=== PATIENT | male | born 1940 | race Caucasian/White ===

== ENCOUNTER 2016-07-30 22:01 | Inpatient (IN) | payer MEDICAID, OTHER ==
[2016-07-30] MEDS ORDERED: Sodium Chloride 0.9% 1,000 ML IV ONE ×2 (22:27→23:50)
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
[2016-07-30] MEDS ORDERED: Sodium Chloride 0.9% 1,000 ML ONE (23:19)
[2016-07-30 23:22] LABS: BASO # 0.1 K/uL (0.0-0.2); BASO % 0.9 % (0.0-2.0); EOS # 0.5 K/uL (0.0-0.7); EOS % 6.2 % (0.0-4.0); HEMATOCRIT 37.9 % (35.0-51.0); LYMPH # 3.2 K/uL (1.0-4.3); LYMPH % 43.9 % (20.0-40.0); MEAN CORPUSCULAR HEMOGLOBIN 27.2 pg (27.0-31.0); MEAN CORPUSCULAR HGB CONC 33.6 g/dL (33.0-37.0); MEAN PLATELET VOLUME 8.9 fL (7.2-11.7); MONO # 0.4 K/uL (0.0-0.8); MONO % 5.4 % (0.0-10.0); NRBC % 0.1 % (0.0-2.0); WHITE BLOOD COUNT 7.3 K/uL (4.8-10.8)
[2016-07-30 23:32] LABS: CHLORIDE 98 mmol/L (98-107); SODIUM 135 mmol/L (132-148)
[2016-07-30 23:34] LABS: GFR AFRICAN-AMERICAN > 60
[2016-07-30 23:35] LABS: ALB/GLOB RATIO 1.5 (1.0-2.1); ALKALINE PHOSPHATASE 68 U/L (38-126); ALT/SGPT 27 U/L (21-72); AST/SGOT 21 U/L (17-59); BILIRUBIN,TOTAL 0.4 mg/dL (0.2-1.3); BLOOD UREA NITROGEN 14 mg/dL (9-20); CARBON DIOXIDE 24 mmol/L (22-30); GLUCOSE,RANDOM 107 mg/dL (75-110); TOTAL PROTEIN 7.1 g/dL (6.3-8.3)
[2016-07-31] MEDS: levETIRAcetam 500 MG in Sodium Chloride 0.9% 100 ML IVPB SCH ×2 (00:37→11:25)
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
[2016-07-31] MEDS: (Novolin R) Insulin Human Regular 100 units/ml vial SC SCH ×4 (04:58→18:06)
[2016-07-31] MEDS: Aritificial Tears (15ml) OD SCH ×5 (05:15→21:53)
--- NOTE | 2016-07-31 08:29 | RAD ---
HISTORY: r/o infiltrate bed 4 COMPARISON: No prior. FINDINGS: LUNGS: Mild venous congestion. Patchy increased markings within the right infrahilar region. Linear atelectasis at the left lung base with some blunting of the left costophrenic angle. Right hilar prominence. PLEURA: No significant pleural effusion identified, no pneumothorax apparent. CARDIOVASCULAR: Tortuous aorta. OSSEOUS STRUCTURES: No significant abnormalities. VISUALIZED UPPER ABDOMEN: Normal. OTHER FINDINGS: None. IMPRESSION: Mild venous congestion. Patchy increased markings within the right infrahilar region. Linear atelectasis at the left lung base with some blunting of the left costophrenic angle. Right hilar prominence.
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
[2016-07-31] MEDS ORDERED: POLYETHYLENE GLYCOL 3350 17 GM/Dose PACKET PO SCH (10:00)
--- NOTE | 2016-07-31 14:04 | CT ---
PROCEDURE: CT HEAD WITHOUT CONTRAST. HISTORY: Headache COMPARISON: None available. TECHNIQUE: Axial computed tomography images were obtained through the head/brain without intravenous contrast. Radiation dose: Total exam DLP = 948 mGy-cm. This CT exam was performed using one or more of the following dose reduction techniques: Automated exposure control, adjustment of the mA and/or kV according to patient size, and/or use of iterative reconstruction technique. FINDINGS: HEMORRHAGE: Large right extra-axial hemorrhage with severe mass effect, and midline shift. The hemorrhage measures up to 3 centimeters in maximal dimension. Associated asymmetric enlargement of the right temporal horn suggestive of early entrapment. BRAIN: No mass effect or edema. No atrophy or chronic microvascular ischemic changes. VENTRICLES: Unremarkable. No hydrocephalus. CALVARIUM: Unremarkable. PARANASAL SINUSES: Unremarkable as visualized. No significant inflammatory changes. MASTOID AIR CELLS: Unremarkable as visualized. No inflammatory changes. OTHER FINDINGS: None. IMPRESSION: Large right acute extra-axial hemorrhage with severe mass effect and midline shift. Findings correspond to virtual Radiology interpretation.
--- NOTE | 2016-07-31 16:05 | CP.PCM.PN ---
Subjective - Date & Time of Evaluation Date of Evaluation: 07/31/16 Time of Evaluation: 16:05 - Subjective Subjective: no cp, no sob, moving all ext no problems with vision Objective - Vital Signs/Intake and Output Vital Signs (last 24 hours): Temp Pulse Resp BP Pulse Ox 97.9 F 62 16 128/69 93 L 07/31/16 08:00 07/31/16 13:31 07/31/16 13:31 07/31/16 13:31 07/31/16 13:31 Intake and Output: 07/31/16 07/31/16 06:59 18:59 Intake Total 300 610 Output Total 420 350 Balance -120 260 - Medications Medications: Current Medications Artificial Tears (Artificial Tears) 1 ml OD Q4H [facility] Last Admin: 07/31/16 13:06 Dose: 1 drp Famotidine (Pepcid) 20 mg PO DAILY [facility] Last Admin: 07/31/16 09:51 Dose: 20 mg Levetiracetam 500 mg/ Sodium (Chloride) 105 mls @ 420 mls/hr IVPB Q12H [facility] Last Admin: 07/31/16 11:25 Dose: 420 mls/hr Insulin Human Regular (Novolin R) 0 unit SC Q6H [facility] PRN Reason: Protocol Last Admin: 07/31/16 11:58 Dose: Not Given Latanoprost (Xalatan Opht) 0 ml OD HS [facility] Lisinopril (Zestril) 5 mg PO DAILY [facility] Last Admin: 07/31/16 09:51 Dose: 5 mg Timolol Maleate (Timoptic 0.5% Ophth Soln) 0 drop OD DAILY [facility] Last Admin: 07/31/16 12:05 Dose: 1 drop - Labs Labs: PT 11.2 SECONDS (9.7-12.2) 07/30/16 23:18 INR 1.0 07/30/16 23:18 APTT 29 SECONDS (21-34) 07/30/16 23:18 - Constitutional Appears: Well, No Acute Distress - Head Exam Head Exam: ATRAUMATIC - Eye Exam Additional comments: left eye no vision due to old injury likely - ENT Exam ENT Exam: Mucous Membranes Moist - Respiratory Exam Respiratory Exam: Clear to Ausculation Bilateral, NORMAL BREATHING PATTERN. absent: Accessory Muscle Use, Rales, Rhonchi, Wheezes - Cardiovascular Exam Cardiovascular Exam: REGULAR RHYTHM, +S1, +S2 - GI/Abdominal Exam GI & Abdominal Exam: Soft, Normal Bowel Sounds. absent: Tenderness, Organomegaly - Neurological Exam Neurological Exam: Alert, Awake, Oriented x3 Neuro motor strength exam: Left Upper Extremity: 5, Right Upper Extremity: 5, Left Lower Extremity: 5, Right Lower Extremity: 5 - Psychiatric Exam Psychiatric exam: Normal Affect, Normal Mood - Skin Skin Exam: Normal Color Assessment and Plan - Assessment and Plan (Free Text) Assessment: 1. Right Intracranial Hemorrhage - Neurosurgery, Dr. Bolden, consulted. Plan for surgery tomorrow. - Levetiracetam 500 mg IVPB Q12H - Normal Saline IV @ 75 cc - Blood pressure controlled 146/88 - NPO Diet - Neuro checks q2h CT Head without contrast: 1. The left orbit appears to be rotated 90 degrees to the right while the right orbit appears to be oriented normally. 2. 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 This results in severe mass effect on the underlying brain, including 1.4 cm of leftward midline shift and compression of the right lateral ventricle. Asymmetric enlargement of the right temporal horn suggestive of early entrapment. 2. Hypertension - Hold home medication Lisinopril 5 mg po daily 3. DM -2 -holding metformin 4. Constipation - Consider continuing home medication Miralax Patient's risk factors are DM2, Age, Hypertension the Hypertension and DM are medically optimized for OR. Although it seems this is an emergent procedure and likely risk vs benefit should not be assessed in that situation in any case for emergent procedures. ECHO was ordered and cardiology consultation was placed as well. moderate patient risk for high risk procedure risk of dm, hypertension and age we will monitor post operatively
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
[2016-07-31] MEDS: Dextrose 5%/0.45% NS 1,000 ML IV SCH (20:40)
[2016-07-31] MEDS: Latanoprost 2.5 ml Opht Soln OD SCH (21:54)
[2016-08-01] MEDS: levETIRAcetam 500 MG in Sodium Chloride 0.9% 100 ML IVPB SCH ×3 (00:13→22:51)
[2016-08-01] MEDS: (Novolin R) Insulin Human Regular 100 units/ml vial SC SCH ×4 (01:29→18:08)
[2016-08-01] MEDS: Aritificial Tears (15ml) OD SCH ×6 (02:26→22:34)
[2016-08-01 06:22] LABS: BASO % 0.7 % (0.0-2.0); EOS # 0.3 K/uL (0.0-0.7); EOS % 5.8 % (0.0-4.0); HEMATOCRIT 33.1 % (35.0-51.0); LYMPH % 39.8 % (20.0-40.0); MEAN CORPUSCULAR HEMOGLOBIN 27.5 pg (27.0-31.0); MEAN CORPUSCULAR HGB CONC 31.2 g/dL (33.0-37.0); MEAN PLATELET VOLUME 8.8 fL (7.2-11.7); MONO # 0.3 K/uL (0.0-0.8); RED CELL DISTRIBUTION WIDTH 15.6 % (11.5-14.5); WHITE BLOOD COUNT 4.9 K/uL (4.8-10.8)
[2016-08-01 06:28] LABS: MEAN CELL VOLUME 88.2 fL (80.0-94.0)
[2016-08-01 06:44] LABS: CHLORIDE 97 mmol/L (98-107)
[2016-08-01 06:45] LABS: POTASSIUM 3.1 mmol/L (3.6-5.2); SODIUM 129 mmol/L (132-148)
[2016-08-01 06:47] LABS: BILIRUBIN,TOTAL 0.6 mg/dL (0.2-1.3); GFR AFRICAN-AMERICAN > 60
[2016-08-01 06:48] LABS: ALB/GLOB RATIO 1.3 (1.0-2.1); ALKALINE PHOSPHATASE 58 U/L (38-126); ALT/SGPT 26 U/L (21-72); AST/SGOT 19 U/L (17-59); BLOOD UREA NITROGEN 8 mg/dL (9-20); CALCIUM 7.3 mg/dl (8.6-10.4); CARBON DIOXIDE 23 mmol/L (22-30); PHOSPHOROUS 3.2 mg/dL (2.5-4.5)
[2016-08-01 06:49] LABS: MAGNESIUM 1.8 mg/dL (1.6-2.3)
[2016-08-01 07:11] LABS: GLUCOSE,RANDOM 655 mg/dL (75-110)
[2016-08-01] MEDS ORDERED: ceFAZolin IV 1 gm in Dextrose 0 GM/0 ML BAG IVPB ONE (07:31)
[2016-08-01] MEDS ORDERED: Absorbable Gelatin Sponge Size 100 ONE (07:31)
[2016-08-01] MEDS ORDERED: Bupivacaine HCl 0.5% PF (10 ml) Inj ONE (07:31)
[2016-08-01] MEDS ORDERED: Bacitracin Ointment 30 GM TUBE ONE (07:32)
[2016-08-01] MEDS ORDERED: Thrombin Topical 5,000 IU Spray Kit ONE (07:32)
[2016-08-01] MEDS ORDERED: Lidocaine 1% Inj (20ml) ONE (07:32)
[2016-08-01] MEDS ORDERED: Absorbable Gelatin Sponge Size 12-7 ONE (07:33)
[2016-08-01] MEDS ORDERED: Lidocaine 2% w Epi 1:100,000 Inj IJ ONE (07:36)
--- NOTE | 2016-08-01 07:41 | CARD ---
APPROVED REPORT EXAM: Two-dimensional and M-mode echocardiogram with Doppler and color Doppler. Other Information Quality : GoodRhythm : NSR INDICATION PRE-OP CARDIAC CLEARANCE RISK FACTORS Hypertension Diabetes M-Mode DIMENSIONS RVDd2.87 (2.1-3.2cm)Left Atrium (MM)3.69 (2.5-4.0cm) IVSd0.77 (0.7-1.1cm)Aortic Root3.47 (2.2-3.7cm) LVDd3.71 (4.0-5.6cm)Aortic Cusp Exc.2.10 (1.5-2.0cm) PWd0.80 (0.7-1.1cm)FS (%) 51 % LVDs1.81 (2.0-3.8cm)LVEF (%)83 (>50%) Mitral Valve MV E Bkdcnyyl95.6cm/sMV A Hexzsnpw91.0cm/sE/A ratio0.7 TDI E/Lateral E'0.0E/Medial E'0.0 Tricuspid Valve TR Peak [id number]/sTR Peak Gr.[id number] LEFT VENTRICLE The left ventricle is normal size. There is normal left ventricular wall thickness. The left ventricular function is normal. The left ventricular ejection fraction is within the normal range. The Ejection Fraction is >55%. No regional wall motion abnormalities noted. The left ventricular diastolic function is normal. No left ventricle thrombus noted on this study. There is no ventricular septal defect visualized. There is no left ventricular aneurysm. There is no mass noted in the left ventricle. RIGHT VENTRICLE The right ventricle is normal size. There is normal right ventricular wall thickness. The right ventricular systolic function is normal. ATRIA The left atrium size is normal. The right atrium size is normal. The interatrial septum is intact with no evidence for an atrial septal defect. AORTIC VALVE The aortic valve is normal in structure and function. No aortic regurgitation is present. There is no aortic valvular stenosis. There is no aortic valvular vegetation. MITRAL VALVE The mitral valve is normal in structure and function. There is no evidence of mitral valve prolapse. There is no mitral valve stenosis. There is no mitral valve regurgitation noted. TRICUSPID VALVE The tricuspid valve is normal in structure and function. There is trace tricuspid regurgitation. Right ventricular systolic pressure is estimated at 30-40 mmHg. There is mild pulmonary hypertension. There is no tricuspid valve prolapse or vegetation. There is no tricuspid valve stenosis. PULMONIC VALVE The pulmonary valve is normal in structure and function. There is no pulmonic valvular regurgitation. There is no pulmonic valvular stenosis. GREAT VESSELS The aortic root is normal in size. The ascending aorta is normal in size. The pulmonary artery is normal. The IVC is normal in size and collapses >50% with inspiration. PERICARDIAL EFFUSION The pericardium appears normal. There is no pleural effusion. <Conclusion> The left ventricle is normal size. The left ventricular ejection fraction is within the normal range. The Ejection Fraction is >55%.
[2016-08-01] MEDS ORDERED: Propofol 10 mg/ml Inj (20 ML) ONE ×2 (07:45→09:10)
[2016-08-01] MEDS ORDERED: Bacitracin 50,000 UNIT in Sodium Chloride 0.9% Irrig 1,000 ML IR SCH (08:00)
[2016-08-01] MEDS ORDERED: Lactated Ringer's 1,000 ML IV ONE (08:15)
[2016-08-01] MEDS ORDERED: Vancomycin 1 gm/D5W 200 ml 1 GM/200 ML BAG IVPB ONE (08:22)
[2016-08-01] MEDS ORDERED: Remifentanil 1 mg/3 ml Vial IV ONE (08:37)
--- NOTE | 2016-08-01 08:44 | CARD ---
APPROVED REPORT EKG Measurement Heart [id number] CO 180P50 [id number] <Conclusion> Normal sinus rhythm Normal ECG
[2016-08-01] MEDS ORDERED: Rocuronium 10 mg/ml (10 ml) ONE (09:06)
[2016-08-01] MEDS ORDERED: Neostigmine Methylsulfate 3mg/3ml Syringe IV ONE (09:06)
--- NOTE | 2016-08-01 09:27 | PCM.SURG1 ---
Surgeon's Initial Post Op Note - Surgeon's Notes Surgeon: bertha Eligibility Supervisor: none Type of Anesthesia: General Endo Pre-Operative Diagnosis: r csdh Operative Findings: csdh Post-Operative Diagnosis: same Operation Performed: naomy hole evac of sdh Specimen/Specimens Removed: sdh Estimated Blood Loss: EBL {In ML}: 150 Blood Products Given: N/A Drains Used: Manteno (10 fr rrc in sd space to sterile garzon bag), Sump Drain Post-Op Condition: Good Date of Surgery/Procedure: 08/01/16 Time of Surgery/Procedure: 09:26
--- NOTE | 2016-08-01 13:57 | CP.PCM.PN ---
Subjective - Date & Time of Evaluation Date of Evaluation: 08/01/16 Time of Evaluation: 13:40 - Subjective Subjective: Medical Attending Note Follow-up: Subdural Hemorrhage s/p [place] and evacuation POD 0, Hypertension, Diabetes type 2, Constipation Patient seen and examined at bedside. Patient's [place] language is Urdu. Assistance in translation provided by medical student, Garret, Urdu-speaking. At bedside, person who identifies himself as patient's family friend. Patient completed Kyler hole and evacuation of subdural hemorrhage this morning by neurosurgery. Patient denies headache, denies dizziness, denies chest pain, denies shortness of breathe, denies abdominal pain, denies nausea, denies vomitting, and reports he wants to get up and use the bathroom. Explained to the patient he should not be getting up or moving around in light of surgery he completed this morning, instructed patient that it is okay, the nursing will help to use the bathroom. Patient noted has left eye adduction, which reported by family friend has been present for quite some time and that he is here visiting. Objective - Vital Signs/Intake and Output Vital Signs (last 24 hours): Temp Pulse Resp BP Pulse Ox 98 F 74 21 156/85 H 99 08/01/16 12:00 08/01/16 13:15 08/01/16 13:15 08/01/16 13:15 08/01/16 13:15 Intake and Output: 08/01/16 08/01/16 06:59 18:59 Intake Total 750 625 Output Total 800 500 Balance -50 125 - Medications Medications: Current Medications Artificial Tears (Artificial Tears) 1 ml OD Q4H [facility] Last Admin: 08/01/16 13:23 Dose: 1 drp Famotidine (Pepcid) 20 mg PO DAILY [facility] Last Admin: 08/01/16 10:17 Dose: 20 mg Levetiracetam 500 mg/ Sodium (Chloride) 105 mls @ 420 mls/hr IVPB Q12H [facility] Last Admin: 08/01/16 11:39 Dose: 420 mls/hr Dextrose/Sodium Chloride (Dextrose 5%/0.45% Ns 1000 Ml) 1,000 mls @ 75 mls/hr IV .[id number] [facility] Last Admin: 07/31/16 20:40 Dose: 75 mls/hr Insulin Human Regular (Novolin R) 0 unit SC Q6H [facility] PRN Reason: Protocol Last Admin: 08/01/16 11:40 Dose: Not Given Latanoprost (Xalatan Opht) 0 ml OD HS [facility] Last Admin: 07/31/16 21:54 Dose: 2.5 ml Lisinopril (Zestril) 5 mg PO DAILY [facility] Last Admin: 08/01/16 10:20 Dose: Not Given Timolol Maleate (Timoptic 0.5% Ophth Soln) 0 drop OD DAILY [facility] Last Admin: 08/01/16 10:17 Dose: 1 drop - Labs Labs: 08/01/16 06:17 08/01/16 06:17 PT 11.2 SECONDS (9.7-12.2) 07/30/16 23:18 INR 1.0 07/30/16 23:18 APTT 29 SECONDS (21-34) 07/30/16 23:18 - Constitutional Appears: Non-toxic, No Acute Distress - Head Exam Additional comments: Dressing over right occipital; drain connected; bloody output Left eye prominently adducts Speaks clearly No noted facial droop - Eye Exam Eye Exam: absent: Conjunctival injection, Periorbital swelling, Scleral icterus Pupil Exam: NORMAL ACCOMODATION (right eye), PERRL ( ) - ENT Exam ENT Exam: Mucous Membranes Moist - Respiratory Exam Respiratory Exam: Clear to Ausculation Bilateral, NORMAL BREATHING PATTERN. absent: Rales, Rhonchi, Wheezes - Cardiovascular Exam Cardiovascular Exam: REGULAR RHYTHM, +S1, +S2 - GI/Abdominal Exam GI & Abdominal Exam: Soft, Normal Bowel Sounds. absent: Distended, Firm, Guarding, Rigid, Tenderness, Rebound - Extremities Exam Extremities Exam: absent: Pedal Edema, Tenderness - Back Exam Back Exam: absent: CVA tenderness (L), CVA tenderness (R) - Neurological Exam Neurological Exam: Alert, Awake, Oriented x3 Additional comments: Left eye prominent adduction No facial droop +gag reflex negative babinski's bilateral LLE strength 5/5 b/l LLE and ULE Patient's arms wrapped binders; able to wiggle fingers passive MAIKEL intact-->patient able to retract legs based on touch, pain, and voluntary - Psychiatric Exam Psychiatric exam: Normal Affect, Normal Mood - Skin Skin Exam: Dry, Normal Color, Warm Assessment and Plan (1) Cerebral hemorrhage Assessment & Plan: * Neurosurgery: Dr. Bolden on board-->help appreciated * Head CT (07/30/16): CT Head without contrast: 1. The left orbit appears to be rotated 90 degrees to the right while the right orbit appears to be oriented normally. 2. 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 This results in severe mass effect on the underlying brain, including 1.4 cm of leftward midline shift and compression of the right lateral ventricle. Asymmetric enlargement of the right temporal horn suggestive of early entrapment. * Keppra 500mg IVPB Q 12hours for seizure prophylaxis * POD 0: s/p Kyler hole and evacuation of subdural hemorrhage with Dang and David drain * Post-surgical management per neurosurgery Status: Acute (2) Hypertension Assessment & Plan: Lisinopril 5mg PO daily Status: Chronic (3) Diabetes Assessment & Plan: [id number] ordered Accuchecks Q6 hours Regular insulin sliding scale subq Q 6hours Status: Chronic (4) Constipation Status: Chronic (5) Prophylactic measure Assessment & Plan: Contraindication secondary to subdural hemorrhage Pepcid 20mg PO daily Status: Acute
[2016-08-01] MEDS: Dextrose 5%/0.45% NS 1,000 ML IV SCH ×2 (14:03→22:45)
--- NOTE | 2016-08-01 14:16 | CP.CCUPN ---
<Keegan Aponte - Last Filed: 08/01/16 14:05> CCU Subjective - Physician Review Subjective (Free Text): 08/01/16 14:05 PGY-1 ICU progress note Pt seen and examined at bedside. POD#0 naomy hole evacuation of subdural hematoma. Tolerated procedure well. Critical Care Time Spent (in minutes): 35 CCU Objective - Vital Signs / Intake & Output Vital Signs (Last 4 hours): Vital Signs Temp Pulse Resp BP Pulse Ox 08/01/16 13:15 74 21 156/85 H 99 08/01/16 12:02 73 24 146/88 99 08/01/16 12:00 98 F 08/01/16 11:20 72 19 146/82 98 08/01/16 11:05 71 29 H 137/82 100 08/01/16 10:50 71 28 H 129/71 99 08/01/16 10:35 71 26 H 124/80 97 08/01/16 10:20 75 25 H 126/68 99 Intake and Output (Last 8hrs): Intake & Output 07/31/16 08/01/16 08/01/16 22:59 06:59 14:59 Intake Total 75 675 625 Output Total 400 800 500 Balance -325 -125 125 Intake: Intake, IV Amount 75 675 575 Left Antecubital 75 675 575 Oral 0 50 Output: Urine 400 800 500 Urine, Voided 400 800 500 Other: # Voids Urine, Voided 1 1 - Physical Exam Head: Positive for: Other (bandages in place and C/D/I) Pupils: Positive for: PERRL Extroacular Muscles: Positive for: EOMI Respiratory/Chest: Positive for: Clear to Auscultation, Good Air Exchange Cardiovascular: Positive for: Regular Rate and Rhythm, Normal S1, S2 Abdomen: Positive for: Normal Bowel Sounds. Negative for: Tenderness, Distention Upper Extremity: Positive for: NORMAL PULSES, Neurovascularly Intact Lower Extremity: Positive for: NORMAL PULSES, Neurovascularly Intact Neurological: Positive for: Speech Normal, Motor Func Grossly Intact Skin: Positive for: Warm, Dry Psychiatric: Positive for: Alert, Oriented x 3 - Medications Active Medications: Active Medications Generic Name Dose Route Start Last Admin Trade Name Freq PRN Reason Stop Dose Admin Artificial Tears 1 ml 07/31/16 05:15 08/01/16 13:23 Artificial Tears OD 1 drp Q4H GORDO Administration Famotidine 20 mg 07/31/16 10:00 08/01/16 10:17 Pepcid PO 20 mg DAILY GORDO Administration Levetiracetam 500 mg/ Sodium 105 mls @ 420 mls/hr 07/30/16 23:45 08/01/16 11: 39 Chloride IVPB 420 mls/hr Q12H GORDO Administration Dextrose/Sodium Chloride 1,000 mls @ 75 mls/hr 07/31/16 20:30 08/01/16 14:03 Dextrose 5%/0.45% Ns 1000 Ml IV 75 mls/hr .[id number] GORDO Administration Insulin Human Regular 0 unit 07/31/16 12:00 08/01/16 11:40 Novolin R SC Not Given Q6H GORDO Protocol Latanoprost 0 ml 07/31/16 22:00 07/31/16 21:54 Xalatan Opht OD 2.5 ml HS GORDO Administration Lisinopril 5 mg 07/31/16 10:00 08/01/16 10:20 Zestril PO Not Given DAILY GORDO Timolol Maleate 0 drop 07/31/16 11:15 08/01/16 10:17 Timoptic 0.5% Ophth Soln OD 1 drop DAILY GORDO Administration - Patient Studies Lab Studies: Microbiology Studies 07/31/16 01:43 MRSA Culture (Admit) - Final Nose MRSA NOT DETECTED Lab Studies 08/01/16 08/01/16 08/01/16 Range/Units 11:27 07:57 06:39 WBC (4.8-10.8) K/uL RBC (4.40-5.90) Mil/uL Hgb (12.0-18.0) g/dL Hct (35.0-51.0) % MCV (80.0-94.0) fL MCH (27.0-31.0) pg MCHC (33.0-37.0) g/dL RDW (11.5-14.5) % Plt Count (130-400) K/uL MPV (7.2-11.7) fL Neut % (Auto) (50.0-75.0) % Lymph % (Auto) (20.0-40.0) % Shelby % (Auto) (0.0-10.0) % Eos % (Auto) (0.0-4.0) % Baso % (Auto) (0.0-2.0) % Neut # (1.8-7.0) K/uL Lymph # (1.0-4.3) K/uL Shelby # (0.0-0.8) K/uL Eos # (0.0-0.7) K/uL Baso # (0.0-0.2) K/uL Sodium (132-148) mmol/L Potassium (3.6-5.2) mmol/L Chloride (98-107) mmol/L Carbon Dioxide (22-30) mmol/L Anion Gap (10-20) BUN (9-20) mg/dL Creatinine (0.8-1.5) MG/DL Est GFR ( Amer) Est GFR (Non-Af Amer) POC Glucose (mg/dL) 149 H 127 H 110 (65-110) mg/dL Random Glucose (75-110) mg/dL Calcium (8.6-10.4) mg/dl Phosphorus (2.5-4.5) mg/dL Magnesium (1.6-2.3) mg/dL Total Bilirubin (0.2-1.3) mg/dL AST (17-59) U/L ALT (21-72) U/L Alkaline Phosphatase (38-126) U/L Total Protein (6.3-8.3) g/dL Albumin (3.5-5.0) g/dL Globulin (2.2-3.9) gm/dL Albumin/Globulin Ratio (1.0-2.1) 08/01/16 08/01/16 08/01/16 Range/Units 06:17 06:17 01:23 WBC 4.9 (4.8-10.8) K/uL RBC 3.75 L (4.40-5.90) Mil/uL Hgb 10.3 L D (12.0-18.0) g/dL Hct 33.1 L (35.0-51.0) % MCV 88.2 D (80.0-94.0) fL MCH 27.5 (27.0-31.0) pg MCHC 31.2 L (33.0-37.0) g/dL RDW 15.6 H (11.5-14.5) % Plt Count 140 (130-400) K/uL MPV 8.8 (7.2-11.7) fL Neut % (Auto) 46.7 L (50.0-75.0) % Lymph % (Auto) 39.8 (20.0-40.0) % Shelby % (Auto) 7.0 (0.0-10.0) % Eos % (Auto) 5.8 H (0.0-4.0) % Baso % (Auto) 0.7 (0.0-2.0) % Neut # 2.3 (1.8-7.0) K/uL Lymph # 2.0 (1.0-4.3) K/uL Shelby # 0.3 (0.0-0.8) K/uL Eos # 0.3 (0.0-0.7) K/uL Baso # 0.0 (0.0-0.2) K/uL Sodium 129 L (132-148) mmol/L Potassium 3.1 L (3.6-5.2) mmol/L Chloride 97 L (98-107) mmol/L Carbon Dioxide 23 (22-30) mmol/L Anion Gap 12 (10-20) BUN 8 L (9-20) mg/dL Creatinine 0.8 (0.8-1.5) MG/DL Est GFR ( Amer) > 60 Est GFR (Non-Af Amer) > 60 POC Glucose (mg/dL) 99 (65-110) mg/dL Random Glucose 655 H* D (75-110) mg/dL Calcium 7.3 L (8.6-10.4) mg/dl Phosphorus 3.2 (2.5-4.5) mg/dL Magnesium 1.8 (1.6-2.3) mg/dL Total Bilirubin 0.6 (0.2-1.3) mg/dL AST 19 (17-59) U/L ALT 26 (21-72) U/L Alkaline Phosphatase 58 (38-126) U/L Total Protein 6.0 L (6.3-8.3) g/dL Albumin 3.4 L (3.5-5.0) g/dL Globulin 2.6 (2.2-3.9) gm/dL Albumin/Globulin Ratio 1.3 (1.0-2.1) 07/31/16 Range/Units 17:52 WBC (4.8-10.8) K/uL RBC (4.40-5.90) Mil/uL Hgb (12.0-18.0) g/dL Hct (35.0-51.0) % MCV (80.0-94.0) fL MCH (27.0-31.0) pg MCHC (33.0-37.0) g/dL RDW (11.5-14.5) % Plt Count (130-400) K/uL MPV (7.2-11.7) fL Neut % (Auto) (50.0-75.0) % Lymph % (Auto) (20.0-40.0) % Shelby % (Auto) (0.0-10.0) % Eos % (Auto) (0.0-4.0) % Baso % (Auto) (0.0-2.0) % Neut # (1.8-7.0) K/uL Lymph # (1.0-4.3) K/uL Shelby # (0.0-0.8) K/uL Eos # (0.0-0.7) K/uL Baso # (0.0-0.2) K/uL Sodium (132-148) mmol/L Potassium (3.6-5.2) mmol/L Chloride (98-107) mmol/L Carbon Dioxide (22-30) mmol/L Anion Gap (10-20) BUN (9-20) mg/dL Creatinine (0.8-1.5) MG/DL Est GFR ( Amer) Est GFR (Non-Af Amer) POC Glucose (mg/dL) 90 (65-110) mg/dL Random Glucose (75-110) mg/dL Calcium (8.6-10.4) mg/dl Phosphorus (2.5-4.5) mg/dL Magnesium (1.6-2.3) mg/dL Total Bilirubin (0.2-1.3) mg/dL AST (17-59) U/L ALT (21-72) U/L Alkaline Phosphatase (38-126) U/L Total Protein (6.3-8.3) g/dL Albumin (3.5-5.0) g/dL Globulin (2.2-3.9) gm/dL Albumin/Globulin Ratio (1.0-2.1) Laboratory Results - last 24 hr 07/31/16 08/01/16 08/01/16 17:52 01:23 06:17 WBC 4.9 RBC 3.75 L Hgb 10.3 L D Hct 33.1 L MCV 88.2 D MCH 27.5 MCHC 31.2 L RDW 15.6 H Plt Count 140 MPV 8.8 Neut % (Auto) 46.7 L Lymph % (Auto) 39.8 Shelby % (Auto) 7.0 Eos % (Auto) 5.8 H Baso % (Auto) 0.7 Neut # 2.3 Lymph # 2.0 Shelby # 0.3 Eos # 0.3 Baso # 0.0 Sodium Potassium Chloride Carbon Dioxide Anion Gap BUN Creatinine Est GFR ( Amer) Est GFR (Non-Af Amer) POC Glucose (mg/dL) 90 99 Random Glucose Calcium Phosphorus Magnesium Total Bilirubin AST ALT Alkaline Phosphatase Total Protein Albumin Globulin Albumin/Globulin Ratio 08/01/16 08/01/16 08/01/16 06:17 06:39 07:57 WBC RBC Hgb Hct MCV MCH MCHC RDW Plt Count MPV Neut % (Auto) Lymph % (Auto) Shelby % (Auto) Eos % (Auto) Baso % (Auto) Neut # Lymph # Shelby # Eos # Baso # Sodium 129 L Potassium 3.1 L Chloride 97 L Carbon Dioxide 23 Anion Gap 12 BUN 8 L Creatinine 0.8 Est GFR ( Amer) > 60 Est GFR (Non-Af Amer) > 60 POC Glucose (mg/dL) 110 127 H Random Glucose 655 H* D Calcium 7.3 L Phosphorus 3.2 Magnesium 1.8 Total Bilirubin 0.6 AST 19 ALT 26 Alkaline Phosphatase 58 Total Protein 6.0 L Albumin 3.4 L Globulin 2.6 Albumin/Globulin Ratio 1.3 08/01/16 11:27 WBC RBC Hgb Hct MCV MCH MCHC RDW Plt Count MPV Neut % (Auto) Lymph % (Auto) Shelby % (Auto) Eos % (Auto) Baso % (Auto) Neut # Lymph # Shelby # Eos # Baso # Sodium Potassium Chloride Carbon Dioxide Anion Gap BUN Creatinine Est GFR ( Amer) Est GFR (Non-Af Amer) POC Glucose (mg/dL) 149 H Random Glucose Calcium Phosphorus Magnesium Total Bilirubin AST ALT Alkaline Phosphatase Total Protein Albumin Globulin Albumin/Globulin Ratio Fingerstick Blood Sugar Results: 149 Review of Systems - Review of Systems All systems: reviewed and no additional remarkable complaints except (where noted in HPI) Critical Care Progress Note - Nutrition Nutrition: Nutrition Category Date Time Status NPO Diet [DIET] Diets 07/30/16 Dinner Active Assessment/Plan - Assessment and Plan (Free Text) Assessment: This is a 75 yo M s/p right sided naomy hole evacuation of subdural hematoma, POD #0 Plan: Neuro: AAOx3 Keppra for seizure ppx Continue to monitor for any changes in mental status Cardiovascular: Hemodynamically stable Continue lisinopril Pulmonary: Saturating well in no respiratory distress Monitor O2 sats Gastrointestinal: NPO for now No acute issues Hematology: No issues, monitor H/H Endocrine: No acute issues Renal: Cont IVF Monitor electrolytes and replete as needed Strict I/O Infectious Disease: Afebrile, no leukocytosis GI Prophylaxis: Pepcid DVT Prophylaxis: Not indicated at this time <Justino Kumari S - Last Filed: 08/01/16 17:51> CCU Objective - Vital Signs / Intake & Output Vital Signs (Last 4 hours): Vital Signs Temp Pulse Resp BP Pulse Ox 08/01/16 16:00 98 F 08/01/16 15:15 78 23 144/79 99 08/01/16 14:13 82 26 H 147/85 98 Intake and Output (Last 8hrs): Intake & Output 08/01/16 08/01/16 08/01/16 06:59 14:59 22:59 Intake Total 675 700 150 Output Total 800 850 150 Balance -125 -150 0 Intake: Intake, IV Amount 675 650 150 Left Antecubital 675 650 150 Oral 50 Output: Urine 800 850 150 Urine, Voided 800 850 150 Other: # Voids Urine, Voided 1 - Medications Active Medications: Active Medications Generic Name Dose Route Start Last Admin Trade Name Freq PRN Reason Stop Dose Admin Artificial Tears 1 ml 07/31/16 05:15 08/01/16 16:35 Artificial Tears OD 1 drp Q4H GORDO Administration Famotidine 20 mg 07/31/16 10:00 08/01/16 10:17 Pepcid PO 20 mg DAILY GORDO Administration Levetiracetam 500 mg/ Sodium 105 mls @ 420 mls/hr 07/30/16 23:45 08/01/16 11: 39 Chloride IVPB 420 mls/hr Q12H GORDO Administration Dextrose/Sodium Chloride 1,000 mls @ 75 mls/hr 07/31/16 20:30 08/01/16 14:03 Dextrose 5%/0.45% Ns 1000 Ml IV 75 mls/hr .[id number] GORDO Administration Insulin Human Regular 0 unit 07/31/16 12:00 08/01/16 11:40 Novolin R SC Not Given Q6H GORDO Protocol Latanoprost 0 ml 07/31/16 22:00 07/31/16 21:54 Xalatan Opht OD 2.5 ml HS GORDO Administration Lisinopril 5 mg 07/31/16 10:00 08/01/16 10:20 Zestril PO Not Given DAILY GORDO Timolol Maleate 0 drop 07/31/16 11:15 08/01/16 10:17 Timoptic 0.5% Ophth Soln OD 1 drop DAILY GORDO Administration - Patient Studies Lab Studies: Microbiology Studies 07/31/16 01:43 MRSA Culture (Admit) - Final Nose MRSA NOT DETECTED Lab Studies 08/01/16 08/01/16 08/01/16 Range/Units 16:31 16:31 11:27 WBC (4.8-10.8) K/uL RBC (4.40-5.90) Mil/uL Hgb (12.0-18.0) g/dL Hct (35.0-51.0) % MCV (80.0-94.0) fL MCH (27.0-31.0) pg MCHC (33.0-37.0) g/dL RDW (11.5-14.5) % Plt Count (130-400) K/uL MPV (7.2-11.7) fL Neut % (Auto) (50.0-75.0) % Lymph % (Auto) (20.0-40.0) % Shelby % (Auto) (0.0-10.0) % Eos % (Auto) (0.0-4.0) % Baso % (Auto) (0.0-2.0) % Neut # (1.8-7.0) K/uL Lymph # (1.0-4.3) K/uL Shelby # (0.0-0.8) K/uL Eos # (0.0-0.7) K/uL Baso # (0.0-0.2) K/uL Sodium 134 (132-148) mmol/L Potassium 4.2 (3.6-5.2) mmol/L Chloride 103 (98-107) mmol/L Carbon Dioxide 18 L (22-30) mmol/L Anion Gap 17 (10-20) BUN 8 L (9-20) mg/dL Creatinine 0.8 (0.8-1.5) MG/DL Est GFR ( Amer) > 60 Est GFR (Non-Af Amer) > 60 POC Glucose (mg/dL) 149 H (65-110) mg/dL Random Glucose 126 H (75-110) mg/dL Hemoglobin A1c 5.9 (4.2-6.5) % Calcium 8.7 (8.6-10.4) mg/dl Phosphorus (2.5-4.5) mg/dL Magnesium 2.0 (1.6-2.3) mg/dL Total Bilirubin (0.2-1.3) mg/dL AST (17-59) U/L ALT (21-72) U/L Alkaline Phosphatase (38-126) U/L Total Protein (6.3-8.3) g/dL Albumin (3.5-5.0) g/dL Globulin (2.2-3.9) gm/dL Albumin/Globulin Ratio (1.0-2.1) 08/01/16 08/01/16 08/01/16 Range/Units 07:57 06:39 06:17 WBC (4.8-10.8) K/uL RBC (4.40-5.90) Mil/uL Hgb (12.0-18.0) g/dL Hct (35.0-51.0) % MCV (80.0-94.0) fL MCH (27.0-31.0) pg MCHC (33.0-37.0) g/dL RDW (11.5-14.5) % Plt Count (130-400) K/uL MPV (7.2-11.7) fL Neut % (Auto) (50.0-75.0) % Lymph % (Auto) (20.0-40.0) % Shelby % (Auto) (0.0-10.0) % Eos % (Auto) (0.0-4.0) % Baso % (Auto) (0.0-2.0) % Neut # (1.8-7.0) K/uL Lymph # (1.0-4.3) K/uL Shelby # (0.0-0.8) K/uL Eos # (0.0-0.7) K/uL Baso # (0.0-0.2) K/uL Sodium 129 L (132-148) mmol/L Potassium 3.1 L (3.6-5.2) mmol/L Chloride 97 L (98-107) mmol/L Carbon Dioxide 23 (22-30) mmol/L Anion Gap 12 (10-20) BUN 8 L (9-20) mg/dL Creatinine 0.8 (0.8-1.5) MG/DL Est GFR ( Amer) > 60 Est GFR (Non-Af Amer) > 60 POC Glucose (mg/dL) 127 H 110 (65-110) mg/dL Random Glucose 655 H* D (75-110) mg/dL Hemoglobin A1c (4.2-6.5) % Calcium 7.3 L (8.6-10.4) mg/dl Phosphorus 3.2 (2.5-4.5) mg/dL Magnesium 1.8 (1.6-2.3) mg/dL Total Bilirubin 0.6 (0.2-1.3) mg/dL AST 19 (17-59) U/L ALT 26 (21-72) U/L Alkaline Phosphatase 58 (38-126) U/L Total Protein 6.0 L (6.3-8.3) g/dL Albumin 3.4 L (3.5-5.0) g/dL Globulin 2.6 (2.2-3.9) gm/dL Albumin/Globulin Ratio 1.3 (1.0-2.1) 08/01/16 08/01/16 07/31/16 Range/Units 06:17 01:23 17:52 WBC 4.9 (4.8-10.8) K/uL RBC 3.75 L (4.40-5.90) Mil/uL Hgb 10.3 L D (12.0-18.0) g/dL Hct 33.1 L (35.0-51.0) % MCV 88.2 D (80.0-94.0) fL MCH 27.5 (27.0-31.0) pg MCHC 31.2 L (33.0-37.0) g/dL RDW 15.6 H (11.5-14.5) % Plt Count 140 (130-400) K/uL MPV 8.8 (7.2-11.7) fL Neut % (Auto) 46.7 L (50.0-75.0) % Lymph % (Auto) 39.8 (20.0-40.0) % Shelby % (Auto) 7.0 (0.0-10.0) % Eos % (Auto) 5.8 H (0.0-4.0) % Baso % (Auto) 0.7 (0.0-2.0) % Neut # 2.3 (1.8-7.0) K/uL Lymph # 2.0 (1.0-4.3) K/uL Shelby # 0.3 (0.0-0.8) K/uL Eos # 0.3 (0.0-0.7) K/uL Baso # 0.0 (0.0-0.2) K/uL Sodium (132-148) mmol/L Potassium (3.6-5.2) mmol/L Chloride (98-107) mmol/L Carbon Dioxide (22-30) mmol/L Anion Gap (10-20) BUN (9-20) mg/dL Creatinine (0.8-1.5) MG/DL Est GFR ( Amer) Est GFR (Non-Af Amer) POC Glucose (mg/dL) 99 90 (65-110) mg/dL Random Glucose (75-110) mg/dL Hemoglobin A1c (4.2-6.5) % Calcium (8.6-10.4) mg/dl Phosphorus (2.5-4.5) mg/dL Magnesium (1.6-2.3) mg/dL Total Bilirubin (0.2-1.3) mg/dL AST (17-59) U/L ALT (21-72) U/L Alkaline Phosphatase (38-126) U/L Total Protein (6.3-8.3) g/dL Albumin (3.5-5.0) g/dL Globulin (2.2-3.9) gm/dL Albumin/Globulin Ratio (1.0-2.1) Laboratory Results - last 24 hr 07/31/16 08/01/16 08/01/16 17:52 01:23 06:17 WBC 4.9 RBC 3.75 L Hgb 10.3 L D Hct 33.1 L MCV 88.2 D MCH 27.5 MCHC 31.2 L RDW 15.6 H Plt Count 140 MPV 8.8 Neut % (Auto) 46.7 L Lymph % (Auto) 39.8 Shelby % (Auto) 7.0 Eos % (Auto) 5.8 H Baso % (Auto) 0.7 Neut # 2.3 Lymph # 2.0 Shelby # 0.3 Eos # 0.3 Baso # 0.0 Sodium Potassium Chloride Carbon Dioxide Anion Gap BUN Creatinine Est GFR ( Amer) Est GFR (Non-Af Amer) POC Glucose (mg/dL) 90 99 Random Glucose Hemoglobin A1c Calcium Phosphorus Magnesium Total Bilirubin AST ALT Alkaline Phosphatase Total Protein Albumin Globulin Albumin/Globulin Ratio 08/01/16 08/01/16 08/01/16 06:17 06:39 07:57 WBC RBC Hgb Hct MCV MCH MCHC RDW Plt Count MPV Neut % (Auto) Lymph % (Auto) Shelby % (Auto) Eos % (Auto) Baso % (Auto) Neut # Lymph # Shelby # Eos # Baso # Sodium 129 L Potassium 3.1 L Chloride 97 L Carbon Dioxide 23 Anion Gap 12 BUN 8 L Creatinine 0.8 Est GFR ( Amer) > 60 Est GFR (Non-Af Amer) > 60 POC Glucose (mg/dL) 110 127 H Random Glucose 655 H* D Hemoglobin A1c Calcium 7.3 L Phosphorus 3.2 Magnesium 1.8 Total Bilirubin 0.6 AST 19 ALT 26 Alkaline Phosphatase 58 Total Protein 6.0 L Albumin 3.4 L Globulin 2.6 Albumin/Globulin Ratio 1.3 08/01/16 08/01/16 08/01/16 11:27 16:31 16:31 WBC RBC Hgb Hct MCV MCH MCHC RDW Plt Count MPV Neut % (Auto) Lymph % (Auto) Shelby % (Auto) Eos % (Auto) Baso % (Auto) Neut # Lymph # Shelby # Eos # Baso # Sodium 134 Potassium 4.2 Chloride 103 Carbon Dioxide 18 L Anion Gap 17 BUN 8 L Creatinine 0.8 Est GFR ( Amer) > 60 Est GFR (Non-Af Amer) > 60 POC Glucose (mg/dL) 149 H Random Glucose 126 H Hemoglobin A1c 5.9 Calcium 8.7 Phosphorus Magnesium 2.0 Total Bilirubin AST ALT Alkaline Phosphatase Total Protein Albumin Globulin Albumin/Globulin Ratio Critical Care Progress Note - Nutrition Nutrition: Nutrition Category Date Time Status NPO Diet [DIET] Diets 07/30/16 Dinner Active Attending/Attestation - Attestation I have personally seen and examined this patient.: Yes I have fully participated in the care of the patient.: Yes I have reviewed all pertinent clinical information: Yes Notes (Text): 08/01/16 17:51 Patient seen and examined in the intensive care unit. Case discussed with house staff in the morning rounds. Patient is status post naomy hole evacuation of subdural hematoma Continue to monitor in intensive care unit.
[2016-08-01 16:59] LABS: CHLORIDE 103 mmol/L (98-107); POTASSIUM 4.2 mmol/L (3.6-5.2); SODIUM 134 mmol/L (132-148)
[2016-08-01 17:02] LABS: BLOOD UREA NITROGEN 8 mg/dL (9-20); CARBON DIOXIDE 18 mmol/L (22-30); GFR AFRICAN-AMERICAN > 60
[2016-08-01 17:03] LABS: CALCIUM 8.7 mg/dl (8.6-10.4); GLUCOSE,RANDOM 126 mg/dL (75-110)
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
[2016-08-01] MEDS: Latanoprost 2.5 ml Opht Soln OD SCH (22:35)
[2016-08-02] MEDS: (Novolin R) Insulin Human Regular 100 units/ml vial SC SCH ×4 (01:06→19:02)
[2016-08-02] MEDS: Aritificial Tears (15ml) OD SCH ×6 (01:10→21:17)
[2016-08-02] MEDS: Dextrose 5%/0.45% NS 1,000 ML IV SCH ×3 (02:49→21:16)
[2016-08-02 06:14] LABS: BASO % 0.4 % (0.0-2.0); EOS # 0.1 K/uL (0.0-0.7); EOS % 1.4 % (0.0-4.0); HEMATOCRIT 35.8 % (35.0-51.0); LYMPH % 20.9 % (20.0-40.0); MEAN CELL VOLUME 80.9 fL (80.0-94.0); MEAN CORPUSCULAR HEMOGLOBIN 26.6 pg (27.0-31.0); MEAN CORPUSCULAR HGB CONC 32.9 g/dL (33.0-37.0); MEAN PLATELET VOLUME 8.8 fL (7.2-11.7); MONO # 0.8 K/uL (0.0-0.8); MONO % 8.2 % (0.0-10.0); RED CELL DISTRIBUTION WIDTH 14.4 % (11.5-14.5); WHITE BLOOD COUNT 9.6 K/uL (4.8-10.8)
[2016-08-02 06:33] LABS: CHLORIDE 101 mmol/L (98-107)
[2016-08-02 06:34] LABS: POTASSIUM 3.7 mmol/L (3.6-5.2); SODIUM 135 mmol/L (132-148)
[2016-08-02 06:36] LABS: BILIRUBIN,TOTAL 0.9 mg/dL (0.2-1.3); GFR AFRICAN-AMERICAN > 60
[2016-08-02 06:37] LABS: ALB/GLOB RATIO 1.4 (1.0-2.1); ALKALINE PHOSPHATASE 68 U/L (38-126); ALT/SGPT 23 U/L (21-72); AST/SGOT 21 U/L (17-59); BLOOD UREA NITROGEN 7 mg/dL (9-20); CALCIUM 8.6 mg/dl (8.6-10.4); CARBON DIOXIDE 22 mmol/L (22-30); GLUCOSE,RANDOM 141 mg/dL (75-110); PHOSPHOROUS 4.1 mg/dL (2.5-4.5); TOTAL PROTEIN 6.7 g/dL (6.3-8.3)
[2016-08-02 06:38] LABS: MAGNESIUM 1.8 mg/dL (1.6-2.3)
--- NOTE | 2016-08-02 09:41 | CP.PCM.PN ---
Subjective - Date & Time of Evaluation Date of Evaluation: 08/02/16 Time of Evaluation: 09:40 - Subjective Subjective: pod1 a/a/ox3 goood [address] no drift ct better drain still putting out bloody csf will keep drain till tomorrow Objective - Vital Signs/Intake and Output Vital Signs (last 24 hours): Temp Pulse Resp BP Pulse Ox 98.4 F 87 18 144/80 97 08/02/16 08:00 08/02/16 08:01 08/02/16 08:01 08/02/16 08:01 08/02/16 08:01 Intake and Output: 08/02/16 08/02/16 06:59 18:59 Intake Total 1025 150 Output Total 690 85 Balance 335 65 - Medications Medications: Current Medications Artificial Tears (Artificial Tears) 1 ml OD Q4H [facility] Last Admin: 08/02/16 06:10 Dose: 1 drp Famotidine (Pepcid) 20 mg PO DAILY [facility] Last Admin: 08/01/16 10:17 Dose: 20 mg Levetiracetam 500 mg/ Sodium (Chloride) 105 mls @ 420 mls/hr IVPB Q12H [facility] Last Admin: 08/01/16 22:51 Dose: 420 mls/hr Dextrose/Sodium Chloride (Dextrose 5%/0.45% Ns 1000 Ml) 1,000 mls @ 75 mls/hr IV .[id number] [facility] Last Admin: 08/02/16 02:49 Dose: 75 mls/hr Insulin Human Regular (Novolin R) 0 unit SC Q6H [facility] PRN Reason: Protocol Last Admin: 08/02/16 06:10 Dose: 2 unit Latanoprost (Xalatan Opht) 0 ml OD HS [facility] Last Admin: 08/01/16 22:35 Dose: 1 ml Lisinopril (Zestril) 5 mg PO DAILY [facility] Last Admin: 08/01/16 10:20 Dose: Not Given Timolol Maleate (Timoptic 0.5% Ophth Soln) 0 drop OD DAILY [facility] Last Admin: 08/01/16 10:17 Dose: 1 drop - Labs Labs: 08/02/16 06:09 08/02/16 06:09 PT 11.2 SECONDS (9.7-12.2) 07/30/16 23:18 INR 1.0 07/30/16 23:18 APTT 29 SECONDS (21-34) 07/30/16 23:18
--- NOTE | 2016-08-02 10:59 | CT ---
PROCEDURE: CT HEAD WITHOUT CONTRAST. HISTORY: subdural COMPARISON: 07/30/2016. TECHNIQUE: Axial computed tomography images were obtained through the head/brain without intravenous contrast. Radiation dose: Total exam DLP = 416.42. MGy-cm. This CT exam was performed using one or more of the following dose reduction techniques: Automated exposure control, adjustment of the mA and/or kV according to patient size, and/or use of iterative reconstruction technique. FINDINGS: HEMORRHAGE: POSTOPERATIVE CHANGES FOLLOWING EVACUATION OF LARGE RIGHT EXTRA-AXIAL FLUID COLLECTION. BRAIN: POSTOPERATIVE EDEMA AT, MASS EFFECT NOTED. INTERVAL IMPROVEMENT IN MIDLINE SHIFT AND EFFACEMENT OF THE IPSILATERAL LATERAL VENTRICLE. No atrophy or chronic microvascular ischemic changes. VENTRICLES: Interval improvement in midline shift and compression upon the right lateral ventricle. Decompression, extends to improvement with respect to the temporal horn of the right lateral ventricle. CALVARIUM: POSTOPERATIVE FINDINGS RELATED TO RECENT CRANIOTOMY. SURGICAL DRAIN IDENTIFIED IN THE EXTRA-AXIAL SPACE, SURGICAL SITE. FLUID, DEBRIS AND AIR IN THE EXTRA-AXIAL SPACE ON THE RIGHT. PARANASAL SINUSES: Unremarkable as visualized. No significant inflammatory changes. MASTOID AIR CELLS: Unremarkable as visualized. No inflammatory changes. OTHER FINDINGS: None. IMPRESSION: Satisfactory postoperative status following craniotomy, evacuation of large extra-axial fluid collection on the right. Greater details are provided above. No new intra-axial abnormalities. Improved edema, mass effect. No evidence of acute infarction.
--- NOTE | 2016-08-02 11:19 | OP ---
PROCEDURE DATE: 08/01/2016 SURGEON: Dr. Ap Bolden. PREOPERATIVE DIAGNOSIS: Right chronic subdural hematoma. POSTOPERATIVE DIAGNOSIS: Right chronic subdural hematoma. OPERATIVE PROCEDURE: Bur hole evacuation of right subdural hematoma. DESCRIPTION OF PROCEDURE: The patient was brought to the operating room, intubated appropriately, he ad turned to the left. His head was prepped in the usual manner. A lazy S incision was marked out o elizabeth the frontal region. This was after draping, instilled with lidocaine with epinephrine and incise d sharply. The flap was retracted back with Gelpi retractors. Three bur holes were then placed, 2 a nteriorly, 1 posteriorly and the dura was elevated using a Ceres elevator. An attempt was made to connect these bur holes with a craniotome; however, the craniotome failed. The backup craniotome fa iled and it was chosen then to proceed by doing a bur hole evacuation. The dura was coagulated and i ncised over each bur hole and motor oil CSF hematoma was evacuated and sent for specimen. Copious am ounts of antibiotic irrigation were irrigated through the bur holes alternating in each one until all returns were clear. Then, a 10-Swedish red rubber catheter with extra side holes was placed through the posterior bur hole and we again irrigated through the catheter until again all returns were clear . At this point, the wound was then reapproximated with 2-0 Vicryl subgaleal and skin uriel. The drain was tacked in the usual manner. Sterile dressing was applied and the patient was then awoken f rom anesthesia, found to be moving all extremities, in preop condition. Blood loss was approximately 150. The patient was taken in stable hemodynamic condition to the recovery room. Specimen was subd ural fluid. Ap Bolden MD cc: 130 TT: 08/02/2016 11:17:59 ga
[2016-08-02] MEDS: levETIRAcetam 500 MG in Sodium Chloride 0.9% 100 ML IVPB SCH ×2 (11:45→23:54)
--- NOTE | 2016-08-02 16:27 | CP.CCUPN ---
<Keegan Aponte - Last Filed: 08/02/16 16:25> CCU Subjective - Physician Review Subjective (Free Text): 08/02/16 16:25 PGY-1 ICU progress note Pt seen and examined at bedside. No overnight events. No change in mental status. Has no complaints. Denies headaches, dizziness, numbness or tingling. Critical Care Time Spent (in minutes): 35 CCU Objective - Vital Signs / Intake & Output Vital Signs (Last 4 hours): Vital Signs Pulse Resp BP Pulse Ox 08/02/16 15:01 88 18 147/84 97 08/02/16 15:00 86 13 98 08/02/16 14:01 87 17 148/76 98 08/02/16 14:00 85 13 97 08/02/16 13:01 87 13 129/70 96 08/02/16 13:00 87 16 96 Intake and Output (Last 8hrs): Intake & Output 08/02/16 08/02/16 08/02/16 06:59 14:59 22:59 Intake Total 675 600 75 Output Total 485 280 30 Balance 190 320 45 Intake: Intake, IV Amount 675 600 75 Left Antecubital 675 600 75 Output: Drainage 20 Right Parietal 20 Urine 485 260 30 Urethral (Devlin) 485 260 30 Other: # Bowel Movements 0 0 - Physical Exam Head: Positive for: Other (bandages and drain in place and C/D/I) Pupils: Positive for: PERRL Extroacular Muscles: Positive for: EOMI Respiratory/Chest: Positive for: Clear to Auscultation, Good Air Exchange Cardiovascular: Positive for: Regular Rate and Rhythm, Normal S1, S2 Abdomen: Positive for: Normal Bowel Sounds. Negative for: Tenderness, Distention Upper Extremity: Positive for: NORMAL PULSES, Neurovascularly Intact Lower Extremity: Positive for: NORMAL PULSES, Neurovascularly Intact Neurological: Positive for: Speech Normal, Motor Func Grossly Intact Skin: Positive for: Warm, Dry Psychiatric: Positive for: Alert, Oriented x 3 - Medications Active Medications: Active Medications Generic Name Dose Route Start Last Admin Trade Name Freq PRN Reason Stop Dose Admin Artificial Tears 1 ml 07/31/16 05:15 08/02/16 10:22 Artificial Tears OD 1 drp Q4H [facility] Administration Famotidine 20 mg 07/31/16 10:00 08/02/16 10:23 Pepcid PO 20 mg DAILY [facility] Administration Levetiracetam 500 mg/ Sodium 105 mls @ 420 mls/hr 07/30/16 23:45 08/01/16 22: 51 Chloride IVPB 420 mls/hr Q12H [facility] Administration Dextrose/Sodium Chloride 1,000 mls @ 75 mls/hr 07/31/16 20:30 08/02/16 02:49 Dextrose 5%/0.45% Ns 1000 Ml IV 75 mls/hr .[id number] [facility] Administration Insulin Human Regular 0 unit 07/31/16 12:00 08/02/16 06:10 Novolin R SC 2 unit Q6H [facility] Administration Protocol Latanoprost 0 ml 07/31/16 22:00 08/01/16 22:35 Xalatan Opht OD 1 ml HS [facility] Administration Lisinopril 5 mg 07/31/16 10:00 08/02/16 10:23 Zestril PO 5 mg DAILY [facility] Administration Timolol Maleate 0 drop 07/31/16 11:15 08/02/16 10:23 Timoptic 0.5% Ophth Soln OD 1 drop DAILY [facility] Administration - Patient Studies Lab Studies: Lab Studies 08/02/16 08/02/16 08/02/16 Range/Units 12:00 06:09 06:09 WBC 9.6 D (4.8-10.8) K/uL RBC 4.43 (4.40-5.90) Mil/uL Hgb 11.8 L (12.0-18.0) g/dL Hct 35.8 (35.0-51.0) % MCV 80.9 D (80.0-94.0) fL MCH 26.6 L (27.0-31.0) pg MCHC 32.9 L (33.0-37.0) g/dL RDW 14.4 (11.5-14.5) % Plt Count 181 (130-400) K/uL MPV 8.8 (7.2-11.7) fL Neut % (Auto) 69.1 (50.0-75.0) % Lymph % (Auto) 20.9 (20.0-40.0) % Murray % (Auto) 8.2 (0.0-10.0) % Eos % (Auto) 1.4 (0.0-4.0) % Baso % (Auto) 0.4 (0.0-2.0) % Neut # 6.6 (1.8-7.0) K/uL Lymph # 2.0 (1.0-4.3) K/uL Murray # 0.8 (0.0-0.8) K/uL Eos # 0.1 (0.0-0.7) K/uL Baso # 0.0 (0.0-0.2) K/uL Sodium 135 (132-148) mmol/L Potassium 3.7 (3.6-5.2) mmol/L Chloride 101 (98-107) mmol/L Carbon Dioxide 22 (22-30) mmol/L Anion Gap 16 (10-20) BUN 7 L (9-20) mg/dL Creatinine 0.8 (0.8-1.5) MG/DL Est GFR ( Amer) > 60 Est GFR (Non-Af Amer) > 60 POC Glucose (mg/dL) 171 H (65-110) mg/dL Random Glucose 141 H (75-110) mg/dL Hemoglobin A1c (4.2-6.5) % Calcium 8.6 (8.6-10.4) mg/dl Phosphorus 4.1 (2.5-4.5) mg/dL Magnesium 1.8 (1.6-2.3) mg/dL Total Bilirubin 0.9 (0.2-1.3) mg/dL AST 21 (17-59) U/L ALT 23 (21-72) U/L Alkaline Phosphatase 68 (38-126) U/L Total Protein 6.7 (6.3-8.3) g/dL Albumin 3.9 (3.5-5.0) g/dL Globulin 2.8 (2.2-3.9) gm/dL Albumin/Globulin Ratio 1.4 (1.0-2.1) 08/02/16 08/02/16 08/01/16 Range/Units 06:05 00:57 18:03 WBC (4.8-10.8) K/uL RBC (4.40-5.90) Mil/uL Hgb (12.0-18.0) g/dL Hct (35.0-51.0) % MCV (80.0-94.0) fL MCH (27.0-31.0) pg MCHC (33.0-37.0) g/dL RDW (11.5-14.5) % Plt Count (130-400) K/uL MPV (7.2-11.7) fL Neut % (Auto) (50.0-75.0) % Lymph % (Auto) (20.0-40.0) % Murray % (Auto) (0.0-10.0) % Eos % (Auto) (0.0-4.0) % Baso % (Auto) (0.0-2.0) % Neut # (1.8-7.0) K/uL Lymph # (1.0-4.3) K/uL Murray # (0.0-0.8) K/uL Eos # (0.0-0.7) K/uL Baso # (0.0-0.2) K/uL Sodium (132-148) mmol/L Potassium (3.6-5.2) mmol/L Chloride (98-107) mmol/L Carbon Dioxide (22-30) mmol/L Anion Gap (10-20) BUN (9-20) mg/dL Creatinine (0.8-1.5) MG/DL Est GFR ( Amer) Est GFR (Non-Af Amer) POC Glucose (mg/dL) 152 H 156 H 134 H (65-110) mg/dL Random Glucose (75-110) mg/dL Hemoglobin A1c (4.2-6.5) % Calcium (8.6-10.4) mg/dl Phosphorus (2.5-4.5) mg/dL Magnesium (1.6-2.3) mg/dL Total Bilirubin (0.2-1.3) mg/dL AST (17-59) U/L ALT (21-72) U/L Alkaline Phosphatase (38-126) U/L Total Protein (6.3-8.3) g/dL Albumin (3.5-5.0) g/dL Globulin (2.2-3.9) gm/dL Albumin/Globulin Ratio (1.0-2.1) 08/01/16 08/01/16 Range/Units 16:31 16:31 WBC (4.8-10.8) K/uL RBC (4.40-5.90) Mil/uL Hgb (12.0-18.0) g/dL Hct (35.0-51.0) % MCV (80.0-94.0) fL MCH (27.0-31.0) pg MCHC (33.0-37.0) g/dL RDW (11.5-14.5) % Plt Count (130-400) K/uL MPV (7.2-11.7) fL Neut % (Auto) (50.0-75.0) % Lymph % (Auto) (20.0-40.0) % Murray % (Auto) (0.0-10.0) % Eos % (Auto) (0.0-4.0) % Baso % (Auto) (0.0-2.0) % Neut # (1.8-7.0) K/uL Lymph # (1.0-4.3) K/uL Murray # (0.0-0.8) K/uL Eos # (0.0-0.7) K/uL Baso # (0.0-0.2) K/uL Sodium 134 (132-148) mmol/L Potassium 4.2 (3.6-5.2) mmol/L Chloride 103 (98-107) mmol/L Carbon Dioxide 18 L (22-30) mmol/L Anion Gap 17 (10-20) BUN 8 L (9-20) mg/dL Creatinine 0.8 (0.8-1.5) MG/DL Est GFR ( Amer) > 60 Est GFR (Non-Af Amer) > 60 POC Glucose (mg/dL) (65-110) mg/dL Random Glucose 126 H (75-110) mg/dL Hemoglobin A1c 5.9 (4.2-6.5) % Calcium 8.7 (8.6-10.4) mg/dl Phosphorus (2.5-4.5) mg/dL Magnesium 2.0 (1.6-2.3) mg/dL Total Bilirubin (0.2-1.3) mg/dL AST (17-59) U/L ALT (21-72) U/L Alkaline Phosphatase (38-126) U/L Total Protein (6.3-8.3) g/dL Albumin (3.5-5.0) g/dL Globulin (2.2-3.9) gm/dL Albumin/Globulin Ratio (1.0-2.1) Laboratory Results - last 24 hr 08/01/16 08/01/16 08/01/16 16:31 16:31 18:03 WBC RBC Hgb Hct MCV MCH MCHC RDW Plt Count MPV Neut % (Auto) Lymph % (Auto) Murray % (Auto) Eos % (Auto) Baso % (Auto) Neut # Lymph # Murray # Eos # Baso # Sodium 134 Potassium 4.2 Chloride 103 Carbon Dioxide 18 L Anion Gap 17 BUN 8 L Creatinine 0.8 Est GFR ( Amer) > 60 Est GFR (Non-Af Amer) > 60 POC Glucose (mg/dL) 134 H Random Glucose 126 H Hemoglobin A1c 5.9 Calcium 8.7 Phosphorus Magnesium 2.0 Total Bilirubin AST ALT Alkaline Phosphatase Total Protein Albumin Globulin Albumin/Globulin Ratio 08/02/16 08/02/16 08/02/16 00:57 06:05 06:09 WBC 9.6 D RBC 4.43 Hgb 11.8 L Hct 35.8 MCV 80.9 D MCH 26.6 L MCHC 32.9 L RDW 14.4 Plt Count 181 MPV 8.8 Neut % (Auto) 69.1 Lymph % (Auto) 20.9 Murray % (Auto) 8.2 Eos % (Auto) 1.4 Baso % (Auto) 0.4 Neut # 6.6 Lymph # 2.0 Murray # 0.8 Eos # 0.1 Baso # 0.0 Sodium Potassium Chloride Carbon Dioxide Anion Gap BUN Creatinine Est GFR ( Amer) Est GFR (Non-Af Amer) POC Glucose (mg/dL) 156 H 152 H Random Glucose Hemoglobin A1c Calcium Phosphorus Magnesium Total Bilirubin AST ALT Alkaline Phosphatase Total Protein Albumin Globulin Albumin/Globulin Ratio 08/02/16 08/02/16 06:09 12:00 WBC RBC Hgb Hct MCV MCH MCHC RDW Plt Count MPV Neut % (Auto) Lymph % (Auto) Murray % (Auto) Eos % (Auto) Baso % (Auto) Neut # Lymph # Murray # Eos # Baso # Sodium 135 Potassium 3.7 Chloride 101 Carbon Dioxide 22 Anion Gap 16 BUN 7 L Creatinine 0.8 Est GFR ( Amer) > 60 Est GFR (Non-Af Amer) > 60 POC Glucose (mg/dL) 171 H Random Glucose 141 H Hemoglobin A1c Calcium 8.6 Phosphorus 4.1 Magnesium 1.8 Total Bilirubin 0.9 AST 21 ALT 23 Alkaline Phosphatase 68 Total Protein 6.7 Albumin 3.9 Globulin 2.8 Albumin/Globulin Ratio 1.4 Fingerstick Blood Sugar Results: 171 Review of Systems - Review of Systems All systems: reviewed and no additional remarkable complaints except (where noted in HPI) Critical Care Progress Note - Nutrition Nutrition: Nutrition Category Date Time Status Heart Healthy Diet [DIET] Diets 08/02/16 Breakfast Active Assessment/Plan - Assessment and Plan (Free Text) Assessment: This is a 75 yo M s/p right sided naomy hole evacuation of subdural hematoma, POD #1 Plan: Neuro: AAOx3 Keppra for seizure ppx Repeat CT - Satisfactory postoperative status following craniotomy, evacuation of large extra-axial fluid collection on the right. Greater details are provided above. No new intra-axial abnormalities. Improved edema, mass effect. No evidence of acute infarction. Drain to stay in till tomorrow per neurosurg Continue to monitor for any changes in mental status Cardiovascular: Hemodynamically stable Continue lisinopril Pulmonary: Saturating well in no respiratory distress Monitor O2 sats Gastrointestinal: Heart healthy diet No acute issues Hematology: No issues, monitor H/H Endocrine: No acute issues Renal: Cont IVF Monitor electrolytes and replete as needed Strict I/O Infectious Disease: Afebrile, no leukocytosis GI Prophylaxis: Pepcid DVT Prophylaxis: Not indicated at this time due to brain bleed <Murphy Dimas - Last Filed: 08/02/16 17:56> CCU Objective - Vital Signs / Intake & Output Vital Signs (Last 4 hours): Vital Signs Pulse Resp BP Pulse Ox 08/02/16 15:01 88 18 147/84 97 08/02/16 15:00 86 13 98 08/02/16 14:01 87 17 148/76 98 08/02/16 14:00 85 13 97 Intake and Output (Last 8hrs): Intake & Output 08/02/16 08/02/16 08/02/16 06:59 14:59 22:59 Intake Total 675 600 75 Output Total 485 280 30 Balance 190 320 45 Intake: Intake, IV Amount 675 600 75 Left Antecubital 675 600 75 Output: Drainage 20 Right Parietal 20 Urine 485 260 30 Urethral (Devlin) 485 260 30 Other: # Bowel Movements 0 0 - Medications Active Medications: Active Medications Generic Name Dose Route Start Last Admin Trade Name Freq PRN Reason Stop Dose Admin Artificial Tears 1 ml 07/31/16 05:15 08/02/16 17:23 Artificial Tears OD 1 drp Q4H [facility] Administration Famotidine 20 mg 07/31/16 10:00 08/02/16 10:23 Pepcid PO 20 mg DAILY [facility] Administration Levetiracetam 500 mg/ Sodium 105 mls @ 420 mls/hr 07/30/16 23:45 08/02/16 11: 45 Chloride IVPB 420 mls/hr Q12H [facility] Administration Dextrose/Sodium Chloride 1,000 mls @ 75 mls/hr 07/31/16 20:30 08/02/16 12:00 Dextrose 5%/0.45% Ns 1000 Ml IV 75 mls/hr .[id number] [facility] Administration Insulin Human Regular 0 unit 07/31/16 12:00 08/02/16 12:00 Novolin R SC Not Given Q6H [facility] Protocol Latanoprost 0 ml 07/31/16 22:00 08/01/16 22:35 Xalatan Opht OD 1 ml HS [facility] Administration Lisinopril 5 mg 07/31/16 10:00 08/02/16 10:23 Zestril PO 5 mg DAILY [facility] Administration Timolol Maleate 0 drop 07/31/16 11:15 08/02/16 10:23 Timoptic 0.5% Ophth Soln OD 1 drop DAILY [facility] Administration - Patient Studies Lab Studies: Lab Studies 08/02/16 08/02/16 08/02/16 Range/Units 12:00 06:09 06:09 WBC 9.6 D (4.8-10.8) K/uL RBC 4.43 (4.40-5.90) Mil/uL Hgb 11.8 L (12.0-18.0) g/dL Hct 35.8 (35.0-51.0) % MCV 80.9 D (80.0-94.0) fL MCH 26.6 L (27.0-31.0) pg MCHC 32.9 L (33.0-37.0) g/dL RDW 14.4 (11.5-14.5) % Plt Count 181 (130-400) K/uL MPV 8.8 (7.2-11.7) fL Neut % (Auto) 69.1 (50.0-75.0) % Lymph % (Auto) 20.9 (20.0-40.0) % Murray % (Auto) 8.2 (0.0-10.0) % Eos % (Auto) 1.4 (0.0-4.0) % Baso % (Auto) 0.4 (0.0-2.0) % Neut # 6.6 (1.8-7.0) K/uL Lymph # 2.0 (1.0-4.3) K/uL Murray # 0.8 (0.0-0.8) K/uL Eos # 0.1 (0.0-0.7) K/uL Baso # 0.0 (0.0-0.2) K/uL Sodium 135 (132-148) mmol/L Potassium 3.7 (3.6-5.2) mmol/L Chloride 101 (98-107) mmol/L Carbon Dioxide 22 (22-30) mmol/L Anion Gap 16 (10-20) BUN 7 L (9-20) mg/dL Creatinine 0.8 (0.8-1.5) MG/DL Est GFR ( Amer) > 60 Est GFR (Non-Af Amer) > 60 POC Glucose (mg/dL) 171 H (65-110) mg/dL Random Glucose 141 H (75-110) mg/dL Calcium 8.6 (8.6-10.4) mg/dl Phosphorus 4.1 (2.5-4.5) mg/dL Magnesium 1.8 (1.6-2.3) mg/dL Total Bilirubin 0.9 (0.2-1.3) mg/dL AST 21 (17-59) U/L ALT 23 (21-72) U/L Alkaline Phosphatase 68 (38-126) U/L Total Protein 6.7 (6.3-8.3) g/dL Albumin 3.9 (3.5-5.0) g/dL Globulin 2.8 (2.2-3.9) gm/dL Albumin/Globulin Ratio 1.4 (1.0-2.1) 08/02/16 08/02/16 08/01/16 Range/Units 06:05 00:57 18:03 WBC (4.8-10.8) K/uL RBC (4.40-5.90) Mil/uL Hgb (12.0-18.0) g/dL Hct (35.0-51.0) % MCV (80.0-94.0) fL MCH (27.0-31.0) pg MCHC (33.0-37.0) g/dL RDW (11.5-14.5) % Plt Count (130-400) K/uL MPV (7.2-11.7) fL Neut % (Auto) (50.0-75.0) % Lymph % (Auto) (20.0-40.0) % Murray % (Auto) (0.0-10.0) % Eos % (Auto) (0.0-4.0) % Baso % (Auto) (0.0-2.0) % Neut # (1.8-7.0) K/uL Lymph # (1.0-4.3) K/uL Murray # (0.0-0.8) K/uL Eos # (0.0-0.7) K/uL Baso # (0.0-0.2) K/uL Sodium (132-148) mmol/L Potassium (3.6-5.2) mmol/L Chloride (98-107) mmol/L Carbon Dioxide (22-30) mmol/L Anion Gap (10-20) BUN (9-20) mg/dL Creatinine (0.8-1.5) MG/DL Est GFR ( Amer) Est GFR (Non-Af Amer) POC Glucose (mg/dL) 152 H 156 H 134 H (65-110) mg/dL Random Glucose (75-110) mg/dL Calcium (8.6-10.4) mg/dl Phosphorus (2.5-4.5) mg/dL Magnesium (1.6-2.3) mg/dL Total Bilirubin (0.2-1.3) mg/dL AST (17-59) U/L ALT (21-72) U/L Alkaline Phosphatase (38-126) U/L Total Protein (6.3-8.3) g/dL Albumin (3.5-5.0) g/dL Globulin (2.2-3.9) gm/dL Albumin/Globulin Ratio (1.0-2.1) Laboratory Results - last 24 hr 08/01/16 08/02/16 08/02/16 18:03 00:57 06:05 WBC RBC Hgb Hct MCV MCH MCHC RDW Plt Count MPV Neut % (Auto) Lymph % (Auto) Murray % (Auto) Eos % (Auto) Baso % (Auto) Neut # Lymph # Murray # Eos # Baso # Sodium Potassium Chloride Carbon Dioxide Anion Gap BUN Creatinine Est GFR ( Amer) Est GFR (Non-Af Amer) POC Glucose (mg/dL) 134 H 156 H 152 H Random Glucose Calcium Phosphorus Magnesium Total Bilirubin AST ALT Alkaline Phosphatase Total Protein Albumin Globulin Albumin/Globulin Ratio 08/02/16 08/02/16 08/02/16 06:09 06:09 12:00 WBC 9.6 D RBC 4.43 Hgb 11.8 L Hct 35.8 MCV 80.9 D MCH 26.6 L MCHC 32.9 L RDW 14.4 Plt Count 181 MPV 8.8 Neut % (Auto) 69.1 Lymph % (Auto) 20.9 Murray % (Auto) 8.2 Eos % (Auto) 1.4 Baso % (Auto) 0.4 Neut # 6.6 Lymph # 2.0 Murray # 0.8 Eos # 0.1 Baso # 0.0 Sodium 135 Potassium 3.7 Chloride 101 Carbon Dioxide 22 Anion Gap 16 BUN 7 L Creatinine 0.8 Est GFR ( Amer) > 60 Est GFR (Non-Af Amer) > 60 POC Glucose (mg/dL) 171 H Random Glucose 141 H Calcium 8.6 Phosphorus 4.1 Magnesium 1.8 Total Bilirubin 0.9 AST 21 ALT 23 Alkaline Phosphatase 68 Total Protein 6.7 Albumin 3.9 Globulin 2.8 Albumin/Globulin Ratio 1.4 Critical Care Progress Note - Nutrition Nutrition: Nutrition Category Date Time Status Heart Healthy Diet [DIET] Diets 08/02/16 Breakfast Active Attending/Attestation - Attestation I have personally seen and examined this patient.: Yes I have fully participated in the care of the patient.: Yes I have reviewed all pertinent clinical information: Yes Notes (Text): 08/02/16 17:56 Today: July The Patient was seen and examined at the bedside, Medical records reviewed, all clinical/lab/hemodynamic/radiographic data were reviewed and management issues were discussed and formulated, Events reviewed Pain issues, skin care, head of the bed elevation, glycemic control were addressed. Agree with above treatment plans as transcribed in Dr. Fadi hoffmann
--- NOTE | 2016-08-02 18:05 | CP.PCM.PN ---
Subjective - Date & Time of Evaluation Date of Evaluation: 08/02/16 Time of Evaluation: 18:00 - Subjective Subjective: Medical Attending Note Follow-up: Subdural Hemorrhage s/p [place] and evacuation POD 1, Hypertension, Diabetes type 2, Constipation Patient seen and examined at bedside. Patient's [place] language is Welsh. At bedside, two family members at bedside. Patient denies headache, denies dizziness, denies chest pain, denies shortness of breathe, denies abdominal pain, denies nausea, denies vomitting. Per discussion with nursing, patient seen by neurosurgery today, possible removal of drain tomorrow. Patient is alert, awake, oriented X3, no acute distress. Objective - Vital Signs/Intake and Output Vital Signs (last 24 hours): Temp Pulse Resp BP Pulse Ox 98.4 F 88 18 147/84 97 08/02/16 08:00 08/02/16 15:01 08/02/16 15:01 08/02/16 15:01 08/02/16 15:01 Intake and Output: 08/02/16 08/02/16 06:59 18:59 Intake Total 1025 675 Output Total 690 310 Balance 335 365 - Medications Medications: Current Medications Artificial Tears (Artificial Tears) 1 ml OD Q4H [facility] Last Admin: 08/02/16 17:23 Dose: 1 drp Famotidine (Pepcid) 20 mg PO DAILY [facility] Last Admin: 08/02/16 10:23 Dose: 20 mg Levetiracetam 500 mg/ Sodium (Chloride) 105 mls @ 420 mls/hr IVPB Q12H [facility] Last Admin: 08/02/16 11:45 Dose: 420 mls/hr Dextrose/Sodium Chloride (Dextrose 5%/0.45% Ns 1000 Ml) 1,000 mls @ 75 mls/hr IV .[id number] [facility] Last Admin: 08/02/16 12:00 Dose: 75 mls/hr Insulin Human Regular (Novolin R) 0 unit SC Q6H [facility] PRN Reason: Protocol Last Admin: 08/02/16 12:00 Dose: Not Given Latanoprost (Xalatan Opht) 0 ml OD HS [facility] Last Admin: 08/01/16 22:35 Dose: 1 ml Lisinopril (Zestril) 5 mg PO DAILY [facility] Last Admin: 08/02/16 10:23 Dose: 5 mg Timolol Maleate (Timoptic 0.5% Ophth Soln) 0 drop OD DAILY [facility] Last Admin: 08/02/16 10:23 Dose: 1 drop - Labs Labs: 08/02/16 06:09 08/02/16 06:09 PT 11.2 SECONDS (9.7-12.2) 07/30/16 23:18 INR 1.0 07/30/16 23:18 APTT 29 SECONDS (21-34) 07/30/16 23:18 - Constitutional Appears: Non-toxic, No Acute Distress - Head Exam Additional comments: Dressing over surgical site: clean/dry/intact, drain in place - ENT Exam ENT Exam: Mucous Membranes Moist - Respiratory Exam Respiratory Exam: Clear to Ausculation Bilateral, NORMAL BREATHING PATTERN. absent: Rales, Rhonchi, Wheezes - Cardiovascular Exam Cardiovascular Exam: RRR, +S1, +S2 - GI/Abdominal Exam GI & Abdominal Exam: Soft, Normal Bowel Sounds. absent: Distended, Firm, Guarding, Rigid, Tenderness, Rebound - Extremities Exam Extremities Exam: absent: Pedal Edema, Tenderness - Neurological Exam Neurological Exam: Alert, Awake, CN II-XII Intact, Oriented x3 Neuro motor strength exam: Left Upper Extremity: 5, Right Upper Extremity: 5, Left Lower Extremity: 5, Right Lower Extremity: 5 - Psychiatric Exam Psychiatric exam: Normal Affect, Normal Mood - Skin Skin Exam: Dry, Normal Color, Warm Assessment and Plan (1) Cerebral hemorrhage Status: Acute (2) Hypertension Status: Chronic (3) Diabetes Status: Chronic (4) Constipation Status: Chronic (5) Prophylactic measure Status: Acute - Assessment and Plan (Free Text) Assessment: (1) Cerebral hemorrhage Assessment & Plan: * Neurosurgery: Dr. Bolden on board-->help appreciated * Neurology: Dr Bonner on board-->help appreciated * Head CT (07/30/16): CT Head without contrast: 1. The left orbit appears to be rotated 90 degrees to the right while the right orbit appears to be oriented normally. 2. 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 This results in severe mass effect on the underlying brain, including 1.4 cm of leftward midline shift and compression of the right lateral ventricle. Asymmetric enlargement of the right temporal horn suggestive of early entrapment. * Head CT (08/02/16): satisfactory postoperative status following craniotomy, evacuation of large extra-axial fluid collection on the right. No new intra- axial abnormalities. Improved edema, mass effect. No evidence of acute infarction. * Keppra 500mg IVPB Q 12hours for seizure prophylaxis * POD 1: s/p [place] hole and evacuation of subdural hemorrhage with [place] and Advid drain * Post-surgical management per neurosurgery Status: Acute (2) Hypertension Assessment & Plan: Lisinopril 5mg PO daily Status: Chronic (3) Diabetes Assessment & Plan: [id number]: 5.9 Controlled Accuchecks Q6 hours Regular insulin sliding scale subq Q 6hours Status: Chronic (4) Constipation Status: Chronic (5) Prophylactic measure Assessment & Plan: Contraindication secondary to subdural hemorrhage Pepcid 20mg PO daily Status: Acute
--- NOTE | 2016-08-02 18:44 | CP.PCM.PN ---
Subjective - Date & Time of Evaluation Date of Evaluation: 08/02/16 Time of Evaluation: 14:00 - Subjective Subjective: Mr. Renee Lopez was seen and examined today at bedside in the ICU. He was pleasant and conversant and had no complaints. There were no acute events overnight. He underwent CT scan of the head this morning. I discussed the findings with him and his . Their questions were answered. Objective - Vital Signs/Intake and Output Vital Signs (last 24 hours): Temp Pulse Resp BP Pulse Ox 98.4 F 88 18 147/84 97 08/02/16 08:00 08/02/16 15:01 08/02/16 15:01 08/02/16 15:01 08/02/16 15:01 Intake and Output: 08/02/16 08/02/16 06:59 18:59 Intake Total 1025 675 Output Total 690 310 Balance 335 365 - Medications Medications: Current Medications Artificial Tears (Artificial Tears) 1 ml OD Q4H [facility] Last Admin: 08/02/16 17:23 Dose: 1 drp Famotidine (Pepcid) 20 mg PO DAILY [facility] Last Admin: 08/02/16 10:23 Dose: 20 mg Levetiracetam 500 mg/ Sodium (Chloride) 105 mls @ 420 mls/hr IVPB Q12H [facility] Last Admin: 08/02/16 11:45 Dose: 420 mls/hr Dextrose/Sodium Chloride (Dextrose 5%/0.45% Ns 1000 Ml) 1,000 mls @ 75 mls/hr IV .[id number] [facility] Last Admin: 08/02/16 12:00 Dose: 75 mls/hr Insulin Human Regular (Novolin R) 0 unit SC Q6H [facility] PRN Reason: Protocol Last Admin: 08/02/16 12:00 Dose: Not Given Latanoprost (Xalatan Opht) 0 ml OD HS [facility] Last Admin: 08/01/16 22:35 Dose: 1 ml Lisinopril (Zestril) 5 mg PO DAILY [facility] Last Admin: 08/02/16 10:23 Dose: 5 mg Timolol Maleate (Timoptic 0.5% Ophth Soln) 0 drop OD DAILY [facility] Last Admin: 08/02/16 10:23 Dose: 1 drop - Labs Labs: 08/02/16 06:09 08/02/16 06:09 PT 11.2 SECONDS (9.7-12.2) 07/30/16 23:18 INR 1.0 07/30/16 23:18 APTT 29 SECONDS (21-34) 07/30/16 23:18 - Neurological Exam Neurological Exam: Awake, CN II-XII Intact, Oriented x3, Reflexes Normal Neuro motor strength exam: Left Upper Extremity: 4, Right Upper Extremity: 5, Left Lower Extremity: 4, Right Lower Extremity: 5 Assessment and Plan (1) Subdural hemorrhage following injury Assessment & Plan: Continue Keppra at current dose. PT/OT. DVT Px. A repeat CT scan can be obtained per neurosurgery. Status: Acute
[2016-08-02] MEDS: Latanoprost 2.5 ml Opht Soln OD SCH (21:53)
[2016-08-03] MEDS: (Novolin R) Insulin Human Regular 100 units/ml vial SC SCH ×5 (00:07→23:49)
[2016-08-03] MEDS: Dextrose 5%/0.45% NS 1,000 ML IV SCH ×2 (01:17→10:35)
[2016-08-03] MEDS: Aritificial Tears (15ml) OD SCH ×6 (01:17→21:35)
[2016-08-03 06:30] LABS: BASO % 0.5 % (0.0-2.0); EOS # 0.2 K/uL (0.0-0.7); EOS % 1.8 % (0.0-4.0); HEMATOCRIT 34.4 % (35.0-51.0); LYMPH # 2.3 K/uL (1.0-4.3); MEAN CELL VOLUME 80.4 fL (80.0-94.0); MEAN CORPUSCULAR HEMOGLOBIN 27.2 pg (27.0-31.0); MEAN CORPUSCULAR HGB CONC 33.8 g/dL (33.0-37.0); MEAN PLATELET VOLUME 8.8 fL (7.2-11.7); MONO # 0.9 K/uL (0.0-0.8); MONO % 9.9 % (0.0-10.0); RED CELL DISTRIBUTION WIDTH 14.4 % (11.5-14.5); WHITE BLOOD COUNT 9.3 K/uL (4.8-10.8)
[2016-08-03 06:48] LABS: CHLORIDE 98 mmol/L (98-107); POTASSIUM 3.6 mmol/L (3.6-5.2); SODIUM 132 mmol/L (132-148)
[2016-08-03 06:50] LABS: ALB/GLOB RATIO 1.4 (1.0-2.1); AST/SGOT 21 U/L (17-59); BILIRUBIN,TOTAL 0.9 mg/dL (0.2-1.3); CARBON DIOXIDE 23 mmol/L (22-30); GFR AFRICAN-AMERICAN > 60; TOTAL PROTEIN 6.2 g/dL (6.3-8.3)
[2016-08-03 06:51] LABS: ALKALINE PHOSPHATASE 73 U/L (38-126); ALT/SGPT 31 U/L (21-72); BLOOD UREA NITROGEN 6 mg/dL (9-20); CALCIUM 8.1 mg/dl (8.6-10.4); GLUCOSE,RANDOM 128 mg/dL (75-110); MAGNESIUM 1.9 mg/dL (1.6-2.3); PHOSPHOROUS 3.3 mg/dL (2.5-4.5)
[2016-08-03] MEDS: levETIRAcetam 500 MG in Sodium Chloride 0.9% 100 ML IVPB SCH ×2 (11:45→23:32)
[2016-08-03] MEDS: Sodium Chloride 0.9% 1,000 ML IV SCH (11:45)
[2016-08-03] MEDS ORDERED: Bacitracin 500 Units/gm Oint Foilpak UD TOP ONE (12:30)
--- NOTE | 2016-08-03 12:45 | CP.PCM.PN ---
Subjective - Date & Time of Evaluation Date of Evaluation: 08/03/16 Time of Evaluation: 12:43 - Subjective Subjective: confused nonfocal CT SHOWED GOOD RESOLUTION sdh SD drain removed P trans to floor OOB PT/OT will follow intermittently Objective - Vital Signs/Intake and Output Vital Signs (last 24 hours): Temp Pulse Resp BP Pulse Ox 98.8 F 83 12 146/76 96 08/03/16 04:00 08/03/16 07:01 08/03/16 07:01 08/03/16 07:01 08/03/16 07:01 Intake and Output: 08/03/16 08/03/16 06:59 18:59 Intake Total 950 150 Output Total 735 200 Balance 215 -50 - Medications Medications: Current Medications Artificial Tears (Artificial Tears) 1 ml OD Q4H [facility] Last Admin: 08/03/16 10:33 Dose: 1 drp Famotidine (Pepcid) 20 mg PO DAILY [facility] Last Admin: 08/03/16 10:40 Dose: Not Given Heparin Sodium (Porcine) (Heparin) 5,000 units SC Q8 [facility] Levetiracetam 500 mg/ Sodium (Chloride) 105 mls @ 420 mls/hr IVPB Q12H [facility] Last Admin: 08/02/16 23:54 Dose: 420 mls/hr Sodium Chloride (Sodium Chloride 0.9%) 1,000 mls @ 75 mls/hr IV .[id number] [facility] Insulin Human Regular (Novolin R) 0 unit SC Q6H [facility] PRN Reason: Protocol Last Admin: 08/03/16 06:08 Dose: Not Given Latanoprost (Xalatan Opht) 0 ml OD HS [facility] Last Admin: 08/02/16 21:53 Dose: 1 ml Lisinopril (Zestril) 5 mg PO DAILY [facility] Last Admin: 08/03/16 10:42 Dose: Not Given Sodium Chloride (Sodium Chloride Tab) 2 gm PO Q8H [facility] Timolol Maleate (Timoptic 0.5% Ophth Soln) 0 drop OD DAILY [facility] Last Admin: 08/03/16 10:34 Dose: 1 drop - Labs Labs: 08/03/16 06:22 08/03/16 06:22 PT 11.2 SECONDS (9.7-12.2) 07/30/16 23:18 INR 1.0 07/30/16 23:18 APTT 29 SECONDS (21-34) 07/30/16 23:18
--- NOTE | 2016-08-03 13:00 | CP.PCM.PN ---
Subjective - Date & Time of Evaluation Date of Evaluation: 08/03/16 Time of Evaluation: 12:55 - Subjective Subjective: Mr. Renee Lopez was seen and examined today at bedside in the ICU. His family was present and had some questions regarding the current status and prognosis. According to nursing, the patient has been more confused and less rational than yesterday. This seems to have started last night. He was given a dose of Xanax. Today, he continued to be delirious. Objective - Vital Signs/Intake and Output Vital Signs (last 24 hours): Temp Pulse Resp BP Pulse Ox 98.8 F 83 12 146/76 96 08/03/16 04:00 08/03/16 07:01 08/03/16 07:01 08/03/16 07:01 08/03/16 07:01 Intake and Output: 08/03/16 08/03/16 06:59 18:59 Intake Total 950 150 Output Total 735 200 Balance 215 -50 - Medications Medications: Current Medications Artificial Tears (Artificial Tears) 1 ml OD Q4H [facility] Last Admin: 08/03/16 10:33 Dose: 1 drp Famotidine (Pepcid) 20 mg PO DAILY [facility] Last Admin: 08/03/16 10:40 Dose: Not Given Heparin Sodium (Porcine) (Heparin) 5,000 units SC Q8 [facility] Levetiracetam 500 mg/ Sodium (Chloride) 105 mls @ 420 mls/hr IVPB Q12H [facility] Last Admin: 08/02/16 23:54 Dose: 420 mls/hr Sodium Chloride (Sodium Chloride 0.9%) 1,000 mls @ 75 mls/hr IV .[id number] [facility] Insulin Human Regular (Novolin R) 0 unit SC Q6H [facility] PRN Reason: Protocol Last Admin: 08/03/16 06:08 Dose: Not Given Latanoprost (Xalatan Opht) 0 ml OD HS [facility] Last Admin: 08/02/16 21:53 Dose: 1 ml Lisinopril (Zestril) 5 mg PO DAILY [facility] Last Admin: 08/03/16 10:42 Dose: Not Given Sodium Chloride (Sodium Chloride Tab) 2 gm PO Q8H [facility] Timolol Maleate (Timoptic 0.5% Ophth Soln) 0 drop OD DAILY [facility] Last Admin: 08/03/16 10:34 Dose: 1 drop - Labs Labs: 08/03/16 06:22 08/03/16 06:22 PT 11.2 SECONDS (9.7-12.2) 07/30/16 23:18 INR 1.0 07/30/16 23:18 APTT 29 SECONDS (21-34) 07/30/16 23:18 - Constitutional Appears: Confused - Head Exam Additional comments: Drain was removed, incision site is C/D/I - Eye Exam Eye Exam: EOMI, Normal appearance, PERRL - Respiratory Exam Respiratory Exam: Clear to Ausculation Bilateral, NORMAL BREATHING PATTERN - Cardiovascular Exam Cardiovascular Exam: REGULAR RHYTHM, +S1, +S2. absent: Murmur - GI/Abdominal Exam GI & Abdominal Exam: Soft, Normal Bowel Sounds. absent: Tenderness - Neurological Exam Neurological Exam: Abnormal Gait, Altered, CN II-XII Intact Neuro motor strength exam: Left Upper Extremity: 4, Right Upper Extremity: 5, Left Lower Extremity: 4, Right Lower Extremity: 5 Assessment and Plan (1) Subdural hemorrhage following injury Assessment & Plan: The patient is likely having episodes of ICU delirium. I recommend a small dose of Seroquel (25 mg), for any agitation. Avoid benzos. Continue PT/OT plan. Maintain serum sodium above 135. Continue seizure prophylaxis. Status: Acute
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
--- NOTE | 2016-08-03 15:18 | CP.CCUPN ---
<Keegan Aponte - Last Filed: 08/03/16 15:13> CCU Subjective - Physician Review Subjective (Free Text): 08/03/16 15:13 PGY-1 ICU progress note Pt seen and examined at bedside. Pt given Xanax last night to help with sleep/ anxiety. Pt confused this morning. Critical Care Time Spent (in minutes): 35 CCU Objective - Vital Signs / Intake & Output Vital Signs (Last 4 hours): Vital Signs Pulse Resp BP Pulse Ox 08/03/16 14:01 80 14 133/101 H 97 08/03/16 14:00 81 19 97 08/03/16 13:01 85 18 147/86 95 08/03/16 13:00 84 21 95 08/03/16 12:01 85 16 137/79 96 08/03/16 12:00 85 20 96 Intake and Output (Last 8hrs): Intake & Output 08/03/16 08/03/16 08/03/16 06:59 14:59 22:59 Intake Total 600 600 Output Total 550 595 Balance 50 5 Intake: Intake, IV Amount 600 600 Left Antecubital 600 600 Output: Urine 550 595 Urethral (Devlin) 550 595 Other: # Bowel Movements 0 - Physical Exam Head: Positive for: Other (bandages in place and C/D/I) Pupils: Positive for: PERRL Extroacular Muscles: Positive for: EOMI Respiratory/Chest: Positive for: Clear to Auscultation, Good Air Exchange Cardiovascular: Positive for: Regular Rate and Rhythm, Normal S1, S2 Abdomen: Positive for: Normal Bowel Sounds. Negative for: Tenderness, Distention Upper Extremity: Positive for: NORMAL PULSES, Neurovascularly Intact Lower Extremity: Positive for: NORMAL PULSES, Neurovascularly Intact Neurological: Positive for: Motor Func Grossly Intact Skin: Positive for: Warm, Dry Psychiatric: Positive for: Alert, Oriented x 3 - Medications Active Medications: Active Medications Generic Name Dose Route Start Last Admin Trade Name Freq PRN Reason Stop Dose Admin Artificial Tears 1 ml 07/31/16 05:15 08/03/16 13:15 Artificial Tears OD 1 drp Q4H [facility] Administration Famotidine 20 mg 07/31/16 10:00 08/03/16 10:40 Pepcid PO Not Given DAILY [facility] Heparin Sodium (Porcine) 5,000 units 08/03/16 14:00 08/03/16 15:04 Heparin SC 5,000 units Q8 [facility] Administration Levetiracetam 500 mg/ Sodium 105 mls @ 420 mls/hr 07/30/16 23:45 08/03/16 11: 45 Chloride IVPB 420 mls/hr Q12H [facility] Administration Sodium Chloride 1,000 mls @ 75 mls/hr 08/03/16 11:45 08/03/16 11:45 Sodium Chloride 0.9% IV 75 mls/hr .[id number] [facility] Administration Insulin Human Regular 0 unit 07/31/16 12:00 08/03/16 12:00 Novolin R SC Not Given Q6H [facility] Protocol Latanoprost 0 ml 07/31/16 22:00 08/02/16 21:53 Xalatan Opht OD 1 ml HS [facility] Administration Lisinopril 5 mg 07/31/16 10:00 08/03/16 10:42 Zestril PO Not Given DAILY [facility] Sodium Chloride 2 gm 08/03/16 11:15 08/03/16 13:10 Sodium Chloride Tab PO 2 gm Q8H [facility] Administration Timolol Maleate 0 drop 07/31/16 11:15 08/03/16 10:34 Timoptic 0.5% Ophth Soln OD 1 drop DAILY [facility] Administration - Patient Studies Lab Studies: Lab Studies 08/03/16 08/03/16 08/03/16 Range/Units 12:02 06:22 06:22 WBC 9.3 (4.8-10.8) K/uL RBC 4.28 L (4.40-5.90) Mil/uL Hgb 11.6 L (12.0-18.0) g/dL Hct 34.4 L (35.0-51.0) % MCV 80.4 (80.0-94.0) fL MCH 27.2 (27.0-31.0) pg MCHC 33.8 (33.0-37.0) g/dL RDW 14.4 (11.5-14.5) % Plt Count 181 (130-400) K/uL MPV 8.8 (7.2-11.7) fL Neut % (Auto) 62.8 (50.0-75.0) % Lymph % (Auto) 25.0 (20.0-40.0) % [place] % (Auto) 9.9 (0.0-10.0) % Eos % (Auto) 1.8 (0.0-4.0) % Baso % (Auto) 0.5 (0.0-2.0) % Neut # 5.8 (1.8-7.0) K/uL Lymph # 2.3 (1.0-4.3) K/uL [place] # 0.9 H (0.0-0.8) K/uL Eos # 0.2 (0.0-0.7) K/uL Baso # 0.0 (0.0-0.2) K/uL Sodium 132 (132-148) mmol/L Potassium 3.6 (3.6-5.2) mmol/L Chloride 98 (98-107) mmol/L Carbon Dioxide 23 (22-30) mmol/L Anion Gap 15 (10-20) BUN 6 L (9-20) mg/dL Creatinine 0.8 (0.8-1.5) MG/DL Est GFR ( Amer) > 60 Est GFR (Non-Af Amer) > 60 POC Glucose (mg/dL) 152 H (65-110) mg/dL Random Glucose 128 H (75-110) mg/dL Calcium 8.1 L (8.6-10.4) mg/dl Phosphorus 3.3 (2.5-4.5) mg/dL Magnesium 1.9 (1.6-2.3) mg/dL Total Bilirubin 0.9 (0.2-1.3) mg/dL AST 21 (17-59) U/L ALT 31 (21-72) U/L Alkaline Phosphatase 73 (38-126) U/L Total Protein 6.2 L (6.3-8.3) g/dL Albumin 3.6 (3.5-5.0) g/dL Globulin 2.5 (2.2-3.9) gm/dL Albumin/Globulin Ratio 1.4 (1.0-2.1) 08/03/16 08/02/16 08/02/16 Range/Units 05:39 23:50 17:57 WBC (4.8-10.8) K/uL RBC (4.40-5.90) Mil/uL Hgb (12.0-18.0) g/dL Hct (35.0-51.0) % MCV (80.0-94.0) fL MCH (27.0-31.0) pg MCHC (33.0-37.0) g/dL RDW (11.5-14.5) % Plt Count (130-400) K/uL MPV (7.2-11.7) fL Neut % (Auto) (50.0-75.0) % Lymph % (Auto) (20.0-40.0) % [place] % (Auto) (0.0-10.0) % Eos % (Auto) (0.0-4.0) % Baso % (Auto) (0.0-2.0) % Neut # (1.8-7.0) K/uL Lymph # (1.0-4.3) K/uL [place] # (0.0-0.8) K/uL Eos # (0.0-0.7) K/uL Baso # (0.0-0.2) K/uL Sodium (132-148) mmol/L Potassium (3.6-5.2) mmol/L Chloride (98-107) mmol/L Carbon Dioxide (22-30) mmol/L Anion Gap (10-20) BUN (9-20) mg/dL Creatinine (0.8-1.5) MG/DL Est GFR ( Amer) Est GFR (Non-Af Amer) POC Glucose (mg/dL) 148 H 133 H 139 H (65-110) mg/dL Random Glucose (75-110) mg/dL Calcium (8.6-10.4) mg/dl Phosphorus (2.5-4.5) mg/dL Magnesium (1.6-2.3) mg/dL Total Bilirubin (0.2-1.3) mg/dL AST (17-59) U/L ALT (21-72) U/L Alkaline Phosphatase (38-126) U/L Total Protein (6.3-8.3) g/dL Albumin (3.5-5.0) g/dL Globulin (2.2-3.9) gm/dL Albumin/Globulin Ratio (1.0-2.1) Laboratory Results - last 24 hr 08/02/16 08/02/16 08/03/16 17:57 23:50 05:39 WBC RBC Hgb Hct MCV MCH MCHC RDW Plt Count MPV Neut % (Auto) Lymph % (Auto) [place] % (Auto) Eos % (Auto) Baso % (Auto) Neut # Lymph # [place] # Eos # Baso # Sodium Potassium Chloride Carbon Dioxide Anion Gap BUN Creatinine Est GFR ( Amer) Est GFR (Non-Af Amer) POC Glucose (mg/dL) 139 H 133 H 148 H Random Glucose Calcium Phosphorus Magnesium Total Bilirubin AST ALT Alkaline Phosphatase Total Protein Albumin Globulin Albumin/Globulin Ratio 08/03/16 08/03/16 08/03/16 06:22 06:22 12:02 WBC 9.3 RBC 4.28 L Hgb 11.6 L Hct 34.4 L MCV 80.4 MCH 27.2 MCHC 33.8 RDW 14.4 Plt Count 181 MPV 8.8 Neut % (Auto) 62.8 Lymph % (Auto) 25.0 [place] % (Auto) 9.9 Eos % (Auto) 1.8 Baso % (Auto) 0.5 Neut # 5.8 Lymph # 2.3 [place] # 0.9 H Eos # 0.2 Baso # 0.0 Sodium 132 Potassium 3.6 Chloride 98 Carbon Dioxide 23 Anion Gap 15 BUN 6 L Creatinine 0.8 Est GFR ( Amer) > 60 Est GFR (Non-Af Amer) > 60 POC Glucose (mg/dL) 152 H Random Glucose 128 H Calcium 8.1 L Phosphorus 3.3 Magnesium 1.9 Total Bilirubin 0.9 AST 21 ALT 31 Alkaline Phosphatase 73 Total Protein 6.2 L Albumin 3.6 Globulin 2.5 Albumin/Globulin Ratio 1.4 Fingerstick Blood Sugar Results: 151 Review of Systems - Review of Systems Systems not reviewed;Unavailable: Altered Mental Status Critical Care Progress Note - Nutrition Nutrition: Nutrition Category Date Time Status Heart Healthy Diet [DIET] Diets 08/02/16 Breakfast Active Assessment/Plan - Assessment and Plan (Free Text) Assessment: This is a 75 yo M s/p right sided naomy hole evacuation of subdural hematoma, POD #2 Plan: Neuro: AAOx3 Keppra for seizure ppx Repeat CT - Satisfactory postoperative status following craniotomy, evacuation of large extra-axial fluid collection on the right. Greater details are provided above. No new intra-axial abnormalities. Improved edema, mass effect. No evidence of acute infarction. Drain removed today per neurosurg Continue to monitor for any changes in mental status Cardiovascular: Hemodynamically stable Continue lisinopril Pulmonary: Saturating well in no respiratory distress Monitor O2 sats Gastrointestinal: Heart healthy diet No acute issues Hematology: No issues, monitor H/H Endocrine: No acute issues Renal: Cont IVF Monitor electrolytes and replete as needed Strict I/O Infectious Disease: Afebrile, no leukocytosis GI Prophylaxis: Pepcid DVT Prophylaxis: Heparin <Danie,Jose - Last Filed: 08/03/16 17:35> CCU Objective - Vital Signs / Intake & Output Vital Signs (Last 4 hours): Vital Signs Pulse Resp BP Pulse Ox 08/03/16 14:01 80 14 133/101 H 97 08/03/16 14:00 81 19 97 Intake and Output (Last 8hrs): Intake & Output 08/03/16 08/03/16 08/03/16 06:59 14:59 22:59 Intake Total 600 600 Output Total 550 595 Balance 50 5 Intake: Intake, IV Amount 600 600 Left Antecubital 600 600 Output: Urine 550 595 Urethral (Devlin) 550 595 Other: # Bowel Movements 0 - Medications Active Medications: Active Medications Generic Name Dose Route Start Last Admin Trade Name Freq PRN Reason Stop Dose Admin Artificial Tears 1 ml 07/31/16 05:15 08/03/16 13:15 Artificial Tears OD 1 drp Q4H [facility] Administration Famotidine 20 mg 07/31/16 10:00 08/03/16 10:40 Pepcid PO Not Given DAILY [facility] Heparin Sodium (Porcine) 5,000 units 08/03/16 14:00 08/03/16 15:04 Heparin SC 5,000 units Q8 [facility] Administration Levetiracetam 500 mg/ Sodium 105 mls @ 420 mls/hr 07/30/16 23:45 08/03/16 11: 45 Chloride IVPB 420 mls/hr Q12H [facility] Administration Sodium Chloride 1,000 mls @ 75 mls/hr 08/03/16 11:45 08/03/16 11:45 Sodium Chloride 0.9% IV 75 mls/hr .[id number] [facility] Administration Insulin Human Regular 0 unit 07/31/16 12:00 08/03/16 12:00 Novolin R SC Not Given Q6H [facility] Protocol Latanoprost 0 ml 07/31/16 22:00 08/02/16 21:53 Xalatan Opht OD 1 ml HS [facility] Administration Lisinopril 5 mg 07/31/16 10:00 08/03/16 10:42 Zestril PO Not Given DAILY [facility] Sodium Chloride 2 gm 08/03/16 11:15 08/03/16 13:10 Sodium Chloride Tab PO 2 gm Q8H [facility] Administration Timolol Maleate 0 drop 07/31/16 11:15 08/03/16 10:34 Timoptic 0.5% Ophth Soln OD 1 drop DAILY [facility] Administration - Patient Studies Lab Studies: Lab Studies 08/03/16 08/03/16 08/03/16 Range/Units 12:02 06:22 06:22 WBC 9.3 (4.8-10.8) K/uL RBC 4.28 L (4.40-5.90) Mil/uL Hgb 11.6 L (12.0-18.0) g/dL Hct 34.4 L (35.0-51.0) % MCV 80.4 (80.0-94.0) fL MCH 27.2 (27.0-31.0) pg MCHC 33.8 (33.0-37.0) g/dL RDW 14.4 (11.5-14.5) % Plt Count 181 (130-400) K/uL MPV 8.8 (7.2-11.7) fL Neut % (Auto) 62.8 (50.0-75.0) % Lymph % (Auto) 25.0 (20.0-40.0) % [place] % (Auto) 9.9 (0.0-10.0) % Eos % (Auto) 1.8 (0.0-4.0) % Baso % (Auto) 0.5 (0.0-2.0) % Neut # 5.8 (1.8-7.0) K/uL Lymph # 2.3 (1.0-4.3) K/uL [place] # 0.9 H (0.0-0.8) K/uL Eos # 0.2 (0.0-0.7) K/uL Baso # 0.0 (0.0-0.2) K/uL Sodium 132 (132-148) mmol/L Potassium 3.6 (3.6-5.2) mmol/L Chloride 98 (98-107) mmol/L Carbon Dioxide 23 (22-30) mmol/L Anion Gap 15 (10-20) BUN 6 L (9-20) mg/dL Creatinine 0.8 (0.8-1.5) MG/DL Est GFR ( Amer) > 60 Est GFR (Non-Af Amer) > 60 POC Glucose (mg/dL) 152 H (65-110) mg/dL Random Glucose 128 H (75-110) mg/dL Calcium 8.1 L (8.6-10.4) mg/dl Phosphorus 3.3 (2.5-4.5) mg/dL Magnesium 1.9 (1.6-2.3) mg/dL Total Bilirubin 0.9 (0.2-1.3) mg/dL AST 21 (17-59) U/L ALT 31 (21-72) U/L Alkaline Phosphatase 73 (38-126) U/L Total Protein 6.2 L (6.3-8.3) g/dL Albumin 3.6 (3.5-5.0) g/dL Globulin 2.5 (2.2-3.9) gm/dL Albumin/Globulin Ratio 1.4 (1.0-2.1) 08/03/16 08/02/16 08/02/16 Range/Units 05:39 23:50 17:57 WBC (4.8-10.8) K/uL RBC (4.40-5.90) Mil/uL Hgb (12.0-18.0) g/dL Hct (35.0-51.0) % MCV (80.0-94.0) fL MCH (27.0-31.0) pg MCHC (33.0-37.0) g/dL RDW (11.5-14.5) % Plt Count (130-400) K/uL MPV (7.2-11.7) fL Neut % (Auto) (50.0-75.0) % Lymph % (Auto) (20.0-40.0) % [place] % (Auto) (0.0-10.0) % Eos % (Auto) (0.0-4.0) % Baso % (Auto) (0.0-2.0) % Neut # (1.8-7.0) K/uL Lymph # (1.0-4.3) K/uL [place] # (0.0-0.8) K/uL Eos # (0.0-0.7) K/uL Baso # (0.0-0.2) K/uL Sodium (132-148) mmol/L Potassium (3.6-5.2) mmol/L Chloride (98-107) mmol/L Carbon Dioxide (22-30) mmol/L Anion Gap (10-20) BUN (9-20) mg/dL Creatinine (0.8-1.5) MG/DL Est GFR ( Amer) Est GFR (Non-Af Amer) POC Glucose (mg/dL) 148 H 133 H 139 H (65-110) mg/dL Random Glucose (75-110) mg/dL Calcium (8.6-10.4) mg/dl Phosphorus (2.5-4.5) mg/dL Magnesium (1.6-2.3) mg/dL Total Bilirubin (0.2-1.3) mg/dL AST (17-59) U/L ALT (21-72) U/L Alkaline Phosphatase (38-126) U/L Total Protein (6.3-8.3) g/dL Albumin (3.5-5.0) g/dL Globulin (2.2-3.9) gm/dL Albumin/Globulin Ratio (1.0-2.1) Laboratory Results - last 24 hr 08/02/16 08/02/16 08/03/16 17:57 23:50 05:39 WBC RBC Hgb Hct MCV MCH MCHC RDW Plt Count MPV Neut % (Auto) Lymph % (Auto) [place] % (Auto) Eos % (Auto) Baso % (Auto) Neut # Lymph # [place] # Eos # Baso # Sodium Potassium Chloride Carbon Dioxide Anion Gap BUN Creatinine Est GFR ( Amer) Est GFR (Non-Af Amer) POC Glucose (mg/dL) 139 H 133 H 148 H Random Glucose Calcium Phosphorus Magnesium Total Bilirubin AST ALT Alkaline Phosphatase Total Protein Albumin Globulin Albumin/Globulin Ratio 08/03/16 08/03/16 08/03/16 06:22 06:22 12:02 WBC 9.3 RBC 4.28 L Hgb 11.6 L Hct 34.4 L MCV 80.4 MCH 27.2 MCHC 33.8 RDW 14.4 Plt Count 181 MPV 8.8 Neut % (Auto) 62.8 Lymph % (Auto) 25.0 [place] % (Auto) 9.9 Eos % (Auto) 1.8 Baso % (Auto) 0.5 Neut # 5.8 Lymph # 2.3 [place] # 0.9 H Eos # 0.2 Baso # 0.0 Sodium 132 Potassium 3.6 Chloride 98 Carbon Dioxide 23 Anion Gap 15 BUN 6 L Creatinine 0.8 Est GFR ( Amer) > 60 Est GFR (Non-Af Amer) > 60 POC Glucose (mg/dL) 152 H Random Glucose 128 H Calcium 8.1 L Phosphorus 3.3 Magnesium 1.9 Total Bilirubin 0.9 AST 21 ALT 31 Alkaline Phosphatase 73 Total Protein 6.2 L Albumin 3.6 Globulin 2.5 Albumin/Globulin Ratio 1.4 Critical Care Progress Note - Nutrition Nutrition: Nutrition Category Date Time Status Heart Healthy Diet [DIET] Diets 08/02/16 Breakfast Active Attending/Attestation - Attestation I have personally seen and examined this patient.: Yes I have fully participated in the care of the patient.: Yes I have reviewed all pertinent clinical information: Yes Notes (Text): 08/03/16 17:33 Pt seen and examined on rounds with Dr. Aponte and pt RN. All pertinent PN/labs/ meds/imaging reviewed personally and discussed with involved consultants. I agree with the assessment and plan as outlined above which reflects my direct input. events noted; more confused after receiving Xanax overnight otherwise no change in exam NSGY to remove drain today d/c hypotonic IVF; start Na tabs and change IVF to NS maintain eunatremia if unable to swallow, will need NGT for nutrition / meds OOB/ PT eval Gi / DVT PPx stable for transfer once cleared by NSGY and drain d/c'd Jose Helton MD
[2016-08-03] MEDS: Latanoprost 2.5 ml Opht Soln OD SCH (21:35)
[2016-08-04] MEDS: Aritificial Tears (15ml) OD SCH ×6 (01:03→21:18)
[2016-08-04] MEDS: Sodium Chloride 0.9% 1,000 ML IV SCH ×3 (01:16→18:56)
[2016-08-04] MEDS: (Novolin R) Insulin Human Regular 100 units/ml vial SC SCH ×4 (06:00→23:29)
[2016-08-04 08:30] LABS: BASO # 0.1 K/uL (0.0-0.2); EOS # 0.2 K/uL (0.0-0.7); HEMATOCRIT 33.3 % (35.0-51.0); MEAN CORPUSCULAR HEMOGLOBIN 26.9 pg (27.0-31.0); MEAN CORPUSCULAR HGB CONC 32.3 g/dL (33.0-37.0); MEAN PLATELET VOLUME 8.9 fL (7.2-11.7); MONO # 0.6 K/uL (0.0-0.8); RED CELL DISTRIBUTION WIDTH 14.4 % (11.5-14.5); WHITE BLOOD COUNT 7.9 K/uL (4.8-10.8)
[2016-08-04 08:33] LABS: CHLORIDE 100 mmol/L (98-107)
[2016-08-04 08:34] LABS: POTASSIUM 4.4 mmol/L (3.6-5.2); SODIUM 132 mmol/L (132-148)
[2016-08-04 08:36] LABS: BILIRUBIN,TOTAL 0.9 mg/dL (0.2-1.3); CARBON DIOXIDE 20 mmol/L (22-30); GFR AFRICAN-AMERICAN > 60
[2016-08-04 08:37] LABS: ALKALINE PHOSPHATASE 85 U/L (38-126); ALT/SGPT 36 U/L (21-72); AST/SGOT 40 U/L (17-59); BLOOD UREA NITROGEN 9 mg/dL (9-20); CALCIUM 8.2 mg/dl (8.6-10.4); GLUCOSE,RANDOM 114 mg/dL (75-110); PHOSPHOROUS 3.5 mg/dL (2.5-4.5); TOTAL PROTEIN 6.6 g/dL (6.3-8.3)
[2016-08-04 09:00] LABS: MEAN CELL VOLUME 83.2 fL (80.0-94.0)
[2016-08-04] MEDS: levETIRAcetam 500 MG in Sodium Chloride 0.9% 100 ML IVPB SCH ×2 (10:46→18:12)
[2016-08-04 11:18] LABS: EOS % 2.8 % (0.0-4.0); LYMPH % 25.3 % (20.0-40.0); MONO % 7.5 % (0.0-10.0)
[2016-08-04 11:19] LABS: NRBC % 0.3 % (0.0-2.0)
--- NOTE | 2016-08-04 13:45 | CP.PCM.PN ---
Addendum entered and electronically signed by Elizabeth Mock DO 08/04/16 17: 33: Will stop PT/OOB order at this time. Keppra converted back to IV as per. Dr. Garner. Addendum entered and electronically signed by Elizabeth Mock DO 08/04/16 17: 31: Dr. Rose made aware and will evaluate the patient. Addendum entered and electronically signed by Elizabeth Mock DO 08/04/16 17: 12: f/u Head CT done today 08/04/16 showed acute extra-axial hemorrhage with blood layering in the extra-axial space. Increase in sulcal effacement, mass effect and midline shift. There is no evidence of herniation. This follows removal of the surgical drain identified previously. Call placed to neurosurgery for recommendations. Awaiting call back. Original Note: <Elizabeth Mock - Last Filed: 08/04/16 16:53> Subjective - Date & Time of Evaluation Date of Evaluation: 08/04/16 Time of Evaluation: 09:00 - Subjective Subjective: Medicine Progress Note- Dr. Garza's Service: Patient seen and examined at bedside this Am. Patient's daughter at bedside and providing interpretations. Daughter reports patient has been very sleepy since yesterday. However, patient is answering questions appropriately. He denies chest pain, SOB, headache, abdominal pain, diarrhea, constipation. Garzon was removed this AM and [place] cath was placed. As per daughter, patient is able to see and recognize her. She fed him yogurt, apple sauce and other soft foods which he tolerated. No other complaints at this time. Objective - Vital Signs/Intake and Output Vital Signs (last 24 hours): Temp Pulse Resp BP Pulse Ox 97.9 F 79 19 148/81 94 L 08/04/16 12:00 08/04/16 12:00 08/04/16 12:00 08/04/16 12:00 08/04/16 12:00 Intake and Output: 08/04/16 08/04/16 06:59 18:59 Intake Total 1200 Output Total 1500 Balance -300 - Medications Medications: Current Medications Artificial Tears (Artificial Tears) 1 ml OD Q4H [facility] Last Admin: 08/04/16 09:45 Dose: 1 drp Famotidine (Pepcid) 20 mg PO DAILY [facility] Last Admin: 08/04/16 09:45 Dose: 20 mg Heparin Sodium (Porcine) (Heparin) 5,000 units SC Q8 [facility] Last Admin: 08/04/16 05:43 Dose: 5,000 units Levetiracetam 500 mg/ Sodium (Chloride) 105 mls @ 420 mls/hr IVPB Q12H [facility] Last Admin: 08/04/16 10:46 Dose: 420 mls/hr Sodium Chloride (Sodium Chloride 0.9%) 1,000 mls @ 75 mls/hr IV .[id number] [facility] Last Admin: 08/04/16 01:16 Dose: 75 mls/hr Insulin Human Regular (Novolin R) 0 unit SC Q6H [facility] PRN Reason: Protocol Last Admin: 08/04/16 13:41 Dose: Not Given Latanoprost (Xalatan Opht) 0 ml OD HS [facility] Last Admin: 08/03/16 21:35 Dose: 1 ml Lisinopril (Zestril) 5 mg PO DAILY [facility] Last Admin: 08/04/16 09:45 Dose: 5 mg Sodium Chloride (Sodium Chloride Tab) 2 gm PO Q8H [facility] Last Admin: 08/04/16 10:38 Dose: 2 gm Timolol Maleate (Timoptic 0.5% Oph Soln) 0 drop OD DAILY [facility] Last Admin: 08/04/16 09:45 Dose: 1 drop - Labs Labs: 08/04/16 06:52 08/04/16 08:17 PT 11.2 SECONDS (9.7-12.2) 07/30/16 23:18 INR 1.0 07/30/16 23:18 APTT 29 SECONDS (21-34) 07/30/16 23:18 - Constitutional Appears: No Acute Distress - Head Exam Head Exam: NORMAL INSPECTION, NORMOCEPHALIC Additional comments: incision site dressed. Dressing is C/D/I - Eye Exam Eye Exam: EOMI (right eye), Normal appearance (right eye), PERRL (right eye) Additional comments: Left esotropia - ENT Exam ENT Exam: Mucous Membranes Moist - Neck Exam Neck Exam: Normal Inspection - Respiratory Exam Respiratory Exam: Clear to Ausculation Bilateral, NORMAL BREATHING PATTERN - Cardiovascular Exam Cardiovascular Exam: REGULAR RHYTHM, +S1, +S2 - GI/Abdominal Exam GI & Abdominal Exam: Soft. absent: Distended, Tenderness - Extremities Exam Extremities Exam: absent: Pedal Edema, Tenderness - Neurological Exam Neurological Exam: Awake, Oriented x3 - Psychiatric Exam Psychiatric exam: Normal Affect, Normal Mood - Skin Skin Exam: Dry, Warm Assessment and Plan - Assessment and Plan (Free Text) Assessment: (1) Cerebral hemorrhage Assessment & Plan: Patient with SDH POD 3 s/p [place] hole and evacuation of subdural hemorrhage. Less confused today. AAOX3. Downgraded to Telemetry. Neurosurgery: Dr. Bolden - help appreciated * POD 3: s/p [place] hole and evacuation of subdural hemorrhage with Dang and David drain * Removal of drain on 08/03/16 * As per neurosurg- CT showed good resolution of SDH. Neurology: Dr Bonner on board -help appreciated * Keppra 500mg IVPB changed to POQ 12hours for seizure prophylaxis * Will start PT/OT as per neurosurg. OOB to chair. * As per neuro: no benzos since pt gets confused. Seroquel PRN for agitation. Imaging: Head CT (07/30/16): CT Head without contrast: 1. The left orbit appears to be rotated 90 degrees to the right while the right orbit appears to be oriented normally. 2. 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 This results in severe mass effect on the underlying brain, including 1.4 cm of leftward midline shift and compression of the right lateral ventricle. Asymmetric enlargement of the right temporal horn suggestive of early entrapment. Head CT (08/02/16): satisfactory postoperative status following craniotomy, evacuation of large extra-axial fluid collection on the right. No new intra- axial abnormalities. Improved edema, mass effect. No evidence of acute infarction. Status: Acute (2) Hypertension Assessment & Plan: * Lisinopril 5mg PO daily * Monitor vitals signs Status: Chronic (3) Diabetes Assessment & Plan: HgbA1C: 5.9 Accuchecks Q6 hours ISS 2gm Na/heart healthy/consistent Carb diet started as per neurosurgery Status: Chronic (4) Prophylactic measure Assessment & Plan: Chemical anticoagulation contraindicated secondary to subdural hemorrhage Pepcid 20mg PO daily SCDs PT/OT Status: Acute <Connie Garner V - Last Filed: 08/04/16 21:02> Objective - Vital Signs/Intake and Output Vital Signs (last 24 hours): Temp Pulse Resp BP Pulse Ox 100 F H 81 18 148/88 96 08/04/16 16:00 08/04/16 16:00 08/04/16 16:00 08/04/16 16:00 08/04/16 16:00 Intake and Output: 08/04/16 08/04/16 06:59 18:59 Intake Total 1200 900 Output Total 1500 650 Balance -300 250 - Medications Medications: Current Medications Artificial Tears (Artificial Tears) 1 ml OD Q4H [facility] Last Admin: 08/04/16 13:58 Dose: 1 drp Famotidine (Pepcid) 20 mg PO DAILY [facility] Last Admin: 08/04/16 09:45 Dose: 20 mg Sodium Chloride (Sodium Chloride 0.9%) 1,000 mls @ 75 mls/hr IV .[id number] [facility] Last Admin: 08/04/16 01:16 Dose: 75 mls/hr Levetiracetam 500 mg/ Sodium (Chloride) 105 mls @ 420 mls/hr IVPB Q12H [facility] Mannitol (Mannitol) 250 mls @ 1,000 mls/hr IV .Q15M [facility] Insulin Human Regular (Novolin R) 0 unit SC Q6H [facility] PRN Reason: Protocol Last Admin: 08/04/16 13:41 Dose: Not Given Latanoprost (Xalatan Opht) 0 ml OD HS [facility] Last Admin: 08/03/16 21:35 Dose: 1 ml Lisinopril (Zestril) 5 mg PO DAILY [facility] Last Admin: 08/04/16 09:45 Dose: 5 mg Sodium Chloride (Sodium Chloride Tab) 2 gm PO Q8H [facility] Last Admin: 08/04/16 10:38 Dose: 2 gm Timolol Maleate (Timoptic 0.5% Ophth Soln) 0 drop OD DAILY [facility] Last Admin: 08/04/16 09:45 Dose: 1 drop - Labs Labs: 08/04/16 06:52 08/04/16 08:17 PT 11.2 SECONDS (9.7-12.2) 07/30/16 23:18 INR 1.0 07/30/16 23:18 APTT 29 SECONDS (21-34) 07/30/16 23:18 Assessment and Plan (1) Cerebral hemorrhage Status: Acute (2) Hypertension Status: Chronic (3) Diabetes Status: Chronic (4) Constipation Status: Chronic (5) Prophylactic measure Status: Acute Attending/Attestation - Attestation I have personally seen and examined this patient.: Yes I have fully participated in the care of the patient.: Yes I have reviewed all pertinent clinical information, including history, physical exam and plan: Yes Notes (Text): Patient seen, examined and case discuss with day-time resident. Patient seen this morning with daughter preseent Patient this morning less lethargic compared to yesterday, per daughter ate applesauce, and speaking bit more, per daughter looks better compared to yesterday, able to recognize her. Patient able to recognize me from before this morning compared to yesterday. Repeat CT head ordered per neurology this afternoon. I reassessed the patient again, patient appears more lethargic and drowsy compared to this morning when I saw him with the daughter--->slight weakness over LUE 4/5 other extremities 5/ 5. Discussed with ICU regarding CT head findings and my resident called neurosurgery (Dr. Cervantes), regarding new CT head findings, report he will assess the patient Patient had temperature 100F-->ordered for cultures, repeat Chest xray. Patient is NPO, aspiration precautions, NGT insertion, garzon placed, and transferred back to critical care. Discussed with neurology and ICU--> neurology discussed with neurosurgery regarding Ct head interval change in SDH s/p removal of drain, patient scheduled for OR with neurosurgery in AM for cranitomy/evacuation. Spoke with family at bedside with neuro and ICU.
--- NOTE | 2016-08-04 17:06 | CT ---
PROCEDURE: CT HEAD WITHOUT CONTRAST. HISTORY: subdural COMPARISON: 11/02/2016. TECHNIQUE: Axial computed tomography images were obtained through the head/brain without intravenous contrast. Radiation dose: Total exam DLP = 984.78 mGy-cm. This CT exam was performed using one or more of the following dose reduction techniques: Automated exposure control, adjustment of the mA and/or kV according to patient size, and/or use of iterative reconstruction technique. FINDINGS: HEMORRHAGE: Extra-axial fluid collection is increased in size and complex common now with evidence of acute hemorrhage, layering of blood as well as hemorrhagic components/clot within the extra-axial space. Greater degree of sulcal effacement. Increased midline shift noted. In the antrum, since the prior study, at the surgical drain has been removed. BRAIN: Increase with respect to edema, mass effect and midline shift. VENTRICLES: Max affect upon the lateral ventricles has increased. Basilar/quadrigeminal cisterns are unremarkable. There is no evidence of herniation. CALVARIUM: Unremarkable. PARANASAL SINUSES: Unremarkable as visualized. No significant inflammatory changes. MASTOID AIR CELLS: Unremarkable as visualized. No inflammatory changes. OTHER FINDINGS: None. IMPRESSION: Acute extra-axial hemorrhage with blood layering in the extra-axial space. Increase in sulcal effacement, mass effect and midline shift. There is no evidence of herniation. This follows removal of the surgical drain identified previously. Communication of results: Verbal report was provided at the time of this interpretation.
[2016-08-04] MEDS ORDERED: Sodium Chloride 0.9% 1,000 ML IV ONE (18:31)
--- NOTE | 2016-08-04 18:39 | CP.CCUPN ---
CCU Subjective - Physician Review Subjective (Free Text): 08/04/16 18:39 events noted. awake and interactive this morning. tolerating PO. this afternoon, more lethargic. Rpt HCT shows worsening R SDH. ICU reconsulted Tm 100. Afeb. VSS Gen: lethargic but arousable and appropriately responsive (Family translated) HEENT: R pupil sluggish; L adducted -- blind Neck: Supple COR: S1, S2, RRR, Resp: CTA b/l ABD: Soft, nt/nd, BS +ve Ext: no edema Neuro: lethargic. opens eyes to command. moves all extremities spont. RUE 5/ 5; LUE 4/5. R+L LE 5/5. gait not tested. Meds / Labs / Imaging reviewed independently as noted below. A/P: 75M with R tSDH acute / chronic s/p naomy hole evac, POD3, drain pulled yesterday. Now with interval increase in SDH with AMS and slight weakness LUE. D/w Neuro who d/w NSGY. Plan for OR in AM for crani and evac Neuro: no sedatives/hypnotics/anxiolytics. Mannitol 20% IVP bolus now. NS bolus now and increase maintenance to 125/hr. rpt bmp. strict bp control maintain SBP < 140. q1 neuro checks. cont prophylactic AED. will hold SQH. Resp: KENN Cards: increase lisinopril. added hydralazine PRN GI: NPO. insert NGT. aspiration precautions. GI PPx Renal: monitor I&O. ID: KENN Heme: SCDs for ppx ; hep sq on hold. prognosis guarded d/w family at great length and all questions answered to their satisfaction. Jose Helton MD CC time spent 45min CCU Objective - Vital Signs / Intake & Output Vital Signs (Last 4 hours): Vital Signs Temp Pulse Resp BP Pulse Ox 08/04/16 18:00 86 22 164/85 H 93 L 08/04/16 16:00 100 F H 81 18 148/88 96 Intake and Output (Last 8hrs): Intake & Output 08/04/16 08/04/16 08/04/16 06:59 14:59 22:59 Intake Total 1200 1325 Output Total 1500 850 Balance -300 475 Intake: Intake, IV Amount 1000 1125 Left Forearm 1000 700 Left Hand Medial Port 250 Left Hand Proximal Port 75 Right Hand Proximal Port 100 Oral 200 200 Output: Urine 1500 850 Urethral (Devlin) 1500 850 Other: # Bowel Movements 0 - Medications Active Medications: Active Medications Generic Name Dose Route Start Last Admin Trade Name Freq PRN Reason Stop Dose Admin Artificial Tears 1 ml 07/31/16 05:15 08/04/16 18:14 Artificial Tears OD 1 drp Q4H G[facility] Administration Famotidine 20 mg 08/05/16 10:00 Pepcid IVP DAILY GORDO Hydralazine HCl 10 mg 08/04/16 18:30 Apresoline IVP Q6H PRN Systolic Blood Pressure Levetiracetam 500 mg/ Sodium 105 mls @ 420 mls/hr 08/04/16 18:00 08/04/16 18: 12 Chloride IVPB 420 mls/hr Q12H G[facility] Administration Sodium Chloride 1,000 mls @ 1,000 mls/hr 08/04/16 18:31 Sodium Chloride 0.9% IV 08/04/16 19:30 .Q1H ONE Sodium Chloride 1,000 mls @ 125 mls/hr 08/04/16 18:31 Sodium Chloride 0.9% IV .Q8H [facility] Insulin Human Regular 0 unit 07/31/16 12:00 08/04/16 18:00 Novolin R SC Not Given Q6H [facility] Protocol Latanoprost 0 ml 07/31/16 22:00 08/03/16 21:35 Xalatan Opht OD 1 ml HS GORDO Administration Lisinopril 20 mg 08/04/16 18:32 Zestril PO DAILY GORDO Sodium Chloride 2 gm 08/03/16 11:15 08/04/16 18:15 Sodium Chloride Tab PO Not Given Q8H G[facility] Timolol Maleate 0 drop 07/31/16 11:15 08/04/16 09:45 Timoptic 0.5% Ophth Soln OD 1 drop DAILY GORDO Administration - Patient Studies Lab Studies: Lab Studies 08/04/16 08/04/16 08/04/16 Range/Units 17:04 12:22 08:17 WBC (4.8-10.8) K/uL RBC (4.40-5.90) Mil/uL Hgb (12.0-18.0) g/dL Hct (35.0-51.0) % MCV (80.0-94.0) fL MCH (27.0-31.0) pg MCHC (33.0-37.0) g/dL RDW (11.5-14.5) % Plt Count (130-400) K/uL MPV (7.2-11.7) fL Neut % (Auto) (50.0-75.0) % Lymph % (Auto) (20.0-40.0) % [place] % (Auto) (0.0-10.0) % Eos % (Auto) (0.0-4.0) % Baso % (Auto) (0.0-2.0) % Neut # (1.8-7.0) K/uL Lymph # (1.0-4.3) K/uL [place] # (0.0-0.8) K/uL Eos # (0.0-0.7) K/uL Baso # (0.0-0.2) K/uL Sodium 132 (132-148) mmol/L Potassium 4.4 (3.6-5.2) mmol/L Chloride 100 (98-107) mmol/L Carbon Dioxide 20 L (22-30) mmol/L Anion Gap 16 (10-20) BUN 9 (9-20) mg/dL Creatinine 0.8 (0.8-1.5) MG/DL Est GFR ( Amer) > 60 Est GFR (Non-Af Amer) > 60 POC Glucose (mg/dL) 118 H 135 H (65-110) mg/dL Random Glucose 114 H (75-110) mg/dL Calcium 8.2 L (8.6-10.4) mg/dl Phosphorus 3.5 (2.5-4.5) mg/dL Magnesium 2.0 (1.6-2.3) mg/dL Total Bilirubin 0.9 (0.2-1.3) mg/dL AST 40 (17-59) U/L ALT 36 (21-72) U/L Alkaline Phosphatase 85 (38-126) U/L Total Protein 6.6 (6.3-8.3) g/dL Albumin 3.4 L (3.5-5.0) g/dL Globulin 3.2 (2.2-3.9) gm/dL Albumin/Globulin Ratio 1.0 (1.0-2.1) 08/04/16 08/04/16 08/03/16 Range/Units 06:52 05:50 23:48 WBC 7.9 (4.8-10.8) K/uL RBC 4.00 L (4.40-5.90) Mil/uL Hgb 10.8 L (12.0-18.0) g/dL Hct 33.3 L (35.0-51.0) % MCV 83.2 D (80.0-94.0) fL MCH 26.9 L (27.0-31.0) pg MCHC 32.3 L (33.0-37.0) g/dL RDW 14.4 (11.5-14.5) % Plt Count 133 (130-400) K/uL MPV 8.9 (7.2-11.7) fL Neut % (Auto) 63.4 (50.0-75.0) % Lymph % (Auto) 25.3 (20.0-40.0) % [place] % (Auto) 7.5 (0.0-10.0) % Eos % (Auto) 2.8 (0.0-4.0) % Baso % (Auto) 1.0 (0.0-2.0) % Neut # 5.0 (1.8-7.0) K/uL Lymph # 2.0 (1.0-4.3) K/uL [place] # 0.6 (0.0-0.8) K/uL Eos # 0.2 (0.0-0.7) K/uL Baso # 0.1 (0.0-0.2) K/uL Sodium (132-148) mmol/L Potassium (3.6-5.2) mmol/L Chloride (98-107) mmol/L Carbon Dioxide (22-30) mmol/L Anion Gap (10-20) BUN (9-20) mg/dL Creatinine (0.8-1.5) MG/DL Est GFR ( Amer) Est GFR (Non-Af Amer) POC Glucose (mg/dL) 120 H 153 H (65-110) mg/dL Random Glucose (75-110) mg/dL Calcium (8.6-10.4) mg/dl Phosphorus (2.5-4.5) mg/dL Magnesium (1.6-2.3) mg/dL Total Bilirubin (0.2-1.3) mg/dL AST (17-59) U/L ALT (21-72) U/L Alkaline Phosphatase (38-126) U/L Total Protein (6.3-8.3) g/dL Albumin (3.5-5.0) g/dL Globulin (2.2-3.9) gm/dL Albumin/Globulin Ratio (1.0-2.1) Laboratory Results - last 24 hr 08/03/16 08/04/16 08/04/16 23:48 05:50 06:52 WBC 7.9 RBC 4.00 L Hgb 10.8 L Hct 33.3 L MCV 83.2 D MCH 26.9 L MCHC 32.3 L RDW 14.4 Plt Count 133 MPV 8.9 Neut % (Auto) 63.4 Lymph % (Auto) 25.3 [place] % (Auto) 7.5 Eos % (Auto) 2.8 Baso % (Auto) 1.0 Neut # 5.0 Lymph # 2.0 [place] # 0.6 Eos # 0.2 Baso # 0.1 Sodium Potassium Chloride Carbon Dioxide Anion Gap BUN Creatinine Est GFR ( Amer) Est GFR (Non-Af Amer) POC Glucose (mg/dL) 153 H 120 H Random Glucose Calcium Phosphorus Magnesium Total Bilirubin AST ALT Alkaline Phosphatase Total Protein Albumin Globulin Albumin/Globulin Ratio 08/04/16 08/04/16 08/04/16 08:17 12:22 17:04 WBC RBC Hgb Hct MCV MCH MCHC RDW Plt Count MPV Neut % (Auto) Lymph % (Auto) [place] % (Auto) Eos % (Auto) Baso % (Auto) Neut # Lymph # [place] # Eos # Baso # Sodium 132 Potassium 4.4 Chloride 100 Carbon Dioxide 20 L Anion Gap 16 BUN 9 Creatinine 0.8 Est GFR ( Amer) > 60 Est GFR (Non-Af Amer) > 60 POC Glucose (mg/dL) 135 H 118 H Random Glucose 114 H Calcium 8.2 L Phosphorus 3.5 Magnesium 2.0 Total Bilirubin 0.9 AST 40 ALT 36 Alkaline Phosphatase 85 Total Protein 6.6 Albumin 3.4 L Globulin 3.2 Albumin/Globulin Ratio 1.0 Radiology Impressions: Head CT 08/04/16: acute extra-axial hemorrhage with blood layering in the extra- axial space. Increase in sulcal effacement, mass effect and midline shift. There is no evidence of herniation. This follows removal of the surgical drain identified previously. Fingerstick Blood Sugar Results: 118 Review of Systems - Review of Systems Systems not reviewed;Unavailable: Acuity of Condition Critical Care Progress Note - Nutrition Nutrition: Nutrition Category Date Time Status NPO Diet [DIET] Diets 08/04/16 Breakfast Active
--- NOTE | 2016-08-04 20:39 | CP.PCM.PN ---
Subjective - Date & Time of Evaluation Date of Evaluation: 08/04/16 Time of Evaluation: 14:00 - Subjective Subjective: Mr. Renee Lopez was seen and examined today at bedside in the ICU. His and relative were present and they confirmed that the patient has been progressively more lethargic throughout the day. I had ordered a CT scan of the head, which showed increased subdural hematoma and worsening midline shift. I called neurosurgery and spoke with the home office representative and the patients attending to discuss hypertonics and emergent evacuation. Objective - Vital Signs/Intake and Output Vital Signs (last 24 hours): Temp Pulse Resp BP Pulse Ox 100 F H 88 22 151/81 H 95 08/04/16 16:00 08/04/16 20:00 08/04/16 20:00 08/04/16 19:59 08/04/16 20:00 Intake and Output: 08/04/16 08/05/16 18:59 06:59 Intake Total 1475 1125 Output Total 850 350 Balance 625 775 - Medications Medications: Current Medications Artificial Tears (Artificial Tears) 1 ml OD Q4H [facility] Last Admin: 08/04/16 18:14 Dose: 1 drp Famotidine (Pepcid) 20 mg IVP DAILY GORDO Hydralazine HCl (Apresoline) 10 mg IVP Q6H PRN PRN Reason: Systolic Blood Pressure Last Admin: 08/04/16 19:58 Dose: 10 mg Levetiracetam 500 mg/ Sodium (Chloride) 105 mls @ 420 mls/hr IVPB Q12H [facility] Last Admin: 08/04/16 18:12 Dose: 420 mls/hr Sodium Chloride (Sodium Chloride 0.9%) 1,000 mls @ 125 mls/hr IV .Q8H [facility] Last Admin: 08/04/16 18:56 Dose: 125 mls/hr Insulin Human Regular (Novolin R) 0 unit SC Q6H [facility]O PRN Reason: Protocol Last Admin: 08/04/16 18:00 Dose: Not Given Latanoprost (Xalatan Opht) 0 ml OD HS [facility] Last Admin: 08/03/16 21:35 Dose: 1 ml Lisinopril (Zestril) 20 mg PO DAILY GORDO Sodium Chloride (Sodium Chloride Tab) 2 gm PO Q8H [facility] Last Admin: 08/04/16 18:15 Dose: Not Given Timolol Maleate (Timoptic 0.5% Ophth Soln) 0 drop OD DAILY GORDO Last Admin: 08/04/16 09:45 Dose: 1 drop - Labs Labs: 08/04/16 06:52 08/04/16 08:17 PT 11.2 SECONDS (9.7-12.2) 07/30/16 23:18 INR 1.0 07/30/16 23:18 APTT 29 SECONDS (21-34) 07/30/16 23:18 - Constitutional Appears: Confused - Head Exam Additional comments: Incision site at right temporal/parietal region is C/D/I - Eye Exam Pupil Exam: NORMAL ACCOMODATION, PERRL - ENT Exam ENT Exam: Mucous Membranes Moist, Normal Exam - Neck Exam Neck Exam: Full ROM, Normal Inspection. absent: Lymphadenopathy - Respiratory Exam Respiratory Exam: Clear to Ausculation Bilateral, NORMAL BREATHING PATTERN - Cardiovascular Exam Cardiovascular Exam: REGULAR RHYTHM, +S1, +S2. absent: Murmur - GI/Abdominal Exam GI & Abdominal Exam: Soft, Normal Bowel Sounds. absent: Tenderness - Neurological Exam Neurological Exam: Altered Neuro motor strength exam: Left Upper Extremity: 3, Right Upper Extremity: 4, Left Lower Extremity: 3, Right Lower Extremity: 4 Assessment and Plan (1) Subdural hemorrhage following injury Assessment & Plan: Worsening clinical exam and corresponding increased SDH and midline shift. Will bolus with mannitol, keep head elevated, Q1 hour neuro-checks and plan for neurosurgical evacuation in the AM. If there is worsening of the mental status or deterioration in the neurological exam, will obtain a STAT CT head to evaluate. Status: Acute
[2016-08-04] MEDS: Latanoprost 2.5 ml Opht Soln OD SCH (21:17)
[2016-08-04 22:35] LABS: CHLORIDE 100 mmol/L (98-107); POTASSIUM 3.6 mmol/L (3.6-5.2); SODIUM 131 mmol/L (132-148)
[2016-08-04 22:38] LABS: BLOOD UREA NITROGEN 7 mg/dL (9-20); CARBON DIOXIDE 24 mmol/L (22-30); GFR AFRICAN-AMERICAN > 60
[2016-08-04 22:39] LABS: GLUCOSE,RANDOM 102 mg/dL (75-110)
[2016-08-05] MEDS: Aritificial Tears (15ml) OD SCH ×2 (01:35→04:53)
[2016-08-05] MEDS: Sodium Chloride 0.9% 1,000 ML IV SCH ×3 (03:20→18:32)
[2016-08-05] MEDS: (Novolin R) Insulin Human Regular 100 units/ml vial SC SCH ×3 (05:06→18:32)
[2016-08-05] MEDS: levETIRAcetam 500 MG in Sodium Chloride 0.9% 100 ML IVPB SCH ×2 (05:06→18:10)
[2016-08-05 06:30] LABS: BASO % 0.4 % (0.0-2.0); EOS # 0.3 K/uL (0.0-0.7); EOS % 2.8 % (0.0-4.0); HEMATOCRIT 32.6 % (35.0-51.0); LYMPH # 1.8 K/uL (1.0-4.3); MEAN CELL VOLUME 80.6 fL (80.0-94.0); MEAN CORPUSCULAR HEMOGLOBIN 26.8 pg (27.0-31.0); MEAN CORPUSCULAR HGB CONC 33.2 g/dL (33.0-37.0); MEAN PLATELET VOLUME 8.7 fL (7.2-11.7); MONO % 9.6 % (0.0-10.0); RED CELL DISTRIBUTION WIDTH 14.2 % (11.5-14.5)
[2016-08-05 06:37] LABS: CHLORIDE 100 mmol/L (98-107)
[2016-08-05 06:38] LABS: POTASSIUM 3.6 mmol/L (3.6-5.2); SODIUM 131 mmol/L (132-148)
[2016-08-05 06:40] LABS: ALB/GLOB RATIO 1.2 (1.0-2.1); ALKALINE PHOSPHATASE 103 U/L (38-126); AST/SGOT 49 U/L (17-59); BLOOD UREA NITROGEN 8 mg/dL (9-20); CARBON DIOXIDE 19 mmol/L (22-30); GFR AFRICAN-AMERICAN > 60; TOTAL PROTEIN 6.4 g/dL (6.3-8.3)
[2016-08-05 06:41] LABS: ALT/SGPT 56 U/L (21-72); CALCIUM 8.1 mg/dl (8.6-10.4); GLUCOSE,RANDOM 106 mg/dL (75-110); PHOSPHOROUS 3.2 mg/dL (2.5-4.5)
--- NOTE | 2016-08-05 08:09 | CP.CCUPN ---
CCU Subjective - Physician Review Subjective (Free Text): awaiting OR intervention. no change in exam overnight. Afeb. VSS Gen: lethargic (Family translated) HEENT: R pupil sluggish; L adducted -- blind Neck: Supple COR: S1, S2, RRR, Resp: CTA b/l ABD: Soft, nt/nd, BS +ve Ext: no edema Neuro: lethargic. opens eyes to command. moves all extremities spont. RUE 5/ 5; LUE 4/5. R+L LE 5/5. gait not tested. Meds / Labs / Imaging reviewed independently as noted below. A/P: 75M with R tSDH acute / chronic s/p naomy hole evac, POD3, drain pulled yesterday. Now with interval increase in SDH with AMS and slight weakness LUE. D/w Neuro who d/w NSGY. Plan for OR this AM for crani and evac Neuro: no sedatives/hypnotics/anxiolytics. Will f/u post op and d/w NSGY re: further recs. strict bp control maintain SBP < 140. q1 neuro checks. cont prophylactic AED. will hold SQH. Resp: KENN Cards: increase lisinopril. added hydralazine PRN GI: NPO. aspiration precautions. GI PPx Renal: monitor I&O. Maintain eunatremia ID: KENN Heme: SCDs for ppx ; hep sq on hold as per NSGY, hep sq should be on hold indefinitely. d/w NSGY the role of dvt ppx in pt's such as mr. carrera based on 2016 neurocritical care society guidelines and that guidelines recommend pharmacoprophylaxis within 24hrs post procedure. In this case, we waited 48hrs to start pharmacoprophylaxis. After our discussion, nsgy preferred to maintain pt off any anticoagulants. prognosis guarded Jose Helton MD CCU Objective - Vital Signs / Intake & Output Vital Signs (Last 4 hours): Vital Signs Pulse Resp BP Pulse Ox 08/05/16 07:01 89 21 170/74 H 96 08/05/16 07:00 84 21 95 08/05/16 06:00 83 15 96 08/05/16 05:59 84 20 160/70 H 95 08/05/16 05:00 86 17 95 08/05/16 04:59 84 23 155/80 H 95 Intake and Output (Last 8hrs): Intake & Output 08/04/16 08/05/16 08/05/16 22:59 06:59 14:59 Intake Total 3350 1125 125 Output Total 2450 1320 60 Balance 900 -195 65 Intake: Intake, IV Amount 3150 1125 125 Left Antecubital 500 1000 125 Left Forearm 700 Left Hand Medial Port 250 Left Hand Proximal Port 225 Right Hand Proximal Port 1475 125 Oral 200 0 Tube Feeding 0 Output: Drainage 0 Right Parietal 0 Urine 2450 1320 60 Urethral (Devlin) 2450 1320 60 Other: # Bowel Movements 0 0 - Medications Active Medications: Active Medications Generic Name Dose Route Start Last Admin Trade Name Freq PRN Reason Stop Dose Admin Artificial Tears 1 ml 07/31/16 05:15 08/05/16 04:53 Artificial Tears OD 1 drp Q4H [facility] Administration Famotidine 20 mg 08/05/16 10:00 Pepcid IVP DAILY GORDO Hydralazine HCl 10 mg 08/04/16 18:30 08/04/16 19:58 Apresoline IVP 10 mg Q6H PRN Administration Systolic Blood Pressure Levetiracetam 500 mg/ Sodium 105 mls @ 420 mls/hr 08/04/16 18:00 08/05/16 05: 06 Chloride IVPB 420 mls/hr Q12H [facility] Administration Sodium Chloride 1,000 mls @ 125 mls/hr 08/04/16 18:31 08/05/16 03:20 Sodium Chloride 0.9% IV 125 mls/hr .Q8H [facility] Administration Insulin Human Regular 0 unit 07/31/16 12:00 08/05/16 05:06 Novolin R SC Not Given Q6H [facility] Protocol Latanoprost 0 ml 07/31/16 22:00 08/04/16 21:17 Xalatan Opht OD 1 ml HS GORDO Administration Lisinopril 20 mg 08/04/16 18:32 Zestril PO DAILY GORDO Sodium Chloride 2 gm 08/03/16 11:15 08/05/16 03:20 Sodium Chloride Tab PO 2 gm Q8H [facility] Administration Timolol Maleate 0 drop 07/31/16 11:15 08/04/16 09:45 Timoptic 0.5% Ophth Soln OD 1 drop DAILY GORDO Administration - Patient Studies Lab Studies: Lab Studies 08/05/16 08/05/16 08/05/16 Range/Units 06:21 06:21 06:21 WBC 10.0 (4.8-10.8) K/uL RBC 4.04 L (4.40-5.90) Mil/uL Hgb 10.8 L (12.0-18.0) g/dL Hct 32.6 L (35.0-51.0) % MCV 80.6 D (80.0-94.0) fL MCH 26.8 L (27.0-31.0) pg MCHC 33.2 (33.0-37.0) g/dL RDW 14.2 (11.5-14.5) % Plt Count 201 (130-400) K/uL MPV 8.7 (7.2-11.7) fL Neut % (Auto) 69.2 (50.0-75.0) % Lymph % (Auto) 18.0 L (20.0-40.0) % [place] % (Auto) 9.6 (0.0-10.0) % Eos % (Auto) 2.8 (0.0-4.0) % Baso % (Auto) 0.4 (0.0-2.0) % Neut # 6.9 (1.8-7.0) K/uL Lymph # 1.8 (1.0-4.3) K/uL [place] # 1.0 H (0.0-0.8) K/uL Eos # 0.3 (0.0-0.7) K/uL Baso # 0.0 (0.0-0.2) K/uL Sodium 131 L (132-148) mmol/L Potassium 3.6 (3.6-5.2) mmol/L Chloride 100 (98-107) mmol/L Carbon Dioxide 19 L (22-30) mmol/L Anion Gap 16 (10-20) BUN 8 L (9-20) mg/dL Creatinine 0.7 L (0.8-1.5) MG/DL Est GFR ( Amer) > 60 Est GFR (Non-Af Amer) > 60 POC Glucose (mg/dL) (65-110) mg/dL Random Glucose 106 (75-110) mg/dL Calcium 8.1 L (8.6-10.4) mg/dl Phosphorus 3.2 (2.5-4.5) mg/dL Magnesium 2.0 (1.6-2.3) mg/dL Total Bilirubin 1.0 (0.2-1.3) mg/dL AST 49 (17-59) U/L ALT 56 (21-72) U/L Alkaline Phosphatase 103 (38-126) U/L C-React Prot High Sens > 15.00 H (1.00-3.00) mg/L Total Protein 6.4 (6.3-8.3) g/dL Albumin 3.5 (3.5-5.0) g/dL Globulin 2.9 (2.2-3.9) gm/dL Albumin/Globulin Ratio 1.2 (1.0-2.1) 08/05/16 08/04/16 08/04/16 Range/Units 06:14 23:25 22:24 WBC (4.8-10.8) K/uL RBC (4.40-5.90) Mil/uL Hgb (12.0-18.0) g/dL Hct (35.0-51.0) % MCV (80.0-94.0) fL MCH (27.0-31.0) pg MCHC (33.0-37.0) g/dL RDW (11.5-14.5) % Plt Count (130-400) K/uL MPV (7.2-11.7) fL Neut % (Auto) (50.0-75.0) % Lymph % (Auto) (20.0-40.0) % [place] % (Auto) (0.0-10.0) % Eos % (Auto) (0.0-4.0) % Baso % (Auto) (0.0-2.0) % Neut # (1.8-7.0) K/uL Lymph # (1.0-4.3) K/uL [place] # (0.0-0.8) K/uL Eos # (0.0-0.7) K/uL Baso # (0.0-0.2) K/uL Sodium 131 L (132-148) mmol/L Potassium 3.6 (3.6-5.2) mmol/L Chloride 100 (98-107) mmol/L Carbon Dioxide 24 (22-30) mmol/L Anion Gap 11 (10-20) BUN 7 L (9-20) mg/dL Creatinine 0.7 L (0.8-1.5) MG/DL Est GFR ( Amer) > 60 Est GFR (Non-Af Amer) > 60 POC Glucose (mg/dL) 112 H 125 H (65-110) mg/dL Random Glucose 102 (75-110) mg/dL Calcium 8.0 L (8.6-10.4) mg/dl Phosphorus (2.5-4.5) mg/dL Magnesium (1.6-2.3) mg/dL Total Bilirubin (0.2-1.3) mg/dL AST (17-59) U/L ALT (21-72) U/L Alkaline Phosphatase (38-126) U/L C-React Prot High Sens (1.00-3.00) mg/L Total Protein (6.3-8.3) g/dL Albumin (3.5-5.0) g/dL Globulin (2.2-3.9) gm/dL Albumin/Globulin Ratio (1.0-2.1) 08/04/16 08/04/16 08/04/16 Range/Units 22:20 21:43 17:04 WBC (4.8-10.8) K/uL RBC (4.40-5.90) Mil/uL Hgb (12.0-18.0) g/dL Hct (35.0-51.0) % MCV (80.0-94.0) fL MCH (27.0-31.0) pg MCHC (33.0-37.0) g/dL RDW (11.5-14.5) % Plt Count (130-400) K/uL MPV (7.2-11.7) fL Neut % (Auto) (50.0-75.0) % Lymph % (Auto) (20.0-40.0) % [place] % (Auto) (0.0-10.0) % Eos % (Auto) (0.0-4.0) % Baso % (Auto) (0.0-2.0) % Neut # (1.8-7.0) K/uL Lymph # (1.0-4.3) K/uL [place] # (0.0-0.8) K/uL Eos # (0.0-0.7) K/uL Baso # (0.0-0.2) K/uL Sodium Cancelled (132-148) mmol/L Potassium Cancelled (3.6-5.2) mmol/L Chloride Cancelled (98-107) mmol/L Carbon Dioxide Cancelled (22-30) mmol/L Anion Gap Cancelled (10-20) BUN Cancelled (9-20) mg/dL Creatinine Cancelled (0.8-1.5) MG/DL Est GFR ( Amer) Cancelled Est GFR (Non-Af Amer) Cancelled POC Glucose (mg/dL) 104 118 H (65-110) mg/dL Random Glucose Cancelled (75-110) mg/dL Calcium Cancelled (8.6-10.4) mg/dl Phosphorus (2.5-4.5) mg/dL Magnesium (1.6-2.3) mg/dL Total Bilirubin (0.2-1.3) mg/dL AST (17-59) U/L ALT (21-72) U/L Alkaline Phosphatase (38-126) U/L C-React Prot High Sens (1.00-3.00) mg/L Total Protein (6.3-8.3) g/dL Albumin (3.5-5.0) g/dL Globulin (2.2-3.9) gm/dL Albumin/Globulin Ratio (1.0-2.1) 08/04/16 08/04/16 08/04/16 Range/Units 12:22 08:17 06:52 WBC 7.9 (4.8-10.8) K/uL RBC 4.00 L (4.40-5.90) Mil/uL Hgb 10.8 L (12.0-18.0) g/dL Hct 33.3 L (35.0-51.0) % MCV 83.2 D (80.0-94.0) fL MCH 26.9 L (27.0-31.0) pg MCHC 32.3 L (33.0-37.0) g/dL RDW 14.4 (11.5-14.5) % Plt Count 133 (130-400) K/uL MPV 8.9 (7.2-11.7) fL Neut % (Auto) 63.4 (50.0-75.0) % Lymph % (Auto) 25.3 (20.0-40.0) % [place] % (Auto) 7.5 (0.0-10.0) % Eos % (Auto) 2.8 (0.0-4.0) % Baso % (Auto) 1.0 (0.0-2.0) % Neut # 5.0 (1.8-7.0) K/uL Lymph # 2.0 (1.0-4.3) K/uL [place] # 0.6 (0.0-0.8) K/uL Eos # 0.2 (0.0-0.7) K/uL Baso # 0.1 (0.0-0.2) K/uL Sodium 132 (132-148) mmol/L Potassium 4.4 (3.6-5.2) mmol/L Chloride 100 (98-107) mmol/L Carbon Dioxide 20 L (22-30) mmol/L Anion Gap 16 (10-20) BUN 9 (9-20) mg/dL Creatinine 0.8 (0.8-1.5) MG/DL Est GFR ( Amer) > 60 Est GFR (Non-Af Amer) > 60 POC Glucose (mg/dL) 135 H (65-110) mg/dL Random Glucose 114 H (75-110) mg/dL Calcium 8.2 L (8.6-10.4) mg/dl Phosphorus 3.5 (2.5-4.5) mg/dL Magnesium 2.0 (1.6-2.3) mg/dL Total Bilirubin 0.9 (0.2-1.3) mg/dL AST 40 (17-59) U/L ALT 36 (21-72) U/L Alkaline Phosphatase 85 (38-126) U/L C-React Prot High Sens (1.00-3.00) mg/L Total Protein 6.6 (6.3-8.3) g/dL Albumin 3.4 L (3.5-5.0) g/dL Globulin 3.2 (2.2-3.9) gm/dL Albumin/Globulin Ratio 1.0 (1.0-2.1) Laboratory Results - last 24 hr 08/04/16 08/04/16 08/04/16 06:52 08:17 12:22 WBC 7.9 RBC 4.00 L Hgb 10.8 L Hct 33.3 L MCV 83.2 D MCH 26.9 L MCHC 32.3 L RDW 14.4 Plt Count 133 MPV 8.9 Neut % (Auto) 63.4 Lymph % (Auto) 25.3 M[place]och % (Auto) 7.5 Eos % (Auto) 2.8 Baso % (Auto) 1.0 Neut # 5.0 Lymph # 2.0 [place]och # 0.6 Eos # 0.2 Baso # 0.1 Sodium 132 Potassium 4.4 Chloride 100 Carbon Dioxide 20 L Anion Gap 16 BUN 9 Creatinine 0.8 Est GFR ( Amer) > 60 Est GFR (Non-Af Amer) > 60 POC Glucose (mg/dL) 135 H Random Glucose 114 H Calcium 8.2 L Phosphorus 3.5 Magnesium 2.0 Total Bilirubin 0.9 AST 40 ALT 36 Alkaline Phosphatase 85 C-React Prot High Sens Total Protein 6.6 Albumin 3.4 L Globulin 3.2 Albumin/Globulin Ratio 1.0 08/04/16 08/04/16 08/04/16 17:04 21:43 22:20 WBC RBC Hgb Hct MCV MCH MCHC RDW Plt Count MPV Neut % (Auto) Lymph % (Auto) [place] % (Auto) Eos % (Auto) Baso % (Auto) Neut # Lymph # [place] # Eos # Baso # Sodium Cancelled Potassium Cancelled Chloride Cancelled Carbon Dioxide Cancelled Anion Gap Cancelled BUN Cancelled Creatinine Cancelled Est GFR ( Amer) Cancelled Est GFR (Non-Af Amer) Cancelled POC Glucose (mg/dL) 118 H 104 Random Glucose Cancelled Calcium Cancelled Phosphorus Magnesium Total Bilirubin AST ALT Alkaline Phosphatase C-React Prot High Sens Total Protein Albumin Globulin Albumin/Globulin Ratio 08/04/16 08/04/16 08/05/16 22:24 23:25 06:14 WBC RBC Hgb Hct MCV MCH MCHC RDW Plt Count MPV Neut % (Auto) Lymph % (Auto) [place] % (Auto) Eos % (Auto) Baso % (Auto) Neut # Lymph # [place] # Eos # Baso # Sodium 131 L Potassium 3.6 Chloride 100 Carbon Dioxide 24 Anion Gap 11 BUN 7 L Creatinine 0.7 L Est GFR ( Amer) > 60 Est GFR (Non-Af Amer) > 60 POC Glucose (mg/dL) 125 H 112 H Random Glucose 102 Calcium 8.0 L Phosphorus Magnesium Total Bilirubin AST ALT Alkaline Phosphatase C-React Prot High Sens Total Protein Albumin Globulin Albumin/Globulin Ratio 08/05/16 08/05/16 08/05/16 06:21 06:21 06:21 WBC 10.0 RBC 4.04 L Hgb 10.8 L Hct 32.6 L MCV 80.6 D MCH 26.8 L MCHC 33.2 RDW 14.2 Plt Count 201 MPV 8.7 Neut % (Auto) 69.2 Lymph % (Auto) 18.0 L [place]och % (Auto) 9.6 Eos % (Auto) 2.8 Baso % (Auto) 0.4 Neut # 6.9 Lymph # 1.8 [place] # 1.0 H Eos # 0.3 Baso # 0.0 Sodium 131 L Potassium 3.6 Chloride 100 Carbon Dioxide 19 L Anion Gap 16 BUN 8 L Creatinine 0.7 L Est GFR ( Amer) > 60 Est GFR (Non-Af Amer) > 60 POC Glucose (mg/dL) Random Glucose 106 Calcium 8.1 L Phosphorus 3.2 Magnesium 2.0 Total Bilirubin 1.0 AST 49 ALT 56 Alkaline Phosphatase 103 C-React Prot High Sens > 15.00 H Total Protein 6.4 Albumin 3.5 Globulin 2.9 Albumin/Globulin Ratio 1.2 Fingerstick Blood Sugar Results: 112 Review of Systems - Review of Systems Systems not reviewed;Unavailable: Acuity of Condition Critical Care Progress Note - Nutrition Nutrition: Nutrition Category Date Time Status NPO Diet [DIET] Diets 08/04/16 Breakfast Active
--- NOTE | 2016-08-05 09:03 | RAD ---
HISTORY: NGT placement (2nd time) portable study 19:55. COMPARISON: August 04, 2016. 18:50. FINDINGS: LUNGS: No active pulmonary disease. PLEURA: No significant pleural effusion identified, no pneumothorax apparent. CARDIOVASCULAR: No radiographic findings to suggest acute or significant cardiovascular disease. OSSEOUS STRUCTURES: No significant abnormalities. VISUALIZED UPPER ABDOMEN: Normal. OTHER FINDINGS: Nasogastric tube coiled in good position in the stomach. IMPRESSION: No active disease. Satisfactory position of nasogastric tube.
[2016-08-05] MEDS ORDERED: cefTRIAXone IV 1 gm in Dextros 50 ML IVPB ONE (09:13)
[2016-08-05] MEDS ORDERED: Thrombin Topical 20,000 Intl Units Spray Kit TOP ONE (09:13)
[2016-08-05] MEDS ORDERED: Lidocaine 2% w Epi 1:100,000 Inj IJ ONE (09:13)
[2016-08-05] MEDS ORDERED: Sodium Chloride 0.9% 1,000 ML IV ONE (09:50)
[2016-08-05] MEDS ORDERED: Propofol 10 mg/ml Inj (20 ML) ONE (09:55)
[2016-08-05] MEDS ORDERED: Rocuronium 10 mg/ml (10 ml) ONE (09:56)
[2016-08-05] MEDS ORDERED: Phenylephrine 10 mg/ml Inj ONE (10:24)
[2016-08-05] MEDS: Bacitracin 50,000 UNIT in Sodium Chloride 0.9% Irrig 1,000 ML IR SCH ×2 (10:40→10:56)
[2016-08-05] MEDS: Thrombin Topical 5,000 IU Spray Kit ONE ×2 (10:48→12:49)
[2016-08-05] MEDS: Absorbable Gelatin Sponge Size 100 ONE ×2 (10:48→13:00)
--- NOTE | 2016-08-05 11:00 | RAD ---
HISTORY: NG tube placement. Portable study 18:50. COMPARISON: August 04, 2016. 17:19. FINDINGS: LUNGS: No active pulmonary disease. PLEURA: No significant pleural effusion identified, no pneumothorax apparent. CARDIOVASCULAR: No radiographic findings to suggest acute or significant cardiovascular disease. OSSEOUS STRUCTURES: No significant abnormalities. VISUALIZED UPPER ABDOMEN: Normal. OTHER FINDINGS: Nasogastric tube coiled in the stomach in good position. IMPRESSION: Satisfactory position of recently placed nasogastric tube.
--- NOTE | 2016-08-05 11:00 | RAD ---
HISTORY: Fever. COMPARISON: No prior. FINDINGS: LUNGS: No active pulmonary disease. PLEURA: No significant pleural effusion identified, no pneumothorax apparent. CARDIOVASCULAR: No radiographic findings to suggest acute or significant cardiovascular disease. OSSEOUS STRUCTURES: No significant abnormalities. VISUALIZED UPPER ABDOMEN: Normal. OTHER FINDINGS: None. IMPRESSION: No active disease.
[2016-08-05] MEDS ORDERED: Neostigmine Methylsulfate 3mg/3ml Syringe IV ONE (11:05)
[2016-08-05] MEDS ORDERED: Lactated Ringer's 1,000 ML IV ONE (11:38)
[2016-08-05] MEDS ORDERED: Lidocaine Hydrochloride 5 ML INJ ONE (11:41)
[2016-08-05] MEDS: Bacitracin Ointment 30 GM TUBE ONE ×2 (11:52→12:59)
[2016-08-05] MEDS ORDERED: Acetaminophen-Codeine 300/30 mg Tab PO PRN (14:25)
[2016-08-05] MEDS: Labetalol 25mg/5ml Syringe IVP PRN (15:50)
--- NOTE | 2016-08-05 16:03 | CP.PCM.PN ---
Subjective - Date & Time of Evaluation Date of Evaluation: 08/05/16 Time of Evaluation: 13:00 - Subjective Subjective: Mr. Renee Lopez was seen and examined today in the ICU with his children at bedside. He underwent a second hematoma evacuation this morning and seems to be slightly improved. He was moving all extremities and following simple commands. Objective - Vital Signs/Intake and Output Vital Signs (last 24 hours): Temp Pulse Resp BP Pulse Ox 97.6 F 96 H 14 163/80 H 98 08/05/16 12:30 08/05/16 14:16 08/05/16 14:16 08/05/16 14:16 08/05/16 14:16 Intake and Output: 08/05/16 08/05/16 06:59 18:59 Intake Total 3000 750 Output Total 2920 760 Balance 80 -10 - Medications Medications: Current Medications Famotidine (Pepcid) 20 mg IVP DAILY [facility] Last Admin: 08/05/16 12:56 Dose: 20 mg Hydralazine HCl (Apresoline) 10 mg IVP Q6H PRN PRN Reason: Systolic Blood Pressure Last Admin: 08/05/16 12:57 Dose: 10 mg Levetiracetam 500 mg/ Sodium (Chloride) 105 mls @ 420 mls/hr IVPB Q12H [facility] Last Admin: 08/05/16 05:06 Dose: 420 mls/hr Sodium Chloride (Sodium Chloride 0.9%) 1,000 mls @ 125 mls/hr IV .Q8H [facility] Last Admin: 08/05/16 12:43 Dose: 125 mls/hr Insulin Human Regular (Novolin R) 0 unit SC Q6H GORDO PRN Reason: Protocol Last Admin: 08/05/16 12:45 Dose: Not Given Labetalol HCl (Trandate) 10 mg IVP Q1 PRN PRN Reason: SBP> 160 mm Hg Last Admin: 08/05/16 15:50 Dose: 10 mg Latanoprost (Xalatan Opht) 0 ml OD HS [facility] Last Admin: 08/04/16 21:17 Dose: 1 ml Lisinopril (Zestril) 20 mg PO DAILY [facility] Last Admin: 08/05/16 12:56 Dose: 20 mg Timolol Maleate (Timoptic 0.5% Ophth Soln) 0 drop OD DAILY [facility] Last Admin: 08/05/16 12:59 Dose: 1 drop - Labs Labs: 08/05/16 06:21 08/05/16 06:21 PT 11.2 SECONDS (9.7-12.2) 07/30/16 23:18 INR 1.0 07/30/16 23:18 APTT 29 SECONDS (21-34) 07/30/16 23:18 - Neurological Exam Additional comments: Confused, dysarthric, but able to answer simple questions. Eyes are medially deviated and forced inward. But, he can break midline with the right eye. Moves all extremities, slightly weaker on the left upper and lower extremity. Assessment and Plan (1) Subdural hemorrhage following injury Assessment & Plan: Recent second evacuation. The patient is stable. Will continue following along with the ICU team and neurosurgery. Continue Keppra for seizure prophylaxis. Q1 hour neuro-checks. Avoid opiates to maintain neuro exam for 24 hours. Keep head elevated above [address] head in the AM to evaluate post-surgical status. Status: Acute
--- NOTE | 2016-08-05 18:13 | CP.PCM.PN ---
Subjective - Date & Time of Evaluation Date of Evaluation: 08/05/16 Time of Evaluation: 16:00 - Subjective Subjective: Medical Attending Note: Follow-up: Subdural Hemorrhage Patient seen, examined, and family present at bedside s/p OR for craniotomy this morning. Family previously met with neurologist prior to my arrival. Patient seen moving all extremities, arousable, has drain present. Discussed with ICU; neurosurgery prefers off anticoagulation. I discussed with patient, patient cannot be on "sleeping pills" and "pain medications". Objective - Vital Signs/Intake and Output Vital Signs (last 24 hours): Temp Pulse Resp BP Pulse Ox 97.6 F 96 H 14 163/80 H 98 08/05/16 12:30 08/05/16 14:16 08/05/16 14:16 08/05/16 14:16 08/05/16 14:16 Intake and Output: 08/05/16 08/05/16 06:59 18:59 Intake Total 3000 750 Output Total 2920 760 Balance 80 -10 - Medications Medications: Current Medications Famotidine (Pepcid) 20 mg IVP DAILY [facility] Last Admin: 08/05/16 12:56 Dose: 20 mg Hydralazine HCl (Apresoline) 10 mg IVP Q6H PRN PRN Reason: Systolic Blood Pressure Last Admin: 08/05/16 12:57 Dose: 10 mg Levetiracetam 500 mg/ Sodium (Chloride) 105 mls @ 420 mls/hr IVPB Q12H [facility] Last Admin: 08/05/16 18:10 Dose: 420 mls/hr Sodium Chloride (Sodium Chloride 0.9%) 1,000 mls @ 125 mls/hr IV .Q8H [facility] Last Admin: 08/05/16 12:43 Dose: 125 mls/hr Insulin Human Regular (Novolin R) 0 unit SC Q6H GORDO PRN Reason: Protocol Last Admin: 08/05/16 12:45 Dose: Not Given Labetalol HCl (Trandate) 10 mg IVP Q1 PRN PRN Reason: SBP> 160 mm Hg Last Admin: 08/05/16 15:50 Dose: 10 mg Latanoprost (Xalatan Opht) 0 ml OD HS [facility] Last Admin: 08/04/16 21:17 Dose: 1 ml Lisinopril (Zestril) 20 mg PO DAILY [facility] Last Admin: 08/05/16 12:56 Dose: 20 mg Timolol Maleate (Timoptic 0.5% Ophth Soln) 0 drop OD DAILY [facility] Last Admin: 08/05/16 12:59 Dose: 1 drop - Labs Labs: 08/05/16 06:21 08/05/16 06:21 PT 11.2 SECONDS (9.7-12.2) 07/30/16 23:18 INR 1.0 07/30/16 23:18 APTT 29 SECONDS (21-34) 07/30/16 23:18 - Constitutional Appears: Non-toxic, No Acute Distress - Head Exam Additional comments: drain present over right portion of scalp - Eye Exam Eye Exam: absent: Nystagmus, Scleral icterus Additional comments: left eye adduction (baseline) Difficult to assess right eye given patient shakes his head - ENT Exam ENT Exam: Mucous Membranes Dry - Respiratory Exam Respiratory Exam: Clear to Ausculation Bilateral, NORMAL BREATHING PATTERN. absent: Rales, Rhonchi, Wheezes - Cardiovascular Exam Cardiovascular Exam: REGULAR RHYTHM, +S1, +S2 - GI/Abdominal Exam GI & Abdominal Exam: Soft, Normal Bowel Sounds. absent: Distended, Firm, Guarding, Rigid, Tenderness, Rebound - Neurological Exam Neurological Exam: Awake Neuro motor strength exam: Left Upper Extremity: 4, Right Upper Extremity: 5, Left Lower Extremity: 5, Right Lower Extremity: 5 - Skin Skin Exam: Dry, Intact, Normal Color, Warm Assessment and Plan (1) Cerebral hemorrhage Status: Acute (2) Hypertension Status: Chronic (3) Diabetes Status: Chronic (4) Constipation Status: Chronic (5) Prophylactic measure Status: Acute - Assessment and Plan (Free Text) Assessment: (1) Cerebral hemorrhage Assessment & Plan: * Critical care: help appreciated * Neurosurgery: Dr. Bolden on board-->help appreciated * Neurology: Dr Bonner on board-->help appreciated * Head CT (07/30/16): CT Head without contrast: 1. The left orbit appears to be rotated 90 degrees to the right while the right orbit appears to be oriented normally. 2. 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 This results in severe mass effect on the underlying brain, including 1.4 cm of leftward midline shift and compression of the right lateral ventricle. Asymmetric enlargement of the right temporal horn suggestive of early entrapment. * Head CT (08/02/16): satisfactory postoperative status following craniotomy, evacuation of large extra-axial fluid collection on the right. No new intra- axial abnormalities. Improved edema, mass effect. No evidence of acute infarction. * Head CT (08/04/16) showed acute extra-axial hemorrhage with blood layering in the extra-axial space. Increase in sulcal effacement, mass effect and midline shift. There is no evidence of herniation. This follows removal of the surgical drain identified previously. * Keppra 500mg IVPB Q 12hours for seizure prophylaxis * POD 4: s/p Kyler hole and evacuation of subdural hemorrhage with [place] and David drain * POD 1 s/p craniotomy; drain present * Removal of drain on 08/03/16 * Sodium 2tabs PO Q 8 hours started--> monitor sodium * NS 125cc/hr; Sodium tablets * Per neurosurgery, prefers patient off anticoagulation * continue Neurochecks * No pain/no sedatives Status: Acute (2) Hypertension Assessment & Plan: * Lisinopril 20mg PO daily * NS 1S 125cc/hr * Monitor vitals signs Status: Chronic (3) Diabetes Assessment & Plan: [id number]: 5.9 Controlled Accuchecks Q6 hours Regular insulin sliding scale subq Q 6hours Status: Chronic (4) Prophylactic measure Assessment & Plan: Neurosurgery prefers patient off anticoagulation per my discussion with ICU today NGT tube Pepcid 20mg PO daily No benzos Seizure prophylaxis Blood cultures negative X 24 hours Status: Acute
[2016-08-05] MEDS: Latanoprost 2.5 ml Opht Soln OD SCH (21:51)
--- NOTE | 2016-08-05 22:18 | OP ---
PROCEDURE DATE: 08/05/2016 PREOPERATIVE DIAGNOSIS: Acute right subdural hematoma. POSTOPERATIVE DIAGNOSIS: Acute right subdural hematoma. PROCEDURE: Right frontotemporal craniotomy, evacuation of acute subdural hematoma. SURGEON: Gadiel Rose MD ANESTHESIA: General endotracheal. ESTIMATED BLOOD LOSS: 50 mL. COMPLICATIONS: None. JUSTIFICATION: The patient actually presented to the hospital approximately 5 days earlier with a ch ronic subacute subdural hematoma. This was successfully evacuated by my partner, Dr. Bolden. P ostoperative CAT scan showed excellent resolution of the subdural hematoma and his subdural drain was removed postop day 2. Apparently, that day without our knowledge, he was begun on heparin administr ation for DVT prophylaxis. Subsequently, over the following day, he became more and more lethargic. CT scan done last p.m. documented now an acute subdural hemorrhage with far more cortical compressio n and midline shift. The patient's family was recommended for him to undergo a craniotomy and evacua tion of this new acute subdural hematoma. The nature of this procedure, the rationale behind it, pot ential risks and complications were discussed with him at length. All questions were answered. They agreed. DESCRIPTION OF PROCEDURE: The patient was brought to the OR. The patient was intubated and anesthet ized. He was placed on the OR table in a supine position, head placed on the donut and turned eddie lly to the left and elevated. OR table also elevated and tilted to the left. The staple line was sc rubbed with alcohol. The uriel were removed. The entire area was then scrubbed, painted and drape d in the usual sterile fashion. The old incision was opened with the Metzenbaum. The sutures were cut. Self-retaining retractors we re placed. Skin bleeding controlled with Bovie cautery. Irrigation was performed to expose better t he preexisting bur hole. A #3 Lenox was used to deflect the dura off the inner table. The cranio tome was then used to elevate this flap. A little bit of epidural clot was noticed also and suctione d out. The dura was then opened in a semicircular fashion with flap based inferiorly; tack-up suture s were placed. Immediately encountered was a significant amount of solid clot in the subdural space. This was removed with some Omani forceps. A specimen was sent. The subdural space was then copi ously irrigated with antibiotic solution. A little bit of membrane was visualized. This was coagula dorian and opened and the membrane leaflet coagulated back as far as possible down to the area of seeing normal cortical surface. At this point, irrigation was performed in a 360 degree fashion under the calvarium. The irrigant returned clear in all spheres accept a little bit of bleeding posteriorly. This was found to be from some of the posterior membrane, which was controlled with bipolar cautery. Once again, irrigation was performed until it was completely clear, and furthermore, the subdural ar ea was observed for several minutes to ensure that hemostasis was complete. In fact, while this was going on, I made another stab incision behind and superior to the posterior bur hole. A red rubber c atheter with some additional holes cut into it was then passed out a separate stab incision. The red rubber catheter was then placed in the subdural space which again remained dry. A little bit of liquid thrombin was poured into the space at this point in time. The dura was then reapproximate d using interrupted Nurolon. A solid piece of Gelfoam then placed in the epidural space and 3 tack-u p sutures were placed in the surrounding space to prevent any epidural bleeding. At this point, the subdural space was filled with fluid through the catheter. The bone flap replaced using 3 cranial fi x plates with the drain headed out freely through the posterior bur hole. The wound irrigated with a ntibiotic solution and some of the temporalis was reapproximated with Vicryl. The galea was closed u sing interrupted inverted 3-0 Vicryl stitch. The skin closed with uriel, bacitracin ointment and a self-adhering dressing was placed. Subdural drain was connected to a passive Devlin system and was d raining minimal pinkish fluid at the conclusion of the procedure. The patient was then aroused from anesthesia, extubated easily, noted to be moving all [address] to the recovery room. Counts were correct. No complications. Gadiel Rose MD cc: 131 TT: 08/05/2016 22:17:39 mn
[2016-08-06] MEDS: (Novolin R) Insulin Human Regular 100 units/ml vial SC SCH ×4 (00:25→19:43)
[2016-08-06] MEDS: Sodium Chloride 0.9% 1,000 ML IV SCH ×4 (02:30→18:30)
[2016-08-06] MEDS: levETIRAcetam 500 MG in Sodium Chloride 0.9% 100 ML IVPB SCH ×2 (05:24→18:35)
[2016-08-06 06:39] LABS: CHLORIDE 100 mmol/L (98-107); POTASSIUM 3.6 mmol/L (3.6-5.2); SODIUM 130 mmol/L (132-148)
[2016-08-06 06:42] LABS: BLOOD UREA NITROGEN 8 mg/dL (9-20); CARBON DIOXIDE 19 mmol/L (22-30); GFR AFRICAN-AMERICAN > 60; GLUCOSE,RANDOM 114 mg/dL (75-110)
[2016-08-06 06:43] LABS: CALCIUM 7.7 mg/dl (8.6-10.4); MAGNESIUM 2.1 mg/dL (1.6-2.3); PHOSPHOROUS 2.7 mg/dL (2.5-4.5)
[2016-08-06 06:53] LABS: BASO % 0.1 % (0.0-2.0); EOS # 0.1 K/uL (0.0-0.7); EOS % 1.1 % (0.0-4.0); HEMATOCRIT 29.8 % (35.0-51.0); LYMPH # 1.6 K/uL (1.0-4.3); LYMPH % 12.9 % (20.0-40.0); MEAN CELL VOLUME 79.8 fL (80.0-94.0); MEAN CORPUSCULAR HEMOGLOBIN 26.8 pg (27.0-31.0); MEAN CORPUSCULAR HGB CONC 33.6 g/dL (33.0-37.0); MEAN PLATELET VOLUME 8.6 fL (7.2-11.7); MONO # 1.3 K/uL (0.0-0.8); MONO % 10.5 % (0.0-10.0); RED CELL DISTRIBUTION WIDTH 13.7 % (11.5-14.5); WHITE BLOOD COUNT 12.2 K/uL (4.8-10.8)
--- NOTE | 2016-08-06 07:34 | CP.CCUPN ---
CCU Subjective - Physician Review Subjective (Free Text): s/p R crani and SDH evac yesterday. arousable. lethargic as per family but moves all extremities spontaneously Afeb. VSS Gen: lethargic (Family translated) HEENT: R pupil sluggish; L adducted -- blind Neck: Supple COR: S1, S2, RRR, Resp: CTA b/l ABD: Soft, nt/nd, BS +ve Ext: no edema Neuro: lethargic. opens eyes to command. moves all extremities spont. Meds / Labs / Imaging reviewed independently as noted below. A/P: 75M with R tSDH acute / chronic s/p naomy hole evac, POD3, drain pulled yesterday. Now with interval increase in SDH with AMS and slight weakness LUE. D/w Neuro who d/w NSGY. Plan for OR this AM for crani and evac Neuro: no sedatives/hypnotics/anxiolytics. Mgmt per NSGY. strict bp control maintain SBP < 140. q1 neuro checks. cont prophylactic AED. will hold SQH. Resp: KENN Cards: increase lisinopril. added hydralazine PRN GI: Start NGT feeds. aspiration precautions. GI PPx Renal: monitor I&O. Maintain eunatremia ID: KENN Heme: SCDs for ppx ; hep sq on hold d/w family extensively. all questions answered to their satisfaction. prognosis guarded Jose Helton MD 08/06/16 14:04 CCU Objective - Vital Signs / Intake & Output Vital Signs (Last 4 hours): Vital Signs Pulse Resp BP Pulse Ox 08/06/16 06:17 92 H 29 H 150/75 08/06/16 06:00 94 H 23 08/06/16 05:47 96 H 30 H 150/77 95 08/06/16 05:17 96 H 28 H 144/78 08/06/16 05:00 92 H 27 H 08/06/16 04:46 92 H 24 146/72 08/06/16 04:17 89 26 H 149/71 95 08/06/16 04:00 95 H 27 H 95 08/06/16 03:46 92 H 21 145/78 95 Intake and Output (Last 8hrs): Intake & Output 08/05/16 08/06/16 08/06/16 22:59 06:59 14:59 Intake Total 1125 1000 Output Total 1265 760 Balance -140 240 Intake: Intake, IV Amount 1125 1000 Left Antecubital 1000 1000 Right Hand 125 Oral 0 0 Output: Drainage 0 55 Right Parietal 0 55 Urine 1265 705 Urethral (Devlin) 1265 705 Other: # Bowel Movements 0 0 - Medications Active Medications: Active Medications Generic Name Dose Route Start Last Admin Trade Name Freq PRN Reason Stop Dose Admin Famotidine 20 mg 08/05/16 10:00 08/05/16 12:56 Pepcid IVP 20 mg DAILY GORDO Administration Hydralazine HCl 10 mg 08/04/16 18:30 08/05/16 12:57 Apresoline IVP 10 mg Q6H PRN Administration Systolic Blood Pressure Levetiracetam 500 mg/ Sodium 105 mls @ 420 mls/hr 08/04/16 18:00 08/06/16 05: 24 Chloride IVPB 420 mls/hr Q12H GORDO Administration Sodium Chloride 1,000 mls @ 125 mls/hr 08/04/16 18:31 08/06/16 02:30 Sodium Chloride 0.9% IV 125 mls/hr .Q8H GORDO Administration Insulin Human Regular 0 unit 07/31/16 12:00 08/06/16 05:23 Novolin R SC Not Given Q6H GORDO Protocol Labetalol HCl 10 mg 08/05/16 14:59 08/05/16 15:50 Trandate IVP 10 mg Q1 PRN Administration SBP> 160 mm Hg Latanoprost 0 ml 07/31/16 22:00 08/05/16 21:51 Xalatan Opht OD 1 ml HS GORDO Administration Lisinopril 20 mg 08/04/16 18:32 08/05/16 12:56 Zestril PO 20 mg DAILY GORDO Administration Timolol Maleate 0 drop 07/31/16 11:15 08/05/16 12:59 Timoptic 0.5% Ophth Soln OD 1 drop DAILY GORDO Administration - Patient Studies Lab Studies: Microbiology Studies 08/04/16 18:00 Blood Culture - Preliminary Blood NO GROWTH AFTER 24 HOURS 08/04/16 17:45 Blood Culture - Preliminary Blood NO GROWTH AFTER 24 HOURS Lab Studies 05/29/17 05/29/17 05/29/17 Range/Units 06:25 06:25 05:22 WBC 12.2 H (4.8-10.8) K/uL RBC 3.73 L (4.40-5.90) Mil/uL Hgb 10.0 L (12.0-18.0) g/dL Hct 29.8 L (35.0-51.0) % MCV 79.8 L (80.0-94.0) fL MCH 26.8 L (27.0-31.0) pg MCHC 33.6 (33.0-37.0) g/dL RDW 13.7 (11.5-14.5) % Plt Count 227 (130-400) K/uL MPV 8.6 (7.2-11.7) fL Neut % (Auto) 75.4 H (50.0-75.0) % Lymph % (Auto) 12.9 L (20.0-40.0) % Wallace % (Auto) 10.5 H (0.0-10.0) % Eos % (Auto) 1.1 (0.0-4.0) % Baso % (Auto) 0.1 (0.0-2.0) % Neut # 9.2 H (1.8-7.0) K/uL Lymph # 1.6 (1.0-4.3) K/uL Wallace # 1.3 H (0.0-0.8) K/uL Eos # 0.1 (0.0-0.7) K/uL Baso # 0.0 (0.0-0.2) K/uL ESR (0-15) mm/hr Sodium 130 L (132-148) mmol/L Potassium 3.6 (3.6-5.2) mmol/L Chloride 100 (98-107) mmol/L Carbon Dioxide 19 L (22-30) mmol/L Anion Gap 15 (10-20) BUN 8 L (9-20) mg/dL Creatinine 0.6 L (0.8-1.5) MG/DL Est GFR ( Amer) > 60 Est GFR (Non-Af Amer) > 60 POC Glucose (mg/dL) 128 H (65-110) mg/dL Random Glucose 114 H (75-110) mg/dL Calcium 7.7 L (8.6-10.4) mg/dl Phosphorus 2.7 (2.5-4.5) mg/dL Magnesium 2.1 (1.6-2.3) mg/dL Blood Type Antibody Screen 08/06/16 08/05/16 08/05/16 Range/Units 00:14 18:15 12:33 WBC (4.8-10.8) K/uL RBC (4.40-5.90) Mil/uL Hgb (12.0-18.0) g/dL Hct (35.0-51.0) % MCV (80.0-94.0) fL MCH (27.0-31.0) pg MCHC (33.0-37.0) g/dL RDW (11.5-14.5) % Plt Count (130-400) K/uL MPV (7.2-11.7) fL Neut % (Auto) (50.0-75.0) % Lymph % (Auto) (20.0-40.0) % Wallace % (Auto) (0.0-10.0) % Eos % (Auto) (0.0-4.0) % Baso % (Auto) (0.0-2.0) % Neut # (1.8-7.0) K/uL Lymph # (1.0-4.3) K/uL Wallace # (0.0-0.8) K/uL Eos # (0.0-0.7) K/uL Baso # (0.0-0.2) K/uL ESR (0-15) mm/hr Sodium (132-148) mmol/L Potassium (3.6-5.2) mmol/L Chloride (98-107) mmol/L Carbon Dioxide (22-30) mmol/L Anion Gap (10-20) BUN (9-20) mg/dL Creatinine (0.8-1.5) MG/DL Est GFR ( Amer) Est GFR (Non-Af Amer) POC Glucose (mg/dL) 116 H 122 H 137 H (65-110) mg/dL Random Glucose (75-110) mg/dL Calcium (8.6-10.4) mg/dl Phosphorus (2.5-4.5) mg/dL Magnesium (1.6-2.3) mg/dL Blood Type Antibody Screen 08/05/16 08/05/16 Range/Units 09:46 06:21 WBC (4.8-10.8) K/uL RBC (4.40-5.90) Mil/uL Hgb (12.0-18.0) g/dL Hct (35.0-51.0) % MCV (80.0-94.0) fL MCH (27.0-31.0) pg MCHC (33.0-37.0) g/dL RDW (11.5-14.5) % Plt Count (130-400) K/uL MPV (7.2-11.7) fL Neut % (Auto) (50.0-75.0) % Lymph % (Auto) (20.0-40.0) % Wallace % (Auto) (0.0-10.0) % Eos % (Auto) (0.0-4.0) % Baso % (Auto) (0.0-2.0) % Neut # (1.8-7.0) K/uL Lymph # (1.0-4.3) K/uL Wallace # (0.0-0.8) K/uL Eos # (0.0-0.7) K/uL Baso # (0.0-0.2) K/uL ESR 70 H (0-15) mm/hr Sodium (132-148) mmol/L Potassium (3.6-5.2) mmol/L Chloride (98-107) mmol/L Carbon Dioxide (22-30) mmol/L Anion Gap (10-20) BUN (9-20) mg/dL Creatinine (0.8-1.5) MG/DL Est GFR ( Amer) Est GFR (Non-Af Amer) POC Glucose (mg/dL) (65-110) mg/dL Random Glucose (75-110) mg/dL Calcium (8.6-10.4) mg/dl Phosphorus (2.5-4.5) mg/dL Magnesium (1.6-2.3) mg/dL Blood Type B POSITIVE Antibody Screen Negative Laboratory Results - last 24 hr 08/05/16 08/05/16 08/05/16 06:21 09:46 12:33 WBC RBC Hgb Hct MCV MCH MCHC RDW Plt Count MPV Neut % (Auto) Lymph % (Auto) Wallace % (Auto) Eos % (Auto) Baso % (Auto) Neut # Lymph # Wallace # Eos # Baso # ESR 70 H Sodium Potassium Chloride Carbon Dioxide Anion Gap BUN Creatinine Est GFR ( Amer) Est GFR (Non-Af Amer) POC Glucose (mg/dL) 137 H Random Glucose Calcium Phosphorus Magnesium Blood Type B POSITIVE Antibody Screen Negative 08/05/16 08/06/16 08/06/16 18:15 00:14 05:22 WBC RBC Hgb Hct MCV MCH MCHC RDW Plt Count MPV Neut % (Auto) Lymph % (Auto) Wallace % (Auto) Eos % (Auto) Baso % (Auto) Neut # Lymph # Wallace # Eos # Baso # ESR Sodium Potassium Chloride Carbon Dioxide Anion Gap BUN Creatinine Est GFR ( Amer) Est GFR (Non-Af Amer) POC Glucose (mg/dL) 122 H 116 H 128 H Random Glucose Calcium Phosphorus Magnesium Blood Type Antibody Screen 08/06/16 08/06/16 06:25 06:25 WBC 12.2 H RBC 3.73 L Hgb 10.0 L Hct 29.8 L MCV 79.8 L MCH 26.8 L MCHC 33.6 RDW 13.7 Plt Count 227 MPV 8.6 Neut % (Auto) 75.4 H Lymph % (Auto) 12.9 L Wallace % (Auto) 10.5 H Eos % (Auto) 1.1 Baso % (Auto) 0.1 Neut # 9.2 H Lymph # 1.6 Wallace # 1.3 H Eos # 0.1 Baso # 0.0 ESR Sodium 130 L Potassium 3.6 Chloride 100 Carbon Dioxide 19 L Anion Gap 15 BUN 8 L Creatinine 0.6 L Est GFR ( Amer) > 60 Est GFR (Non-Af Amer) > 60 POC Glucose (mg/dL) Random Glucose 114 H Calcium 7.7 L Phosphorus 2.7 Magnesium 2.1 Blood Type Antibody Screen Fingerstick Blood Sugar Results: 128 Critical Care Progress Note - Nutrition Nutrition: Nutrition Category Date Time Status NPO Diet [DIET] Diets 08/04/16 Breakfast Active
--- NOTE | 2016-08-06 10:18 | CT ---
PROCEDURE: CT HEAD WITHOUT CONTRAST. HISTORY: Subdural hemorrhage COMPARISON: Multiple serial examinations preceding the most recent study: 08/04/2016. TECHNIQUE: Axial computed tomography images were obtained through the head/brain without intravenous contrast. Radiation dose: Total exam DLP = 1316.32 mGy-cm. This CT exam was performed using one or more of the following dose reduction techniques: Automated exposure control, adjustment of the mA and/or kV according to patient size, and/or use of iterative reconstruction technique. FINDINGS: HEMORRHAGE: Following recent surgery and placement of a drain in data the extra-axial fluid collection there has been decompression of the previously described fluid collection. Whereas on the previous study at the site of 1 of the naomy holes the thickness of the fluid measured 19.7 mm it now measures 9.6 mm. The drainage catheter appears to be in satisfactory position. BRAIN: Midline shift apparent on the prior study has improved considerably. No underlying acute territorial infarction or other pathologic process is noted. VENTRICLES: Unremarkable. No hydrocephalus. CALVARIUM: Unremarkable. PARANASAL SINUSES: Unremarkable as visualized. No significant inflammatory changes. MASTOID AIR CELLS: Unremarkable as visualized. No inflammatory changes. OTHER FINDINGS: None. IMPRESSION: Status post surgical intervention, placement of drainage catheter into the extra-axial space at the site of prior subdural hematoma edema, mass effect and midline shift have improved considerably. No new or significant findings identified
--- NOTE | 2016-08-06 10:51 | CP.PCM.PN ---
Subjective - Date & Time of Evaluation Date of Evaluation: 08/06/16 Time of Evaluation: 10:48 - Subjective Subjective: moving all ext very vigorously no eye openig no command following eyes both deviated medially as previous new CT looks quite good with sig resolution of acute blood,shift and mass effect P cont SD drainage d/w family Objective - Vital Signs/Intake and Output Vital Signs (last 24 hours): Temp Pulse Resp BP Pulse Ox 97.6 F 107 H 26 H 156/78 H 97 08/05/16 12:30 08/06/16 10:16 08/06/16 10:16 08/06/16 10:16 08/06/16 10:16 Intake and Output: 08/06/16 08/06/16 06:59 18:59 Intake Total 1625 625 Output Total 1185 695 Balance 440 -70 - Medications Medications: Current Medications Famotidine (Pepcid) 20 mg IVP DAILY [facility] Last Admin: 08/06/16 10:30 Dose: 20 mg Hydralazine HCl (Apresoline) 10 mg IVP Q6H PRN PRN Reason: Systolic Blood Pressure Last Admin: 08/06/16 09:50 Dose: 10 mg Levetiracetam 500 mg/ Sodium (Chloride) 105 mls @ 420 mls/hr IVPB Q12H [facility] Last Admin: 08/06/16 05:24 Dose: 420 mls/hr Sodium Chloride (Sodium Chloride 0.9%) 1,000 mls @ 125 mls/hr IV .Q8H [facility] Last Admin: 08/06/16 10:31 Dose: Not Given Insulin Human Regular (Novolin R) 0 unit SC Q6H [facility] PRN Reason: Protocol Last Admin: 08/06/16 05:23 Dose: Not Given Labetalol HCl (Trandate) 10 mg IVP Q1 PRN PRN Reason: SBP> 160 mm Hg Last Admin: 08/05/16 15:50 Dose: 10 mg Latanoprost (Xalatan Opht) 0 ml OD HS [facility] Last Admin: 08/05/16 21:51 Dose: 1 ml Lisinopril (Zestril) 20 mg PO DAILY [facility] Last Admin: 08/05/16 12:56 Dose: 20 mg Timolol Maleate (Timoptic 0.5% Ophth Soln) 0 drop OD DAILY [facility] Last Admin: 08/05/16 12:59 Dose: 1 drop - Labs Labs: 08/06/16 06:25 08/06/16 06:25 PT 11.2 SECONDS (9.7-12.2) 07/30/16 23:18 INR 1.0 07/30/16 23:18 APTT 29 SECONDS (21-34) 07/30/16 23:18
[2016-08-06] MEDS: Labetalol 25mg/5ml Syringe IVP PRN ×2 (11:30→14:50)
--- NOTE | 2016-08-06 18:05 | CP.PCM.PN ---
Subjective - Date & Time of Evaluation Date of Evaluation: 08/06/16 Time of Evaluation: 16:00 - Subjective Subjective: Medical Attending Note Follow-up: Subdural Hemorrhage Patient seen and examined. Family present at bedside. Patient is agitate moving bilateral upper and lower extremities. Patient's daughter, , and family friend at bedside. Patient seen earlier by neurosurgery today spoke with family at bedside. Patient's elim ira language in Maltese. Per daughter, patient's will be here tomorrow, primarily slovak speaking, advised there is a allergist/pediatric pulmonologist machine to help with any questions she may have. Numbers of daughter and family friend provided to the nurse for any questions. Objective - Vital Signs/Intake and Output Vital Signs (last 24 hours): Temp Pulse Resp BP Pulse Ox 98 F 96 H 23 132/66 96 08/06/16 16:00 08/06/16 17:13 08/06/16 17:13 08/06/16 17:13 08/06/16 17:13 Intake and Output: 08/06/16 08/06/16 06:59 18:59 Intake Total 1625 1575 Output Total 1185 1345 Balance 440 230 - Medications Medications: Current Medications Famotidine (Pepcid) 20 mg IVP DAILY [facility] Last Admin: 08/06/16 10:30 Dose: 20 mg Hydralazine HCl (Apresoline) 10 mg IVP Q6H PRN PRN Reason: Systolic Blood Pressure Last Admin: 08/06/16 09:50 Dose: 10 mg Levetiracetam 500 mg/ Sodium (Chloride) 105 mls @ 420 mls/hr IVPB Q12H [facility] Last Admin: 08/06/16 05:24 Dose: 420 mls/hr Sodium Chloride (Sodium Chloride 0.9%) 1,000 mls @ 125 mls/hr IV .Q8H [facility] Last Admin: 08/06/16 14:55 Dose: 125 mls/hr Insulin Human Regular (Novolin R) 0 unit SC Q6H [facility] PRN Reason: Protocol Last Admin: 08/06/16 11:38 Dose: Not Given Labetalol HCl (Trandate) 10 mg IVP Q1 PRN PRN Reason: SBP> 160 mm Hg Last Admin: 08/06/16 14:50 Dose: 10 mg Latanoprost (Xalatan Opht) 0 ml OD HS [facility] Last Admin: 08/05/16 21:51 Dose: 1 ml Lisinopril (Zestril) 20 mg PO DAILY [facility] Last Admin: 08/06/16 11:29 Dose: 20 mg Timolol Maleate (Timoptic 0.5% Ophth Soln) 0 drop OD DAILY [facility] Last Admin: 08/06/16 10:00 Dose: 1 drop - Labs Labs: 08/06/16 06:25 08/06/16 06:25 PT 11.2 SECONDS (9.7-12.2) 07/30/16 23:18 INR 1.0 07/30/16 23:18 APTT 29 SECONDS (21-34) 07/30/16 23:18 - Constitutional Appears: Agitated, Confused - Head Exam Additional comments: Drain placed, dressing clean dry intact - Eye Exam Additional comments: medially adducted bilateral (left eye baseline adduction) - ENT Exam ENT Exam: Mucous Membranes Moist - Respiratory Exam Respiratory Exam: NORMAL BREATHING PATTERN. absent: Rales, Rhonchi - Cardiovascular Exam Cardiovascular Exam: REGULAR RHYTHM, +S1, +S2 - GI/Abdominal Exam GI & Abdominal Exam: Guarding, Rigid, Soft, Normal Bowel Sounds. absent: Distended, Tenderness, Rebound - Extremities Exam Extremities Exam: absent: Pedal Edema, Tenderness - Neurological Exam Neurological Exam: Altered, Awake - Psychiatric Exam Psychiatric exam: Normal Affect, Normal Mood - Skin Skin Exam: Dry, Normal Color, Warm Assessment and Plan (1) Cerebral hemorrhage Status: Acute (2) Hypertension Status: Chronic (3) Diabetes Status: Chronic (4) Constipation Status: Chronic (5) Prophylactic measure Status: Acute - Assessment and Plan (Free Text) Assessment: (1) Cerebral hemorrhage Assessment & Plan: * Critical care: help appreciated * Neurosurgery: Dr. Bolden on board-->help appreciated * Neurology: Dr Bonner on board-->help appreciated * Head CT (07/30/16): CT Head without contrast: 1. The left orbit appears to be rotated 90 degrees to the right while the right orbit appears to be oriented normally. 2. 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 This results in severe mass effect on the underlying brain, including 1.4 cm of leftward midline shift and compression of the right lateral ventricle. Asymmetric enlargement of the right temporal horn suggestive of early entrapment. * Head CT (08/02/16): satisfactory postoperative status following craniotomy, evacuation of large extra-axial fluid collection on the right. No new intra- axial abnormalities. Improved edema, mass effect. No evidence of acute infarction. * Head CT (08/04/16) showed acute extra-axial hemorrhage with blood layering in the extra-axial space. Increase in sulcal effacement, mass effect and midline shift. There is no evidence of herniation. This follows removal of the surgical drain identified previously. * Head CT (08/06/16): status post surgical intervention, placement of drainage catheter into the extra-axial space at the site prior subdural hematoma edema, mass effect and midline shift have improved considerably. No new or significant findings identified. * POD 4: s/p [place] hole and evacuation of subdural hemorrhage with [place] and [place] drain * POD 2 s/p right frontotemporal craniotomy; evacuation of acute subdural drain present * Removal of drain on 08/03/16 * Keppra 500mg IVPB Q 12hours for seizure prophylaxis * Sodium 2tabs PO Q 8 hours started--> monitor sodium * NS 125cc/hr; Sodium tablets * Per neurosurgery, prefers patient off anticoagulation * continue Neurochecks * No pain/no sedatives Status: Acute (2) Hypertension Assessment & Plan: Lisinopril 20mg PO daily * NS 1S 125cc/hr * Monitor vitals signs Status: Chronic (3) Diabetes Assessment & Plan: * [id number]: 5.9 * Controlled * Accuchecks Q6 hours * Regular insulin sliding scale subq Q 6hours * on feedings Status: Chronic (4) Prophylactic measure Assessment & Plan: Neurosurgery prefers patient off anticoagulation per prior discussion with ICU NGT tube Pepcid 20mg PO daily No benzos Seizure prophylaxis Blood cultures negative X 24 hours Status: Acute
[2016-08-06 20:15] LABS: ABG ALLEN TEST POS; ARTERIAL BLOOD HGB O2 SAT 94.4 % (95.0-98.0); CARBOXYHEMOGLOBIN 1.9 % (0.5-1.5); DRAW SITE RRA; HHB 2.7 % (0.0-5.0)
[2016-08-06] MEDS: Latanoprost 2.5 ml Opht Soln OD SCH (23:02)
[2016-08-07] MEDS: (Novolin R) Insulin Human Regular 100 units/ml vial SC SCH ×4 (01:11→18:24)
[2016-08-07] MEDS: Labetalol 25mg/5ml Syringe IVP PRN (01:14)
[2016-08-07] MEDS: Sodium Chloride 0.9% 1,000 ML IV SCH ×4 (03:20→20:21)
[2016-08-07 06:40] LABS: BASO % 0.3 % (0.0-2.0); EOS # 0.6 K/uL (0.0-0.7); EOS % 4.5 % (0.0-4.0); HEMATOCRIT 31.1 % (35.0-51.0); LYMPH # 1.7 K/uL (1.0-4.3); LYMPH % 12.7 % (20.0-40.0); MEAN CELL VOLUME 80.4 fL (80.0-94.0); MEAN CORPUSCULAR HEMOGLOBIN 27.1 pg (27.0-31.0); MEAN CORPUSCULAR HGB CONC 33.7 g/dL (33.0-37.0); MEAN PLATELET VOLUME 8.4 fL (7.2-11.7); MONO # 1.4 K/uL (0.0-0.8); MONO % 10.3 % (0.0-10.0); RED CELL DISTRIBUTION WIDTH 14.1 % (11.5-14.5); WHITE BLOOD COUNT 13.5 K/uL (4.8-10.8)
[2016-08-07] MEDS: levETIRAcetam 500 MG in Sodium Chloride 0.9% 100 ML IVPB SCH ×2 (06:47→18:23)
[2016-08-07 07:11] LABS: CHLORIDE 108 mmol/L (98-107); POTASSIUM 2.8 mmol/L (3.6-5.2); SODIUM 134 mmol/L (132-148)
[2016-08-07 07:13] LABS: AST/SGOT 55 U/L (17-59); BILIRUBIN,TOTAL 0.7 mg/dL (0.2-1.3); CARBON DIOXIDE 17 mmol/L (22-30); GFR AFRICAN-AMERICAN > 60
[2016-08-07 07:14] LABS: ALKALINE PHOSPHATASE 89 U/L (38-126); ALT/SGPT 66 U/L (21-72); BLOOD UREA NITROGEN 7 mg/dL (9-20); CALCIUM 6.3 mg/dl (8.6-10.4); GLUCOSE,RANDOM 132 mg/dL (75-110); PHOSPHOROUS 1.7 mg/dL (2.5-4.5); TOTAL PROTEIN 4.9 g/dL (6.3-8.3)
[2016-08-07 07:15] LABS: MAGNESIUM 1.8 mg/dL (1.6-2.3)
[2016-08-07] MEDS ORDERED: Potassium Chloride 20 mEq/15 ml LIQ UD PO ONE (08:45)
[2016-08-07] MEDS ORDERED: Acetaminophen 650mg/20.3ml solution UD NG PRN (09:25)
[2016-08-07] MEDS ORDERED: Sodium Phosphate 15 MMOLE in Sodium Chloride 0.9% 250 ML IVPB ONE (10:00)
[2016-08-07] MEDS ORDERED: Propofol 10 mg/ml Inj (20 ML) ONE (10:02)
[2016-08-07] MEDS ORDERED: Apap-Butalbital-Caffeine 325-50-40mg Tab PO PRN (10:11)
[2016-08-07] MEDS: Etomidate 20 mg/10ml Inj IV ONE (10:33)
[2016-08-07] MEDS: Propofol 10 mg/ml 1,000 MG/100 ML VIAL IV PRN ×2 (10:34→20:19)
--- NOTE | 2016-08-07 11:00 | RAD ---
HISTORY: Post intubation. Portable study 10:26. COMPARISON: 08/04/2016. FINDINGS: LUNGS: No active pulmonary disease. PLEURA: No significant pleural effusion identified, no pneumothorax apparent. CARDIOVASCULAR: No radiographic findings to suggest acute or significant cardiovascular disease. OSSEOUS STRUCTURES: No significant abnormalities. VISUALIZED UPPER ABDOMEN: Normal. OTHER FINDINGS: Stable position of support apparatus including endotracheal tube and nasogastric tube. IMPRESSION: No active pulmonary disease, stable position of support apparatus.
[2016-08-07 11:23] LABS: ABG ALLEN TEST POS; ABG MECHANICAL RATE 16; ARTERIAL BLOOD HGB O2 SAT 98.1 % (95.0-98.0); ATERIAL BLOOD GAS PEEP 5; CARBOXYHEMOGLOBIN 1.4 % (0.5-1.5); DRAW SITE RR; HHB -0.3 % (0.0-5.0); METHEMOGLOBIN 0.8 % (0.0-3.0)
[2016-08-07] MEDS ORDERED: [UNRECOGNIZED DRUG - OTHER] OS SCH (11:45)
--- NOTE | 2016-08-07 13:07 | CP.CCUPN ---
<Keegan Aponte - Last Filed: 08/07/16 13:16> CCU Subjective - Physician Review Subjective (Free Text): 08/07/16 13:01 PGY-1 ICU progress note Pt seen and examined at bedside. Pt agitated all last night. Told family that his head was hurting Critical Care Time Spent (in minutes): 35 CCU Objective - Vital Signs / Intake & Output Vital Signs (Last 4 hours): Vital Signs Pulse Resp BP Pulse Ox 08/07/16 12:18 85 16 82/44 L 100 08/07/16 12:08 81 16 98/52 L 100 08/07/16 11:59 85 21 109/63 100 08/07/16 11:51 87 16 77/46 L 100 08/07/16 11:48 85 16 74/43 L 100 08/07/16 11:43 86 17 77/45 L 100 08/07/16 11:38 86 16 74/43 L 100 08/07/16 11:29 85 17 76/44 L 100 08/07/16 11:18 89 22 98/58 L 100 08/07/16 11:08 87 25 H 99/67 L 100 08/07/16 11:04 83 18 95/58 L 100 08/07/16 10:53 85 14 123/82 100 08/07/16 10:13 97 H 24 91/58 L 100 08/07/16 09:13 94 H 19 130/76 98 Intake and Output (Last 8hrs): Intake & Output 08/06/16 08/07/16 08/07/16 22:59 06:59 14:59 Intake Total 1235 1320 125 Output Total 835 485 70 Balance 400 835 55 Intake: Intake, IV Amount 1000 1000 75 Left Antecubital 1000 1000 75 Tube Feeding 235 320 50 Output: Drainage 50 30 Right Parietal 50 30 Urine 785 485 40 Urethral (Devlin) 785 485 40 Other: # Bowel Movements 0 0 0 - Physical Exam Head: Positive for: Other (bandages and drain in place and C/D/I) Pupils: Positive for: PERRL Extroacular Muscles: Positive for: EOMI Respiratory/Chest: Positive for: Clear to Auscultation, Good Air Exchange Cardiovascular: Positive for: Regular Rate and Rhythm, Normal S1, S2 Abdomen: Positive for: Normal Bowel Sounds. Negative for: Tenderness, Distention Upper Extremity: Positive for: NORMAL PULSES, Neurovascularly Intact Lower Extremity: Positive for: NORMAL PULSES, Neurovascularly Intact Neurological: Positive for: Motor Func Grossly Intact Skin: Positive for: Warm, Dry Psychiatric: Positive for: Alert, Agitated - Medications Active Medications: Active Medications Generic Name Dose Route Start Last Admin Trade Name Freq PRN Reason Stop Dose Admin Acetaminophen/Butalbital/Caffeine 1 tab 08/07/16 10:11 Fioricet PO Q4 PRN Headache Famotidine 20 mg 08/05/16 10:00 08/07/16 09:15 Pepcid IVP 20 mg DAILY GORDO Administration Home Med 1 drop 08/07/16 18:00 Patient's Own Drops OS BID GORDO Hydralazine HCl 10 mg 08/04/16 18:30 08/06/16 20:38 Apresoline IVP 10 mg Q6H PRN Administration Systolic Blood Pressure Levetiracetam 500 mg/ Sodium 105 mls @ 420 mls/hr 08/04/16 18:00 08/07/16 06: 47 Chloride IVPB 420 mls/hr Q12H GORDO Administration Sodium Chloride 1,000 mls @ 75 mls/hr 08/07/16 07:00 08/07/16 08:15 Sodium Chloride 0.9% IV 75 mls/hr .[id number] GORDO Administration Sodium Phosphate 15 mmole/ 255 mls @ 50 mls/hr 08/07/16 10:00 08/07/16 10:32 Sodium Chloride IVPB 08/07/16 15:05 50 mls/hr .[id number] ONE Administration Propofol 1,000 mg in 100 mls @ 2.041 mls/hr 08/07/16 10:09 08/07/16 10:34 Diprivan IV 5 mcg/kg/min .Q24H PRN 2.041 mls/hr TITRATE PER MD ORDER Administration Protocol 5 MCG/KG/MIN Insulin Human Regular 0 unit 07/31/16 12:00 08/07/16 11:54 Novolin R SC Not Given Q6H GORDO Protocol Labetalol HCl 10 mg 08/05/16 14:59 08/07/16 01:14 Trandate IVP 10 mg Q1 PRN Administration SBP> 160 mm Hg Latanoprost 0 ml 07/31/16 22:00 08/06/16 23:02 Xalatan Opht OD 2.5 ml HS GORDO Administration Lisinopril 20 mg 08/04/16 18:32 08/07/16 09:16 Zestril PO Not Given DAILY GORDO Timolol Maleate 0 drop 07/31/16 11:15 08/07/16 11:55 Timoptic 0.5% Ophth Soln OD Not Given DAILY GORDO - Patient Studies Lab Studies: Microbiology Studies 08/04/16 18:00 Blood Culture - Preliminary Blood NO GROWTH AFTER 48 HOURS 08/04/16 17:45 Blood Culture - Preliminary Blood NO GROWTH AFTER 48 HOURS Lab Studies 08/07/16 08/07/16 08/07/16 Range/Units 11:53 11:18 06:31 WBC (4.8-10.8) K/uL RBC (4.40-5.90) Mil/uL Hgb (12.0-18.0) g/dL Hct (35.0-51.0) % MCV (80.0-94.0) fL MCH (27.0-31.0) pg MCHC (33.0-37.0) g/dL RDW (11.5-14.5) % Plt Count (130-400) K/uL MPV (7.2-11.7) fL Neut % (Auto) (50.0-75.0) % Lymph % (Auto) (20.0-40.0) % [facility] % (Auto) (0.0-10.0) % Eos % (Auto) (0.0-4.0) % Baso % (Auto) (0.0-2.0) % Neut # (1.8-7.0) K/uL Lymph # (1.0-4.3) K/uL [facility] # (0.0-0.8) K/uL Eos # (0.0-0.7) K/uL Baso # (0.0-0.2) K/uL Puncture Site Rr pCO2 32 L (35-45) mm/Hg pO2 501 H (80-100) mm/Hg HCO3 23.0 (21-28) mmol/L ABG pH 7.43 (7.35-7.45) ABG Total CO2 22.2 (22-28) mmol/L ABG O2 Saturation 100.3 H (95-98) % ABG Base Excess -2.5 L (-2.0-3.0) mmol/L ABG Hemoglobin 9.8 L (11.7-17.4) g/dL ABG Carboxyhemoglobin 1.4 (0.5-1.5) % POC ABG HHb (Measured) -0.3 L (0.0-5.0) % ABG Methemoglobin 0.8 (0.0-3.0) % David Test Pos A-a O2 Difference 172.0 mm/Hg Respiratory Index 0.3 Hgb O2 Saturation 98.1 H (95.0-98.0) % Mechanical Rate 16 FiO2 100.0 % Tidal Volume 500 PEEP 5 Sodium (132-148) mmol/L Potassium (3.6-5.2) mmol/L Chloride (98-107) mmol/L Carbon Dioxide (22-30) mmol/L Anion Gap (10-20) BUN (9-20) mg/dL Creatinine (0.8-1.5) MG/DL Est GFR ( Amer) Est GFR (Non-Af Amer) POC Glucose (mg/dL) 148 H 165 H (65-110) mg/dL Random Glucose (75-110) mg/dL Calcium (8.6-10.4) mg/dl Phosphorus (2.5-4.5) mg/dL Magnesium (1.6-2.3) mg/dL Total Bilirubin (0.2-1.3) mg/dL AST (17-59) U/L ALT (21-72) U/L Alkaline Phosphatase (38-126) U/L Total Protein (6.3-8.3) g/dL Albumin (3.5-5.0) g/dL Globulin (2.2-3.9) gm/dL Albumin/Globulin Ratio (1.0-2.1) 08/07/16 08/07/16 08/07/16 Range/Units 06:30 06:30 01:03 WBC 13.5 H (4.8-10.8) K/uL RBC 3.86 L (4.40-5.90) Mil/uL Hgb 10.5 L (12.0-18.0) g/dL Hct 31.1 L (35.0-51.0) % MCV 80.4 (80.0-94.0) fL MCH 27.1 (27.0-31.0) pg MCHC 33.7 (33.0-37.0) g/dL RDW 14.1 (11.5-14.5) % Plt Count 265 (130-400) K/uL MPV 8.4 (7.2-11.7) fL Neut % (Auto) 72.2 (50.0-75.0) % Lymph % (Auto) 12.7 L (20.0-40.0) % [facility] % (Auto) 10.3 H (0.0-10.0) % Eos % (Auto) 4.5 H (0.0-4.0) % Baso % (Auto) 0.3 (0.0-2.0) % Neut # 9.7 H (1.8-7.0) K/uL Lymph # 1.7 (1.0-4.3) K/uL [facility] # 1.4 H (0.0-0.8) K/uL Eos # 0.6 (0.0-0.7) K/uL Baso # 0.0 (0.0-0.2) K/uL Puncture Site pCO2 (35-45) mm/Hg pO2 (80-100) mm/Hg HCO3 (21-28) mmol/L ABG pH (7.35-7.45) ABG Total CO2 (22-28) mmol/L ABG O2 Saturation (95-98) % ABG Base Excess (-2.0-3.0) mmol/L ABG Hemoglobin (11.7-17.4) g/dL ABG Carboxyhemoglobin (0.5-1.5) % POC ABG HHb (Measured) (0.0-5.0) % ABG Methemoglobin (0.0-3.0) % David Test A-a O2 Difference mm/Hg Respiratory Index Hgb O2 Saturation (95.0-98.0) % Mechanical Rate FiO2 % Tidal Volume PEEP Sodium 134 (132-148) mmol/L Potassium 2.8 L (3.6-5.2) mmol/L Chloride 108 H (98-107) mmol/L Carbon Dioxide 17 L (22-30) mmol/L Anion Gap 12 (10-20) BUN 7 L (9-20) mg/dL Creatinine 0.4 L (0.8-1.5) MG/DL Est GFR ( Amer) > 60 Est GFR (Non-Af Amer) > 60 POC Glucose (mg/dL) 151 H (65-110) mg/dL Random Glucose 132 H (75-110) mg/dL Calcium 6.3 L (8.6-10.4) mg/dl Phosphorus 1.7 L (2.5-4.5) mg/dL Magnesium 1.8 (1.6-2.3) mg/dL Total Bilirubin 0.7 (0.2-1.3) mg/dL AST 55 (17-59) U/L ALT 66 (21-72) U/L Alkaline Phosphatase 89 (38-126) U/L Total Protein 4.9 L (6.3-8.3) g/dL Albumin 2.4 L D (3.5-5.0) g/dL Globulin 2.5 (2.2-3.9) gm/dL Albumin/Globulin Ratio 1.0 (1.0-2.1) 08/06/16 08/06/16 Range/Units 20:10 17:53 WBC (4.8-10.8) K/uL RBC (4.40-5.90) Mil/uL Hgb (12.0-18.0) g/dL Hct (35.0-51.0) % MCV (80.0-94.0) fL MCH (27.0-31.0) pg MCHC (33.0-37.0) g/dL RDW (11.5-14.5) % Plt Count (130-400) K/uL MPV (7.2-11.7) fL Neut % (Auto) (50.0-75.0) % Lymph % (Auto) (20.0-40.0) % [facility] % (Auto) (0.0-10.0) % Eos % (Auto) (0.0-4.0) % Baso % (Auto) (0.0-2.0) % Neut # (1.8-7.0) K/uL Lymph # (1.0-4.3) K/uL [facility] # (0.0-0.8) K/uL Eos # (0.0-0.7) K/uL Baso # (0.0-0.2) K/uL Puncture Site Rra pCO2 29 L (35-45) mm/Hg pO2 66 L (80-100) mm/Hg HCO3 24.4 (21-28) mmol/L ABG pH 7.49 H (7.35-7.45) ABG Total CO2 23.0 (22-28) mmol/L ABG O2 Saturation 97.2 (95-98) % ABG Base Excess -0.6 (-2.0-3.0) mmol/L ABG Hemoglobin 9.8 L (11.7-17.4) g/dL ABG Carboxyhemoglobin 1.9 H (0.5-1.5) % POC ABG HHb (Measured) 2.7 (0.0-5.0) % ABG Methemoglobin 1.0 (0.0-3.0) % David Test Pos A-a O2 Difference 47.0 mm/Hg Respiratory Index 0.7 Hgb O2 Saturation 94.4 L (95.0-98.0) % Mechanical Rate FiO2 21.0 % Tidal Volume PEEP Sodium (132-148) mmol/L Potassium (3.6-5.2) mmol/L Chloride (98-107) mmol/L Carbon Dioxide (22-30) mmol/L Anion Gap (10-20) BUN (9-20) mg/dL Creatinine (0.8-1.5) MG/DL Est GFR ( Amer) Est GFR (Non-Af Amer) POC Glucose (mg/dL) 145 H (65-110) mg/dL Random Glucose (75-110) mg/dL Calcium (8.6-10.4) mg/dl Phosphorus (2.5-4.5) mg/dL Magnesium (1.6-2.3) mg/dL Total Bilirubin (0.2-1.3) mg/dL AST (17-59) U/L ALT (21-72) U/L Alkaline Phosphatase (38-126) U/L Total Protein (6.3-8.3) g/dL Albumin (3.5-5.0) g/dL Globulin (2.2-3.9) gm/dL Albumin/Globulin Ratio (1.0-2.1) Laboratory Results - last 24 hr 08/06/16 08/06/16 08/07/16 17:53 20:10 01:03 WBC RBC Hgb Hct MCV MCH MCHC RDW Plt Count MPV Neut % (Auto) Lymph % (Auto) [facility] % (Auto) Eos % (Auto) Baso % (Auto) Neut # Lymph # [facility] # Eos # Baso # Puncture Site Rra pCO2 29 L pO2 66 L HCO3 24.4 ABG pH 7.49 H ABG Total CO2 23.0 ABG O2 Saturation 97.2 ABG Base Excess -0.6 ABG Hemoglobin 9.8 L ABG Carboxyhemoglobin 1.9 H POC ABG HHb (Measured) 2.7 ABG Methemoglobin 1.0 David Test Pos A-a O2 Difference 47.0 Respiratory Index 0.7 Hgb O2 Saturation 94.4 L Mechanical Rate FiO2 21.0 Tidal Volume PEEP Sodium Potassium Chloride Carbon Dioxide Anion Gap BUN Creatinine Est GFR ( Amer) Est GFR (Non-Af Amer) POC Glucose (mg/dL) 145 H 151 H Random Glucose Calcium Phosphorus Magnesium Total Bilirubin AST ALT Alkaline Phosphatase Total Protein Albumin Globulin Albumin/Globulin Ratio 08/07/16 08/07/16 08/07/16 06:30 06:30 06:31 WBC 13.5 H RBC 3.86 L Hgb 10.5 L Hct 31.1 L MCV 80.4 MCH 27.1 MCHC 33.7 RDW 14.1 Plt Count 265 MPV 8.4 Neut % (Auto) 72.2 Lymph % (Auto) 12.[address] [facility] % (Auto) 10.3 H Eos % (Auto) 4.5 H Baso % (Auto) 0.3 Neut # 9.7 H Lymph # 1.7 [facility] # 1.4 H Eos # 0.6 Baso # 0.0 Puncture Site pCO2 pO2 HCO3 ABG pH ABG Total CO2 ABG O2 Saturation ABG Base Excess ABG Hemoglobin ABG Carboxyhemoglobin POC ABG HHb (Measured) ABG Methemoglobin David Test A-a O2 Difference Respiratory Index Hgb O2 Saturation Mechanical Rate FiO2 Tidal Volume PEEP Sodium 134 Potassium 2.8 L Chloride 108 H Carbon Dioxide 17 L Anion Gap 12 BUN 7 L Creatinine 0.4 L Est GFR ( Amer) > 60 Est GFR (Non-Af Amer) > 60 POC Glucose (mg/dL) 165 H Random Glucose 132 H Calcium 6.3 L Phosphorus 1.7 L Magnesium 1.8 Total Bilirubin 0.7 AST 55 ALT 66 Alkaline Phosphatase 89 Total Protein 4.9 L Albumin 2.4 L D Globulin 2.5 Albumin/Globulin Ratio 1.0 08/07/16 08/07/16 11:18 11:53 WBC RBC Hgb Hct MCV MCH MCHC RDW Plt Count MPV Neut % (Auto) Lymph % (Auto) [facility] % (Auto) Eos % (Auto) Baso % (Auto) Neut # Lymph # [facility] # Eos # Baso # Puncture Site Rr pCO2 32 L pO2 501 H HCO3 23.0 ABG pH 7.43 ABG Total CO2 22.2 ABG O2 Saturation 100.3 H ABG Base Excess -2.5 L ABG Hemoglobin 9.8 L ABG Carboxyhemoglobin 1.4 POC ABG HHb (Measured) -0.3 L ABG Methemoglobin 0.8 David Test Pos A-a O2 Difference 172.0 Respiratory Index 0.3 Hgb O2 Saturation 98.1 H Mechanical Rate 16 FiO2 100.0 Tidal Volume 500 PEEP 5 Sodium Potassium Chloride Carbon Dioxide Anion Gap BUN Creatinine Est GFR ( Amer) Est GFR (Non-Af Amer) POC Glucose (mg/dL) 148 H Random Glucose Calcium Phosphorus Magnesium Total Bilirubin AST ALT Alkaline Phosphatase Total Protein Albumin Globulin Albumin/Globulin Ratio Fingerstick Blood Sugar Results: 165 Review of Systems - Review of Systems Systems not reviewed;Unavailable: Acuity of Condition Critical Care Progress Note - Nutrition Nutrition: Nutrition Category Date Time Status NPO Diet [DIET] Diets 08/04/16 Breakfast Active Assessment/Plan - Assessment and Plan (Free Text) Assessment: This is a 75 yo M with right subdural hematoma s/p naomy hole evacuation x 2, POD #6 and 2, now intubated for protection of airway secondary to severe agitation. Plan: Neuro: Agitated, now intubated and sedated Keppra for seizure ppx Repeat CT - Status post drainage of right subdural hematoma. A drainage catheter is seen in the extra-axial space. There is air and fluid in the sub dural space with an average thickness of 9 mm. No change Drain in place Neurosurg following Cardiovascular: Hemodynamically stable Continue current med regimen Pulmonary: Intubated Follow ABGs/CXR Monitor O2 sats Gastrointestinal: Tube feeds No acute issues Hematology: No issues, monitor H/H Endocrine: No acute issues Renal: Cont IVF Monitor electrolytes and replete as needed Strict I/O Infectious Disease: Afebrile, no leukocytosis GI Prophylaxis: Pepcid DVT Prophylaxis: Heparin <Justino Kumari S - Last Filed: 08/07/16 15:08> CCU Objective - Vital Signs / Intake & Output Vital Signs (Last 4 hours): Vital Signs Pulse Resp BP Pulse Ox 08/07/16 12:18 85 16 82/44 L 100 08/07/16 12:08 81 16 98/52 L 100 08/07/16 11:59 85 21 109/63 100 08/07/16 11:51 87 16 77/46 L 100 08/07/16 11:48 85 16 74/43 L 100 08/07/16 11:43 86 17 77/45 L 100 08/07/16 11:38 86 16 74/43 L 100 08/07/16 11:29 85 17 76/44 L 100 08/07/16 11:18 89 22 98/58 L 100 08/07/16 11:08 87 25 H 99/67 L 100 Intake and Output (Last 8hrs): Intake & Output 08/07/16 08/07/16 08/07/16 06:59 14:59 22:59 Intake Total 1320 625 Output Total 485 320 Balance 835 305 Intake: Intake, IV Amount 1000 375 Left Antecubital 1000 375 Tube Feeding 320 250 Output: Drainage 40 Right Parietal 40 Urine 485 280 Urethral (Devlin) 485 280 Other: # Bowel Movements 0 0 - Medications Active Medications: Active Medications Generic Name Dose Route Start Last Admin Trade Name Freq PRN Reason Stop Dose Admin Acetaminophen/Butalbital/Caffeine 1 tab 08/07/16 10:11 Fioricet PO Q4 PRN Headache Famotidine 20 mg 08/05/16 10:00 08/07/16 09:15 Pepcid IVP 20 mg DAILY GORDO Administration Home Med 1 drop 08/07/16 18:00 Patient's Own Drops OS BID GORDO Hydralazine HCl 10 mg 08/04/16 18:30 08/06/16 20:38 Apresoline IVP 10 mg Q6H PRN Administration Systolic Blood Pressure Levetiracetam 500 mg/ Sodium 105 mls @ 420 mls/hr 08/04/16 18:00 08/07/16 06: 47 Chloride IVPB 420 mls/hr Q12H GORDO Administration Sodium Chloride 1,000 mls @ 75 mls/hr 08/07/16 07:00 08/07/16 08:15 Sodium Chloride 0.9% IV 75 mls/hr .[id number] GORDO Administration Propofol 1,000 mg in 100 mls @ 2.041 mls/hr 08/07/16 10:09 08/07/16 10:34 Diprivan IV 5 mcg/kg/min .Q24H PRN 2.041 mls/hr TITRATE PER MD ORDER Administration Protocol 5 MCG/KG/MIN Insulin Human Regular 0 unit 07/31/16 12:00 08/07/16 11:54 Novolin R SC Not Given Q6H GORDO Protocol Labetalol HCl 10 mg 08/05/16 14:59 08/07/16 01:14 Trandate IVP 10 mg Q1 PRN Administration SBP> 160 mm Hg Latanoprost 0 ml 07/31/16 22:00 08/06/16 23:02 Xalatan Opht OD 2.5 ml HS GORDO Administration Lisinopril 20 mg 08/04/16 18:32 08/07/16 09:16 Zestril PO Not Given DAILY GORDO Timolol Maleate 0 drop 07/31/16 11:15 08/07/16 11:55 Timoptic 0.5% Ophth Soln OD Not Given DAILY GORDO - Patient Studies Lab Studies: Microbiology Studies 08/07/16 10:22 Gram Stain - Final Trachasp 08/04/16 18:00 Blood Culture - Preliminary Blood NO GROWTH AFTER 48 HOURS 08/04/16 17:45 Blood Culture - Preliminary Blood NO GROWTH AFTER 48 HOURS Lab Studies 08/07/16 08/07/16 08/07/16 Range/Units 11:53 11:18 06:31 WBC (4.8-10.8) K/uL RBC (4.40-5.90) Mil/uL Hgb (12.0-18.0) g/dL Hct (35.0-51.0) % MCV (80.0-94.0) fL MCH (27.0-31.0) pg MCHC (33.0-37.0) g/dL RDW (11.5-14.5) % Plt Count (130-400) K/uL MPV (7.2-11.7) fL Neut % (Auto) (50.0-75.0) % Lymph % (Auto) (20.0-40.0) % [facility] % (Auto) (0.0-10.0) % Eos % (Auto) (0.0-4.0) % Baso % (Auto) (0.0-2.0) % Neut # (1.8-7.0) K/uL Lymph # (1.0-4.3) K/uL [facility] # (0.0-0.8) K/uL Eos # (0.0-0.7) K/uL Baso # (0.0-0.2) K/uL Puncture Site Rr pCO2 32 L (35-45) mm/Hg pO2 501 H (80-100) mm/Hg HCO3 23.0 (21-28) mmol/L ABG pH 7.43 (7.35-7.45) ABG Total CO2 22.2 (22-28) mmol/L ABG O2 Saturation 100.3 H (95-98) % ABG Base Excess -2.5 L (-2.0-3.0) mmol/L ABG Hemoglobin 9.8 L (11.7-17.4) g/dL ABG Carboxyhemoglobin 1.4 (0.5-1.5) % POC ABG HHb (Measured) -0.3 L (0.0-5.0) % ABG Methemoglobin 0.8 (0.0-3.0) % David Test Pos A-a O2 Difference 172.0 mm/Hg Respiratory Index 0.3 Hgb O2 Saturation 98.1 H (95.0-98.0) % Mechanical Rate 16 FiO2 100.0 % Tidal Volume 500 PEEP 5 Sodium (132-148) mmol/L Potassium (3.6-5.2) mmol/L Chloride (98-107) mmol/L Carbon Dioxide (22-30) mmol/L Anion Gap (10-20) BUN (9-20) mg/dL Creatinine (0.8-1.5) MG/DL Est GFR ( Amer) Est GFR (Non-Af Amer) POC Glucose (mg/dL) 148 H 165 H (65-110) mg/dL Random Glucose (75-110) mg/dL Calcium (8.6-10.4) mg/dl Phosphorus (2.5-4.5) mg/dL Magnesium (1.6-2.3) mg/dL Total Bilirubin (0.2-1.3) mg/dL AST (17-59) U/L ALT (21-72) U/L Alkaline Phosphatase (38-126) U/L Total Protein (6.3-8.3) g/dL Albumin (3.5-5.0) g/dL Globulin (2.2-3.9) gm/dL Albumin/Globulin Ratio (1.0-2.1) 08/07/16 08/07/16 08/07/16 Range/Units 06:30 06:30 01:03 WBC 13.5 H (4.8-10.8) K/uL RBC 3.86 L (4.40-5.90) Mil/uL Hgb 10.5 L (12.0-18.0) g/dL Hct 31.1 L (35.0-51.0) % MCV 80.4 (80.0-94.0) fL MCH 27.1 (27.0-31.0) pg MCHC 33.7 (33.0-37.0) g/dL RDW 14.1 (11.5-14.5) % Plt Count 265 (130-400) K/uL MPV 8.4 (7.2-11.7) fL Neut % (Auto) 72.2 (50.0-75.0) % Lymph % (Auto) 12.7 L (20.0-40.0) % [facility] % (Auto) 10.3 H (0.0-10.0) % Eos % (Auto) 4.5 H (0.0-4.0) % Baso % (Auto) 0.3 (0.0-2.0) % Neut # 9.7 H (1.8-7.0) K/uL Lymph # 1.7 (1.0-4.3) K/uL [facility] # 1.4 H (0.0-0.8) K/uL Eos # 0.6 (0.0-0.7) K/uL Baso # 0.0 (0.0-0.2) K/uL Puncture Site pCO2 (35-45) mm/Hg pO2 (80-100) mm/Hg HCO3 (21-28) mmol/L ABG pH (7.35-7.45) ABG Total CO2 (22-28) mmol/L ABG O2 Saturation (95-98) % ABG Base Excess (-2.0-3.0) mmol/L ABG Hemoglobin (11.7-17.4) g/dL ABG Carboxyhemoglobin (0.5-1.5) % POC ABG HHb (Measured) (0.0-5.0) % ABG Methemoglobin (0.0-3.0) % David Test A-a O2 Difference mm/Hg Respiratory Index Hgb O2 Saturation (95.0-98.0) % Mechanical Rate FiO2 % Tidal Volume PEEP Sodium 134 (132-148) mmol/L Potassium 2.8 L (3.6-5.2) mmol/L Chloride 108 H (98-107) mmol/L Carbon Dioxide 17 L (22-30) mmol/L Anion Gap 12 (10-20) BUN 7 L (9-20) mg/dL Creatinine 0.4 L (0.8-1.5) MG/DL Est GFR ( Amer) > 60 Est GFR (Non-Af Amer) > 60 POC Glucose (mg/dL) 151 H (65-110) mg/dL Random Glucose 132 H (75-110) mg/dL Calcium 6.3 L (8.6-10.4) mg/dl Phosphorus 1.7 L (2.5-4.5) mg/dL Magnesium 1.8 (1.6-2.3) mg/dL Total Bilirubin 0.7 (0.2-1.3) mg/dL AST 55 (17-59) U/L ALT 66 (21-72) U/L Alkaline Phosphatase 89 (38-126) U/L Total Protein 4.9 L (6.3-8.3) g/dL Albumin 2.4 L D (3.5-5.0) g/dL Globulin 2.5 (2.2-3.9) gm/dL Albumin/Globulin Ratio 1.0 (1.0-2.1) 05/29/17 05/29/17 Range/Units 20:10 17:53 WBC (4.8-10.8) K/uL RBC (4.40-5.90) Mil/uL Hgb (12.0-18.0) g/dL Hct (35.0-51.0) % MCV (80.0-94.0) fL MCH (27.0-31.0) pg MCHC (33.0-37.0) g/dL RDW (11.5-14.5) % Plt Count (130-400) K/uL MPV (7.2-11.7) fL Neut % (Auto) (50.0-75.0) % Lymph % (Auto) (20.0-40.0) % [facility] % (Auto) (0.0-10.0) % Eos % (Auto) (0.0-4.0) % Baso % (Auto) (0.0-2.0) % Neut # (1.8-7.0) K/uL Lymph # (1.0-4.3) K/uL [facility] # (0.0-0.8) K/uL Eos # (0.0-0.7) K/uL Baso # (0.0-0.2) K/uL Puncture Site Rra pCO2 29 L (35-45) mm/Hg pO2 66 L (80-100) mm/Hg HCO3 24.4 (21-28) mmol/L ABG pH 7.49 H (7.35-7.45) ABG Total CO2 23.0 (22-28) mmol/L ABG O2 Saturation 97.2 (95-98) % ABG Base Excess -0.6 (-2.0-3.0) mmol/L ABG Hemoglobin 9.8 L (11.7-17.4) g/dL ABG Carboxyhemoglobin 1.9 H (0.5-1.5) % POC ABG HHb (Measured) 2.7 (0.0-5.0) % ABG Methemoglobin 1.0 (0.0-3.0) % David Test Pos A-a O2 Difference 47.0 mm/Hg Respiratory Index 0.7 Hgb O2 Saturation 94.4 L (95.0-98.0) % Mechanical Rate FiO2 21.0 % Tidal Volume PEEP Sodium (132-148) mmol/L Potassium (3.6-5.2) mmol/L Chloride (98-107) mmol/L Carbon Dioxide (22-30) mmol/L Anion Gap (10-20) BUN (9-20) mg/dL Creatinine (0.8-1.5) MG/DL Est GFR ( Amer) Est GFR (Non-Af Amer) POC Glucose (mg/dL) 145 H (65-110) mg/dL Random Glucose (75-110) mg/dL Calcium (8.6-10.4) mg/dl Phosphorus (2.5-4.5) mg/dL Magnesium (1.6-2.3) mg/dL Total Bilirubin (0.2-1.3) mg/dL AST (17-59) U/L ALT (21-72) U/L Alkaline Phosphatase (38-126) U/L Total Protein (6.3-8.3) g/dL Albumin (3.5-5.0) g/dL Globulin (2.2-3.9) gm/dL Albumin/Globulin Ratio (1.0-2.1) Laboratory Results - last 24 hr 08/06/16 08/06/16 08/07/16 17:53 20:10 01:03 WBC RBC Hgb Hct MCV MCH MCHC RDW Plt Count MPV Neut % (Auto) Lymph % (Auto) [facility] % (Auto) Eos % (Auto) Baso % (Auto) Neut # Lymph # [facility] # Eos # Baso # Puncture Site Rra pCO2 29 L pO2 66 L HCO3 24.4 ABG pH 7.49 H ABG Total CO2 23.0 ABG O2 Saturation 97.2 ABG Base Excess -0.6 ABG Hemoglobin 9.8 L ABG Carboxyhemoglobin 1.9 H POC ABG HHb (Measured) 2.7 ABG Methemoglobin 1.0 David Test Pos A-a O2 Difference 47.0 Respiratory Index 0.7 Hgb O2 Saturation 94.4 L Mechanical Rate FiO2 21.0 Tidal Volume PEEP Sodium Potassium Chloride Carbon Dioxide Anion Gap BUN Creatinine Est GFR ( Amer) Est GFR (Non-Af Amer) POC Glucose (mg/dL) 145 H 151 H Random Glucose Calcium Phosphorus Magnesium Total Bilirubin AST ALT Alkaline Phosphatase Total Protein Albumin Globulin Albumin/Globulin Ratio 08/07/16 08/07/16 08/07/16 06:30 06:30 06:31 WBC 13.5 H RBC 3.86 L Hgb 10.5 L Hct 31.1 L MCV 80.4 MCH 27.1 MCHC 33.7 RDW 14.1 Plt Count 265 MPV 8.4 Neut % (Auto) 72.2 Lymph % (Auto) 12.[address] [facility] % (Auto) 10.3 H Eos % (Auto) 4.5 H Baso % (Auto) 0.3 Neut # 9.7 H Lymph # 1.7 [facility] # 1.4 H Eos # 0.6 Baso # 0.0 Puncture Site pCO2 pO2 HCO3 ABG pH ABG Total CO2 ABG O2 Saturation ABG Base Excess ABG Hemoglobin ABG Carboxyhemoglobin POC ABG HHb (Measured) ABG Methemoglobin David Test A-a O2 Difference Respiratory Index Hgb O2 Saturation Mechanical Rate FiO2 Tidal Volume PEEP Sodium 134 Potassium 2.8 L Chloride 108 H Carbon Dioxide 17 L Anion Gap 12 BUN 7 L Creatinine 0.4 L Est GFR ( Amer) > 60 Est GFR (Non-Af Amer) > 60 POC Glucose (mg/dL) 165 H Random Glucose 132 H Calcium 6.3 L Phosphorus 1.7 L Magnesium 1.8 Total Bilirubin 0.7 AST 55 ALT 66 Alkaline Phosphatase 89 Total Protein 4.9 L Albumin 2.4 L D Globulin 2.5 Albumin/Globulin Ratio 1.0 08/07/16 08/07/16 11:18 11:53 WBC RBC Hgb Hct MCV MCH MCHC RDW Plt Count MPV Neut % (Auto) Lymph % (Auto) [facility] % (Auto) Eos % (Auto) Baso % (Auto) Neut # Lymph # [facility] # Eos # Baso # Puncture Site Rr pCO2 32 L pO2 501 H HCO3 23.0 ABG pH 7.43 ABG Total CO2 22.2 ABG O2 Saturation 100.3 H ABG Base Excess -2.5 L ABG Hemoglobin 9.8 L ABG Carboxyhemoglobin 1.4 POC ABG HHb (Measured) -0.3 L ABG Methemoglobin 0.8 David Test Pos A-a O2 Difference 172.0 Respiratory Index 0.3 Hgb O2 Saturation 98.1 H Mechanical Rate 16 FiO2 100.0 Tidal Volume 500 PEEP 5 Sodium Potassium Chloride Carbon Dioxide Anion Gap BUN Creatinine Est GFR ( Amer) Est GFR (Non-Af Amer) POC Glucose (mg/dL) 148 H Random Glucose Calcium Phosphorus Magnesium Total Bilirubin AST ALT Alkaline Phosphatase Total Protein Albumin Globulin Albumin/Globulin Ratio Critical Care Progress Note - Nutrition Nutrition: Nutrition Category Date Time Status NPO Diet [DIET] Diets 08/04/16 Breakfast Active Attending/Attestation - Attestation I have personally seen and examined this patient.: Yes I have fully participated in the care of the patient.: Yes I have reviewed all pertinent clinical information: Yes Notes (Text): 08/07/16 15:07 Patient seen and examined in the intensive care unit. Case discussed with house staff in the morning rounds. Patient intubated in the morning for extreme agitation/restlessness Copious amount of thick purulent secretions aspirated Repeat CT - Status post drainage of right subdural hematoma. A drainage catheter is seen in the extra-axial space. There is air and fluid in the sub dural space with an average thickness of 9 mm. No change cont Sedation
--- NOTE | 2016-08-07 13:16 | CT ---
PROCEDURE: CT HEAD WITHOUT CONTRAST. HISTORY: change in mental status COMPARISON: 08/06/2016 TECHNIQUE: Axial computed tomography images were obtained through the head/brain without intravenous contrast. Radiation dose: Total exam DLP = 1429 mGy-cm. This CT exam was performed using one or more of the following dose reduction techniques: Automated exposure control, adjustment of the mA and/or kV according to patient size, and/or use of iterative reconstruction technique. FINDINGS: HEMORRHAGE: Status post drainage of right subdural hematoma. A drainage catheter is seen in the extra-axial space. There is air and fluid in the sub dural space with an average thickness of 9 mm. No change from prior exam BRAIN: No atrophy or chronic microvascular ischemic changes. VENTRICLES: Unremarkable. No hydrocephalus. CALVARIUM: Right-sided craniotomy PARANASAL SINUSES: Unremarkable as visualized. No significant inflammatory changes. MASTOID AIR CELLS: Unremarkable as visualized. No inflammatory changes. OTHER FINDINGS: None. IMPRESSION: Status post drainage of right subdural hematoma. A drainage catheter is seen in the extra-axial space. There is air and fluid in the sub dural space with an average thickness of 9 mm. No change
[2016-08-07] MEDS ORDERED: Bacitracin 500 Units/gm Oint Foilpak UD TOP ONE (16:32)
[2016-08-07] MEDS: [UNRECOGNIZED DRUG - OTHER] OS SCH (18:24)
--- NOTE | 2016-08-07 19:00 | PN ---
DATE: 08/07/2016 The patient had a little bit of a setback this morning and was deemed to be more confused than usual, question of some hypoxia. He was intubated by the ICU staff. He underwent another followup CT of t he brain, which was basically unchanged to improved scan that he underwent yesterday. I have seen him today; he has been sedated and that is difficult to examine, although he is certainly moving all 4 extremities quite vigorously. As it has now been more than 48 hours since the evacuation of his recollection and a CAT scan continu es to look good, I am removing his subdural drain. This was done uneventfully. His wound is clean a nd dry. At this point, I do not believe there is anything further to offer him neurosurgically. Hopefully, kamran castellanos will improve as some of his pneumocephalus resolves and his brain function returns. Gadiel Rose MD cc: 131 TT: 08/07/2016 19:00:24 Confirmation # [id number] Dictation # [id number] kathryn
[2016-08-07] MEDS ORDERED: Docusate-Senna 50 mg-8.6 mg Tab GT SCH (20:45)
[2016-08-07] MEDS: Latanoprost 2.5 ml Opht Soln OD SCH ×2 (21:26→23:30)
[2016-08-08] MEDS: (Novolin R) Insulin Human Regular 100 units/ml vial SC SCH ×4 (00:37→18:19)
[2016-08-08 04:53] LABS: ABG ALLEN TEST POS; ABG MECHANICAL RATE 16; ARTERIAL BLOOD HGB O2 SAT 98.7 % (95.0-98.0); ATERIAL BLOOD GAS PEEP 5; CARBOXYHEMOGLOBIN 1.6 % (0.5-1.5); DRAW SITE RR; HHB -0.7 % (0.0-5.0); METHEMOGLOBIN 0.4 % (0.0-3.0)
[2016-08-08] MEDS: levETIRAcetam 500 MG in Sodium Chloride 0.9% 100 ML IVPB SCH ×2 (05:31→17:55)
[2016-08-08 06:49] LABS: BASO % 0.2 % (0.0-2.0); EOS % 10.1 % (0.0-4.0); LYMPH # 1.5 K/uL (1.0-4.3); LYMPH % 15.7 % (20.0-40.0); MEAN CELL VOLUME 80.5 fL (80.0-94.0); MEAN CORPUSCULAR HEMOGLOBIN 27.1 pg (27.0-31.0); MEAN CORPUSCULAR HGB CONC 33.6 g/dL (33.0-37.0); MONO # 0.9 K/uL (0.0-0.8); MONO % 9.3 % (0.0-10.0); WHITE BLOOD COUNT 9.6 K/uL (4.8-10.8)
[2016-08-08 06:55] LABS: CHLORIDE 103 mmol/L (98-107); SODIUM 134 mmol/L (132-148)
[2016-08-08 06:56] LABS: POTASSIUM 3.6 mmol/L (3.6-5.2)
[2016-08-08 06:58] LABS: ALB/GLOB RATIO 0.9 (1.0-2.1); ALKALINE PHOSPHATASE 139 U/L (38-126); ALT/SGPT 118 U/L (21-72); AST/SGOT 100 U/L (17-59); BILIRUBIN,TOTAL 0.7 mg/dL (0.2-1.3); BLOOD UREA NITROGEN 10 mg/dL (9-20); CARBON DIOXIDE 23 mmol/L (22-30); GFR AFRICAN-AMERICAN > 60; GLUCOSE,RANDOM 173 mg/dL (75-110); PHOSPHOROUS 2.5 mg/dL (2.5-4.5); TOTAL PROTEIN 5.7 g/dL (6.3-8.3)
[2016-08-08 06:59] LABS: CALCIUM 7.9 mg/dl (8.6-10.4); MAGNESIUM 2.1 mg/dL (1.6-2.3)
--- NOTE | 2016-08-08 09:40 | RAD ---
HISTORY: intubated COMPARISON: 08/07/2016 FINDINGS: LUNGS: No active pulmonary disease. PLEURA: No significant pleural effusion identified, no pneumothorax apparent. CARDIOVASCULAR: Endotracheal tube and nasogastric tube unchanged in position. OSSEOUS STRUCTURES: No significant abnormalities. VISUALIZED UPPER ABDOMEN: Normal. OTHER FINDINGS: None. IMPRESSION: No significant interval change.
[2016-08-08] MEDS: [UNRECOGNIZED DRUG - OTHER] OS SCH ×2 (10:52→17:55)
[2016-08-08] MEDS: Sodium Chloride 0.9% 1,000 ML IV SCH (10:53)
--- NOTE | 2016-08-08 15:12 | CP.CCUPN ---
<Keegan Aponte - Last Filed: 08/08/16 15:08> CCU Subjective - Physician Review Subjective (Free Text): 08/08/16 15:11 PGY-1 ICU progress note Pt seen and examined at bedside. Pt intubated and sedated. No overnight events. Critical Care Time Spent (in minutes): 35 CCU Objective - Vital Signs / Intake & Output Vital Signs (Last 4 hours): Vital Signs Temp Pulse Resp BP Pulse Ox 08/08/16 13:00 89 19 100 08/08/16 12:56 89 13 117/69 100 08/08/16 12:00 97.0 F L 08/08/16 11:56 84 20 134/68 99 Intake and Output (Last 8hrs): Intake & Output 08/08/16 08/08/16 08/08/16 06:59 14:59 22:59 Intake Total 1023.8 957.8 Output Total 315 290 Balance 708.8 667.8 Intake: IV 0 Intake, IV Amount 673.8 557.8 Left Hand 625 525 Right Hand 48.8 32.8 Oral 100 Tube Feeding 350 300 Output: Urine 315 290 Urethral (Devlin) 315 290 Other: # Bowel Movements 1 - Physical Exam Head: Positive for: Other (bandages in place and C/D/I) Pupils: Positive for: PERRL Extroacular Muscles: Positive for: EOMI Respiratory/Chest: Positive for: Clear to Auscultation, Good Air Exchange Cardiovascular: Positive for: Regular Rate and Rhythm, Normal S1, S2 Abdomen: Positive for: Normal Bowel Sounds. Negative for: Tenderness, Distention Upper Extremity: Positive for: NORMAL PULSES, Neurovascularly Intact Lower Extremity: Positive for: NORMAL PULSES, Neurovascularly Intact Neurological: Positive for: Motor Func Grossly Intact Skin: Positive for: Warm, Dry Psychiatric: Positive for: Other - Medications Active Medications: Active Medications Generic Name Dose Route Start Last Admin Trade Name Freq PRN Reason Stop Dose Admin Acetaminophen/Butalbital/Caffeine 1 tab 08/07/16 10:11 08/08/16 10:50 Fioricet PO 1 tab Q4 PRN Administration Headache Diphenhydramine HCl 50 mg 08/08/16 18:00 Benadryl IVP BID GORDO Famotidine 20 mg 08/05/16 10:00 08/08/16 10:50 Pepcid IVP 20 mg DAILY GORDO Administration Home Med 1 drop 08/07/16 18:00 08/08/16 10:52 Patient's Own Drops OS 1 drop BID GORDO Administration Hydralazine HCl 10 mg 08/04/16 18:30 08/06/16 20:38 Apresoline IVP 10 mg Q6H PRN Administration Systolic Blood Pressure Levetiracetam 500 mg/ Sodium 105 mls @ 420 mls/hr 08/04/16 18:00 08/08/16 05: 31 Chloride IVPB 420 mls/hr Q12H GORDO Administration Sodium Chloride 1,000 mls @ 75 mls/hr 08/07/16 07:00 08/08/16 10:53 Sodium Chloride 0.9% IV 75 mls/hr .[id number] GORDO Administration Propofol 1,000 mg in 100 mls @ 2.041 mls/hr 08/07/16 10:09 08/08/16 07:00 Diprivan IV 10 mcg/kg/min .Q24H PRN 4.082 mls/hr TITRATE PER MD ORDER Titration Protocol 5 MCG/KG/MIN Insulin Human Regular 0 unit 07/31/16 12:00 08/08/16 12:12 Novolin R SC Not Given Q6H [facility] Protocol Labetalol HCl 10 mg 08/05/16 14:59 08/07/16 01:14 Trandate IVP 10 mg Q1 PRN Administration SBP> 160 mm Hg Latanoprost 0 ml 07/31/16 22:00 08/07/16 23:30 Xalatan Opht OD 2.5 ml HS GORDO Administration Lisinopril 20 mg 08/04/16 18:32 08/08/16 10:44 Zestril PO Not Given DAILY GORDO Sennosides 8.6 mg 08/08/16 00:43 08/08/16 10:50 Senokot Tab NG 8.6 mg BID GORDO Administration Timolol Maleate 0 drop 07/31/16 11:15 08/08/16 10:51 Timoptic 0.5% Ophth Soln OD 1 drop DAILY GORDO Administration - Patient Studies Lab Studies: Microbiology Studies 08/07/16 10:22 Gram Stain - Final Trachasp 08/04/16 18:00 Blood Culture - Preliminary Blood NO GROWTH AFTER 3 DAYS 08/04/16 17:45 Blood Culture - Preliminary Blood NO GROWTH AFTER 3 DAYS Lab Studies 08/08/16 08/08/16 08/08/16 Range/Units Unknown 11:37 06:33 WBC (4.8-10.8) K/uL RBC (4.40-5.90) Mil/uL Hgb (12.0-18.0) g/dL Hct (35.0-51.0) % MCV (80.0-94.0) fL MCH (27.0-31.0) pg MCHC (33.0-37.0) g/dL RDW (11.5-14.5) % Plt Count (130-400) K/uL MPV (7.2-11.7) fL Neut % (Auto) (50.0-75.0) % Lymph % (Auto) (20.0-40.0) % [place] % (Auto) (0.0-10.0) % Eos % (Auto) (0.0-4.0) % Baso % (Auto) (0.0-2.0) % Neut # (1.8-7.0) K/uL Lymph # (1.0-4.3) K/uL [place] # (0.0-0.8) K/uL Eos # (0.0-0.7) K/uL Baso # (0.0-0.2) K/uL Puncture Site pCO2 (35-45) mm/Hg pO2 (80-100) mm/Hg HCO3 (21-28) mmol/L ABG pH (7.35-7.45) ABG Total CO2 (22-28) mmol/L ABG O2 Saturation (95-98) % ABG Base Excess (-2.0-3.0) mmol/L ABG Hemoglobin (11.7-17.4) g/dL ABG Carboxyhemoglobin (0.5-1.5) % POC ABG HHb (Measured) (0.0-5.0) % ABG Methemoglobin (0.0-3.0) % David Test A-a O2 Difference mm/Hg Respiratory Index Hgb O2 Saturation (95.0-98.0) % Mechanical Rate FiO2 % Tidal Volume PEEP Sodium 134 (132-148) mmol/L Potassium 3.6 (3.6-5.2) mmol/L Chloride 103 (98-107) mmol/L Carbon Dioxide 23 (22-30) mmol/L Anion Gap 12 (10-20) BUN 10 (9-20) mg/dL Creatinine 0.6 L (0.8-1.5) MG/DL Est GFR ( Amer) > 60 Est GFR (Non-Af Amer) > 60 POC Glucose (mg/dL) 145 H (65-110) mg/dL Random Glucose 173 H (75-110) mg/dL Calcium 7.9 L (8.6-10.4) mg/dl Phosphorus 2.5 (2.5-4.5) mg/dL Magnesium 2.1 (1.6-2.3) mg/dL Total Bilirubin 0.7 (0.2-1.3) mg/dL AST 100 H D (17-59) U/L ALT 118 H D (21-72) U/L Alkaline Phosphatase 139 H D (38-126) U/L Total Protein 5.7 L (6.3-8.3) g/dL Albumin 2.7 L (3.5-5.0) g/dL Globulin 2.9 (2.2-3.9) gm/dL Albumin/Globulin Ratio 0.9 L (1.0-2.1) Procalcitonin 0.18 L (0.19-0.49) NG/ML 08/08/16 08/08/16 08/08/16 Range/Units 06:33 06:17 04:30 WBC 9.6 (4.8-10.8) K/uL RBC 3.60 L (4.40-5.90) Mil/uL Hgb 9.7 L (12.0-18.0) g/dL Hct 29.0 L (35.0-51.0) % MCV 80.5 (80.0-94.0) fL MCH 27.1 (27.0-31.0) pg MCHC 33.6 (33.0-37.0) g/dL RDW 14.0 (11.5-14.5) % Plt Count 253 (130-400) K/uL MPV 9.0 (7.2-11.7) fL Neut % (Auto) 64.7 (50.0-75.0) % Lymph % (Auto) 15.7 L (20.0-40.0) % [place] % (Auto) 9.3 (0.0-10.0) % Eos % (Auto) 10.1 H (0.0-4.0) % Baso % (Auto) 0.2 (0.0-2.0) % Neut # 6.2 (1.8-7.0) K/uL Lymph # 1.5 (1.0-4.3) K/uL [place] # 0.9 H (0.0-0.8) K/uL Eos # 1.0 H (0.0-0.7) K/uL Baso # 0.0 (0.0-0.2) K/uL Puncture Site Rr pCO2 29 L (35-45) mm/Hg pO2 198 H (80-100) mm/Hg HCO3 23.9 (21-28) mmol/L ABG pH 7.48 H (7.35-7.45) ABG Total CO2 22.5 (22-28) mmol/L ABG O2 Saturation 100.7 H (95-98) % ABG Base Excess -1.4 (-2.0-3.0) mmol/L ABG Hemoglobin 8.4 L (11.7-17.4) g/dL ABG Carboxyhemoglobin 1.6 H (0.5-1.5) % POC ABG HHb (Measured) -0.7 L (0.0-5.0) % ABG Methemoglobin 0.4 (0.0-3.0) % David Test Pos A-a O2 Difference 122.0 mm/Hg Respiratory Index 0.6 Hgb O2 Saturation 98.7 H (95.0-98.0) % Mechanical Rate 16 FiO2 50.0 % Tidal Volume 500 PEEP 5 Sodium (132-148) mmol/L Potassium (3.6-5.2) mmol/L Chloride (98-107) mmol/L Carbon Dioxide (22-30) mmol/L Anion Gap (10-20) BUN (9-20) mg/dL Creatinine (0.8-1.5) MG/DL Est GFR ( Amer) Est GFR (Non-Af Amer) POC Glucose (mg/dL) 203 H (65-110) mg/dL Random Glucose (75-110) mg/dL Calcium (8.6-10.4) mg/dl Phosphorus (2.5-4.5) mg/dL Magnesium (1.6-2.3) mg/dL Total Bilirubin (0.2-1.3) mg/dL AST (17-59) U/L ALT (21-72) U/L Alkaline Phosphatase (38-126) U/L Total Protein (6.3-8.3) g/dL Albumin (3.5-5.0) g/dL Globulin (2.2-3.9) gm/dL Albumin/Globulin Ratio (1.0-2.1) Procalcitonin (0.19-0.49) NG/ML 08/08/16 08/07/16 Range/Units 00:13 18:04 WBC (4.8-10.8) K/uL RBC (4.40-5.90) Mil/uL Hgb (12.0-18.0) g/dL Hct (35.0-51.0) % MCV (80.0-94.0) fL MCH (27.0-31.0) pg MCHC (33.0-37.0) g/dL RDW (11.5-14.5) % Plt Count (130-400) K/uL MPV (7.2-11.7) fL Neut % (Auto) (50.0-75.0) % Lymph % (Auto) (20.0-40.0) % [place] % (Auto) (0.0-10.0) % Eos % (Auto) (0.0-4.0) % Baso % (Auto) (0.0-2.0) % Neut # (1.8-7.0) K/uL Lymph # (1.0-4.3) K/uL [place] # (0.0-0.8) K/uL Eos # (0.0-0.7) K/uL Baso # (0.0-0.2) K/uL Puncture Site pCO2 (35-45) mm/Hg pO2 (80-100) mm/Hg HCO3 (21-28) mmol/L ABG pH (7.35-7.45) ABG Total CO2 (22-28) mmol/L ABG O2 Saturation (95-98) % ABG Base Excess (-2.0-3.0) mmol/L ABG Hemoglobin (11.7-17.4) g/dL ABG Carboxyhemoglobin (0.5-1.5) % POC ABG HHb (Measured) (0.0-5.0) % ABG Methemoglobin (0.0-3.0) % David Test A-a O2 Difference mm/Hg Respiratory Index Hgb O2 Saturation (95.0-98.0) % Mechanical Rate FiO2 % Tidal Volume PEEP Sodium (132-148) mmol/L Potassium (3.6-5.2) mmol/L Chloride (98-107) mmol/L Carbon Dioxide (22-30) mmol/L Anion Gap (10-20) BUN (9-20) mg/dL Creatinine (0.8-1.5) MG/DL Est GFR ( Amer) Est GFR (Non-Af Amer) POC Glucose (mg/dL) 166 H 170 H (65-110) mg/dL Random Glucose (75-110) mg/dL Calcium (8.6-10.4) mg/dl Phosphorus (2.5-4.5) mg/dL Magnesium (1.6-2.3) mg/dL Total Bilirubin (0.2-1.3) mg/dL AST (17-59) U/L ALT (21-72) U/L Alkaline Phosphatase (38-126) U/L Total Protein (6.3-8.3) g/dL Albumin (3.5-5.0) g/dL Globulin (2.2-3.9) gm/dL Albumin/Globulin Ratio (1.0-2.1) Procalcitonin (0.19-0.49) NG/ML Laboratory Results - last 24 hr 08/07/16 08/08/16 08/08/16 18:04 00:13 04:30 WBC RBC Hgb Hct MCV MCH MCHC RDW Plt Count MPV Neut % (Auto) Lymph % (Auto) [place] % (Auto) Eos % (Auto) Baso % (Auto) Neut # Lymph # [place] # Eos # Baso # Puncture Site Rr pCO2 29 L pO2 198 H HCO3 23.9 ABG pH 7.48 H ABG Total CO2 22.5 ABG O2 Saturation 100.7 H ABG Base Excess -1.4 ABG Hemoglobin 8.4 L ABG Carboxyhemoglobin 1.6 H POC ABG HHb (Measured) -0.7 L ABG Methemoglobin 0.4 David Test Pos A-a O2 Difference 122.0 Respiratory Index 0.6 Hgb O2 Saturation 98.7 H Mechanical Rate 16 FiO2 50.0 Tidal Volume 500 PEEP 5 Sodium Potassium Chloride Carbon Dioxide Anion Gap BUN Creatinine Est GFR ( Amer) Est GFR (Non-Af Amer) POC Glucose (mg/dL) 170 H 166 H Random Glucose Calcium Phosphorus Magnesium Total Bilirubin AST ALT Alkaline Phosphatase Total Protein Albumin Globulin Albumin/Globulin Ratio Procalcitonin 08/08/16 08/08/16 08/08/16 06:17 06:33 06:33 WBC 9.6 RBC 3.60 L Hgb 9.7 L Hct 29.0 L MCV 80.5 MCH 27.1 MCHC 33.6 RDW 14.0 Plt Count 253 MPV 9.0 Neut % (Auto) 64.7 Lymph % (Auto) 15.7 L [place] % (Auto) 9.3 Eos % (Auto) 10.1 H Baso % (Auto) 0.2 Neut # 6.2 Lymph # 1.5 [place] # 0.9 H Eos # 1.0 H Baso # 0.0 Puncture Site pCO2 pO2 HCO3 ABG pH ABG Total CO2 ABG O2 Saturation ABG Base Excess ABG Hemoglobin ABG Carboxyhemoglobin POC ABG HHb (Measured) ABG Methemoglobin David Test A-a O2 Difference Respiratory Index Hgb O2 Saturation Mechanical Rate FiO2 Tidal Volume PEEP Sodium 134 Potassium 3.6 Chloride 103 Carbon Dioxide 23 Anion Gap 12 BUN 10 Creatinine 0.6 L Est GFR ( Amer) > 60 Est GFR (Non-Af Amer) > 60 POC Glucose (mg/dL) 203 H Random Glucose 173 H Calcium 7.9 L Phosphorus 2.5 Magnesium 2.1 Total Bilirubin 0.7 AST 100 H D ALT 118 H D Alkaline Phosphatase 139 H D Total Protein 5.7 L Albumin 2.7 L Globulin 2.9 Albumin/Globulin Ratio 0.9 L Procalcitonin 08/08/16 08/08/16 11:37 Unknown WBC RBC Hgb Hct MCV MCH MCHC RDW Plt Count MPV Neut % (Auto) Lymph % (Auto) [place] % (Auto) Eos % (Auto) Baso % (Auto) Neut # Lymph # [place] # Eos # Baso # Puncture Site pCO2 pO2 HCO3 ABG pH ABG Total CO2 ABG O2 Saturation ABG Base Excess ABG Hemoglobin ABG Carboxyhemoglobin POC ABG HHb (Measured) ABG Methemoglobin David Test A-a O2 Difference Respiratory Index Hgb O2 Saturation Mechanical Rate FiO2 Tidal Volume PEEP Sodium Potassium Chloride Carbon Dioxide Anion Gap BUN Creatinine Est GFR ( Amer) Est GFR (Non-Af Amer) POC Glucose (mg/dL) 145 H Random Glucose Calcium Phosphorus Magnesium Total Bilirubin AST ALT Alkaline Phosphatase Total Protein Albumin Globulin Albumin/Globulin Ratio Procalcitonin 0.18 L Fingerstick Blood Sugar Results: 145 Review of Systems - Review of Systems Systems not reviewed;Unavailable: Intubated Critical Care Progress Note - Nutrition Nutrition: Nutrition Category Date Time Status NPO Diet [DIET] Diets 08/04/16 Breakfast Active Assessment/Plan - Assessment and Plan (Free Text) Assessment: This is a 75 yo M with right subdural hematoma s/p naomy hole evacuation x 2, POD #7 and 3, now intubated for protection of airway secondary to severe agitation. Plan: Neuro: Intubated and sedated for airway protection Keppra for seizure ppx Repeat CT - Status post drainage of right subdural hematoma. A drainage catheter is seen in the extra-axial space. There is air and fluid in the sub dural space with an average thickness of 9 mm. No change Drain removed yesterday Neurosurg following Continue to monitor mental status Cardiovascular: Hemodynamically stable Continue current med regimen Pulmonary: Intubated Follow ABGs/CXR Monitor O2 sats Gastrointestinal: Tube feeds No acute issues Hematology: No issues, monitor H/H Endocrine: No acute issues Renal: Cont IVF Monitor electrolytes and replete as needed Strict I/O Infectious Disease: Afebrile, no leukocytosis GI Prophylaxis: Pepcid DVT Prophylaxis: Heparin <Justino Kumari S - Last Filed: 08/08/16 17:35> CCU Objective - Vital Signs / Intake & Output Vital Signs (Last 4 hours): Vital Signs Pulse Resp BP Pulse Ox 08/08/16 16:00 78 15 100 08/08/16 15:56 83 15 133/65 100 08/08/16 14:56 83 15 97/51 L 100 08/08/16 13:57 101 H 25 H 150/85 100 Intake and Output (Last 8hrs): Intake & Output 08/08/16 08/08/16 08/08/16 06:59 14:59 22:59 Intake Total 1023.8 1091.0 266.4 Output Total 315 330 70 Balance 708.8 761.0 196.4 Intake: IV 0 Intake, IV Amount 673.8 641.0 166.4 Left Hand 625 600 150 Right Hand 48.8 41.0 16.4 Oral 100 Tube Feeding 350 350 100 Output: Urine 315 330 70 Urethral (Devlin) 315 330 70 Other: # Bowel Movements 0 0 - Medications Active Medications: Active Medications Generic Name Dose Route Start Last Admin Trade Name Freq PRN Reason Stop Dose Admin Acetaminophen/Butalbital/Caffeine 1 tab 08/07/16 10:11 08/08/16 10:50 Fioricet PO 1 tab Q4 PRN Administration Headache Diphenhydramine HCl 50 mg 08/08/16 18:00 Benadryl IVP BID GORDO Famotidine 20 mg 08/05/16 10:00 08/08/16 10:50 Pepcid IVP 20 mg DAILY GORDO Administration Home Med 1 drop 08/07/16 18:00 08/08/16 10:52 Patient's Own Drops OS 1 drop BID GORDO Administration Hydralazine HCl 10 mg 08/04/16 18:30 08/06/16 20:38 Apresoline IVP 10 mg Q6H PRN Administration Systolic Blood Pressure Levetiracetam 500 mg/ Sodium 105 mls @ 420 mls/hr 08/04/16 18:00 08/08/16 05: 31 Chloride IVPB 420 mls/hr Q12H GORDO Administration Sodium Chloride 1,000 mls @ 75 mls/hr 08/07/16 07:00 08/08/16 10:53 Sodium Chloride 0.9% IV 75 mls/hr .[id number] GORDO Administration Propofol 1,000 mg in 100 mls @ 2.041 mls/hr 08/07/16 10:09 08/08/16 07:00 Diprivan IV 10 mcg/kg/min .Q24H PRN 4.082 mls/hr TITRATE PER MD ORDER Titration Protocol 5 MCG/KG/MIN Insulin Human Regular 0 unit 07/31/16 12:00 08/08/16 12:12 Novolin R SC Not Given Q6H [facility] Protocol Labetalol HCl 10 mg 08/05/16 14:59 08/07/16 01:14 Trandate IVP 10 mg Q1 PRN Administration SBP> 160 mm Hg Latanoprost 0 ml 07/31/16 22:00 08/07/16 23:30 Xalatan Opht OD 2.5 ml HS GORDO Administration Lisinopril 20 mg 08/04/16 18:32 08/08/16 10:44 Zestril PO Not Given DAILY GORDO Sennosides 8.6 mg 08/08/16 00:43 08/08/16 10:50 Senokot Tab NG 8.6 mg BID GORDO Administration Timolol Maleate 0 drop 07/31/16 11:15 08/08/16 10:51 Timoptic 0.5% Ophth Soln OD 1 drop DAILY GRODO Administration - Patient Studies Lab Studies: Microbiology Studies 08/07/16 10:22 Gram Stain - Final Trachasp 08/04/16 18:00 Blood Culture - Preliminary Blood NO GROWTH AFTER 3 DAYS 08/04/16 17:45 Blood Culture - Preliminary Blood NO GROWTH AFTER 3 DAYS Lab Studies 08/08/16 08/08/16 08/08/16 Range/Units Unknown 11:37 06:33 WBC (4.8-10.8) K/uL RBC (4.40-5.90) Mil/uL Hgb (12.0-18.0) g/dL Hct (35.0-51.0) % MCV (80.0-94.0) fL MCH (27.0-31.0) pg MCHC (33.0-37.0) g/dL RDW (11.5-14.5) % Plt Count (130-400) K/uL MPV (7.2-11.7) fL Neut % (Auto) (50.0-75.0) % Lymph % (Auto) (20.0-40.0) % [place] % (Auto) (0.0-10.0) % Eos % (Auto) (0.0-4.0) % Baso % (Auto) (0.0-2.0) % Neut # (1.8-7.0) K/uL Lymph # (1.0-4.3) K/uL [place] # (0.0-0.8) K/uL Eos # (0.0-0.7) K/uL Baso # (0.0-0.2) K/uL Puncture Site pCO2 (35-45) mm/Hg pO2 (80-100) mm/Hg HCO3 (21-28) mmol/L ABG pH (7.35-7.45) ABG Total CO2 (22-28) mmol/L ABG O2 Saturation (95-98) % ABG Base Excess (-2.0-3.0) mmol/L ABG Hemoglobin (11.7-17.4) g/dL ABG Carboxyhemoglobin (0.5-1.5) % POC ABG HHb (Measured) (0.0-5.0) % ABG Methemoglobin (0.0-3.0) % David Test A-a O2 Difference mm/Hg Respiratory Index Hgb O2 Saturation (95.0-98.0) % Mechanical Rate FiO2 % Tidal Volume PEEP Sodium 134 (132-148) mmol/L Potassium 3.6 (3.6-5.2) mmol/L Chloride 103 (98-107) mmol/L Carbon Dioxide 23 (22-30) mmol/L Anion Gap 12 (10-20) BUN 10 (9-20) mg/dL Creatinine 0.6 L (0.8-1.5) MG/DL Est GFR ( Amer) > 60 Est GFR (Non-Af Amer) > 60 POC Glucose (mg/dL) 145 H (65-110) mg/dL Random Glucose 173 H (75-110) mg/dL Calcium 7.9 L (8.6-10.4) mg/dl Phosphorus 2.5 (2.5-4.5) mg/dL Magnesium 2.1 (1.6-2.3) mg/dL Total Bilirubin 0.7 (0.2-1.3) mg/dL AST 100 H D (17-59) U/L ALT 118 H D (21-72) U/L Alkaline Phosphatase 139 H D (38-126) U/L Total Protein 5.7 L (6.3-8.3) g/dL Albumin 2.7 L (3.5-5.0) g/dL Globulin 2.9 (2.2-3.9) gm/dL Albumin/Globulin Ratio 0.9 L (1.0-2.1) Procalcitonin 0.18 L (0.19-0.49) NG/ML 08/08/16 08/08/16 08/08/16 Range/Units 06:33 06:17 04:30 WBC 9.6 (4.8-10.8) K/uL RBC 3.60 L (4.40-5.90) Mil/uL Hgb 9.7 L (12.0-18.0) g/dL Hct 29.0 L (35.0-51.0) % MCV 80.5 (80.0-94.0) fL MCH 27.1 (27.0-31.0) pg MCHC 33.6 (33.0-37.0) g/dL RDW 14.0 (11.5-14.5) % Plt Count 253 (130-400) K/uL MPV 9.0 (7.2-11.7) fL Neut % (Auto) 64.7 (50.0-75.0) % Lymph % (Auto) 15.7 L (20.0-40.0) % [place] % (Auto) 9.3 (0.0-10.0) % Eos % (Auto) 10.1 H (0.0-4.0) % Baso % (Auto) 0.2 (0.0-2.0) % Neut # 6.2 (1.8-7.0) K/uL Lymph # 1.5 (1.0-4.3) K/uL [place] # 0.9 H (0.0-0.8) K/uL Eos # 1.0 H (0.0-0.7) K/uL Baso # 0.0 (0.0-0.2) K/uL Puncture Site Rr pCO2 29 L (35-45) mm/Hg pO2 198 H (80-100) mm/Hg HCO3 23.9 (21-28) mmol/L ABG pH 7.48 H (7.35-7.45) ABG Total CO2 22.5 (22-28) mmol/L ABG O2 Saturation 100.7 H (95-98) % ABG Base Excess -1.4 (-2.0-3.0) mmol/L ABG Hemoglobin 8.4 L (11.7-17.4) g/dL ABG Carboxyhemoglobin 1.6 H (0.5-1.5) % POC ABG HHb (Measured) -0.7 L (0.0-5.0) % ABG Methemoglobin 0.4 (0.0-3.0) % David Test Pos A-a O2 Difference 122.0 mm/Hg Respiratory Index 0.6 Hgb O2 Saturation 98.7 H (95.0-98.0) % Mechanical Rate 16 FiO2 50.0 % Tidal Volume 500 PEEP 5 Sodium (132-148) mmol/L Potassium (3.6-5.2) mmol/L Chloride (98-107) mmol/L Carbon Dioxide (22-30) mmol/L Anion Gap (10-20) BUN (9-20) mg/dL Creatinine (0.8-1.5) MG/DL Est GFR ( Amer) Est GFR (Non-Af Amer) POC Glucose (mg/dL) 203 H (65-110) mg/dL Random Glucose (75-110) mg/dL Calcium (8.6-10.4) mg/dl Phosphorus (2.5-4.5) mg/dL Magnesium (1.6-2.3) mg/dL Total Bilirubin (0.2-1.3) mg/dL AST (17-59) U/L ALT (21-72) U/L Alkaline Phosphatase (38-126) U/L Total Protein (6.3-8.3) g/dL Albumin (3.5-5.0) g/dL Globulin (2.2-3.9) gm/dL Albumin/Globulin Ratio (1.0-2.1) Procalcitonin (0.19-0.49) NG/ML 08/08/16 08/07/16 Range/Units 00:13 18:04 WBC (4.8-10.8) K/uL RBC (4.40-5.90) Mil/uL Hgb (12.0-18.0) g/dL Hct (35.0-51.0) % MCV (80.0-94.0) fL MCH (27.0-31.0) pg MCHC (33.0-37.0) g/dL RDW (11.5-14.5) % Plt Count (130-400) K/uL MPV (7.2-11.7) fL Neut % (Auto) (50.0-75.0) % Lymph % (Auto) (20.0-40.0) % [place] % (Auto) (0.0-10.0) % Eos % (Auto) (0.0-4.0) % Baso % (Auto) (0.0-2.0) % Neut # (1.8-7.0) K/uL Lymph # (1.0-4.3) K/uL [place] # (0.0-0.8) K/uL Eos # (0.0-0.7) K/uL Baso # (0.0-0.2) K/uL Puncture Site pCO2 (35-45) mm/Hg pO2 (80-100) mm/Hg HCO3 (21-28) mmol/L ABG pH (7.35-7.45) ABG Total CO2 (22-28) mmol/L ABG O2 Saturation (95-98) % ABG Base Excess (-2.0-3.0) mmol/L ABG Hemoglobin (11.7-17.4) g/dL ABG Carboxyhemoglobin (0.5-1.5) % POC ABG HHb (Measured) (0.0-5.0) % ABG Methemoglobin (0.0-3.0) % David Test A-a O2 Difference mm/Hg Respiratory Index Hgb O2 Saturation (95.0-98.0) % Mechanical Rate FiO2 % Tidal Volume PEEP Sodium (132-148) mmol/L Potassium (3.6-5.2) mmol/L Chloride (98-107) mmol/L Carbon Dioxide (22-30) mmol/L Anion Gap (10-20) BUN (9-20) mg/dL Creatinine (0.8-1.5) MG/DL Est GFR ( Amer) Est GFR (Non-Af Amer) POC Glucose (mg/dL) 166 H 170 H (65-110) mg/dL Random Glucose (75-110) mg/dL Calcium (8.6-10.4) mg/dl Phosphorus (2.5-4.5) mg/dL Magnesium (1.6-2.3) mg/dL Total Bilirubin (0.2-1.3) mg/dL AST (17-59) U/L ALT (21-72) U/L Alkaline Phosphatase (38-126) U/L Total Protein (6.3-8.3) g/dL Albumin (3.5-5.0) g/dL Globulin (2.2-3.9) gm/dL Albumin/Globulin Ratio (1.0-2.1) Procalcitonin (0.19-0.49) NG/ML Laboratory Results - last 24 hr 08/07/16 08/08/16 08/08/16 18:04 00:13 04:30 WBC RBC Hgb Hct MCV MCH MCHC RDW Plt Count MPV Neut % (Auto) Lymph % (Auto) [place] % (Auto) Eos % (Auto) Baso % (Auto) Neut # Lymph # [place] # Eos # Baso # Puncture Site Rr pCO2 29 L pO2 198 H HCO3 23.9 ABG pH 7.48 H ABG Total CO2 22.5 ABG O2 Saturation 100.7 H ABG Base Excess -1.4 ABG Hemoglobin 8.4 L ABG Carboxyhemoglobin 1.6 H POC ABG HHb (Measured) -0.7 L ABG Methemoglobin 0.4 David Test Pos A-a O2 Difference 122.0 Respiratory Index 0.6 Hgb O2 Saturation 98.7 H Mechanical Rate 16 FiO2 50.0 Tidal Volume 500 PEEP 5 Sodium Potassium Chloride Carbon Dioxide Anion Gap BUN Creatinine Est GFR ( Amer) Est GFR (Non-Af Amer) POC Glucose (mg/dL) 170 H 166 H Random Glucose Calcium Phosphorus Magnesium Total Bilirubin AST ALT Alkaline Phosphatase Total Protein Albumin Globulin Albumin/Globulin Ratio Procalcitonin 08/08/16 08/08/16 08/08/16 06:17 06:33 06:33 WBC 9.6 RBC 3.60 L Hgb 9.7 L Hct 29.0 L MCV 80.5 MCH 27.1 MCHC 33.6 RDW 14.0 Plt Count 253 MPV 9.0 Neut % (Auto) 64.7 Lymph % (Auto) 15.7 L [place] % (Auto) 9.3 Eos % (Auto) 10.1 H Baso % (Auto) 0.2 Neut # 6.2 Lymph # 1.5 [place] # 0.9 H Eos # 1.0 H Baso # 0.0 Puncture Site pCO2 pO2 HCO3 ABG pH ABG Total CO2 ABG O2 Saturation ABG Base Excess ABG Hemoglobin ABG Carboxyhemoglobin POC ABG HHb (Measured) ABG Methemoglobin David Test A-a O2 Difference Respiratory Index Hgb O2 Saturation Mechanical Rate FiO2 Tidal Volume PEEP Sodium 134 Potassium 3.6 Chloride 103 Carbon Dioxide 23 Anion Gap 12 BUN 10 Creatinine 0.6 L Est GFR ( Amer) > 60 Est GFR (Non-Af Amer) > 60 POC Glucose (mg/dL) 203 H Random Glucose 173 H Calcium 7.9 L Phosphorus 2.5 Magnesium 2.1 Total Bilirubin 0.7 AST 100 H D ALT 118 H D Alkaline Phosphatase 139 H D Total Protein 5.7 L Albumin 2.7 L Globulin 2.9 Albumin/Globulin Ratio 0.9 L Procalcitonin 08/08/16 08/08/16 11:37 Unknown WBC RBC Hgb Hct MCV MCH MCHC RDW Plt Count MPV Neut % (Auto) Lymph % (Auto) [place] % (Auto) Eos % (Auto) Baso % (Auto) Neut # Lymph # [place] # Eos # Baso # Puncture Site pCO2 pO2 HCO3 ABG pH ABG Total CO2 ABG O2 Saturation ABG Base Excess ABG Hemoglobin ABG Carboxyhemoglobin POC ABG HHb (Measured) ABG Methemoglobin David Test A-a O2 Difference Respiratory Index Hgb O2 Saturation Mechanical Rate FiO2 Tidal Volume PEEP Sodium Potassium Chloride Carbon Dioxide Anion Gap BUN Creatinine Est GFR ( Amer) Est GFR (Non-Af Amer) POC Glucose (mg/dL) 145 H Random Glucose Calcium Phosphorus Magnesium Total Bilirubin AST ALT Alkaline Phosphatase Total Protein Albumin Globulin Albumin/Globulin Ratio Procalcitonin 0.18 L Critical Care Progress Note - Nutrition Nutrition: Nutrition Category Date Time Status NPO Diet [DIET] Diets 08/04/16 Breakfast Active Attending/Attestation - Attestation I have personally seen and examined this patient.: Yes I have fully participated in the care of the patient.: Yes I have reviewed all pertinent clinical information: Yes Notes (Text): 08/08/16 17:33 Patient seen and examined in the intensive care unit. Case discussed with house staff in the morning rounds. Remains intubated on ventilatory support Patient very restless and agitated off sedation Drain removed yesterday by neurosurgery Continue Keppra Monitor LFTs CPAP trial in a.m.
[2016-08-08] MEDS: Propofol 10 mg/ml 1,000 MG/100 ML VIAL IV PRN (17:51)
[2016-08-08] MEDS: DiphenhydrAMINE 50 mg/ml Inj IVP SCH (17:53)
[2016-08-08] MEDS: Latanoprost 2.5 ml Opht Soln OD SCH (21:24)
[2016-08-09] MEDS: (Novolin R) Insulin Human Regular 100 units/ml vial SC SCH ×4 (00:36→18:32)
[2016-08-09] MEDS: Sodium Chloride 0.9% 1,000 ML IV SCH ×2 (01:18→14:47)
[2016-08-09] MEDS: Propofol 10 mg/ml 1,000 MG/100 ML VIAL IV PRN (01:34)
[2016-08-09] MEDS ORDERED: Sodium Chloride 0.9% 500 ML IV ONE (01:40)
[2016-08-09 04:41] LABS: ABG ALLEN TEST POS; ABG MECHANICAL RATE 14; ATERIAL BLOOD GAS PEEP 5; CARBOXYHEMOGLOBIN 1.3 % (0.5-1.5); DRAW SITE RR; HHB 0.3 % (0.0-5.0); METHEMOGLOBIN 1.4 % (0.0-3.0)
[2016-08-09] MEDS: levETIRAcetam 500 MG in Sodium Chloride 0.9% 100 ML IVPB SCH ×2 (05:49→17:06)
[2016-08-09] MEDS ORDERED: Digoxin 500 mcg/2ml (0.5 mg/2ml) Inj IVP ONE ×2 (05:58→06:40)
[2016-08-09 06:37] LABS: CHLORIDE 103 mmol/L (98-107); POTASSIUM 3.1 mmol/L (3.6-5.2); SODIUM 137 mmol/L (132-148)
[2016-08-09 06:39] LABS: BILIRUBIN,TOTAL 0.6 mg/dL (0.2-1.3); CARBON DIOXIDE 26 mmol/L (22-30); GFR AFRICAN-AMERICAN > 60
[2016-08-09 06:40] LABS: ALB/GLOB RATIO 0.9 (1.0-2.1); ALKALINE PHOSPHATASE 131 U/L (38-126); ALT/SGPT 100 U/L (21-72); AST/SGOT 64 U/L (17-59); BLOOD UREA NITROGEN 9 mg/dL (9-20); CALCIUM 7.4 mg/dl (8.6-10.4); GLUCOSE,RANDOM 163 mg/dL (75-110); MAGNESIUM 1.8 mg/dL (1.6-2.3); PHOSPHOROUS 3.3 mg/dL (2.5-4.5)
[2016-08-09 06:42] LABS: BASO % 0.4 % (0.0-2.0); EOS # 0.7 K/uL (0.0-0.7); EOS % 7.6 % (0.0-4.0); HEMATOCRIT 25.7 % (35.0-51.0); LYMPH # 1.7 K/uL (1.0-4.3); LYMPH % 17.3 % (20.0-40.0); MEAN CELL VOLUME 81.2 fL (80.0-94.0); MEAN CORPUSCULAR HEMOGLOBIN 27.2 pg (27.0-31.0); MEAN CORPUSCULAR HGB CONC 33.5 g/dL (33.0-37.0); MEAN PLATELET VOLUME 8.9 fL (7.2-11.7); MONO % 10.2 % (0.0-10.0); RED CELL DISTRIBUTION WIDTH 14.1 % (11.5-14.5); WHITE BLOOD COUNT 9.6 K/uL (4.8-10.8)
[2016-08-09 06:46] VITALS: PULSE 144
[2016-08-09] MEDS ORDERED: Potassium Chloride 20 mEq/15 ml LIQ UD PO ONE (07:53)
--- NOTE | 2016-08-09 08:14 | RAD ---
Chest x-ray single frontal view History: Pneumonia. Comparison: 08/08/2016 Findings: Lines and tubes in stable position. Patchy increased markings at the left lung base suggestive for atelectasis and or infiltrate with questionable trace left pleural effusion. Degenerative changes in the spine. Gaseous distention of bowel loops in the upper abdomen. Impression: Lines and tubes in stable position. Patchy increased markings at the left lung base suggestive for atelectasis and or infiltrate with questionable trace left pleural effusion.
[2016-08-09] MEDS: DiphenhydrAMINE 50 mg/ml Inj IVP SCH ×2 (09:58→17:15)
[2016-08-09] MEDS: [UNRECOGNIZED DRUG - OTHER] OS SCH ×2 (10:04→17:16)
--- NOTE | 2016-08-09 13:33 | CP.CCUPN ---
<Keegan Aponte - Last Filed: 08/09/16 13:30> CCU Subjective - Physician Review Subjective (Free Text): 08/09/16 13:30 PGY-1 ICU progress note Pt seen and examined at bedside. Pt intubated and sedated. No overnight events. Critical Care Time Spent (in minutes): 35 CCU Objective - Vital Signs / Intake & Output Vital Signs (Last 4 hours): Vital Signs Pulse Resp BP Pulse Ox 08/09/16 12:03 85 12 115/57 L 100 08/09/16 11:03 84 20 127/73 100 08/09/16 10:03 94 H 22 123/70 100 08/09/16 10:00 16 100 Intake and Output (Last 8hrs): Intake & Output 08/08/16 08/09/16 08/09/16 22:59 06:59 14:59 Intake Total 1235.6 1569.6 523.2 Output Total 335 445 250 Balance 900.6 1124.6 273.2 Weight 191 lb 12.835 oz Intake: IV 70 100 Intake, IV Amount 765.6 1119.6 323.2 Left Antecubital 100 Left Hand 600 1050 300 Left Wrist 15 Right Hand 65.6 69.6 8.2 Tube Feeding 400 350 200 Output: Urine 335 445 250 Urethral (Devlin) 335 445 250 Other: # Bowel Movements 0 - Physical Exam Head: Positive for: Other (bandages in place and C/D/I) Pupils: Positive for: PERRL, Other (left eye medial deviation - chronic) Extroacular Muscles: Positive for: EOMI Respiratory/Chest: Positive for: Clear to Auscultation, Good Air Exchange Cardiovascular: Positive for: Regular Rate and Rhythm, Normal S1, S2 Abdomen: Positive for: Normal Bowel Sounds. Negative for: Tenderness, Distention Upper Extremity: Positive for: NORMAL PULSES, Neurovascularly Intact Lower Extremity: Positive for: NORMAL PULSES, Neurovascularly Intact Neurological: Positive for: Motor Func Grossly Intact Skin: Positive for: Warm, Dry Psychiatric: Positive for: Alert, Agitated - Medications Active Medications: Active Medications Generic Name Dose Route Start Last Admin Trade Name Freq PRN Reason Stop Dose Admin Acetaminophen/Butalbital/Caffeine 1 tab 08/07/16 10:11 08/08/16 10:50 Fioricet PO 1 tab Q4 PRN Administration Headache Diphenhydramine HCl 50 mg 08/08/16 18:00 08/09/16 09:58 Benadryl IVP 50 mg BID GORDO Administration Famotidine 20 mg 08/05/16 10:00 08/09/16 09:51 Pepcid IVP 20 mg DAILY GORDO Administration Home Med 1 drop 08/07/16 18:00 08/09/16 10:04 Patient's Own Drops OS 1 drop BID GORDO Administration Levetiracetam 500 mg/ Sodium 105 mls @ 420 mls/hr 08/04/16 18:00 08/09/16 05: 49 Chloride IVPB 420 mls/hr Q12H GORDO Administration Sodium Chloride 1,000 mls @ 75 mls/hr 08/07/16 07:00 08/09/16 01:18 Sodium Chloride 0.9% IV 75 mls/hr .[id number] GORDO Administration Propofol 1,000 mg in 100 mls @ 2.041 mls/hr 08/07/16 10:09 08/09/16 01:34 Diprivan IV 20 mcg/kg/min .Q24H PRN 8.165 mls/hr TITRATE PER MD ORDER Administration Protocol 5 MCG/KG/MIN Diltiazem HCl 125 mg/ Dextrose 125 mls @ 5 mls/hr 08/09/16 07:00 08/09/16 08: 05 IV 5 mg/hr .Q24H GORDO 5 mls/hr Protocol Administration 5 MG/HR Insulin Human Regular 0 unit 07/31/16 12:00 08/09/16 12:00 Novolin R SC 2 unit Q6H GORDO Administration Protocol Labetalol HCl 10 mg 08/05/16 14:59 08/07/16 01:14 Trandate IVP 10 mg Q1 PRN Administration SBP> 160 mm Hg Latanoprost 0 ml 07/31/16 22:00 08/08/16 21:24 Xalatan Opht OD 0.1 ml HS GORDO Administration Lisinopril 20 mg 08/04/16 18:32 08/09/16 10:06 Zestril PO Not Given DAILY GORDO Metoprolol Tartrate 50 mg 08/09/16 07:30 08/09/16 10:06 Lopressor PO Not Given BIDBS GORDO Sennosides 8.6 mg 08/08/16 00:43 06/01/17 10:17 Senokot Tab NG 8.6 mg BID GORDO Administration Timolol Maleate 0 drop 07/31/16 11:15 08/09/16 10:04 Timoptic 0.5% Ophth Soln OD 1 drop DAILY GORDO Administration - Patient Studies Lab Studies: Microbiology Studies 08/07/16 10:22 Gram Stain - Final Trachasp Sputum Culture - Final NORMAL ORAL EMERY 08/04/16 18:00 Blood Culture - Preliminary Blood NO GROWTH AFTER 4 DAYS 08/04/16 17:45 Blood Culture - Preliminary Blood NO GROWTH AFTER 4 DAYS Lab Studies 08/09/16 08/09/16 08/09/16 Range/Units 11:32 06:20 06:20 WBC 9.6 (4.8-10.8) K/uL RBC 3.17 L (4.40-5.90) Mil/uL Hgb 8.6 L (12.0-18.0) g/dL Hct 25.7 L (35.0-51.0) % MCV 81.2 (80.0-94.0) fL MCH 27.2 (27.0-31.0) pg MCHC 33.5 (33.0-37.0) g/dL RDW 14.1 (11.5-14.5) % Plt Count 260 (130-400) K/uL MPV 8.9 (7.2-11.7) fL Neut % (Auto) 64.5 (50.0-75.0) % Lymph % (Auto) 17.3 L (20.0-40.0) % Young % (Auto) 10.2 H (0.0-10.0) % Eos % (Auto) 7.6 H (0.0-4.0) % Baso % (Auto) 0.4 (0.0-2.0) % Neut # 6.2 (1.8-7.0) K/uL Lymph # 1.7 (1.0-4.3) K/uL Young # 1.0 H (0.0-0.8) K/uL Eos # 0.7 (0.0-0.7) K/uL Baso # 0.0 (0.0-0.2) K/uL Puncture Site pCO2 (35-45) mm/Hg pO2 (80-100) mm/Hg HCO3 (21-28) mmol/L ABG pH (7.35-7.45) ABG Total CO2 (22-28) mmol/L ABG O2 Saturation (95-98) % ABG Base Excess (-2.0-3.0) mmol/L ABG Hemoglobin (11.7-17.4) g/dL ABG Carboxyhemoglobin (0.5-1.5) % POC ABG HHb (Measured) (0.0-5.0) % ABG Methemoglobin (0.0-3.0) % David Test A-a O2 Difference mm/Hg Respiratory Index Hgb O2 Saturation (95.0-98.0) % Mechanical Rate FiO2 % Tidal Volume PEEP Sodium 137 (132-148) mmol/L Potassium 3.1 L (3.6-5.2) mmol/L Chloride 103 (98-107) mmol/L Carbon Dioxide 26 (22-30) mmol/L Anion Gap 11 (10-20) BUN 9 (9-20) mg/dL Creatinine 0.6 L (0.8-1.5) MG/DL Est GFR ( Amer) > 60 Est GFR (Non-Af Amer) > 60 POC Glucose (mg/dL) 179 H (65-110) mg/dL Random Glucose 163 H (75-110) mg/dL Calcium 7.4 L (8.6-10.4) mg/dl Phosphorus 3.3 (2.5-4.5) mg/dL Magnesium 1.8 (1.6-2.3) mg/dL Total Bilirubin 0.6 (0.2-1.3) mg/dL AST 64 H D (17-59) U/L ALT 100 H (21-72) U/L Alkaline Phosphatase 131 H (38-126) U/L Total Protein 5.0 L (6.3-8.3) g/dL Albumin 2.4 L (3.5-5.0) g/dL Globulin 2.6 (2.2-3.9) gm/dL Albumin/Globulin Ratio 0.9 L (1.0-2.1) 08/09/16 08/09/16 08/09/16 Range/Units 05:48 04:25 00:23 WBC (4.8-10.8) K/uL RBC (4.40-5.90) Mil/uL Hgb (12.0-18.0) g/dL Hct (35.0-51.0) % MCV (80.0-94.0) fL MCH (27.0-31.0) pg MCHC (33.0-37.0) g/dL RDW (11.5-14.5) % Plt Count (130-400) K/uL MPV (7.2-11.7) fL Neut % (Auto) (50.0-75.0) % Lymph % (Auto) (20.0-40.0) % Young % (Auto) (0.0-10.0) % Eos % (Auto) (0.0-4.0) % Baso % (Auto) (0.0-2.0) % Neut # (1.8-7.0) K/uL Lymph # (1.0-4.3) K/uL Young # (0.0-0.8) K/uL Eos # (0.0-0.7) K/uL Baso # (0.0-0.2) K/uL Puncture Site Rr pCO2 29 L (35-45) mm/Hg pO2 203 H (80-100) mm/Hg HCO3 25.3 (21-28) mmol/L ABG pH 7.51 H (7.35-7.45) ABG Total CO2 24.0 (22-28) mmol/L ABG O2 Saturation 99.7 H (95-98) % ABG Base Excess 0.4 (-2.0-3.0) mmol/L ABG Hemoglobin 8.1 L (11.7-17.4) g/dL ABG Carboxyhemoglobin 1.3 (0.5-1.5) % POC ABG HHb (Measured) 0.3 (0.0-5.0) % ABG Methemoglobin 1.4 (0.0-3.0) % David Test Pos A-a O2 Difference 117.0 mm/Hg Respiratory Index 0.6 Hgb O2 Saturation 97.0 (95.0-98.0) % Mechanical Rate 14 FiO2 50.0 % Tidal Volume 500 PEEP 5 Sodium (132-148) mmol/L Potassium (3.6-5.2) mmol/L Chloride (98-107) mmol/L Carbon Dioxide (22-30) mmol/L Anion Gap (10-20) BUN (9-20) mg/dL Creatinine (0.8-1.5) MG/DL Est GFR ( Amer) Est GFR (Non-Af Amer) POC Glucose (mg/dL) 193 H 133 H (65-110) mg/dL Random Glucose (75-110) mg/dL Calcium (8.6-10.4) mg/dl Phosphorus (2.5-4.5) mg/dL Magnesium (1.6-2.3) mg/dL Total Bilirubin (0.2-1.3) mg/dL AST (17-59) U/L ALT (21-72) U/L Alkaline Phosphatase (38-126) U/L Total Protein (6.3-8.3) g/dL Albumin (3.5-5.0) g/dL Globulin (2.2-3.9) gm/dL Albumin/Globulin Ratio (1.0-2.1) 08/08/16 Range/Units 18:17 WBC (4.8-10.8) K/uL RBC (4.40-5.90) Mil/uL Hgb (12.0-18.0) g/dL Hct (35.0-51.0) % MCV (80.0-94.0) fL MCH (27.0-31.0) pg MCHC (33.0-37.0) g/dL RDW (11.5-14.5) % Plt Count (130-400) K/uL MPV (7.2-11.7) fL Neut % (Auto) (50.0-75.0) % Lymph % (Auto) (20.0-40.0) % Young % (Auto) (0.0-10.0) % Eos % (Auto) (0.0-4.0) % Baso % (Auto) (0.0-2.0) % Neut # (1.8-7.0) K/uL Lymph # (1.0-4.3) K/uL Young # (0.0-0.8) K/uL Eos # (0.0-0.7) K/uL Baso # (0.0-0.2) K/uL Puncture Site pCO2 (35-45) mm/Hg pO2 (80-100) mm/Hg HCO3 (21-28) mmol/L ABG pH (7.35-7.45) ABG Total CO2 (22-28) mmol/L ABG O2 Saturation (95-98) % ABG Base Excess (-2.0-3.0) mmol/L ABG Hemoglobin (11.7-17.4) g/dL ABG Carboxyhemoglobin (0.5-1.5) % POC ABG HHb (Measured) (0.0-5.0) % ABG Methemoglobin (0.0-3.0) % David Test A-a O2 Difference mm/Hg Respiratory Index Hgb O2 Saturation (95.0-98.0) % Mechanical Rate FiO2 % Tidal Volume PEEP Sodium (132-148) mmol/L Potassium (3.6-5.2) mmol/L Chloride (98-107) mmol/L Carbon Dioxide (22-30) mmol/L Anion Gap (10-20) BUN (9-20) mg/dL Creatinine (0.8-1.5) MG/DL Est GFR ( Amer) Est GFR (Non-Af Amer) POC Glucose (mg/dL) 219 H (65-110) mg/dL Random Glucose (75-110) mg/dL Calcium (8.6-10.4) mg/dl Phosphorus (2.5-4.5) mg/dL Magnesium (1.6-2.3) mg/dL Total Bilirubin (0.2-1.3) mg/dL AST (17-59) U/L ALT (21-72) U/L Alkaline Phosphatase (38-126) U/L Total Protein (6.3-8.3) g/dL Albumin (3.5-5.0) g/dL Globulin (2.2-3.9) gm/dL Albumin/Globulin Ratio (1.0-2.1) Laboratory Results - last 24 hr 08/08/16 08/09/16 08/09/16 18:17 00:23 04:25 WBC RBC Hgb Hct MCV MCH MCHC RDW Plt Count MPV Neut % (Auto) Lymph % (Auto) Young % (Auto) Eos % (Auto) Baso % (Auto) Neut # Lymph # Young # Eos # Baso # Puncture Site Rr pCO2 29 L pO2 203 H HCO3 25.3 ABG pH 7.51 H ABG Total CO2 24.0 ABG O2 Saturation 99.7 H ABG Base Excess 0.4 ABG Hemoglobin 8.1 L ABG Carboxyhemoglobin 1.3 POC ABG HHb (Measured) 0.3 ABG Methemoglobin 1.4 David Test Pos A-a O2 Difference 117.0 Respiratory Index 0.6 Hgb O2 Saturation 97.0 Mechanical Rate 14 FiO2 50.0 Tidal Volume 500 PEEP 5 Sodium Potassium Chloride Carbon Dioxide Anion Gap BUN Creatinine Est GFR ( Amer) Est GFR (Non-Af Amer) POC Glucose (mg/dL) 219 H 133 H Random Glucose Calcium Phosphorus Magnesium Total Bilirubin AST ALT Alkaline Phosphatase Total Protein Albumin Globulin Albumin/Globulin Ratio 08/09/16 08/09/16 08/09/16 05:48 06:20 06:20 WBC 9.6 RBC 3.17 L Hgb 8.6 L Hct 25.7 L MCV 81.2 MCH 27.2 MCHC 33.5 RDW 14.1 Plt Count 260 MPV 8.9 Neut % (Auto) 64.5 Lymph % (Auto) 17.3 L Young % (Auto) 10.2 H Eos % (Auto) 7.6 H Baso % (Auto) 0.4 Neut # 6.2 Lymph # 1.7 Young # 1.0 H Eos # 0.7 Baso # 0.0 Puncture Site pCO2 pO2 HCO3 ABG pH ABG Total CO2 ABG O2 Saturation ABG Base Excess ABG Hemoglobin ABG Carboxyhemoglobin POC ABG HHb (Measured) ABG Methemoglobin David Test A-a O2 Difference Respiratory Index Hgb O2 Saturation Mechanical Rate FiO2 Tidal Volume PEEP Sodium 137 Potassium 3.1 L Chloride 103 Carbon Dioxide 26 Anion Gap 11 BUN 9 Creatinine 0.6 L Est GFR ( Amer) > 60 Est GFR (Non-Af Amer) > 60 POC Glucose (mg/dL) 193 H Random Glucose 163 H Calcium 7.4 L Phosphorus 3.3 Magnesium 1.8 Total Bilirubin 0.6 AST 64 H D ALT 100 H Alkaline Phosphatase 131 H Total Protein 5.0 L Albumin 2.4 L Globulin 2.6 Albumin/Globulin Ratio 0.9 L 08/09/16 11:32 WBC RBC Hgb Hct MCV MCH MCHC RDW Plt Count MPV Neut % (Auto) Lymph % (Auto) Young % (Auto) Eos % (Auto) Baso % (Auto) Neut # Lymph # Young # Eos # Baso # Puncture Site pCO2 pO2 HCO3 ABG pH ABG Total CO2 ABG O2 Saturation ABG Base Excess ABG Hemoglobin ABG Carboxyhemoglobin POC ABG HHb (Measured) ABG Methemoglobin David Test A-a O2 Difference Respiratory Index Hgb O2 Saturation Mechanical Rate FiO2 Tidal Volume PEEP Sodium Potassium Chloride Carbon Dioxide Anion Gap BUN Creatinine Est GFR ( Amer) Est GFR (Non-Af Amer) POC Glucose (mg/dL) 179 H Random Glucose Calcium Phosphorus Magnesium Total Bilirubin AST ALT Alkaline Phosphatase Total Protein Albumin Globulin Albumin/Globulin Ratio Fingerstick Blood Sugar Results: 179 Review of Systems - Review of Systems Systems not reviewed;Unavailable: Intubated Critical Care Progress Note - Nutrition Nutrition: Nutrition Category Date Time Status NPO Diet [DIET] Diets 08/04/16 Breakfast Active Assessment/Plan - Assessment and Plan (Free Text) Assessment: This is a 75 yo M with right subdural hematoma s/p naomy hole evacuation x 2, POD #8 and 4, now intubated for protection of airway secondary to severe agitation. Plan: Neuro: Intubated, stopped sedation. Agitated at first but more calm now. Was able to communicate via corporate travel coordinator and nodded in understanding to plan of care Keppra for seizure ppx Repeat CT - Status post drainage of right subdural hematoma. A drainage catheter is seen in the extra-axial space. There is air and fluid in the sub dural space with an average thickness of 9 mm. No change Continue to monitor mental status Cardiovascular: Hemodynamically stable Continue current med regimen Pulmonary: Intubated - CPAP today. Will try to extubate tomorrow. Follow ABGs/CXR Monitor O2 sats Gastrointestinal: Tube feeds No acute issues Hematology: No issues, monitor H/H Endocrine: No acute issues Renal: Cont IVF Monitor electrolytes and replete as needed Strict I/O Good urine output Lasix started prior to extubation Infectious Disease: Afebrile, no leukocytosis GI Prophylaxis: Pepcid DVT Prophylaxis: Heparin <Chadd Garrett - Last Filed: 08/09/16 14:24> CCU Objective - Vital Signs / Intake & Output Vital Signs (Last 4 hours): Vital Signs Pulse Resp BP Pulse Ox 08/09/16 13:38 144/72 08/09/16 12:03 85 12 115/57 L 100 08/09/16 11:03 84 20 127/73 100 Intake and Output (Last 8hrs): Intake & Output 08/08/16 08/09/16 08/09/16 22:59 06:59 14:59 Intake Total 1235.6 1569.6 523.2 Output Total 335 445 250 Balance 900.6 1124.6 273.2 Weight 191 lb 12.835 oz Intake: IV 70 100 Intake, IV Amount 765.6 1119.6 323.2 Left Antecubital 100 Left Hand 600 1050 300 Left Wrist 15 Right Hand 65.6 69.6 8.2 Tube Feeding 400 350 200 Output: Urine 335 445 250 Urethral (Devlin) 335 445 250 Other: # Bowel Movements 0 - Medications Active Medications: Active Medications Generic Name Dose Route Start Last Admin Trade Name Freq PRN Reason Stop Dose Admin Acetaminophen/Butalbital/Caffeine 1 tab 08/07/16 10:11 08/08/16 10:50 Fioricet PO 1 tab Q4 PRN Administration Headache Diphenhydramine HCl 50 mg 08/08/16 18:00 08/09/16 09:58 Benadryl IVP 50 mg BID GORDO Administration Famotidine 20 mg 08/05/16 10:00 08/09/16 09:51 Pepcid IVP 20 mg DAILY GORDO Administration Furosemide 40 mg 08/09/16 13:45 08/09/16 13:38 Lasix IVP 40 mg Q12 GORDO Administration Home Med 1 drop 08/07/16 18:00 08/09/16 10:04 Patient's Own Drops OS 1 drop BID GORDO Administration Levetiracetam 500 mg/ Sodium 105 mls @ 420 mls/hr 08/04/16 18:00 08/09/16 05: 49 Chloride IVPB 420 mls/hr Q12H GORDO Administration Sodium Chloride 1,000 mls @ 75 mls/hr 08/07/16 07:00 08/09/16 01:18 Sodium Chloride 0.9% IV 75 mls/hr .[id number] GORDO Administration Propofol 1,000 mg in 100 mls @ 2.041 mls/hr 08/07/16 10:09 08/09/16 01:34 Diprivan IV 20 mcg/kg/min .Q24H PRN 8.165 mls/hr TITRATE PER MD ORDER Administration Protocol 5 MCG/KG/MIN Diltiazem HCl 125 mg/ Dextrose 125 mls @ 5 mls/hr 08/09/16 07:00 08/09/16 08: 05 IV 5 mg/hr .Q24H GORDO 5 mls/hr Protocol Administration 5 MG/HR Insulin Human Regular 0 unit 07/31/16 12:00 08/09/16 12:00 Novolin R SC 2 unit Q6H GORDO Administration Protocol Labetalol HCl 10 mg 08/05/16 14:59 08/07/16 01:14 Trandate IVP 10 mg Q1 PRN Administration SBP> 160 mm Hg Latanoprost 0 ml 07/31/16 22:00 08/08/16 21:24 Xalatan Opht OD 0.1 ml HS GORDO Administration Lisinopril 20 mg 08/04/16 18:32 08/09/16 10:06 Zestril PO Not Given DAILY GORDO Metoprolol Tartrate 50 mg 08/09/16 07:30 08/09/16 10:06 Lopressor PO Not Given BIDBS GORDO Sennosides 8.6 mg 08/08/16 00:43 08/09/16 10:17 Senokot Tab NG 8.6 mg BID GORDO Administration Timolol Maleate 0 drop 07/31/16 11:15 08/09/16 10:04 Timoptic 0.5% Ophth Soln OD 1 drop DAILY GORDO Administration - Patient Studies Lab Studies: Microbiology Studies 08/07/16 10:22 Gram Stain - Final Trachasp Sputum Culture - Final NORMAL ORAL EMERY 08/04/16 18:00 Blood Culture - Preliminary Blood NO GROWTH AFTER 4 DAYS 08/04/16 17:45 Blood Culture - Preliminary Blood NO GROWTH AFTER 4 DAYS Lab Studies 08/09/16 08/09/16 08/09/16 Range/Units 11:32 06:20 06:20 WBC 9.6 (4.8-10.8) K/uL RBC 3.17 L (4.40-5.90) Mil/uL Hgb 8.6 L (12.0-18.0) g/dL Hct 25.7 L (35.0-51.0) % MCV 81.2 (80.0-94.0) fL MCH 27.2 (27.0-31.0) pg MCHC 33.5 (33.0-37.0) g/dL RDW 14.1 (11.5-14.5) % Plt Count 260 (130-400) K/uL MPV 8.9 (7.2-11.7) fL Neut % (Auto) 64.5 (50.0-75.0) % Lymph % (Auto) 17.3 L (20.0-40.0) % Young % (Auto) 10.2 H (0.0-10.0) % Eos % (Auto) 7.6 H (0.0-4.0) % Baso % (Auto) 0.4 (0.0-2.0) % Neut # 6.2 (1.8-7.0) K/uL Lymph # 1.7 (1.0-4.3) K/uL Young # 1.0 H (0.0-0.8) K/uL Eos # 0.7 (0.0-0.7) K/uL Baso # 0.0 (0.0-0.2) K/uL Puncture Site pCO2 (35-45) mm/Hg pO2 (80-100) mm/Hg HCO3 (21-28) mmol/L ABG pH (7.35-7.45) ABG Total CO2 (22-28) mmol/L ABG O2 Saturation (95-98) % ABG Base Excess (-2.0-3.0) mmol/L ABG Hemoglobin (11.7-17.4) g/dL ABG Carboxyhemoglobin (0.5-1.5) % POC ABG HHb (Measured) (0.0-5.0) % ABG Methemoglobin (0.0-3.0) % David Test A-a O2 Difference mm/Hg Respiratory Index Hgb O2 Saturation (95.0-98.0) % Mechanical Rate FiO2 % Tidal Volume PEEP Sodium 137 (132-148) mmol/L Potassium 3.1 L (3.6-5.2) mmol/L Chloride 103 (98-107) mmol/L Carbon Dioxide 26 (22-30) mmol/L Anion Gap 11 (10-20) BUN 9 (9-20) mg/dL Creatinine 0.6 L (0.8-1.5) MG/DL Est GFR ( Amer) > 60 Est GFR (Non-Af Amer) > 60 POC Glucose (mg/dL) 179 H (65-110) mg/dL Random Glucose 163 H (75-110) mg/dL Calcium 7.4 L (8.6-10.4) mg/dl Phosphorus 3.3 (2.5-4.5) mg/dL Magnesium 1.8 (1.6-2.3) mg/dL Total Bilirubin 0.6 (0.2-1.3) mg/dL AST 64 H D (17-59) U/L ALT 100 H (21-72) U/L Alkaline Phosphatase 131 H (38-126) U/L Total Protein 5.0 L (6.3-8.3) g/dL Albumin 2.4 L (3.5-5.0) g/dL Globulin 2.6 (2.2-3.9) gm/dL Albumin/Globulin Ratio 0.9 L (1.0-2.1) 08/09/16 08/09/16 08/09/16 Range/Units 05:48 04:25 00:23 WBC (4.8-10.8) K/uL RBC (4.40-5.90) Mil/uL Hgb (12.0-18.0) g/dL Hct (35.0-51.0) % MCV (80.0-94.0) fL MCH (27.0-31.0) pg MCHC (33.0-37.0) g/dL RDW (11.5-14.5) % Plt Count (130-400) K/uL MPV (7.2-11.7) fL Neut % (Auto) (50.0-75.0) % Lymph % (Auto) (20.0-40.0) % Young % (Auto) (0.0-10.0) % Eos % (Auto) (0.0-4.0) % Baso % (Auto) (0.0-2.0) % Neut # (1.8-7.0) K/uL Lymph # (1.0-4.3) K/uL Young # (0.0-0.8) K/uL Eos # (0.0-0.7) K/uL Baso # (0.0-0.2) K/uL Puncture Site Rr pCO2 29 L (35-45) mm/Hg pO2 203 H (80-100) mm/Hg HCO3 25.3 (21-28) mmol/L ABG pH 7.51 H (7.35-7.45) ABG Total CO2 24.0 (22-28) mmol/L ABG O2 Saturation 99.7 H (95-98) % ABG Base Excess 0.4 (-2.0-3.0) mmol/L ABG Hemoglobin 8.1 L (11.7-17.4) g/dL ABG Carboxyhemoglobin 1.3 (0.5-1.5) % POC ABG HHb (Measured) 0.3 (0.0-5.0) % ABG Methemoglobin 1.4 (0.0-3.0) % David Test Pos A-a O2 Difference 117.0 mm/Hg Respiratory Index 0.6 Hgb O2 Saturation 97.0 (95.0-98.0) % Mechanical Rate 14 FiO2 50.0 % Tidal Volume 500 PEEP 5 Sodium (132-148) mmol/L Potassium (3.6-5.2) mmol/L Chloride (98-107) mmol/L Carbon Dioxide (22-30) mmol/L Anion Gap (10-20) BUN (9-20) mg/dL Creatinine (0.8-1.5) MG/DL Est GFR ( Amer) Est GFR (Non-Af Amer) POC Glucose (mg/dL) 193 H 133 H (65-110) mg/dL Random Glucose (75-110) mg/dL Calcium (8.6-10.4) mg/dl Phosphorus (2.5-4.5) mg/dL Magnesium (1.6-2.3) mg/dL Total Bilirubin (0.2-1.3) mg/dL AST (17-59) U/L ALT (21-72) U/L Alkaline Phosphatase (38-126) U/L Total Protein (6.3-8.3) g/dL Albumin (3.5-5.0) g/dL Globulin (2.2-3.9) gm/dL Albumin/Globulin Ratio (1.0-2.1) / Range/Units 18:17 WBC (4.8-10.8) K/uL RBC (4.40-5.90) Mil/uL Hgb (12.0-18.0) g/dL Hct (35.0-51.0) % MCV (80.0-94.0) fL MCH (27.0-31.0) pg MCHC (33.0-37.0) g/dL RDW (11.5-14.5) % Plt Count (130-400) K/uL MPV (7.2-11.7) fL Neut % (Auto) (50.0-75.0) % Lymph % (Auto) (20.0-40.0) % Young % (Auto) (0.0-10.0) % Eos % (Auto) (0.0-4.0) % Baso % (Auto) (0.0-2.0) % Neut # (1.8-7.0) K/uL Lymph # (1.0-4.3) K/uL Young # (0.0-0.8) K/uL Eos # (0.0-0.7) K/uL Baso # (0.0-0.2) K/uL Puncture Site pCO2 (35-45) mm/Hg pO2 (80-100) mm/Hg HCO3 (21-28) mmol/L ABG pH (7.35-7.45) ABG Total CO2 (22-28) mmol/L ABG O2 Saturation (95-98) % ABG Base Excess (-2.0-3.0) mmol/L ABG Hemoglobin (11.7-17.4) g/dL ABG Carboxyhemoglobin (0.5-1.5) % POC ABG HHb (Measured) (0.0-5.0) % ABG Methemoglobin (0.0-3.0) % David Test A-a O2 Difference mm/Hg Respiratory Index Hgb O2 Saturation (95.0-98.0) % Mechanical Rate FiO2 % Tidal Volume PEEP Sodium (132-148) mmol/L Potassium (3.6-5.2) mmol/L Chloride (98-107) mmol/L Carbon Dioxide (22-30) mmol/L Anion Gap (10-20) BUN (9-20) mg/dL Creatinine (0.8-1.5) MG/DL Est GFR ( Amer) Est GFR (Non-Af Amer) POC Glucose (mg/dL) 219 H (65-110) mg/dL Random Glucose (75-110) mg/dL Calcium (8.6-10.4) mg/dl Phosphorus (2.5-4.5) mg/dL Magnesium (1.6-2.3) mg/dL Total Bilirubin (0.2-1.3) mg/dL AST (17-59) U/L ALT (21-72) U/L Alkaline Phosphatase (38-126) U/L Total Protein (6.3-8.3) g/dL Albumin (3.5-5.0) g/dL Globulin (2.2-3.9) gm/dL Albumin/Globulin Ratio (1.0-2.1) Laboratory Results - last 24 hr 08/08/16 08/09/16 08/09/16 18:17 00:23 04:25 WBC RBC Hgb Hct MCV MCH MCHC RDW Plt Count MPV Neut % (Auto) Lymph % (Auto) Young % (Auto) Eos % (Auto) Baso % (Auto) Neut # Lymph # Young # Eos # Baso # Puncture Site Rr pCO2 29 L pO2 203 H HCO3 25.3 ABG pH 7.51 H ABG Total CO2 24.0 ABG O2 Saturation 99.7 H ABG Base Excess 0.4 ABG Hemoglobin 8.1 L ABG Carboxyhemoglobin 1.3 POC ABG HHb (Measured) 0.3 ABG Methemoglobin 1.4 David Test Pos A-a O2 Difference 117.0 Respiratory Index 0.6 Hgb O2 Saturation 97.0 Mechanical Rate 14 FiO2 50.0 Tidal Volume 500 PEEP 5 Sodium Potassium Chloride Carbon Dioxide Anion Gap BUN Creatinine Est GFR ( Amer) Est GFR (Non-Af Amer) POC Glucose (mg/dL) 219 H 133 H Random Glucose Calcium Phosphorus Magnesium Total Bilirubin AST ALT Alkaline Phosphatase Total Protein Albumin Globulin Albumin/Globulin Ratio 08/09/16 08/09/16 08/09/16 05:48 06:20 06:20 WBC 9.6 RBC 3.17 L Hgb 8.6 L Hct 25.7 L MCV 81.2 MCH 27.2 MCHC 33.5 RDW 14.1 Plt Count 260 MPV 8.9 Neut % (Auto) 64.5 Lymph % (Auto) 17.3 L Young % (Auto) 10.2 H Eos % (Auto) 7.6 H Baso % (Auto) 0.4 Neut # 6.2 Lymph # 1.7 Young # 1.0 H Eos # 0.7 Baso # 0.0 Puncture Site pCO2 pO2 HCO3 ABG pH ABG Total CO2 ABG O2 Saturation ABG Base Excess ABG Hemoglobin ABG Carboxyhemoglobin POC ABG HHb (Measured) ABG Methemoglobin David Test A-a O2 Difference Respiratory Index Hgb O2 Saturation Mechanical Rate FiO2 Tidal Volume PEEP Sodium 137 Potassium 3.1 L Chloride 103 Carbon Dioxide 26 Anion Gap 11 BUN 9 Creatinine 0.6 L Est GFR ( Amer) > 60 Est GFR (Non-Af Amer) > 60 POC Glucose (mg/dL) 193 H Random Glucose 163 H Calcium 7.4 L Phosphorus 3.3 Magnesium 1.8 Total Bilirubin 0.6 AST 64 H D ALT 100 H Alkaline Phosphatase 131 H Total Protein 5.0 L Albumin 2.4 L Globulin 2.6 Albumin/Globulin Ratio 0.9 L 08/09/16 11:32 WBC RBC Hgb Hct MCV MCH MCHC RDW Plt Count MPV Neut % (Auto) Lymph % (Auto) Young % (Auto) Eos % (Auto) Baso % (Auto) Neut # Lymph # Young # Eos # Baso # Puncture Site pCO2 pO2 HCO3 ABG pH ABG Total CO2 ABG O2 Saturation ABG Base Excess ABG Hemoglobin ABG Carboxyhemoglobin POC ABG HHb (Measured) ABG Methemoglobin David Test A-a O2 Difference Respiratory Index Hgb O2 Saturation Mechanical Rate FiO2 Tidal Volume PEEP Sodium Potassium Chloride Carbon Dioxide Anion Gap BUN Creatinine Est GFR ( Amer) Est GFR (Non-Af Amer) POC Glucose (mg/dL) 179 H Random Glucose Calcium Phosphorus Magnesium Total Bilirubin AST ALT Alkaline Phosphatase Total Protein Albumin Globulin Albumin/Globulin Ratio Critical Care Progress Note - Nutrition Nutrition: Nutrition Category Date Time Status NPO Diet [DIET] Diets 08/04/16 Breakfast Active Attending/Attestation - Attestation I have personally seen and examined this patient.: Yes I have fully participated in the care of the patient.: Yes I have reviewed all pertinent clinical information: Yes Notes (Text): 08/09/16 14:23 I have seen and examined the patient. Medical records, lab studies, and imaging were reviewed by me and a management plan was formulated on multidisciplinary rounds with resident Dr. Aponte. I agree with their above documented assessment and plan. Patient is waking up and following commands off of sedation, will diurese, start PS trials and hopefully move toward extubation. Used corporate travel coordinator to communicate with patient and he nodded yes appropriately. Critical Care Time 50 minutes. Multi-disciplinary rounds were performed with house staff, nursing, speech therapy, respiratory therapy, pharmacy and nutrition with integrated input from the primary team/attending and other consulting services. The documented time is cumulative and includes review of patient data/exams/labs/chart review and examination of the patient on rounds and throughout the day; time is exclusive of any procedures or teaching time.
[2016-08-09] MEDS: Latanoprost 2.5 ml Opht Soln OD SCH (21:52)
[2016-08-10] MEDS: (Novolin R) Insulin Human Regular 100 units/ml vial SC SCH ×4 (00:34→18:53)
[2016-08-10] MEDS: Sodium Chloride 0.9% 1,000 ML IV SCH ×4 (01:19→22:00)
[2016-08-10] MEDS: levETIRAcetam 500 MG in Sodium Chloride 0.9% 100 ML IVPB SCH ×2 (06:01→17:51)
[2016-08-10 06:32] LABS: BASO # 0.1 K/uL (0.0-0.2); BASO % 0.8 % (0.0-2.0); EOS # 0.6 K/uL (0.0-0.7); EOS % 5.1 % (0.0-4.0); HEMATOCRIT 31.2 % (35.0-51.0); LYMPH # 2.5 K/uL (1.0-4.3); LYMPH % 22.3 % (20.0-40.0); MEAN CELL VOLUME 80.8 fL (80.0-94.0); MEAN CORPUSCULAR HEMOGLOBIN 26.3 pg (27.0-31.0); MEAN CORPUSCULAR HGB CONC 32.6 g/dL (33.0-37.0); MEAN PLATELET VOLUME 9.1 fL (7.2-11.7); MONO # 1.3 K/uL (0.0-0.8); MONO % 11.5 % (0.0-10.0); WHITE BLOOD COUNT 11.2 K/uL (4.8-10.8)
[2016-08-10 06:48] LABS: CHLORIDE 95 mmol/L (98-107); POTASSIUM 3.7 mmol/L (3.6-5.2); SODIUM 137 mmol/L (132-148)
[2016-08-10 06:50] LABS: BILIRUBIN,TOTAL 0.7 mg/dL (0.2-1.3); GFR AFRICAN-AMERICAN > 60
[2016-08-10 06:51] LABS: ALB/GLOB RATIO 1.1 (1.0-2.1); ALKALINE PHOSPHATASE 178 U/L (38-126); ALT/SGPT 111 U/L (21-72); AST/SGOT 70 U/L (17-59); BLOOD UREA NITROGEN 9 mg/dL (9-20); CALCIUM 8.5 mg/dl (8.6-10.4); CARBON DIOXIDE 31 mmol/L (22-30); GLUCOSE,RANDOM 148 mg/dL (75-110); PHOSPHOROUS 3.4 mg/dL (2.5-4.5); TOTAL PROTEIN 6.8 g/dL (6.3-8.3)
[2016-08-10 06:52] LABS: MAGNESIUM 1.9 mg/dL (1.6-2.3)
[2016-08-10] MEDS: DiphenhydrAMINE 50 mg/ml Inj IVP SCH ×2 (09:30→17:40)
--- NOTE | 2016-08-10 09:52 | CP.PCM.PN ---
Subjective - Date & Time of Evaluation Date of Evaluation: 08/07/16 Time of Evaluation: 11:39 - Subjective Subjective: sedated non verbal on vent family at bedside Objective - Vital Signs/Intake and Output Vital Signs (last 24 hours): Temp Pulse Resp BP Pulse Ox 99 F 71 13 133/68 100 08/10/16 04:00 08/10/16 09:00 08/10/16 09:00 08/10/16 08:53 08/10/16 09:00 Intake and Output: 08/10/16 08/10/16 06:59 18:59 Intake Total 1500 275 Output Total 3295 255 Balance -1795 20 - Medications Medications: Current Medications Acetaminophen/Butalbital/Caffeine (Fioricet) 1 tab PO Q4 PRN PRN Reason: Headache Last Admin: 08/08/16 10:50 Dose: 1 tab Diphenhydramine HCl (Benadryl) 50 mg IVP BID [facility] Last Admin: 08/10/16 09:30 Dose: 50 mg Famotidine (Pepcid) 20 mg IVP DAILY [facility] Last Admin: 08/10/16 09:39 Dose: 20 mg Furosemide (Lasix) 40 mg IVP Q12 [facility] Last Admin: 08/09/16 21:52 Dose: 40 mg Home Med (Patient's Own Drops) 1 drop OS BID [facility] Last Admin: 08/09/16 17:16 Dose: 1 drop Levetiracetam 500 mg/ Sodium (Chloride) 105 mls @ 420 mls/hr IVPB Q12H [facility] Last Admin: 08/10/16 06:01 Dose: 420 mls/hr Sodium Chloride (Sodium Chloride 0.9%) 1,000 mls @ 75 mls/hr IV .[id number] [facility] Last Admin: 08/10/16 04:57 Dose: 75 mls/hr Propofol (Diprivan) 1,000 mg in 100 mls @ 2.041 mls/hr IV .Q24H PRN; Protocol; 5 MCG/KG/MIN PRN Reason: TITRATE PER MD ORDER Last Titration: 08/09/16 10:35 Dose: 0 mcg/kg/min, 0 mls/hr Diltiazem HCl 125 mg/ Dextrose 125 mls @ 5 mls/hr IV .Q24H [facility]; 5 MG/HR PRN Reason: Protocol Last Admin: 08/10/16 07:41 Dose: Not Given Insulin Human Regular (Novolin R) 0 unit SC Q6H [facility] PRN Reason: Protocol Last Admin: 08/10/16 06:06 Dose: 2 unit Labetalol HCl (Trandate) 10 mg IVP Q1 PRN PRN Reason: SBP> 160 mm Hg Last Admin: 08/07/16 01:14 Dose: 10 mg Latanoprost (Xalatan Opht) 0 ml OD HS [facility] Last Admin: 08/09/16 21:52 Dose: 2.5 ml Lisinopril (Zestril) 20 mg PO DAILY [facility] Last Admin: 08/09/16 10:06 Dose: Not Given Metoprolol Tartrate (Lopressor) 50 mg PO BIDBS [facility] Last Admin: 08/10/16 08:05 Dose: 50 mg Sennosides (Senokot Tab) 8.6 mg NG BID [facility] Last Admin: 08/09/16 17:16 Dose: 8.6 mg Timolol Maleate (Timoptic 0.5% Ophth Soln) 0 drop OD DAILY [facility] Last Admin: 08/09/16 10:04 Dose: 1 drop - Labs Labs: 08/10/16 06:28 08/10/16 06:28 PT 11.2 SECONDS (9.7-12.2) 07/30/16 23:18 INR 1.0 07/30/16 23:18 APTT 29 SECONDS (21-34) 07/30/16 23:18 - Constitutional Appears: Well, No Acute Distress - Head Exam Additional comments: post op dressing - ENT Exam Additional comments: et tube - Respiratory Exam Respiratory Exam: Clear to Ausculation Bilateral - Cardiovascular Exam Cardiovascular Exam: REGULAR RHYTHM, +S1, +S2. absent: Murmur - GI/Abdominal Exam GI & Abdominal Exam: Soft, Normal Bowel Sounds. absent: Tenderness, Organomegaly - Neurological Exam Neurological Exam: absent: Alert, Awake, Oriented x3 - Psychiatric Exam Psychiatric exam: absent: Normal Affect, Normal Mood - Skin Skin Exam: Normal Color Assessment and Plan - Assessment and Plan (Free Text) Assessment: (1) Cerebral hemorrhage Assessment & Plan: * Critical care: help appreciated * Neurosurgery: Dr. Bolden on board-->help appreciated * Neurology: Dr Bonner on board-->help appreciated * Head CT (07/30/16): CT Head without contrast: 1. The left orbit appears to be rotated 90 degrees to the right while the right orbit appears to be oriented normally. 2. 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 This results in severe mass effect on the underlying brain, including 1.4 cm of leftward midline shift and compression of the right lateral ventricle. Asymmetric enlargement of the right temporal horn suggestive of early entrapment. * Head CT (08/02/16): satisfactory postoperative status following craniotomy, evacuation of large extra-axial fluid collection on the right. No new intra- axial abnormalities. Improved edema, mass effect. No evidence of acute infarction. * Head CT (08/04/16) showed acute extra-axial hemorrhage with blood layering in the extra-axial space. Increase in sulcal effacement, mass effect and midline shift. There is no evidence of herniation. This follows removal of the surgical drain identified previously. * Head CT (08/06/16): status post surgical intervention, placement of drainage catheter into the extra-axial space at the site prior subdural hematoma edema, mass effect and midline shift have improved considerably. No new or significant findings identified. * POD 5: s/p [place]yler hole and evacuation of subdural hemorrhage with [place] and David drain * POD 3 s/p right frontotemporal craniotomy; evacuation of acute subdural drain present * Removal of drain on 08/03/16 * Keppra 500mg IVPB Q 12hours for seizure prophylaxis * Sodium 2tabs PO Q 8 hours started--> monitor sodium * NS 125cc/hr; Sodium tablets * Per neurosurgery, prefers patient off anticoagulation * continue Neurochecks * No pain/no sedatives Status: Acute (2) Hypertension Assessment & Plan: Lisinopril 20mg PO daily * NS 1S 125cc/hr * Monitor vitals signs Status: Chronic (3) Diabetes Assessment & Plan: * [id number]: 5.9 * Controlled * Accuchecks Q6 hours * Regular insulin sliding scale subq Q 6hours * on feedings Status: Chronic (4) Prophylactic measure Assessment & Plan: Neurosurgery prefers patient off anticoagulation per prior discussion with ICU NGT tube Pepcid 20mg PO daily No benzos Seizure prophylaxis Blood cultures negative X 24 hours Status: Acute
[2016-08-10] MEDS: [UNRECOGNIZED DRUG - OTHER] OS SCH ×2 (10:24→18:58)
[2016-08-10 11:46] LABS: ARTERIAL BLOOD HGB O2 SAT 96.5 % (95.0-98.0); CARBOXYHEMOGLOBIN 1.5 % (0.5-1.5); DRAW SITE RB
--- NOTE | 2016-08-10 12:01 | CP.CCUPN ---
<Keegan Aponte - Last Filed: 08/10/16 11:57> CCU Subjective - Physician Review Subjective (Free Text): 08/10/16 11:57 PGY-1 ICU progress note Pt seen and examined at bedside. Pt intubated, but no sedation. No acute overnight events. Given one dose of Ativan for agitation. Pt alert and will answer by nodding but still does not open his eyes on his own. Critical Care Time Spent (in minutes): 35 CCU Objective - Vital Signs / Intake & Output Vital Signs (Last 4 hours): Vital Signs Temp Pulse Resp BP Pulse Ox 08/10/16 11:00 74 13 100 08/10/16 10:53 75 15 122/62 100 08/10/16 10:00 98.0 F 71 11 L 122/62 99 08/10/16 09:53 70 14 135/69 100 08/10/16 09:49 133/68 08/10/16 09:00 71 13 100 08/10/16 08:53 69 20 133/68 100 08/10/16 08:00 90 18 100 Intake and Output (Last 8hrs): Intake & Output 08/09/16 08/10/16 08/10/16 22:59 06:59 14:59 Intake Total 975 1000 425 Output Total 1625 3070 955 Balance -650 -2070 -530 Weight 185 lb 3.013 oz Intake: Intake, IV Amount 625 600 375 Left Hand 625 600 375 Tube Feeding 350 400 50 Output: Urine 1625 3070 955 Urethral (Devlin) 1625 3070 955 Other: # Bowel Movements 0 0 0 - Physical Exam Head: Positive for: Other (bandages in place and C/D/I) Pupils: Positive for: PERRL, Other (left eye medial deviation - chronic/right eye medial deviation - new onset) Extroacular Muscles: Positive for: EOMI Respiratory/Chest: Positive for: Clear to Auscultation, Good Air Exchange Cardiovascular: Positive for: Regular Rate and Rhythm, Normal S1, S2 Abdomen: Positive for: Normal Bowel Sounds. Negative for: Tenderness, Distention Upper Extremity: Positive for: NORMAL PULSES, Neurovascularly Intact Lower Extremity: Positive for: NORMAL PULSES, Neurovascularly Intact Neurological: Positive for: Motor Func Grossly Intact Skin: Positive for: Warm, Dry Psychiatric: Positive for: Alert, Agitated - Medications Active Medications: Active Medications Generic Name Dose Route Start Last Admin Trade Name Freq PRN Reason Stop Dose Admin Acetaminophen/Butalbital/Caffeine 1 tab 08/07/16 10:11 08/08/16 10:50 Fioricet PO 1 tab Q4 PRN Administration Headache Diphenhydramine HCl 50 mg 08/08/16 18:00 08/10/16 09:30 Benadryl IVP 50 mg BID GORDO Administration Famotidine 20 mg 08/05/16 10:00 08/10/16 09:39 Pepcid IVP 20 mg DAILY GORDO Administration Home Med 1 drop 08/07/16 18:00 08/10/16 10:24 Patient's Own Drops OS 1 drop BID GORDO Administration Levetiracetam 500 mg/ Sodium 105 mls @ 420 mls/hr 08/04/16 18:00 08/10/16 06: 01 Chloride IVPB 420 mls/hr Q12H GORDO Administration Sodium Chloride 1,000 mls @ 75 mls/hr 08/07/16 07:00 08/10/16 04:57 Sodium Chloride 0.9% IV 75 mls/hr .[id number] GORDO Administration Propofol 1,000 mg in 100 mls @ 2.041 mls/hr 08/07/16 10:09 08/09/16 10:35 Diprivan IV 0 mcg/kg/min .Q24H PRN 0 mls/hr TITRATE PER MD ORDER Titration Protocol 5 MCG/KG/MIN Diltiazem HCl 125 mg/ Dextrose 125 mls @ 5 mls/hr 08/09/16 07:00 08/10/16 07: 41 IV Not Given .Q24H GORDO Protocol 5 MG/HR Insulin Human Regular 0 unit 07/31/16 12:00 08/10/16 06:06 Novolin R SC 2 unit Q6H GORDO Administration Protocol Labetalol HCl 10 mg 08/05/16 14:59 08/07/16 01:14 Trandate IVP 10 mg Q1 PRN Administration SBP> 160 mm Hg Latanoprost 0 ml 07/31/16 22:00 08/09/16 21:52 Xalatan Opht OD 2.5 ml HS GORDO Administration Lisinopril 20 mg 08/04/16 18:32 08/10/16 10:39 Zestril PO Not Given DAILY [facility] Metoprolol Tartrate 50 mg 08/09/16 07:30 08/10/16 08:05 Lopressor PO 50 mg BIDBS GORDO Administration Sennosides 8.6 mg 08/08/16 00:43 08/10/16 10:00 Senokot Tab NG 8.6 mg BID GORDO Administration Timolol Maleate 0 drop 07/31/16 11:15 08/10/16 10:23 Timoptic 0.5% Ophth Soln OD 1 drop DAILY GORDO Administration - Patient Studies Lab Studies: Microbiology Studies 08/04/16 18:00 Blood Culture - Final Blood NO GROWTH AFTER 5 DAYS Gram Stain - Final TEST NOT PERFORMED 08/04/16 17:45 Blood Culture - Final Blood NO GROWTH AFTER 5 DAYS Gram Stain - Final TEST NOT PERFORMED 08/07/16 10:22 Gram Stain - Final Trachasp Sputum Culture - Final NORMAL ORAL EMERY Lab Studies 08/10/16 08/10/16 08/10/16 Range/Units 11:40 06:28 06:28 WBC 11.2 H (4.8-10.8) K/uL RBC 3.86 L (4.40-5.90) Mil/uL Hgb 10.2 L (12.0-18.0) g/dL Hct 31.2 L (35.0-51.0) % MCV 80.8 (80.0-94.0) fL MCH 26.3 L (27.0-31.0) pg MCHC 32.6 L (33.0-37.0) g/dL RDW 14.0 (11.5-14.5) % Plt Count 330 (130-400) K/uL MPV 9.1 (7.2-11.7) fL Neut % (Auto) 60.3 (50.0-75.0) % Lymph % (Auto) 22.3 (20.0-40.0) % [place] % (Auto) 11.5 H (0.0-10.0) % Eos % (Auto) 5.1 H (0.0-4.0) % Baso % (Auto) 0.8 (0.0-2.0) % Neut # 6.8 (1.8-7.0) K/uL Lymph # 2.5 (1.0-4.3) K/uL [place] # 1.3 H (0.0-0.8) K/uL Eos # 0.6 (0.0-0.7) K/uL Baso # 0.1 (0.0-0.2) K/uL Puncture Site Rb pCO2 38 (35-45) mm/Hg pO2 94 (80-100) mm/Hg HCO3 34.1 H (21-28) mmol/L ABG pH 7.57 H (7.35-7.45) ABG Total CO2 36.0 H (22-28) mmol/L ABG O2 Saturation 99.0 H (95-98) % ABG Base Excess 11.8 H (-2.0-3.0) mmol/L ABG Hemoglobin 11.8 (11.7-17.4) g/dL ABG Carboxyhemoglobin 1.5 (0.5-1.5) % POC ABG HHb (Measured) 1.0 (0.0-5.0) % ABG Methemoglobin 1.0 (0.0-3.0) % David Test Na A-a O2 Difference 144.0 mm/Hg Respiratory Index 1.5 Hgb O2 Saturation 96.5 (95.0-98.0) % FiO2 40.0 % Pressure Support 10 CPAP 5 Sodium 137 (132-148) mmol/L Potassium 3.7 (3.6-5.2) mmol/L Chloride 95 L (98-107) mmol/L Carbon Dioxide 31 H (22-30) mmol/L Anion Gap 15 (10-20) BUN 9 (9-20) mg/dL Creatinine 0.6 L (0.8-1.5) MG/DL Est GFR ( Amer) > 60 Est GFR (Non-Af Amer) > 60 POC Glucose (mg/dL) (65-110) mg/dL Random Glucose 148 H (75-110) mg/dL Calcium 8.5 L (8.6-10.4) mg/dl Phosphorus 3.4 (2.5-4.5) mg/dL Magnesium 1.9 (1.6-2.3) mg/dL Total Bilirubin 0.7 (0.2-1.3) mg/dL AST 70 H (17-59) U/L ALT 111 H (21-72) U/L Alkaline Phosphatase 178 H D (38-126) U/L Total Protein 6.8 (6.3-8.3) g/dL Albumin 3.5 D (3.5-5.0) g/dL Globulin 3.2 (2.2-3.9) gm/dL Albumin/Globulin Ratio 1.1 (1.0-2.1) 08/10/16 08/09/16 08/09/16 Range/Units 05:53 23:54 17:51 WBC (4.8-10.8) K/uL RBC (4.40-5.90) Mil/uL Hgb (12.0-18.0) g/dL Hct (35.0-51.0) % MCV (80.0-94.0) fL MCH (27.0-31.0) pg MCHC (33.0-37.0) g/dL RDW (11.5-14.5) % Plt Count (130-400) K/uL MPV (7.2-11.7) fL Neut % (Auto) (50.0-75.0) % Lymph % (Auto) (20.0-40.0) % [place] % (Auto) (0.0-10.0) % Eos % (Auto) (0.0-4.0) % Baso % (Auto) (0.0-2.0) % Neut # (1.8-7.0) K/uL Lymph # (1.0-4.3) K/uL [place] # (0.0-0.8) K/uL Eos # (0.0-0.7) K/uL Baso # (0.0-0.2) K/uL Puncture Site pCO2 (35-45) mm/Hg pO2 (80-100) mm/Hg HCO3 (21-28) mmol/L ABG pH (7.35-7.45) ABG Total CO2 (22-28) mmol/L ABG O2 Saturation (95-98) % ABG Base Excess (-2.0-3.0) mmol/L ABG Hemoglobin (11.7-17.4) g/dL ABG Carboxyhemoglobin (0.5-1.5) % POC ABG HHb (Measured) (0.0-5.0) % ABG Methemoglobin (0.0-3.0) % David Test A-a O2 Difference mm/Hg Respiratory Index Hgb O2 Saturation (95.0-98.0) % FiO2 % Pressure Support CPAP Sodium (132-148) mmol/L Potassium (3.6-5.2) mmol/L Chloride (98-107) mmol/L Carbon Dioxide (22-30) mmol/L Anion Gap (10-20) BUN (9-20) mg/dL Creatinine (0.8-1.5) MG/DL Est GFR ( Amer) Est GFR (Non-Af Amer) POC Glucose (mg/dL) 175 H 157 H 157 H (65-110) mg/dL Random Glucose (75-110) mg/dL Calcium (8.6-10.4) mg/dl Phosphorus (2.5-4.5) mg/dL Magnesium (1.6-2.3) mg/dL Total Bilirubin (0.2-1.3) mg/dL AST (17-59) U/L ALT (21-72) U/L Alkaline Phosphatase (38-126) U/L Total Protein (6.3-8.3) g/dL Albumin (3.5-5.0) g/dL Globulin (2.2-3.9) gm/dL Albumin/Globulin Ratio (1.0-2.1) 08/09/16 Range/Units 11:32 WBC (4.8-10.8) K/uL RBC (4.40-5.90) Mil/uL Hgb (12.0-18.0) g/dL Hct (35.0-51.0) % MCV (80.0-94.0) fL MCH (27.0-31.0) pg MCHC (33.0-37.0) g/dL RDW (11.5-14.5) % Plt Count (130-400) K/uL MPV (7.2-11.7) fL Neut % (Auto) (50.0-75.0) % Lymph % (Auto) (20.0-40.0) % [place] % (Auto) (0.0-10.0) % Eos % (Auto) (0.0-4.0) % Baso % (Auto) (0.0-2.0) % Neut # (1.8-7.0) K/uL Lymph # (1.0-4.3) K/uL [place] # (0.0-0.8) K/uL Eos # (0.0-0.7) K/uL Baso # (0.0-0.2) K/uL Puncture Site pCO2 (35-45) mm/Hg pO2 (80-100) mm/Hg HCO3 (21-28) mmol/L ABG pH (7.35-7.45) ABG Total CO2 (22-28) mmol/L ABG O2 Saturation (95-98) % ABG Base Excess (-2.0-3.0) mmol/L ABG Hemoglobin (11.7-17.4) g/dL ABG Carboxyhemoglobin (0.5-1.5) % POC ABG HHb (Measured) (0.0-5.0) % ABG Methemoglobin (0.0-3.0) % David Test A-a O2 Difference mm/Hg Respiratory Index Hgb O2 Saturation (95.0-98.0) % FiO2 % Pressure Support CPAP Sodium (132-148) mmol/L Potassium (3.6-5.2) mmol/L Chloride (98-107) mmol/L Carbon Dioxide (22-30) mmol/L Anion Gap (10-20) BUN (9-20) mg/dL Creatinine (0.8-1.5) MG/DL Est GFR ( Amer) Est GFR (Non-Af Amer) POC Glucose (mg/dL) 179 H (65-110) mg/dL Random Glucose (75-110) mg/dL Calcium (8.6-10.4) mg/dl Phosphorus (2.5-4.5) mg/dL Magnesium (1.6-2.3) mg/dL Total Bilirubin (0.2-1.3) mg/dL AST (17-59) U/L ALT (21-72) U/L Alkaline Phosphatase (38-126) U/L Total Protein (6.3-8.3) g/dL Albumin (3.5-5.0) g/dL Globulin (2.2-3.9) gm/dL Albumin/Globulin Ratio (1.0-2.1) Laboratory Results - last 24 hr 08/09/16 08/09/16 08/09/16 11:32 17:51 23:54 WBC RBC Hgb Hct MCV MCH MCHC RDW Plt Count MPV Neut % (Auto) Lymph % (Auto) [place] % (Auto) Eos % (Auto) Baso % (Auto) Neut # Lymph # [place] # Eos # Baso # Puncture Site pCO2 pO2 HCO3 ABG pH ABG Total CO2 ABG O2 Saturation ABG Base Excess ABG Hemoglobin ABG Carboxyhemoglobin POC ABG HHb (Measured) ABG Methemoglobin David Test A-a O2 Difference Respiratory Index Hgb O2 Saturation FiO2 Pressure Support CPAP Sodium Potassium Chloride Carbon Dioxide Anion Gap BUN Creatinine Est GFR ( Amer) Est GFR (Non-Af Amer) POC Glucose (mg/dL) 179 H 157 H 157 H Random Glucose Calcium Phosphorus Magnesium Total Bilirubin AST ALT Alkaline Phosphatase Total Protein Albumin Globulin Albumin/Globulin Ratio 08/10/16 08/10/16 08/10/16 05:53 06:28 06:28 WBC 11.2 H RBC 3.86 L Hgb 10.2 L Hct 31.2 L MCV 80.8 MCH 26.3 L MCHC 32.6 L RDW 14.0 Plt Count 330 MPV 9.1 Neut % (Auto) 60.3 Lymph % (Auto) 22.3 [place] % (Auto) 11.5 H Eos % (Auto) 5.1 H Baso % (Auto) 0.8 Neut # 6.8 Lymph # 2.5 [place] # 1.3 H Eos # 0.6 Baso # 0.1 Puncture Site pCO2 pO2 HCO3 ABG pH ABG Total CO2 ABG O2 Saturation ABG Base Excess ABG Hemoglobin ABG Carboxyhemoglobin POC ABG HHb (Measured) ABG Methemoglobin David Test A-a O2 Difference Respiratory Index Hgb O2 Saturation FiO2 Pressure Support CPAP Sodium 137 Potassium 3.7 Chloride 95 L Carbon Dioxide 31 H Anion Gap 15 BUN 9 Creatinine 0.6 L Est GFR ( Amer) > 60 Est GFR (Non-Af Amer) > 60 POC Glucose (mg/dL) 175 H Random Glucose 148 H Calcium 8.5 L Phosphorus 3.4 Magnesium 1.9 Total Bilirubin 0.7 AST 70 H ALT 111 H Alkaline Phosphatase 178 H D Total Protein 6.8 Albumin 3.5 D Globulin 3.2 Albumin/Globulin Ratio 1.1 08/10/16 11:40 WBC RBC Hgb Hct MCV MCH MCHC RDW Plt Count MPV Neut % (Auto) Lymph % (Auto) [place] % (Auto) Eos % (Auto) Baso % (Auto) Neut # Lymph # [place] # Eos # Baso # Puncture Site Rb pCO2 38 pO2 94 HCO3 34.1 H ABG pH 7.57 H ABG Total CO2 36.0 H ABG O2 Saturation 99.0 H ABG Base Excess 11.8 H ABG Hemoglobin 11.8 ABG Carboxyhemoglobin 1.5 POC ABG HHb (Measured) 1.0 ABG Methemoglobin 1.0 David Test Na A-a O2 Difference 144.0 Respiratory Index 1.5 Hgb O2 Saturation 96.5 FiO2 40.0 Pressure Support 10 CPAP 5 Sodium Potassium Chloride Carbon Dioxide Anion Gap BUN Creatinine Est GFR ( Amer) Est GFR (Non-Af Amer) POC Glucose (mg/dL) Random Glucose Calcium Phosphorus Magnesium Total Bilirubin AST ALT Alkaline Phosphatase Total Protein Albumin Globulin Albumin/Globulin Ratio Fingerstick Blood Sugar Results: 175 Review of Systems - Review of Systems Systems not reviewed;Unavailable: Intubated Critical Care Progress Note - Nutrition Nutrition: Nutrition Category Date Time Status NPO Diet [DIET] Diets 08/04/16 Breakfast Active Assessment/Plan - Assessment and Plan (Free Text) Assessment: This is a 75 yo M with right subdural hematoma s/p naomy hole evacuation x 2, POD #9 and 5, now intubated for protection of airway secondary to severe agitation. Plan: Neuro: Intubated, stopped sedation. One episode of agitation overnight requiring one dose of Ativan Keppra for seizure ppx Pt unable to open eyes and right eye now deviated medially - will repeat CT head Continue to monitor mental status Cardiovascular: Hemodynamically stable Continue current med regimen Pulmonary: Intubated - CPAP today. Consider extubation today Follow ABGs/CXR Monitor O2 sats Gastrointestinal: Tube feeds No acute issues Hematology: No issues, monitor H/H Endocrine: No acute issues Renal: Cont IVF Monitor electrolytes and replete as needed Strict I/O Good urine output Pt alkalotic with Lasix. D/C lasix and will give one dose of diamox Infectious Disease: Afebrile, no leukocytosis GI Prophylaxis: Pepcid DVT Prophylaxis: Heparin <Chadd Garrett - Last Filed: 08/10/16 15:07> CCU Objective - Vital Signs / Intake & Output Vital Signs (Last 4 hours): Vital Signs Pulse Resp BP Pulse Ox 08/10/16 14:00 77 13 100 08/10/16 13:53 76 11 L 139/79 100 08/10/16 13:00 79 14 99 08/10/16 12:54 80 12 121/82 99 08/10/16 12:00 76 16 95 08/10/16 11:53 95 H 13 132/75 98 Intake and Output (Last 8hrs): Intake & Output 08/10/16 08/10/16 08/10/16 06:59 14:59 22:59 Intake Total 1000 700 Output Total 3070 1165 Balance -2069 -465 Weight 185 lb 3.013 oz Intake: Intake, IV Amount 600 600 Left Hand 600 600 Tube Feeding 400 100 Output: Urine 3070 1165 Urethral (Devlin) 3070 1165 Other: # Bowel Movements 0 1 - Medications Active Medications: Active Medications Generic Name Dose Route Start Last Admin Trade Name Freq PRN Reason Stop Dose Admin Acetaminophen/Butalbital/Caffeine 1 tab 08/07/16 10:11 08/08/16 10:50 Fioricet PO 1 tab Q4 PRN Administration Headache Diphenhydramine HCl 50 mg 08/08/16 18:00 08/10/16 09:30 Benadryl IVP 50 mg BID GORDO Administration Famotidine 20 mg 08/05/16 10:00 08/10/16 09:39 Pepcid IVP 20 mg DAILY GORDO Administration Home Med 1 drop 08/07/16 18:00 08/10/16 10:24 Patient's Own Drops OS 1 drop BID GORDO Administration Levetiracetam 500 mg/ Sodium 105 mls @ 420 mls/hr 08/04/16 18:00 08/10/16 06: 01 Chloride IVPB 420 mls/hr Q12H GORDO Administration Sodium Chloride 1,000 mls @ 75 mls/hr 08/07/16 07:00 08/10/16 04:57 Sodium Chloride 0.9% IV 75 mls/hr .[id number] GORDO Administration Propofol 1,000 mg in 100 mls @ 2.041 mls/hr 08/07/16 10:09 08/09/16 10:35 Diprivan IV 0 mcg/kg/min .Q24H PRN 0 mls/hr TITRATE PER MD ORDER Titration Protocol 5 MCG/KG/MIN Diltiazem HCl 125 mg/ Dextrose 125 mls @ 5 mls/hr 08/09/16 07:00 08/10/16 07: 41 IV Not Given .Q24H GORDO Protocol 5 MG/HR Insulin Human Regular 0 unit 07/31/16 12:00 08/10/16 12:25 Novolin R SC Not Given Q6H GORDO Protocol Labetalol HCl 10 mg 08/05/16 14:59 08/07/16 01:14 Trandate IVP 10 mg Q1 PRN Administration SBP> 160 mm Hg Latanoprost 0 ml 07/31/16 22:00 08/09/16 21:52 Xalatan Opht OD 2.5 ml HS GORDO Administration Lisinopril 20 mg 08/04/16 18:32 08/10/16 10:39 Zestril PO Not Given DAILY GORDO Metoprolol Tartrate 50 mg 08/09/16 07:30 08/10/16 08:05 Lopressor PO 50 mg BIDBS GORDO Administration Sennosides 8.6 mg 08/08/16 00:43 08/10/16 10:00 Senokot Tab NG 8.6 mg BID GORDO Administration Timolol Maleate 0 drop 07/31/16 11:15 08/10/16 10:23 Timoptic 0.5% Ophth Soln OD 1 drop DAILY GORDO Administration - Patient Studies Lab Studies: Microbiology Studies 08/04/16 18:00 Blood Culture - Final Blood NO GROWTH AFTER 5 DAYS Gram Stain - Final TEST NOT PERFORMED 08/04/16 17:45 Blood Culture - Final Blood NO GROWTH AFTER 5 DAYS Gram Stain - Final TEST NOT PERFORMED 08/07/16 10:22 Gram Stain - Final Trachasp Sputum Culture - Final NORMAL ORAL EMERY Lab Studies 08/10/16 08/10/16 08/10/16 Range/Units 12:22 11:40 06:28 WBC (4.8-10.8) K/uL RBC (4.40-5.90) Mil/uL Hgb (12.0-18.0) g/dL Hct (35.0-51.0) % MCV (80.0-94.0) fL MCH (27.0-31.0) pg MCHC (33.0-37.0) g/dL RDW (11.5-14.5) % Plt Count (130-400) K/uL MPV (7.2-11.7) fL Neut % (Auto) (50.0-75.0) % Lymph % (Auto) (20.0-40.0) % [place] % (Auto) (0.0-10.0) % Eos % (Auto) (0.0-4.0) % Baso % (Auto) (0.0-2.0) % Neut # (1.8-7.0) K/uL Lymph # (1.0-4.3) K/uL [place] # (0.0-0.8) K/uL Eos # (0.0-0.7) K/uL Baso # (0.0-0.2) K/uL Puncture Site Rb pCO2 38 (35-45) mm/Hg pO2 94 (80-100) mm/Hg HCO3 34.1 H (21-28) mmol/L ABG pH 7.57 H (7.35-7.45) ABG Total CO2 36.0 H (22-28) mmol/L ABG O2 Saturation 99.0 H (95-98) % ABG Base Excess 11.8 H (-2.0-3.0) mmol/L ABG Hemoglobin 11.8 (11.7-17.4) g/dL ABG Carboxyhemoglobin 1.5 (0.5-1.5) % POC ABG HHb (Measured) 1.0 (0.0-5.0) % ABG Methemoglobin 1.0 (0.0-3.0) % David Test Na A-a O2 Difference 144.0 mm/Hg Respiratory Index 1.5 Hgb O2 Saturation 96.5 (95.0-98.0) % FiO2 40.0 % Pressure Support 10 CPAP 5 Sodium 137 (132-148) mmol/L Potassium 3.7 (3.6-5.2) mmol/L Chloride 95 L (98-107) mmol/L Carbon Dioxide 31 H (22-30) mmol/L Anion Gap 15 (10-20) BUN 9 (9-20) mg/dL Creatinine 0.6 L (0.8-1.5) MG/DL Est GFR ( Amer) > 60 Est GFR (Non-Af Amer) > 60 POC Glucose (mg/dL) 119 H (65-110) mg/dL Random Glucose 148 H (75-110) mg/dL Calcium 8.5 L (8.6-10.4) mg/dl Phosphorus 3.4 (2.5-4.5) mg/dL Magnesium 1.9 (1.6-2.3) mg/dL Total Bilirubin 0.7 (0.2-1.3) mg/dL AST 70 H (17-59) U/L ALT 111 H (21-72) U/L Alkaline Phosphatase 178 H D (38-126) U/L Total Protein 6.8 (6.3-8.3) g/dL Albumin 3.5 D (3.5-5.0) g/dL Globulin 3.2 (2.2-3.9) gm/dL Albumin/Globulin Ratio 1.1 (1.0-2.1) 08/10/16 08/10/16 08/09/16 Range/Units 06:28 05:53 23:54 WBC 11.2 H (4.8-10.8) K/uL RBC 3.86 L (4.40-5.90) Mil/uL Hgb 10.2 L (12.0-18.0) g/dL Hct 31.2 L (35.0-51.0) % MCV 80.8 (80.0-94.0) fL MCH 26.3 L (27.0-31.0) pg MCHC 32.6 L (33.0-37.0) g/dL RDW 14.0 (11.5-14.5) % Plt Count 330 (130-400) K/uL MPV 9.1 (7.2-11.7) fL Neut % (Auto) 60.3 (50.0-75.0) % Lymph % (Auto) 22.3 (20.0-40.0) % [place] % (Auto) 11.5 H (0.0-10.0) % Eos % (Auto) 5.1 H (0.0-4.0) % Baso % (Auto) 0.8 (0.0-2.0) % Neut # 6.8 (1.8-7.0) K/uL Lymph # 2.5 (1.0-4.3) K/uL [place] # 1.3 H (0.0-0.8) K/uL Eos # 0.6 (0.0-0.7) K/uL Baso # 0.1 (0.0-0.2) K/uL Puncture Site pCO2 (35-45) mm/Hg pO2 (80-100) mm/Hg HCO3 (21-28) mmol/L ABG pH (7.35-7.45) ABG Total CO2 (22-28) mmol/L ABG O2 Saturation (95-98) % ABG Base Excess (-2.0-3.0) mmol/L ABG Hemoglobin (11.7-17.4) g/dL ABG Carboxyhemoglobin (0.5-1.5) % POC ABG HHb (Measured) (0.0-5.0) % ABG Methemoglobin (0.0-3.0) % David Test A-a O2 Difference mm/Hg Respiratory Index Hgb O2 Saturation (95.0-98.0) % FiO2 % Pressure Support CPAP Sodium (132-148) mmol/L Potassium (3.6-5.2) mmol/L Chloride (98-107) mmol/L Carbon Dioxide (22-30) mmol/L Anion Gap (10-20) BUN (9-20) mg/dL Creatinine (0.8-1.5) MG/DL Est GFR ( Amer) Est GFR (Non-Af Amer) POC Glucose (mg/dL) 175 H 157 H (65-110) mg/dL Random Glucose (75-110) mg/dL Calcium (8.6-10.4) mg/dl Phosphorus (2.5-4.5) mg/dL Magnesium (1.6-2.3) mg/dL Total Bilirubin (0.2-1.3) mg/dL AST (17-59) U/L ALT (21-72) U/L Alkaline Phosphatase (38-126) U/L Total Protein (6.3-8.3) g/dL Albumin (3.5-5.0) g/dL Globulin (2.2-3.9) gm/dL Albumin/Globulin Ratio (1.0-2.1) 08/09/16 Range/Units 17:51 WBC (4.8-10.8) K/uL RBC (4.40-5.90) Mil/uL Hgb (12.0-18.0) g/dL Hct (35.0-51.0) % MCV (80.0-94.0) fL MCH (27.0-31.0) pg MCHC (33.0-37.0) g/dL RDW (11.5-14.5) % Plt Count (130-400) K/uL MPV (7.2-11.7) fL Neut % (Auto) (50.0-75.0) % Lymph % (Auto) (20.0-40.0) % [place] % (Auto) (0.0-10.0) % Eos % (Auto) (0.0-4.0) % Baso % (Auto) (0.0-2.0) % Neut # (1.8-7.0) K/uL Lymph # (1.0-4.3) K/uL [place] # (0.0-0.8) K/uL Eos # (0.0-0.7) K/uL Baso # (0.0-0.2) K/uL Puncture Site pCO2 (35-45) mm/Hg pO2 (80-100) mm/Hg HCO3 (21-28) mmol/L ABG pH (7.35-7.45) ABG Total CO2 (22-28) mmol/L ABG O2 Saturation (95-98) % ABG Base Excess (-2.0-3.0) mmol/L ABG Hemoglobin (11.7-17.4) g/dL ABG Carboxyhemoglobin (0.5-1.5) % POC ABG HHb (Measured) (0.0-5.0) % ABG Methemoglobin (0.0-3.0) % David Test A-a O2 Difference mm/Hg Respiratory Index Hgb O2 Saturation (95.0-98.0) % FiO2 % Pressure Support CPAP Sodium (132-148) mmol/L Potassium (3.6-5.2) mmol/L Chloride (98-107) mmol/L Carbon Dioxide (22-30) mmol/L Anion Gap (10-20) BUN (9-20) mg/dL Creatinine (0.8-1.5) MG/DL Est GFR ( Amer) Est GFR (Non-Af Amer) POC Glucose (mg/dL) 157 H (65-110) mg/dL Random Glucose (75-110) mg/dL Calcium (8.6-10.4) mg/dl Phosphorus (2.5-4.5) mg/dL Magnesium (1.6-2.3) mg/dL Total Bilirubin (0.2-1.3) mg/dL AST (17-59) U/L ALT (21-72) U/L Alkaline Phosphatase (38-126) U/L Total Protein (6.3-8.3) g/dL Albumin (3.5-5.0) g/dL Globulin (2.2-3.9) gm/dL Albumin/Globulin Ratio (1.0-2.1) Laboratory Results - last 24 hr 08/09/16 08/09/16 08/10/16 17:51 23:54 05:53 WBC RBC Hgb Hct MCV MCH MCHC RDW Plt Count MPV Neut % (Auto) Lymph % (Auto) [place] % (Auto) Eos % (Auto) Baso % (Auto) Neut # Lymph # [place] # Eos # Baso # Puncture Site pCO2 pO2 HCO3 ABG pH ABG Total CO2 ABG O2 Saturation ABG Base Excess ABG Hemoglobin ABG Carboxyhemoglobin POC ABG HHb (Measured) ABG Methemoglobin David Test A-a O2 Difference Respiratory Index Hgb O2 Saturation FiO2 Pressure Support CPAP Sodium Potassium Chloride Carbon Dioxide Anion Gap BUN Creatinine Est GFR ( Amer) Est GFR (Non-Af Amer) POC Glucose (mg/dL) 157 H 157 H 175 H Random Glucose Calcium Phosphorus Magnesium Total Bilirubin AST ALT Alkaline Phosphatase Total Protein Albumin Globulin Albumin/Globulin Ratio 08/10/16 08/10/16 08/10/16 06:28 06:28 11:40 WBC 11.2 H RBC 3.86 L Hgb 10.2 L Hct 31.2 L MCV 80.8 MCH 26.3 L MCHC 32.6 L RDW 14.0 Plt Count 330 MPV 9.1 Neut % (Auto) 60.3 Lymph % (Auto) 22.3 [place] % (Auto) 11.5 H Eos % (Auto) 5.1 H Baso % (Auto) 0.8 Neut # 6.8 Lymph # 2.5 [place] # 1.3 H Eos # 0.6 Baso # 0.1 Puncture Site Rb pCO2 38 pO2 94 HCO3 34.1 H ABG pH 7.57 H ABG Total CO2 36.0 H ABG O2 Saturation 99.0 H ABG Base Excess 11.8 H ABG Hemoglobin 11.8 ABG Carboxyhemoglobin 1.5 POC ABG HHb (Measured) 1.0 ABG Methemoglobin 1.0 David Test Na A-a O2 Difference 144.0 Respiratory Index 1.5 Hgb O2 Saturation 96.5 FiO2 40.0 Pressure Support 10 CPAP 5 Sodium 137 Potassium 3.7 Chloride 95 L Carbon Dioxide 31 H Anion Gap 15 BUN 9 Creatinine 0.6 L Est GFR ( Amer) > 60 Est GFR (Non-Af Amer) > 60 POC Glucose (mg/dL) Random Glucose 148 H Calcium 8.5 L Phosphorus 3.4 Magnesium 1.9 Total Bilirubin 0.7 AST 70 H ALT 111 H Alkaline Phosphatase 178 H D Total Protein 6.8 Albumin 3.5 D Globulin 3.2 Albumin/Globulin Ratio 1.1 08/10/16 12:22 WBC RBC Hgb Hct MCV MCH MCHC RDW Plt Count MPV Neut % (Auto) Lymph % (Auto) [place] % (Auto) Eos % (Auto) Baso % (Auto) Neut # Lymph # [place] # Eos # Baso # Puncture Site pCO2 pO2 HCO3 ABG pH ABG Total CO2 ABG O2 Saturation ABG Base Excess ABG Hemoglobin ABG Carboxyhemoglobin POC ABG HHb (Measured) ABG Methemoglobin David Test A-a O2 Difference Respiratory Index Hgb O2 Saturation FiO2 Pressure Support CPAP Sodium Potassium Chloride Carbon Dioxide Anion Gap BUN Creatinine Est GFR ( Amer) Est GFR (Non-Af Amer) POC Glucose (mg/dL) 119 H Random Glucose Calcium Phosphorus Magnesium Total Bilirubin AST ALT Alkaline Phosphatase Total Protein Albumin Globulin Albumin/Globulin Ratio Critical Care Progress Note - Nutrition Nutrition: Nutrition Category Date Time Status NPO Diet [DIET] Diets 08/04/16 Breakfast Active Attending/Attestation - Attestation I have personally seen and examined this patient.: Yes I have fully participated in the care of the patient.: Yes I have reviewed all pertinent clinical information: Yes Notes (Text): 08/10/16 15:04 I have seen and examined the patient. Medical records, lab studies, and imaging were reviewed by me and a management plan was formulated on multidisciplinary rounds with resident Dr. Aponte. I agree with their above documented assessment and plan. Patient more alert following commands, obtaining head CT to determine if any progression in bleed. Patient should be extubatable, will make decision pending results of head CT. Critical Care Time 35 minutes. Multi-disciplinary rounds were performed with house staff, nursing, speech therapy, respiratory therapy, pharmacy and nutrition with integrated input from the primary team/attending and other consulting services. The documented time is cumulative and includes review of patient data/exams/labs/chart review and examination of the patient on rounds and throughout the day; time is exclusive of any procedures or teaching time.
--- NOTE | 2016-08-10 12:37 | CP.PCM.PN ---
Subjective - Date & Time of Evaluation Date of Evaluation: 08/10/16 Time of Evaluation: 12:35 - Subjective Subjective: intubated some command following/nodding to family per nsg staff moving L side vigorously awaiting another f/u CT shoul be extubatable excluding any untoward ct findings Objective - Vital Signs/Intake and Output Vital Signs (last 24 hours): Temp Pulse Resp BP Pulse Ox 98.0 F 76 16 132/75 95 08/10/16 10:00 08/10/16 12:00 08/10/16 12:00 08/10/16 11:53 08/10/16 12:00 Intake and Output: 08/10/16 08/10/16 06:59 18:59 Intake Total 1500 500 Output Total 3295 1165 Balance -1795 -665 - Medications Medications: Current Medications Acetaminophen/Butalbital/Caffeine (Fioricet) 1 tab PO Q4 PRN PRN Reason: Headache Last Admin: 08/08/16 10:50 Dose: 1 tab Diphenhydramine HCl (Benadryl) 50 mg IVP BID [facility] Last Admin: 08/10/16 09:30 Dose: 50 mg Famotidine (Pepcid) 20 mg IVP DAILY [facility] Last Admin: 08/10/16 09:39 Dose: 20 mg Home Med (Patient's Own Drops) 1 drop OS BID [facility] Last Admin: 08/10/16 10:24 Dose: 1 drop Levetiracetam 500 mg/ Sodium (Chloride) 105 mls @ 420 mls/hr IVPB Q12H [facility] Last Admin: 08/10/16 06:01 Dose: 420 mls/hr Sodium Chloride (Sodium Chloride 0.9%) 1,000 mls @ 75 mls/hr IV .[id number] [facility] Last Admin: 08/10/16 04:57 Dose: 75 mls/hr Propofol (Diprivan) 1,000 mg in 100 mls @ 2.041 mls/hr IV .Q24H PRN; Protocol; 5 MCG/KG/MIN PRN Reason: TITRATE PER MD ORDER Last Titration: 08/09/16 10:35 Dose: 0 mcg/kg/min, 0 mls/hr Diltiazem HCl 125 mg/ Dextrose 125 mls @ 5 mls/hr IV .Q24H [facility]; 5 MG/HR PRN Reason: Protocol Last Admin: 08/10/16 07:41 Dose: Not Given Insulin Human Regular (Novolin R) 0 unit SC Q6H [facility] PRN Reason: Protocol Last Admin: 08/10/16 12:25 Dose: Not Given Labetalol HCl (Trandate) 10 mg IVP Q1 PRN PRN Reason: SBP> 160 mm Hg Last Admin: 08/07/16 01:14 Dose: 10 mg Latanoprost (Xalatan Opht) 0 ml OD HS [facility] Last Admin: 08/09/16 21:52 Dose: 2.5 ml Lisinopril (Zestril) 20 mg PO DAILY [facility] Last Admin: 08/10/16 10:39 Dose: Not Given Metoprolol Tartrate (Lopressor) 50 mg PO BIDBS [facility] Last Admin: 08/10/16 08:05 Dose: 50 mg Sennosides (Senokot Tab) 8.6 mg NG BID [facility] Last Admin: 08/10/16 10:00 Dose: 8.6 mg Timolol Maleate (Timoptic 0.5% Ophth Soln) 0 drop OD DAILY [facility] Last Admin: 08/10/16 10:23 Dose: 1 drop - Labs Labs: 08/10/16 06:28 08/10/16 06:28 PT 11.2 SECONDS (9.7-12.2) 07/30/16 23:18 INR 1.0 07/30/16 23:18 APTT 29 SECONDS (21-34) 07/30/16 23:18
--- NOTE | 2016-08-10 14:17 | RAD ---
HISTORY: intubated COMPARISON: Iris is chest 08/09/16 FINDINGS: LUNGS: In situ ETT, tip of which lies approximately 4.28 cm above astrid. NGT is present, the tip of which is coiled in the left upper quadrant of the abdomen likely within the fundus region of the stomach. Low lung volumes with mild crowded bronchovascular markings and mild bibasilar atelectasis. PLEURA: No significant pleural effusion identified, no pneumothorax apparent. CARDIOVASCULAR: Heart size is borderline/ mildly enlarged. Aorta is slightly ectatic and uncoiled OSSEOUS STRUCTURES: No significant abnormalities. 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 OTHER FINDINGS: None. IMPRESSION: ETT and NGT as above. Low lung volumes with mild crowded bronchovascular markings and mild bibasilar atelectasis.
--- NOTE | 2016-08-10 15:12 | CP.PCM.PN ---
Subjective - Date & Time of Evaluation Date of Evaluation: 08/10/16 Time of Evaluation: 08:40 - Subjective Subjective: Medical Attending Note: Follow-up: Subdural Hemorrhage Patient seen and examined at bedside. Unable to ROS-->patient is currently intubated. Awaiting CT head. Objective - Vital Signs/Intake and Output Vital Signs (last 24 hours): Temp Pulse Resp BP Pulse Ox 98.0 F 77 13 139/79 100 08/10/16 10:00 08/10/16 14:00 08/10/16 14:00 08/10/16 13:53 08/10/16 14:00 Intake and Output: 08/10/16 08/10/16 06:59 18:59 Intake Total 1500 700 Output Total 3295 1165 Balance -1795 -465 - Medications Medications: Current Medications Acetaminophen/Butalbital/Caffeine (Fioricet) 1 tab PO Q4 PRN PRN Reason: Headache Last Admin: 08/08/16 10:50 Dose: 1 tab Diphenhydramine HCl (Benadryl) 50 mg IVP BID [facility] Last Admin: 08/10/16 09:30 Dose: 50 mg Famotidine (Pepcid) 20 mg IVP DAILY [facility] Last Admin: 08/10/16 09:39 Dose: 20 mg Home Med (Patient's Own Drops) 1 drop OS BID [facility] Last Admin: 08/10/16 10:24 Dose: 1 drop Levetiracetam 500 mg/ Sodium (Chloride) 105 mls @ 420 mls/hr IVPB Q12H [facility] Last Admin: 08/10/16 06:01 Dose: 420 mls/hr Sodium Chloride (Sodium Chloride 0.9%) 1,000 mls @ 75 mls/hr IV .[id number] [facility] Last Admin: 08/10/16 04:57 Dose: 75 mls/hr Propofol (Diprivan) 1,000 mg in 100 mls @ 2.041 mls/hr IV .Q24H PRN; Protocol; 5 MCG/KG/MIN PRN Reason: TITRATE PER MD ORDER Last Titration: 08/09/16 10:35 Dose: 0 mcg/kg/min, 0 mls/hr Diltiazem HCl 125 mg/ Dextrose 125 mls @ 5 mls/hr IV .Q24H [facility]; 5 MG/HR PRN Reason: Protocol Last Admin: 08/10/16 07:41 Dose: Not Given Insulin Human Regular (Novolin R) 0 unit SC Q6H [facility] PRN Reason: Protocol Last Admin: 08/10/16 12:25 Dose: Not Given Labetalol HCl (Trandate) 10 mg IVP Q1 PRN PRN Reason: SBP> 160 mm Hg Last Admin: 08/07/16 01:14 Dose: 10 mg Latanoprost (Xalatan Opht) 0 ml OD HS [facility] Last Admin: 08/09/16 21:52 Dose: 2.5 ml Lisinopril (Zestril) 20 mg PO DAILY [facility] Last Admin: 08/10/16 10:39 Dose: Not Given Metoprolol Tartrate (Lopressor) 50 mg PO BIDBS [facility] Last Admin: 08/10/16 08:05 Dose: 50 mg Sennosides (Senokot Tab) 8.6 mg NG BID [facility] Last Admin: 08/10/16 10:00 Dose: 8.6 mg Timolol Maleate (Timoptic 0.5% Ophth Soln) 0 drop OD DAILY [facility] Last Admin: 08/10/16 10:23 Dose: 1 drop - Labs Labs: 08/10/16 06:28 08/10/16 06:28 PT 11.2 SECONDS (9.7-12.2) 07/30/16 23:18 INR 1.0 07/30/16 23:18 APTT 29 SECONDS (21-34) 07/30/16 23:18 - Constitutional Appears: Non-toxic, Combative - Head Exam Additional comments: dressing-Clean/Dry/Intact - Eye Exam Additional comments: right eye: medially deviated; sluggish reactive Left eye: medially deviated - ENT Exam ENT Exam: Mucous Membranes Dry - Respiratory Exam Respiratory Exam: Decreased Breath Sounds. absent: Rales Additional comments: intubated on vent - Cardiovascular Exam Cardiovascular Exam: REGULAR RHYTHM, +S1, +S2 - GI/Abdominal Exam GI & Abdominal Exam: Soft, Normal Bowel Sounds. absent: Distended, Firm, Guarding, Rigid, Tenderness, Rebound - Extremities Exam Extremities Exam: absent: Pedal Edema, Tenderness - Neurological Exam Neuro motor strength exam: Left Upper Extremity: 4, Right Upper Extremity: 5, Left Lower Extremity: 5, Right Lower Extremity: 5 - Skin Skin Exam: Dry, Normal Color, Warm Assessment and Plan (1) Cerebral hemorrhage Status: Acute (2) Hypertension Status: Chronic (3) Diabetes Status: Chronic (4) Constipation Status: Chronic (5) Prophylactic measure Status: Acute - Assessment and Plan (Free Text) Assessment: (1) Cerebral hemorrhage Assessment & Plan: * Critical care: help appreciated * Neurosurgery: Dr. Bolden on board-->help appreciated * Neurology: Dr Bonner on board-->help appreciated * Head CT (07/30/16): CT Head without contrast: 1. The left orbit appears to be rotated 90 degrees to the right while the right orbit appears to be oriented normally. 2. 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 This results in severe mass effect on the underlying brain, including 1.4 cm of leftward midline shift and compression of the right lateral ventricle. Asymmetric enlargement of the right temporal horn suggestive of early entrapment. * Head CT (08/02/16): satisfactory postoperative status following craniotomy, evacuation of large extra-axial fluid collection on the right. No new intra- axial abnormalities. Improved edema, mass effect. No evidence of acute infarction. * Head CT (08/04/16) showed acute extra-axial hemorrhage with blood layering in the extra-axial space. Increase in sulcal effacement, mass effect and midline shift. There is no evidence of herniation. This follows removal of the surgical drain identified previously. * Head CT (08/06/16): status post surgical intervention, placement of drainage catheter into the extra-axial space at the site prior subdural hematoma edema, mass effect and midline shift have improved considerably. No new or significant findings identified. * Head CT (08/07/16): status post drainage of right subdural hematoma. Drainage catheter is nora in the extra axial space. Air and fluid in the usbdral space with an average thickeness of 9mm * POD 9: s/p Kyler hole and evacuation of subdural hemorrhage with [place] and David drain * POD 5 s/p right frontotemporal craniotomy; evacuation of acute subdural drain present * Removal of drain on 08/03/16 * Keppra 500mg IVPB Q 12hours for seizure prophylaxis * Sodium 2tabs PO Q 8 hours started--> monitor sodium * NS 125cc/hr; Sodium tablets * Per neurosurgery, prefers patient off anticoagulation * continue Neurochecks * No pain/no sedatives * Intubated on 08/07/16, off sedation * Stop Tylenol secondary transaminits * pending repeat CT head today; discussed with ICU Status: Acute (2) Hypertension Assessment & Plan: Lisinopril 20mg PO daily NS 1S 75 cc/hr Monitor vitals signs Status: Chronic (3) Diabetes Assessment & Plan: [id number]: 5.9 Controlled Accuchecks Q6 hours Regular insulin sliding scale subq Q 6hours on feedings Status: Chronic (4) Prophylactic measure Assessment & Plan: Neurosurgery prefers patient off anticoagulation per prior discussion with ICU NGT tube Pepcid 20mg PO daily No benzos Seizure prophylaxis Blood cultures negative X 5days Status: Acute
--- NOTE | 2016-08-10 16:59 | CT ---
PROCEDURE: CT HEAD WITHOUT CONTRAST. HISTORY: f/u subdural hematoma, s/p evacuation COMPARISON: None available. TECHNIQUE: Axial computed tomography images were obtained through the head/brain without intravenous contrast. Radiation dose: Total exam DLP = 1111.21 mGy-cm. This CT exam was performed using one or more of the following dose reduction techniques: Automated exposure control, adjustment of the mA and/or kV according to patient size, and/or use of iterative reconstruction technique. FINDINGS: HEMORRHAGE: Re- demonstrated is right-sided parietal craniotomy defect with residual mixed attenuation subdural collection of. Subdural drainage catheter has been removed. Few small bubbles of subdural air remain. Of persistent mild mass effect with compression of the right cerebral hemisphere and very mild compression of the right lateral ventricle. Minimal [id number] midline shift. The septum pellucidum is displaced to the left of midline approximately 2.2 mm. . No new hemorrhage is identified. BRAIN: Mild chronic periventricular white matter ischemic changes. VENTRICLES: Unremarkable. No hydrocephalus. CALVARIUM: As above. Mild soft tissue swelling overlies the right parietal craniotomy defect. Multiple skin closure uriel remain in place. PARANASAL SINUSES: Unremarkable as visualized. No significant inflammatory changes. MASTOID AIR CELLS: Unremarkable as visualized. No inflammatory changes. OTHER FINDINGS: Dysconjugate gaze and/or strabismus. Patient is status post right-sided cataract surgery. Suspect bilateral coloboma or staphyloma IMPRESSION: Status post removal right-sided subdural drainage catheter. Small residual mixed attenuation subdural collection with diminished amount of subdural air. Persistent mild mass effect with compressive effects on the right cerebral hemisphere as described. Minimal [id number] midline shift. Dysconjugate gaze and/or strabismus. 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 Status post right-sided cataract surgery.
[2016-08-10] MEDS: Latanoprost 2.5 ml Opht Soln OD SCH (23:00)
[2016-08-11] MEDS: (Novolin R) Insulin Human Regular 100 units/ml vial SC SCH ×4 (00:08→17:58)
[2016-08-11 05:51] LABS: ABG ALLEN TEST POS; ARTERIAL BLOOD HGB O2 SAT 96.2 % (95.0-98.0); CARBOXYHEMOGLOBIN 2.1 % (0.5-1.5); DRAW SITE RR; HHB 0.3 % (0.0-5.0); METHEMOGLOBIN 1.4 % (0.0-3.0)
[2016-08-11] MEDS: levETIRAcetam 500 MG in Sodium Chloride 0.9% 100 ML IVPB SCH ×2 (06:05→17:06)
[2016-08-11 06:38] LABS: BASO # 0.1 K/uL (0.0-0.2); BASO % 0.5 % (0.0-2.0); EOS # 0.5 K/uL (0.0-0.7); MONO # 1.2 K/uL (0.0-0.8); RED CELL DISTRIBUTION WIDTH 13.7 % (11.5-14.5)
[2016-08-11 06:55] LABS: EOS % 4.7 % (0.0-4.0); HEMATOCRIT 31.4 % (35.0-51.0); LYMPH # 2.8 K/uL (1.0-4.3); LYMPH % 23.7 % (20.0-40.0); MEAN CELL VOLUME 80.6 fL (80.0-94.0); MEAN CORPUSCULAR HEMOGLOBIN 26.2 pg (27.0-31.0); MEAN CORPUSCULAR HGB CONC 32.5 g/dL (33.0-37.0); MEAN PLATELET VOLUME 8.8 fL (7.2-11.7); MONO % 10.1 % (0.0-10.0); NRBC % 0.1 % (0.0-2.0); WHITE BLOOD COUNT 11.6 K/uL (4.8-10.8)
[2016-08-11 07:05] LABS: CHLORIDE 101 mmol/L (98-107); SODIUM 134 mmol/L (132-148)
[2016-08-11 07:06] LABS: POTASSIUM 3.6 mmol/L (3.6-5.2)
[2016-08-11 07:07] LABS: GFR AFRICAN-AMERICAN > 60
[2016-08-11 07:08] LABS: ALKALINE PHOSPHATASE 168 U/L (38-126); ALT/SGPT 92 U/L (21-72); AST/SGOT 51 U/L (17-59); BILIRUBIN,TOTAL 0.8 mg/dL (0.2-1.3); BLOOD UREA NITROGEN 12 mg/dL (9-20); CARBON DIOXIDE 22 mmol/L (22-30); GLUCOSE,RANDOM 123 mg/dL (75-110); PHOSPHOROUS 3.4 mg/dL (2.5-4.5); TOTAL PROTEIN 6.5 g/dL (6.3-8.3)
[2016-08-11 07:09] LABS: CALCIUM 8.1 mg/dl (8.6-10.4); MAGNESIUM 1.9 mg/dL (1.6-2.3)
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
[2016-08-11] MEDS: [UNRECOGNIZED DRUG - OTHER] OS SCH ×2 (09:13→17:07)
[2016-08-11] MEDS: DiphenhydrAMINE 50 mg/ml Inj IVP SCH ×2 (09:14→17:05)
[2016-08-11] MEDS: Sodium Chloride 0.9% 1,000 ML IV SCH (10:43)
--- NOTE | 2016-08-11 17:11 | CP.PCM.PN ---
Subjective - Date & Time of Evaluation Date of Evaluation: 08/11/16 Time of Evaluation: 17:08 - Subjective Subjective: somnolent not easily awakened on benadryl 50mg bid Objective - Vital Signs/Intake and Output Vital Signs (last 24 hours): Temp Pulse Resp BP Pulse Ox 98.8 F 97 H 24 115/82 97 08/11/16 16:00 08/11/16 16:05 08/11/16 16:05 08/11/16 16:05 08/11/16 16:05 Intake and Output: 08/11/16 08/11/16 06:59 18:59 Intake Total 1275 1300 Output Total 1275 260 Balance 0 1040 - Medications Medications: Current Medications Diphenhydramine HCl (Benadryl) 50 mg IVP BID [facility] Last Admin: 08/11/16 09:14 Dose: 50 mg Famotidine (Pepcid) 20 mg IVP DAILY [facility] Last Admin: 08/11/16 09:14 Dose: 20 mg Fluticasone Propionate (Flonase) 1 spr BO BID [facility] Home Med (Patient's Own Drops) 1 drop OS BID [facility] Last Admin: 08/11/16 09:13 Dose: 1 drop Levetiracetam 500 mg/ Sodium (Chloride) 105 mls @ 420 mls/hr IVPB Q12H [facility] Last Admin: 08/11/16 06:05 Dose: 420 mls/hr Sodium Chloride (Sodium Chloride 0.9%) 1,000 mls @ 75 mls/hr IV .[id number] [facility] Last Admin: 08/11/16 10:43 Dose: 75 mls/hr Propofol (Diprivan) 1,000 mg in 100 mls @ 2.041 mls/hr IV .Q24H PRN; Protocol; 5 MCG/KG/MIN PRN Reason: TITRATE PER MD ORDER Last Titration: 08/09/16 10:35 Dose: 0 mcg/kg/min, 0 mls/hr Diltiazem HCl 125 mg/ Dextrose 125 mls @ 5 mls/hr IV .Q24H [facility]; 5 MG/HR PRN Reason: Protocol Last Admin: 08/11/16 10:01 Dose: Not Given Insulin Human Regular (Novolin R) 0 unit SC Q6H [facility] PRN Reason: Protocol Last Admin: 08/11/16 12:44 Dose: 4 unit Labetalol HCl (Trandate) 10 mg IVP Q1 PRN PRN Reason: SBP> 160 mm Hg Last Admin: 08/07/16 01:14 Dose: 10 mg Latanoprost (Xalatan Opht) 0 ml OD HS [facility] Last Admin: 08/10/16 23:00 Dose: 2.5 ml Lisinopril (Zestril) 20 mg PO DAILY [facility] Last Admin: 08/11/16 10:12 Dose: Not Given Metoprolol Tartrate (Lopressor) 50 mg PO BIDBS [facility] Last Admin: 08/11/16 07:44 Dose: 50 mg Sennosides (Senokot Tab) 8.6 mg NG BID [facility] Last Admin: 08/11/16 10:02 Dose: Not Given Timolol Maleate (Timoptic 0.5% Ophth Soln) 0 drop OD DAILY [facility] Last Admin: 08/11/16 09:14 Dose: 1 drop - Labs Labs: 08/11/16 06:30 08/11/16 06:30 PT 11.2 SECONDS (9.7-12.2) 07/30/16 23:18 INR 1.0 07/30/16 23:18 APTT 29 SECONDS (21-34) 07/30/16 23:18 - Head Exam Head Exam: ATRAUMATIC Additional comments: right side post surgical dressing NG tube - Eye Exam Additional comments: left eye blindness - Cardiovascular Exam Cardiovascular Exam: REGULAR RHYTHM, +S1, +S2 - GI/Abdominal Exam GI & Abdominal Exam: Soft, Normal Bowel Sounds. absent: Tenderness - Neurological Exam Neurological Exam: absent: Alert, Awake, Oriented x3 Additional comments: spont movement of all ext and withdrawal to pain family says that he recognized them - Psychiatric Exam Psychiatric exam: absent: Normal Affect - Skin Skin Exam: Normal Color Assessment and Plan - Assessment and Plan (Free Text) Assessment: (1) Cerebral hemorrhage Assessment & Plan: * Critical care: help appreciated * Neurosurgery: Dr. Bolden on board-->post op care being managed by Neurosurgery * Neurology: Dr Bonner on board-->help appreciated * Per neurosurgery, prefers patient off anticoagulation * continue Neurochecks * No pain/no sedatives * extubated now off sedation but on benadryl * repeat CT head on 08/10 improved from admission * discussed with daughter at bedside * continue ICU care Status: Acute (2) Hypertension (3) Diabetes/Nutrition iss on tube feedings (4) Prophylactic measure Assessment & Plan: Neurosurgery prefers patient off anticoagulation per prior discussion with ICU NGT tube Pepcid 20mg PO daily No benzos Seizure prophylaxis Blood cultures negative X 5days Status: Acute
[2016-08-11] MEDS: Fluticasone Nasal 50 mcg/Spray NAS SCH (18:18)
[2016-08-11] MEDS: Latanoprost 2.5 ml Opht Soln OD SCH (22:21)
[2016-08-11] MEDS: Docusate-Senna 50 mg-8.6 mg Tab PO SCH (23:22)
[2016-08-12] MEDS: (Novolin R) Insulin Human Regular 100 units/ml vial SC SCH ×4 (01:19→18:53)
[2016-08-12] MEDS: levETIRAcetam 500 MG in Sodium Chloride 0.9% 100 ML IVPB SCH ×2 (05:29→18:50)
[2016-08-12 07:50] LABS: BASO # 0.1 K/uL (0.0-0.2); BASO % 0.4 % (0.0-2.0); EOS # 0.1 K/uL (0.0-0.7); EOS % 0.4 % (0.0-4.0); HEMATOCRIT 38.4 % (35.0-51.0); LYMPH # 2.6 K/uL (1.0-4.3); LYMPH % 8.3 % (20.0-40.0); MEAN CELL VOLUME 82.1 fL (80.0-94.0); MEAN CORPUSCULAR HEMOGLOBIN 26.3 pg (27.0-31.0); MEAN PLATELET VOLUME 9.4 fL (7.2-11.7); MONO # 3.4 K/uL (0.0-0.8); MONO % 10.9 % (0.0-10.0); NRBC % 0.1 % (0.0-2.0); PLATELET COUNT 424 K/uL (130-400); RED CELL DISTRIBUTION WIDTH 13.9 % (11.5-14.5)
[2016-08-12 08:02] LABS: WHITE BLOOD COUNT 31.2 K/uL (4.8-10.8)
[2016-08-12 08:40] LABS: EOSINOPHIL 1 % (0-4); NEUTROPHIL 76 % (50-75); TOTAL CELLS COUNTED 100
[2016-08-12 08:41] LABS: LARGE PLATELETS PRESENT
[2016-08-12 08:42] LABS: GIANT PLATELETS PRESENT
[2016-08-12 09:19] LABS: URINE BACTERIA MANY (<OCC); URINE BILIRUBIN NEGATIVE (NEGATIVE); URINE BLOOD NEGATIVE (NEGATIVE); URINE GLUCOSE (UA) NORMAL (Normal); URINE KETONE NEGATIVE (NEGATIVE); URINE LEUKOCYTE ESTERASE 2+ Leu/uL (Negative); URINE PROTEIN 2+ mg/dL (NEGATIVE); WBC CLUMPS FEW /hpf; WBC URINE 269 /hpf (0-5)
[2016-08-12 09:24] LABS: RBC URINE 28 /hpf (0-3); URINE COLOR YELLOW (YELLOW)
[2016-08-12 10:17] LABS: ABG ALLEN TEST POS; ARTERIAL BLOOD HGB O2 SAT 95.9 % (95.0-98.0); DRAW SITE RRADIAL; METHEMOGLOBIN 1.1 % (0.0-3.0)
[2016-08-12] MEDS: Fluticasone Nasal 50 mcg/Spray NAS SCH ×2 (11:10→18:50)
[2016-08-12] MEDS: Etomidate 20 mg/10ml Inj IV ONE (11:44)
[2016-08-12] MEDS: [UNRECOGNIZED DRUG - OTHER] OS SCH ×2 (11:49→18:56)
[2016-08-12] MEDS: Propofol 10 mg/ml 1,000 MG/100 ML VIAL IV PRN (11:59)
[2016-08-12] MEDS: Sodium Chloride 0.9% 1,000 ML IV SCH ×2 (12:00→23:00)
[2016-08-12 12:09] LABS: ABG ALLEN TEST POS; ABG MECHANICAL RATE 16; ARTERIAL BLOOD HGB O2 SAT 96.2 % (95.0-98.0); ATERIAL BLOOD GAS PEEP 5; CARBOXYHEMOGLOBIN 1.7 % (0.5-1.5); DRAW SITE LRADIAL; HHB 0.6 % (0.0-5.0); METHEMOGLOBIN 1.6 % (0.0-3.0)
[2016-08-12 12:11] LABS: BASO # 0.1 K/uL (0.0-0.2); BASO % 0.2 % (0.0-2.0); EOS # 0.1 K/uL (0.0-0.7); EOS % 0.3 % (0.0-4.0); HEMATOCRIT 31.1 % (35.0-51.0); LYMPH % 7.8 % (20.0-40.0); MEAN CORPUSCULAR HGB CONC 32.2 g/dL (33.0-37.0); MEAN PLATELET VOLUME 8.6 fL (7.2-11.7); MONO # 1.8 K/uL (0.0-0.8); MONO % 7.3 % (0.0-10.0); PLATELET COUNT 407 K/uL (130-400); RED CELL DISTRIBUTION WIDTH 13.7 % (11.5-14.5); WHITE BLOOD COUNT 24.9 K/uL (4.8-10.8)
[2016-08-12 12:36] LABS: NEUTROPHIL 79 % (50-75); TOTAL CELLS COUNTED 100
[2016-08-12 12:38] LABS: LARGE PLATELETS PRESENT
[2016-08-12 12:40] LABS: CHLORIDE 104 mmol/L (98-107)
[2016-08-12 12:41] LABS: POTASSIUM 3.6 mmol/L (3.6-5.2); SODIUM 135 mmol/L (132-148)
[2016-08-12 12:43] LABS: BILIRUBIN,TOTAL 0.6 mg/dL (0.2-1.3); CARBON DIOXIDE 21 mmol/L (22-30); GFR AFRICAN-AMERICAN > 60
[2016-08-12 12:44] LABS: ALB/GLOB RATIO 0.9 (1.0-2.1); ALKALINE PHOSPHATASE 157 U/L (38-126); ALT/SGPT 93 U/L (21-72); AST/SGOT 43 U/L (17-59); BLOOD UREA NITROGEN 17 mg/dL (9-20); CALCIUM 8.2 mg/dl (8.6-10.4); GLUCOSE,RANDOM 169 mg/dL (75-110); PHOSPHOROUS 3.4 mg/dL (2.5-4.5); TOTAL PROTEIN 6.4 g/dL (6.3-8.3)
--- NOTE | 2016-08-12 15:01 | RAD ---
HISTORY: pneumonia COMPARISON: 08/10/2016 FINDINGS: LUNGS: Interval removal ETT. Ramon In situ NGT, the tip of which is located in the fundus region of the stomach. Suspect minor bibasilar atelectasis. PLEURA: No significant pleural effusion identified, no pneumothorax apparent. Questionable pleural-based calcification right hemidiaphragm CARDIOVASCULAR: Normal. OSSEOUS STRUCTURES: No significant abnormalities. VISUALIZED UPPER ABDOMEN: Normal. OTHER FINDINGS: None. IMPRESSION: Interval removal ETT. NGT remains in place as above. Mild bibasilar atelectasis. . Questionable pleural base calcification right hemidiaphragm.
--- NOTE | 2016-08-12 15:20 | RAD ---
HISTORY: intubation COMPARISON: Comparison chest 08/12/2016 at 0839 hours. FINDINGS: LUNGS: In situ ETT, tip of which lies approximately 3.1 cm above astrid. NGT is present, with tip of which overlies fundal region of the stomach. Mild bibasilar atelectasis. Curvilinear density right hemidiaphragm may represent calcified pleural plaque. Suspect minor bibasilar atelectasis. PLEURA: No apparent pneumothorax. Apparent. CARDIOVASCULAR: Normal. OSSEOUS STRUCTURES: No significant abnormalities. VISUALIZED UPPER ABDOMEN: Normal. OTHER FINDINGS: None. IMPRESSION: In situ ETT and NGT as above. Mild bibasilar atelectasis. Probable calcified pleural plaque right kate diaphragm
[2016-08-12] MEDS ORDERED: Acetaminophen 650mg/20.3ml solution UD PO STA (20:08)
--- NOTE | 2016-08-12 21:55 | CP.PCM.PN ---
Subjective - Date & Time of Evaluation Date of Evaluation: 08/12/16 Time of Evaluation: 18:00 - Subjective Subjective: Medical Attending Note Follow-up: Subdural hemorrhage, Leukocytosis Patient seen and examined. Unable to review ROS given patient's clinical status. Patient's daughter and son present at bedside. Patient was intubated during the day and started on IV antibiotics per ICU given fever and associated leukocytosis and started on low dose pressor. Objective - Vital Signs/Intake and Output Vital Signs (last 24 hours): Temp Pulse Resp BP Pulse Ox 101.0 F H 83 21 139/72 100 08/12/16 20:30 08/12/16 18:00 08/12/16 18:00 08/12/16 17:54 08/12/16 18:00 Intake and Output: 08/12/16 08/13/16 18:59 06:59 Intake Total 1272.7 103.8 Output Total 860 75 Balance 412.7 28.8 - Medications Medications: Current Medications Acetaminophen (Tylenol 650mg/20.3ml Solution Ud) 650 mg NG Q6 PRN PRN Reason: Fever >100.4 F Famotidine (Pepcid) 20 mg PO DAILY [facility] Last Admin: 08/12/16 11:09 Dose: 20 mg Fluticasone Propionate (Flonase) 1 spr BO BID [facility] Last Admin: 08/12/16 18:50 Dose: Not Given Home Med (Patient's Own Drops) 1 drop OS BID [facility] Last Admin: 08/12/16 18:56 Dose: 1 drop Levetiracetam 500 mg/ Sodium (Chloride) 105 mls @ 420 mls/hr IVPB Q12H [facility] Last Admin: 08/12/16 18:50 Dose: 420 mls/hr Cefepime HCl 1 gm/ Dextrose 50 mls @ 100 mls/hr IVPB Q12H [facility] Last Admin: 08/12/16 19:30 Dose: 100 mls/hr Vancomycin HCl 1,000 mg/ (Sodium Chloride) 250 mls @ 166.6 mls/hr IVPB Q12H [facility] Last Admin: 08/12/16 20:45 Dose: 166.6 mls/hr Propofol (Diprivan) 1,000 mg in 100 mls @ 2.313 mls/hr IV .Q24H PRN; Protocol; 5 MCG/KG/MIN PRN Reason: TITRATE PER MD ORDER Last Admin: 08/12/16 11:59 Dose: 5 mcg/kg/min, 2.313 mls/hr Sodium Chloride (Sodium Chloride 0.9%) 1,000 mls @ 100 mls/hr IV .Q10H [facility] Last Admin: 08/12/16 12:00 Dose: 100 mls/hr Norepinephrine Bitartrate 4 mg (/ Dextrose) 254 mls @ 7.62 mls/hr IV .Q24H PRN ; Protocol; 2 MCG/MIN PRN Reason: TITRATE PER MD ORDER Last Admin: 08/12/16 15:00 Dose: 0.99 mcg/min, 3.8 mls/hr Insulin Human Regular (Novolin R) 0 unit SC Q6H [facility] PRN Reason: Protocol Last Admin: 08/12/16 18:53 Dose: Not Given Latanoprost (Xalatan Opht) 0 ml OD [facility] Last Admin: 08/11/16 22:21 Dose: 2.5 ml Metoprolol Tartrate (Lopressor) 50 mg PO BIDBS [facility] Last Admin: 08/12/16 17:42 Dose: Not Given Senna/Docusate Sodium (Senokot S 50 Mg-8.6 Mg) 1 tab PO [facility] Last Admin: 08/11/16 23:22 Dose: Not Given Sennosides (Senokot Tab) 8.6 mg NG BID [facility] Last Admin: 08/12/16 17:42 Dose: Not Given Timolol Maleate (Timoptic 0.5% Ophth Soln) 0 drop OD DAILY [facility] Last Admin: 08/12/16 11:49 Dose: 1 drop - Labs Labs: 08/12/16 12:00 08/12/16 12:00 PT 11.2 SECONDS (9.7-12.2) 07/30/16 23:18 INR 1.0 07/30/16 23:18 APTT 29 SECONDS (21-34) 07/30/16 23:18 - Constitutional Appears: Chronically Ill - Head Exam Head Exam: NORMAL INSPECTION Additional comments: bandages over right aspect of scale: intact intubated NGT tube Scds b/l [place] present - ENT Exam ENT Exam: Mucous Membranes Dry - Respiratory Exam Respiratory Exam: Decreased Breath Sounds, Rhonchi. absent: Stridor - Cardiovascular Exam Cardiovascular Exam: REGULAR RHYTHM, +S1, +S2 - GI/Abdominal Exam GI & Abdominal Exam: Soft, Normal Bowel Sounds. absent: Distended, Firm, Guarding, Rigid, Tenderness, Rebound - Skin Skin Exam: Dry, Normal Color, Warm Assessment and Plan (1) Cerebral hemorrhage Status: Acute (2) Hypertension Status: Chronic (3) Diabetes Status: Chronic (4) Constipation Status: Chronic (5) Leukocytosis Status: Acute (6) Prophylactic measure Status: Acute - Assessment and Plan (Free Text) Assessment: (1) Cerebral hemorrhage Assessment & Plan: * Critical care: help appreciated * Neurosurgery: Dr. Bolden on board-->help appreciated * Neurology: Dr Bonner on board-->help appreciated * Head CT (07/30/16): CT Head without contrast: 1. The left orbit appears to be rotated 90 degrees to the right while the right orbit appears to be oriented normally. 2. 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 This results in severe mass effect on the underlying brain, including 1.4 cm of leftward midline shift and compression of the right lateral ventricle. Asymmetric enlargement of the right temporal horn suggestive of early entrapment. * Head CT (08/02/16): satisfactory postoperative status following craniotomy, evacuation of large extra-axial fluid collection on the right. No new intra- axial abnormalities. Improved edema, mass effect. No evidence of acute infarction. * Head CT (08/04/16) showed acute extra-axial hemorrhage with blood layering in the extra-axial space. Increase in sulcal effacement, mass effect and midline shift. There is no evidence of herniation. This follows removal of the surgical drain identified previously. * Head CT (08/06/16): status post surgical intervention, placement of drainage catheter into the extra-axial space at the site prior subdural hematoma edema, mass effect and midline shift have improved considerably. No new or significant findings identified. * Head CT (08/07/16): status post drainage of right subdural hematoma. Drainage catheter is nora in the extra axial space. Air and fluid in the usbdral space with an average thickeness of 9mm * Head CT (08/10/16): status post removal right sided subdural drainage catheter. Small residual mixed attenuation subdural collection with diminished amount of subdural air. Persistent mild mass effect with compressive effects on the right cerebral hemisphere. Minial right to left midline shift. Dysconjugate gaze and/ or strabismus. 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 status post right sided cataract surgery * POD 11: s/p [place] hole and evacuation of subdural hemorrhage with [place] and [place] drain * POD 7 s/p right frontotemporal craniotomy; evacuation of acute subdural drain present * Removal of drain on 08/03/16 * Keppra 500mg IVPB Q 12hours for seizure prophylaxis * Per neurosurgery, prefers patient off anticoagulation * continue Neurochecks * off sedation; intubated on 08/12/16, on NS 100cc/hr and low dose pressor * pending repeat CT head today; discussed with ICU Status: Acute (2) Hypertension Assessment & Plan: * NS 100c cc/hr * on low dose pressor * Monitor vitals signs Status: Chronic (3) Diabetes Assessment & Plan: * [id number]: 5.9 * Controlled * Accuchecks Q6 hours * Regular insulin sliding scale subq Q 6hours * on feedings Status: Chronic (4) Leukocytosis Assessment & Plan: * Blood cultures X2, urine culture (08/12/16) * Elevated white count in 31-->24 * Started on Cefepime 1 gram Q 12hour and Vancomycin 1g IV Q 12hours * Febrile, leukocytosis * UA: pyuria, hematuria, +esterase (5) Prophylactic measure Assessment & Plan: * Neurosurgery prefers patient off anticoagulation per prior discussion with ICU * NGT tube * Pepcid 20mg PO daily * No benzos * Seizure prophylaxis * Intubated * On sedation Status: Acute
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
[2016-08-12] MEDS: Docusate-Senna 50 mg-8.6 mg Tab PO SCH (22:45)
[2016-08-13] MEDS: Acetaminophen 650mg/20.3ml solution UD NG PRN ×3 (00:40→18:15)
[2016-08-13] MEDS: (Novolin R) Insulin Human Regular 100 units/ml vial SC SCH ×4 (00:43→18:19)
[2016-08-13] MEDS: Latanoprost 2.5 ml Opht Soln OD SCH ×2 (00:45→21:42)
[2016-08-13] MEDS: levETIRAcetam 500 MG in Sodium Chloride 0.9% 100 ML IVPB SCH (05:00)
[2016-08-13 05:23] LABS: ABG ALLEN TEST POS; ABG MECHANICAL RATE 16; ARTERIAL BLOOD HGB O2 SAT 96.8 % (95.0-98.0); ATERIAL BLOOD GAS PEEP 5; CARBOXYHEMOGLOBIN 1.4 % (0.5-1.5); DRAW SITE L RAD; HHB 0.3 % (0.0-5.0); METHEMOGLOBIN 1.5 % (0.0-3.0)
[2016-08-13 06:28] LABS: BASO # 0.1 K/uL (0.0-0.2); BASO % 0.3 % (0.0-2.0); EOS # 0.3 K/uL (0.0-0.7); EOS % 1.3 % (0.0-4.0); HEMATOCRIT 29.1 % (35.0-51.0); LYMPH # 1.9 K/uL (1.0-4.3); MEAN CELL VOLUME 80.5 fL (80.0-94.0); MEAN CORPUSCULAR HEMOGLOBIN 26.1 pg (27.0-31.0); MEAN CORPUSCULAR HGB CONC 32.4 g/dL (33.0-37.0); MEAN PLATELET VOLUME 8.9 fL (7.2-11.7); MONO # 1.3 K/uL (0.0-0.8); MONO % 5.4 % (0.0-10.0); PLATELET COUNT 383 K/uL (130-400); RED CELL DISTRIBUTION WIDTH 13.7 % (11.5-14.5)
[2016-08-13 06:33] LABS: CHLORIDE 104 mmol/L (98-107); POTASSIUM 3.6 mmol/L (3.6-5.2); SODIUM 135 mmol/L (132-148)
[2016-08-13 06:35] LABS: BILIRUBIN,TOTAL 0.6 mg/dL (0.2-1.3); GFR AFRICAN-AMERICAN > 60
[2016-08-13 06:36] LABS: ALB/GLOB RATIO 0.9 (1.0-2.1); ALKALINE PHOSPHATASE 156 U/L (38-126); ALT/SGPT 76 U/L (21-72); AST/SGOT 35 U/L (17-59); BLOOD UREA NITROGEN 14 mg/dL (9-20); CARBON DIOXIDE 21 mmol/L (22-30); GLUCOSE,RANDOM 185 mg/dL (75-110); PHOSPHOROUS 2.8 mg/dL (2.5-4.5); TOTAL PROTEIN 6.1 g/dL (6.3-8.3)
[2016-08-13 08:09] LABS: NEUTROPHIL 85 % (50-75); TOTAL CELLS COUNTED 100
[2016-08-13 08:10] LABS: LARGE PLATELETS PRESENT
--- NOTE | 2016-08-13 08:43 | CT ---
PROCEDURE: CT HEAD WITHOUT CONTRAST. HISTORY: bleeding COMPARISON: 08/10/2016 TECHNIQUE: Axial computed tomography images were obtained through the head/brain without intravenous contrast. Radiation dose: Total exam DLP = 2469.05 mGy-cm. This CT exam was performed using one or more of the following dose reduction techniques: Automated exposure control, adjustment of the mA and/or kV according to patient size, and/or use of iterative reconstruction technique. FINDINGS: HEMORRHAGE: Right subdural collection again noted, low in attenuation and unchanged in appearance from prior examination of 08/10/2016. No parenchymal hemorrhage identified. Few bubbles of residual extra-axial air, decreased from prior examination. BRAIN: No intracranial mass. No evidence of acute infarct. There is mass effect upon the gyri of the right lateral cerebral convexity, as a result of the subdural collection. VENTRICLES: No hydrocephalus. 1-2 mm midline shift towards the left, unchanged. CALVARIUM: Status post right parietal craniotomy. PARANASAL SINUSES: Minimal chronic right maxillary sinusitis. MASTOID AIR CELLS: Unremarkable as visualized. No inflammatory changes. OTHER FINDINGS: Nasogastric tube noted IMPRESSION: Right cerebral convexity subdural, unchanged. Status post right parietal craniotomy. No parenchymal hemorrhage. Minimal midline shift, 1-2 mm, unchanged. Few bubbles of residual extra-axial air, decreased. No evidence of acute hemorrhage. Preliminary interpretation of this examination was reported by [employer] at 11:31 p.m. on 08/12/2016. There is concurrence of this report with the preliminary interpretation.
[2016-08-13] MEDS: Sodium Chloride 0.9% 1,000 ML IV SCH ×2 (09:05→11:00)
--- NOTE | 2016-08-13 09:38 | RAD ---
PROCEDURE: CHEST RADIOGRAPH, 1 VIEW HISTORY: vented COMPARISON: None available. FINDINGS: LUNGS: Clear. PLEURA: No pneumothorax or pleural fluid seen. CARDIOVASCULAR: Normal heart size. Endotracheal tube tip at tracheal astrid and should be withdrawn several cm. Nasogastric tube appropriately positioned in left upper quadrant of abdomen. OSSEOUS STRUCTURES: No significant abnormalities. VISUALIZED UPPER ABDOMEN: Normal. OTHER FINDINGS: None. IMPRESSION: ET tube tip at tracheal atsrid and should be withdrawn several cm. Otherwise no significant change. Findings were discussed with the patient's nurse, July, by telephone at 9:30 a.m. on 08/13/2016
[2016-08-13] MEDS: Fluticasone Nasal 50 mcg/Spray NAS SCH ×2 (10:33→18:25)
[2016-08-13] MEDS: [UNRECOGNIZED DRUG - OTHER] OS SCH ×2 (10:35→18:26)
--- NOTE | 2016-08-13 10:41 | RAD ---
HISTORY: s/p PICC Placement COMPARISON: Chest x-ray performed 08/13/16 TECHNIQUE: Chest, one view. FINDINGS: Endotracheal tube terminates approximately 2.1 cm above the astrid. Nasogastric tube extends expected location of the stomach. Right-sided PICC terminates at the expected location of the cavoatrial junction. LUNGS: No focal consolidation. Please note that chest x-ray has limited sensitivity for the detection of pulmonary masses. PLEURA: No significant pleural effusion identified. No definite pneumothorax . CARDIOVASCULAR: The cardiomediastinal silhouette appears within normal limits of size. OSSEOUS STRUCTURES: No acute osseous abnormality identified. VISUALIZED UPPER ABDOMEN: Unremarkable. OTHER FINDINGS: None. IMPRESSION: Support lines and tubes as above.
[2016-08-13] MEDS: Propofol 10 mg/ml 1,000 MG/100 ML VIAL IV PRN (14:38)
--- NOTE | 2016-08-13 15:02 | CP.PCM.PN ---
Subjective - Date & Time of Evaluation Date of Evaluation: 08/13/16 Time of Evaluation: 12:00 - Subjective Subjective: Mr. Renee Lopez was seen and examined today in the ICU with family at bedside. He had been re-intubated last night after respiratory distress presumably due to obstruction. He is currently stable, but somnolent and responsive to painful stimulus. The last fever was recorded at 10 AM was 101.1 F. He is on cefepime and vanco and sedated with propofol. Objective - Vital Signs/Intake and Output Vital Signs (last 24 hours): Temp Pulse Resp BP Pulse Ox 99.4 F 80 17 127/62 100 08/13/16 11:24 08/13/16 13:24 08/13/16 13:24 08/13/16 13:24 08/13/16 13:24 Intake and Output: 08/13/16 08/13/16 06:59 18:59 Intake Total 1726.6 1200 Output Total 670 395 Balance 1056.6 805 - Medications Medications: Current Medications Acetaminophen (Tylenol 650mg/20.3ml Solution Ud) 650 mg NG Q6 PRN PRN Reason: Fever >100.4 F Last Admin: 08/13/16 10:24 Dose: 650 mg Famotidine (Pepcid) 20 mg PO DAILY [facility] Last Admin: 08/13/16 10:28 Dose: 20 mg Fluticasone Propionate (Flonase) 1 spr BO BID [facility] Last Admin: 08/13/16 10:33 Dose: 1 spray Home Med (Patient's Own Drops) 1 drop OS BID [facility] Last Admin: 08/13/16 10:35 Dose: 1 drop Cefepime HCl 1 gm/ Dextrose 50 mls @ 100 mls/hr IVPB Q12H [facility] Last Admin: 08/13/16 07:57 Dose: 100 mls/hr Vancomycin HCl 1,000 mg/ (Sodium Chloride) 250 mls @ 166.6 mls/hr IVPB Q12H [facility] Last Admin: 08/13/16 09:17 Dose: 166.6 mls/hr Propofol (Diprivan) 1,000 mg in 100 mls @ 2.313 mls/hr IV .Q24H PRN; Protocol; 5 MCG/KG/MIN PRN Reason: TITRATE PER MD ORDER Last Admin: 08/13/16 14:38 Dose: 20 mcg/kg/min, 9.253 mls/hr Norepinephrine Bitartrate 4 mg (/ Dextrose) 254 mls @ 7.62 mls/hr IV .Q24H PRN ; Protocol; 2 MCG/MIN PRN Reason: TITRATE PER MD ORDER Last Admin: 08/12/16 15:00 Dose: 0.99 mcg/min, 3.8 mls/hr Sodium Chloride (Sodium Chloride 0.9%) 1,000 mls @ 50 mls/hr IV .Q20H [facility] Last Admin: 08/13/16 11:00 Dose: 50 mls/hr Insulin Human Regular (Novolin R) 0 unit SC Q6H [facility] PRN Reason: Protocol Last Admin: 08/13/16 13:22 Dose: 1 unit Latanoprost (Xalatan Opht) [address] [facility] Last Admin: 08/13/16 00:45 Dose: 2.5 ml Senna/Docusate Sodium (Senokot S 50 Mg-8.6 Mg) [address] [facility] Last Admin: 08/12/16 22:45 Dose: Not Given Sennosides (Senokot Tab) 8.6 mg NG BID [facility] Last Admin: 08/13/16 10:28 Dose: 8.6 mg Timolol Maleate (Timoptic 0.5% Ophth Soln) 0 drop OD DAILY [facility] Last Admin: 08/13/16 10:34 Dose: 1 drop - Labs Labs: 08/13/16 06:20 08/13/16 06:20 PT 11.2 SECONDS (9.7-12.2) 07/30/16 23:18 INR 1.0 07/30/16 23:18 APTT 29 SECONDS (21-34) 07/30/16 23:18 - Neurological Exam Neurological Exam: Altered Neuro motor strength exam: Left Upper Extremity: 2/1, Right Upper Extremity: 2/1 , Left Lower Extremity: 2/1, Right Lower Extremity: 2/1 Additional comments: Pupils are reactive to light, brainstem reflexes are intact, withdraws all extremities to pain despite being sedated. Assessment and Plan (1) Subdural hemorrhage following injury Assessment & Plan: Repeat CT head shows that the subdural is stable without any new blood products and reduced air pockets. Neurologically, he is somnolent due to sedation and recent reintubation due to hypoxia. Toxic/metabolic encephalopathy is also a contributing factor. Continue current medications from a neurological perspective. Continue management per the ICU team. Status: Acute
--- NOTE | 2016-08-13 15:06 | CT ---
PROCEDURE: CT HEAD WITHOUT CONTRAST. HISTORY: Worsening mental status with SDH COMPARISON: Comparison made with CT scan of the brain 08/12/2016. TECHNIQUE: Axial computed tomography images were obtained through the head/brain without intravenous contrast. Radiation dose: Total exam DLP = 2546.91 mGy-cm. This CT exam was performed using one or more of the following dose reduction techniques: Automated exposure control, adjustment of the mA and/or kV according to patient size, and/or use of iterative reconstruction technique. FINDINGS: HEMORRHAGE: Current study re- demonstrates some small to medium sized hypodense residual right-sided subdural hematoma . . Small amount of subdural air was seen on prior study has undergone further resorption There is persistent subjacent mass effect with compression of the cerebral sulci and mild compression of the right lateral ventricle. Minimal [id number] midline shift Overlying right-sided craniotomy defect unchanged. Previously noted overlying soft tissue swelling the slightly diminished in size. BRAIN: As above. There appears to be some mild chronic periventricular white matter ischemic changes no change partially empty sella. VENTRICLES: No evidence of obstructive hydrocephalus CALVARIUM: . Unremarkable. PARANASAL SINUSES: Unremarkable as visualized. No significant inflammatory changes. MASTOID AIR CELLS: Unremarkable as visualized. No inflammatory changes. OTHER FINDINGS: Re- demonstrated is a small to medium sized hypodense of residual right-sided subdural hematoma. Minimal [id number] midline shift. Previously noted small amount of subdural air on prior study has undergone further resorption. . Persistent mild subjacent mass effect with compression of cerebral sulci and mild compression of right lateral ventricle. Minimal [id number] midline shift. No evidence of obstructive hydrocephalus. IMPRESSION: Normal CT of the Head.
--- NOTE | 2016-08-13 16:48 | CP.CCUPN ---
CCU Subjective - Physician Review Subjective (Free Text): 08/13/16 16:45 Patient seen and examined at the bedside. No acute events overnight. No acute distress. Nursing staff reports no issues. Re-intubated due to resp distress and SOB. Patient responsive to painful stimuli. Currently afebrile. Today on rounds, the patient's NS rate was decreaesed to 50ml/hr. The patient went for PICC placement (consent obtained over the phone with daughter). The patient right femoral TLC was removed at the bedside. Critical Care Time Spent (in minutes): 90 CCU Objective - Vital Signs / Intake & Output Vital Signs (Last 4 hours): Vital Signs Pulse Resp BP Pulse Ox 08/13/16 16:00 88 23 100 08/13/16 15:24 88 19 103/54 L 98 08/13/16 15:00 94 H 22 96 08/13/16 14:57 98 H 24 119/61 99 08/13/16 14:36 106 H 35 H 177/69 H 99 08/13/16 14:10 97 H 33 H 08/13/16 13:24 80 17 127/62 100 08/13/16 13:00 75 21 100 Intake and Output (Last 8hrs): Intake & Output 08/13/16 08/13/16 08/13/16 06:59 14:59 22:59 Intake Total 1211.4 1200 0 Output Total 475 395 Balance 736.4 805 0 Weight 85.2 kg Intake: IV 100 0 Intake, IV Amount 811.4 750 Left Wrist 800 100 Right Femoral 11.4 550 Right PICC 100 Tube Feeding 400 350 Output: Urine 375 395 Urethral (Devlin) 375 395 Stool 100 Other: # Bowel Movements 1 0 - Physical Exam Physical Exam Limitations: Positive for: Other (intubation) Head: Positive for: Normocephalic, Other (bandages in place and C/D/I, ET Tube in place). Negative for: Atraumatic Pupils: Positive for: PERRL, Other (corneal reflex intact) Pharnyx: Positive for: Other (gag and cough reflexes intact) Neck: Negative for: JVD Respiratory/Chest: Positive for: Clear to Auscultation, Good Air Exchange. Negative for: Respiratory Distress, Accessory Muscle Use, Wheezes, Rales Cardiovascular: Positive for: Regular Rate and Rhythm, Normal S1, S2, Peripheal Pulses Present. Negative for: Murmurs Abdomen: Positive for: Normal Bowel Sounds. Negative for: Tenderness, Distention, Rebound, Guarding Upper Extremity: Positive for: Normal Inspection, NORMAL PULSES, Neurovascularly Intact. Negative for: Cyanosis, Edema Lower Extremity: Positive for: Normal Inspection, NORMAL PULSES, Neurovascularly Intact. Negative for: Edema Neurological: Positive for: Motor Func Grossly Intact, Other (brainstem reflexes intact ) Skin: Positive for: Warm, Dry Psychiatric: Positive for: Alert, Agitated - Medications Active Medications: Active Medications Generic Name Dose Route Start Last Admin Trade Name Freq PRN Reason Stop Dose Admin Acetaminophen 650 mg 08/12/16 10:00 08/13/16 10:24 Tylenol 650mg/20.3ml Solution Ud NG 650 mg Q6 PRN Administration Fever >100.4 F Famotidine 20 mg 08/12/16 10:00 08/13/16 10:28 Pepcid PO 20 mg DAILY GORDO Administration Fluticasone Propionate 1 spr 08/11/16 18:00 08/13/16 10:33 Flonase BO 1 spray BID GORDO Administration Home Med 1 drop 08/07/16 18:00 08/13/16 10:35 Patient's Own Drops OS 1 drop BID GORDO Administration Cefepime HCl 1 gm/ Dextrose 50 mls @ 100 mls/hr 08/12/16 08:30 08/13/16 07:57 IVPB 100 mls/hr Q12H GORDO Administration Vancomycin HCl 1,000 mg/ 250 mls @ 166.6 mls/hr 08/12/16 09:00 08/13/16 09:17 Sodium Chloride IVPB 166.6 mls/hr Q12H GORDO Administration Propofol 1,000 mg in 100 mls @ 2.313 mls/hr 08/12/16 11:52 08/13/16 15:50 Diprivan IV 15 mcg/kg/min .Q24H PRN 6.94 mls/hr TITRATE PER MD ORDER Titration Protocol 5 MCG/KG/MIN Norepinephrine Bitartrate 4 mg 254 mls @ 7.62 mls/hr 08/12/16 15:00 08/12/16 15:00 / Dextrose IV 0.99 mcg/min .Q24H PRN 3.8 mls/hr TITRATE PER MD ORDER Administration Protocol 2 MCG/MIN Sodium Chloride 1,000 mls @ 50 mls/hr 08/13/16 09:26 08/13/16 11:00 Sodium Chloride 0.9% IV 50 mls/hr .Q20H GORDO Administration Insulin Human Regular 0 unit 07/31/16 12:00 08/13/16 13:22 Novolin R SC 1 unit Q6H GORDO Administration Protocol Latanoprost 0 ml 07/31/16 22:00 08/13/16 00:45 Xalatan Opht OD 2.5 ml HS GORDO Administration Senna/Docusate Sodium 1 tab 08/11/16 22:00 08/12/16 22:45 Senokot S 50 Mg-8.6 Mg PO Not Given HS GORDO Sennosides 8.6 mg 08/08/16 00:43 08/13/16 10:28 Senokot Tab NG 8.6 mg BID GORDO Administration Timolol Maleate 0 drop 07/31/16 11:15 08/13/16 10:34 Timoptic 0.5% Ophth Soln OD 1 drop DAILY GORDO Administration - Patient Studies Lab Studies: Microbiology Studies 08/12/16 17:52 Gram Stain - Preliminary Trachasp 08/12/16 06:45 Blood Culture - Preliminary Blood-Venous NO GROWTH AFTER 24 HOURS 08/12/16 06:15 Blood Culture - Preliminary Blood-Venous NO GROWTH AFTER 24 HOURS Lab Studies 08/13/16 08/13/16 08/13/16 Range/Units 12:08 06:20 06:20 WBC 24.0 H (4.8-10.8) K/uL RBC 3.61 L (4.40-5.90) Mil/uL Hgb 9.4 L (12.0-18.0) g/dL Hct 29.1 L (35.0-51.0) % MCV 80.5 (80.0-94.0) fL MCH 26.1 L (27.0-31.0) pg MCHC 32.4 L (33.0-37.0) g/dL RDW 13.7 (11.5-14.5) % Plt Count 383 (130-400) K/uL MPV 8.9 (7.2-11.7) fL Neut % (Auto) 85.0 H (50.0-75.0) % Lymph % (Auto) 8.0 L (20.0-40.0) % [place] % (Auto) 5.4 (0.0-10.0) % Eos % (Auto) 1.3 (0.0-4.0) % Baso % (Auto) 0.3 (0.0-2.0) % Neut # 20.4 H (1.8-7.0) K/uL Lymph # 1.9 (1.0-4.3) K/uL [place] # 1.3 H (0.0-0.8) K/uL Eos # 0.3 (0.0-0.7) K/uL Baso # 0.1 (0.0-0.2) K/uL Neutrophils % (Manual) 85 H (50-75) % Band Neutrophils % 4 H (0-2) % Lymphocytes % (Manual) 8 L (20-40) % Monocytes % (Manual) 3 (0-10) % Platelet Estimate Normal (NORMAL) Large Platelets Present Hypochromasia (manual) Slight Poikilocytosis (manual Slight Anisocytosis (manual) Slight Tear Drop Cells Slight Dixon Cells Slight Puncture Site pCO2 (35-45) mm/Hg pO2 (80-100) mm/Hg HCO3 (21-28) mmol/L ABG pH (7.35-7.45) ABG Total CO2 (22-28) mmol/L ABG O2 Saturation (95-98) % ABG Base Excess (-2.0-3.0) mmol/L ABG Hemoglobin (11.7-17.4) g/dL ABG Carboxyhemoglobin (0.5-1.5) % POC ABG HHb (Measured) (0.0-5.0) % ABG Methemoglobin (0.0-3.0) % David Test A-a O2 Difference mm/Hg Respiratory Index Hgb O2 Saturation (95.0-98.0) % Mechanical Rate FiO2 % Tidal Volume PEEP Sodium 135 (132-148) mmol/L Potassium 3.6 (3.6-5.2) mmol/L Chloride 104 (98-107) mmol/L Carbon Dioxide 21 L (22-30) mmol/L Anion Gap 14 (10-20) BUN 14 (9-20) mg/dL Creatinine 0.6 L (0.8-1.5) MG/DL Est GFR ( Amer) > 60 Est GFR (Non-Af Amer) > 60 POC Glucose (mg/dL) 161 H (65-110) mg/dL Random Glucose 185 H (75-110) mg/dL Calcium 8.0 L (8.6-10.4) mg/dl Phosphorus 2.8 (2.5-4.5) mg/dL Magnesium 2.0 (1.6-2.3) mg/dL Total Bilirubin 0.6 (0.2-1.3) mg/dL AST 35 (17-59) U/L ALT 76 H (21-72) U/L Alkaline Phosphatase 156 H (38-126) U/L Total Protein 6.1 L (6.3-8.3) g/dL Albumin 2.9 L (3.5-5.0) g/dL Globulin 3.3 (2.2-3.9) gm/dL Albumin/Globulin Ratio 0.9 L (1.0-2.1) 08/13/16 08/13/16 08/12/16 Range/Units 05:33 01:29 23:56 WBC (4.8-10.8) K/uL RBC (4.40-5.90) Mil/uL Hgb (12.0-18.0) g/dL Hct (35.0-51.0) % MCV (80.0-94.0) fL MCH (27.0-31.0) pg MCHC (33.0-37.0) g/dL RDW (11.5-14.5) % Plt Count (130-400) K/uL MPV (7.2-11.7) fL Neut % (Auto) (50.0-75.0) % Lymph % (Auto) (20.0-40.0) % [place] % (Auto) (0.0-10.0) % Eos % (Auto) (0.0-4.0) % Baso % (Auto) (0.0-2.0) % Neut # (1.8-7.0) K/uL Lymph # (1.0-4.3) K/uL [place] # (0.0-0.8) K/uL Eos # (0.0-0.7) K/uL Baso # (0.0-0.2) K/uL Neutrophils % (Manual) (50-75) % Band Neutrophils % (0-2) % Lymphocytes % (Manual) (20-40) % Monocytes % (Manual) (0-10) % Platelet Estimate (NORMAL) Large Platelets Hypochromasia (manual) Poikilocytosis (manual Anisocytosis (manual) Tear Drop Cells Dixon Cells Puncture Site L rad pCO2 30 L (35-45) mm/Hg pO2 176 H (80-100) mm/Hg HCO3 20.7 L (21-28) mmol/L ABG pH 7.40 (7.35-7.45) ABG Total CO2 19.5 L (22-28) mmol/L ABG O2 Saturation 99.7 H (95-98) % ABG Base Excess -5.4 L (-2.0-3.0) mmol/L ABG Hemoglobin 9.7 L (11.7-17.4) g/dL ABG Carboxyhemoglobin 1.4 (0.5-1.5) % POC ABG HHb (Measured) 0.3 (0.0-5.0) % ABG Methemoglobin 1.5 (0.0-3.0) % David Test Pos A-a O2 Difference 72.0 mm/Hg Respiratory Index 0.4 Hgb O2 Saturation 96.8 (95.0-98.0) % Mechanical Rate 16 FiO2 40.0 % Tidal Volume 450 PEEP 5 Sodium (132-148) mmol/L Potassium (3.6-5.2) mmol/L Chloride (98-107) mmol/L Carbon Dioxide (22-30) mmol/L Anion Gap (10-20) BUN (9-20) mg/dL Creatinine (0.8-1.5) MG/DL Est GFR ( Amer) Est GFR (Non-Af Amer) POC Glucose (mg/dL) 205 H 161 H (65-110) mg/dL Random Glucose (75-110) mg/dL Calcium (8.6-10.4) mg/dl Phosphorus (2.5-4.5) mg/dL Magnesium (1.6-2.3) mg/dL Total Bilirubin (0.2-1.3) mg/dL AST (17-59) U/L ALT (21-72) U/L Alkaline Phosphatase (38-126) U/L Total Protein (6.3-8.3) g/dL Albumin (3.5-5.0) g/dL Globulin (2.2-3.9) gm/dL Albumin/Globulin Ratio (1.0-2.1) 08/12/16 Range/Units 17:55 WBC (4.8-10.8) K/uL RBC (4.40-5.90) Mil/uL Hgb (12.0-18.0) g/dL Hct (35.0-51.0) % MCV (80.0-94.0) fL MCH (27.0-31.0) pg MCHC (33.0-37.0) g/dL RDW (11.5-14.5) % Plt Count (130-400) K/uL MPV (7.2-11.7) fL Neut % (Auto) (50.0-75.0) % Lymph % (Auto) (20.0-40.0) % [place] % (Auto) (0.0-10.0) % Eos % (Auto) (0.0-4.0) % Baso % (Auto) (0.0-2.0) % Neut # (1.8-7.0) K/uL Lymph # (1.0-4.3) K/uL [place] # (0.0-0.8) K/uL Eos # (0.0-0.7) K/uL Baso # (0.0-0.2) K/uL Neutrophils % (Manual) (50-75) % Band Neutrophils % (0-2) % Lymphocytes % (Manual) (20-40) % Monocytes % (Manual) (0-10) % Platelet Estimate (NORMAL) Large Platelets Hypochromasia (manual) Poikilocytosis (manual Anisocytosis (manual) Tear Drop Cells [place] Cells Puncture Site pCO2 (35-45) mm/Hg pO2 (80-100) mm/Hg HCO3 (21-28) mmol/L ABG pH (7.35-7.45) ABG Total CO2 (22-28) mmol/L ABG O2 Saturation (95-98) % ABG Base Excess (-2.0-3.0) mmol/L ABG Hemoglobin (11.7-17.4) g/dL ABG Carboxyhemoglobin (0.5-1.5) % POC ABG HHb (Measured) (0.0-5.0) % ABG Methemoglobin (0.0-3.0) % David Test A-a O2 Difference mm/Hg Respiratory Index Hgb O2 Saturation (95.0-98.0) % Mechanical Rate FiO2 % Tidal Volume PEEP Sodium (132-148) mmol/L Potassium (3.6-5.2) mmol/L Chloride (98-107) mmol/L Carbon Dioxide (22-30) mmol/L Anion Gap (10-20) BUN (9-20) mg/dL Creatinine (0.8-1.5) MG/DL Est GFR ( Amer) Est GFR (Non-Af Amer) POC Glucose (mg/dL) 143 H (65-110) mg/dL Random Glucose (75-110) mg/dL Calcium (8.6-10.4) mg/dl Phosphorus (2.5-4.5) mg/dL Magnesium (1.6-2.3) mg/dL Total Bilirubin (0.2-1.3) mg/dL AST (17-59) U/L ALT (21-72) U/L Alkaline Phosphatase (38-126) U/L Total Protein (6.3-8.3) g/dL Albumin (3.5-5.0) g/dL Globulin (2.2-3.9) gm/dL Albumin/Globulin Ratio (1.0-2.1) Laboratory Results - last 24 hr 08/12/16 08/12/16 08/13/16 17:55 23:56 01:29 WBC RBC Hgb Hct MCV MCH MCHC RDW Plt Count MPV Neut % (Auto) Lymph % (Auto) [place] % (Auto) Eos % (Auto) Baso % (Auto) Neut # Lymph # [place] # Eos # Baso # Neutrophils % (Manual) Band Neutrophils % Lymphocytes % (Manual) Monocytes % (Manual) Platelet Estimate Large Platelets Hypochromasia (manual) Poikilocytosis (manual Anisocytosis (manual) Tear Drop Cells Dixon Cells Puncture Site L rad pCO2 30 L pO2 176 H HCO3 20.7 L ABG pH 7.40 ABG Total CO2 19.5 L ABG O2 Saturation 99.7 H ABG Base Excess -5.4 L ABG Hemoglobin 9.7 L ABG Carboxyhemoglobin 1.4 POC ABG HHb (Measured) 0.3 ABG Methemoglobin 1.5 David Test Pos A-a O2 Difference 72.0 Respiratory Index 0.4 Hgb O2 Saturation 96.8 Mechanical Rate 16 FiO2 40.0 Tidal Volume 450 PEEP 5 Sodium Potassium Chloride Carbon Dioxide Anion Gap BUN Creatinine Est GFR ( Amer) Est GFR (Non-Af Amer) POC Glucose (mg/dL) 143 H 161 H Random Glucose Calcium Phosphorus Magnesium Total Bilirubin AST ALT Alkaline Phosphatase Total Protein Albumin Globulin Albumin/Globulin Ratio 08/13/16 08/13/16 08/13/16 05:33 06:20 06:20 WBC 24.0 H RBC 3.61 L Hgb 9.4 L Hct 29.1 L MCV 80.5 MCH 26.1 L MCHC 32.4 L RDW 13.7 Plt Count 383 MPV 8.9 Neut % (Auto) 85.0 H Lymph % (Auto) 8.0 L [place] % (Auto) 5.4 Eos % (Auto) 1.3 Baso % (Auto) 0.3 Neut # 20.4 H Lymph # 1.9 [place] # 1.3 H Eos # 0.3 Baso # 0.1 Neutrophils % (Manual) 85 H Band Neutrophils % 4 H Lymphocytes % (Manual) 8 L Monocytes % (Manual) 3 Platelet Estimate Normal Large Platelets Present Hypochromasia (manual) Slight Poikilocytosis (manual Slight Anisocytosis (manual) Slight Tear Drop Cells Slight Dixon Cells Slight Puncture Site pCO2 pO2 HCO3 ABG pH ABG Total CO2 ABG O2 Saturation ABG Base Excess ABG Hemoglobin ABG Carboxyhemoglobin POC ABG HHb (Measured) ABG Methemoglobin David Test A-a O2 Difference Respiratory Index Hgb O2 Saturation Mechanical Rate FiO2 Tidal Volume PEEP Sodium 135 Potassium 3.6 Chloride 104 Carbon Dioxide 21 L Anion Gap 14 BUN 14 Creatinine 0.6 L Est GFR ( Amer) > 60 Est GFR (Non-Af Amer) > 60 POC Glucose (mg/dL) 205 H Random Glucose 185 H Calcium 8.0 L Phosphorus 2.8 Magnesium 2.0 Total Bilirubin 0.6 AST 35 ALT 76 H Alkaline Phosphatase 156 H Total Protein 6.1 L Albumin 2.9 L Globulin 3.3 Albumin/Globulin Ratio 0.9 L 08/13/16 12:08 WBC RBC Hgb Hct MCV MCH MCHC RDW Plt Count MPV Neut % (Auto) Lymph % (Auto) [place] % (Auto) Eos % (Auto) Baso % (Auto) Neut # Lymph # [place] # Eos # Baso # Neutrophils % (Manual) Band Neutrophils % Lymphocytes % (Manual) Monocytes % (Manual) Platelet Estimate Large Platelets Hypochromasia (manual) Poikilocytosis (manual Anisocytosis (manual) Tear Drop Cells [place] Cells Puncture Site pCO2 pO2 HCO3 ABG pH ABG Total CO2 ABG O2 Saturation ABG Base Excess ABG Hemoglobin ABG Carboxyhemoglobin POC ABG HHb (Measured) ABG Methemoglobin David Test A-a O2 Difference Respiratory Index Hgb O2 Saturation Mechanical Rate FiO2 Tidal Volume PEEP Sodium Potassium Chloride Carbon Dioxide Anion Gap BUN Creatinine Est GFR ( Amer) Est GFR (Non-Af Amer) POC Glucose (mg/dL) 161 H Random Glucose Calcium Phosphorus Magnesium Total Bilirubin AST ALT Alkaline Phosphatase Total Protein Albumin Globulin Albumin/Globulin Ratio Fingerstick Blood Sugar Results: 161 Review of Systems - Review of Systems Systems not reviewed;Unavailable: Intubated Critical Care Progress Note - Ventilator Checklist Head of Bed 30 Degrees: Yes PUD Prophalyxis: Yes DVT Prophylaxis: Yes - Vent Settings MODE:: PRVC TIDAL VOLUME:: 450 RESP RATE:: 16 FIO2:: 30 PEEP:: 5 - Extremities/Vascular Does the Patient have a Central Venous Catheter?: Yes Insertion Site: PICC Does the Patient need a Central Venous Catheter?: Yes Does the Patient have a [place] Catheter?: No Does the Patient need a [place] Catheter?: No - Prophylaxis GI Prophylaxis GI: Pepsid - Prophylaxis DVT Prophylaxis DVT: Lovenox, SCDs Assessment/Plan (1) Cerebral hemorrhage Current Visit: Yes Status: Acute (2) Subdural hemorrhage following injury Current Visit: Yes Status: Acute Priority: High - Assessment and Plan (Free Text) Plan: Patient Status: Stable s/p craniotomy. Intubated and Sedated Neuro: -intubated and sedated -brainstem reflexes intact -POD #12 s/p craniotomy with Dr. Bolden -Dr. Bonner following -Repeat CT head shows that the subdural is stable without any new blood products and reduced air pockets Imaging: : 08/13/16 CT Head- Right cerebral convexity subdural, unchanged. Status post right parietal craniotomy. No parenchymal hemorrhage. Minimal midline shift, 1- 2 mm, unchanged. Few bubbles of residual extra-axial air, decreased. No evidence of acute hemorrhage. : 08/12/16 CT Head- Right cerebral convexity subdural, unchanged. Status post right parietal craniotomy. No parenchymal hemorrhage. Minimal midline shift, 1- 2 mm, unchanged. Few bubbles of residual extra-axial air, decreased. No evidence of acute hemorrhage. : 08/10/16 CT Head- Status post removal right-sided subdural drainage catheter. Small residual mixed attenuation subdural collection with diminished amount of subdural air. Persistent mild mass effect with compressive effects on the right cerebral hemisphere as described. Minimal [id number] midline shift. Dysconjugate gaze and/or strabismus. 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 Status post right-sided cataract surgery. : 08/07/16 CT Head- Status post drainage of right subdural hematoma. A drainage catheter is seen in the extra-axial space. There is air and fluid in the sub dural space with an average thickness of 9 mm. No change : 08/06/16 CT Head- Status post surgical intervention, placement of drainage catheter into the extra-axial space at the site of prior subdural hematoma edema , mass effect and midline shift have improved considerably. No new or significant findings identified : 08/04/16 CT Head- Acute extra-axial hemorrhage with blood layering in the extra-axial space. Increase in sulcal effacement, mass effect and midline shift. There is no evidence of herniation. This follows removal of the surgical drain identified previously. : 08/02/16 CT Head- Satisfactory postoperative status following craniotomy, evacuation of large extra-axial fluid collection on the right. Greater details are provided above. No new intra-axial abnormalities. Improved edema, mass effect. No evidence of acute infarction. : 07/30/16 CT Head- Large right acute extra-axial hemorrhage with severe mass effect and midline shift. Cardiovascular: -Off pressors since last night -Hemodynamically stable -PICC Line placed today - Right femoral TLC removed Pulmonary: -Intubated- PRVC : TV- 450mL : rate- 16/min : PEEP- 5cmH2O : FiO2- 30% -Imaging : 08/13/16 CXR- Endotracheal tube terminates approximately 2.1 cm above the astrid. Nasogastric tube extends expected location of the stomach. Right-sided PICC terminates at the expected location of the cavoatrial junction. : 08/13/16 CXR- ET tube tip at tracheal astrid and should be withdrawn several cm. Otherwise no significant change. : 08/12/16 CXR- In situ ETT and NGT as above. Mild bibasilar atelectasis. Probable calcified pleural plaque right kate diaphragm : 08/12/16 CXR- Interval removal ETT. NGT remains in place as above. Mild bibasilar atelectasis. . Questionable pleural base calcification right hemidiaphragm. : 08/10/16 CXR- In situ ETT, tip of which lies approximately 4.28 cm above astrid. NGT is present, the tip of which is coiled in the left upper quadrant of the abdomen likely within the fundus region of the stomach. Low lung volumes with mild crowded bronchovascular markings and mild bibasilar atelectasis. : 08/09/16 CXR- Lines and tubes in stable position. Patchy increased markings at the left lung base suggestive for atelectasis and or infiltrate with questionable trace left pleural effusion. -ABG : 08/13/16- CO2= 30 / O2= 176 / HCO3= 20.7 / pH= 7.40 : 08/12/16- CO2= 29 / O2= 136 / HCO3= 19.5 / pH= 7.38 : 08/12/16- CO2= 30 / O2= 85 / HCO3= 21.7 / pH= 7.42 : 08/11/16- CO2= 30 / O2= 104 / HCO3= 13.0 / pH= 7.45 : 08/10/16- CO2= 38 / O2= 94 / HCO3= 34.1 / pH= 7.57 : 08/09/16- CO2= 29 / O2= 203 / HCO3= 25.3 / pH= 7.51 Gastrointestinal: Tube Feeds (isosource 1.5) 40ml/hr Hematology: -No acute issues Endocrine: -Novolin Sliding Scale Renal: -No issues Musculoskeletal: -No issues Genitourinary: -No issues -[place] Cath in place Infectious Disease: -Leukocytosis -Vancomycin 1g IV q12- Day 2 GI Prophylaxis: Pepcid 20mg PO daily DVT Prophylaxis: SCDs Case Discussed with Dr. Javy Ceballos PGY1 - Date & Time Date: 08/13/16 Time: 16:53
--- NOTE | 2016-08-13 18:50 | CP.PCM.PN ---
Subjective - Date & Time of Evaluation Date of Evaluation: 08/13/16 Time of Evaluation: 18:45 - Subjective Subjective: Medical Attending Note Patient seen, examined and case discussed with ICU. Patient see with , and uncle at bedside. Patient is currently sedated; patient was very agitated after completing CT head earlier today, moving all extremities. Patient is currently on hypothermic blanket. Unable to review ROS secondary to clinically state. Objective - Vital Signs/Intake and Output Vital Signs (last 24 hours): Temp Pulse Resp BP Pulse Ox 103.1 F H 93 H 21 129/56 L 100 08/13/16 18:15 08/13/16 17:00 08/13/16 17:00 08/13/16 16:24 08/13/16 17:00 Intake and Output: 08/13/16 08/13/16 06:59 18:59 Intake Total 1726.6 1500 Output Total 670 665 Balance 1056.6 835 - Medications Medications: Current Medications Acetaminophen (Tylenol 650mg/20.3ml Solution Ud) 650 mg NG Q6 PRN PRN Reason: Fever >100.4 F Last Admin: 08/13/16 18:15 Dose: 650 mg Famotidine (Pepcid) 20 mg PO DAILY [facility] Last Admin: 08/13/16 10:28 Dose: 20 mg Fluticasone Propionate (Flonase) 1 spr BO BID [facility] Last Admin: 08/13/16 18:25 Dose: 1 spray Home Med (Patient's Own Drops) 1 drop OS BID [facility] Last Admin: 08/13/16 18:26 Dose: 1 drop Cefepime HCl 1 gm/ Dextrose 50 mls @ 100 mls/hr IVPB Q12H [facility] Last Admin: 08/13/16 07:57 Dose: 100 mls/hr Vancomycin HCl 1,000 mg/ (Sodium Chloride) 250 mls @ 166.6 mls/hr IVPB Q12H [facility] Last Admin: 08/13/16 09:17 Dose: 166.6 mls/hr Propofol (Diprivan) 1,000 mg in 100 mls @ 2.313 mls/hr IV .Q24H PRN; Protocol; 5 MCG/KG/MIN PRN Reason: TITRATE PER MD ORDER Last Titration: 08/13/16 18:14 Dose: 20 mcg/kg/min, 9.253 mls/hr Sodium Chloride (Sodium Chloride 0.9%) 1,000 mls @ 50 mls/hr IV .Q20H [facility] Last Admin: 08/13/16 11:00 Dose: 50 mls/hr Insulin Human Regular (Novolin R) 0 unit SC Q6H [facility] PRN Reason: Protocol Last Admin: 08/13/16 18:19 Dose: 2 unit Latanoprost (Xalatan Opht) 0 ml OD [facility] Last Admin: 08/13/16 00:45 Dose: 2.5 ml Senna/Docusate Sodium (Senokot S 50 Mg-8.6 Mg) 1 tab PO [facility] Last Admin: 08/12/16 22:45 Dose: Not Given Sennosides (Senokot Tab) 8.6 mg NG BID [facility] Last Admin: 08/13/16 18:20 Dose: 8.6 mg Timolol Maleate (Timoptic 0.5% Ophth Soln) 0 drop OD DAILY [facility] Last Admin: 08/13/16 10:34 Dose: 1 drop - Labs Labs: 08/13/16 06:20 08/13/16 06:20 PT 11.2 SECONDS (9.7-12.2) 07/30/16 23:18 INR 1.0 07/30/16 23:18 APTT 29 SECONDS (21-34) 07/30/16 23:18 - Constitutional Appears: Agitated, Confused, Chronically Ill - Head Exam Additional comments: Dressing over right side of head: intact Intubated NGT Devlin SCDS b/l PICC right extremity - Eye Exam Eye Exam: PERRL (right eye, left eye adducted). absent: Scleral icterus - ENT Exam ENT Exam: Mucous Membranes Dry - Respiratory Exam Respiratory Exam: NORMAL BREATHING PATTERN Additional comments: on vent and intubated - Cardiovascular Exam Cardiovascular Exam: REGULAR RHYTHM, +S1, +S2 - GI/Abdominal Exam GI & Abdominal Exam: Soft, Normal Bowel Sounds. absent: Distended, Firm, Guarding, Rigid, Tenderness, Rebound - Extremities Exam Extremities Exam: absent: Pedal Edema, Tenderness - Neurological Exam Neuro motor strength exam: Left Upper Extremity: 2/1, Right Upper Extremity: 2/1 , Left Lower Extremity: 2/1, Right Lower Extremity: 2/1 - Skin Skin Exam: Dry, Intact, Normal Color, Warm Assessment and Plan (1) Cerebral hemorrhage Status: Acute (2) Hypertension Status: Chronic (3) Diabetes Status: Chronic (4) Leukocytosis Status: Acute (5) Urinary tract infection Status: Acute (6) Prophylactic measure Status: Acute - Assessment and Plan (Free Text) Assessment: (1) Cerebral hemorrhage Assessment & Plan: * Critical care: help appreciated * Neurosurgery: Dr. Bolden on board-->help appreciated * Neurology: Dr Bonner on board-->help appreciated * Head CT (07/30/16): CT Head without contrast: 1. The left orbit appears to be rotated 90 degrees to the right while the right orbit appears to be oriented normally. 2. 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 This results in severe mass effect on the underlying brain, including 1.4 cm of leftward midline shift and compression of the right lateral ventricle. Asymmetric enlargement of the right temporal horn suggestive of early entrapment. * Head CT (08/02/16): satisfactory postoperative status following craniotomy, evacuation of large extra-axial fluid collection on the right. No new intra- axial abnormalities. Improved edema, mass effect. No evidence of acute infarction. * Head CT (08/04/16) showed acute extra-axial hemorrhage with blood layering in the extra-axial space. Increase in sulcal effacement, mass effect and midline shift. There is no evidence of herniation. This follows removal of the surgical drain identified previously. * Head CT (08/06/16): status post surgical intervention, placement of drainage catheter into the extra-axial space at the site prior subdural hematoma edema, mass effect and midline shift have improved considerably. No new or significant findings identified. * Head CT (08/07/16): status post drainage of right subdural hematoma. Drainage catheter is nora in the extra axial space. Air and fluid in the usbdral space with an average thickeness of 9mm * Head CT (08/10/16): status post removal right sided subdural drainage catheter. Small residual mixed attenuation subdural collection with diminished amount of subdural air. Persistent mild mass effect with compressive effects on the right cerebral hemisphere. Minial right to left midline shift. Dysconjugate gaze and/ or strabismus. 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 status post right sided cataract surgery * Head CT (08/13/16): redemonstrated to small to medium sized hypodense of residual right sided subdural hematoma. Minmindal right to left midline shift. Previously noted small amount of subdural air on prior study has undegone further resoprtion. Persistent mild subjacent mass effect with compression of cerebral sulci and mild compression of right lateral ventricle. No evidence of obstructive hydrocephalus. * POD 12: s/p [place] hole and evacuation of subdural hemorrhage with Dang and David drain * POD 8 s/p right frontotemporal craniotomy; evacuation of acute subdural drain present * Removal of drain on 08/03/16 * Keppra 500mg IVPB Q 12hours for seizure prophylaxis * Per neurosurgery, prefers patient off anticoagulation * continue Neurochecks * off sedation; intubated on 08/12/16, on NS 50cc/hr Status: Acute (2) Hypertension Assessment & Plan: * NS 50c cc/hr * Monitor vitals signs Status: Chronic (3) Diabetes Assessment & Plan: * [id number]: 5.9 * Controlled * Accuchecks Q6 hours * Regular insulin sliding scale subq Q 6hours * on feedings Status: Chronic (4) Leukocytosis Assessment & Plan: * Blood cultures X2, urine culture (08/12/16) * Elevated white count in 31-->24-->24 * Started on Cefepime 1 gram Q 12hour and Vancomycin 1g IV Q 12hours * Febrile, leukocytosis * UA: pyuria, hematuria, +esterase; urine culture: gram negative bebo pending speciation * Fever: on hypothermic blanket (5) Prophylactic measure Assessment & Plan: * Neurosurgery prefers patient off anticoagulation per prior discussion with ICU * NGT tube * Pepcid 20mg PO daily * No benzos * Seizure prophylaxis * Intubated * On sedation * PICC line Status: Acute
[2016-08-13] MEDS: Docusate-Senna 50 mg-8.6 mg Tab PO SCH (21:43)
[2016-08-14] MEDS: Acetaminophen 650mg/20.3ml solution UD NG PRN ×5 (00:02→23:17)
[2016-08-14] MEDS: Propofol 10 mg/ml 1,000 MG/100 ML VIAL IV PRN ×2 (00:54→16:02)
[2016-08-14 05:46] LABS: ABG ALLEN TEST POS; ABG MECHANICAL RATE 16; ATERIAL BLOOD GAS PEEP 5; DRAW SITE LR
[2016-08-14] MEDS: (Novolin R) Insulin Human Regular 100 units/ml vial SC SCH ×4 (06:19→18:14)
[2016-08-14] MEDS: Sodium Chloride 0.9% 1,000 ML IV SCH ×2 (06:20→17:19)
[2016-08-14 06:47] LABS: BASO % 0.3 % (0.0-2.0); EOS # 0.4 K/uL (0.0-0.7); EOS % 2.5 % (0.0-4.0); HEMATOCRIT 28.5 % (35.0-51.0); LYMPH # 1.4 K/uL (1.0-4.3); LYMPH % 9.6 % (20.0-40.0); MEAN CELL VOLUME 79.4 fL (80.0-94.0); MEAN CORPUSCULAR HEMOGLOBIN 26.4 pg (27.0-31.0); MEAN CORPUSCULAR HGB CONC 33.2 g/dL (33.0-37.0); MEAN PLATELET VOLUME 9.2 fL (7.2-11.7); MONO # 0.9 K/uL (0.0-0.8); MONO % 6.4 % (0.0-10.0); NRBC % 0.1 % (0.0-2.0); PLATELET COUNT 387 K/uL (130-400); RED CELL DISTRIBUTION WIDTH 13.9 % (11.5-14.5); WHITE BLOOD COUNT 14.6 K/uL (4.8-10.8)
[2016-08-14 06:53] LABS: INR 1.1
[2016-08-14 06:58] LABS: CHLORIDE 101 mmol/L (98-107); SODIUM 135 mmol/L (132-148)
[2016-08-14 06:59] LABS: POTASSIUM 3.8 mmol/L (3.6-5.2)
[2016-08-14 07:00] LABS: GFR AFRICAN-AMERICAN > 60
[2016-08-14 07:01] LABS: ALB/GLOB RATIO 0.9 (1.0-2.1); ALKALINE PHOSPHATASE 193 U/L (38-126); ALT/SGPT 69 U/L (21-72); AST/SGOT 41 U/L (17-59); BILIRUBIN,TOTAL 0.5 mg/dL (0.2-1.3); BLOOD UREA NITROGEN 13 mg/dL (9-20); CARBON DIOXIDE 23 mmol/L (22-30); GLUCOSE,RANDOM 137 mg/dL (75-110); PHOSPHOROUS 2.6 mg/dL (2.5-4.5); TOTAL PROTEIN 5.9 g/dL (6.3-8.3)
[2016-08-14 07:02] LABS: CALCIUM 8.2 mg/dl (8.6-10.4); MAGNESIUM 1.9 mg/dL (1.6-2.3)
--- NOTE | 2016-08-14 08:04 | RAD ---
Chest x-ray single frontal view History: ETT evaluation. Comparison: 08/13/2016 Findings: Lines and tubes in stable position. Mild venous congestion. Probable external device projecting over the left lower kate thorax and right lateral upper kate thorax. Mild cardiomegaly. Impression: Mild venous congestion.
[2016-08-14 08:08] LABS: EOSINOPHIL 4 % (0-4); NEUTROPHIL 81 % (50-75); TOTAL CELLS COUNTED 100
[2016-08-14 08:10] LABS: LARGE PLATELETS PRESENT
[2016-08-14] MEDS ORDERED: Magnesium Sulfate 1 gm in D5W 1 GM/100 ML BAG IVPB ONE (09:00)
[2016-08-14] MEDS: Fluticasone Nasal 50 mcg/Spray NAS SCH ×2 (09:10→17:21)
[2016-08-14] MEDS: [UNRECOGNIZED DRUG - OTHER] OS SCH ×2 (09:11→17:22)
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
--- NOTE | 2016-08-14 15:28 | CP.PCM.PN ---
Subjective - Date & Time of Evaluation Date of Evaluation: 08/14/16 Time of Evaluation: 13:10 - Subjective Subjective: Mr. Renee Lopez was seen and examined in the ICU with his at bedside. He was more active today, but still not following commands briskly. I discussed starting stimulants to increase his level of involvement so that he may start physical and occupational therapy. Objective - Vital Signs/Intake and Output Vital Signs (last 24 hours): Temp Pulse Resp BP Pulse Ox 102 F H 95 H 19 123/51 L 100 08/14/16 12:00 08/14/16 13:00 08/14/16 13:00 08/14/16 12:24 08/14/16 13:00 Intake and Output: 08/14/16 08/14/16 06:59 18:59 Intake Total 1519.2 1161.6 Output Total 565 400 Balance 954.2 761.6 - Medications Medications: Current Medications Acetaminophen (Tylenol 650mg/20.3ml Solution Ud) 650 mg NG Q6 PRN PRN Reason: Fever >100.4 F Last Admin: 08/14/16 11:40 Dose: 650 mg Amantadine HCl (Amantadine 100 Mg Cap) 100 mg PO BID [facility] Famotidine (Pepcid) 20 mg PO DAILY [facility] Last Admin: 08/14/16 09:09 Dose: 20 mg Fluticasone Propionate (Flonase) 1 spr BO BID [facility] Last Admin: 08/14/16 09:10 Dose: 1 spray Home Med (Patient's Own Drops) 1 drop OS BID [facility] Last Admin: 08/14/16 09:11 Dose: 1 drop Vancomycin HCl 1,000 mg/ (Sodium Chloride) 250 mls @ 166.6 mls/hr IVPB Q12H [facility] Last Admin: 08/14/16 08:26 Dose: 166.6 mls/hr Propofol (Diprivan) 1,000 mg in 100 mls @ 2.313 mls/hr IV .Q24H PRN; Protocol; 5 MCG/KG/MIN PRN Reason: TITRATE PER MD ORDER Last Admin: 08/14/16 00:54 Dose: 10 mcg/kg/min, 4.627 mls/hr Sodium Chloride (Sodium Chloride 0.9%) 1,000 mls @ 50 mls/hr IV .Q20H [facility] Last Admin: 08/14/16 06:20 Dose: 50 mls/hr Imipenem/Cilastatin Sodium 500 (mg/ Sodium Chloride) 100 mls @ 100 mls/hr IVPB Q6H [facility] Last Admin: 08/14/16 13:03 Dose: 100 mls/hr Insulin Human Regular (Novolin R) 0 unit SC Q6H [facility] PRN Reason: Protocol Last Admin: 08/14/16 11:39 Dose: 4 unit Latanoprost (Xalatan Opht) 0 ml OD [facility] Last Admin: 08/13/16 21:42 Dose: 2.5 ml Methylphenidate HCl (Ritalin) 5 mg PO QAM [facility] Senna/Docusate Sodium (Senokot S 50 Mg-8.6 Mg) 1 tab PO [facility] Last Admin: 08/13/16 21:43 Dose: 1 tab Sennosides (Senokot Tab) 8.6 mg NG BID [facility] Last Admin: 08/14/16 09:12 Dose: 8.6 mg Timolol Maleate (Timoptic 0.5% Oph Soln) 0 drop OD DAILY [facility] Last Admin: 08/14/16 09:11 Dose: 1 drop - Labs Labs: 08/14/16 06:25 08/14/16 06:26 PT 12.9 SECONDS (9.7-12.2) H 08/14/16 06:28 INR 1.1 08/14/16 06:28 APTT 30 SECONDS (21-34) 08/14/16 06:28 - Neurological Exam Neurological Exam: Altered Neuro motor strength exam: Left Upper Extremity: 3, Right Upper Extremity: 3, Left Lower Extremity: 3, Right Lower Extremity: 3 Additional comments: 6th and partial 3rd nerve palsy on the left. Moves all extremities to painful stimulus and spontaneously. Opens eyes to command, follows some simple commands intermittently. Assessment and Plan (1) Subdural hemorrhage following injury Assessment & Plan: Some clinical improvement today compared with yesterday. He is more alert and somewhat more interactive. There is a plan for trach and peg. I recommend starting amantadine 100 mg BID and Ritalin at 5 mg daily. DVT Px is recommended. PT/OT. Avoid compression of craniotomy site. Keep head of bed at 30 degrees and above. Treat underlying infections and keep hydrated with NS at 100 mL/hr. Status: Acute
--- NOTE | 2016-08-14 16:14 | CP.CCUPN ---
<Daron Ceballos - Last Filed: 08/14/16 16:31> CCU Subjective - Physician Review Subjective (Free Text): 08/13/16 16:45 Patient seen and examined at the bedside. No acute events overnight. No acute distress. Nursing staff reports no issues. Re-intubated due to resp distress and SOB. Patient responsive to painful stimuli. Currently afebrile. Today on rounds, the patient's NS rate was decreaesed to 50ml/hr. The patient went for PICC placement (consent obtained over the phone with daughter). The patient right femoral TLC was removed at the bedside. 08/14/16 16:11 Patient seen and examined at the bedside. No acute events overnight. No acute distress. Nursing staff reports no issues. Intubated due to resp distress and SOB, PRVC TV 450, Rate 16, PEEP 5, FiO2 30%. Patient responsive to painful stimuli. Currently afebrile. Today on rounds, patient was started on amantadine and ritalin per Dr. Bonner's request. Patient was evaluated by GI and general surgery teams for PEG tube placement and trach respectively. The patient's urine culture returned ESBL resistant to cefepime. Primaxin was started. The patient's magnesium was also replaced. Critical Care Time Spent (in minutes): 60 CCU Objective - Vital Signs / Intake & Output Vital Signs (Last 4 hours): Vital Signs Pulse Resp BP Pulse Ox 08/14/16 15:24 96 H 20 161/80 H 100 08/14/16 15:00 91 H 17 100 08/14/16 14:24 92 H 18 148/68 100 08/14/16 14:00 96 H 100 08/14/16 13:24 94 H 17 114/58 L 100 08/14/16 13:00 95 H 19 100 08/14/16 12:24 97 H 20 123/51 L 42 L Intake and Output (Last 8hrs): Intake & Output 08/14/16 08/14/16 08/14/16 06:59 14:59 22:59 Intake Total 941.6 1161.6 205.2 Output Total 370 400 0 Balance 571.6 761.6 205.2 Weight 83.915 kg Intake: IV 100 100 Intake, IV Amount 441.6 641.6 55.2 Right PICC 400 600 50 Right Proximal Port PICC 41.6 41.6 5.2 Tube Feeding 400 400 50 Other 120 Output: Urine 370 400 0 Condom 400 0 Urethral (Devlin) 370 Other: # Bowel Movements 0 0 - Physical Exam Head: Positive for: Normocephalic, Other (bandages in place and C/D/I, ET Tube in place). 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 Negative for: EOMI Conjunctiva: Positive for: Normal Pharnyx: Positive for: Other (gag and cough reflexes intact) Neck: Negative for: JVD Respiratory/Chest: Positive for: Clear to Auscultation, Good Air Exchange. Negative for: Respiratory Distress, Accessory Muscle Use, Wheezes, Rales Cardiovascular: Positive for: Regular Rate and Rhythm, Normal S1, S2, Peripheal Pulses Present. Negative for: Murmurs Abdomen: Positive for: Normal Bowel Sounds. Negative for: Tenderness, Distention, Rebound, Guarding Upper Extremity: Positive for: Normal Inspection, NORMAL PULSES, Neurovascularly Intact. Negative for: Cyanosis, Edema Lower Extremity: Positive for: Normal Inspection, NORMAL PULSES, Neurovascularly Intact. Negative for: Edema Neurological: Positive for: Motor Func Grossly Intact, Other (brainstem reflexes intact ) Skin: Positive for: Warm, Dry Psychiatric: Positive for: Alert, Agitated - Medications Active Medications: Active Medications Generic Name Dose Route Start Last Admin Trade Name Freq PRN Reason Stop Dose Admin Acetaminophen 650 mg 08/12/16 10:00 08/14/16 11:40 Tylenol 650mg/20.3ml Solution Ud NG 650 mg Q6 PRN Administration Fever >100.4 F Amantadine HCl 100 mg 08/14/16 18:00 Amantadine 100 Mg Cap PO BID GORDO Famotidine 20 mg 08/12/16 10:00 08/14/16 09:09 Pepcid PO 20 mg DAILY GORDO Administration Fluticasone Propionate 1 spr 08/11/16 18:00 08/14/16 09:10 Flonase BO 1 spray BID GORDO Administration Home Med 1 drop 08/07/16 18:00 08/14/16 09:11 Patient's Own Drops OS 1 drop BID GORDO Administration Vancomycin HCl 1,000 mg/ 250 mls @ 166.6 mls/hr 08/12/16 09:00 08/14/16 08:26 Sodium Chloride IVPB 166.6 mls/hr Q12H GORDO Administration Propofol 1,000 mg in 100 mls @ 2.313 mls/hr 08/12/16 11:52 08/14/16 16:02 Diprivan IV 10 mcg/kg/min .Q24H PRN 4.627 mls/hr TITRATE PER MD ORDER Administration Protocol 5 MCG/KG/MIN Sodium Chloride 1,000 mls @ 50 mls/hr 08/13/16 09:26 08/14/16 06:20 Sodium Chloride 0.9% IV 50 mls/hr .Q20H GORDO Administration Imipenem/Cilastatin Sodium 500 100 mls @ 100 mls/hr 08/14/16 12:00 08/14/16 13:03 mg/ Sodium Chloride IVPB 100 mls/hr Q6H GORDO Administration Insulin Human Regular 0 unit 07/31/16 12:00 08/14/16 11:39 Novolin R SC 4 unit Q6H GORDO Administration Protocol Latanoprost 0 ml 07/31/16 22:00 08/13/16 21:42 Xalatan Opht OD 2.5 ml HS GORDO Administration Methylphenidate HCl 5 mg 08/15/16 10:00 Ritalin PO QAM GORDO Senna/Docusate Sodium 1 tab 08/11/16 22:00 08/13/16 21:43 Senokot S 50 Mg-8.6 Mg PO 1 tab HS GORDO Administration Sennosides 8.6 mg 08/08/16 00:43 08/14/16 09:12 Senokot Tab NG 8.6 mg BID GORDO Administration Timolol Maleate 0 drop 07/31/16 11:15 08/14/16 09:11 Timoptic 0.5% Ophth Soln OD 1 drop DAILY GORDO Administration - Patient Studies Lab Studies: Microbiology Studies 08/12/16 Unknown Urine Culture - Final Urine,Catheterized Escherichia Coli 08/12/16 06:45 Blood Culture - Preliminary Blood-Venous NO GROWTH AFTER 48 HOURS 08/12/16 06:15 Blood Culture - Preliminary Blood-Venous NO GROWTH AFTER 48 HOURS 08/12/16 17:52 Gram Stain - Preliminary Trachasp Lab Studies 08/14/16 08/14/16 08/14/16 Range/Units 11:24 06:28 06:26 WBC (4.8-10.8) K/uL RBC (4.40-5.90) Mil/uL Hgb (12.0-18.0) g/dL Hct (35.0-51.0) % MCV (80.0-94.0) fL MCH (27.0-31.0) pg MCHC (33.0-37.0) g/dL RDW (11.5-14.5) % Plt Count (130-400) K/uL MPV (7.2-11.7) fL Neut % (Auto) (50.0-75.0) % Lymph % (Auto) (20.0-40.0) % [place] % (Auto) (0.0-10.0) % Eos % (Auto) (0.0-4.0) % Baso % (Auto) (0.0-2.0) % Neut # (1.8-7.0) K/uL Lymph # (1.0-4.3) K/uL [place] # (0.0-0.8) K/uL Eos # (0.0-0.7) K/uL Baso # (0.0-0.2) K/uL Neutrophils % (Manual) (50-75) % Lymphocytes % (Manual) (20-40) % Monocytes % (Manual) (0-10) % Eosinophils % (Manual) (0-4) % Platelet Estimate (NORMAL) Large Platelets Hypochromasia (manual) Poikilocytosis (manual Anisocytosis (manual) Microcytosis (manual) Target Cells Kyler Cells PT 12.9 H (9.7-12.2) SECONDS INR 1.1 APTT 30 (21-34) SECONDS Puncture Site pCO2 (35-45) mm/Hg pO2 (80-100) mm/Hg HCO3 (21-28) mmol/L ABG pH (7.35-7.45) ABG Total CO2 (22-28) mmol/L ABG O2 Saturation (95-98) % ABG Base Excess (-2.0-3.0) mmol/L David Test ABG Potassium (3.6-5.2) mmol/L A-a O2 Difference mm/Hg Respiratory Index Sodium 135 (132-148) mmol/l Chloride 101 (98-107) mmol/L Glucose (75-110) mg/dl Lactate (0.7-2.1) mmol/L Mechanical Rate FiO2 % Tidal Volume PEEP Potassium 3.8 (3.6-5.2) mmol/L Carbon Dioxide 23 (22-30) mmol/L Anion Gap 15 (10-20) BUN 13 (9-20) mg/dL Creatinine 0.5 L (0.8-1.5) MG/DL Est GFR ( Amer) > 60 Est GFR (Non-Af Amer) > 60 POC Glucose (mg/dL) 237 H (65-110) mg/dL Random Glucose 137 H (75-110) mg/dL Calcium 8.2 L (8.6-10.4) mg/dl Phosphorus 2.6 (2.5-4.5) mg/dL Magnesium 1.9 (1.6-2.3) mg/dL Total Bilirubin 0.5 (0.2-1.3) mg/dL AST 41 (17-59) U/L ALT 69 (21-72) U/L Alkaline Phosphatase 193 H D (38-126) U/L Total Protein 5.9 L (6.3-8.3) g/dL Albumin 2.8 L (3.5-5.0) g/dL Globulin 3.2 (2.2-3.9) gm/dL Albumin/Globulin Ratio 0.9 L (1.0-2.1) Arterial Blood Potassium (3.6-5.2) mmol/L Vancomycin Trough (5.0-10.0) ug/mL 08/14/16 08/14/16 08/14/16 Range/Units 06:26 06:25 06:00 WBC 14.6 H (4.8-10.8) K/uL RBC 3.59 L (4.40-5.90) Mil/uL Hgb 9.5 L (12.0-18.0) g/dL Hct 28.5 L (35.0-51.0) % MCV 79.4 L (80.0-94.0) fL MCH 26.4 L (27.0-31.0) pg MCHC 33.2 (33.0-37.0) g/dL RDW 13.9 (11.5-14.5) % Plt Count 387 (130-400) K/uL MPV 9.2 (7.2-11.7) fL Neut % (Auto) 81.2 H (50.0-75.0) % Lymph % (Auto) 9.6 L (20.0-40.0) % [place] % (Auto) 6.4 (0.0-10.0) % Eos % (Auto) 2.5 (0.0-4.0) % Baso % (Auto) 0.3 (0.0-2.0) % Neut # 11.8 H (1.8-7.0) K/uL Lymph # 1.4 (1.0-4.3) K/uL [place] # 0.9 H (0.0-0.8) K/uL Eos # 0.4 (0.0-0.7) K/uL Baso # 0.0 (0.0-0.2) K/uL Neutrophils % (Manual) 81 H (50-75) % Lymphocytes % (Manual) 9 L (20-40) % Monocytes % (Manual) 6 (0-10) % Eosinophils % (Manual) 4 (0-4) % Platelet Estimate Normal (NORMAL) Large Platelets Present Hypochromasia (manual) Slight Poikilocytosis (manual Slight Anisocytosis (manual) Slight Microcytosis (manual) Slight Target Cells Slight Kyler Cells Slight PT (9.7-12.2) SECONDS INR APTT (21-34) SECONDS Puncture Site pCO2 (35-45) mm/Hg pO2 (80-100) mm/Hg HCO3 (21-28) mmol/L ABG pH (7.35-7.45) ABG Total CO2 (22-28) mmol/L ABG O2 Saturation (95-98) % ABG Base Excess (-2.0-3.0) mmol/L David Test ABG Potassium (3.6-5.2) mmol/L A-a O2 Difference mm/Hg Respiratory Index Sodium (132-148) mmol/l Chloride (98-107) mmol/L Glucose (75-110) mg/dl Lactate (0.7-2.1) mmol/L Mechanical Rate FiO2 % Tidal Volume PEEP Potassium (3.6-5.2) mmol/L Carbon Dioxide (22-30) mmol/L Anion Gap (10-20) BUN (9-20) mg/dL Creatinine (0.8-1.5) MG/DL Est GFR ( Amer) Est GFR (Non-Af Amer) POC Glucose (mg/dL) 161 H (65-110) mg/dL Random Glucose (75-110) mg/dL Calcium (8.6-10.4) mg/dl Phosphorus (2.5-4.5) mg/dL Magnesium (1.6-2.3) mg/dL Total Bilirubin (0.2-1.3) mg/dL AST (17-59) U/L ALT (21-72) U/L Alkaline Phosphatase (38-126) U/L Total Protein (6.3-8.3) g/dL Albumin (3.5-5.0) g/dL Globulin (2.2-3.9) gm/dL Albumin/Globulin Ratio (1.0-2.1) Arterial Blood Potassium (3.6-5.2) mmol/L Vancomycin Trough 10.0 (5.0-10.0) ug/mL 08/14/16 08/13/16 08/13/16 Range/Units 05:29 23:38 18:04 WBC (4.8-10.8) K/uL RBC (4.40-5.90) Mil/uL Hgb (12.0-18.0) g/dL Hct (35.0-51.0) % MCV (80.0-94.0) fL MCH (27.0-31.0) pg MCHC (33.0-37.0) g/dL RDW (11.5-14.5) % Plt Count (130-400) K/uL MPV (7.2-11.7) fL Neut % (Auto) (50.0-75.0) % Lymph % (Auto) (20.0-40.0) % [place] % (Auto) (0.0-10.0) % Eos % (Auto) (0.0-4.0) % Baso % (Auto) (0.0-2.0) % Neut # (1.8-7.0) K/uL Lymph # (1.0-4.3) K/uL [place] # (0.0-0.8) K/uL Eos # (0.0-0.7) K/uL Baso # (0.0-0.2) K/uL Neutrophils % (Manual) (50-75) % Lymphocytes % (Manual) (20-40) % Monocytes % (Manual) (0-10) % Eosinophils % (Manual) (0-4) % Platelet Estimate (NORMAL) Large Platelets Hypochromasia (manual) Poikilocytosis (manual Anisocytosis (manual) Microcytosis (manual) Target Cells Kyler Cells PT (9.7-12.2) SECONDS INR APTT (21-34) SECONDS Puncture Site Lr pCO2 30 L (35-45) mm/Hg pO2 105 H (80-100) mm/Hg HCO3 24.3 (21-28) mmol/L ABG pH 7.47 H (7.35-7.45) ABG Total CO2 22.7 (22-28) mmol/L ABG O2 Saturation 99.7 H (95-98) % ABG Base Excess -0.9 (-2.0-3.0) mmol/L David Test Pos ABG Potassium 3.5 L (3.6-5.2) mmol/L A-a O2 Difference 71.0 mm/Hg Respiratory Index 0.7 Sodium 138.0 (132-148) mmol/l Chloride 112.0 H (98-107) mmol/L Glucose 135 H (75-110) mg/dl Lactate 1.8 (0.7-2.1) mmol/L Mechanical Rate 16 FiO2 30.0 % Tidal Volume 450 PEEP 5 Potassium (3.6-5.2) mmol/L Carbon Dioxide (22-30) mmol/L Anion Gap (10-20) BUN (9-20) mg/dL Creatinine (0.8-1.5) MG/DL Est GFR ( Amer) Est GFR (Non-Af Amer) POC Glucose (mg/dL) 113 H 165 H (65-110) mg/dL Random Glucose (75-110) mg/dL Calcium (8.6-10.4) mg/dl Phosphorus (2.5-4.5) mg/dL Magnesium (1.6-2.3) mg/dL Total Bilirubin (0.2-1.3) mg/dL AST (17-59) U/L ALT (21-72) U/L Alkaline Phosphatase (38-126) U/L Total Protein (6.3-8.3) g/dL Albumin (3.5-5.0) g/dL Globulin (2.2-3.9) gm/dL Albumin/Globulin Ratio (1.0-2.1) Arterial Blood Potassium 3.5 L (3.6-5.2) mmol/L Vancomycin Trough (5.0-10.0) ug/mL Laboratory Results - last 24 hr 08/13/16 08/13/16 08/14/16 18:04 23:38 05:29 WBC RBC Hgb Hct MCV MCH MCHC RDW Plt Count MPV Neut % (Auto) Lymph % (Auto) [place] % (Auto) Eos % (Auto) Baso % (Auto) Neut # Lymph # [place] # Eos # Baso # Neutrophils % (Manual) Lymphocytes % (Manual) Monocytes % (Manual) Eosinophils % (Manual) Platelet Estimate Large Platelets Hypochromasia (manual) Poikilocytosis (manual Anisocytosis (manual) Microcytosis (manual) Target Cells Trent Cells PT INR APTT Puncture Site Lr pCO2 30 L pO2 105 H HCO3 24.3 ABG pH 7.47 H ABG Total CO2 22.7 ABG O2 Saturation 99.7 H ABG Base Excess -0.9 David Test Pos ABG Potassium 3.5 L A-a O2 Difference 71.0 Respiratory Index 0.7 Sodium 138.0 Chloride 112.0 H Glucose 135 H Lactate 1.8 Mechanical Rate 16 FiO2 30.0 Tidal Volume 450 PEEP 5 Potassium Carbon Dioxide Anion Gap BUN Creatinine Est GFR ( Amer) Est GFR (Non-Af Amer) POC Glucose (mg/dL) 165 H 113 H Random Glucose Calcium Phosphorus Magnesium Total Bilirubin AST ALT Alkaline Phosphatase Total Protein Albumin Globulin Albumin/Globulin Ratio Arterial Blood Potassium 3.5 L Vancomycin Trough 08/14/16 08/14/16 08/14/16 06:00 06:25 06:26 WBC 14.6 H RBC 3.59 L Hgb 9.5 L Hct 28.5 L MCV 79.4 L MCH 26.4 L MCHC 33.2 RDW 13.9 Plt Count 387 MPV 9.2 Neut % (Auto) 81.2 H Lymph % (Auto) 9.6 L [place] % (Auto) 6.4 Eos % (Auto) 2.5 Baso % (Auto) 0.3 Neut # 11.8 H Lymph # 1.4 [place] # 0.9 H Eos # 0.4 Baso # 0.0 Neutrophils % (Manual) 81 H Lymphocytes % (Manual) 9 L Monocytes % (Manual) 6 Eosinophils % (Manual) 4 Platelet Estimate Normal Large Platelets Present Hypochromasia (manual) Slight Poikilocytosis (manual Slight Anisocytosis (manual) Slight Microcytosis (manual) Slight Target Cells Slight Trent Cells Slight PT INR APTT Puncture Site pCO2 pO2 HCO3 ABG pH ABG Total CO2 ABG O2 Saturation ABG Base Excess David Test ABG Potassium A-a O2 Difference Respiratory Index Sodium Chloride Glucose Lactate Mechanical Rate FiO2 Tidal Volume PEEP Potassium Carbon Dioxide Anion Gap BUN Creatinine Est GFR ( Amer) Est GFR (Non-Af Amer) POC Glucose (mg/dL) 161 H Random Glucose Calcium Phosphorus Magnesium Total Bilirubin AST ALT Alkaline Phosphatase Total Protein Albumin Globulin Albumin/Globulin Ratio Arterial Blood Potassium Vancomycin Trough 10.0 08/14/16 08/14/16 08/14/16 06:26 06:28 11:24 WBC RBC Hgb Hct MCV MCH MCHC RDW Plt Count MPV Neut % (Auto) Lymph % (Auto) [place] % (Auto) Eos % (Auto) Baso % (Auto) Neut # Lymph # [place] # Eos # Baso # Neutrophils % (Manual) Lymphocytes % (Manual) Monocytes % (Manual) Eosinophils % (Manual) Platelet Estimate Large Platelets Hypochromasia (manual) Poikilocytosis (manual Anisocytosis (manual) Microcytosis (manual) Target Cells [place] Cells PT 12.9 H INR 1.1 APTT 30 Puncture Site pCO2 pO2 HCO3 ABG pH ABG Total CO2 ABG O2 Saturation ABG Base Excess David Test ABG Potassium A-a O2 Difference Respiratory Index Sodium 135 Chloride 101 Glucose Lactate Mechanical Rate FiO2 Tidal Volume PEEP Potassium 3.8 Carbon Dioxide 23 Anion Gap 15 BUN 13 Creatinine 0.5 L Est GFR ( Amer) > 60 Est GFR (Non-Af Amer) > 60 POC Glucose (mg/dL) 237 H Random Glucose 137 H Calcium 8.2 L Phosphorus 2.6 Magnesium 1.9 Total Bilirubin 0.5 AST 41 ALT 69 Alkaline Phosphatase 193 H D Total Protein 5.9 L Albumin 2.8 L Globulin 3.2 Albumin/Globulin Ratio 0.9 L Arterial Blood Potassium Vancomycin Trough Fingerstick Blood Sugar Results: 237 Review of Systems - Review of Systems Systems not reviewed;Unavailable: Intubated Critical Care Progress Note - Ventilator Checklist Head of Bed 30 Degrees: Yes PUD Prophalyxis: Yes DVT Prophylaxis: Yes - Vent Settings MODE:: PRVC TIDAL VOLUME:: 450 RESP RATE:: 16 FIO2:: 30 PEEP:: 5 - Extremities/Vascular Does the Patient have a Central Venous Catheter?: Yes Insertion Site: PICC Does the Patient need a Central Venous Catheter?: Yes Does the Patient have a Devlin Catheter?: Yes Does the Patient need a Devlin Catheter?: Yes Catheter Insertion Criteria: Patient requires prolonged immobilization - Prophylaxis GI Prophylaxis GI: Pepsid - Prophylaxis DVT Prophylaxis DVT: Lovenox Assessment/Plan (1) Cerebral hemorrhage Current Visit: Yes Status: Acute (2) Subdural hemorrhage following injury Current Visit: Yes Status: Acute Priority: High - Assessment and Plan (Free Text) Plan: Patient Status: Stable s/p craniotomy. Intubated and Sedated. Plan for trach tomorrow with Dr. Levin Neuro: -intubated and sedated -Amatadine 100mg BID and methylphenidate 5mg qAM started -brainstem reflexes intact -POD #13 s/p craniotomy with Dr. Bolden -Dr. Bonner following Imaging: : 08/13/16 CT Head- Right cerebral convexity subdural, unchanged. Status post right parietal craniotomy. No parenchymal hemorrhage. Minimal midline shift, 1- 2 mm, unchanged. Few bubbles of residual extra-axial air, decreased. No evidence of acute hemorrhage. : 08/12/16 CT Head- Right cerebral convexity subdural, unchanged. Status post right parietal craniotomy. No parenchymal hemorrhage. Minimal midline shift, 1- 2 mm, unchanged. Few bubbles of residual extra-axial air, decreased. No evidence of acute hemorrhage. : 08/10/16 CT Head- Status post removal right-sided subdural drainage catheter. Small residual mixed attenuation subdural collection with diminished amount of subdural air. Persistent mild mass effect with compressive effects on the right cerebral hemisphere as described. Minimal [id number] midline shift. Dysconjugate gaze and/or strabismus. 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 Status post right-sided cataract surgery. : 08/07/16 CT Head- Status post drainage of right subdural hematoma. A drainage catheter is seen in the extra-axial space. There is air and fluid in the sub dural space with an average thickness of 9 mm. No change : 08/06/16 CT Head- Status post surgical intervention, placement of drainage catheter into the extra-axial space at the site of prior subdural hematoma edema , mass effect and midline shift have improved considerably. No new or significant findings identified : 08/04/16 CT Head- Acute extra-axial hemorrhage with blood layering in the extra-axial space. Increase in sulcal effacement, mass effect and midline shift. There is no evidence of herniation. This follows removal of the surgical drain identified previously. : 08/02/16 CT Head- Satisfactory postoperative status following craniotomy, evacuation of large extra-axial fluid collection on the right. Greater details are provided above. No new intra-axial abnormalities. Improved edema, mass effect. No evidence of acute infarction. : 07/30/16 CT Head- Large right acute extra-axial hemorrhage with severe mass effect and midline shift. Cardiovascular: -Hemodynamically stable -PICC Line for access Pulmonary: -General Surgery Consult (Dr. Levin) for trach placement -Intubated- PRVC : TV- 450mL : rate- 16/min : PEEP- 5cmH2O : FiO2- 30% -Imaging : 08/14/16 CXR- Lines and tubes in stable position. Mild venous congestion. Probable external device projecting over the left lower kate thorax and right lateral upper kate thorax. Mild cardiomegaly. : 08/13/16 CXR- Endotracheal tube terminates approximately 2.1 cm above the astrid. Nasogastric tube extends expected location of the stomach. Right-sided PICC terminates at the expected location of the cavoatrial junction. : 08/13/16 CXR- ET tube tip at tracheal astrid and should be withdrawn several cm. Otherwise no significant change. : 08/12/16 CXR- In situ ETT and NGT as above. Mild bibasilar atelectasis. Probable calcified pleural plaque right kate diaphragm : 08/12/16 CXR- Interval removal ETT. NGT remains in place as above. Mild bibasilar atelectasis. . Questionable pleural base calcification right hemidiaphragm. : 08/10/16 CXR- In situ ETT, tip of which lies approximately 4.28 cm above astrid. NGT is present, the tip of which is coiled in the left upper quadrant of the abdomen likely within the fundus region of the stomach. Low lung volumes with mild crowded bronchovascular markings and mild bibasilar atelectasis. : 08/09/16 CXR- Lines and tubes in stable position. Patchy increased markings at the left lung base suggestive for atelectasis and or infiltrate with questionable trace left pleural effusion. -ABG : 08/13/16- CO2= 30 / O2= 105 / HCO3= 24.3 / pH= 7.47 : 08/13/16- CO2= 30 / O2= 176 / HCO3= 20.7 / pH= 7.40 : 08/12/16- CO2= 29 / O2= 136 / HCO3= 19.5 / pH= 7.38 : 08/12/16- CO2= 30 / O2= 85 / HCO3= 21.7 / pH= 7.42 : 08/11/16- CO2= 30 / O2= 104 / HCO3= 13.0 / pH= 7.45 : 08/10/16- CO2= 38 / O2= 94 / HCO3= 34.1 / pH= 7.57 : 08/09/16- CO2= 29 / O2= 203 / HCO3= 25.3 / pH= 7.51 Gastrointestinal: -Tube Feeds (isosource 1.5) 40ml/hr -GI Consult (Dr. Peters) for PEG tube placement Hematology: -No acute issues Endocrine: -Novolin Sliding Scale Renal: -No issues Musculoskeletal: -No issues Genitourinary: -Urine Culture (+) for ESBL resistant to cefepime -Primaxin 500mg IV q6 started Infectious Disease: -Leukocytosis -Vancomycin 1g IV q12- Day 3 -Primaxin 500mg IV q6- Day 1 GI Prophylaxis: Pepcid 20mg PO daily DVT Prophylaxis: SCDs Case Discussed with Dr. Quoc Ceballos PGY1 - Date & Time Date: 08/14/16 Time: 16:16 <Justino Kumari - Last Filed: 08/14/16 18:14> CCU Subjective - Physician Review Critical Care Time Spent (in minutes): 45 CCU Objective - Vital Signs / Intake & Output Vital Signs (Last 4 hours): Vital Signs Temp Pulse Resp BP Pulse Ox 08/14/16 16:24 103 H 25 H 162/77 H 100 08/14/16 16:00 100.6 F H 98 H 37 H 100 08/14/16 15:24 96 H 20 161/80 H 100 08/14/16 15:00 91 H 17 100 08/14/16 14:24 92 H 18 148/68 100 Intake and Output (Last 8hrs): Intake & Output 08/14/16 08/14/16 08/14/16 06:59 14:59 22:59 Intake Total 941.6 1161.6 310.4 Output Total 370 400 0 Balance 571.6 761.6 310.4 Weight 185 lb Intake: IV 100 100 Intake, IV Amount 441.6 641.6 110.4 Right PICC 400 600 100 Right Proximal Port PICC 41.6 41.6 10.4 Tube Feeding 400 400 100 Other 120 Output: Urine 370 400 0 Condom 400 0 Urethral (Devlin) 370 Other: # Bowel Movements 0 0 - Medications Active Medications: Active Medications Generic Name Dose Route Start Last Admin Trade Name Freq PRN Reason Stop Dose Admin Acetaminophen 650 mg 08/12/16 10:00 08/14/16 17:24 Tylenol 650mg/20.3ml Solution Ud NG 650 mg Q6 PRN Administration Fever >100.4 F Amantadine HCl 100 mg 08/14/16 18:00 08/14/16 17:24 Amantadine 100 Mg Cap PO 100 mg BID GORDO Administration Famotidine 20 mg 08/12/16 10:00 08/14/16 09:09 Pepcid PO 20 mg DAILY GORDO Administration Fluticasone Propionate 1 spr 08/11/16 18:00 08/14/16 17:21 Flonase BO 1 spray BID GORDO Administration Home Med 1 drop 08/07/16 18:00 08/14/16 17:22 Patient's Own Drops OS 1 drop BID GORDO Administration Vancomycin HCl 1,000 mg/ 250 mls @ 166.6 mls/hr 08/12/16 09:00 08/14/16 08:26 Sodium Chloride IVPB 166.6 mls/hr Q12H GORDO Administration Propofol 1,000 mg in 100 mls @ 2.313 mls/hr 08/12/16 11:52 08/14/16 16:02 Diprivan IV 10 mcg/kg/min .Q24H PRN 4.627 mls/hr TITRATE PER MD ORDER Administration Protocol 5 MCG/KG/MIN Imipenem/Cilastatin Sodium 500 100 mls @ 100 mls/hr 08/14/16 12:00 08/14/16 17:24 mg/ Sodium Chloride IVPB 100 mls/hr Q6H GORDO Administration Sodium Chloride 1,000 mls @ 100 mls/hr 08/14/16 16:35 08/14/16 17:19 Sodium Chloride 0.9% IV 100 mls/hr .Q10H GRODO Administration Insulin Human Regular 0 unit 07/31/16 12:00 08/14/16 11:39 Novolin R SC 4 unit Q6H GORDO Administration Protocol Latanoprost 0 ml 07/31/16 22:00 08/13/16 21:42 Xalatan Opht OD 2.5 ml HS GORDO Administration Lisinopril 10 mg 08/15/16 16:35 Zestril PO DAILY GORDO Methylphenidate HCl 5 mg 08/15/16 10:00 Ritalin PO QAM GORDO Senna/Docusate Sodium 1 tab 08/11/16 22:00 08/13/16 21:43 Senokot S 50 Mg-8.6 Mg PO 1 tab HS GORDO Administration Sennosides 8.6 mg 08/08/16 00:43 08/14/16 17:21 Senokot Tab NG 8.6 mg BID GORDO Administration Timolol Maleate 0 drop 07/31/16 11:15 08/14/16 09:11 Timoptic 0.5% Ophth Soln OD 1 drop DAILY GORDO Administration - Patient Studies Lab Studies: Microbiology Studies 08/12/16 Unknown Urine Culture - Final Urine,Catheterized Escherichia Coli 08/12/16 06:45 Blood Culture - Preliminary Blood-Venous NO GROWTH AFTER 48 HOURS 08/12/16 06:15 Blood Culture - Preliminary Blood-Venous NO GROWTH AFTER 48 HOURS 08/12/16 17:52 Gram Stain - Preliminary Trachasp Lab Studies 08/14/16 08/14/16 08/14/16 Range/Units 11:24 06:28 06:26 WBC (4.8-10.8) K/uL RBC (4.40-5.90) Mil/uL Hgb (12.0-18.0) g/dL Hct (35.0-51.0) % MCV (80.0-94.0) fL MCH (27.0-31.0) pg MCHC (33.0-37.0) g/dL RDW (11.5-14.5) % Plt Count (130-400) K/uL MPV (7.2-11.7) fL Neut % (Auto) (50.0-75.0) % Lymph % (Auto) (20.0-40.0) % [place] % (Auto) (0.0-10.0) % Eos % (Auto) (0.0-4.0) % Baso % (Auto) (0.0-2.0) % Neut # (1.8-7.0) K/uL Lymph # (1.0-4.3) K/uL [place] # (0.0-0.8) K/uL Eos # (0.0-0.7) K/uL Baso # (0.0-0.2) K/uL Neutrophils % (Manual) (50-75) % Lymphocytes % (Manual) (20-40) % Monocytes % (Manual) (0-10) % Eosinophils % (Manual) (0-4) % Platelet Estimate (NORMAL) Large Platelets Hypochromasia (manual) Poikilocytosis (manual Anisocytosis (manual) Microcytosis (manual) Target Cells Kyler Cells PT 12.9 H (9.7-12.2) SECONDS INR 1.1 APTT 30 (21-34) SECONDS Puncture Site pCO2 (35-45) mm/Hg pO2 (80-100) mm/Hg HCO3 (21-28) mmol/L ABG pH (7.35-7.45) ABG Total CO2 (22-28) mmol/L ABG O2 Saturation (95-98) % ABG Base Excess (-2.0-3.0) mmol/L David Test ABG Potassium (3.6-5.2) mmol/L A-a O2 Difference mm/Hg Respiratory Index Sodium 135 (132-148) mmol/l Chloride 101 (98-107) mmol/L Glucose (75-110) mg/dl Lactate (0.7-2.1) mmol/L Mechanical Rate FiO2 % Tidal Volume PEEP Potassium 3.8 (3.6-5.2) mmol/L Carbon Dioxide 23 (22-30) mmol/L Anion Gap 15 (10-20) BUN 13 (9-20) mg/dL Creatinine 0.5 L (0.8-1.5) MG/DL Est GFR ( Amer) > 60 Est GFR (Non-Af Amer) > 60 POC Glucose (mg/dL) 237 H (65-110) mg/dL Random Glucose 137 H (75-110) mg/dL Calcium 8.2 L (8.6-10.4) mg/dl Phosphorus 2.6 (2.5-4.5) mg/dL Magnesium 1.9 (1.6-2.3) mg/dL Total Bilirubin 0.5 (0.2-1.3) mg/dL AST 41 (17-59) U/L ALT 69 (21-72) U/L Alkaline Phosphatase 193 H D (38-126) U/L Total Protein 5.9 L (6.3-8.3) g/dL Albumin 2.8 L (3.5-5.0) g/dL Globulin 3.2 (2.2-3.9) gm/dL Albumin/Globulin Ratio 0.9 L (1.0-2.1) Arterial Blood Potassium (3.6-5.2) mmol/L Vancomycin Trough (5.0-10.0) ug/mL 08/14/16 08/14/16 08/14/16 Range/Units 06:26 06:25 06:00 WBC 14.6 H (4.8-10.8) K/uL RBC 3.59 L (4.40-5.90) Mil/uL Hgb 9.5 L (12.0-18.0) g/dL Hct 28.5 L (35.0-51.0) % MCV 79.4 L (80.0-94.0) fL MCH 26.4 L (27.0-31.0) pg MCHC 33.2 (33.0-37.0) g/dL RDW 13.9 (11.5-14.5) % Plt Count 387 (130-400) K/uL MPV 9.2 (7.2-11.7) fL Neut % (Auto) 81.2 H (50.0-75.0) % Lymph % (Auto) 9.6 L (20.0-40.0) % [place] % (Auto) 6.4 (0.0-10.0) % Eos % (Auto) 2.5 (0.0-4.0) % Baso % (Auto) 0.3 (0.0-2.0) % Neut # 11.8 H (1.8-7.0) K/uL Lymph # 1.4 (1.0-4.3) K/uL [place] # 0.9 H (0.0-0.8) K/uL Eos # 0.4 (0.0-0.7) K/uL Baso # 0.0 (0.0-0.2) K/uL Neutrophils % (Manual) 81 H (50-75) % Lymphocytes % (Manual) 9 L (20-40) % Monocytes % (Manual) 6 (0-10) % Eosinophils % (Manual) 4 (0-4) % Platelet Estimate Normal (NORMAL) Large Platelets Present Hypochromasia (manual) Slight Poikilocytosis (manual Slight Anisocytosis (manual) Slight Microcytosis (manual) Slight Target Cells Slight Trent Cells Slight PT (9.7-12.2) SECONDS INR APTT (21-34) SECONDS Puncture Site pCO2 (35-45) mm/Hg pO2 (80-100) mm/Hg HCO3 (21-28) mmol/L ABG pH (7.35-7.45) ABG Total CO2 (22-28) mmol/L ABG O2 Saturation (95-98) % ABG Base Excess (-2.0-3.0) mmol/L David Test ABG Potassium (3.6-5.2) mmol/L A-a O2 Difference mm/Hg Respiratory Index Sodium (132-148) mmol/l Chloride (98-107) mmol/L Glucose (75-110) mg/dl Lactate (0.7-2.1) mmol/L Mechanical Rate FiO2 % Tidal Volume PEEP Potassium (3.6-5.2) mmol/L Carbon Dioxide (22-30) mmol/L Anion Gap (10-20) BUN (9-20) mg/dL Creatinine (0.8-1.5) MG/DL Est GFR ( Amer) Est GFR (Non-Af Amer) POC Glucose (mg/dL) 161 H (65-110) mg/dL Random Glucose (75-110) mg/dL Calcium (8.6-10.4) mg/dl Phosphorus (2.5-4.5) mg/dL Magnesium (1.6-2.3) mg/dL Total Bilirubin (0.2-1.3) mg/dL AST (17-59) U/L ALT (21-72) U/L Alkaline Phosphatase (38-126) U/L Total Protein (6.3-8.3) g/dL Albumin (3.5-5.0) g/dL Globulin (2.2-3.9) gm/dL Albumin/Globulin Ratio (1.0-2.1) Arterial Blood Potassium (3.6-5.2) mmol/L Vancomycin Trough 10.0 (5.0-10.0) ug/mL 08/14/16 08/13/16 08/13/16 Range/Units 05:29 23:38 18:04 WBC (4.8-10.8) K/uL RBC (4.40-5.90) Mil/uL Hgb (12.0-18.0) g/dL Hct (35.0-51.0) % MCV (80.0-94.0) fL MCH (27.0-31.0) pg MCHC (33.0-37.0) g/dL RDW (11.5-14.5) % Plt Count (130-400) K/uL MPV (7.2-11.7) fL Neut % (Auto) (50.0-75.0) % Lymph % (Auto) (20.0-40.0) % [place] % (Auto) (0.0-10.0) % Eos % (Auto) (0.0-4.0) % Baso % (Auto) (0.0-2.0) % Neut # (1.8-7.0) K/uL Lymph # (1.0-4.3) K/uL [place] # (0.0-0.8) K/uL Eos # (0.0-0.7) K/uL Baso # (0.0-0.2) K/uL Neutrophils % (Manual) (50-75) % Lymphocytes % (Manual) (20-40) % Monocytes % (Manual) (0-10) % Eosinophils % (Manual) (0-4) % Platelet Estimate (NORMAL) Large Platelets Hypochromasia (manual) Poikilocytosis (manual Anisocytosis (manual) Microcytosis (manual) Target Cells Kyler Cells PT (9.7-12.2) SECONDS INR APTT (21-34) SECONDS Puncture Site Lr pCO2 30 L (35-45) mm/Hg pO2 105 H (80-100) mm/Hg HCO3 24.3 (21-28) mmol/L ABG pH 7.47 H (7.35-7.45) ABG Total CO2 22.7 (22-28) mmol/L ABG O2 Saturation 99.7 H (95-98) % ABG Base Excess -0.9 (-2.0-3.0) mmol/L David Test Pos ABG Potassium 3.5 L (3.6-5.2) mmol/L A-a O2 Difference 71.0 mm/Hg Respiratory Index 0.7 Sodium 138.0 (132-148) mmol/l Chloride 112.0 H (98-107) mmol/L Glucose 135 H (75-110) mg/dl Lactate 1.8 (0.7-2.1) mmol/L Mechanical Rate 16 FiO2 30.0 % Tidal Volume 450 PEEP 5 Potassium (3.6-5.2) mmol/L Carbon Dioxide (22-30) mmol/L Anion Gap (10-20) BUN (9-20) mg/dL Creatinine (0.8-1.5) MG/DL Est GFR ( Amer) Est GFR (Non-Af Amer) POC Glucose (mg/dL) 113 H 165 H (65-110) mg/dL Random Glucose (75-110) mg/dL Calcium (8.6-10.4) mg/dl Phosphorus (2.5-4.5) mg/dL Magnesium (1.6-2.3) mg/dL Total Bilirubin (0.2-1.3) mg/dL AST (17-59) U/L ALT (21-72) U/L Alkaline Phosphatase (38-126) U/L Total Protein (6.3-8.3) g/dL Albumin (3.5-5.0) g/dL Globulin (2.2-3.9) gm/dL Albumin/Globulin Ratio (1.0-2.1) Arterial Blood Potassium 3.5 L (3.6-5.2) mmol/L Vancomycin Trough (5.0-10.0) ug/mL Laboratory Results - last 24 hr 08/13/16 08/13/16 08/14/16 18:04 23:38 05:29 WBC RBC Hgb Hct MCV MCH MCHC RDW Plt Count MPV Neut % (Auto) Lymph % (Auto) [place] % (Auto) Eos % (Auto) Baso % (Auto) Neut # Lymph # [place] # Eos # Baso # Neutrophils % (Manual) Lymphocytes % (Manual) Monocytes % (Manual) Eosinophils % (Manual) Platelet Estimate Large Platelets Hypochromasia (manual) Poikilocytosis (manual Anisocytosis (manual) Microcytosis (manual) Target Cells Trent Cells PT INR APTT Puncture Site Lr pCO2 30 L pO2 105 H HCO3 24.3 ABG pH 7.47 H ABG Total CO2 22.7 ABG O2 Saturation 99.7 H ABG Base Excess -0.9 David Test Pos ABG Potassium 3.5 L A-a O2 Difference 71.0 Respiratory Index 0.7 Sodium 138.0 Chloride 112.0 H Glucose 135 H Lactate 1.8 Mechanical Rate 16 FiO2 30.0 Tidal Volume 450 PEEP 5 Potassium Carbon Dioxide Anion Gap BUN Creatinine Est GFR ( Amer) Est GFR (Non-Af Amer) POC Glucose (mg/dL) 165 H 113 H Random Glucose Calcium Phosphorus Magnesium Total Bilirubin AST ALT Alkaline Phosphatase Total Protein Albumin Globulin Albumin/Globulin Ratio Arterial Blood Potassium 3.5 L Vancomycin Trough 08/14/16 08/14/16 08/14/16 06:00 06:25 06:26 WBC 14.6 H RBC 3.59 L Hgb 9.5 L Hct 28.5 L MCV 79.4 L MCH 26.4 L MCHC 33.2 RDW 13.9 Plt Count 387 MPV 9.2 Neut % (Auto) 81.2 H Lymph % (Auto) 9.6 L [place] % (Auto) 6.4 Eos % (Auto) 2.5 Baso % (Auto) 0.3 Neut # 11.8 H Lymph # 1.4 [place] # 0.9 H Eos # 0.4 Baso # 0.0 Neutrophils % (Manual) 81 H Lymphocytes % (Manual) 9 L Monocytes % (Manual) 6 Eosinophils % (Manual) 4 Platelet Estimate Normal Large Platelets Present Hypochromasia (manual) Slight Poikilocytosis (manual Slight Anisocytosis (manual) Slight Microcytosis (manual) Slight Target Cells Slight Trent Cells Slight PT INR APTT Puncture Site pCO2 pO2 HCO3 ABG pH ABG Total CO2 ABG O2 Saturation ABG Base Excess David Test ABG Potassium A-a O2 Difference Respiratory Index Sodium Chloride Glucose Lactate Mechanical Rate FiO2 Tidal Volume PEEP Potassium Carbon Dioxide Anion Gap BUN Creatinine Est GFR ( Amer) Est GFR (Non-Af Amer) POC Glucose (mg/dL) 161 H Random Glucose Calcium Phosphorus Magnesium Total Bilirubin AST ALT Alkaline Phosphatase Total Protein Albumin Globulin Albumin/Globulin Ratio Arterial Blood Potassium Vancomycin Trough 10.0 08/14/16 08/14/16 08/14/16 06:26 06:28 11:24 WBC RBC Hgb Hct MCV MCH MCHC RDW Plt Count MPV Neut % (Auto) Lymph % (Auto) [place] % (Auto) Eos % (Auto) Baso % (Auto) Neut # Lymph # [place] # Eos # Baso # Neutrophils % (Manual) Lymphocytes % (Manual) Monocytes % (Manual) Eosinophils % (Manual) Platelet Estimate Large Platelets Hypochromasia (manual) Poikilocytosis (manual Anisocytosis (manual) Microcytosis (manual) Target Cells Trent Cells PT 12.9 H INR 1.1 APTT 30 Puncture Site pCO2 pO2 HCO3 ABG pH ABG Total CO2 ABG O2 Saturation ABG Base Excess David Test ABG Potassium A-a O2 Difference Respiratory Index Sodium 135 Chloride 101 Glucose Lactate Mechanical Rate FiO2 Tidal Volume PEEP Potassium 3.8 Carbon Dioxide 23 Anion Gap 15 BUN 13 Creatinine 0.5 L Est GFR ( Amer) > 60 Est GFR (Non-Af Amer) > 60 POC Glucose (mg/dL) 237 H Random Glucose 137 H Calcium 8.2 L Phosphorus 2.6 Magnesium 1.9 Total Bilirubin 0.5 AST 41 ALT 69 Alkaline Phosphatase 193 H D Total Protein 5.9 L Albumin 2.8 L Globulin 3.2 Albumin/Globulin Ratio 0.9 L Arterial Blood Potassium Vancomycin Trough Attending/Attestation - Attestation Notes (Text): 08/14/16 18:13 Patient seen and examined in the intensive care unit. Case discussed with house staff in the morning rounds. Remains intubated on ventilatory support Consulted for tracheostomy tomorrow No change in mental status and patient seen by neurology Continue feeding
[2016-08-14] MEDS: Docusate-Senna 50 mg-8.6 mg Tab PO SCH (21:40)
[2016-08-14] MEDS: Latanoprost 2.5 ml Opht Soln OD SCH (21:42)
[2016-08-15] MEDS: (Novolin R) Insulin Human Regular 100 units/ml vial SC SCH ×5 (00:15→23:59)
[2016-08-15] MEDS: Sodium Chloride 0.9% 1,000 ML IV SCH ×4 (05:02→23:53)
[2016-08-15 05:51] LABS: ABG ALLEN TEST POS; ABG MECHANICAL RATE 16; ATERIAL BLOOD GAS PEEP 5; DRAW SITE LR
[2016-08-15] MEDS: Propofol 10 mg/ml 1,000 MG/100 ML VIAL IV PRN ×2 (06:17→16:04)
[2016-08-15 06:49] LABS: CHLORIDE 101 mmol/L (98-107)
[2016-08-15 06:50] LABS: POTASSIUM 3.9 mmol/L (3.6-5.2); SODIUM 135 mmol/L (132-148)
[2016-08-15 06:52] LABS: BASO # 0.1 K/uL (0.0-0.2); BASO % 0.7 % (0.0-2.0); BILIRUBIN,TOTAL 0.5 mg/dL (0.2-1.3); CARBON DIOXIDE 28 mmol/L (22-30); EOS # 0.3 K/uL (0.0-0.7); EOS % 2.7 % (0.0-4.0); GFR AFRICAN-AMERICAN > 60; HEMATOCRIT 28.6 % (35.0-51.0); LYMPH # 1.8 K/uL (1.0-4.3); LYMPH % 15.5 % (20.0-40.0); MEAN CELL VOLUME 80.1 fL (80.0-94.0); MEAN CORPUSCULAR HEMOGLOBIN 25.6 pg (27.0-31.0); MONO # 1.1 K/uL (0.0-0.8); MONO % 9.4 % (0.0-10.0); RED CELL DISTRIBUTION WIDTH 13.4 % (11.5-14.5); WHITE BLOOD COUNT 11.9 K/uL (4.8-10.8)
[2016-08-15 06:53] LABS: ALB/GLOB RATIO 0.9 (1.0-2.1); ALKALINE PHOSPHATASE 199 U/L (38-126); ALT/SGPT 66 U/L (21-72); AST/SGOT 44 U/L (17-59); BLOOD UREA NITROGEN 12 mg/dL (9-20); GLUCOSE,RANDOM 112 mg/dL (75-110); PHOSPHOROUS 3.1 mg/dL (2.5-4.5); TOTAL PROTEIN 5.7 g/dL (6.3-8.3)
[2016-08-15 06:54] LABS: MAGNESIUM 2.1 mg/dL (1.6-2.3)
[2016-08-15 06:55] LABS: INR 1.1
--- NOTE | 2016-08-15 07:21 | CP.PCM.PN ---
Subjective - Date & Time of Evaluation Date of Evaluation: 08/14/16 Time of Evaluation: 18:00 - Subjective Subjective: Medical Attending Note Follow-up: Subdural hemorrhage, ESBL+ UTI, Hypertension Patient seen, examined and case discussed with ICU, and General Surgery. Unable to obtain review of systems secondary to patient's clinical state. Discussed with patient's daughter, Nelia regarding patient's ESBL+ UTI currently on IV Abx and recommend for trach, who was also spoken with by the general surgeon on the case. Objective - Vital Signs/Intake and Output Vital Signs (last 24 hours): Temp Pulse Resp BP Pulse Ox 99.8 F H 99 H 20 157/84 H 100 08/15/16 04:00 08/15/16 06:33 08/15/16 06:33 08/15/16 06:34 08/15/16 06:33 Intake and Output: 08/15/16 08/15/16 06:59 18:59 Intake Total 2062.4 Output Total 500 Balance 1562.4 - Medications Medications: Current Medications Acetaminophen (Tylenol 650mg/20.3ml Solution Ud) 650 mg NG Q6 PRN PRN Reason: Fever >100.4 F Last Admin: 08/14/16 23:17 Dose: 650 mg Amantadine HCl (Amantadine 100 Mg Cap) 100 mg PO BID [facility] [place] Last Admin: 08/14/16 17:24 Dose: 100 mg Famotidine (Pepcid) 20 mg PO DAILY [facility] [place] Last Admin: 08/14/16 09:09 Dose: 20 mg Fluticasone Propionate (Flonase) 1 spr BO BID [facility] [place] Last Admin: 08/14/16 17:21 Dose: 1 spray Home Med (Patient's Own Drops) 1 drop OS BID [facility] [place] Last Admin: 08/14/16 17:22 Dose: 1 drop Vancomycin HCl 1,000 mg/ (Sodium Chloride) 250 mls @ 166.6 mls/hr IVPB Q12H [facility] [place] Last Admin: 08/14/16 20:16 Dose: 166.6 mls/hr Propofol (Diprivan) 1,000 mg in 100 mls @ 2.313 mls/hr IV .Q24H PRN; Protocol; 5 MCG/KG/MIN PRN Reason: TITRATE PER MD ORDER Last Admin: 08/15/16 06:17 Dose: 11.23 mcg/kg/min, 5.2 mls/hr Imipenem/Cilastatin Sodium 500 (mg/ Sodium Chloride) 100 mls @ 100 mls/hr IVPB Q6H [facility] [place] Last Admin: 08/15/16 05:04 Dose: 100 mls/hr Sodium Chloride (Sodium Chloride 0.9%) 1,000 mls @ 100 mls/hr IV .Q10H [facility] [place] Last Admin: 08/15/16 05:03 Dose: 100 mls/hr Insulin Human Regular (Novolin R) 0 unit SC Q6H [facility] [place] PRN Reason: Protocol Last Admin: 08/15/16 06:19 Dose: Not Given Latanoprost (Xalatan Opht) 0 ml OD HS [facility] [place] Last Admin: 08/14/16 21:42 Dose: 2.5 ml Lisinopril (Zestril) 10 mg PO DAILY [facility] [place] Methylphenidate HCl (Ritalin) 5 mg PO QAM [facility] [place] Senna/Docusate Sodium (Senokot S 50 Mg-8.6 Mg) 1 tab PO [facility] Last Admin: 08/14/16 21:40 Dose: 1 tab Sennosides (Senokot Tab) 8.6 mg NG BID [facility] [place] Last Admin: 08/14/16 17:21 Dose: 8.6 mg Timolol Maleate (Timoptic 0.5% Ophth Soln) 0 drop OD DAILY [facility] [place] Last Admin: 08/14/16 09:11 Dose: 1 drop - Labs Labs: 08/15/16 06:23 08/15/16 06:23 PT 12.3 SECONDS (9.7-12.2) H 08/15/16 06:23 INR 1.1 08/15/16 06:23 APTT 29 SECONDS (21-34) 08/15/16 06:23 - Constitutional Appears: Agitated, Confused, Chronically Ill - Head Exam Additional comments: Dressing over the right aspect of head intubated NGT [place] catheter Prevalon boots Right PICC line - Eye Exam Additional comments: Left eye adduction Right eye mild tracking - ENT Exam ENT Exam: Mucous Membranes Dry - Respiratory Exam Respiratory Exam: Decreased Breath Sounds. absent: Stridor Additional comments: intubated - Cardiovascular Exam Cardiovascular Exam: REGULAR RHYTHM, +S1, +S2 - GI/Abdominal Exam GI & Abdominal Exam: Soft, Normal Bowel Sounds. absent: Distended, Firm, Guarding, Rigid, Tenderness, Rebound - Skin Skin Exam: Dry, Normal Color, Warm Assessment and Plan (1) Cerebral hemorrhage Status: Acute (2) Hypertension Status: Chronic (3) Diabetes Status: Chronic (4) Leukocytosis Status: Acute (5) Urinary tract infection Status: Acute (6) ESBL (extended spectrum beta-lactamase) producing bacteria infection Status: Acute (7) Prophylactic measure Status: Acute - Assessment and Plan (Free Text) Assessment: (1) Cerebral hemorrhage Assessment & Plan: * Critical care: help appreciated * Neurosurgery: Dr. Bolden on board-->help appreciated * Neurology: Dr Bonner on board-->help appreciated * Head CT (07/30/16): CT Head without contrast: 1. The left orbit appears to be rotated 90 degrees to the right while the right orbit appears to be oriented normally. 2. 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 This results in severe mass effect on the underlying brain, including 1.4 cm of leftward midline shift and compression of the right lateral ventricle. Asymmetric enlargement of the right temporal horn suggestive of early entrapment. * Head CT (08/02/16): satisfactory postoperative status following craniotomy, evacuation of large extra-axial fluid collection on the right. No new intra- axial abnormalities. Improved edema, mass effect. No evidence of acute infarction. * Head CT (08/04/16) showed acute extra-axial hemorrhage with blood layering in the extra-axial space. Increase in sulcal effacement, mass effect and midline shift. There is no evidence of herniation. This follows removal of the surgical drain identified previously. * Head CT (08/06/16): status post surgical intervention, placement of drainage catheter into the extra-axial space at the site prior subdural hematoma edema, mass effect and midline shift have improved considerably. No new or significant findings identified. * Head CT (08/07/16): status post drainage of right subdural hematoma. Drainage catheter is nora in the extra axial space. Air and fluid in the usbdral space with an average thickeness of 9mm * Head CT (08/10/16): status post removal right sided subdural drainage catheter. Small residual mixed attenuation subdural collection with diminished amount of subdural air. Persistent mild mass effect with compressive effects on the right cerebral hemisphere. Minial right to left midline shift. Dysconjugate gaze and/ or strabismus. 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 status post right sided cataract surgery * Head CT (08/13/16): redemonstrated to small to medium sized hypodense of residual right sided subdural hematoma. Minmindal right to left midline shift. Previously noted small amount of subdural air on prior study has undegone further resoprtion. Persistent mild subjacent mass effect with compression of cerebral sulci and mild compression of right lateral ventricle. No evidence of obstructive hydrocephalus. * POD 12: s/p Kyler hole and evacuation of subdural hemorrhage with Dang and David drain * POD 8 s/p right frontotemporal craniotomy; evacuation of acute subdural drain present * Removal of drain on 08/03/16 * Keppra 500mg IVPB Q 12hours for seizure prophylaxis * Per neurosurgery, prefers patient off anticoagulation * continue Neurochecks * off sedation; intubated on 08/12/16, on NS 100cc/hr * Recommended by Neurology, for Amantidine and Ritalin, and NS 100cc/hr Status: Acute (2) Acute Respiratory Failure Assessment & Plan: * Multiple intubation/Reintubations during hospitalization * Discussed with ICU, recommended for Trach tomorrow at about 1-2pm * General Surgery (Dr. Levin) on board-->discussed with patient's nephew and daughter regarding surgery Status: Acute (3) Hypertension Assessment & Plan: * NS 100c cc/hr * Lisinopril 10mg PO daily * Monitor vitals signs Status: Chronic (4) Diabetes Assessment & Plan: * [id number]: 5.9 * Controlled * Accuchecks Q6 hours * Regular insulin sliding scale subq Q 6hours * on feedings Status: Chronic (5) ESBL+ UTI; Leukocytosis Assessment & Plan: * Blood cultures X2: negative thus far urine culture (08/12/16) * Elevated white count in 31-->24-->24-->14 * D/C Cefepime 1 gram Q 12hour, started on Primaxin IV and Vancomycin 1g IV Q 12hours * Febrile, leukocytosis * UA: pyuria, hematuria, +esterase; urine culture: gram negative bebo pending speciation * Fever: on hypothermic blanket (6) Prophylactic measure Assessment & Plan: * Neurosurgery prefers patient off anticoagulation per prior discussion with ICU * NGT tube * Pepcid 20mg PO daily * No benzos * Seizure prophylaxis * Intubated * On sedation * PICC line Status: Acute
[2016-08-15] MEDS: Fluticasone Nasal 50 mcg/Spray NAS SCH ×2 (09:36→17:49)
[2016-08-15] MEDS: [UNRECOGNIZED DRUG - OTHER] OS SCH ×2 (09:39→17:49)
--- NOTE | 2016-08-15 11:02 | CP.CCUPN ---
<Tucker,Daron - Last Filed: 08/15/16 10:57> CCU Subjective - Physician Review Subjective (Free Text): 08/13/16 16:45 Patient seen and examined at the bedside. No acute events overnight. No acute distress. Nursing staff reports no issues. Re-intubated due to resp distress and SOB. Patient responsive to painful stimuli. Currently afebrile. Today on rounds, the patient's NS rate was decreaesed to 50ml/hr. The patient went for PICC placement (consent obtained over the phone with daughter). The patient right femoral TLC was removed at the bedside. 08/14/16 16:11 Patient seen and examined at the bedside. No acute events overnight. No acute distress. Nursing staff reports no issues. Intubated due to resp distress and SOB, PRVC TV 450, Rate 16, PEEP 5, FiO2 30%. Patient responsive to painful stimuli. Currently afebrile. Today on rounds, patient was started on amantadine and ritalin per Dr. Bonner's request. Patient was evaluated by GI and general surgery teams for PEG tube placement and trach respectively. The patient's urine culture returned ESBL resistant to cefepime. Primaxin was started. The patient's magnesium was also replaced. 08/15/16 10:58 Patient seen and examined at the bedside. No acute events overnight. No acute distress. Nursing staff reports no issues. Patient was febrile overnight 100.5 * at 23:17 and 00:00. T-max still 103.1 on 08/13/16 at 18:15. Patient remains on PRVC TV 450, Rate 16, PEEP 5, FiO2 30%. Patient responsive to painful stimuli. Currently afebrile. Patient is for trach placement this afternoon with Dr. Levin. Today on rounds, the patient was noted to have a mixed alkalosis (respiratory > metabolic). The patient's ventilator tidal volume setting was changed from 450mL to 400mL. The patient is NPO. Critical Care Time Spent (in minutes): 60 CCU Objective - Vital Signs / Intake & Output Vital Signs (Last 4 hours): Vital Signs Pulse Resp BP Pulse Ox 08/15/16 07:23 91 H 20 167/74 H 100 08/15/16 07:00 98 H 21 100 Intake and Output (Last 8hrs): Intake & Output 08/14/16 08/15/16 08/15/16 22:59 06:59 14:59 Intake Total 1416.6 1341.6 105.2 Output Total 0 500 Balance 1416.6 841.6 105.2 Weight 81 kg Intake: IV 100 100 Intake, IV Amount 841.6 841.6 105.2 Right PICC 800 800 100 Right Proximal Port PICC 41.6 41.6 5.2 Tube Feeding 400 400 0 Other 75 Output: Urine 0 500 Condom 0 500 Stool 0 Other: # Bowel Movements 0 - Physical Exam Head: Positive for: Normocephalic, Other (bandages in place and C/D/I, ET Tube in place). 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 Negative for: EOMI Conjunctiva: Positive for: Normal Pharnyx: Positive for: Other (gag and cough reflexes intact) Neck: Negative for: JVD Respiratory/Chest: Positive for: Clear to Auscultation, Good Air Exchange. Negative for: Respiratory Distress, Accessory Muscle Use, Wheezes, Rales Cardiovascular: Positive for: Regular Rate and Rhythm, Normal S1, S2, Peripheal Pulses Present. Negative for: Murmurs Abdomen: Positive for: Normal Bowel Sounds. Negative for: Tenderness, Distention, Rebound, Guarding Upper Extremity: Positive for: Normal Inspection, NORMAL PULSES, Neurovascularly Intact. Negative for: Cyanosis, Edema Lower Extremity: Positive for: Normal Inspection, NORMAL PULSES, Neurovascularly Intact. Negative for: Edema Neurological: Positive for: Motor Func Grossly Intact, Other (brainstem reflexes intact, more awake and responsive today) Skin: Positive for: Warm, Dry Psychiatric: Positive for: Alert, Agitated - Medications Active Medications: Active Medications Generic Name Dose Route Start Last Admin Trade Name Freq PRN Reason Stop Dose Admin Acetaminophen 650 mg 08/12/16 10:00 08/14/16 23:17 Tylenol 650mg/20.3ml Solution Ud NG 650 mg Q6 PRN Administration Fever >100.4 F Amantadine HCl 100 mg 08/14/16 18:00 08/15/16 09:38 Amantadine 100 Mg Cap PO 100 mg BID GORDO Administration Famotidine 20 mg 08/12/16 10:00 08/15/16 09:37 Pepcid PO 20 mg DAILY GORDO Administration Fluticasone Propionate 1 spr 08/11/16 18:00 08/15/16 09:36 Flonase BO 1 spray BID GORDO Administration Home Med 1 drop 08/07/16 18:00 08/15/16 09:39 Patient's Own Drops OS 1 drop BID GORDO Administration Vancomycin HCl 1,000 mg/ 250 mls @ 166.6 mls/hr 08/12/16 09:00 08/15/16 08:28 Sodium Chloride IVPB 166.6 mls/hr Q12H GORDO Administration Propofol 1,000 mg in 100 mls @ 2.313 mls/hr 08/12/16 11:52 08/15/16 06:17 Diprivan IV 11.23 mcg/kg/min .Q24H PRN 5.2 mls/hr TITRATE PER MD ORDER Administration Protocol 5 MCG/KG/MIN Imipenem/Cilastatin Sodium 500 100 mls @ 100 mls/hr 08/14/16 12:00 08/15/16 05:04 mg/ Sodium Chloride IVPB 100 mls/hr Q6H GORDO Administration Sodium Chloride 1,000 mls @ 100 mls/hr 08/14/16 16:35 08/15/16 05:03 Sodium Chloride 0.9% IV 100 mls/hr .Q10H GORDO Administration Insulin Human Regular 0 unit 07/31/16 12:00 08/15/16 06:19 Novolin R SC Not Given Q6H GORDO Protocol Latanoprost 0 ml 07/31/16 22:00 08/14/16 21:42 Xalatan Opht OD 2.5 ml HS GORDO Administration Lisinopril 10 mg 08/15/16 16:35 Zestril PO DAILY GORDO Methylphenidate HCl 5 mg 08/15/16 10:00 08/15/16 09:38 Ritalin PO 5 mg QAM GORDO Administration Senna/Docusate Sodium 1 tab 08/11/16 22:00 08/14/16 21:40 Senokot S 50 Mg-8.6 Mg PO 1 tab HS GORDO Administration Sennosides 8.6 mg 08/08/16 00:43 08/15/16 09:38 Senokot Tab NG 8.6 mg BID GORDO Administration Timolol Maleate 0 drop 07/31/16 11:15 08/15/16 09:37 Timoptic 0.5% Ophth Soln OD 1 drop DAILY GODRO Administration - Patient Studies Lab Studies: Microbiology Studies 08/12/16 06:45 Blood Culture - Preliminary Blood-Venous NO GROWTH AFTER 3 DAYS 08/12/16 06:15 Blood Culture - Preliminary Blood-Venous NO GROWTH AFTER 3 DAYS 08/12/16 Unknown Urine Culture - Final Urine,Catheterized Escherichia Coli Lab Studies 08/15/16 08/15/16 08/15/16 Range/Units 06:23 06:23 06:23 WBC 11.9 H (4.8-10.8) K/uL RBC 3.57 L (4.40-5.90) Mil/uL Hgb 9.2 L (12.0-18.0) g/dL Hct 28.6 L (35.0-51.0) % MCV 80.1 (80.0-94.0) fL MCH 25.6 L (27.0-31.0) pg MCHC 32.0 L (33.0-37.0) g/dL RDW 13.4 (11.5-14.5) % Plt Count 398 (130-400) K/uL MPV 9.0 (7.2-11.7) fL Neut % (Auto) 71.7 (50.0-75.0) % Lymph % (Auto) 15.5 L (20.0-40.0) % [place] % (Auto) 9.4 (0.0-10.0) % Eos % (Auto) 2.7 (0.0-4.0) % Baso % (Auto) 0.7 (0.0-2.0) % Neut # 8.6 H (1.8-7.0) K/uL Lymph # 1.8 (1.0-4.3) K/uL [place] # 1.1 H (0.0-0.8) K/uL Eos # 0.3 (0.0-0.7) K/uL Baso # 0.1 (0.0-0.2) K/uL PT 12.3 H (9.7-12.2) SECONDS INR 1.1 APTT 29 (21-34) SECONDS Puncture Site pCO2 (35-45) mm/Hg pO2 (80-100) mm/Hg HCO3 (21-28) mmol/L ABG pH (7.35-7.45) ABG Total CO2 (22-28) mmol/L ABG O2 Saturation (95-98) % ABG Base Excess (-2.0-3.0) mmol/L David Test ABG Potassium (3.6-5.2) mmol/L A-a O2 Difference mm/Hg Respiratory Index Sodium 135 (132-148) mmol/l Chloride 101 (98-107) mmol/L Glucose (75-110) mg/dl Lactate (0.7-2.1) mmol/L Mechanical Rate FiO2 % Tidal Volume PEEP Potassium 3.9 (3.6-5.2) mmol/L Carbon Dioxide 28 (22-30) mmol/L Anion Gap 10 (10-20) BUN 12 (9-20) mg/dL Creatinine 0.5 L (0.8-1.5) MG/DL Est GFR ( Amer) > 60 Est GFR (Non-Af Amer) > 60 POC Glucose (mg/dL) (65-110) mg/dL Random Glucose 112 H (75-110) mg/dL Calcium 8.0 L (8.6-10.4) mg/dl Phosphorus 3.1 (2.5-4.5) mg/dL Magnesium 2.1 (1.6-2.3) mg/dL Total Bilirubin 0.5 (0.2-1.3) mg/dL AST 44 (17-59) U/L ALT 66 (21-72) U/L Alkaline Phosphatase 199 H (38-126) U/L Total Protein 5.7 L (6.3-8.3) g/dL Albumin 2.8 L (3.5-5.0) g/dL Globulin 3.0 (2.2-3.9) gm/dL Albumin/Globulin Ratio 0.9 L (1.0-2.1) Arterial Blood Potassium (3.6-5.2) mmol/L 08/15/16 08/15/16 08/14/16 Range/Units 05:56 05:36 23:22 WBC (4.8-10.8) K/uL RBC (4.40-5.90) Mil/uL Hgb (12.0-18.0) g/dL Hct (35.0-51.0) % MCV (80.0-94.0) fL MCH (27.0-31.0) pg MCHC (33.0-37.0) g/dL RDW (11.5-14.5) % Plt Count (130-400) K/uL MPV (7.2-11.7) fL Neut % (Auto) (50.0-75.0) % Lymph % (Auto) (20.0-40.0) % [place] % (Auto) (0.0-10.0) % Eos % (Auto) (0.0-4.0) % Baso % (Auto) (0.0-2.0) % Neut # (1.8-7.0) K/uL Lymph # (1.0-4.3) K/uL [place] # (0.0-0.8) K/uL Eos # (0.0-0.7) K/uL Baso # (0.0-0.2) K/uL PT (9.7-12.2) SECONDS INR APTT (21-34) SECONDS Puncture Site Lr pCO2 33 L (35-45) mm/Hg pO2 110 H (80-100) mm/Hg HCO3 28.3 H (21-28) mmol/L ABG pH 7.52 H (7.35-7.45) ABG Total CO2 27.9 (22-28) mmol/L ABG O2 Saturation 99.6 H (95-98) % ABG Base Excess 4.3 H (-2.0-3.0) mmol/L David Test Pos ABG Potassium 3.9 (3.6-5.2) mmol/L A-a O2 Difference 63.0 mm/Hg Respiratory Index 0.6 Sodium 139.0 (132-148) mmol/l Chloride 110.0 H (98-107) mmol/L Glucose 115 H (75-110) mg/dl Lactate 1.5 (0.7-2.1) mmol/L Mechanical Rate 16 FiO2 30.0 % Tidal Volume 450 PEEP 5 Potassium (3.6-5.2) mmol/L Carbon Dioxide (22-30) mmol/L Anion Gap (10-20) BUN (9-20) mg/dL Creatinine (0.8-1.5) MG/DL Est GFR ( Amer) Est GFR (Non-Af Amer) POC Glucose (mg/dL) 135 H 154 H (65-110) mg/dL Random Glucose (75-110) mg/dL Calcium (8.6-10.4) mg/dl Phosphorus (2.5-4.5) mg/dL Magnesium (1.6-2.3) mg/dL Total Bilirubin (0.2-1.3) mg/dL AST (17-59) U/L ALT (21-72) U/L Alkaline Phosphatase (38-126) U/L Total Protein (6.3-8.3) g/dL Albumin (3.5-5.0) g/dL Globulin (2.2-3.9) gm/dL Albumin/Globulin Ratio (1.0-2.1) Arterial Blood Potassium 3.9 (3.6-5.2) mmol/L 08/14/16 08/14/16 Range/Units 17:53 11:24 WBC (4.8-10.8) K/uL RBC (4.40-5.90) Mil/uL Hgb (12.0-18.0) g/dL Hct (35.0-51.0) % MCV (80.0-94.0) fL MCH (27.0-31.0) pg MCHC (33.0-37.0) g/dL RDW (11.5-14.5) % Plt Count (130-400) K/uL MPV (7.2-11.7) fL Neut % (Auto) (50.0-75.0) % Lymph % (Auto) (20.0-40.0) % [place] % (Auto) (0.0-10.0) % Eos % (Auto) (0.0-4.0) % Baso % (Auto) (0.0-2.0) % Neut # (1.8-7.0) K/uL Lymph # (1.0-4.3) K/uL [place] # (0.0-0.8) K/uL Eos # (0.0-0.7) K/uL Baso # (0.0-0.2) K/uL PT (9.7-12.2) SECONDS INR APTT (21-34) SECONDS Puncture Site pCO2 (35-45) mm/Hg pO2 (80-100) mm/Hg HCO3 (21-28) mmol/L ABG pH (7.35-7.45) ABG Total CO2 (22-28) mmol/L ABG O2 Saturation (95-98) % ABG Base Excess (-2.0-3.0) mmol/L David Test ABG Potassium (3.6-5.2) mmol/L A-a O2 Difference mm/Hg Respiratory Index Sodium (132-148) mmol/l Chloride (98-107) mmol/L Glucose (75-110) mg/dl Lactate (0.7-2.1) mmol/L Mechanical Rate FiO2 % Tidal Volume PEEP Potassium (3.6-5.2) mmol/L Carbon Dioxide (22-30) mmol/L Anion Gap (10-20) BUN (9-20) mg/dL Creatinine (0.8-1.5) MG/DL Est GFR ( Amer) Est GFR (Non-Af Amer) POC Glucose (mg/dL) 179 H 237 H (65-110) mg/dL Random Glucose (75-110) mg/dL Calcium (8.6-10.4) mg/dl Phosphorus (2.5-4.5) mg/dL Magnesium (1.6-2.3) mg/dL Total Bilirubin (0.2-1.3) mg/dL AST (17-59) U/L ALT (21-72) U/L Alkaline Phosphatase (38-126) U/L Total Protein (6.3-8.3) g/dL Albumin (3.5-5.0) g/dL Globulin (2.2-3.9) gm/dL Albumin/Globulin Ratio (1.0-2.1) Arterial Blood Potassium (3.6-5.2) mmol/L Laboratory Results - last 24 hr 08/14/16 08/14/16 08/14/16 11:24 17:53 23:22 WBC RBC Hgb Hct MCV MCH MCHC RDW Plt Count MPV Neut % (Auto) Lymph % (Auto) [place] % (Auto) Eos % (Auto) Baso % (Auto) Neut # Lymph # [place] # Eos # Baso # PT INR APTT Puncture Site pCO2 pO2 HCO3 ABG pH ABG Total CO2 ABG O2 Saturation ABG Base Excess David Test ABG Potassium A-a O2 Difference Respiratory Index Sodium Chloride Glucose Lactate Mechanical Rate FiO2 Tidal Volume PEEP Potassium Carbon Dioxide Anion Gap BUN Creatinine Est GFR ( Amer) Est GFR (Non-Af Amer) POC Glucose (mg/dL) 237 H 179 H 154 H Random Glucose Calcium Phosphorus Magnesium Total Bilirubin AST ALT Alkaline Phosphatase Total Protein Albumin Globulin Albumin/Globulin Ratio Arterial Blood Potassium 08/15/16 08/15/16 08/15/16 05:36 05:56 06:23 WBC 11.9 H RBC 3.57 L Hgb 9.2 L Hct 28.6 L MCV 80.1 MCH 25.6 L MCHC 32.0 L RDW 13.4 Plt Count 398 MPV 9.0 Neut % (Auto) 71.7 Lymph % (Auto) 15.5 L [place] % (Auto) 9.4 Eos % (Auto) 2.7 Baso % (Auto) 0.7 Neut # 8.6 H Lymph # 1.8 [place] # 1.1 H Eos # 0.3 Baso # 0.1 PT INR APTT Puncture Site Lr pCO2 33 L pO2 110 H HCO3 28.3 H ABG pH 7.52 H ABG Total CO2 27.9 ABG O2 Saturation 99.6 H ABG Base Excess 4.3 H David Test Pos ABG Potassium 3.9 A-a O2 Difference 63.0 Respiratory Index 0.6 Sodium 139.0 Chloride 110.0 H Glucose 115 H Lactate 1.5 Mechanical Rate 16 FiO2 30.0 Tidal Volume 450 PEEP 5 Potassium Carbon Dioxide Anion Gap BUN Creatinine Est GFR ( Amer) Est GFR (Non-Af Amer) POC Glucose (mg/dL) 135 H Random Glucose Calcium Phosphorus Magnesium Total Bilirubin AST ALT Alkaline Phosphatase Total Protein Albumin Globulin Albumin/Globulin Ratio Arterial Blood Potassium 3.9 08/15/16 08/15/16 06:23 06:23 WBC RBC Hgb Hct MCV MCH MCHC RDW Plt Count MPV Neut % (Auto) Lymph % (Auto) [place] % (Auto) Eos % (Auto) Baso % (Auto) Neut # Lymph # [place] # Eos # Baso # PT 12.3 H INR 1.1 APTT 29 Puncture Site pCO2 pO2 HCO3 ABG pH ABG Total CO2 ABG O2 Saturation ABG Base Excess David Test ABG Potassium A-a O2 Difference Respiratory Index Sodium 135 Chloride 101 Glucose Lactate Mechanical Rate FiO2 Tidal Volume PEEP Potassium 3.9 Carbon Dioxide 28 Anion Gap 10 BUN 12 Creatinine 0.5 L Est GFR ( Amer) > 60 Est GFR (Non-Af Amer) > 60 POC Glucose (mg/dL) Random Glucose 112 H Calcium 8.0 L Phosphorus 3.1 Magnesium 2.1 Total Bilirubin 0.5 AST 44 ALT 66 Alkaline Phosphatase 199 H Total Protein 5.7 L Albumin 2.8 L Globulin 3.0 Albumin/Globulin Ratio 0.9 L Arterial Blood Potassium Fingerstick Blood Sugar Results: 135 Review of Systems - Review of Systems Systems not reviewed;Unavailable: Intubated Critical Care Progress Note - Ventilator Checklist Head of Bed 30 Degrees: Yes PUD Prophalyxis: Yes DVT Prophylaxis: Yes - Vent Settings MODE:: PRVC TIDAL VOLUME:: 400 RESP RATE:: 16 FIO2:: 30 PEEP:: 5 - Extremities/Vascular Does the Patient have a Central Venous Catheter?: Yes Insertion Site: PICC Does the Patient need a Central Venous Catheter?: Yes Does the Patient have a Devlin Catheter?: Yes Does the Patient need a Devlin Catheter?: Yes Catheter Insertion Criteria: Patient requires prolonged immobilization - Prophylaxis GI Prophylaxis GI: Pepsid - Prophylaxis DVT Prophylaxis DVT: Jose Blackwood Assessment/Plan (1) Cerebral hemorrhage Current Visit: Yes Status: Acute (2) Subdural hemorrhage following injury Current Visit: Yes Status: Acute Priority: High - Assessment and Plan (Free Text) Plan: Patient Status: Stable s/p craniotomy. Intubated and Sedated. Plan for trach today with Dr. Levin Neuro: -intubated and sedated -Amatadine 100mg BID -Methylphenidate 5mg qAM -brainstem reflexes intact -POD #14 s/p craniotomy with Dr. Bolden -Dr. Bonner following Imaging: : 08/13/16 CT Head- Right cerebral convexity subdural, unchanged. Status post right parietal craniotomy. No parenchymal hemorrhage. Minimal midline shift, 1- 2 mm, unchanged. Few bubbles of residual extra-axial air, decreased. No evidence of acute hemorrhage. : 08/12/16 CT Head- Right cerebral convexity subdural, unchanged. Status post right parietal craniotomy. No parenchymal hemorrhage. Minimal midline shift, 1- 2 mm, unchanged. Few bubbles of residual extra-axial air, decreased. No evidence of acute hemorrhage. : 08/10/16 CT Head- Status post removal right-sided subdural drainage catheter. Small residual mixed attenuation subdural collection with diminished amount of subdural air. Persistent mild mass effect with compressive effects on the right cerebral hemisphere as described. Minimal [id number] midline shift. Dysconjugate gaze and/or strabismus. 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 Status post right-sided cataract surgery. : 08/07/16 CT Head- Status post drainage of right subdural hematoma. A drainage catheter is seen in the extra-axial space. There is air and fluid in the sub dural space with an average thickness of 9 mm. No change : 08/06/16 CT Head- Status post surgical intervention, placement of drainage catheter into the extra-axial space at the site of prior subdural hematoma edema , mass effect and midline shift have improved considerably. No new or significant findings identified : 08/04/16 CT Head- Acute extra-axial hemorrhage with blood layering in the extra-axial space. Increase in sulcal effacement, mass effect and midline shift. There is no evidence of herniation. This follows removal of the surgical drain identified previously. : 08/02/16 CT Head- Satisfactory postoperative status following craniotomy, evacuation of large extra-axial fluid collection on the right. Greater details are provided above. No new intra-axial abnormalities. Improved edema, mass effect. No evidence of acute infarction. : 07/30/16 CT Head- Large right acute extra-axial hemorrhage with severe mass effect and midline shift. Cardiovascular: -Hemodynamically stable -PICC Line for access Pulmonary: -Daily CXR/ABG -General Surgery Consult (Dr. Levin) for trach placement today -Intubated- PRVC : TV- 400mL : rate- 16/min : PEEP- 5cmH2O : FiO2- 30% -Imaging : 08/14/16 CXR- Lines and tubes in stable position. Mild venous congestion. Probable external device projecting over the left lower kate thorax and right lateral upper kate thorax. Mild cardiomegaly. : 08/13/16 CXR- Endotracheal tube terminates approximately 2.1 cm above the astrid. Nasogastric tube extends expected location of the stomach. Right-sided PICC terminates at the expected location of the cavoatrial junction. : 08/13/16 CXR- ET tube tip at tracheal astrid and should be withdrawn several cm. Otherwise no significant change. : 08/12/16 CXR- In situ ETT and NGT as above. Mild bibasilar atelectasis. Probable calcified pleural plaque right kate diaphragm : 08/12/16 CXR- Interval removal ETT. NGT remains in place as above. Mild bibasilar atelectasis. . Questionable pleural base calcification right hemidiaphragm. : 08/10/16 CXR- In situ ETT, tip of which lies approximately 4.28 cm above astrid. NGT is present, the tip of which is coiled in the left upper quadrant of the abdomen likely within the fundus region of the stomach. Low lung volumes with mild crowded bronchovascular markings and mild bibasilar atelectasis. : 08/09/16 CXR- Lines and tubes in stable position. Patchy increased markings at the left lung base suggestive for atelectasis and or infiltrate with questionable trace left pleural effusion. -ABG : 08/15/16- CO2= 33 / O2= 110 / HCO3= 28.3 / pH= 7.52 : 08/14/16- CO2= 30 / O2= 105 / HCO3= 24.3 / pH= 7.47 : 08/13/16- CO2= 30 / O2= 176 / HCO3= 20.7 / pH= 7.40 : 08/12/16- CO2= 29 / O2= 136 / HCO3= 19.5 / pH= 7.38 : 08/12/16- CO2= 30 / O2= 85 / HCO3= 21.7 / pH= 7.42 : 08/11/16- CO2= 30 / O2= 104 / HCO3= 13.0 / pH= 7.45 : 08/10/16- CO2= 38 / O2= 94 / HCO3= 34.1 / pH= 7.57 : 08/09/16- CO2= 29 / O2= 203 / HCO3= 25.3 / pH= 7.51 Gastrointestinal: -Tube Feeds (isosource 1.5) 40ml/hr- HOLD currently for OR today, will resume following trach placement -GI Consult (Dr. Peters) for PEG tube placement Hematology: -No acute issues Endocrine: -Novolin Sliding Scale Renal: -Mixed Alkalosis (respiratory > metabolic) : vent tidal volume decreased from 450mL to 400mL : will monitor with daily ABG Musculoskeletal: -No issues Genitourinary: -08/12/16 Urine Culture (+) for ESBL E.Coli -Primaxin 500mg IV q6- Day 2 Infectious Disease: -Leukocytosis- improving- 2 to UTI with ESBL E.Coli -Vancomycin 1g IV q12- Day 3 -Primaxin 500mg IV q6- Day 1 GI Prophylaxis: Pepcid 20mg PO daily DVT Prophylaxis: SCDs Case Discussed with Dr. Quoc Ceballos PGY1 - Date & Time Date: 08/15/16 Time: 11:04 <Justino Kumari - Last Filed: 08/15/16 18:00> CCU Subjective - Physician Review Critical Care Time Spent (in minutes): 35 CCU Objective - Vital Signs / Intake & Output Vital Signs (Last 4 hours): Vital Signs Temp Pulse Resp BP Pulse Ox 08/15/16 17:00 71 16 97 08/15/16 16:56 72 17 133/68 97 08/15/16 16:55 71 16 96 08/15/16 16:54 71 22 128/68 96 08/15/16 16:44 71 15 126/68 95 08/15/16 16:34 71 16 140/67 95 08/15/16 16:25 72 20 139/60 94 L 08/15/16 16:14 73 17 138/80 94 L 08/15/16 16:04 71 24 142/88 94 L 08/15/16 16:01 70 20 142/100 H 92 L 08/15/16 16:00 98.5 F 70 14 92 L 08/15/16 15:54 93 H 28 H 143/111 H 91 L 08/15/16 15:48 107 H 18 224/99 H 94 L 08/15/16 15:32 95 H 17 182/91 H 98 08/15/16 15:30 89 19 100 08/15/16 14:23 86 151/67 H 99 08/15/16 14:00 80 17 99 Intake and Output (Last 8hrs): Intake & Output 08/15/16 08/15/16 08/15/16 06:59 14:59 22:59 Intake Total 1341.6 1091.6 414.4 Output Total 500 200 100 Balance 841.6 891.6 314.4 Weight 178 lb 9.191 oz Intake: IV 100 100 Intake, IV Amount 841.6 991.6 314.4 Right PICC 800 950 300 Right Proximal Port PICC 41.6 41.6 14.4 Oral 100 Tube Feeding 400 0 0 Output: Urine 500 200 100 Condom 500 200 100 Stool 0 Other: # Voids Condom 0 0 # Bowel Movements 0 0 - Medications Active Medications: Active Medications Generic Name Dose Route Start Last Admin Trade Name Freq PRN Reason Stop Dose Admin Acetaminophen 650 mg 08/12/16 10:00 08/14/16 23:17 Tylenol 650mg/20.3ml Solution Ud NG 650 mg Q6 PRN Administration Fever >100.4 F Amantadine HCl 100 mg 08/14/16 18:00 08/15/16 17:48 Amantadine 100 Mg Cap PO 100 mg BID GORDO Administration Famotidine 20 mg 08/12/16 10:00 08/15/16 09:37 Pepcid PO 20 mg DAILY GORDO Administration Fluticasone Propionate 1 spr 08/11/16 18:00 08/15/16 17:49 Flonase BO 1 spray BID GORDO Administration Home Med 1 drop 08/07/16 18:00 08/15/16 17:49 Patient's Own Drops OS 1 drop BID GORDO Administration Vancomycin HCl 1,000 mg/ 250 mls @ 166.6 mls/hr 08/12/16 09:00 08/15/16 08:28 Sodium Chloride IVPB 166.6 mls/hr Q12H GORDO Administration Propofol 1,000 mg in 100 mls @ 2.313 mls/hr 08/12/16 11:52 08/15/16 16:04 Diprivan IV 10 mcg/kg/min .Q24H PRN 4.627 mls/hr TITRATE PER MD ORDER Administration Protocol 5 MCG/KG/MIN Imipenem/Cilastatin Sodium 500 100 mls @ 100 mls/hr 08/14/16 12:00 08/15/16 17:48 mg/ Sodium Chloride IVPB 100 mls/hr Q6H GORDO Administration Sodium Chloride 1,000 mls @ 100 mls/hr 08/14/16 16:35 08/15/16 13:39 Sodium Chloride 0.9% IV Not Given .Q10H [facility] Insulin Human Regular 0 unit 07/31/16 12:00 08/15/16 17:52 Novolin R SC Not Given Q6H [facility] Protocol Latanoprost 0 ml 07/31/16 22:00 08/14/16 21:42 Xalatan Opht OD 2.5 ml HS GORDO Administration Lisinopril 10 mg 08/15/16 16:35 08/15/16 17:43 Zestril PO Not Given DAILY GORDO Methylphenidate HCl 5 mg 08/15/16 10:00 08/15/16 09:38 Ritalin PO 5 mg QAM GORDO Administration Senna/Docusate Sodium 1 tab 08/11/16 22:00 08/14/16 21:40 Senokot S 50 Mg-8.6 Mg PO 1 tab HS G[facility] Administration Sennosides 8.6 mg 08/08/16 00:43 08/15/16 17:48 Senokot Tab NG 8.6 mg BID G[facility] Administration Timolol Maleate 0 drop 07/31/16 11:15 08/15/16 09:37 Timoptic 0.5% Ophth Soln OD 1 drop DAILY GORDO Administration - Patient Studies Lab Studies: Microbiology Studies 08/12/16 17:52 Gram Stain - Final Trachasp Sputum Culture - Final Yeast Species 08/12/16 06:45 Blood Culture - Preliminary Blood-Venous NO GROWTH AFTER 3 DAYS 08/12/16 06:15 Blood Culture - Preliminary Blood-Venous NO GROWTH AFTER 3 DAYS Lab Studies 08/15/16 08/15/16 08/15/16 Range/Units 12:00 06:23 06:23 WBC (4.8-10.8) K/uL RBC (4.40-5.90) Mil/uL Hgb (12.0-18.0) g/dL Hct (35.0-51.0) % MCV (80.0-94.0) fL MCH (27.0-31.0) pg MCHC (33.0-37.0) g/dL RDW (11.5-14.5) % Plt Count (130-400) K/uL MPV (7.2-11.7) fL Neut % (Auto) (50.0-75.0) % Lymph % (Auto) (20.0-40.0) % [place] % (Auto) (0.0-10.0) % Eos % (Auto) (0.0-4.0) % Baso % (Auto) (0.0-2.0) % Neut # (1.8-7.0) K/uL Lymph # (1.0-4.3) K/uL [place] # (0.0-0.8) K/uL Eos # (0.0-0.7) K/uL Baso # (0.0-0.2) K/uL PT 12.3 H (9.7-12.2) SECONDS INR 1.1 APTT 29 (21-34) SECONDS Puncture Site pCO2 (35-45) mm/Hg pO2 (80-100) mm/Hg HCO3 (21-28) mmol/L ABG pH (7.35-7.45) ABG Total CO2 (22-28) mmol/L ABG O2 Saturation (95-98) % ABG Base Excess (-2.0-3.0) mmol/L David Test ABG Potassium (3.6-5.2) mmol/L A-a O2 Difference mm/Hg Respiratory Index Sodium 135 (132-148) mmol/l Chloride 101 (98-107) mmol/L Glucose (75-110) mg/dl Lactate (0.7-2.1) mmol/L Mechanical Rate FiO2 % Tidal Volume PEEP Potassium 3.9 (3.6-5.2) mmol/L Carbon Dioxide 28 (22-30) mmol/L Anion Gap 10 (10-20) BUN 12 (9-20) mg/dL Creatinine 0.5 L (0.8-1.5) MG/DL Est GFR ( Amer) > 60 Est GFR (Non-Af Amer) > 60 POC Glucose (mg/dL) 121 H (65-110) mg/dL Random Glucose 112 H (75-110) mg/dL Calcium 8.0 L (8.6-10.4) mg/dl Phosphorus 3.1 (2.5-4.5) mg/dL Magnesium 2.1 (1.6-2.3) mg/dL Total Bilirubin 0.5 (0.2-1.3) mg/dL AST 44 (17-59) U/L ALT 66 (21-72) U/L Alkaline Phosphatase 199 H (38-126) U/L Total Protein 5.7 L (6.3-8.3) g/dL Albumin 2.8 L (3.5-5.0) g/dL Globulin 3.0 (2.2-3.9) gm/dL Albumin/Globulin Ratio 0.9 L (1.0-2.1) Arterial Blood Potassium (3.6-5.2) mmol/L 08/15/16 08/15/16 08/15/16 Range/Units 06:23 05:56 05:36 WBC 11.9 H (4.8-10.8) K/uL RBC 3.57 L (4.40-5.90) Mil/uL Hgb 9.2 L (12.0-18.0) g/dL Hct 28.6 L (35.0-51.0) % MCV 80.1 (80.0-94.0) fL MCH 25.6 L (27.0-31.0) pg MCHC 32.0 L (33.0-37.0) g/dL RDW 13.4 (11.5-14.5) % Plt Count 398 (130-400) K/uL MPV 9.0 (7.2-11.7) fL Neut % (Auto) 71.7 (50.0-75.0) % Lymph % (Auto) 15.5 L (20.0-40.0) % [place] % (Auto) 9.4 (0.0-10.0) % Eos % (Auto) 2.7 (0.0-4.0) % Baso % (Auto) 0.7 (0.0-2.0) % Neut # 8.6 H (1.8-7.0) K/uL Lymph # 1.8 (1.0-4.3) K/uL [place] # 1.1 H (0.0-0.8) K/uL Eos # 0.3 (0.0-0.7) K/uL Baso # 0.1 (0.0-0.2) K/uL PT (9.7-12.2) SECONDS INR APTT (21-34) SECONDS Puncture Site Lr pCO2 33 L (35-45) mm/Hg pO2 110 H (80-100) mm/Hg HCO3 28.3 H (21-28) mmol/L ABG pH 7.52 H (7.35-7.45) ABG Total CO2 27.9 (22-28) mmol/L ABG O2 Saturation 99.6 H (95-98) % ABG Base Excess 4.3 H (-2.0-3.0) mmol/L David Test Pos ABG Potassium 3.9 (3.6-5.2) mmol/L A-a O2 Difference 63.0 mm/Hg Respiratory Index 0.6 Sodium 139.0 (132-148) mmol/l Chloride 110.0 H (98-107) mmol/L Glucose 115 H (75-110) mg/dl Lactate 1.5 (0.7-2.1) mmol/L Mechanical Rate 16 FiO2 30.0 % Tidal Volume 450 PEEP 5 Potassium (3.6-5.2) mmol/L Carbon Dioxide (22-30) mmol/L Anion Gap (10-20) BUN (9-20) mg/dL Creatinine (0.8-1.5) MG/DL Est GFR ( Amer) Est GFR (Non-Af Amer) POC Glucose (mg/dL) 135 H (65-110) mg/dL Random Glucose (75-110) mg/dL Calcium (8.6-10.4) mg/dl Phosphorus (2.5-4.5) mg/dL Magnesium (1.6-2.3) mg/dL Total Bilirubin (0.2-1.3) mg/dL AST (17-59) U/L ALT (21-72) U/L Alkaline Phosphatase (38-126) U/L Total Protein (6.3-8.3) g/dL Albumin (3.5-5.0) g/dL Globulin (2.2-3.9) gm/dL Albumin/Globulin Ratio (1.0-2.1) Arterial Blood Potassium 3.9 (3.6-5.2) mmol/L 08/14/16 08/14/16 Range/Units 23:22 17:53 WBC (4.8-10.8) K/uL RBC (4.40-5.90) Mil/uL Hgb (12.0-18.0) g/dL Hct (35.0-51.0) % MCV (80.0-94.0) fL MCH (27.0-31.0) pg MCHC (33.0-37.0) g/dL RDW (11.5-14.5) % Plt Count (130-400) K/uL MPV (7.2-11.7) fL Neut % (Auto) (50.0-75.0) % Lymph % (Auto) (20.0-40.0) % [place] % (Auto) (0.0-10.0) % Eos % (Auto) (0.0-4.0) % Baso % (Auto) (0.0-2.0) % Neut # (1.8-7.0) K/uL Lymph # (1.0-4.3) K/uL [place] # (0.0-0.8) K/uL Eos # (0.0-0.7) K/uL Baso # (0.0-0.2) K/uL PT (9.7-12.2) SECONDS INR APTT (21-34) SECONDS Puncture Site pCO2 (35-45) mm/Hg pO2 (80-100) mm/Hg HCO3 (21-28) mmol/L ABG pH (7.35-7.45) ABG Total CO2 (22-28) mmol/L ABG O2 Saturation (95-98) % ABG Base Excess (-2.0-3.0) mmol/L David Test ABG Potassium (3.6-5.2) mmol/L A-a O2 Difference mm/Hg Respiratory Index Sodium (132-148) mmol/l Chloride (98-107) mmol/L Glucose (75-110) mg/dl Lactate (0.7-2.1) mmol/L Mechanical Rate FiO2 % Tidal Volume PEEP Potassium (3.6-5.2) mmol/L Carbon Dioxide (22-30) mmol/L Anion Gap (10-20) BUN (9-20) mg/dL Creatinine (0.8-1.5) MG/DL Est GFR ( Amer) Est GFR (Non-Af Amer) POC Glucose (mg/dL) 154 H 179 H (65-110) mg/dL Random Glucose (75-110) mg/dL Calcium (8.6-10.4) mg/dl Phosphorus (2.5-4.5) mg/dL Magnesium (1.6-2.3) mg/dL Total Bilirubin (0.2-1.3) mg/dL AST (17-59) U/L ALT (21-72) U/L Alkaline Phosphatase (38-126) U/L Total Protein (6.3-8.3) g/dL Albumin (3.5-5.0) g/dL Globulin (2.2-3.9) gm/dL Albumin/Globulin Ratio (1.0-2.1) Arterial Blood Potassium (3.6-5.2) mmol/L Laboratory Results - last 24 hr 08/14/16 08/14/16 08/15/16 17:53 23:22 05:36 WBC RBC Hgb Hct MCV MCH MCHC RDW Plt Count MPV Neut % (Auto) Lymph % (Auto) [place] % (Auto) Eos % (Auto) Baso % (Auto) Neut # Lymph # [place] # Eos # Baso # PT INR APTT Puncture Site Lr pCO2 33 L pO2 110 H HCO3 28.3 H ABG pH 7.52 H ABG Total CO2 27.9 ABG O2 Saturation 99.6 H ABG Base Excess 4.3 H David Test Pos ABG Potassium 3.9 A-a O2 Difference 63.0 Respiratory Index 0.6 Sodium 139.0 Chloride 110.0 H Glucose 115 H Lactate 1.5 Mechanical Rate 16 FiO2 30.0 Tidal Volume 450 PEEP 5 Potassium Carbon Dioxide Anion Gap BUN Creatinine Est GFR ( Amer) Est GFR (Non-Af Amer) POC Glucose (mg/dL) 179 H 154 H Random Glucose Calcium Phosphorus Magnesium Total Bilirubin AST ALT Alkaline Phosphatase Total Protein Albumin Globulin Albumin/Globulin Ratio Arterial Blood Potassium 3.9 08/15/16 08/15/16 08/15/16 05:56 06:23 06:23 WBC 11.9 H RBC 3.57 L Hgb 9.2 L Hct 28.6 L MCV 80.1 MCH 25.6 L MCHC 32.0 L RDW 13.4 Plt Count 398 MPV 9.0 Neut % (Auto) 71.7 Lymph % (Auto) 15.5 L [place] % (Auto) 9.4 Eos % (Auto) 2.7 Baso % (Auto) 0.7 Neut # 8.6 H Lymph # 1.8 [place] # 1.1 H Eos # 0.3 Baso # 0.1 PT 12.3 H INR 1.1 APTT 29 Puncture Site pCO2 pO2 HCO3 ABG pH ABG Total CO2 ABG O2 Saturation ABG Base Excess David Test ABG Potassium A-a O2 Difference Respiratory Index Sodium Chloride Glucose Lactate Mechanical Rate FiO2 Tidal Volume PEEP Potassium Carbon Dioxide Anion Gap BUN Creatinine Est GFR ( Amer) Est GFR (Non-Af Amer) POC Glucose (mg/dL) 135 H Random Glucose Calcium Phosphorus Magnesium Total Bilirubin AST ALT Alkaline Phosphatase Total Protein Albumin Globulin Albumin/Globulin Ratio Arterial Blood Potassium 08/15/16 08/15/16 06:23 12:00 WBC RBC Hgb Hct MCV MCH MCHC RDW Plt Count MPV Neut % (Auto) Lymph % (Auto) [place] % (Auto) Eos % (Auto) Baso % (Auto) Neut # Lymph # [place] # Eos # Baso # PT INR APTT Puncture Site pCO2 pO2 HCO3 ABG pH ABG Total CO2 ABG O2 Saturation ABG Base Excess David Test ABG Potassium A-a O2 Difference Respiratory Index Sodium 135 Chloride 101 Glucose Lactate Mechanical Rate FiO2 Tidal Volume PEEP Potassium 3.9 Carbon Dioxide 28 Anion Gap 10 BUN 12 Creatinine 0.5 L Est GFR ( Amer) > 60 Est GFR (Non-Af Amer) > 60 POC Glucose (mg/dL) 121 H Random Glucose 112 H Calcium 8.0 L Phosphorus 3.1 Magnesium 2.1 Total Bilirubin 0.5 AST 44 ALT 66 Alkaline Phosphatase 199 H Total Protein 5.7 L Albumin 2.8 L Globulin 3.0 Albumin/Globulin Ratio 0.9 L Arterial Blood Potassium Attending/Attestation - Attestation I have personally seen and examined this patient.: Yes I have fully participated in the care of the patient.: Yes I have reviewed all pertinent clinical information: Yes Notes (Text): 08/15/16 18:00 Patient seen and examined in the intensive care unit. Case discussed with house staff in the morning rounds. Status post tracheostomy Patient more awake and responsive Continue antibiotics for urinary tract infection Resume feeding
--- NOTE | 2016-08-15 11:21 | CP.PCM.PN ---
Subjective - Date & Time of Evaluation Date of Evaluation: 08/15/16 Time of Evaluation: 10:00 - Subjective Subjective: Mr. Renee Lopez was seen and examined today in the ICU. He was in NAD. Off sedation, he was more active today and interactive with his son. He answered questions and was following simple commands. Moved all extremities. Objective - Vital Signs/Intake and Output Vital Signs (last 24 hours): Temp Pulse Resp BP Pulse Ox 99.8 F H 91 H 20 167/74 H 100 08/15/16 04:00 08/15/16 07:23 08/15/16 07:23 08/15/16 07:23 08/15/16 07:23 Intake and Output: 08/15/16 08/15/16 06:59 18:59 Intake Total 2062.4 105.2 Output Total 500 Balance 1562.4 105.2 - Medications Medications: Current Medications Acetaminophen (Tylenol 650mg/20.3ml Solution Ud) 650 mg NG Q6 PRN PRN Reason: Fever >100.4 F Last Admin: 08/14/16 23:17 Dose: 650 mg Amantadine HCl (Amantadine 100 Mg Cap) 100 mg PO BID [facility] Last Admin: 08/15/16 09:38 Dose: 100 mg Famotidine (Pepcid) 20 mg PO DAILY [facility] Last Admin: 08/15/16 09:37 Dose: 20 mg Fluticasone Propionate (Flonase) 1 spr BO BID [facility] Last Admin: 08/15/16 09:36 Dose: 1 spray Home Med (Patient's Own Drops) 1 drop OS BID [facility] Last Admin: 08/15/16 09:39 Dose: 1 drop Vancomycin HCl 1,000 mg/ (Sodium Chloride) 250 mls @ 166.6 mls/hr IVPB Q12H [facility] Last Admin: 08/15/16 08:28 Dose: 166.6 mls/hr Propofol (Diprivan) 1,000 mg in 100 mls @ 2.313 mls/hr IV .Q24H PRN; Protocol; 5 MCG/KG/MIN PRN Reason: TITRATE PER MD ORDER Last Admin: 08/15/16 06:17 Dose: 11.23 mcg/kg/min, 5.2 mls/hr Imipenem/Cilastatin Sodium 500 (mg/ Sodium Chloride) 100 mls @ 100 mls/hr IVPB Q6H [facility] Last Admin: 08/15/16 05:04 Dose: 100 mls/hr Sodium Chloride (Sodium Chloride 0.9%) 1,000 mls @ 100 mls/hr IV .Q10H [facility] Last Admin: 08/15/16 05:03 Dose: 100 mls/hr Insulin Human Regular (Novolin R) 0 unit SC Q6H [facility] PRN Reason: Protocol Last Admin: 08/15/16 06:19 Dose: Not Given Latanoprost (Xalatan Opht) 0 ml OD HS [facility] Last Admin: 08/14/16 21:42 Dose: 2.5 ml Lisinopril (Zestril) 10 mg PO DAILY [facility] Methylphenidate HCl (Ritalin) 5 mg PO QAM [facility] Last Admin: 08/15/16 09:38 Dose: 5 mg Senna/Docusate Sodium (Senokot S 50 Mg-8.6 Mg) 1 tab PO HS [facility] Last Admin: 08/14/16 21:40 Dose: 1 tab Sennosides (Senokot Tab) 8.6 mg NG BID [facility] Last Admin: 08/15/16 09:38 Dose: 8.6 mg Timolol Maleate (Timoptic 0.5% Ophth Soln) 0 drop OD DAILY [facility] Last Admin: 08/15/16 09:37 Dose: 1 drop - Labs Labs: 08/15/16 06:23 08/15/16 06:23 PT 12.3 SECONDS (9.7-12.2) H 08/15/16 06:23 INR 1.1 08/15/16 06:23 APTT 29 SECONDS (21-34) 08/15/16 06:23 - Constitutional Appears: Confused - Respiratory Exam Additional comments: On ventilator, crackles in lung garcia, decreased breath sounds at the bases bilaterally - Cardiovascular Exam Cardiovascular Exam: +S1, +S2 - Neurological Exam Neurological Exam: Altered Neuro motor strength exam: Left Upper Extremity: 3, Right Upper Extremity: 3, Left Lower Extremity: 3, Right Lower Extremity: 3 Additional comments: 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 Could also be medication effect. Assessment and Plan (1) Subdural hemorrhage following injury Assessment & Plan: Continue stimulants. Plan for trach/PEG. After procedures, stop sedation and resume PT/OT. Status: Acute
--- NOTE | 2016-08-15 12:50 | CP.PCM.PN ---
Subjective - Date & Time of Evaluation Date of Evaluation: 08/15/16 Time of Evaluation: 12:45 - Subjective Subjective: Medical Attending Note Follow-up: Subdural hemorrhage, acute respiratory failure, ESBL+ UTI, Hypertension, Diabetes Patient seen and examined this morning with and uncle, Simba. Patient is awake, alert, following command, and responsive back in [place] while on low sedation. Patient is pending for trach this morning. Objective - Vital Signs/Intake and Output Vital Signs (last 24 hours): Temp Pulse Resp BP Pulse Ox 100.2 F H 86 19 144/70 100 08/15/16 08:00 08/15/16 11:23 08/15/16 11:23 08/15/16 11:23 08/15/16 11:23 Intake and Output: 08/15/16 08/15/16 06:59 18:59 Intake Total 2062.4 776.0 Output Total 500 200 Balance 1562.4 576.0 - Medications Medications: Current Medications Acetaminophen (Tylenol 650mg/20.3ml Solution Ud) 650 mg NG Q6 PRN PRN Reason: Fever >100.4 F Last Admin: 08/14/16 23:17 Dose: 650 mg Amantadine HCl (Amantadine 100 Mg Cap) 100 mg PO BID [facility] Last Admin: 08/15/16 09:38 Dose: 100 mg Famotidine (Pepcid) 20 mg PO DAILY [facility] Last Admin: 08/15/16 09:37 Dose: 20 mg Fluticasone Propionate (Flonase) 1 spr BO BID [facility] Last Admin: 08/15/16 09:36 Dose: 1 spray Home Med (Patient's Own Drops) 1 drop OS BID [facility] Last Admin: 08/15/16 09:39 Dose: 1 drop Vancomycin HCl 1,000 mg/ (Sodium Chloride) 250 mls @ 166.6 mls/hr IVPB Q12H [facility] Last Admin: 08/15/16 08:28 Dose: 166.6 mls/hr Propofol (Diprivan) 1,000 mg in 100 mls @ 2.313 mls/hr IV .Q24H PRN; Protocol; 5 MCG/KG/MIN PRN Reason: TITRATE PER MD ORDER Last Admin: 08/15/16 06:17 Dose: 11.23 mcg/kg/min, 5.2 mls/hr Imipenem/Cilastatin Sodium 500 (mg/ Sodium Chloride) 100 mls @ 100 mls/hr IVPB Q6H [facility] Last Admin: 08/15/16 12:09 Dose: 100 mls/hr Sodium Chloride (Sodium Chloride 0.9%) 1,000 mls @ 100 mls/hr IV .Q10H [facility] Last Admin: 08/15/16 05:03 Dose: 100 mls/hr Insulin Human Regular (Novolin R) 0 unit SC Q6H [facility] PRN Reason: Protocol Last Admin: 08/15/16 12:05 Dose: Not Given Latanoprost (Xalatan Opht) 0 ml OD HS [facility] Last Admin: 08/14/16 21:42 Dose: 2.5 ml Lisinopril (Zestril) 10 mg PO DAILY [facility] Methylphenidate HCl (Ritalin) 5 mg PO QAM [facility] Last Admin: 08/15/16 09:38 Dose: 5 mg Senna/Docusate Sodium (Senokot S 50 Mg-8.6 Mg) 1 tab PO [facility] Last Admin: 08/14/16 21:40 Dose: 1 tab Sennosides (Senokot Tab) 8.6 mg NG BID [facility] Last Admin: 08/15/16 09:38 Dose: 8.6 mg Timolol Maleate (Timoptic 0.5% Ophth Soln) 0 drop OD DAILY [facility] Last Admin: 08/15/16 09:37 Dose: 1 drop - Labs Labs: 08/15/16 06:23 08/15/16 06:23 PT 12.3 SECONDS (9.7-12.2) H 08/15/16 06:23 INR 1.1 08/15/16 06:23 APTT 29 SECONDS (21-34) 08/15/16 06:23 - Constitutional Appears: Older Than Stated Age - Head Exam Additional comments: dressing over the right part of head intubated NGT tube mittens Right PICC upper extremity Prevalons boots - Eye Exam Additional comments: left eye: medially adducted right eye: tracking laterally - ENT Exam ENT Exam: Mucous Membranes Dry - Respiratory Exam Respiratory Exam: NORMAL BREATHING PATTERN. absent: Decreased Breath Sounds Additional comments: intubated on vent - Cardiovascular Exam Cardiovascular Exam: REGULAR RHYTHM, +S1, +S2 - GI/Abdominal Exam GI & Abdominal Exam: Soft, Normal Bowel Sounds. absent: Distended, Firm, Guarding, Rigid, Tenderness, Hypoactive Bowel Sounds, Rebound - Neurological Exam Neurological Exam: Alert, Awake - Psychiatric Exam Psychiatric exam: Normal Mood - Skin Skin Exam: Dry, Intact, Normal Color, Warm Assessment and Plan (1) Cerebral hemorrhage Status: Acute (2) Hypertension Status: Chronic (3) Diabetes Status: Chronic (4) Leukocytosis Status: Acute (5) Urinary tract infection Status: Acute (6) ESBL (extended spectrum beta-lactamase) producing bacteria infection Status: Acute (7) Prophylactic measure Status: Acute - Assessment and Plan (Free Text) Assessment: (1) Cerebral hemorrhage Assessment & Plan: * Critical care: help appreciated * Neurosurgery: Dr. Bolden on board-->help appreciated * Neurology: Dr Bonner on board-->help appreciated * Head CT (07/30/16): CT Head without contrast: 1. The left orbit appears to be rotated 90 degrees to the right while the right orbit appears to be oriented normally. 2. 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 This results in severe mass effect on the underlying brain, including 1.4 cm of leftward midline shift and compression of the right lateral ventricle. Asymmetric enlargement of the right temporal horn suggestive of early entrapment. * Head CT (08/02/16): satisfactory postoperative status following craniotomy, evacuation of large extra-axial fluid collection on the right. No new intra- axial abnormalities. Improved edema, mass effect. No evidence of acute infarction. * Head CT (08/04/16) showed acute extra-axial hemorrhage with blood layering in the extra-axial space. Increase in sulcal effacement, mass effect and midline shift. There is no evidence of herniation. This follows removal of the surgical drain identified previously. * Head CT (08/06/16): status post surgical intervention, placement of drainage catheter into the extra-axial space at the site prior subdural hematoma edema, mass effect and midline shift have improved considerably. No new or significant findings identified. * Head CT (08/07/16): status post drainage of right subdural hematoma. Drainage catheter is nora in the extra axial space. Air and fluid in the usbdral space with an average thickeness of 9mm * Head CT (08/10/16): status post removal right sided subdural drainage catheter. Small residual mixed attenuation subdural collection with diminished amount of subdural air. Persistent mild mass effect with compressive effects on the right cerebral hemisphere. Minial right to left midline shift. Dysconjugate gaze and/ or strabismus. 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 status post right sided cataract surgery * Head CT (08/13/16): redemonstrated to small to medium sized hypodense of residual right sided subdural hematoma. Minmindal right to left midline shift. Previously noted small amount of subdural air on prior study has undegone further resoprtion. Persistent mild subjacent mass effect with compression of cerebral sulci and mild compression of right lateral ventricle. No evidence of obstructive hydrocephalus. * POD: s/p [place] hole and evacuation of subdural hemorrhage with [place] and David drain * POD s/p right frontotemporal craniotomy; evacuation of acute subdural drain present * Removal of drain on 08/03/16 * Keppra 500mg IVPB Q 12hours for seizure prophylaxis * Per neurosurgery, prefers patient off anticoagulation * continue Neurochecks * on low sedation; intubated on 08/12/16, on NS 100cc/hr * Recommended by Neurology, for Amantidine and Ritalin, and NS 100cc/hr Status: Acute (2) Acute Respiratory Failure Assessment & Plan: * Multiple intubation/Reintubations during hospitalization * Discussed with ICU, recommended for Trach today about 1-2pm * General Surgery (Dr. Levin) on board-->discussed with patient's nephew and daughter regarding surgery yesterday Status: Acute (3) Hypertension Assessment & Plan: * NS 100c cc/hr * Lisinopril 10mg PO daily * Monitor vitals signs Status: Chronic (4) Diabetes Assessment & Plan: * [id number]: 5.9 * Controlled * Accuchecks Q6 hours * Regular insulin sliding scale subq Q 6hours * on feedings Status: Chronic (5) ESBL+ UTI; Leukocytosis Assessment & Plan: * Blood cultures X2: negative thus far urine culture (08/12/16) * Elevated white count in 31-->24-->24-->14-->11.9 * D/C Cefepime 1 gram Q 12hour, started on Primaxin IV and Vancomycin 1g IV Q 12hours * Febrile, leukocytosis * UA: pyuria, hematuria, +esterase; urine culture: gram negative bebo pending speciation * Fever: on hypothermic blanket * Tmax: 100.5 (6) Prophylactic measure Assessment & Plan: * Neurosurgery prefers patient off anticoagulation per prior discussion with ICU * NGT tube * Pepcid 20mg PO daily * No benzos * Seizure prophylaxis * Intubated * low sedation * PICC line Status: Acute
--- NOTE | 2016-08-15 15:48 | PCM.SURG1 ---
Surgeon's Initial Post Op Note - Surgeon's Notes Surgeon: Poonam Blender Helper: Aileen Lora Pre-Operative Diagnosis: Respiratory failure, prolong intubation Operative Findings: n/a Post-Operative Diagnosis: Respiratoy failure Operation Performed: Percutaneous tracheostomy, bronchoscopy Specimen/Specimens Removed: n/a Estimated Blood Loss: EBL {In ML}: 5 Date of Surgery/Procedure: 08/15/16 Time of Surgery/Procedure: 14:30
[2016-08-15] MEDS ORDERED: Labetalol 25mg/5ml Syringe IV ONE (15:50)
[2016-08-15] MEDS ORDERED: Labetalol 25mg/5ml Syringe ONE (15:53)
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
--- NOTE | 2016-08-15 20:44 | OP ---
PROCEDURE DATE: 08/15/2016 PREOPERATIVE DIAGNOSES: 1. Vent dependent respiratory failure. 2. Intracranial hemorrhage, status post craniotomy. POSTOPERATIVE DIAGNOSES: 1. Vent dependent respiratory failure. 2. Intracranial hemorrhage, status post craniotomy. PROCEDURE PERFORMED: 1. Diagnostic bronchoscopy. 2. Percutaneous tracheostomy. SURGEON: David Levin MD. POWDER WORKER TNT: ARLET Arshad and Hermes Mena MD, PGY-1 resident. ANESTHESIA: General endotracheal tube anesthesia. ESTIMATED BLOOD LOSS: Around 5 mL. DRAIN: None PATHOLOGY: None. COMPLICATIONS: None. INTRAOPERATIVE FINDINGS: The patient had the secretions in the upper respiratory tract. The patient had no sign of pneumonia. The patient had hyperemic right and left bronchus as well as the segmenta l bronchus. INTRAOPERATIVE STEPS: This is a 75-year-old male who was recently operated for the craniotomy for in tracranial hemorrhage and the patient had vent dependent respiratory failure and the patient's family was consented for the percutaneous tracheostomy under bronchoscopic guidance and brought to the OR, placed in a patient bed. After induction of the anesthesia, the neck was prepped and draped in a usu al sterile fashion. Bronchoscopy was done completely and all secretions were suctioned out and under bronchoscopic guidance, the neck was prepped and draped, and a small 1 cm incision was made and unde r bronchoscopic guidance, a needle was placed, guidewire was placed, the tract was dilated and after gradual dilatation of the tract a #8 tracheostomy tube was placed and the balloon was inflated and th e tracheostomy was connected to the end tidal CO2 and there was good end tidal CO2 was detected on th e machine and after that the tracheostomy tube was fixed to the skin as well as to the neck and the d ry sterile dressing was applied. The patient tolerated the procedure well. The completion bronchosc opy was done through the tracheostomy, to rule out any bleeding and there was no bleeding identified and after that the patient was sent to the ICU for further care. David Levin MD cc: [id number] TT: 08/15/2016 20:43:18 jn
[2016-08-15] MEDS: Acetaminophen 650mg/20.3ml solution UD NG PRN (21:19)
[2016-08-15] MEDS: Docusate-Senna 50 mg-8.6 mg Tab PO SCH (21:20)
[2016-08-15] MEDS: Latanoprost 2.5 ml Opht Soln OD SCH (21:23)
[2016-08-16] MEDS: Propofol 10 mg/ml 1,000 MG/100 ML VIAL IV PRN (02:27)
--- NOTE | 2016-08-16 04:23 | CP.PCM.PN ---
<Miguel Lora D - Last Filed: 08/16/16 04:20> Subjective - Date & Time of Evaluation Date of Evaluation: 08/16/16 Time of Evaluation: 04:20 - Subjective Subjective: SURGERY PROGRESS NOTE FOR DR. PRADO 75M seen and examined bedside. Patient is is being ventilated via tracheostomy. Unresponsive. Objective - Vital Signs/Intake and Output Vital Signs (last 24 hours): Temp Pulse Resp BP Pulse Ox 99.7 F H 87 16 136/67 100 08/16/16 00:00 08/16/16 02:00 08/16/16 02:00 08/16/16 01:56 08/16/16 02:00 Intake and Output: 08/15/16 08/16/16 18:59 06:59 Intake Total 1740.6 1359.7 Output Total 300 550 Balance 1440.6 809.7 - Medications Medications: Current Medications Acetaminophen (Tylenol 650mg/20.3ml Solution Ud) 650 mg NG Q6 PRN PRN Reason: Fever >100.4 F Last Admin: 08/15/16 21:19 Dose: 650 mg Amantadine HCl (Amantadine 100 Mg Cap) 100 mg PO BID [facility] Last Admin: 08/15/16 17:48 Dose: 100 mg Famotidine (Pepcid) 20 mg PO DAILY [facility] [place] Last Admin: 08/15/16 09:37 Dose: 20 mg Fluticasone Propionate (Flonase) 1 spr BO BID [facility] [place] Last Admin: 08/15/16 17:49 Dose: 1 spray Home Med (Patient's Own Drops) 1 drop OS BID [facility] [place] Last Admin: 08/15/16 17:49 Dose: 1 drop Vancomycin HCl 1,000 mg/ (Sodium Chloride) 250 mls @ 166.6 mls/hr IVPB Q12H [facility] [place] Last Admin: 08/15/16 21:22 Dose: 166.6 mls/hr Propofol (Diprivan) 1,000 mg in 100 mls @ 2.313 mls/hr IV .Q24H PRN; Protocol; 5 MCG/KG/MIN PRN Reason: TITRATE PER MD ORDER Last Admin: 08/16/16 02:27 Dose: 20 mcg/kg/min, 9.253 mls/hr Imipenem/Cilastatin Sodium 500 (mg/ Sodium Chloride) 100 mls @ 100 mls/hr IVPB Q6H [facility] [place] Last Admin: 08/15/16 23:55 Dose: 100 mls/hr Sodium Chloride (Sodium Chloride 0.9%) 1,000 mls @ 100 mls/hr IV .Q10H [facility] [place] Last Admin: 08/15/16 23:53 Dose: 100 mls/hr Insulin Human Regular (Novolin R) 0 unit SC Q6H [facility] PRN Reason: Protocol Last Admin: 08/15/16 23:59 Dose: 2 unit Latanoprost (Xalatan Opht) 0 ml OD HS [facility] [place] Last Admin: 08/15/16 21:23 Dose: 2.5 ml Lisinopril (Zestril) 10 mg PO DAILY [facility] [place] Last Admin: 08/15/16 17:43 Dose: Not Given Methylphenidate HCl (Ritalin) 5 mg PO QAM [facility] [place] Last Admin: 08/15/16 09:38 Dose: 5 mg Senna/Docusate Sodium (Senokot S 50 Mg-8.6 Mg) 1 tab PO HS [facility] [place] Last Admin: 08/15/16 21:20 Dose: 1 tab Sennosides (Senokot Tab) 8.6 mg NG BID [facility] [place] Last Admin: 08/15/16 17:48 Dose: 8.6 mg Timolol Maleate (Timoptic 0.5% Ophth Soln) 0 drop OD DAILY [facility] [place] Last Admin: 08/15/16 09:37 Dose: 1 drop - Labs Labs: 08/15/16 06:23 08/15/16 06:23 PT 12.3 SECONDS (9.7-12.2) H 08/15/16 06:23 INR 1.1 08/15/16 06:23 APTT 29 SECONDS (21-34) 08/15/16 06:23 - Constitutional Appears: Other (ventilated via tracheostomy, unresponsive) - Respiratory Exam Respiratory Exam: Clear to Ausculation Bilateral Additional comments: tracheostomy in place, being ventilated - Cardiovascular Exam Cardiovascular Exam: REGULAR RHYTHM, +S1, +S2 - Neurological Exam Neurological Exam: absent: Alert, Awake Assessment and Plan - Assessment and Plan (Free Text) Assessment: 75M s/p percutaneous tracheostomy POD#1 Plan: - monitor surgical site - monitor trach placement - remove sutures POD#10 Further recs discuss with Dr. Poonam Lora, PGY1 <David Levin B - Last Filed: 08/19/16 22:05> Objective - Vital Signs/Intake and Output Vital Signs (last 24 hours): Temp Pulse Resp BP Pulse Ox 98.3 F 85 20 150/76 100 08/19/16 17:06 08/19/16 17:06 08/19/16 17:06 08/19/16 17:06 08/19/16 17:06 Intake and Output: 08/19/16 08/20/16 18:59 06:59 Intake Total 760 Balance 760 - Medications Medications: Current Medications Acetaminophen (Tylenol 650mg/20.3ml Solution Ud) 650 mg NG Q6 PRN PRN Reason: Fever >100.4 F Last Admin: 08/16/16 21:12 Dose: 650 mg Amantadine HCl (Amantadine 100 Mg Cap) 100 mg PO BID [facility] [place] Last Admin: 08/19/16 17:37 Dose: 100 mg Famotidine (Pepcid) 20 mg PO DAILY [facility] [place] Last Admin: 08/19/16 10:18 Dose: 20 mg Fluticasone Propionate (Flonase) 1 spr BO BID [facility] [place] Last Admin: 08/19/16 17:37 Dose: 1 spray Home Med (Patient's Own Drops) 1 drop OS BID [facility] [place] Last Admin: 08/19/16 17:38 Dose: 1 drop Imipenem/Cilastatin Sodium 500 (mg/ Sodium Chloride) 100 mls @ 100 mls/hr IVPB Q6H [facility] [place] Last Admin: 08/19/16 17:37 Dose: 100 mls/hr Insulin Human Regular (Novolin R) 0 unit SC Q6H [facility] PRN Reason: Protocol Last Admin: 08/19/16 18:04 Dose: Not Given Latanoprost (Xalatan Opht) 0 ml OD HS [facility] [place] Last Admin: 08/19/16 21:09 Dose: 2.5 ml Lisinopril (Zestril) 10 mg PO DAILY [facility] [place] Last Admin: 08/19/16 10:19 Dose: 10 mg Lorazepam (Ativan) 0.5 mg IVP Q6H PRN PRN Reason: Anxiety Last Admin: 08/19/16 21:09 Dose: 0.5 mg Methylphenidate HCl (Ritalin) 5 mg PO QAM [facility] [place] Last Admin: 08/19/16 10:18 Dose: 5 mg Senna/Docusate Sodium (Senokot S 50 Mg-8.6 Mg) 1 tab PO HS [facility] Last Admin: 08/19/16 21:10 Dose: 1 tab Sennosides (Senokot Tab) 8.6 mg NG BID [facility] Last Admin: 08/19/16 17:37 Dose: 8.6 mg Timolol Maleate (Timoptic 0.5% Ophth Soln) 0 drop OD DAILY [facility] Last Admin: 08/19/16 10:19 Dose: 1 drop - Labs Labs: 08/19/16 06:34 08/19/16 06:34 PT 12.4 SECONDS (9.7-12.2) H 08/18/16 06:26 INR 1.1 08/18/16 06:26 APTT 29 SECONDS (21-34) 08/18/16 06:26 Attending/Attestation - Attestation I have personally seen and examined this patient.: Yes I have fully participated in the care of the patient.: Yes I have reviewed all pertinent clinical information, including history, physical exam and plan: Yes Notes (Text): 08/19/16 22:04 Pt was seen and examined at bedside on 08/16/2016 Agree with above note and assessment
[2016-08-16 05:47] LABS: ABG ALLEN TEST POS; ABG MECHANICAL RATE 16; ATERIAL BLOOD GAS PEEP 5; DRAW SITE LR
[2016-08-16] MEDS: (Novolin R) Insulin Human Regular 100 units/ml vial SC SCH ×3 (06:37→18:02)
[2016-08-16 06:39] LABS: BASO # 0.1 K/uL (0.0-0.2); EOS # 0.3 K/uL (0.0-0.7)
[2016-08-16 06:49] LABS: INR 1.1
[2016-08-16 06:54] LABS: CHLORIDE 101 mmol/L (98-107); SODIUM 136 mmol/L (132-148); WHITE BLOOD COUNT 11.3 K/uL (4.8-10.8)
[2016-08-16 06:56] LABS: AST/SGOT 57 U/L (17-59); BILIRUBIN,TOTAL 0.6 mg/dL (0.2-1.3); CARBON DIOXIDE 25 mmol/L (22-30); GFR AFRICAN-AMERICAN > 60
[2016-08-16 06:57] LABS: ALB/GLOB RATIO 0.9 (1.0-2.1); ALKALINE PHOSPHATASE 182 U/L (38-126); ALT/SGPT 65 U/L (21-72); BASO % 0.8 % (0.0-2.0); BLOOD UREA NITROGEN 14 mg/dL (9-20); CALCIUM 7.9 mg/dl (8.6-10.4); EOS % 2.7 % (0.0-4.0); GLUCOSE,RANDOM 126 mg/dL (75-110); LYMPH # 1.8 K/uL (1.0-4.3); LYMPH % 15.9 % (20.0-40.0); MEAN CELL VOLUME 79.6 fL (80.0-94.0); MEAN CORPUSCULAR HEMOGLOBIN 26.3 pg (27.0-31.0); MEAN PLATELET VOLUME 8.7 fL (7.2-11.7); MONO # 1.2 K/uL (0.0-0.8); MONO % 10.2 % (0.0-10.0); NRBC % 0.1 % (0.0-2.0); PHOSPHOROUS 3.1 mg/dL (2.5-4.5); TOTAL PROTEIN 5.6 g/dL (6.3-8.3)
[2016-08-16 06:58] LABS: MAGNESIUM 2.1 mg/dL (1.6-2.3)
[2016-08-16 07:00] LABS: POTASSIUM 3.6 mmol/L (3.6-5.2)
[2016-08-16] MEDS: Fluticasone Nasal 50 mcg/Spray NAS SCH ×2 (09:43→17:50)
[2016-08-16] MEDS: [UNRECOGNIZED DRUG - OTHER] OS SCH ×2 (09:45→18:03)
[2016-08-16] MEDS: Dexmedetomidine Hydrochloride 200 MCG in Sodium Chloride 0.9% 48 ML IV PRN ×2 (11:24→17:45)
--- NOTE | 2016-08-16 13:35 | CP.CCUPN ---
<Daron Ceballos - Last Filed: 08/16/16 13:32> CCU Subjective - Physician Review Subjective (Free Text): 08/13/16 16:45 Patient seen and examined at the bedside. No acute events overnight. No acute distress. Nursing staff reports no issues. Re-intubated due to resp distress and SOB. Patient responsive to painful stimuli. Currently afebrile. Today on rounds, the patient's NS rate was decreaesed to 50ml/hr. The patient went for PICC placement (consent obtained over the phone with daughter). The patient right femoral TLC was removed at the bedside. 08/14/16 16:11 Patient seen and examined at the bedside. No acute events overnight. No acute distress. Nursing staff reports no issues. Intubated due to resp distress and SOB, PRVC TV 450, Rate 16, PEEP 5, FiO2 30%. Patient responsive to painful stimuli. Currently afebrile. Today on rounds, patient was started on amantadine and ritalin per Dr. Bonner's request. Patient was evaluated by GI and general surgery teams for PEG tube placement and trach respectively. The patient's urine culture returned ESBL resistant to cefepime. Primaxin was started. The patient's magnesium was also replaced. 08/15/16 10:58 Patient seen and examined at the bedside. No acute events overnight. No acute distress. Nursing staff reports no issues. Patient was febrile overnight 100.5 * at 23:17 and 00:00. T-max still 103.1 on 08/13/16 at 18:15. Patient remains on PRVC TV 450, Rate 16, PEEP 5, FiO2 30%. Patient responsive to painful stimuli. Currently afebrile. Patient is for trach placement this afternoon with Dr. Levin. Today on rounds, the patient was noted to have a mixed alkalosis (respiratory > metabolic). The patient's ventilator tidal volume setting was changed from 450mL to 400mL. The patient is NPO. 08/16/16 13:35 Patient seen and examined at the bedside. No acute events overnight. No acute distress. Nursing staff reports no issues. Patient was afebrile overnight. Last febrile episode 100.5* on 08/15/16 at 21:19. The patient appears comfortable. Family is present at the bedside and the patient's condition was discussed with them at length. Today on rounds, the patient's propofol was DC. Dr. Elizalde was called and the plan is for PEG tube placement tomorrow vs Saturday. abatement worker consult was placed for DC planning and evaluation. Following removal of sedation, the patient was alert and interacting with family. The sedation vacation was stopped when the patient began grabbing for his trach tubes. CCU Objective - Vital Signs / Intake & Output Vital Signs (Last 4 hours): Vital Signs Temp Pulse Resp BP Pulse Ox 08/16/16 13:00 89 13 100 08/16/16 12:57 85 12 143/65 100 08/16/16 12:00 100.1 F H 85 14 100 08/16/16 11:56 85 14 155/95 H 100 08/16/16 11:00 85 12 100 08/16/16 10:56 83 13 156/82 H 100 08/16/16 10:00 90 11 L 100 08/16/16 09:57 93 H 11 L 170/68 H 100 Intake and Output (Last 8hrs): Intake & Output 08/15/16 08/16/16 08/16/16 22:59 06:59 14:59 Intake Total 1283.5 1342.4 1102.6 Output Total 400 500 655 Balance 883.5 842.4 447.6 Weight 82.3 kg Intake: IV 100 100 0 Intake, IV Amount 918.5 907.4 1002.6 Right PICC 867 833 950 Right Proximal Port PICC 51.5 74.4 52.6 Oral 100 Tube Feeding 165 335 100 Output: Urine 400 500 655 Condom 400 500 655 Other: # Voids Condom 0 # Bowel Movements 0 0 0 - Physical Exam Head: Positive for: Normocephalic, Other (bandages in place and C/D/I, ET Tube in place). 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 Negative for: EOMI Conjunctiva: Positive for: Normal Mouth: Positive for: Moist Mucous Membranes Pharnyx: Positive for: Other (gag and cough reflexes intact) Neck: Negative for: JVD Respiratory/Chest: Positive for: Clear to Auscultation, Good Air Exchange. Negative for: Respiratory Distress, Accessory Muscle Use, Wheezes, Rales Cardiovascular: Positive for: Regular Rate and Rhythm, Normal S1, S2, Peripheal Pulses Present. Negative for: Murmurs Abdomen: Positive for: Normal Bowel Sounds. Negative for: Tenderness, Distention, Rebound, Guarding Upper Extremity: Positive for: Normal Inspection, NORMAL PULSES, Neurovascularly Intact. Negative for: Cyanosis, Edema Lower Extremity: Positive for: Normal Inspection, NORMAL PULSES, Neurovascularly Intact. Negative for: Edema Neurological: Positive for: Motor Func Grossly Intact, Other (brainstem reflexes intact, more awake and responsive off sedation ) Skin: Positive for: Warm, Dry Psychiatric: Positive for: Alert, Agitated - Medications Active Medications: Active Medications Generic Name Dose Route Start Last Admin Trade Name Freq PRN Reason Stop Dose Admin Acetaminophen 650 mg 08/12/16 10:00 08/15/16 21:19 Tylenol 650mg/20.3ml Solution Ud NG 650 mg Q6 PRN Administration Fever >100.4 F Amantadine HCl 100 mg 08/14/16 18:00 08/16/16 09:32 Amantadine 100 Mg Cap PO 100 mg BID GORDO Administration Famotidine 20 mg 08/12/16 10:00 08/16/16 09:36 Pepcid PO 20 mg DAILY GORDO Administration Fluticasone Propionate 1 spr 08/11/16 18:00 08/16/16 09:43 Flonase BO 1 spray BID GORDO Administration Home Med 1 drop 08/07/16 18:00 08/16/16 09:45 Patient's Own Drops OS 1 drop BID GORDO Administration Vancomycin HCl 1,000 mg/ 250 mls @ 166.6 mls/hr 08/12/16 09:00 08/16/16 09:27 Sodium Chloride IVPB 166.6 mls/hr Q12H GORDO Administration Imipenem/Cilastatin Sodium 500 100 mls @ 100 mls/hr 08/14/16 12:00 08/16/16 12:15 mg/ Sodium Chloride IVPB 100 mls/hr Q6H GORDO Administration Sodium Chloride 1,000 mls @ 100 mls/hr 08/14/16 16:35 08/15/16 23:53 Sodium Chloride 0.9% IV 100 mls/hr .Q10H GORDO Administration Dexmedetomidine HCl 200 mcg/ 50 mls @ 4.11 mls/hr 08/16/16 10:41 08/16/16 11: 24 Sodium Chloride IV 0.2 mcg/kg/hr TITR PRN 4.11 mls/hr Sedation Administration Protocol 0.2 MCG/KG/HR Insulin Human Regular 0 unit 07/31/16 12:00 08/16/16 12:10 Novolin R SC Not Given Q6H GORDO Protocol Latanoprost 0 ml 07/31/16 22:00 08/15/16 21:23 Xalatan Opht OD 2.5 ml HS GORDO Administration Lisinopril 10 mg 08/15/16 16:35 08/16/16 12:15 Zestril PO 10 mg DAILY GORDO Administration Methylphenidate HCl 5 mg 08/15/16 10:00 08/16/16 09:42 Ritalin PO 5 mg QAM GORDO Administration Senna/Docusate Sodium 1 tab 08/11/16 22:00 08/15/16 21:20 Senokot S 50 Mg-8.6 Mg PO 1 tab HS GORDO Administration Sennosides 8.6 mg 08/08/16 00:43 08/16/16 09:36 Senokot Tab NG 8.6 mg BID GORDO Administration Timolol Maleate 0 drop 07/31/16 11:15 08/16/16 09:44 Timoptic 0.5% Ophth Soln OD 1 drop DAILY GORDO Administration - Patient Studies Lab Studies: Microbiology Studies 08/12/16 06:45 Blood Culture - Preliminary Blood-Venous NO GROWTH AFTER 4 DAYS 08/12/16 06:15 Blood Culture - Preliminary Blood-Venous NO GROWTH AFTER 4 DAYS 08/12/16 17:52 Gram Stain - Final Trachasp Sputum Culture - Final Yeast Species Lab Studies 08/16/16 08/16/16 08/16/16 Range/Units 11:50 06:31 06:31 WBC (4.8-10.8) K/uL RBC (4.40-5.90) Mil/uL Hgb (12.0-18.0) g/dL Hct (35.0-51.0) % MCV (80.0-94.0) fL MCH (27.0-31.0) pg MCHC (33.0-37.0) g/dL RDW (11.5-14.5) % Plt Count (130-400) K/uL MPV (7.2-11.7) fL Neut % (Auto) (50.0-75.0) % Lymph % (Auto) (20.0-40.0) % Hud[place]eth % (Auto) (0.0-10.0) % Eos % (Auto) (0.0-4.0) % Baso % (Auto) (0.0-2.0) % Neut # (1.8-7.0) K/uL Lymph # (1.0-4.3) K/uL Hudspeth # (0.0-0.8) K/uL Eos # (0.0-0.7) K/uL Baso # (0.0-0.2) K/uL PT 11.8 (9.7-12.2) SECONDS INR 1.1 APTT 29 (21-34) SECONDS Puncture Site pCO2 (35-45) mm/Hg pO2 (80-100) mm/Hg HCO3 (21-28) mmol/L ABG pH (7.35-7.45) ABG Total CO2 (22-28) mmol/L ABG O2 Saturation (95-98) % ABG Base Excess (-2.0-3.0) mmol/L David Test ABG Potassium (3.6-5.2) mmol/L A-a O2 Difference mm/Hg Respiratory Index Sodium 136 (132-148) mmol/l Chloride 101 (98-107) mmol/L Glucose (75-110) mg/dl Lactate (0.7-2.1) mmol/L Mechanical Rate FiO2 % Tidal Volume PEEP Potassium 3.6 (3.6-5.2) mmol/L Carbon Dioxide 25 (22-30) mmol/L Anion Gap 14 (10-20) BUN 14 (9-20) mg/dL Creatinine 0.5 L (0.8-1.5) MG/DL Est GFR ( Amer) > 60 Est GFR (Non-Af Amer) > 60 POC Glucose (mg/dL) 127 H (65-110) mg/dL Random Glucose 126 H (75-110) mg/dL Calcium 7.9 L (8.6-10.4) mg/dl Phosphorus 3.1 (2.5-4.5) mg/dL Magnesium 2.1 (1.6-2.3) mg/dL Total Bilirubin 0.6 (0.2-1.3) mg/dL AST 57 (17-59) U/L ALT 65 (21-72) U/L Alkaline Phosphatase 182 H (38-126) U/L Total Protein 5.6 L (6.3-8.3) g/dL Albumin 2.6 L (3.5-5.0) g/dL Globulin 3.0 (2.2-3.9) gm/dL Albumin/Globulin Ratio 0.9 L (1.0-2.1) Arterial Blood Potassium (3.6-5.2) mmol/L 08/16/16 08/16/16 08/16/16 Range/Units 06:31 05:59 05:27 WBC 11.3 H (4.8-10.8) K/uL RBC 3.27 L (4.40-5.90) Mil/uL Hgb 8.6 L (12.0-18.0) g/dL Hct 26.0 L (35.0-51.0) % MCV 79.6 L (80.0-94.0) fL MCH 26.3 L (27.0-31.0) pg MCHC 33.0 (33.0-37.0) g/dL RDW 14.0 (11.5-14.5) % Plt Count 412 H (130-400) K/uL MPV 8.7 (7.2-11.7) fL Neut % (Auto) 70.4 (50.0-75.0) % Lymph % (Auto) 15.9 L (20.0-40.0) % Hudspeth % (Auto) 10.2 H (0.0-10.0) % Eos % (Auto) 2.7 (0.0-4.0) % Baso % (Auto) 0.8 (0.0-2.0) % Neut # 8.0 H (1.8-7.0) K/uL Lymph # 1.8 (1.0-4.3) K/uL Hudspeth # 1.2 H (0.0-0.8) K/uL Eos # 0.3 (0.0-0.7) K/uL Baso # 0.1 (0.0-0.2) K/uL PT (9.7-12.2) SECONDS INR APTT (21-34) SECONDS Puncture Site Lr pCO2 31 L (35-45) mm/Hg pO2 105 H (80-100) mm/Hg HCO3 29.0 H (21-28) mmol/L ABG pH 7.55 H (7.35-7.45) ABG Total CO2 28.1 H (22-28) mmol/L ABG O2 Saturation 99.5 H (95-98) % ABG Base Excess 5.2 H (-2.0-3.0) mmol/L David Test Pos ABG Potassium 3.3 L (3.6-5.2) mmol/L A-a O2 Difference 70.0 mm/Hg Respiratory Index 0.7 Sodium 140.0 (132-148) mmol/l Chloride 111.0 H (98-107) mmol/L Glucose 128 H (75-110) mg/dl Lactate 0.8 (0.7-2.1) mmol/L Mechanical Rate 16 FiO2 30.0 % Tidal Volume 400 PEEP 5 Potassium (3.6-5.2) mmol/L Carbon Dioxide (22-30) mmol/L Anion Gap (10-20) BUN (9-20) mg/dL Creatinine (0.8-1.5) MG/DL Est GFR ( Amer) Est GFR (Non-Af Amer) POC Glucose (mg/dL) 167 H (65-110) mg/dL Random Glucose (75-110) mg/dL Calcium (8.6-10.4) mg/dl Phosphorus (2.5-4.5) mg/dL Magnesium (1.6-2.3) mg/dL Total Bilirubin (0.2-1.3) mg/dL AST (17-59) U/L ALT (21-72) U/L Alkaline Phosphatase (38-126) U/L Total Protein (6.3-8.3) g/dL Albumin (3.5-5.0) g/dL Globulin (2.2-3.9) gm/dL Albumin/Globulin Ratio (1.0-2.1) Arterial Blood Potassium 3.3 L (3.6-5.2) mmol/L 08/15/16 08/15/16 Range/Units 23:51 17:50 WBC (4.8-10.8) K/uL RBC (4.40-5.90) Mil/uL Hgb (12.0-18.0) g/dL Hct (35.0-51.0) % MCV (80.0-94.0) fL MCH (27.0-31.0) pg MCHC (33.0-37.0) g/dL RDW (11.5-14.5) % Plt Count (130-400) K/uL MPV (7.2-11.7) fL Neut % (Auto) (50.0-75.0) % Lymph % (Auto) (20.0-40.0) % Hudspeth % (Auto) (0.0-10.0) % Eos % (Auto) (0.0-4.0) % Baso % (Auto) (0.0-2.0) % Neut # (1.8-7.0) K/uL Lymph # (1.0-4.3) K/uL Hudspeth # (0.0-0.8) K/uL Eos # (0.0-0.7) K/uL Baso # (0.0-0.2) K/uL PT (9.7-12.2) SECONDS INR APTT (21-34) SECONDS Puncture Site pCO2 (35-45) mm/Hg pO2 (80-100) mm/Hg HCO3 (21-28) mmol/L ABG pH (7.35-7.45) ABG Total CO2 (22-28) mmol/L ABG O2 Saturation (95-98) % ABG Base Excess (-2.0-3.0) mmol/L David Test ABG Potassium (3.6-5.2) mmol/L A-a O2 Difference mm/Hg Respiratory Index Sodium (132-148) mmol/l Chloride (98-107) mmol/L Glucose (75-110) mg/dl Lactate (0.7-2.1) mmol/L Mechanical Rate FiO2 % Tidal Volume PEEP Potassium (3.6-5.2) mmol/L Carbon Dioxide (22-30) mmol/L Anion Gap (10-20) BUN (9-20) mg/dL Creatinine (0.8-1.5) MG/DL Est GFR ( Amer) Est GFR (Non-Af Amer) POC Glucose (mg/dL) 158 H 135 H (65-110) mg/dL Random Glucose (75-110) mg/dL Calcium (8.6-10.4) mg/dl Phosphorus (2.5-4.5) mg/dL Magnesium (1.6-2.3) mg/dL Total Bilirubin (0.2-1.3) mg/dL AST (17-59) U/L ALT (21-72) U/L Alkaline Phosphatase (38-126) U/L Total Protein (6.3-8.3) g/dL Albumin (3.5-5.0) g/dL Globulin (2.2-3.9) gm/dL Albumin/Globulin Ratio (1.0-2.1) Arterial Blood Potassium (3.6-5.2) mmol/L Laboratory Results - last 24 hr 08/15/16 08/15/16 08/16/16 17:50 23:51 05:27 WBC RBC Hgb Hct MCV MCH MCHC RDW Plt Count MPV Neut % (Auto) Lymph % (Auto) Hudspeth % (Auto) Eos % (Auto) Baso % (Auto) Neut # Lymph # Hudspeth # Eos # Baso # PT INR APTT Puncture Site Lr pCO2 31 L pO2 105 H HCO3 29.0 H ABG pH 7.55 H ABG Total CO2 28.1 H ABG O2 Saturation 99.5 H ABG Base Excess 5.2 H David Test Pos ABG Potassium 3.3 L A-a O2 Difference 70.0 Respiratory Index 0.7 Sodium 140.0 Chloride 111.0 H Glucose 128 H Lactate 0.8 Mechanical Rate 16 FiO2 30.0 Tidal Volume 400 PEEP 5 Potassium Carbon Dioxide Anion Gap BUN Creatinine Est GFR ( Amer) Est GFR (Non-Af Amer) POC Glucose (mg/dL) 135 H 158 H Random Glucose Calcium Phosphorus Magnesium Total Bilirubin AST ALT Alkaline Phosphatase Total Protein Albumin Globulin Albumin/Globulin Ratio Arterial Blood Potassium 3.3 L 08/16/16 08/16/16 08/16/16 05:59 06:31 06:31 WBC 11.3 H RBC 3.27 L Hgb 8.6 L Hct 26.0 L MCV 79.6 L MCH 26.3 L MCHC 33.0 RDW 14.0 Plt Count 412 H MPV 8.7 Neut % (Auto) 70.4 Lymph % (Auto) 15.9 L Hudspeth % (Auto) 10.2 H Eos % (Auto) 2.7 Baso % (Auto) 0.8 Neut # 8.0 H Lymph # 1.8 Hudspeth # 1.2 H Eos # 0.3 Baso # 0.1 PT 11.8 INR 1.1 APTT 29 Puncture Site pCO2 pO2 HCO3 ABG pH ABG Total CO2 ABG O2 Saturation ABG Base Excess David Test ABG Potassium A-a O2 Difference Respiratory Index Sodium Chloride Glucose Lactate Mechanical Rate FiO2 Tidal Volume PEEP Potassium Carbon Dioxide Anion Gap BUN Creatinine Est GFR ( Amer) Est GFR (Non-Af Amer) POC Glucose (mg/dL) 167 H Random Glucose Calcium Phosphorus Magnesium Total Bilirubin AST ALT Alkaline Phosphatase Total Protein Albumin Globulin Albumin/Globulin Ratio Arterial Blood Potassium 08/16/16 08/16/16 06:31 11:50 WBC RBC Hgb Hct MCV MCH MCHC RDW Plt Count MPV Neut % (Auto) Lymph % (Auto) Hudsp[place] % (Auto) Eos % (Auto) Baso % (Auto) Neut # Lymph # Hudspeth # Eos # Baso # PT INR APTT Puncture Site pCO2 pO2 HCO3 ABG pH ABG Total CO2 ABG O2 Saturation ABG Base Excess David Test ABG Potassium A-a O2 Difference Respiratory Index Sodium 136 Chloride 101 Glucose Lactate Mechanical Rate FiO2 Tidal Volume PEEP Potassium 3.6 Carbon Dioxide 25 Anion Gap 14 BUN 14 Creatinine 0.5 L Est GFR ( Amer) > 60 Est GFR (Non-Af Amer) > 60 POC Glucose (mg/dL) 127 H Random Glucose 126 H Calcium 7.9 L Phosphorus 3.1 Magnesium 2.1 Total Bilirubin 0.6 AST 57 ALT 65 Alkaline Phosphatase 182 H Total Protein 5.6 L Albumin 2.6 L Globulin 3.0 Albumin/Globulin Ratio 0.9 L Arterial Blood Potassium Fingerstick Blood Sugar Results: 127 Review of Systems - Review of Systems Systems not reviewed;Unavailable: Intubated Critical Care Progress Note - Ventilator Checklist Head of Bed 30 Degrees: Yes - Vent Settings MODE:: PRVC TIDAL VOLUME:: 400 RESP RATE:: 16 FIO2:: 5 PEEP:: 30 - Extremities/Vascular Does the Patient have a Central Venous Catheter?: Yes Insertion Site: PICC Does the Patient need a Central Venous Catheter?: Yes Does the Patient have a Devlin Catheter?: Yes Does the Patient need a Devlin Catheter?: Yes Catheter Insertion Criteria: Patient requires prolonged immobilization - Prophylaxis GI Prophylaxis GI: Pepsid - Prophylaxis DVT Prophylaxis DVT: SCDs - Nutrition Nutrition: Nutrition Category Date Time Status NPO Diet [DIET] Diets 08/16/16 Breakfast Active Assessment/Plan (1) Cerebral hemorrhage Current Visit: Yes Status: Acute (2) Subdural hemorrhage following injury Current Visit: Yes Status: Acute Priority: High - Assessment and Plan (Free Text) Assessment: Patient Status: Stable s/p craniotomy. Intubated and Sedated. Patient is planned for PEG tube placement with Dr. Guallpa tomorrow or Saturday. Neuro: -intubated -tolerated sedation vacation, but became agitated so sedation was resumed -Sedation changed to Precedex -Amatadine 100mg BID -Methylphenidate 5mg qAM -brainstem reflexes intact -POD #15 s/p craniotomy with Dr. Bolden -Dr. Bonner following Imaging: : 08/13/16 CT Head- Right cerebral convexity subdural, unchanged. Status post right parietal craniotomy. No parenchymal hemorrhage. Minimal midline shift, 1- 2 mm, unchanged. Few bubbles of residual extra-axial air, decreased. No evidence of acute hemorrhage. : 08/12/16 CT Head- Right cerebral convexity subdural, unchanged. Status post right parietal craniotomy. No parenchymal hemorrhage. Minimal midline shift, 1- 2 mm, unchanged. Few bubbles of residual extra-axial air, decreased. No evidence of acute hemorrhage. : 08/10/16 CT Head- Status post removal right-sided subdural drainage catheter. Small residual mixed attenuation subdural collection with diminished amount of subdural air. Persistent mild mass effect with compressive effects on the right cerebral hemisphere as described. Minimal [id number] midline shift. Dysconjugate gaze and/or strabismus. 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 Status post right-sided cataract surgery. : 08/07/16 CT Head- Status post drainage of right subdural hematoma. A drainage catheter is seen in the extra-axial space. There is air and fluid in the sub dural space with an average thickness of 9 mm. No change : 08/06/16 CT Head- Status post surgical intervention, placement of drainage catheter into the extra-axial space at the site of prior subdural hematoma edema , mass effect and midline shift have improved considerably. No new or significant findings identified : 08/04/16 CT Head- Acute extra-axial hemorrhage with blood layering in the extra-axial space. Increase in sulcal effacement, mass effect and midline shift. There is no evidence of herniation. This follows removal of the surgical drain identified previously. : 08/02/16 CT Head- Satisfactory postoperative status following craniotomy, evacuation of large extra-axial fluid collection on the right. Greater details are provided above. No new intra-axial abnormalities. Improved edema, mass effect. No evidence of acute infarction. : 07/30/16 CT Head- Large right acute extra-axial hemorrhage with severe mass effect and midline shift. Cardiovascular: -Hemodynamically stable -PICC Line for access Pulmonary: -Daily CXR/ABG -General Surgery Consult (Dr. Levin) POD #1 s/p trach -Intubated- PRVC : TV- 400mL : rate- 16/min : PEEP- 5cmH2O : FiO2- 30% -Imaging : 08/16/16 CXR- Tracheostomy tube. Nasogastric tube extends to the expected location of the stomach. Right-sided PICC extends expected location of the cavoatrial junction : 08/14/16 CXR- Lines and tubes in stable position. Mild venous congestion. Probable external device projecting over the left lower kate thorax and right lateral upper ktae thorax. Mild cardiomegaly. : 08/13/16 CXR- Endotracheal tube terminates approximately 2.1 cm above the astrid. Nasogastric tube extends expected location of the stomach. Right-sided PICC terminates at the expected location of the cavoatrial junction. : 08/13/16 CXR- ET tube tip at tracheal astrid and should be withdrawn several cm. Otherwise no significant change. : 08/12/16 CXR- In situ ETT and NGT as above. Mild bibasilar atelectasis. Probable calcified pleural plaque right kate diaphragm : 08/12/16 CXR- Interval removal ETT. NGT remains in place as above. Mild bibasilar atelectasis. . Questionable pleural base calcification right hemidiaphragm. : 08/10/16 CXR- In situ ETT, tip of which lies approximately 4.28 cm above astrid. NGT is present, the tip of which is coiled in the left upper quadrant of the abdomen likely within the fundus region of the stomach. Low lung volumes with mild crowded bronchovascular markings and mild bibasilar atelectasis. : 08/09/16 CXR- Lines and tubes in stable position. Patchy increased markings at the left lung base suggestive for atelectasis and or infiltrate with questionable trace left pleural effusion. -ABG : 08/16/16- CO2= 31 / O2= 105 / HCO3= 29.0 / pH= 7.55 : 08/15/16- CO2= 33 / O2= 110 / HCO3= 28.3 / pH= 7.52 : 08/14/16- CO2= 30 / O2= 105 / HCO3= 24.3 / pH= 7.47 : 08/13/16- CO2= 30 / O2= 176 / HCO3= 20.7 / pH= 7.40 : 08/12/16- CO2= 29 / O2= 136 / HCO3= 19.5 / pH= 7.38 : 08/12/16- CO2= 30 / O2= 85 / HCO3= 21.7 / pH= 7.42 : 08/11/16- CO2= 30 / O2= 104 / HCO3= 13.0 / pH= 7.45 : 08/10/16- CO2= 38 / O2= 94 / HCO3= 34.1 / pH= 7.57 : 08/09/16- CO2= 29 / O2= 203 / HCO3= 25.3 / pH= 7.51 Gastrointestinal: -Tube Feeds (isosource 1.5) 40ml/hr -GI Consult (Dr. Peters) for PEG tube placement- tomorr vs Saturday -Npo after midnight -Consent in chart Hematology: -No acute issues Endocrine: -Novolin Sliding Scale Renal: -Mixed Alkalosis (respiratory > metabolic) : will monitor with daily ABG Musculoskeletal: -No issues Genitourinary: -08/12/16 Urine Culture (+) for ESBL E.Coli -Primaxin 500mg IV q6- Day 3 Infectious Disease: -Leukocytosis- improving- 2/2 to UTI with ESBL E.Coli -Vancomycin 1g IV q12- Day 4 -Primaxin 500mg IV q6- Day 2 GI Prophylaxis: Pepcid 20mg PO daily DVT Prophylaxis: SCDs Case Discussed with Dr. Tami Ceballos PGY1 - Date & Time Date: 08/16/16 Time: 13:55 <Chadd Garrett - Last Filed: 08/16/16 14:16> CCU Objective - Vital Signs / Intake & Output Vital Signs (Last 4 hours): Vital Signs Temp Pulse Resp BP Pulse Ox 08/16/16 13:00 89 13 100 08/16/16 12:57 85 12 143/65 100 08/16/16 12:00 100.1 F H 85 14 100 08/16/16 11:56 85 14 155/95 H 100 08/16/16 11:00 85 12 100 08/16/16 10:56 83 13 156/82 H 100 Intake and Output (Last 8hrs): Intake & Output 08/15/16 08/16/16 08/16/16 22:59 06:59 14:59 Intake Total 1283.5 1342.4 1102.6 Output Total 400 500 655 Balance 883.5 842.4 447.6 Weight 181 lb 7.047 oz Intake: IV 100 100 0 Intake, IV Amount 918.5 907.4 1002.6 Right PICC 867 833 950 Right Proximal Port PICC 51.5 74.4 52.6 Oral 100 Tube Feeding 165 335 100 Output: Urine 400 500 655 Condom 400 500 655 Other: # Voids Condom 0 # Bowel Movements 0 0 0 - Medications Active Medications: Active Medications Generic Name Dose Route Start Last Admin Trade Name Freq PRN Reason Stop Dose Admin Acetaminophen 650 mg 08/12/16 10:00 08/15/16 21:19 Tylenol 650mg/20.3ml Solution Ud NG 650 mg Q6 PRN Administration Fever >100.4 F Amantadine HCl 100 mg 08/14/16 18:00 08/16/16 09:32 Amantadine 100 Mg Cap PO 100 mg BID GORDO Administration Famotidine 20 mg 08/12/16 10:00 08/16/16 09:36 Pepcid PO 20 mg DAILY GORDO Administration Fluticasone Propionate 1 spr 08/11/16 18:00 08/16/16 09:43 Flonase BO 1 spray BID GORDO Administration Home Med 1 drop 08/07/16 18:00 08/16/16 09:45 Patient's Own Drops OS 1 drop BID GORDO Administration Vancomycin HCl 1,000 mg/ 250 mls @ 166.6 mls/hr 08/12/16 09:00 08/16/16 09:27 Sodium Chloride IVPB 166.6 mls/hr Q12H GORDO Administration Imipenem/Cilastatin Sodium 500 100 mls @ 100 mls/hr 08/14/16 12:00 08/16/16 12:15 mg/ Sodium Chloride IVPB 100 mls/hr Q6H GORDO Administration Sodium Chloride 1,000 mls @ 100 mls/hr 08/14/16 16:35 08/15/16 23:53 Sodium Chloride 0.9% IV 100 mls/hr .Q10H GORDO Administration Dexmedetomidine HCl 200 mcg/ 50 mls @ 4.11 mls/hr 08/16/16 10:41 08/16/16 11: 24 Sodium Chloride IV 0.2 mcg/kg/hr TITR PRN 4.11 mls/hr Sedation Administration Protocol 0.2 MCG/KG/HR Insulin Human Regular 0 unit 07/31/16 12:00 08/16/16 12:10 Novolin R SC Not Given Q6H GORDO Protocol Latanoprost 0 ml 07/31/16 22:00 08/15/16 21:23 Xalatan Opht OD 2.5 ml HS GORDO Administration Lisinopril 10 mg 08/15/16 16:35 08/16/16 12:15 Zestril PO 10 mg DAILY GORDO Administration Methylphenidate HCl 5 mg 08/15/16 10:00 08/16/16 09:42 Ritalin PO 5 mg QAM GORDO Administration Senna/Docusate Sodium 1 tab 08/11/16 22:00 08/15/16 21:20 Senokot S 50 Mg-8.6 Mg PO 1 tab HS GORDO Administration Sennosides 8.6 mg 08/08/16 00:43 08/16/16 09:36 Senokot Tab NG 8.6 mg BID GORDO Administration Timolol Maleate 0 drop 07/31/16 11:15 08/16/16 09:44 Timoptic 0.5% Ophth Soln OD 1 drop DAILY GORDO Administration - Patient Studies Lab Studies: Microbiology Studies 08/12/16 06:45 Blood Culture - Preliminary Blood-Venous NO GROWTH AFTER 4 DAYS 08/12/16 06:15 Blood Culture - Preliminary Blood-Venous NO GROWTH AFTER 4 DAYS 08/12/16 17:52 Gram Stain - Final Trachasp Sputum Culture - Final Yeast Species Lab Studies 08/16/16 08/16/16 08/16/16 Range/Units 11:50 06:31 06:31 WBC (4.8-10.8) K/uL RBC (4.40-5.90) Mil/uL Hgb (12.0-18.0) g/dL Hct (35.0-51.0) % MCV (80.0-94.0) fL MCH (27.0-31.0) pg MCHC (33.0-37.0) g/dL RDW (11.5-14.5) % Plt Count (130-400) K/uL MPV (7.2-11.7) fL Neut % (Auto) (50.0-75.0) % Lymph % (Auto) (20.0-40.0) % [place] % (Auto) (0.0-10.0) % Eos % (Auto) (0.0-4.0) % Baso % (Auto) (0.0-2.0) % Neut # (1.8-7.0) K/uL Lymph # (1.0-4.3) K/uL [place] # (0.0-0.8) K/uL Eos # (0.0-0.7) K/uL Baso # (0.0-0.2) K/uL PT 11.8 (9.7-12.2) SECONDS INR 1.1 APTT 29 (21-34) SECONDS Puncture Site pCO2 (35-45) mm/Hg pO2 (80-100) mm/Hg HCO3 (21-28) mmol/L ABG pH (7.35-7.45) ABG Total CO2 (22-28) mmol/L ABG O2 Saturation (95-98) % ABG Base Excess (-2.0-3.0) mmol/L David Test ABG Potassium (3.6-5.2) mmol/L A-a O2 Difference mm/Hg Respiratory Index Sodium 136 (132-148) mmol/l Chloride 101 (98-107) mmol/L Glucose (75-110) mg/dl Lactate (0.7-2.1) mmol/L Mechanical Rate FiO2 % Tidal Volume PEEP Potassium 3.6 (3.6-5.2) mmol/L Carbon Dioxide 25 (22-30) mmol/L Anion Gap 14 (10-20) BUN 14 (9-20) mg/dL Creatinine 0.5 L (0.8-1.5) MG/DL Est GFR ( Amer) > 60 Est GFR (Non-Af Amer) > 60 POC Glucose (mg/dL) 127 H (65-110) mg/dL Random Glucose 126 H (75-110) mg/dL Calcium 7.9 L (8.6-10.4) mg/dl Phosphorus 3.1 (2.5-4.5) mg/dL Magnesium 2.1 (1.6-2.3) mg/dL Total Bilirubin 0.6 (0.2-1.3) mg/dL AST 57 (17-59) U/L ALT 65 (21-72) U/L Alkaline Phosphatase 182 H (38-126) U/L Total Protein 5.6 L (6.3-8.3) g/dL Albumin 2.6 L (3.5-5.0) g/dL Globulin 3.0 (2.2-3.9) gm/dL Albumin/Globulin Ratio 0.9 L (1.0-2.1) Arterial Blood Potassium (3.6-5.2) mmol/L 08/16/16 08/16/16 08/16/16 Range/Units 06:31 05:59 05:27 WBC 11.3 H (4.8-10.8) K/uL RBC 3.27 L (4.40-5.90) Mil/uL Hgb 8.6 L (12.0-18.0) g/dL Hct 26.0 L (35.0-51.0) % MCV 79.6 L (80.0-94.0) fL MCH 26.3 L (27.0-31.0) pg MCHC 33.0 (33.0-37.0) g/dL RDW 14.0 (11.5-14.5) % Plt Count 412 H (130-400) K/uL MPV 8.7 (7.2-11.7) fL Neut % (Auto) 70.4 (50.0-75.0) % Lymph % (Auto) 15.9 L (20.0-40.0) % [place] % (Auto) 10.2 H (0.0-10.0) % Eos % (Auto) 2.7 (0.0-4.0) % Baso % (Auto) 0.8 (0.0-2.0) % Neut # 8.0 H (1.8-7.0) K/uL Lymph # 1.8 (1.0-4.3) K/uL [place] # 1.2 H (0.0-0.8) K/uL Eos # 0.3 (0.0-0.7) K/uL Baso # 0.1 (0.0-0.2) K/uL PT (9.7-12.2) SECONDS INR APTT (21-34) SECONDS Puncture Site Lr pCO2 31 L (35-45) mm/Hg pO2 105 H (80-100) mm/Hg HCO3 29.0 H (21-28) mmol/L ABG pH 7.55 H (7.35-7.45) ABG Total CO2 28.1 H (22-28) mmol/L ABG O2 Saturation 99.5 H (95-98) % ABG Base Excess 5.2 H (-2.0-3.0) mmol/L David Test Pos ABG Potassium 3.3 L (3.6-5.2) mmol/L A-a O2 Difference 70.0 mm/Hg Respiratory Index 0.7 Sodium 140.0 (132-148) mmol/l Chloride 111.0 H (98-107) mmol/L Glucose 128 H (75-110) mg/dl Lactate 0.8 (0.7-2.1) mmol/L Mechanical Rate 16 FiO2 30.0 % Tidal Volume 400 PEEP 5 Potassium (3.6-5.2) mmol/L Carbon Dioxide (22-30) mmol/L Anion Gap (10-20) BUN (9-20) mg/dL Creatinine (0.8-1.5) MG/DL Est GFR ( Amer) Est GFR (Non-Af Amer) POC Glucose (mg/dL) 167 H (65-110) mg/dL Random Glucose (75-110) mg/dL Calcium (8.6-10.4) mg/dl Phosphorus (2.5-4.5) mg/dL Magnesium (1.6-2.3) mg/dL Total Bilirubin (0.2-1.3) mg/dL AST (17-59) U/L ALT (21-72) U/L Alkaline Phosphatase (38-126) U/L Total Protein (6.3-8.3) g/dL Albumin (3.5-5.0) g/dL Globulin (2.2-3.9) gm/dL Albumin/Globulin Ratio (1.0-2.1) Arterial Blood Potassium 3.3 L (3.6-5.2) mmol/L 08/15/16 08/15/16 Range/Units 23:51 17:50 WBC (4.8-10.8) K/uL RBC (4.40-5.90) Mil/uL Hgb (12.0-18.0) g/dL Hct (35.0-51.0) % MCV (80.0-94.0) fL MCH (27.0-31.0) pg MCHC (33.0-37.0) g/dL RDW (11.5-14.5) % Plt Count (130-400) K/uL MPV (7.2-11.7) fL Neut % (Auto) (50.0-75.0) % Lymph % (Auto) (20.0-40.0) % [place] % (Auto) (0.0-10.0) % Eos % (Auto) (0.0-4.0) % Baso % (Auto) (0.0-2.0) % Neut # (1.8-7.0) K/uL Lymph # (1.0-4.3) K/uL [place] # (0.0-0.8) K/uL Eos # (0.0-0.7) K/uL Baso # (0.0-0.2) K/uL PT (9.7-12.2) SECONDS INR APTT (21-34) SECONDS Puncture Site pCO2 (35-45) mm/Hg pO2 (80-100) mm/Hg HCO3 (21-28) mmol/L ABG pH (7.35-7.45) ABG Total CO2 (22-28) mmol/L ABG O2 Saturation (95-98) % ABG Base Excess (-2.0-3.0) mmol/L David Test ABG Potassium (3.6-5.2) mmol/L A-a O2 Difference mm/Hg Respiratory Index Sodium (132-148) mmol/l Chloride (98-107) mmol/L Glucose (75-110) mg/dl Lactate (0.7-2.1) mmol/L Mechanical Rate FiO2 % Tidal Volume PEEP Potassium (3.6-5.2) mmol/L Carbon Dioxide (22-30) mmol/L Anion Gap (10-20) BUN (9-20) mg/dL Creatinine (0.8-1.5) MG/DL Est GFR ( Amer) Est GFR (Non-Af Amer) POC Glucose (mg/dL) 158 H 135 H (65-110) mg/dL Random Glucose (75-110) mg/dL Calcium (8.6-10.4) mg/dl Phosphorus (2.5-4.5) mg/dL Magnesium (1.6-2.3) mg/dL Total Bilirubin (0.2-1.3) mg/dL AST (17-59) U/L ALT (21-72) U/L Alkaline Phosphatase (38-126) U/L Total Protein (6.3-8.3) g/dL Albumin (3.5-5.0) g/dL Globulin (2.2-3.9) gm/dL Albumin/Globulin Ratio (1.0-2.1) Arterial Blood Potassium (3.6-5.2) mmol/L Laboratory Results - last 24 hr 08/15/16 08/15/16 08/16/16 17:50 23:51 05:27 WBC RBC Hgb Hct MCV MCH MCHC RDW Plt Count MPV Neut % (Auto) Lymph % (Auto) [place] % (Auto) Eos % (Auto) Baso % (Auto) Neut # Lymph # [place] # Eos # Baso # PT INR APTT Puncture Site Lr pCO2 31 L pO2 105 H HCO3 29.0 H ABG pH 7.55 H ABG Total CO2 28.1 H ABG O2 Saturation 99.5 H ABG Base Excess 5.2 H David Test Pos ABG Potassium 3.3 L A-a O2 Difference 70.0 Respiratory Index 0.7 Sodium 140.0 Chloride 111.0 H Glucose 128 H Lactate 0.8 Mechanical Rate 16 FiO2 30.0 Tidal Volume 400 PEEP 5 Potassium Carbon Dioxide Anion Gap BUN Creatinine Est GFR ( Amer) Est GFR (Non-Af Amer) POC Glucose (mg/dL) 135 H 158 H Random Glucose Calcium Phosphorus Magnesium Total Bilirubin AST ALT Alkaline Phosphatase Total Protein Albumin Globulin Albumin/Globulin Ratio Arterial Blood Potassium 3.3 L 08/16/16 08/16/16 08/16/16 05:59 06:31 06:31 WBC 11.3 H RBC 3.27 L Hgb 8.6 L Hct 26.0 L MCV 79.6 L MCH 26.3 L MCHC 33.0 RDW 14.0 Plt Count 412 H MPV 8.7 Neut % (Auto) 70.4 Lymph % (Auto) 15.9 L [place] % (Auto) 10.2 H Eos % (Auto) 2.7 Baso % (Auto) 0.8 Neut # 8.0 H Lymph # 1.8 [place] # 1.2 H Eos # 0.3 Baso # 0.1 PT 11.8 INR 1.1 APTT 29 Puncture Site pCO2 pO2 HCO3 ABG pH ABG Total CO2 ABG O2 Saturation ABG Base Excess David Test ABG Potassium A-a O2 Difference Respiratory Index Sodium Chloride Glucose Lactate Mechanical Rate FiO2 Tidal Volume PEEP Potassium Carbon Dioxide Anion Gap BUN Creatinine Est GFR ( Amer) Est GFR (Non-Af Amer) POC Glucose (mg/dL) 167 H Random Glucose Calcium Phosphorus Magnesium Total Bilirubin AST ALT Alkaline Phosphatase Total Protein Albumin Globulin Albumin/Globulin Ratio Arterial Blood Potassium 08/16/16 08/16/16 06:31 11:50 WBC RBC Hgb Hct MCV MCH MCHC RDW Plt Count MPV Neut % (Auto) Lymph % (Auto) [place] % (Auto) Eos % (Auto) Baso % (Auto) Neut # Lymph # [place] # Eos # Baso # PT INR APTT Puncture Site pCO2 pO2 HCO3 ABG pH ABG Total CO2 ABG O2 Saturation ABG Base Excess David Test ABG Potassium A-a O2 Difference Respiratory Index Sodium 136 Chloride 101 Glucose Lactate Mechanical Rate FiO2 Tidal Volume PEEP Potassium 3.6 Carbon Dioxide 25 Anion Gap 14 BUN 14 Creatinine 0.5 L Est GFR ( Amer) > 60 Est GFR (Non-Af Amer) > 60 POC Glucose (mg/dL) 127 H Random Glucose 126 H Calcium 7.9 L Phosphorus 3.1 Magnesium 2.1 Total Bilirubin 0.6 AST 57 ALT 65 Alkaline Phosphatase 182 H Total Protein 5.6 L Albumin 2.6 L Globulin 3.0 Albumin/Globulin Ratio 0.9 L Arterial Blood Potassium Attending/Attestation - Attestation I have personally seen and examined this patient.: Yes I have fully participated in the care of the patient.: Yes I have reviewed all pertinent clinical information: Yes Notes (Text): 08/16/16 14:13 I have seen and examined the patient. Medical records, lab studies, and imaging were reviewed by me and a management plan was formulated on multidisciplinary rounds with resident Dr. Ceballos. I agree with their above documented assessment and plan. Patient's family has agreed to PEG placement, placement scheduled for tomorrow. Stopping sedation, transition with precedex to eventually stop all sedation. Patient will need [facility]. Critical Care Time 35 minutes. Multi-disciplinary rounds were performed with house staff, nursing, speech therapy, respiratory therapy, pharmacy and nutrition with integrated input from the primary team/attending and other consulting services. The documented time is cumulative and includes review of patient data/exams/labs/chart review and examination of the patient on rounds and throughout the day; time is exclusive of any procedures or teaching time.
--- NOTE | 2016-08-16 13:56 | RAD ---
HISTORY: s/p trach COMPARISON: Chest x-ray performed 08/14/16 TECHNIQUE: Chest, one view. FINDINGS: Tracheostomy tube. Nasogastric tube extends expected location of the stomach. Right-sided PICC extends expected location of the cavoatrial junction. Multiple external wires and leads obscure evaluation of the underlying parenchyma. LUNGS: No focal consolidation. Please note that chest x-ray has limited sensitivity for the detection of pulmonary masses. PLEURA: No significant pleural effusion identified. No definite pneumothorax . CARDIOVASCULAR: Heart size appears top normal. Ectatic aorta. Atherosclerotic calcifications. OSSEOUS STRUCTURES: Degenerative changes. VISUALIZED UPPER ABDOMEN: Unremarkable. OTHER FINDINGS: None. IMPRESSION: Tracheostomy tube. Nasogastric tube extends to the expected location of the stomach. Right-sided PICC extends expected location of the cavoatrial junction.
[2016-08-16] MEDS: Sodium Chloride 0.9% 1,000 ML IV SCH ×2 (15:47→18:35)
--- NOTE | 2016-08-16 17:56 | CP.PCM.PN ---
Subjective - Date & Time of Evaluation Date of Evaluation: 08/16/16 Time of Evaluation: 17:50 - Subjective Subjective: Medical Attending Note: Follow-up: Subdural hemorrhage, ESBL+ UTI, Hypertension, Diabetes Patient seen, examined, and case discussed with ICU. I spoke with the patient's , daughter through the phone, who reports patient is speaking with them in Spanish, reporting burning with urination and reporting he feels his mouth is dry. Also spoke with the daughter who understands patient is for a feeding tube tomorrow. Objective - Vital Signs/Intake and Output Vital Signs (last 24 hours): Temp Pulse Resp BP Pulse Ox 100.2 F H 83 18 118/63 100 08/16/16 16:00 08/16/16 16:56 08/16/16 16:56 08/16/16 16:56 08/16/16 16:56 Intake and Output: 08/16/16 08/16/16 06:59 18:59 Intake Total 1976.9 1614.9 Output Total 800 995 Balance 1176.9 619.9 - Medications Medications: Current Medications Acetaminophen (Tylenol 650mg/20.3ml Solution Ud) 650 mg NG Q6 PRN PRN Reason: Fever >100.4 F Last Admin: 08/15/16 21:19 Dose: 650 mg Amantadine HCl (Amantadine 100 Mg Cap) 100 mg PO BID [facility] Last Admin: 08/16/16 09:32 Dose: 100 mg Famotidine (Pepcid) 20 mg PO DAILY [facility] Last Admin: 08/16/16 09:36 Dose: 20 mg Fluticasone Propionate (Flonase) 1 spr BO BID [facility] Last Admin: 08/16/16 09:43 Dose: 1 spray Home Med (Patient's Own Drops) 1 drop OS BID [facility] Last Admin: 08/16/16 09:45 Dose: 1 drop Vancomycin HCl 1,000 mg/ (Sodium Chloride) 250 mls @ 166.6 mls/hr IVPB Q12H [facility] Last Admin: 08/16/16 09:27 Dose: 166.6 mls/hr Imipenem/Cilastatin Sodium 500 (mg/ Sodium Chloride) 100 mls @ 100 mls/hr IVPB Q6H [facility] Last Admin: 08/16/16 17:46 Dose: 100 mls/hr Sodium Chloride (Sodium Chloride 0.9%) 1,000 mls @ 100 mls/hr IV .Q10H [facility] Last Admin: 08/16/16 15:47 Dose: 100 mls/hr Dexmedetomidine HCl 200 mcg/ (Sodium Chloride) 50 mls @ 4.11 mls/hr IV TITR PRN ; Protocol; 0.2 MCG/KG/HR PRN Reason: Sedation Last Admin: 08/16/16 17:45 Dose: 0.2 mcg/kg/hr, 4.11 mls/hr Insulin Human Regular (Novolin R) 0 unit SC Q6H GORDO PRN Reason: Protocol Last Admin: 08/16/16 12:10 Dose: Not Given Latanoprost (Xalatan Opht) 0 ml OD HS [facility] Last Admin: 08/15/16 21:23 Dose: 2.5 ml Lisinopril (Zestril) 10 mg PO DAILY [facility] Last Admin: 08/16/16 12:15 Dose: 10 mg Methylphenidate HCl (Ritalin) 5 mg PO QAM [facility] Last Admin: 08/16/16 09:42 Dose: 5 mg Senna/Docusate Sodium (Senokot S 50 Mg-8.6 Mg) 1 tab PO HS [facility] Last Admin: 08/15/16 21:20 Dose: 1 tab Sennosides (Senokot Tab) 8.6 mg NG BID [facility] Last Admin: 08/16/16 09:36 Dose: 8.6 mg Timolol Maleate (Timoptic 0.5% Ophth Soln) 0 drop OD DAILY [facility] Last Admin: 08/16/16 09:44 Dose: 1 drop - Labs Labs: 08/16/16 06:31 08/16/16 06:31 PT 11.8 SECONDS (9.7-12.2) 08/16/16 06:31 INR 1.1 08/16/16 06:31 APTT 29 SECONDS (21-34) 08/16/16 06:31 - Constitutional Appears: Non-toxic, No Acute Distress - Head Exam Additional comments: Dressing intact over right head NGT tube [place] cathter Prevalon boots Right PICC line - Eye Exam Additional comments: Left eye: adduction Right eye: improving; laterally tracking out - ENT Exam ENT Exam: Mucous Membranes Moist - Neck Exam Additional comments: trach connected to machine: clean/dry/intact - Respiratory Exam Respiratory Exam: NORMAL BREATHING PATTERN Additional comments: on vent - Cardiovascular Exam Cardiovascular Exam: REGULAR RHYTHM, +S1, +S2 - GI/Abdominal Exam GI & Abdominal Exam: Soft, Normal Bowel Sounds. absent: Distended, Guarding, Rigid, Tenderness, Rebound - Extremities Exam Additional comments: Prevalon boots - Neurological Exam Neurological Exam: Alert, Awake - Skin Skin Exam: Dry, Normal Color, Warm Assessment and Plan (1) Cerebral hemorrhage Status: Acute (2) Hypertension Status: Chronic (3) Diabetes Status: Chronic (4) Leukocytosis Status: Acute (5) Urinary tract infection Status: Acute (6) ESBL (extended spectrum beta-lactamase) producing bacteria infection Status: Acute (7) Prophylactic measure Status: Acute Attending/Attestation - Attestation I have personally seen and examined this patient.: Yes I have fully participated in the care of the patient.: Yes I have reviewed all pertinent clinical information, including history, physical exam and plan: Yes Notes (Text): (1) Cerebral hemorrhage Assessment & Plan: * Critical care: help appreciated * Neurosurgery: Dr. Bolden on board-->help appreciated * Neurology: Dr Bonner on board-->help appreciated * Head CT (07/30/16): CT Head without contrast: 1. The left orbit appears to be rotated 90 degrees to the right while the right orbit appears to be oriented normally. 2. 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 This results in severe mass effect on the underlying brain, including 1.4 cm of leftward midline shift and compression of the right lateral ventricle. Asymmetric enlargement of the right temporal horn suggestive of early entrapment. * Head CT (08/02/16): satisfactory postoperative status following craniotomy, evacuation of large extra-axial fluid collection on the right. No new intra- axial abnormalities. Improved edema, mass effect. No evidence of acute infarction. * Head CT (08/04/16) showed acute extra-axial hemorrhage with blood layering in the extra-axial space. Increase in sulcal effacement, mass effect and midline shift. There is no evidence of herniation. This follows removal of the surgical drain identified previously. * Head CT (08/06/16): status post surgical intervention, placement of drainage catheter into the extra-axial space at the site prior subdural hematoma edema, mass effect and midline shift have improved considerably. No new or significant findings identified. * Head CT (08/07/16): status post drainage of right subdural hematoma. Drainage catheter is nora in the extra axial space. Air and fluid in the usbdral space with an average thickeness of 9mm * Head CT (08/10/16): status post removal right sided subdural drainage catheter. Small residual mixed attenuation subdural collection with diminished amount of subdural air. Persistent mild mass effect with compressive effects on the right cerebral hemisphere. Minial right to left midline shift. Dysconjugate gaze and/ or strabismus. 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 status post right sided cataract surgery * Head CT (08/13/16): redemonstrated to small to medium sized hypodense of residual right sided subdural hematoma. Minmindal right to left midline shift. Previously noted small amount of subdural air on prior study has undegone further resoprtion. Persistent mild subjacent mass effect with compression of cerebral sulci and mild compression of right lateral ventricle. No evidence of obstructive hydrocephalus. * POD: s/p Kyler hole and evacuation of subdural hemorrhage with [place] and David drain * POD s/p right frontotemporal craniotomy; evacuation of acute subdural drain present * Removal of drain on 08/03/16 * S/p trach 08/15/16 * Keppra 500mg IVPB Q 12hours for seizure prophylaxis * Per neurosurgery, prefers patient off anticoagulation * continue Neurochecks * on NS 100cc/hr * Recommended by Neurology, for Amantidine and Ritalin, and NS 100cc/hr Status: Acute (2) Acute Respiratory Failure Assessment & Plan: * Multiple intubation/Reintubations during hospitalization * General Surgery (Dr. Levin) on board-->discussed with patient's nephew and daughter 08/15/16 * POD 1: diagnostic bronchoscopy, percutaneous tracheostomy Status: Acute (3) Hypertension Assessment & Plan: * NS 100c cc/hr * Lisinopril 10mg PO daily * Monitor vitals signs Status: Chronic (4) Diabetes Assessment & Plan: * [id number]: 5.9 * Controlled * Accuchecks Q6 hours * Regular insulin sliding scale subq Q 6hours * on feedings Status: Chronic (5) ESBL+ UTI; Leukocytosis Assessment & Plan: * Blood cultures X2: negative thus far urine culture (08/12/16) * Elevated white count in 31-->24-->24-->14-->11.9-->11.3 * D/C Cefepime 1 gram Q 12hour, started on Primaxin IV and held Vancomycin 1g IV Q 12hours evening dose; pending trough level * Febrile, leukocytosis * UA: pyuria, hematuria, +esterase; urine culture: gram negative bebo pending speciation * Fever: on hypothermic blanket * Tmax: 100.2F * Contact isolation (6) Prophylactic measure Assessment & Plan: * Neurosurgery prefers patient off anticoagulation per prior discussion with ICU * NGT tube * Pepcid 20mg PO daily * No benzos * Seizure prophylaxis * s/p trach * PICC line * Feeding tube tomorrow
--- NOTE | 2016-08-16 18:46 | CP.PCM.PN ---
Subjective - Date & Time of Evaluation Date of Evaluation: 08/16/16 Time of Evaluation: 11:00 - Subjective Subjective: Mr. Renee Cid was seen and examined in the ICU with his at bedside. He underwent placement of a trach and was doing well. He was significantly more active today and was following commands briskly. Objective - Vital Signs/Intake and Output Vital Signs (last 24 hours): Temp Pulse Resp BP Pulse Ox 100.2 F H 83 18 118/63 100 08/16/16 16:00 08/16/16 16:56 08/16/16 16:56 08/16/16 16:56 08/16/16 16:56 Intake and Output: 08/16/16 08/16/16 06:59 18:59 Intake Total 1976.9 1614.9 Output Total 800 995 Balance 1176.9 619.9 - Medications Medications: Current Medications Acetaminophen (Tylenol 650mg/20.3ml Solution Ud) 650 mg NG Q6 PRN PRN Reason: Fever >100.4 F Last Admin: 08/15/16 21:19 Dose: 650 mg Amantadine HCl (Amantadine 100 Mg Cap) 100 mg PO BID [facility] Last Admin: 08/16/16 18:02 Dose: 100 mg Famotidine (Pepcid) 20 mg PO DAILY [facility] Last Admin: 08/16/16 09:36 Dose: 20 mg Fluticasone Propionate (Flonase) 1 spr BO BID [facility] Last Admin: 08/16/16 09:43 Dose: 1 spray Home Med (Patient's Own Drops) 1 drop OS BID [facility] Last Admin: 08/16/16 18:03 Dose: 1 drop Vancomycin HCl 1,000 mg/ (Sodium Chloride) 250 mls @ 166.6 mls/hr IVPB Q12H [facility] Last Admin: 08/16/16 09:27 Dose: 166.6 mls/hr Imipenem/Cilastatin Sodium 500 (mg/ Sodium Chloride) 100 mls @ 100 mls/hr IVPB Q6H [facility] Last Admin: 08/16/16 17:46 Dose: 100 mls/hr Sodium Chloride (Sodium Chloride 0.9%) 1,000 mls @ 100 mls/hr IV .Q10H [facility] Last Admin: 08/16/16 18:35 Dose: Not Given Dexmedetomidine HCl 200 mcg/ (Sodium Chloride) 50 mls @ 4.11 mls/hr IV TITR PRN ; Protocol; 0.2 MCG/KG/HR PRN Reason: Sedation Last Admin: 08/16/16 17:45 Dose: 0.2 mcg/kg/hr, 4.11 mls/hr Insulin Human Regular (Novolin R) 0 unit SC Q6H [facility] PRN Reason: Protocol Last Admin: 08/16/16 18:02 Dose: 2 unit Latanoprost (Xalatan Opht) 0 ml OD HS [facility] Last Admin: 08/15/16 21:23 Dose: 2.5 ml Lisinopril (Zestril) 10 mg PO DAILY [facility] Last Admin: 08/16/16 12:15 Dose: 10 mg Methylphenidate HCl (Ritalin) 5 mg PO QAM [facility] Last Admin: 08/16/16 09:42 Dose: 5 mg Senna/Docusate Sodium (Senokot S 50 Mg-8.6 Mg) 1 tab PO HS [facility] Last Admin: 08/15/16 21:20 Dose: 1 tab Sennosides (Senokot Tab) 8.6 mg NG BID [facility] Last Admin: 08/16/16 18:03 Dose: 8.6 mg Timolol Maleate (Timoptic 0.5% Ophth Soln) 0 drop OD DAILY [facility] Last Admin: 08/16/16 09:44 Dose: 1 drop - Labs Labs: 08/16/16 06:31 08/16/16 06:31 PT 11.8 SECONDS (9.7-12.2) 08/16/16 06:31 INR 1.1 08/16/16 06:31 APTT 29 SECONDS (21-34) 08/16/16 06:31 - Neurological Exam Neurological Exam: Altered Neuro motor strength exam: Left Upper Extremity: 4, Right Upper Extremity: 4, Left Lower Extremity: 4, Right Lower Extremity: 4 Additional comments: CN 3 palsy on the left, with improved ocular movements in the right eye. Alert , awake and follows commands. Moves all extremities to command. Upgoing plantar response on the left. Assessment and Plan (1) Subdural hemorrhage following injury Assessment & Plan: Continue seizure prophylaxis, PT/OT plan. Avoid compression of craniectomy site. DVT Px. Plan to transfer to inpatient rehab. Status: Acute
[2016-08-16] MEDS: Acetaminophen 650mg/20.3ml solution UD NG PRN (21:12)
[2016-08-16] MEDS: Latanoprost 2.5 ml Opht Soln OD SCH (22:40)
[2016-08-16] MEDS: Docusate-Senna 50 mg-8.6 mg Tab PO SCH (22:41)
[2016-08-17] MEDS: (Novolin R) Insulin Human Regular 100 units/ml vial SC SCH ×4 (00:05→17:33)
[2016-08-17] MEDS: Dexmedetomidine Hydrochloride 200 MCG in Sodium Chloride 0.9% 48 ML IV PRN ×2 (01:13→05:39)
[2016-08-17] MEDS: Sodium Chloride 0.9% 1,000 ML IV SCH ×3 (05:10→21:24)
[2016-08-17 05:35] LABS: ABG ALLEN TEST POS; ABG MECHANICAL RATE 16; ARTERIAL BLOOD HGB O2 SAT 94.7 % (95.0-98.0); ATERIAL BLOOD GAS PEEP 5; CARBOXYHEMOGLOBIN 1.3 % (0.5-1.5); DRAW SITE RR; HHB 2.6 % (0.0-5.0); METHEMOGLOBIN 1.4 % (0.0-3.0)
[2016-08-17 06:25] LABS: BASO % 0.5 % (0.0-2.0); EOS # 0.2 K/uL (0.0-0.7); LYMPH # 1.7 K/uL (1.0-4.3); LYMPH % 17.5 % (20.0-40.0); MEAN CELL VOLUME 79.3 fL (80.0-94.0); MEAN CORPUSCULAR HEMOGLOBIN 26.5 pg (27.0-31.0); MEAN CORPUSCULAR HGB CONC 33.3 g/dL (33.0-37.0); MEAN PLATELET VOLUME 8.6 fL (7.2-11.7); MONO # 1.1 K/uL (0.0-0.8); MONO % 11.3 % (0.0-10.0); RED CELL DISTRIBUTION WIDTH 13.8 % (11.5-14.5); WHITE BLOOD COUNT 9.5 K/uL (4.8-10.8)
[2016-08-17 06:36] LABS: INR 1.1
[2016-08-17 06:43] LABS: CHLORIDE 101 mmol/L (98-107); POTASSIUM 3.2 mmol/L (3.6-5.2); SODIUM 138 mmol/L (132-148)
[2016-08-17 06:45] LABS: BILIRUBIN,TOTAL 0.6 mg/dL (0.2-1.3); GFR AFRICAN-AMERICAN > 60
[2016-08-17 06:46] LABS: ALB/GLOB RATIO 0.9 (1.0-2.1); ALKALINE PHOSPHATASE 160 U/L (38-126); ALT/SGPT 53 U/L (21-72); AST/SGOT 40 U/L (17-59); BLOOD UREA NITROGEN 10 mg/dL (9-20); CARBON DIOXIDE 28 mmol/L (22-30); GLUCOSE,RANDOM 116 mg/dL (75-110); PHOSPHOROUS 2.9 mg/dL (2.5-4.5); TOTAL PROTEIN 5.2 g/dL (6.3-8.3)
[2016-08-17 06:47] LABS: CALCIUM 7.6 mg/dl (8.6-10.4); MAGNESIUM 1.9 mg/dL (1.6-2.3)
[2016-08-17] MEDS ORDERED: Magnesium Sulfate 1 gm in D5W 1 GM/100 ML BAG IVPB ONE (07:21)
--- NOTE | 2016-08-17 07:22 | CP.CCUPN ---
<Daron Ceballos - Last Filed: 08/17/16 13:07> CCU Subjective - Physician Review Subjective (Free Text): 08/13/16 16:45 Patient seen and examined at the bedside. No acute events overnight. No acute distress. Nursing staff reports no issues. Re-intubated due to resp distress and SOB. Patient responsive to painful stimuli. Currently afebrile. Today on rounds, the patient's NS rate was decreaesed to 50ml/hr. The patient went for PICC placement (consent obtained over the phone with daughter). The patient right femoral TLC was removed at the bedside. 08/14/16 16:11 Patient seen and examined at the bedside. No acute events overnight. No acute distress. Nursing staff reports no issues. Intubated due to resp distress and SOB, PRVC TV 450, Rate 16, PEEP 5, FiO2 30%. Patient responsive to painful stimuli. Currently afebrile. Today on rounds, patient was started on amantadine and ritalin per Dr. Bonner's request. Patient was evaluated by GI and general surgery teams for PEG tube placement and trach respectively. The patient's urine culture returned ESBL resistant to cefepime. Primaxin was started. The patient's magnesium was also replaced. 08/15/16 10:58 Patient seen and examined at the bedside. No acute events overnight. No acute distress. Nursing staff reports no issues. Patient was febrile overnight 100.5 * at 23:17 and 00:00. T-max still 103.1 on 08/13/16 at 18:15. Patient remains on PRVC TV 450, Rate 16, PEEP 5, FiO2 30%. Patient responsive to painful stimuli. Currently afebrile. Patient is for trach placement this afternoon with Dr. Levin. Today on rounds, the patient was noted to have a mixed alkalosis (respiratory > metabolic). The patient's ventilator tidal volume setting was changed from 450mL to 400mL. The patient is NPO. 08/16/16 13:35 Patient seen and examined at the bedside. No acute events overnight. No acute distress. Nursing staff reports no issues. Patient was afebrile overnight. Last febrile episode 100.5* on 08/15/16 at 21:19. The patient appears comfortable. Family is present at the bedside and the patient's condition was discussed with them at length. Today on rounds, the patient's propofol was DC. Dr. Elizalde was called and the plan is for PEG tube placement tomorrow vs Saturday. public health worker consult was placed for DC planning and evaluation. Following removal of sedation, the patient was alert and interacting with family. The sedation vacation was stopped when the patient began grabbing for his trach tubes. 08/17/16 07:17 Patient seen and examined at the bedside. No acute events overnight. No acute distress. Nursing staff reports no issues. Patient currently afebrile. Febrile overnight. Last febrile episode 100.5* on 08/16/16 at 22:12. Patient is for PEG tube placement today with Dr. Guallpa at 13:30. The patient is NPO. Consent was obtained and placed in the chart. The patient has tolerated CPAP trials. Today on rounds, the patient's potassium and magnesium was replaced. The patient was also type and crossmatched for 2 units of pRBCs. The patient was also taken off PRVC and switched to CPAP 12/13. The patient is tolerating the CPAP. Critical Care Time Spent (in minutes): 90 CCU Objective - Vital Signs / Intake & Output Vital Signs (Last 4 hours): Vital Signs Temp Pulse Resp BP Pulse Ox 08/17/16 06:00 77 20 96 08/17/16 05:57 75 23 99/53 L 97 08/17/16 05:00 91 H 9 L 08/17/16 04:56 92 H 9 L 147/76 08/17/16 04:00 100 F H 95 H 16 100 Intake and Output (Last 8hrs): Intake & Output 08/16/16 08/17/16 08/17/16 22:59 06:59 14:59 Intake Total 1385.2 1271.0 Output Total 650 400 Balance 735.2 871.0 Weight 79.832 kg Intake: IV 50 100 Intake, IV Amount 835.2 1071.0 Right PICC 800 1000 Right Proximal Port PICC 35.2 71.0 Tube Feeding 400 100 Other 100 Output: Urine 650 400 Condom 650 400 Other: # Bowel Movements 0 0 - Physical Exam Head: Positive for: Normocephalic, Other (bandages in place and C/D/I, ET Tube in place). 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 Negative for: EOMI Conjunctiva: Positive for: Normal Mouth: Positive for: Moist Mucous Membranes Pharnyx: Positive for: Other (gag and cough reflexes intact) Neck: Negative for: JVD Respiratory/Chest: Positive for: Clear to Auscultation, Good Air Exchange. Negative for: Respiratory Distress, Accessory Muscle Use, Wheezes, Rales Cardiovascular: Positive for: Regular Rate and Rhythm, Normal S1, S2, Peripheal Pulses Present. Negative for: Murmurs Abdomen: Positive for: Normal Bowel Sounds. Negative for: Tenderness, Distention, Rebound, Guarding Upper Extremity: Positive for: Normal Inspection, NORMAL PULSES, Neurovascularly Intact. Negative for: Cyanosis, Edema Lower Extremity: Positive for: Normal Inspection, NORMAL PULSES, Neurovascularly Intact. Negative for: Edema Neurological: Positive for: Motor Func Grossly Intact, Other (brainstem reflexes intact, more awake and responsive, moves all limbs spontaneously ) Skin: Positive for: Warm, Dry Psychiatric: Positive for: Alert, Agitated - Medications Active Medications: Active Medications Generic Name Dose Route Start Last Admin Trade Name Freq PRN Reason Stop Dose Admin Acetaminophen 650 mg 08/12/16 10:00 08/16/16 21:12 Tylenol 650mg/20.3ml Solution Ud NG 650 mg Q6 PRN Administration Fever >100.4 F Amantadine HCl 100 mg 08/14/16 18:00 08/16/16 18:02 Amantadine 100 Mg Cap PO 100 mg BID GORDO Administration Famotidine 20 mg 08/12/16 10:00 08/16/16 09:36 Pepcid PO 20 mg DAILY GORDO Administration Fluticasone Propionate 1 spr 08/11/16 18:00 08/16/16 17:50 Flonase BO 1 spray BID GORDO Administration Home Med 1 drop 08/07/16 18:00 08/16/16 18:03 Patient's Own Drops OS 1 drop BID GORDO Administration Vancomycin HCl 1,000 mg/ 250 mls @ 166.6 mls/hr 08/12/16 09:00 08/16/16 09:27 Sodium Chloride IVPB 166.6 mls/hr Q12H GORDO Administration Imipenem/Cilastatin Sodium 500 100 mls @ 100 mls/hr 08/14/16 12:00 08/17/16 05:30 mg/ Sodium Chloride IVPB 100 mls/hr Q6H GORDO Administration Sodium Chloride 1,000 mls @ 100 mls/hr 08/14/16 16:35 08/17/16 05:10 Sodium Chloride 0.9% IV 100 mls/hr .Q10H GORDO Administration Dexmedetomidine HCl 200 mcg/ 50 mls @ 4.11 mls/hr 08/16/16 10:41 08/17/16 05: 39 Sodium Chloride IV 0.5 mcg/kg/hr TITR PRN 10.28 mls/hr Sedation Administration Protocol 0.2 MCG/KG/HR Insulin Human Regular 0 unit 07/31/16 12:00 08/17/16 05:33 Novolin R SC Not Given Q6H GORDO Protocol Latanoprost 0 ml 07/31/16 22:00 08/16/16 22:40 Xalatan Opht OD 2.5 ml HS GORDO Administration Lisinopril 10 mg 08/15/16 16:35 08/16/16 12:15 Zestril PO 10 mg DAILY GORDO Administration Methylphenidate HCl 5 mg 08/15/16 10:00 08/16/16 09:42 Ritalin PO 5 mg QAM GORDO Administration Senna/Docusate Sodium 1 tab 08/11/16 22:00 08/16/16 22:41 Senokot S 50 Mg-8.6 Mg PO 1 tab HS GORDO Administration Sennosides 8.6 mg 08/08/16 00:43 08/16/16 18:03 Senokot Tab NG 8.6 mg BID GORDO Administration Timolol Maleate 0 drop 07/31/16 11:15 08/16/16 09:44 Timoptic 0.5% Ophth Soln OD 1 drop DAILY GORDO Administration - Patient Studies Lab Studies: Microbiology Studies 08/12/16 06:45 Blood Culture - Preliminary Blood-Venous NO GROWTH AFTER 4 DAYS 08/12/16 06:15 Blood Culture - Preliminary Blood-Venous NO GROWTH AFTER 4 DAYS Lab Studies 08/17/16 08/17/16 08/17/16 Range/Units 06:14 06:14 06:14 WBC 9.5 (4.8-10.8) K/uL RBC 2.90 L (4.40-5.90) Mil/uL Hgb 7.7 L (12.0-18.0) g/dL Hct 23.0 L (35.0-51.0) % MCV 79.3 L (80.0-94.0) fL MCH 26.5 L (27.0-31.0) pg MCHC 33.3 (33.0-37.0) g/dL RDW 13.8 (11.5-14.5) % Plt Count 390 (130-400) K/uL MPV 8.6 (7.2-11.7) fL Neut % (Auto) 68.7 (50.0-75.0) % Lymph % (Auto) 17.5 L (20.0-40.0) % [place] % (Auto) 11.3 H (0.0-10.0) % Eos % (Auto) 2.0 (0.0-4.0) % Baso % (Auto) 0.5 (0.0-2.0) % Neut # 6.5 (1.8-7.0) K/uL Lymph # 1.7 (1.0-4.3) K/uL [place] # 1.1 H (0.0-0.8) K/uL Eos # 0.2 (0.0-0.7) K/uL Baso # 0.0 (0.0-0.2) K/uL PT 11.9 (9.7-12.2) SECONDS INR 1.1 APTT 29 (21-34) SECONDS Puncture Site pCO2 (35-45) mm/Hg pO2 (80-100) mm/Hg HCO3 (21-28) mmol/L ABG pH (7.35-7.45) ABG Total CO2 (22-28) mmol/L ABG O2 Saturation (95-98) % ABG Base Excess (-2.0-3.0) mmol/L ABG Hemoglobin (11.7-17.4) g/dL ABG Carboxyhemoglobin (0.5-1.5) % POC ABG HHb (Measured) (0.0-5.0) % ABG Methemoglobin (0.0-3.0) % David Test A-a O2 Difference mm/Hg Respiratory Index Hgb O2 Saturation (95.0-98.0) % Mechanical Rate FiO2 % Tidal Volume PEEP Sodium 138 (132-148) mmol/L Potassium 3.2 L (3.6-5.2) mmol/L Chloride 101 (98-107) mmol/L Carbon Dioxide 28 (22-30) mmol/L Anion Gap 12 (10-20) BUN 10 (9-20) mg/dL Creatinine 0.5 L (0.8-1.5) MG/DL Est GFR ( Amer) > 60 Est GFR (Non-Af Amer) > 60 POC Glucose (mg/dL) (65-110) mg/dL Random Glucose 116 H (75-110) mg/dL Calcium 7.6 L (8.6-10.4) mg/dl Phosphorus 2.9 (2.5-4.5) mg/dL Magnesium 1.9 (1.6-2.3) mg/dL Total Bilirubin 0.6 (0.2-1.3) mg/dL AST 40 (17-59) U/L ALT 53 (21-72) U/L Alkaline Phosphatase 160 H (38-126) U/L Total Protein 5.2 L (6.3-8.3) g/dL Albumin 2.5 L (3.5-5.0) g/dL Globulin 2.7 (2.2-3.9) gm/dL Albumin/Globulin Ratio 0.9 L (1.0-2.1) Vancomycin Trough (5.0-10.0) ug/mL 08/17/16 08/17/16 08/16/16 Range/Units 05:32 05:26 23:44 WBC (4.8-10.8) K/uL RBC (4.40-5.90) Mil/uL Hgb (12.0-18.0) g/dL Hct (35.0-51.0) % MCV (80.0-94.0) fL MCH (27.0-31.0) pg MCHC (33.0-37.0) g/dL RDW (11.5-14.5) % Plt Count (130-400) K/uL MPV (7.2-11.7) fL Neut % (Auto) (50.0-75.0) % Lymph % (Auto) (20.0-40.0) % [place] % (Auto) (0.0-10.0) % Eos % (Auto) (0.0-4.0) % Baso % (Auto) (0.0-2.0) % Neut # (1.8-7.0) K/uL Lymph # (1.0-4.3) K/uL [place] # (0.0-0.8) K/uL Eos # (0.0-0.7) K/uL Baso # (0.0-0.2) K/uL PT (9.7-12.2) SECONDS INR APTT (21-34) SECONDS Puncture Site Rr pCO2 37 (35-45) mm/Hg pO2 65 L (80-100) mm/Hg HCO3 29.1 H (21-28) mmol/L ABG pH 7.50 H (7.35-7.45) ABG Total CO2 30.0 H (22-28) mmol/L ABG O2 Saturation 97.3 (95-98) % ABG Base Excess 5.3 H (-2.0-3.0) mmol/L ABG Hemoglobin 7.5 L (11.7-17.4) g/dL ABG Carboxyhemoglobin 1.3 (0.5-1.5) % POC ABG HHb (Measured) 2.6 (0.0-5.0) % ABG Methemoglobin 1.4 (0.0-3.0) % David Test Pos A-a O2 Difference 103.0 mm/Hg Respiratory Index 1.6 Hgb O2 Saturation 94.7 L (95.0-98.0) % Mechanical Rate 16 FiO2 30.0 % Tidal Volume 400 PEEP 5 Sodium (132-148) mmol/L Potassium (3.6-5.2) mmol/L Chloride (98-107) mmol/L Carbon Dioxide (22-30) mmol/L Anion Gap (10-20) BUN (9-20) mg/dL Creatinine (0.8-1.5) MG/DL Est GFR ( Amer) Est GFR (Non-Af Amer) POC Glucose (mg/dL) 133 H 157 H (65-110) mg/dL Random Glucose (75-110) mg/dL Calcium (8.6-10.4) mg/dl Phosphorus (2.5-4.5) mg/dL Magnesium (1.6-2.3) mg/dL Total Bilirubin (0.2-1.3) mg/dL AST (17-59) U/L ALT (21-72) U/L Alkaline Phosphatase (38-126) U/L Total Protein (6.3-8.3) g/dL Albumin (3.5-5.0) g/dL Globulin (2.2-3.9) gm/dL Albumin/Globulin Ratio (1.0-2.1) Vancomycin Trough (5.0-10.0) ug/mL 08/16/16 08/16/16 08/16/16 Range/Units 20:03 17:51 11:50 WBC (4.8-10.8) K/uL RBC (4.40-5.90) Mil/uL Hgb (12.0-18.0) g/dL Hct (35.0-51.0) % MCV (80.0-94.0) fL MCH (27.0-31.0) pg MCHC (33.0-37.0) g/dL RDW (11.5-14.5) % Plt Count (130-400) K/uL MPV (7.2-11.7) fL Neut % (Auto) (50.0-75.0) % Lymph % (Auto) (20.0-40.0) % [place] % (Auto) (0.0-10.0) % Eos % (Auto) (0.0-4.0) % Baso % (Auto) (0.0-2.0) % Neut # (1.8-7.0) K/uL Lymph # (1.0-4.3) K/uL [place] # (0.0-0.8) K/uL Eos # (0.0-0.7) K/uL Baso # (0.0-0.2) K/uL PT (9.7-12.2) SECONDS INR APTT (21-34) SECONDS Puncture Site pCO2 (35-45) mm/Hg pO2 (80-100) mm/Hg HCO3 (21-28) mmol/L ABG pH (7.35-7.45) ABG Total CO2 (22-28) mmol/L ABG O2 Saturation (95-98) % ABG Base Excess (-2.0-3.0) mmol/L ABG Hemoglobin (11.7-17.4) g/dL ABG Carboxyhemoglobin (0.5-1.5) % POC ABG HHb (Measured) (0.0-5.0) % ABG Methemoglobin (0.0-3.0) % David Test A-a O2 Difference mm/Hg Respiratory Index Hgb O2 Saturation (95.0-98.0) % Mechanical Rate FiO2 % Tidal Volume PEEP Sodium (132-148) mmol/L Potassium (3.6-5.2) mmol/L Chloride (98-107) mmol/L Carbon Dioxide (22-30) mmol/L Anion Gap (10-20) BUN (9-20) mg/dL Creatinine (0.8-1.5) MG/DL Est GFR ( Amer) Est GFR (Non-Af Amer) POC Glucose (mg/dL) 175 H 127 H (65-110) mg/dL Random Glucose (75-110) mg/dL Calcium (8.6-10.4) mg/dl Phosphorus (2.5-4.5) mg/dL Magnesium (1.6-2.3) mg/dL Total Bilirubin (0.2-1.3) mg/dL AST (17-59) U/L ALT (21-72) U/L Alkaline Phosphatase (38-126) U/L Total Protein (6.3-8.3) g/dL Albumin (3.5-5.0) g/dL Globulin (2.2-3.9) gm/dL Albumin/Globulin Ratio (1.0-2.1) Vancomycin Trough 8.0 (5.0-10.0) ug/mL Laboratory Results - last 24 hr 08/16/16 08/16/16 08/16/16 11:50 17:51 20:03 WBC RBC Hgb Hct MCV MCH MCHC RDW Plt Count MPV Neut % (Auto) Lymph % (Auto) [place] % (Auto) Eos % (Auto) Baso % (Auto) Neut # Lymph # [place] # Eos # Baso # PT INR APTT Puncture Site pCO2 pO2 HCO3 ABG pH ABG Total CO2 ABG O2 Saturation ABG Base Excess ABG Hemoglobin ABG Carboxyhemoglobin POC ABG HHb (Measured) ABG Methemoglobin David Test A-a O2 Difference Respiratory Index Hgb O2 Saturation Mechanical Rate FiO2 Tidal Volume PEEP Sodium Potassium Chloride Carbon Dioxide Anion Gap BUN Creatinine Est GFR ( Amer) Est GFR (Non-Af Amer) POC Glucose (mg/dL) 127 H 175 H Random Glucose Calcium Phosphorus Magnesium Total Bilirubin AST ALT Alkaline Phosphatase Total Protein Albumin Globulin Albumin/Globulin Ratio Vancomycin Trough 8.0 08/16/16 08/17/16 08/17/16 23:44 05:26 05:32 WBC RBC Hgb Hct MCV MCH MCHC RDW Plt Count MPV Neut % (Auto) Lymph % (Auto) [place] % (Auto) Eos % (Auto) Baso % (Auto) Neut # Lymph # [place] # Eos # Baso # PT INR APTT Puncture Site Rr pCO2 37 pO2 65 L HCO3 29.1 H ABG pH 7.50 H ABG Total CO2 30.0 H ABG O2 Saturation 97.3 ABG Base Excess 5.3 H ABG Hemoglobin 7.5 L ABG Carboxyhemoglobin 1.3 POC ABG HHb (Measured) 2.6 ABG Methemoglobin 1.4 David Test Pos A-a O2 Difference 103.0 Respiratory Index 1.6 Hgb O2 Saturation 94.7 L Mechanical Rate 16 FiO2 30.0 Tidal Volume 400 PEEP 5 Sodium Potassium Chloride Carbon Dioxide Anion Gap BUN Creatinine Est GFR ( Amer) Est GFR (Non-Af Amer) POC Glucose (mg/dL) 157 H 133 H Random Glucose Calcium Phosphorus Magnesium Total Bilirubin AST ALT Alkaline Phosphatase Total Protein Albumin Globulin Albumin/Globulin Ratio Vancomycin Trough 08/17/16 08/17/16 08/17/16 06:14 06:14 06:14 WBC 9.5 RBC 2.90 L Hgb 7.7 L Hct 23.0 L MCV 79.3 L MCH 26.5 L MCHC 33.3 RDW 13.8 Plt Count 390 MPV 8.6 Neut % (Auto) 68.7 Lymph % (Auto) 17.5 L [place] % (Auto) 11.3 H Eos % (Auto) 2.0 Baso % (Auto) 0.5 Neut # 6.5 Lymph # 1.7 [place] # 1.1 H Eos # 0.2 Baso # 0.0 PT 11.9 INR 1.1 APTT 29 Puncture Site pCO2 pO2 HCO3 ABG pH ABG Total CO2 ABG O2 Saturation ABG Base Excess ABG Hemoglobin ABG Carboxyhemoglobin POC ABG HHb (Measured) ABG Methemoglobin David Test A-a O2 Difference Respiratory Index Hgb O2 Saturation Mechanical Rate FiO2 Tidal Volume PEEP Sodium 138 Potassium 3.2 L Chloride 101 Carbon Dioxide 28 Anion Gap 12 BUN 10 Creatinine 0.5 L Est GFR ( Amer) > 60 Est GFR (Non-Af Amer) > 60 POC Glucose (mg/dL) Random Glucose 116 H Calcium 7.6 L Phosphorus 2.9 Magnesium 1.9 Total Bilirubin 0.6 AST 40 ALT 53 Alkaline Phosphatase 160 H Total Protein 5.2 L Albumin 2.5 L Globulin 2.7 Albumin/Globulin Ratio 0.9 L Vancomycin Trough Fingerstick Blood Sugar Results: 133 Review of Systems - Review of Systems Systems not reviewed;Unavailable: Intubated Critical Care Progress Note - Ventilator Checklist Head of Bed 30 Degrees: Yes Daily Sedation Vacation: Yes Daily Assessment of Readiness to Wean: Yes - Vent Settings MODE:: PRVC TIDAL VOLUME:: 400 RESP RATE:: 16 FIO2:: 30 PEEP:: 5 - Extremities/Vascular Does the Patient have a Central Venous Catheter?: Yes Insertion Site: R PICC Does the Patient need a Central Venous Catheter?: Yes Does the Patient have a [place] Catheter?: Yes Does the Patient need a [place] Catheter?: Yes Catheter Insertion Criteria: Patient requires prolonged immobilization - Prophylaxis GI Prophylaxis GI: Pepsid - Prophylaxis DVT Prophylaxis DVT: SCDs - Nutrition Nutrition: Nutrition Category Date Time Status NPO Diet [DIET] Diets 08/17/16 Breakfast Active Assessment/Plan (1) Cerebral hemorrhage Current Visit: Yes Status: Acute (2) Subdural hemorrhage following injury Current Visit: Yes Status: Acute Priority: High - Assessment and Plan (Free Text) Plan: Patient Status: Stable s/p craniotomy Intubated and Sedated Patient is planned for PEG tube placement with Dr. Guallpa today at 13:30 Neuro: -intubated -Sedation changed to Precedex -Amatadine 100mg BID -Methylphenidate 5mg qAM -brainstem reflexes intact -POD #16 s/p craniotomy with Dr. Bolden -Dr. Bonner following Imaging: : 08/13/16 CT Head- Right cerebral convexity subdural, unchanged. Status post right parietal craniotomy. No parenchymal hemorrhage. Minimal midline shift, 1- 2 mm, unchanged. Few bubbles of residual extra-axial air, decreased. No evidence of acute hemorrhage. : 08/12/16 CT Head- Right cerebral convexity subdural, unchanged. Status post right parietal craniotomy. No parenchymal hemorrhage. Minimal midline shift, 1- 2 mm, unchanged. Few bubbles of residual extra-axial air, decreased. No evidence of acute hemorrhage. : 08/10/16 CT Head- Status post removal right-sided subdural drainage catheter. Small residual mixed attenuation subdural collection with diminished amount of subdural air. Persistent mild mass effect with compressive effects on the right cerebral hemisphere as described. Minimal [id number] midline shift. Dysconjugate gaze and/or strabismus. 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 Status post right-sided cataract surgery. : 08/07/16 CT Head- Status post drainage of right subdural hematoma. A drainage catheter is seen in the extra-axial space. There is air and fluid in the sub dural space with an average thickness of 9 mm. No change : 08/06/16 CT Head- Status post surgical intervention, placement of drainage catheter into the extra-axial space at the site of prior subdural hematoma edema , mass effect and midline shift have improved considerably. No new or significant findings identified : 08/04/16 CT Head- Acute extra-axial hemorrhage with blood layering in the extra-axial space. Increase in sulcal effacement, mass effect and midline shift. There is no evidence of herniation. This follows removal of the surgical drain identified previously. : 08/02/16 CT Head- Satisfactory postoperative status following craniotomy, evacuation of large extra-axial fluid collection on the right. Greater details are provided above. No new intra-axial abnormalities. Improved edema, mass effect. No evidence of acute infarction. : 07/30/16 CT Head- Large right acute extra-axial hemorrhage with severe mass effect and midline shift. Cardiovascular: -Hemodynamically stable -R PICC Line for access Pulmonary: -CPAP 12/13 tolerating well -General Surgery Consult (Dr. Levin) POD #1 s/p trach -Intubated- PRVC : TV- 400mL : rate- 16/min : PEEP- 5cmH2O : FiO2- 30% -Imaging : 08/16/16 CXR- Tracheostomy tube. Nasogastric tube extends to the expected location of the stomach. Right-sided PICC extends expected location of the cavoatrial junction : 08/14/16 CXR- Lines and tubes in stable position. Mild venous congestion. Probable external device projecting over the left lower kate thorax and right lateral upper kate thorax. Mild cardiomegaly. : 08/13/16 CXR- Endotracheal tube terminates approximately 2.1 cm above the astrid. Nasogastric tube extends expected location of the stomach. Right-sided PICC terminates at the expected location of the cavoatrial junction. : 08/13/16 CXR- ET tube tip at tracheal astrid and should be withdrawn several cm. Otherwise no significant change. : 08/12/16 CXR- In situ ETT and NGT as above. Mild bibasilar atelectasis. Probable calcified pleural plaque right kate diaphragm : 08/12/16 CXR- Interval removal ETT. NGT remains in place as above. Mild bibasilar atelectasis. . Questionable pleural base calcification right hemidiaphragm. : 08/10/16 CXR- In situ ETT, tip of which lies approximately 4.28 cm above astrid. NGT is present, the tip of which is coiled in the left upper quadrant of the abdomen likely within the fundus region of the stomach. Low lung volumes with mild crowded bronchovascular markings and mild bibasilar atelectasis. : 08/09/16 CXR- Lines and tubes in stable position. Patchy increased markings at the left lung base suggestive for atelectasis and or infiltrate with questionable trace left pleural effusion. -ABG : 08/17/16- CO2= 37 / O2= 65 / HCO3= 29.1 / pH= 7.50 : 08/16/16- CO2= 31 / O2= 105 / HCO3= 29.0 / pH= 7.55 : 08/15/16- CO2= 33 / O2= 110 / HCO3= 28.3 / pH= 7.52 : 08/14/16- CO2= 30 / O2= 105 / HCO3= 24.3 / pH= 7.47 : 08/13/16- CO2= 30 / O2= 176 / HCO3= 20.7 / pH= 7.40 : 08/12/16- CO2= 29 / O2= 136 / HCO3= 19.5 / pH= 7.38 : 08/12/16- CO2= 30 / O2= 85 / HCO3= 21.7 / pH= 7.42 : 08/11/16- CO2= 30 / O2= 104 / HCO3= 13.0 / pH= 7.45 : 08/10/16- CO2= 38 / O2= 94 / HCO3= 34.1 / pH= 7.57 : 08/09/16- CO2= 29 / O2= 203 / HCO3= 25.3 / pH= 7.51 Gastrointestinal: -Tube Feeds (isosource 1.5) 40ml/hr -GI Consult (Dr. Peters) for PEG tube placement -NPO currently -Consent in chart Hematology: -Acute drop in H&H (9.2 > 8.6 > 7.7) -Type ad Crossmatch 2 units -Transfuse 2 units pRBCs Endocrine: -Novolin Sliding Scale Renal: -Mixed Alkalosis (respiratory > metabolic)- improving -Daily ABG -Hypomagnesemia- replaced with 1g IV -Hypokalemia- replaced with 20meq IV x 2 Musculoskeletal: -No issues Genitourinary: -08/12/16 Urine Culture (+) for ESBL E.Coli -Primaxin 500mg IV q6- Day 4 Infectious Disease: -Leukocytosis- improving -Primaxin 500mg IV q6- Day 4 GI Prophylaxis: Pepcid 20mg PO daily DVT Prophylaxis: SCDs Case Discussed with Dr. Judie Ceballos PGY1 - Date & Time Date: 08/17/16 Time: 07:27 <Murphy Dimas - Last Filed: 08/21/16 18:29> CCU Objective - Vital Signs / Intake & Output Vital Signs (Last 4 hours): Vital Signs Temp Pulse Resp BP Pulse Ox 08/21/16 15:46 98.3 F 82 20 155/83 H 100 Intake and Output (Last 8hrs): Intake & Output 08/21/16 08/21/16 08/21/16 06:59 14:59 22:59 Intake Total 500 275 Balance 500 275 Intake: Intake, IV Amount 100 100 right arm picc 100 100 Tube Feeding 400 TPN/PPN 175 Other: # Voids Condom 4 Urine, Voided 1 # Bowel Movements 0 0 - Medications Active Medications: Active Medications Generic Name Dose Route Start Last Admin Trade Name Freq PRN Reason Stop Dose Admin Acetaminophen 650 mg 08/12/16 10:00 08/16/16 21:12 Tylenol 650mg/20.3ml Solution Ud NG 650 mg Q6 PRN Administration Fever >100.4 F Albuterol/Ipratropium 3 ml 08/21/16 02:00 08/21/16 13:18 Duoneb 3 Mg/0.5 Mg (3 Ml) Ud INH Not Given RQ6 GORDO Amantadine HCl 100 mg 08/14/16 18:00 08/21/16 18:20 Amantadine 100 Mg Cap PO 100 mg BID GORDO Administration Divalproex Sodium 500 mg 08/21/16 10:00 08/21/16 10:02 Depakote Er PO 500 mg DAILY GORDO Administration Famotidine 20 mg 08/12/16 10:00 08/21/16 10:02 Pepcid PO 20 mg DAILY GORDO Administration Fluticasone Propionate 1 spr 08/11/16 18:00 08/21/16 18:13 Flonase BO 1 spray BID GORDO Administration Home Med 1 drop 08/07/16 18:00 08/21/16 18:23 Patient's Own Drops OS 1 drop BID GORDO Administration Imipenem/Cilastatin Sodium 500 100 mls @ 100 mls/hr 08/19/16 18:00 08/21/16 18:14 mg/ Sodium Chloride IVPB 100 mls/hr Q6H GORD[facility] Administration Insulin Human Regular 0 unit 07/31/16 12:00 08/21/16 12:08 Novolin R SC Not Given Q6H [facility] Protocol Latanoprost 0 ml 07/31/16 22:00 08/20/16 22:24 Xalatan Opht OD 2.5 ml HS GORDO Administration Lisinopril 10 mg 08/15/16 16:35 08/21/16 10:02 Zestril PO 10 mg DAILY GORDO Administration Lorazepam 0.5 mg 08/18/16 21:07 08/20/16 22:23 Ativan IVP 0.5 mg Q6H PRN Administration Anxiety Senna/Docusate Sodium 1 tab 08/11/16 22:00 08/20/16 22:24 Senokot S 50 Mg-8.6 Mg PO 1 tab HS GORDO Administration Sennosides 8.6 mg 08/08/16 00:43 08/21/16 18:19 Senokot Tab NG 8.6 mg BID GORDO Administration Timolol Maleate 0 drop 07/31/16 11:15 08/21/16 10:01 Timoptic 0.5% Ophth Soln OD 1 drop DAILY GORDO Administration - Patient Studies Lab Studies: Microbiology Studies 08/19/16 Unknown MRSA Culture - Final Nose MRSA NOT DETECTED Lab Studies 08/21/16 08/21/16 08/21/16 Range/Units 16:21 11:11 06:59 WBC (4.8-10.8) K/uL RBC (4.40-5.90) Mil/uL Hgb (12.0-18.0) g/dL Hct (35.0-51.0) % MCV (80.0-94.0) fL MCH (27.0-31.0) pg MCHC (33.0-37.0) g/dL RDW (11.5-14.5) % Plt Count (130-400) K/uL MPV (7.2-11.7) fL Neut % (Auto) (50.0-75.0) % Lymph % (Auto) (20.0-40.0) % [place] % (Auto) (0.0-10.0) % Eos % (Auto) (0.0-4.0) % Baso % (Auto) (0.0-2.0) % Neut # (1.8-7.0) K/uL Lymph # (1.0-4.3) K/uL [place] # (0.0-0.8) K/uL Eos # (0.0-0.7) K/uL Baso # (0.0-0.2) K/uL Sodium (132-148) mmol/L Potassium (3.6-5.2) mmol/L Chloride (98-107) mmol/L Carbon Dioxide (22-30) mmol/L Anion Gap (10-20) BUN (9-20) mg/dL Creatinine (0.8-1.5) MG/DL Est GFR ( Amer) Est GFR (Non-Af Amer) POC Glucose (mg/dL) 143 H 150 H 152 H (65-110) mg/dL Random Glucose (75-110) mg/dL Calcium (8.6-10.4) mg/dl Magnesium (1.6-2.3) mg/dL Total Bilirubin (0.2-1.3) mg/dL AST (17-59) U/L ALT (21-72) U/L Alkaline Phosphatase (38-126) U/L Total Protein (6.3-8.3) g/dL Albumin (3.5-5.0) g/dL Globulin (2.2-3.9) gm/dL Albumin/Globulin Ratio (1.0-2.1) 08/21/16 08/21/16 08/21/16 Range/Units 06:52 06:52 00:10 WBC 11.0 H (4.8-10.8) K/uL RBC 3.52 L (4.40-5.90) Mil/uL Hgb 9.2 L (12.0-18.0) g/dL Hct 28.1 L (35.0-51.0) % MCV 80.0 (80.0-94.0) fL MCH 26.3 L (27.0-31.0) pg MCHC 32.8 L (33.0-37.0) g/dL RDW 14.1 (11.5-14.5) % Plt Count 400 (130-400) K/uL MPV 8.3 (7.2-11.7) fL Neut % (Auto) 63.9 (50.0-75.0) % Lymph % (Auto) 22.0 (20.0-40.0) % [place] % (Auto) 7.5 (0.0-10.0) % Eos % (Auto) 6.0 H (0.0-4.0) % Baso % (Auto) 0.6 (0.0-2.0) % Neut # 7.0 (1.8-7.0) K/uL Lymph # 2.4 (1.0-4.3) K/uL [place] # 0.8 (0.0-0.8) K/uL Eos # 0.7 (0.0-0.7) K/uL Baso # 0.1 (0.0-0.2) K/uL Sodium 137 (132-148) mmol/L Potassium 3.8 (3.6-5.2) mmol/L Chloride 100 (98-107) mmol/L Carbon Dioxide 28 (22-30) mmol/L Anion Gap 12 (10-20) BUN 11 (9-20) mg/dL Creatinine 0.6 L (0.8-1.5) MG/DL Est GFR ( Amer) > 60 Est GFR (Non-Af Amer) > 60 POC Glucose (mg/dL) 151 H (65-110) mg/dL Random Glucose 133 H (75-110) mg/dL Calcium 8.5 L (8.6-10.4) mg/dl Magnesium 2.1 (1.6-2.3) mg/dL Total Bilirubin 0.6 (0.2-1.3) mg/dL AST 29 (17-59) U/L ALT 40 (21-72) U/L Alkaline Phosphatase 118 (38-126) U/L Total Protein 6.2 L (6.3-8.3) g/dL Albumin 2.9 L D (3.5-5.0) g/dL Globulin 3.2 (2.2-3.9) gm/dL Albumin/Globulin Ratio 0.9 L (1.0-2.1) 08/20/16 Range/Units 21:45 WBC (4.8-10.8) K/uL RBC (4.40-5.90) Mil/uL Hgb (12.0-18.0) g/dL Hct (35.0-51.0) % MCV (80.0-94.0) fL MCH (27.0-31.0) pg MCHC (33.0-37.0) g/dL RDW (11.5-14.5) % Plt Count (130-400) K/uL MPV (7.2-11.7) fL Neut % (Auto) (50.0-75.0) % Lymph % (Auto) (20.0-40.0) % [place] % (Auto) (0.0-10.0) % Eos % (Auto) (0.0-4.0) % Baso % (Auto) (0.0-2.0) % Neut # (1.8-7.0) K/uL Lymph # (1.0-4.3) K/uL [place] # (0.0-0.8) K/uL Eos # (0.0-0.7) K/uL Baso # (0.0-0.2) K/uL Sodium (132-148) mmol/L Potassium (3.6-5.2) mmol/L Chloride (98-107) mmol/L Carbon Dioxide (22-30) mmol/L Anion Gap (10-20) BUN (9-20) mg/dL Creatinine (0.8-1.5) MG/DL Est GFR ( Amer) Est GFR (Non-Af Amer) POC Glucose (mg/dL) 126 H (65-110) mg/dL Random Glucose (75-110) mg/dL Calcium (8.6-10.4) mg/dl Magnesium (1.6-2.3) mg/dL Total Bilirubin (0.2-1.3) mg/dL AST (17-59) U/L ALT (21-72) U/L Alkaline Phosphatase (38-126) U/L Total Protein (6.3-8.3) g/dL Albumin (3.5-5.0) g/dL Globulin (2.2-3.9) gm/dL Albumin/Globulin Ratio (1.0-2.1) Laboratory Results - last 24 hr 08/20/16 08/21/16 08/21/16 21:45 00:10 06:52 WBC 11.0 H RBC 3.52 L Hgb 9.2 L Hct 28.1 L MCV 80.0 MCH 26.3 L MCHC 32.8 L RDW 14.1 Plt Count 400 MPV 8.3 Neut % (Auto) 63.9 Lymph % (Auto) 22.0 [place] % (Auto) 7.5 Eos % (Auto) 6.0 H Baso % (Auto) 0.6 Neut # 7.0 Lymph # 2.4 [place] # 0.8 Eos # 0.7 Baso # 0.1 Sodium Potassium Chloride Carbon Dioxide Anion Gap BUN Creatinine Est GFR ( Amer) Est GFR (Non-Af Amer) POC Glucose (mg/dL) 126 H 151 H Random Glucose Calcium Magnesium Total Bilirubin AST ALT Alkaline Phosphatase Total Protein Albumin Globulin Albumin/Globulin Ratio 08/21/16 08/21/16 08/21/16 06:52 06:59 11:11 WBC RBC Hgb Hct MCV MCH MCHC RDW Plt Count MPV Neut % (Auto) Lymph % (Auto) [place] % (Auto) Eos % (Auto) Baso % (Auto) Neut # Lymph # [place] # Eos # Baso # Sodium 137 Potassium 3.8 Chloride 100 Carbon Dioxide 28 Anion Gap 12 BUN 11 Creatinine 0.6 L Est GFR ( Amer) > 60 Est GFR (Non-Af Amer) > 60 POC Glucose (mg/dL) 152 H 150 H Random Glucose 133 H Calcium 8.5 L Magnesium 2.1 Total Bilirubin 0.6 AST 29 ALT 40 Alkaline Phosphatase 118 Total Protein 6.2 L Albumin 2.9 L D Globulin 3.2 Albumin/Globulin Ratio 0.9 L 08/21/16 16:21 WBC RBC Hgb Hct MCV MCH MCHC RDW Plt Count MPV Neut % (Auto) Lymph % (Auto) [place] % (Auto) Eos % (Auto) Baso % (Auto) Neut # Lymph # [place] # Eos # Baso # Sodium Potassium Chloride Carbon Dioxide Anion Gap BUN Creatinine Est GFR ( Amer) Est GFR (Non-Af Amer) POC Glucose (mg/dL) 143 H Random Glucose Calcium Magnesium Total Bilirubin AST ALT Alkaline Phosphatase Total Protein Albumin Globulin Albumin/Globulin Ratio Critical Care Progress Note - Nutrition Nutrition: Nutrition Category Date Time Status NPO Diet [DIET] Diets 08/17/16 Breakfast Active Attending/Attestation - Attestation I have personally seen and examined this patient.: Yes I have fully participated in the care of the patient.: Yes I have reviewed all pertinent clinical information: Yes Notes (Text): Today: Wednesday, August 17, 2016 The Patient was seen and examined at the bedside, Medical records reviewed, all clinical/lab/hemodynamic/radiographic data were reviewed and management issues were discussed and formulated, Pain issues, skin care, head of the bed elevation, GI/DVT prophylaxis, glycemic control were addressed. I discussed the plan of care with the resident and agree with the above history and physical and assessment/plans as transcribed in Dr. Ceballos note
[2016-08-17] MEDS: [UNRECOGNIZED DRUG - OTHER] OS SCH ×2 (09:11→17:35)
[2016-08-17] MEDS: Fluticasone Nasal 50 mcg/Spray NAS SCH ×2 (09:11→17:34)
[2016-08-17] MEDS ORDERED: Etomidate 20 mg/10ml Inj IV ONE (13:08)
[2016-08-17] MEDS ORDERED: Midazolam 2 MG/2 ML VIAL ONE (13:08)
[2016-08-17] MEDS ORDERED: Sodium Chloride 0.9% 500 ML IV ONE (13:35)
--- NOTE | 2016-08-17 14:57 | CP.PCM.PN ---
Subjective - Date & Time of Evaluation Date of Evaluation: 08/17/16 Time of Evaluation: 14:55 - Subjective Subjective: Mr. Renee Lopez was seen and examined today at bedside in the ICU with his family present. He was noted to be more active and interactive today. He was asking to be seated up and asking for food and water. There were no acute events overnight. Objective - Vital Signs/Intake and Output Vital Signs (last 24 hours): Temp Pulse Resp BP Pulse Ox 100.4 F H 88 12 148/78 100 08/17/16 14:31 08/17/16 14:38 08/17/16 14:38 08/17/16 14:38 08/17/16 14:38 Intake and Output: 08/17/16 08/17/16 06:59 18:59 Intake Total 1989.8 887.9 Output Total 655 400 Balance 1334.8 487.9 - Medications Medications: Current Medications Acetaminophen (Tylenol 650mg/20.3ml Solution Ud) 650 mg NG Q6 PRN PRN Reason: Fever >100.4 F Last Admin: 08/16/16 21:12 Dose: 650 mg Amantadine HCl (Amantadine 100 Mg Cap) 100 mg PO BID [facility] Last Admin: 08/17/16 09:27 Dose: Not Given Famotidine (Pepcid) 20 mg PO DAILY [facility] Last Admin: 08/17/16 10:06 Dose: Not Given Fluticasone Propionate (Flonase) 1 spr BO BID [facility] Last Admin: 08/17/16 09:11 Dose: 1 spray Home Med (Patient's Own Drops) 1 drop OS BID [facility] Last Admin: 08/17/16 09:11 Dose: 1 drop Imipenem/Cilastatin Sodium 500 (mg/ Sodium Chloride) 100 mls @ 100 mls/hr IVPB Q6H [facility] Last Admin: 08/17/16 11:41 Dose: 100 mls/hr Sodium Chloride (Sodium Chloride 0.9%) 1,000 mls @ 100 mls/hr IV .Q10H [facility] Last Admin: 08/17/16 05:10 Dose: 100 mls/hr Dexmedetomidine HCl 200 mcg/ (Sodium Chloride) 50 mls @ 4.11 mls/hr IV TITR PRN ; Protocol; 0.2 MCG/KG/HR PRN Reason: Sedation Last Titration: 08/17/16 11:00 Dose: 0 mcg/kg/hr, 0 mls/hr Insulin Human Regular (Novolin R) 0 unit SC Q6H [facility] PRN Reason: Protocol Last Admin: 08/17/16 12:29 Dose: Not Given Latanoprost (Xalatan Opht) 0 ml OD HS [facility] Last Admin: 08/16/16 22:40 Dose: 2.5 ml Lisinopril (Zestril) 10 mg PO DAILY [facility] Last Admin: 08/17/16 10:16 Dose: Not Given Methylphenidate HCl (Ritalin) 5 mg PO QAM [facility] Last Admin: 08/17/16 10:06 Dose: Not Given Senna/Docusate Sodium (Senokot S 50 Mg-8.6 Mg) 1 tab PO HS [facility] Last Admin: 08/16/16 22:41 Dose: 1 tab Sennosides (Senokot Tab) 8.6 mg NG BID [facility] Last Admin: 08/17/16 09:27 Dose: Not Given Timolol Maleate (Timoptic 0.5% Oph Soln) 0 drop OD DAILY [facility] Last Admin: 08/17/16 09:12 Dose: 1 drop - Labs Labs: 08/17/16 06:14 08/17/16 06:14 PT 11.9 SECONDS (9.7-12.2) 08/17/16 06:14 INR 1.1 08/17/16 06:14 APTT 29 SECONDS (21-34) 08/17/16 06:14 - Neurological Exam Neurological Exam: Awake, CN II-XII Intact, Oriented x3 Neuro motor strength exam: Left Upper Extremity: 4, Right Upper Extremity: 4, Left Lower Extremity: 4, Right Lower Extremity: 4 Assessment and Plan (1) Subdural hemorrhage following injury Assessment & Plan: Continue BP control. Continue Keppra. PT/OT/ST and continue plan per the ICU team. Status: Acute
--- NOTE | 2016-08-17 17:31 | CP.PCM.PN ---
Subjective - Date & Time of Evaluation Date of Evaluation: 08/17/16 Time of Evaluation: 17:28 - Subjective Subjective: trach non verbal able to gesture able to recognize family gestures to try to walk and wants to eat via his mouth currently npo just s/p peg tube Objective - Vital Signs/Intake and Output Vital Signs (last 24 hours): Temp Pulse Resp BP Pulse Ox 100 F H 87 13 157/76 H 99 08/17/16 16:00 08/17/16 17:00 08/17/16 17:00 08/17/16 16:58 08/17/16 17:00 Intake and Output: 08/17/16 08/17/16 06:59 18:59 Intake Total 1989.8 1187.9 Output Total 655 400 Balance 1334.8 787.9 - Medications Medications: Current Medications Acetaminophen (Tylenol 650mg/20.3ml Solution Ud) 650 mg NG Q6 PRN PRN Reason: Fever >100.4 F Last Admin: 08/16/16 21:12 Dose: 650 mg Amantadine HCl (Amantadine 100 Mg Cap) 100 mg PO BID [facility] Last Admin: 08/17/16 09:27 Dose: Not Given Famotidine (Pepcid) 20 mg PO DAILY [facility] Last Admin: 08/17/16 10:06 Dose: Not Given Fluticasone Propionate (Flonase) 1 spr BO BID [facility] Last Admin: 08/17/16 09:11 Dose: 1 spray Home Med (Patient's Own Drops) 1 drop OS BID [facility] Last Admin: 08/17/16 09:11 Dose: 1 drop Imipenem/Cilastatin Sodium 500 (mg/ Sodium Chloride) 100 mls @ 100 mls/hr IVPB Q6H [facility] Last Admin: 08/17/16 17:23 Dose: 100 mls/hr Sodium Chloride (Sodium Chloride 0.9%) 1,000 mls @ 100 mls/hr IV .Q10H [facility] Last Admin: 08/17/16 15:13 Dose: Not Given Dexmedetomidine HCl 200 mcg/ (Sodium Chloride) 50 mls @ 4.11 mls/hr IV TITR PRN ; Protocol; 0.2 MCG/KG/HR PRN Reason: Sedation Last Titration: 08/17/16 11:00 Dose: 0 mcg/kg/hr, 0 mls/hr Insulin Human Regular (Novolin R) 0 unit SC Q6H [facility] PRN Reason: Protocol Last Admin: 08/17/16 12:29 Dose: Not Given Latanoprost (Xalatan Opht) 0 ml OD HS [facility] Last Admin: 08/16/16 22:40 Dose: 2.5 ml Lisinopril (Zestril) 10 mg PO DAILY [facility] Last Admin: 08/17/16 10:16 Dose: Not Given Methylphenidate HCl (Ritalin) 5 mg PO QAM [facility] Last Admin: 08/17/16 10:06 Dose: Not Given Senna/Docusate Sodium (Senokot S 50 Mg-8.6 Mg) 1 tab PO HS [facility] Last Admin: 08/16/16 22:41 Dose: 1 tab Sennosides (Senokot Tab) 8.6 mg NG BID [facility] Last Admin: 08/17/16 09:27 Dose: Not Given Timolol Maleate (Timoptic 0.5% Ophth Soln) 0 drop OD DAILY [facility] Last Admin: 08/17/16 09:12 Dose: 1 drop - Labs Labs: 08/17/16 06:14 08/17/16 06:14 PT 11.9 SECONDS (9.7-12.2) 08/17/16 06:14 INR 1.1 08/17/16 06:14 APTT 29 SECONDS (21-34) 08/17/16 06:14 - Constitutional Appears: Well, Non-toxic - Head Exam Additional comments: scar post op right side left eye no vision - ENT Exam Additional comments: trach vent on cpap now - Respiratory Exam Respiratory Exam: absent: Accessory Muscle Use Additional comments: coarse bs - Cardiovascular Exam Cardiovascular Exam: REGULAR RHYTHM, +S1, +S2 - GI/Abdominal Exam GI & Abdominal Exam: Soft. absent: Tenderness Additional comments: peg - Neurological Exam Neurological Exam: Alert, Awake. absent: Oriented x3 Neuro motor strength exam: Left Upper Extremity: 5, Right Upper Extremity: 5, Left Lower Extremity: 5, Right Lower Extremity: 5 Additional comments: unable to assess orientation gestures non verbal trach - Psychiatric Exam Psychiatric exam: Anxious Assessment and Plan - Assessment and Plan (Free Text) Assessment: (1) Cerebral hemorrhage Assessment & Plan: * Critical care: help appreciated * Neurosurgery: Dr. Bolden on board-->help appreciated * Neurology: Dr Bonner on board-->help appreciated * Head CT (07/30/16): CT Head without contrast: 1. The left orbit appears to be rotated 90 degrees to the right while the right orbit appears to be oriented normally. 2. 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 This results in severe mass effect on the underlying brain, including 1.4 cm of leftward midline shift and compression of the right lateral ventricle. Asymmetric enlargement of the right temporal horn suggestive of early entrapment. * Head CT (08/02/16): satisfactory postoperative status following craniotomy, evacuation of large extra-axial fluid collection on the right. No new intra- axial abnormalities. Improved edema, mass effect. No evidence of acute infarction. * Head CT (08/04/16) showed acute extra-axial hemorrhage with blood layering in the extra-axial space. Increase in sulcal effacement, mass effect and midline shift. There is no evidence of herniation. This follows removal of the surgical drain identified previously. * Head CT (08/06/16): status post surgical intervention, placement of drainage catheter into the extra-axial space at the site prior subdural hematoma edema, mass effect and midline shift have improved considerably. No new or significant findings identified. * Head CT (08/07/16): status post drainage of right subdural hematoma. Drainage catheter is nora in the extra axial space. Air and fluid in the usbdral space with an average thickeness of 9mm * Head CT (08/10/16): status post removal right sided subdural drainage catheter. Small residual mixed attenuation subdural collection with diminished amount of subdural air. Persistent mild mass effect with compressive effects on the right cerebral hemisphere. Minial right to left midline shift. Dysconjugate gaze and/ or strabismus. 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 status post right sided cataract surgery * Head CT (08/13/16): redemonstrated to small to medium sized hypodense of residual right sided subdural hematoma. Minmindal right to left midline shift. Previously noted small amount of subdural air on prior study has undegone further resoprtion. Persistent mild subjacent mass effect with compression of cerebral sulci and mild compression of right lateral ventricle. No evidence of obstructive hydrocephalus. * POD: s/p Kyler hole and evacuation of subdural hemorrhage with Elrama and David drain * POD s/p right frontotemporal craniotomy; evacuation of acute subdural drain present * Removal of drain on 08/03/16 * S/p trach 08/15/16 * Keppra 500mg IVPB Q 12hours for seizure prophylaxis * Per neurosurgery, prefers patient off anticoagulation * continue Neurochecks * on NS 100cc/hr * Recommended by Neurology, for Amantidine and Ritalin, and NS 100cc/hr Status: Acute (2) Acute Respiratory Failure Assessment & Plan: * Multiple intubation/Reintubations during hospitalization * now trach - trial weaning off vent started on cpap * General Surgery (Dr. Levin) on board-->discussed with patient's nephew and daughter 08/15/16 * POD 2: diagnostic bronchoscopy, percutaneous tracheostomy * POD 1: peg tube Status: Acute (3) Hypertension Assessment & Plan: * NS 100c cc/hr * Lisinopril 10mg PO daily * Monitor vitals signs Status: Chronic (4) Diabetes Assessment & Plan: * [id number]: 5.9 * Controlled * Accuchecks Q6 hours * Regular insulin sliding scale subq Q 6hours * on feedings Status: Chronic (5) ESBL+ UTI; Leukocytosis Assessment & Plan: * Blood cultures X2: negative thus far urine culture (08/12/16) * Elevated white count in 31-->24-->24-->14-->11.9-->11.3 improved today to 9.5 on 08/17 * D/C Cefepime 1 gram Q 12hour, started on Primaxin IV and held Vancomycin 1g IV Q 12hours evening dose; pending trough level * Febrile, leukocytosis * UA: pyuria, hematuria, +esterase; urine culture: gram negative bebo pending speciation * Fever: on hypothermic blanket * Tmax: 100.2F * Contact isolation (6) Prophylactic measure Assessment & Plan: * Neurosurgery prefers patient off anticoagulation per prior discussion with ICU * Pepcid 20mg PO daily * No benzos * Seizure prophylaxis * s/p trach * PICC line * Feeding tube placed today
[2016-08-17] MEDS: Docusate-Senna 50 mg-8.6 mg Tab PO SCH (22:12)
[2016-08-17] MEDS: Latanoprost 2.5 ml Opht Soln OD SCH (22:13)
[2016-08-18] MEDS: Sodium Chloride 0.9% 1,000 ML IV SCH ×2 (02:34→13:12)
[2016-08-18 04:34] LABS: ABG ALLEN TEST POS; ARTERIAL BLOOD HGB O2 SAT 96.7 % (95.0-98.0); CARBOXYHEMOGLOBIN 1.5 % (0.5-1.5); DRAW SITE RR; HHB 0.6 % (0.0-5.0); METHEMOGLOBIN 1.1 % (0.0-3.0)
[2016-08-18] MEDS: (Novolin R) Insulin Human Regular 100 units/ml vial SC SCH ×4 (06:00→18:27)
[2016-08-18 06:37] LABS: BASO # 0.1 K/uL (0.0-0.2); BASO % 0.8 % (0.0-2.0); EOS # 0.4 K/uL (0.0-0.7); EOS % 3.7 % (0.0-4.0); HEMATOCRIT 25.6 % (35.0-51.0); LYMPH # 2.4 K/uL (1.0-4.3); LYMPH % 20.2 % (20.0-40.0); MEAN CELL VOLUME 79.3 fL (80.0-94.0); MEAN CORPUSCULAR HEMOGLOBIN 26.1 pg (27.0-31.0); MEAN PLATELET VOLUME 8.4 fL (7.2-11.7); MONO # 0.9 K/uL (0.0-0.8); MONO % 7.6 % (0.0-10.0); RED CELL DISTRIBUTION WIDTH 14.2 % (11.5-14.5); WHITE BLOOD COUNT 11.9 K/uL (4.8-10.8)
[2016-08-18 06:39] LABS: INR 1.1
[2016-08-18 06:51] LABS: CHLORIDE 102 mmol/L (98-107); SODIUM 137 mmol/L (132-148)
[2016-08-18 06:53] LABS: GFR AFRICAN-AMERICAN > 60
[2016-08-18 06:54] LABS: ALB/GLOB RATIO 0.7 (1.0-2.1); ALKALINE PHOSPHATASE 147 U/L (38-126); ALT/SGPT 52 U/L (21-72); AST/SGOT 40 U/L (17-59); BILIRUBIN,TOTAL 0.5 mg/dL (0.2-1.3); BLOOD UREA NITROGEN 8 mg/dL (9-20); CARBON DIOXIDE 27 mmol/L (22-30); GLUCOSE,RANDOM 118 mg/dL (75-110); PHOSPHOROUS 3.3 mg/dL (2.5-4.5); TOTAL PROTEIN 5.4 g/dL (6.3-8.3)
[2016-08-18 06:55] LABS: CALCIUM 7.6 mg/dl (8.6-10.4)
[2016-08-18] MEDS ORDERED: Potassium Chloride 20 mEq/15 ml LIQ UD PO SCH (08:00)
[2016-08-18] MEDS ORDERED: Potassium Chloride 20 mEq/15 ml LIQ UD PO ONE (08:00)
[2016-08-18] MEDS: Potassium Chloride 20 mEq/15 ml LIQ UD PO SCH ×2 (08:21→12:25)
[2016-08-18] MEDS: Fluticasone Nasal 50 mcg/Spray NAS SCH ×2 (10:03→18:28)
[2016-08-18] MEDS: [UNRECOGNIZED DRUG - OTHER] OS SCH ×2 (10:04→17:56)
--- NOTE | 2016-08-18 10:51 | CP.PCM.PN ---
Subjective - Date & Time of Evaluation Date of Evaluation: 08/18/16 Time of Evaluation: 10:46 - Subjective Subjective: Seen and examined at bedside, Tmax 100F rectal. Awake and alert. Still on CPAP via trache tube from the ventilator. Breathing well. Receiving PEG tube feeding but showing signs of wanting to eat. No garzon catheter. Objective - Vital Signs/Intake and Output Vital Signs (last 24 hours): Temp Pulse Resp BP Pulse Ox 100 F H 95 H 16 144/76 98 08/18/16 08:00 08/18/16 08:58 08/18/16 08:58 08/18/16 08:58 08/18/16 08:58 Intake and Output: 08/18/16 08/18/16 06:59 18:59 Intake Total 1685 225 Balance 1685 225 - Medications Medications: Current Medications Acetaminophen (Tylenol 650mg/20.3ml Solution Ud) 650 mg NG Q6 PRN PRN Reason: Fever >100.4 F Last Admin: 08/16/16 21:12 Dose: 650 mg Amantadine HCl (Amantadine 100 Mg Cap) 100 mg PO BID [facility] Last Admin: 08/18/16 10:03 Dose: 100 mg Famotidine (Pepcid) 20 mg PO DAILY [facility] Last Admin: 08/18/16 10:02 Dose: 20 mg Fluticasone Propionate (Flonase) 1 spr BO BID [facility] Last Admin: 08/18/16 10:03 Dose: 1 spray Home Med (Patient's Own Drops) 1 drop OS BID [facility] Last Admin: 08/18/16 10:04 Dose: 1 drop Imipenem/Cilastatin Sodium 500 (mg/ Sodium Chloride) 100 mls @ 100 mls/hr IVPB Q6H [facility] Last Admin: 08/18/16 05:00 Dose: 100 mls/hr Dexmedetomidine HCl 200 mcg/ (Sodium Chloride) 50 mls @ 4.11 mls/hr IV TITR PRN ; Protocol; 0.2 MCG/KG/HR PRN Reason: Sedation Last Titration: 08/17/16 11:00 Dose: 0 mcg/kg/hr, 0 mls/hr Sodium Chloride (Sodium Chloride 0.9%) 1,000 mls @ 50 mls/hr IV .Q20H [facility] Insulin Human Regular (Novolin R) 0 unit SC Q6H [facility] PRN Reason: Protocol Last Admin: 08/18/16 06:00 Dose: Not Given Latanoprost (Xalatan Opht) 0 ml OD HS [facility] Last Admin: 08/17/16 22:13 Dose: 2.5 ml Lisinopril (Zestril) 10 mg PO DAILY [facility] Last Admin: 08/18/16 10:02 Dose: 10 mg Methylphenidate HCl (Ritalin) 5 mg PO QAM [facility] Last Admin: 08/18/16 10:02 Dose: 5 mg Potassium Chloride (Potassium Chloride Oral Soln) 40 meq PO Q4 [facility] Stop: 08/18/16 12:01 Last Admin: 08/18/16 08:21 Dose: 40 meq Senna/Docusate Sodium (Senokot S 50 Mg-8.6 Mg) 1 tab PO HS [facility] Last Admin: 08/17/16 22:12 Dose: 1 tab Sennosides (Senokot Tab) 8.6 mg NG BID [facility] Last Admin: 08/18/16 10:03 Dose: 8.6 mg Timolol Maleate (Timoptic 0.5% Ophth Soln) 0 drop OD DAILY [facility] Last Admin: 08/18/16 10:04 Dose: 1 drop - Labs Labs: 08/18/16 06:26 08/18/16 06:24 PT 12.4 SECONDS (9.7-12.2) H 08/18/16 06:26 INR 1.1 08/18/16 06:26 APTT 29 SECONDS (21-34) 08/18/16 06:26 - Constitutional Appears: Non-toxic, No Acute Distress - Head Exam Head Exam: NORMOCEPHALIC Additional comments: Bandage at right tempero-parietal of head region of Craneotomy. 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 - ENT Exam ENT Exam: Mucous Membranes Moist, Normal External Ear Exam - Neck Exam Additional comments: Tracheostomy with tube in place, with base clean and dry. - Respiratory Exam Additional comments: Decreased breath sounds in both lung garcia, no Rhonchi nor wheezes - Cardiovascular Exam Cardiovascular Exam: REGULAR RHYTHM, RRR, +S1, +S2. absent: Gallop, JVD - GI/Abdominal Exam GI & Abdominal Exam: Normal Bowel Sounds Additional comments: PEG tube at right abdomen with PEG feed going. - Extremities Exam Extremities Exam: Normal Inspection. absent: Joint Swelling - Back Exam Back Exam: NORMAL INSPECTION - Neurological Exam Neurological Exam: Alert, Awake, CN II-XII Intact - Psychiatric Exam Psychiatric exam: Flat Affect - Skin Skin Exam: Dry, Normal Color, Warm Assessment and Plan - Assessment and Plan (Free Text) Plan: (1) Cerebral hemorrhage Assessment & Plan: * Critical care: help appreciated * Neurosurgery: Dr. Bolden on board-->help appreciated * Neurology: Dr Bonner on board-->help appreciated * Head CT (07/30/16): CT Head without contrast: 1. The left orbit appears to be rotated 90 degrees to the right while the right orbit appears to be oriented normally. 2. 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 This results in severe mass effect on the underlying brain, including 1.4 cm of leftward midline shift and compression of the right lateral ventricle. Asymmetric enlargement of the right temporal horn suggestive of early entrapment. * Head CT (08/02/16): satisfactory postoperative status following craniotomy, evacuation of large extra-axial fluid collection on the right. No new intra- axial abnormalities. Improved edema, mass effect. No evidence of acute infarction. * Head CT (08/04/16) showed acute extra-axial hemorrhage with blood layering in the extra-axial space. Increase in sulcal effacement, mass effect and midline shift. There is no evidence of herniation. This follows removal of the surgical drain identified previously. * Head CT (08/06/16): status post surgical intervention, placement of drainage catheter into the extra-axial space at the site prior subdural hematoma edema, mass effect and midline shift have improved considerably. No new or significant findings identified. * Head CT (08/07/16): status post drainage of right subdural hematoma. Drainage catheter is nora in the extra axial space. Air and fluid in the usbdral space with an average thickeness of 9mm * Head CT (08/10/16): status post removal right sided subdural drainage catheter. Small residual mixed attenuation subdural collection with diminished amount of subdural air. Persistent mild mass effect with compressive effects on the right cerebral hemisphere. Minial right to left midline shift. Dysconjugate gaze and/ or strabismus. 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 status post right sided cataract surgery * Head CT (08/13/16): redemonstrated to small to medium sized hypodense of residual right sided subdural hematoma. Minmindal right to left midline shift. Previously noted small amount of subdural air on prior study has undegone further resoprtion. Persistent mild subjacent mass effect with compression of cerebral sulci and mild compression of right lateral ventricle. No evidence of obstructive hydrocephalus. * POD: s/p [place] hole and evacuation of subdural hemorrhage with Coffey and David drain * POD s/p right frontotemporal craniotomy; evacuation of acute subdural drain present * Removal of drain on 08/03/16 * S/p trach 08/15/16 * Keppra 500mg IVPB Q 12hours for seizure prophylaxis * Per neurosurgery, prefers patient off anticoagulation * continue Neurochecks * on NS 100cc/hr * Recommended by Neurology, for Amantidine and Ritalin, and NS 100cc/hr Status: Acute (2) Acute Respiratory Failure Assessment & Plan: * Multiple intubation/Reintubations during hospitalization * now trach - trial weaning off vent started on cpap * General Surgery (Dr. Levin) on board-->discussed with patient's nephew and daughter 08/15/16 * POD 3: diagnostic bronchoscopy, percutaneous tracheostomy * POD 1: peg tube Status: Acute (3) Hypertension Assessment & Plan: * NS 100c cc/hr * Lisinopril 10mg PO daily * Monitor vitals signs Status: Chronic (4) Diabetes Assessment & Plan: * [id number]: 5.9 * Controlled * Accuchecks Q6 hours * Regular insulin sliding scale subq Q 6hours * on Tube feedings Status: Chronic (5) ESBL+ UTI; Leukocytosis Assessment & Plan: * Blood cultures X2: negative thus far urine culture (08/12/16) * Elevated white count in 31-->24-->24-->14-->11.9-->11.3 improved today to 9.5 on 08/17 * D/C Cefepime 1 gram Q 12hour, started on Primaxin IV and held Vancomycin 1g IV Q 12hours evening dose; pending trough level stat * Febrile, leukocytosis improving * UA: pyuria, hematuria, +esterase; urine culture: gram negative bebo pending speciation * Fever: on hypothermic blanket * Tmax: 100F * Contact isolation (6) Anemia - One unit of PRBC transfused on 08/17/16 Hb improved from 7.7g to8.4 - Follow Hb (7) Prophylactic measure Assessment & Plan: * Neurosurgery prefers patient off anticoagulation per prior discussion with ICU * Pepcid 20mg PO daily * No benzos * Seizure prophylaxis * s/p trach * PICC line * Feeding tube placed 08/17/09
--- NOTE | 2016-08-18 11:35 | CP.PCM.PN ---
Subjective - Date & Time of Evaluation Date of Evaluation: 08/18/16 Time of Evaluation: 11:32 - Subjective Subjective: Covering DR. WICK PEG site intact and infusing well Objective - Vital Signs/Intake and Output Vital Signs (last 24 hours): Temp Pulse Resp BP Pulse Ox 100 F H 86 13 137/81 93 L 08/18/16 08:00 08/18/16 11:00 08/18/16 11:00 08/18/16 10:58 08/18/16 11:00 Intake and Output: 08/18/16 08/18/16 06:59 18:59 Intake Total 1685 225 Balance 1685 225 - Medications Medications: Current Medications Acetaminophen (Tylenol 650mg/20.3ml Solution Ud) 650 mg NG Q6 PRN PRN Reason: Fever >100.4 F Last Admin: 08/16/16 21:12 Dose: 650 mg Amantadine HCl (Amantadine 100 Mg Cap) 100 mg PO BID [facility] Last Admin: 08/18/16 10:03 Dose: 100 mg Famotidine (Pepcid) 20 mg PO DAILY [facility] Last Admin: 08/18/16 10:02 Dose: 20 mg Fluticasone Propionate (Flonase) 1 spr BO BID [facility] Last Admin: 08/18/16 10:03 Dose: 1 spray Home Med (Patient's Own Drops) 1 drop OS BID [facility] Last Admin: 08/18/16 10:04 Dose: 1 drop Imipenem/Cilastatin Sodium 500 (mg/ Sodium Chloride) 100 mls @ 100 mls/hr IVPB Q6H [facility] Last Admin: 08/18/16 05:00 Dose: 100 mls/hr Dexmedetomidine HCl 200 mcg/ (Sodium Chloride) 50 mls @ 4.11 mls/hr IV TITR PRN ; Protocol; 0.2 MCG/KG/HR PRN Reason: Sedation Last Titration: 08/17/16 11:00 Dose: 0 mcg/kg/hr, 0 mls/hr Sodium Chloride (Sodium Chloride 0.9%) 1,000 mls @ 50 mls/hr IV .Q20H [facility] Insulin Human Regular (Novolin R) 0 unit SC Q6H [facility] PRN Reason: Protocol Last Admin: 08/18/16 06:00 Dose: Not Given Latanoprost (Xalatan Opht) 0 ml OD HS [facility] Last Admin: 08/17/16 22:13 Dose: 2.5 ml Lisinopril (Zestril) 10 mg PO DAILY [facility] Last Admin: 08/18/16 10:02 Dose: 10 mg Methylphenidate HCl (Ritalin) 5 mg PO QAM [facility] Last Admin: 08/18/16 10:02 Dose: 5 mg Potassium Chloride (Potassium Chloride Oral Soln) 40 meq PO Q4 [facility] Stop: 08/18/16 12:01 Last Admin: 08/18/16 08:21 Dose: 40 meq Senna/Docusate Sodium (Senokot S 50 Mg-8.6 Mg) 1 tab PO HS [facility] Last Admin: 08/17/16 22:12 Dose: 1 tab Sennosides (Senokot Tab) 8.6 mg NG BID [facility] Last Admin: 08/18/16 10:03 Dose: 8.6 mg Timolol Maleate (Timoptic 0.5% Ophth Soln) 0 drop OD DAILY [facility] Last Admin: 08/18/16 10:04 Dose: 1 drop - Labs Labs: 08/18/16 06:26 08/18/16 06:24 PT 12.4 SECONDS (9.7-12.2) H 08/18/16 06:26 INR 1.1 08/18/16 06:26 APTT 29 SECONDS (21-34) 08/18/16 06:26 - Constitutional Appears: No Acute Distress - Respiratory Exam Respiratory Exam: NORMAL BREATHING PATTERN - Cardiovascular Exam Cardiovascular Exam: REGULAR RHYTHM, +S1 - GI/Abdominal Exam GI & Abdominal Exam: Soft, Hypoactive Bowel Sounds. absent: Tenderness Additional comments: GT intact and dressing clean and dry. Assessment and Plan (1) Dysphagia as late effect of cerebrovascular accident (CVA) Status: Acute (2) S/P percutaneous endoscopic gastrostomy (PEG) tube placement Assessment & Plan: Continue with wound care and aspiration precautions Advance feedings to meet needs Flush tube frequently and after all medication boluses Will follow as needed. Status: Acute (3) Subdural hemorrhage following injury Status: Acute
--- NOTE | 2016-08-18 17:57 | CP.CCUPN ---
CCU Subjective - Physician Review Events Since Last Encounter (Free Text): 08/18/16 17:55 Patient seen and examined in the intensive care unit. Case discussed with house staff in the morning rounds. Status post tracheostomy and tolerating CPAP since yesterday Tolerating PEG feeding also Awake and responsive Afebrile being Treated for ESBL in the urine CCU Objective - Vital Signs / Intake & Output Vital Signs (Last 4 hours): Vital Signs Temp Pulse Resp BP Pulse Ox 08/18/16 16:00 100.1 F H 08/18/16 15:58 83 16 154/89 H 97 08/18/16 15:00 86 100 08/18/16 14:58 84 157/97 H 100 08/18/16 13:58 81 21 146/82 100 Intake and Output (Last 8hrs): Intake & Output 08/18/16 08/18/16 08/18/16 06:59 14:59 22:59 Intake Total 1205 1015 200 Balance 1205 1015 200 Weight 188 lb 7.924 oz Intake: Intake, IV Amount 1000 500 100 Right PICC 800 500 100 Right Proximal Port PICC 200 Tube Feeding 205 315 100 Other 200 - Physical Exam Head: Positive for: Normocephalic, Other (bandages in place and C/D/I, ET Tube in place). 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 Negative for: EOMI Conjunctiva: Positive for: Normal Mouth: Positive for: Moist Mucous Membranes Pharnyx: Positive for: Other (gag and cough reflexes intact) Neck: Negative for: JVD Respiratory/Chest: Positive for: Clear to Auscultation, Good Air Exchange. Negative for: Respiratory Distress, Accessory Muscle Use, Wheezes, Rales Cardiovascular: Positive for: Regular Rate and Rhythm, Normal S1, S2, Peripheal Pulses Present. Negative for: Murmurs Abdomen: Positive for: Normal Bowel Sounds. Negative for: Tenderness, Distention, Rebound, Guarding Upper Extremity: Positive for: Normal Inspection, NORMAL PULSES, Neurovascularly Intact. Negative for: Cyanosis, Edema Lower Extremity: Positive for: Normal Inspection, NORMAL PULSES, Neurovascularly Intact. Negative for: Edema Neurological: Positive for: Motor Func Grossly Intact, Other (brainstem reflexes intact, more awake and responsive, moves all limbs spontaneously ) Skin: Positive for: Warm, Dry Psychiatric: Positive for: Alert, Agitated - Medications Active Medications: Active Medications Generic Name Dose Route Start Last Admin Trade Name Freq PRN Reason Stop Dose Admin Acetaminophen 650 mg 08/12/16 10:00 08/16/16 21:12 Tylenol 650mg/20.3ml Solution Ud NG 650 mg Q6 PRN Administration Fever >100.4 F Amantadine HCl 100 mg 08/14/16 18:00 08/18/16 10:03 Amantadine 100 Mg Cap PO 100 mg BID GORDO Administration Famotidine 20 mg 08/12/16 10:00 08/18/16 10:02 Pepcid PO 20 mg DAILY GORDO Administration Fluticasone Propionate 1 spr 08/11/16 18:00 08/18/16 10:03 Flonase BO 1 spray BID GORDO Administration Home Med 1 drop 08/07/16 18:00 08/18/16 10:04 Patient's Own Drops OS 1 drop BID GORDO Administration Imipenem/Cilastatin Sodium 500 100 mls @ 100 mls/hr 08/14/16 12:00 08/18/16 12:26 mg/ Sodium Chloride IVPB 100 mls/hr Q6H GORDO Administration Dexmedetomidine HCl 200 mcg/ 50 mls @ 4.11 mls/hr 08/16/16 10:41 08/17/16 11: 00 Sodium Chloride IV 0 mcg/kg/hr TITR PRN 0 mls/hr Sedation Titration Protocol 0.2 MCG/KG/HR Sodium Chloride 1,000 mls @ 50 mls/hr 08/18/16 07:30 08/18/16 13:12 Sodium Chloride 0.9% IV 50 mls/hr .Q20H GORDO Administration Insulin Human Regular 0 unit 07/31/16 12:00 08/18/16 12:27 Novolin R SC 2 unit Q6H GORDO Administration Protocol Latanoprost 0 ml 07/31/16 22:00 08/17/16 22:13 Xalatan Opht OD 2.5 ml HS GORDO Administration Lisinopril 10 mg 08/15/16 16:35 08/18/16 10:02 Zestril PO 10 mg DAILY GORD[facility] Administration Methylphenidate HCl 5 mg 08/15/16 10:00 08/18/16 10:02 Ritalin PO 5 mg QAM GORDO Administration Senna/Docusate Sodium 1 tab 08/11/16 22:00 08/17/16 22:12 Senokot S 50 Mg-8.6 Mg PO 1 tab HS GORDO Administration Sennosides 8.6 mg 08/08/16 00:43 08/18/16 10:03 Senokot Tab NG 8.6 mg BID GORDO Administration Timolol Maleate 0 drop 07/31/16 11:15 08/18/16 10:04 Timoptic 0.5% Ophth Soln OD 1 drop DAILY GORDO Administration - Patient Studies Lab Studies: Microbiology Studies 08/17/16 Unknown Urine Culture - Final Urine No Growth (<1,000 CFU/ML) Lab Studies 08/18/16 08/18/16 08/18/16 Range/Units 11:50 06:26 06:26 WBC 11.9 H (4.8-10.8) K/uL RBC 3.23 L (4.40-5.90) Mil/uL Hgb 8.4 L (12.0-18.0) g/dL Hct 25.6 L (35.0-51.0) % MCV 79.3 L (80.0-94.0) fL MCH 26.1 L (27.0-31.0) pg MCHC 33.0 (33.0-37.0) g/dL RDW 14.2 (11.5-14.5) % Plt Count 409 H (130-400) K/uL MPV 8.4 (7.2-11.7) fL Neut % (Auto) 67.7 (50.0-75.0) % Lymph % (Auto) 20.2 (20.0-40.0) % Rock % (Auto) 7.6 (0.0-10.0) % Eos % (Auto) 3.7 (0.0-4.0) % Baso % (Auto) 0.8 (0.0-2.0) % Neut # 8.1 H (1.8-7.0) K/uL Lymph # 2.4 (1.0-4.3) K/uL Rock # 0.9 H (0.0-0.8) K/uL Eos # 0.4 (0.0-0.7) K/uL Baso # 0.1 (0.0-0.2) K/uL PT 12.4 H (9.7-12.2) SECONDS INR 1.1 APTT 29 (21-34) SECONDS Puncture Site pCO2 (35-45) mm/Hg pO2 (80-100) mm/Hg HCO3 (21-28) mmol/L ABG pH (7.35-7.45) ABG Total CO2 (22-28) mmol/L ABG O2 Saturation (95-98) % ABG Base Excess (-2.0-3.0) mmol/L ABG Hemoglobin (11.7-17.4) g/dL ABG Carboxyhemoglobin (0.5-1.5) % POC ABG HHb (Measured) (0.0-5.0) % ABG Methemoglobin (0.0-3.0) % David Test A-a O2 Difference mm/Hg Respiratory Index Hgb O2 Saturation (95.0-98.0) % FiO2 % Pressure Support CPAP Sodium (132-148) mmol/L Potassium (3.6-5.2) mmol/L Chloride (98-107) mmol/L Carbon Dioxide (22-30) mmol/L Anion Gap (10-20) BUN (9-20) mg/dL Creatinine (0.8-1.5) MG/DL Est GFR ( Amer) Est GFR (Non-Af Amer) POC Glucose (mg/dL) 165 H (65-110) mg/dL Random Glucose (75-110) mg/dL Calcium (8.6-10.4) mg/dl Phosphorus (2.5-4.5) mg/dL Magnesium (1.6-2.3) mg/dL Total Bilirubin (0.2-1.3) mg/dL AST (17-59) U/L ALT (21-72) U/L Alkaline Phosphatase (38-126) U/L Total Protein (6.3-8.3) g/dL Albumin (3.5-5.0) g/dL Globulin (2.2-3.9) gm/dL Albumin/Globulin Ratio (1.0-2.1) 08/18/16 08/18/16 08/18/16 Range/Units 06:24 05:33 04:20 WBC (4.8-10.8) K/uL RBC (4.40-5.90) Mil/uL Hgb (12.0-18.0) g/dL Hct (35.0-51.0) % MCV (80.0-94.0) fL MCH (27.0-31.0) pg MCHC (33.0-37.0) g/dL RDW (11.5-14.5) % Plt Count (130-400) K/uL MPV (7.2-11.7) fL Neut % (Auto) (50.0-75.0) % Lymph % (Auto) (20.0-40.0) % Rock % (Auto) (0.0-10.0) % Eos % (Auto) (0.0-4.0) % Baso % (Auto) (0.0-2.0) % Neut # (1.8-7.0) K/uL Lymph # (1.0-4.3) K/uL Rock # (0.0-0.8) K/uL Eos # (0.0-0.7) K/uL Baso # (0.0-0.2) K/uL PT (9.7-12.2) SECONDS INR APTT (21-34) SECONDS Puncture Site Rr pCO2 33 L (35-45) mm/Hg pO2 126 H (80-100) mm/Hg HCO3 28.2 H (21-28) mmol/L ABG pH 7.52 H (7.35-7.45) ABG Total CO2 27.9 (22-28) mmol/L ABG O2 Saturation 99.4 H (95-98) % ABG Base Excess 4.2 H (-2.0-3.0) mmol/L ABG Hemoglobin 12.1 (11.7-17.4) g/dL ABG Carboxyhemoglobin 1.5 (0.5-1.5) % POC ABG HHb (Measured) 0.6 (0.0-5.0) % ABG Methemoglobin 1.1 (0.0-3.0) % David Test Pos A-a O2 Difference 47.0 mm/Hg Respiratory Index 0.4 Hgb O2 Saturation 96.7 (95.0-98.0) % FiO2 30.0 % Pressure Support 5 CPAP 5 Sodium 137 (132-148) mmol/L Potassium 3.0 L (3.6-5.2) mmol/L Chloride 102 (98-107) mmol/L Carbon Dioxide 27 (22-30) mmol/L Anion Gap 11 (10-20) BUN 8 L (9-20) mg/dL Creatinine 0.6 L (0.8-1.5) MG/DL Est GFR ( Amer) > 60 Est GFR (Non-Af Amer) > 60 POC Glucose (mg/dL) 123 H (65-110) mg/dL Random Glucose 118 H (75-110) mg/dL Calcium 7.6 L (8.6-10.4) mg/dl Phosphorus 3.3 (2.5-4.5) mg/dL Magnesium 2.0 (1.6-2.3) mg/dL Total Bilirubin 0.5 (0.2-1.3) mg/dL AST 40 (17-59) U/L ALT 52 (21-72) U/L Alkaline Phosphatase 147 H (38-126) U/L Total Protein 5.4 L (6.3-8.3) g/dL Albumin 2.3 L (3.5-5.0) g/dL Globulin 3.1 (2.2-3.9) gm/dL Albumin/Globulin Ratio 0.7 L (1.0-2.1) 08/18/16 Range/Units 00:06 WBC (4.8-10.8) K/uL RBC (4.40-5.90) Mil/uL Hgb (12.0-18.0) g/dL Hct (35.0-51.0) % MCV (80.0-94.0) fL MCH (27.0-31.0) pg MCHC (33.0-37.0) g/dL RDW (11.5-14.5) % Plt Count (130-400) K/uL MPV (7.2-11.7) fL Neut % (Auto) (50.0-75.0) % Lymph % (Auto) (20.0-40.0) % Rock % (Auto) (0.0-10.0) % Eos % (Auto) (0.0-4.0) % Baso % (Auto) (0.0-2.0) % Neut # (1.8-7.0) K/uL Lymph # (1.0-4.3) K/uL Rock # (0.0-0.8) K/uL Eos # (0.0-0.7) K/uL Baso # (0.0-0.2) K/uL PT (9.7-12.2) SECONDS INR APTT (21-34) SECONDS Puncture Site pCO2 (35-45) mm/Hg pO2 (80-100) mm/Hg HCO3 (21-28) mmol/L ABG pH (7.35-7.45) ABG Total CO2 (22-28) mmol/L ABG O2 Saturation (95-98) % ABG Base Excess (-2.0-3.0) mmol/L ABG Hemoglobin (11.7-17.4) g/dL ABG Carboxyhemoglobin (0.5-1.5) % POC ABG HHb (Measured) (0.0-5.0) % ABG Methemoglobin (0.0-3.0) % David Test A-a O2 Difference mm/Hg Respiratory Index Hgb O2 Saturation (95.0-98.0) % FiO2 % Pressure Support CPAP Sodium (132-148) mmol/L Potassium (3.6-5.2) mmol/L Chloride (98-107) mmol/L Carbon Dioxide (22-30) mmol/L Anion Gap (10-20) BUN (9-20) mg/dL Creatinine (0.8-1.5) MG/DL Est GFR ( Amer) Est GFR (Non-Af Amer) POC Glucose (mg/dL) 122 H (65-110) mg/dL Random Glucose (75-110) mg/dL Calcium (8.6-10.4) mg/dl Phosphorus (2.5-4.5) mg/dL Magnesium (1.6-2.3) mg/dL Total Bilirubin (0.2-1.3) mg/dL AST (17-59) U/L ALT (21-72) U/L Alkaline Phosphatase (38-126) U/L Total Protein (6.3-8.3) g/dL Albumin (3.5-5.0) g/dL Globulin (2.2-3.9) gm/dL Albumin/Globulin Ratio (1.0-2.1) Laboratory Results - last 24 hr 08/18/16 08/18/16 08/18/16 00:06 04:20 05:33 WBC RBC Hgb Hct MCV MCH MCHC RDW Plt Count MPV Neut % (Auto) Lymph % (Auto) Rock % (Auto) Eos % (Auto) Baso % (Auto) Neut # Lymph # Rock # Eos # Baso # PT INR APTT Puncture Site Rr pCO2 33 L pO2 126 H HCO3 28.2 H ABG pH 7.52 H ABG Total CO2 27.9 ABG O2 Saturation 99.4 H ABG Base Excess 4.2 H ABG Hemoglobin 12.1 ABG Carboxyhemoglobin 1.5 POC ABG HHb (Measured) 0.6 ABG Methemoglobin 1.1 David Test Pos A-a O2 Difference 47.0 Respiratory Index 0.4 Hgb O2 Saturation 96.7 FiO2 30.0 Pressure Support 5 CPAP 5 Sodium Potassium Chloride Carbon Dioxide Anion Gap BUN Creatinine Est GFR ( Amer) Est GFR (Non-Af Amer) POC Glucose (mg/dL) 122 H 123 H Random Glucose Calcium Phosphorus Magnesium Total Bilirubin AST ALT Alkaline Phosphatase Total Protein Albumin Globulin Albumin/Globulin Ratio 08/18/16 08/18/16 08/18/16 06:24 06:26 06:26 WBC 11.9 H RBC 3.23 L Hgb 8.4 L Hct 25.6 L MCV 79.3 L MCH 26.1 L MCHC 33.0 RDW 14.2 Plt Count 409 H MPV 8.4 Neut % (Auto) 67.7 Lymph % (Auto) 20.2 Rock % (Auto) 7.6 Eos % (Auto) 3.7 Baso % (Auto) 0.8 Neut # 8.1 H Lymph # 2.4 Rock # 0.9 H Eos # 0.4 Baso # 0.1 PT 12.4 H INR 1.1 APTT 29 Puncture Site pCO2 pO2 HCO3 ABG pH ABG Total CO2 ABG O2 Saturation ABG Base Excess ABG Hemoglobin ABG Carboxyhemoglobin POC ABG HHb (Measured) ABG Methemoglobin David Test A-a O2 Difference Respiratory Index Hgb O2 Saturation FiO2 Pressure Support CPAP Sodium 137 Potassium 3.0 L Chloride 102 Carbon Dioxide 27 Anion Gap 11 BUN 8 L Creatinine 0.6 L Est GFR ( Amer) > 60 Est GFR (Non-Af Amer) > 60 POC Glucose (mg/dL) Random Glucose 118 H Calcium 7.6 L Phosphorus 3.3 Magnesium 2.0 Total Bilirubin 0.5 AST 40 ALT 52 Alkaline Phosphatase 147 H Total Protein 5.4 L Albumin 2.3 L Globulin 3.1 Albumin/Globulin Ratio 0.7 L 08/18/16 11:50 WBC RBC Hgb Hct MCV MCH MCHC RDW Plt Count MPV Neut % (Auto) Lymph % (Auto) Rock % (Auto) Eos % (Auto) Baso % (Auto) Neut # Lymph # Rock # Eos # Baso # PT INR APTT Puncture Site pCO2 pO2 HCO3 ABG pH ABG Total CO2 ABG O2 Saturation ABG Base Excess ABG Hemoglobin ABG Carboxyhemoglobin POC ABG HHb (Measured) ABG Methemoglobin David Test A-a O2 Difference Respiratory Index Hgb O2 Saturation FiO2 Pressure Support CPAP Sodium Potassium Chloride Carbon Dioxide Anion Gap BUN Creatinine Est GFR ( Amer) Est GFR (Non-Af Amer) POC Glucose (mg/dL) 165 H Random Glucose Calcium Phosphorus Magnesium Total Bilirubin AST ALT Alkaline Phosphatase Total Protein Albumin Globulin Albumin/Globulin Ratio Fingerstick Blood Sugar Results: 165 Review of Systems - Review of Systems All systems: reviewed and no additional remarkable complaints except (Status post tracheostomy) Critical Care Progress Note - Nutrition Nutrition: Nutrition Category Date Time Status NPO Diet [DIET] Diets 08/17/16 Breakfast Active Assessment/Plan (1) Subdural hemorrhage following injury Current Visit: Yes Status: Acute Priority: High Comment: Status post evacuation of hematoma complicated by respiratory failure requiring tracheostomy , now on CPAP tolerating since yesterday trach collar Continue antibiotics for ESBL Advance feeding as tolerated Transfer to telemetry (2) ESBL (extended spectrum beta-lactamase) producing bacteria infection Current Visit: Yes Status: Acute (3) S/P percutaneous endoscopic gastrostomy (PEG) tube placement Current Visit: Yes Status: Acute
[2016-08-18] MEDS: Docusate-Senna 50 mg-8.6 mg Tab PO SCH (21:42)
[2016-08-19] MEDS: (Novolin R) Insulin Human Regular 100 units/ml vial SC SCH ×4 (00:13→18:04)
[2016-08-19] MEDS: Latanoprost 2.5 ml Opht Soln OD SCH ×2 (00:16→21:09)
[2016-08-19] MEDS: Sodium Chloride 0.9% 1,000 ML IV SCH (04:40)
[2016-08-19 06:44] LABS: BASO # 0.1 K/uL (0.0-0.2); BASO % 0.8 % (0.0-2.0); EOS # 0.6 K/uL (0.0-0.7); EOS % 4.4 % (0.0-4.0); HEMATOCRIT 28.1 % (35.0-51.0); LYMPH # 2.5 K/uL (1.0-4.3); LYMPH % 18.9 % (20.0-40.0); MEAN CELL VOLUME 79.9 fL (80.0-94.0); MEAN CORPUSCULAR HEMOGLOBIN 26.1 pg (27.0-31.0); MEAN CORPUSCULAR HGB CONC 32.7 g/dL (33.0-37.0); MEAN PLATELET VOLUME 8.5 fL (7.2-11.7); MONO # 1.1 K/uL (0.0-0.8); MONO % 8.3 % (0.0-10.0); NRBC % 0.1 % (0.0-2.0); WHITE BLOOD COUNT 13.2 K/uL (4.8-10.8)
[2016-08-19 06:46] LABS: CHLORIDE 104 mmol/L (98-107); SODIUM 139 mmol/L (132-148)
[2016-08-19 06:48] LABS: GFR AFRICAN-AMERICAN > 60
[2016-08-19 06:49] LABS: BLOOD UREA NITROGEN 9 mg/dL (9-20); CALCIUM 8.4 mg/dl (8.6-10.4); CARBON DIOXIDE 28 mmol/L (22-30); GLUCOSE,RANDOM 100 mg/dL (75-110)
[2016-08-19] MEDS: Fluticasone Nasal 50 mcg/Spray NAS SCH ×2 (10:19→17:37)
[2016-08-19] MEDS: [UNRECOGNIZED DRUG - OTHER] OS SCH ×2 (10:20→17:38)
--- NOTE | 2016-08-19 16:33 | CP.PCM.PN ---
Subjective - Date & Time of Evaluation Date of Evaluation: 08/19/16 Time of Evaluation: 16:29 - Subjective Subjective: now trach collar off vent non verbal peg tube moving all ext gestures and understands commands ie take deep breaths gestures no to pain Objective - Vital Signs/Intake and Output Vital Signs (last 24 hours): Temp Pulse Resp BP Pulse Ox 99.1 F 93 H 12 140/84 100 08/19/16 16:00 08/19/16 15:58 08/19/16 15:58 08/19/16 15:58 08/19/16 16:00 Intake and Output: 08/19/16 08/19/16 06:59 18:59 Intake Total 950 560 Output Total 300 Balance 650 560 - Medications Medications: Current Medications Acetaminophen (Tylenol 650mg/20.3ml Solution Ud) 650 mg NG Q6 PRN PRN Reason: Fever >100.4 F Last Admin: 08/16/16 21:12 Dose: 650 mg Amantadine HCl (Amantadine 100 Mg Cap) 100 mg PO BID [facility] Last Admin: 08/19/16 10:18 Dose: 100 mg Famotidine (Pepcid) 20 mg PO DAILY [facility] Last Admin: 08/19/16 10:18 Dose: 20 mg Fluticasone Propionate (Flonase) 1 spr BO BID [facility] Last Admin: 08/19/16 10:19 Dose: 1 spray Home Med (Patient's Own Drops) 1 drop OS BID [facility] Last Admin: 08/19/16 10:20 Dose: 1 drop Dexmedetomidine HCl 200 mcg/ (Sodium Chloride) 50 mls @ 4.11 mls/hr IV TITR PRN ; Protocol; 0.2 MCG/KG/HR PRN Reason: Sedation Last Titration: 08/17/16 11:00 Dose: 0 mcg/kg/hr, 0 mls/hr Imipenem/Cilastatin Sodium 500 (mg/ Sodium Chloride) 100 mls @ 100 mls/hr IVPB Q6H [facility] Insulin Human Regular (Novolin R) 0 unit SC Q6H [facility]ORDO PRN Reason: Protocol Last Admin: 08/19/16 12:18 Dose: 2 unit Latanoprost (Xalatan Opht) 0 ml OD HS [facility] Last Admin: 08/19/16 00:16 Dose: Not Given Lisinopril (Zestril) 10 mg PO DAILY [facility] Last Admin: 08/19/16 10:19 Dose: 10 mg Lorazepam (Ativan) 0.5 mg IVP Q6H PRN PRN Reason: Anxiety Last Admin: 08/18/16 21:27 Dose: 0.5 mg Methylphenidate HCl (Ritalin) 5 mg PO QAM [facility] Last Admin: 08/19/16 10:18 Dose: 5 mg Senna/Docusate Sodium (Senokot S 50 Mg-8.6 Mg) 1 tab PO HS [facility] Last Admin: 08/18/16 21:42 Dose: 1 tab Sennosides (Senokot Tab) 8.6 mg NG BID [facility] Last Admin: 08/19/16 10:18 Dose: 8.6 mg Timolol Maleate (Timoptic 0.5% Ophth Soln) 0 drop OD DAILY [facility] Last Admin: 08/19/16 10:19 Dose: 1 drop - Labs Labs: 08/19/16 06:34 08/19/16 06:34 PT 12.4 SECONDS (9.7-12.2) H 08/18/16 06:26 INR 1.1 08/18/16 06:26 APTT 29 SECONDS (21-34) 08/18/16 06:26 - Constitutional Appears: Non-toxic - Eye Exam Additional comments: left eye blindness - ENT Exam Additional comments: trach collar - Respiratory Exam Respiratory Exam: NORMAL BREATHING PATTERN. absent: Clear to Ausculation Bilateral Additional comments: coarse bs - GI/Abdominal Exam GI & Abdominal Exam: Soft, Normal Bowel Sounds. absent: Tenderness, Organomegaly Additional comments: obese - Neurological Exam Neurological Exam: Alert, Awake. absent: Oriented x3 Neuro motor strength exam: Left Upper Extremity: 5, Right Upper Extremity: 5, Left Lower Extremity: 5, Right Lower Extremity: 5 - Psychiatric Exam Psychiatric exam: Anxious Assessment and Plan - Assessment and Plan (Free Text) Assessment: (1) Cerebral hemorrhage Assessment & Plan: * Critical care: help appreciated * Neurosurgery: Dr. Bolden on board and has full management-- * Neurology: Dr Bonner on board * Head CT (07/30/16): CT Head without contrast: 1. The left orbit appears to be rotated 90 degrees to the right while the right orbit appears to be oriented normally. 2. 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 This results in severe mass effect on the underlying brain, including 1.4 cm of leftward midline shift and compression of the right lateral ventricle. Asymmetric enlargement of the right temporal horn suggestive of early entrapment. * Head CT (08/02/16): satisfactory postoperative status following craniotomy, evacuation of large extra-axial fluid collection on the right. No new intra- axial abnormalities. Improved edema, mass effect. No evidence of acute infarction. * Head CT (08/04/16) showed acute extra-axial hemorrhage with blood layering in the extra-axial space. Increase in sulcal effacement, mass effect and midline shift. There is no evidence of herniation. This follows removal of the surgical drain identified previously. * Head CT (08/06/16): status post surgical intervention, placement of drainage catheter into the extra-axial space at the site prior subdural hematoma edema, mass effect and midline shift have improved considerably. No new or significant findings identified. * Head CT (08/07/16): status post drainage of right subdural hematoma. Drainage catheter is nora in the extra axial space. Air and fluid in the usbdral space with an average thickeness of 9mm * Head CT (08/10/16): status post removal right sided subdural drainage catheter. Small residual mixed attenuation subdural collection with diminished amount of subdural air. Persistent mild mass effect with compressive effects on the right cerebral hemisphere. Minial right to left midline shift. Dysconjugate gaze and/ or strabismus. 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 status post right sided cataract surgery * Head CT (08/13/16): redemonstrated to small to medium sized hypodense of residual right sided subdural hematoma. Minmindal right to left midline shift. Previously noted small amount of subdural air on prior study has undegone further resoprtion. Persistent mild subjacent mass effect with compression of cerebral sulci and mild compression of right lateral ventricle. No evidence of obstructive hydrocephalus. * POD: s/p [place] hole and evacuation of subdural hemorrhage with Anderson and David drain * POD s/p right frontotemporal craniotomy; evacuation of acute subdural drain present * Removal of drain on 08/03/16 * S/p trach 08/15/16 * Keppra 500mg IVPB Q 12hours for seizure prophylaxis * Per neurosurgery, prefers patient off anticoagulation * continue Neurochecks * on NS 100cc/hr * Recommended by Neurology, for Amantidine and Ritalin, and NS 100cc/hr * now stable for floor per icu/neuro Status: Acute (2) Acute Respiratory Failure Assessment & Plan: * Multiple intubation/Reintubations during hospitalization * now trach - trial weaning off vent started on cpap * General Surgery (Dr. Levin) on board-->discussed with patient's nephew and daughter 08/15/16 * POD 3: diagnostic bronchoscopy, percutaneous tracheostomy * POD 2: peg tube Status: Acute (3) Hypertension Assessment & Plan: * NS 100c cc/hr * Lisinopril 10mg PO daily * Monitor vitals signs Status: Chronic (4) Diabetes Assessment & Plan: * [id number]: 5.9 * Controlled * Accuchecks Q6 hours * Regular insulin sliding scale subq Q 6hours * on feedings Status: Chronic (5) ESBL+ UTI; Leukocytosis Assessment & Plan: * Blood cultures X2: negative thus far urine culture (08/12/16) * Elevated white count in 31-->24-->24-->14-->11.9-->11.3 improved today to 9.5 on 08/17 * D/C Cefepime 1 gram Q 12hour, started on Primaxin IV and held Vancomycin 1g IV Q 12hours evening dose; pending trough level * Febrile, leukocytosis * UA: pyuria, hematuria, +esterase; urine culture: gram negative bebo pending speciation * Fever: on hypothermic blanket * Contact isolation (6) Prophylactic measure Assessment & Plan: * Neurosurgery prefers patient off anticoagulation per prior discussion with ICU * Pepcid 20mg PO daily * No benzos * Seizure prophylaxis * s/p trach * PICC line * Feeding tube placed today
[2016-08-19] MEDS: Docusate-Senna 50 mg-8.6 mg Tab PO SCH (21:10)
[2016-08-20] MEDS: (Novolin R) Insulin Human Regular 100 units/ml vial SC SCH ×4 (00:38→18:08)
--- NOTE | 2016-08-20 08:25 | CP.PCM.PN ---
Subjective - Date & Time of Evaluation Date of Evaluation: 08/20/16 Time of Evaluation: 08:21 - Subjective Subjective: CODE STAR: Patient found on floor of room, unwitnessed fall. Patient fell between bed rails. Patient vitals: T 98.6, BP 178/91, SpO2 100% trach collar. Patient placed back in bed, stat CT head ordered. 1:1 ordered. Objective - Vital Signs/Intake and Output Vital Signs (last 24 hours): Temp Pulse Resp BP Pulse Ox 99.7 F H 96 H 20 146/68 100 08/20/16 04:10 08/20/16 04:10 08/20/16 04:10 08/20/16 04:10 08/20/16 04:10 Intake and Output: 08/20/16 08/20/16 06:59 18:59 Intake Total 400 Balance 400 - Medications Medications: Current Medications Acetaminophen (Tylenol 650mg/20.3ml Solution Ud) 650 mg NG Q6 PRN PRN Reason: Fever >100.4 F Last Admin: 08/16/16 21:12 Dose: 650 mg Amantadine HCl (Amantadine 100 Mg Cap) 100 mg PO BID [facility] Last Admin: 08/19/16 17:37 Dose: 100 mg Famotidine (Pepcid) 20 mg PO DAILY [facility] Last Admin: 08/19/16 10:18 Dose: 20 mg Fluticasone Propionate (Flonase) 1 spr BO BID [facility] Last Admin: 08/19/16 17:37 Dose: 1 spray Home Med (Patient's Own Drops) 1 drop OS BID [facility] Last Admin: 08/19/16 17:38 Dose: 1 drop Imipenem/Cilastatin Sodium 500 (mg/ Sodium Chloride) 100 mls @ 100 mls/hr IVPB Q6H [facility] Last Admin: 08/20/16 05:20 Dose: 100 mls/hr Insulin Human Regular (Novolin R) 0 unit SC Q6H [facility] PRN Reason: Protocol Last Admin: 08/20/16 06:10 Dose: 2 unit Latanoprost (Xalatan Opht) 0 ml OD HS [facility] Last Admin: 08/19/16 21:09 Dose: 2.5 ml Lisinopril (Zestril) 10 mg PO DAILY [facility] Last Admin: 08/19/16 10:19 Dose: 10 mg Lorazepam (Ativan) 0.5 mg IVP Q6H PRN PRN Reason: Anxiety Last Admin: 08/19/16 21:09 Dose: 0.5 mg Methylphenidate HCl (Ritalin) 5 mg PO QAM [facility] Last Admin: 08/19/16 10:18 Dose: 5 mg Senna/Docusate Sodium (Senokot S 50 Mg-8.6 Mg) 1 tab PO HS [facility] Last Admin: 08/19/16 21:10 Dose: 1 tab Sennosides (Senokot Tab) 8.6 mg NG BID [facility] Last Admin: 08/19/16 17:37 Dose: 8.6 mg Timolol Maleate (Timoptic 0.5% [facility]) 0 drop OD DAILY [facility] Last Admin: 08/19/16 10:19 Dose: 1 drop - Labs Labs: 08/19/16 06:34 08/19/16 06:34 PT 12.4 SECONDS (9.7-12.2) H 08/18/16 06:26 INR 1.1 08/18/16 06:26 APTT 29 SECONDS (21-34) 08/18/16 06:26
[2016-08-20] MEDS: Fluticasone Nasal 50 mcg/Spray NAS SCH ×2 (09:55→17:35)
[2016-08-20] MEDS: [UNRECOGNIZED DRUG - OTHER] OS SCH ×2 (09:56→17:36)
--- NOTE | 2016-08-20 10:20 | CT ---
PROCEDURE: CT HEAD WITHOUT CONTRAST. HISTORY: Code kindra, recent ICH COMPARISON: 08/13/2016. TECHNIQUE: Axial computed tomography images were obtained through the head/brain without intravenous contrast. Radiation dose: Total exam DLP = 973.67 mGy-cm. This CT exam was performed using one or more of the following dose reduction techniques: Automated exposure control, adjustment of the mA and/or kV according to patient size, and/or use of iterative reconstruction technique. FINDINGS: HEMORRHAGE: Since the prior examination, there is interval mild decrease in the size of known right frontal and parietal convexity subacute on chronic subdural hematoma measuring 10.4 mm in maximum with. There is mild mass effect without midline shift or herniation. BRAIN: There are mild chronic microangiopathic changes. There is no territorial infarction. VENTRICLES: There is mild age-related global parenchymal volume loss and proportionate enlargement of the ventricles and cortical sulci. CALVARIUM: Status post right parietal craniotomy. PARANASAL SINUSES: Predominantly clear. MASTOID AIR CELLS: Predominantly clear. OTHER FINDINGS: None. 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 No midline shaft, herniation or hydrocephalus.
--- NOTE | 2016-08-20 13:04 | CP.PCM.PN ---
<RalfCortney - Last Filed: 08/20/16 12:52> Subjective - Date & Time of Evaluation Date of Evaluation: 08/20/16 Time of Evaluation: 12:52 - Subjective Subjective: Patient seen and examined at beside. Per nursing, patient was agitated overnight and attempting to pull out trach. Patient continuously motioning to his trach, indicating he wants to be suctioned. He also has PEG in place with abdomen binder covering site. Tube feeds being tolerated at rate of 50. Code star was called for patient as he fell between the bed rails. CT Head without contrast was performed which did not show increase in intracranial bleed. When asked using sports editor if he has pain, patient points to abdomen. There does not appear to be issue to abdomen noted on examination. Objective - Vital Signs/Intake and Output Vital Signs (last 24 hours): Temp Pulse Resp BP Pulse Ox 98.2 F 69 18 157/96 H 100 08/20/16 07:15 08/20/16 07:15 08/20/16 07:15 08/20/16 07:15 08/20/16 07:15 Intake and Output: 08/20/16 08/20/16 06:59 18:59 Intake Total 400 Balance 400 - Medications Medications: Current Medications Acetaminophen (Tylenol 650mg/20.3ml Solution Ud) 650 mg NG Q6 PRN PRN Reason: Fever >100.4 F Last Admin: 08/16/16 21:12 Dose: 650 mg Amantadine HCl (Amantadine 100 Mg Cap) 100 mg PO BID [facility] Last Admin: 08/20/16 10:01 Dose: 100 mg Famotidine (Pepcid) 20 mg PO DAILY [facility] Last Admin: 08/20/16 10:00 Dose: 20 mg Fluticasone Propionate (Flonase) 1 spr BO BID [facility] Last Admin: 08/20/16 09:55 Dose: 1 spray Home Med (Patient's Own Drops) 1 drop OS BID [facility] Last Admin: 08/20/16 09:56 Dose: 1 drop Imipenem/Cilastatin Sodium 500 (mg/ Sodium Chloride) 100 mls @ 100 mls/hr IVPB Q6H [facility] Last Admin: 08/20/16 05:20 Dose: 100 mls/hr Insulin Human Regular (Novolin R) 0 unit SC Q6H [facility] PRN Reason: Protocol Last Admin: 08/20/16 06:10 Dose: 2 unit Latanoprost (Xalatan Opht) 0 ml OD HS [facility] Last Admin: 08/19/16 21:09 Dose: 2.5 ml Lisinopril (Zestril) 10 mg PO DAILY [facility] Last Admin: 08/20/16 09:59 Dose: 10 mg Lorazepam (Ativan) 0.5 mg IVP Q6H PRN PRN Reason: Anxiety Last Admin: 08/19/16 21:09 Dose: 0.5 mg Methylphenidate HCl (Ritalin) 5 mg PO QAM [facility] Last Admin: 08/20/16 09:59 Dose: 5 mg Senna/Docusate Sodium (Senokot S 50 Mg-8.6 Mg) 1 tab PO HS [facility] Last Admin: 08/19/16 21:10 Dose: 1 tab Sennosides (Senokot Tab) 8.6 mg NG BID [facility] Last Admin: 08/20/16 10:02 Dose: 8.6 mg Timolol Maleate (Timoptic 0.5% Ophth Soln) 0 drop OD DAILY [facility] Last Admin: 08/20/16 09:55 Dose: 1 drop - Labs Labs: 08/19/16 06:34 08/19/16 06:34 PT 12.4 SECONDS (9.7-12.2) H 08/18/16 06:26 INR 1.1 08/18/16 06:26 APTT 29 SECONDS (21-34) 08/18/16 06:26 - Constitutional Appears: Non-toxic, No Acute Distress, Agitated - Head Exam Head Exam: ATRAUMATIC, NORMAL INSPECTION, NORMOCEPHALIC - Eye Exam Eye Exam: EOMI, Normal appearance, PERRL - ENT Exam ENT Exam: Mucous Membranes Moist - Neck Exam Additional comments: trach in place - Respiratory Exam Respiratory Exam: Clear to Ausculation Bilateral. absent: Rales, Rhonchi, Wheezes - Cardiovascular Exam Cardiovascular Exam: +S1, +S2. absent: Tachycardia - GI/Abdominal Exam GI & Abdominal Exam: Soft, Normal Bowel Sounds Additional comments: PEG in place - Extremities Exam Extremities Exam: Normal Inspection. 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 No midline shaft, herniation or hydrocephalus. * Head CT (07/30/16): CT Head without contrast: 1. The left orbit appears to be rotated 90 degrees to the right while the right orbit appears to be oriented normally. 2. 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 This results in severe mass effect on the underlying brain, including 1.4 cm of leftward midline shift and compression of the right lateral ventricle. Asymmetric enlargement of the right temporal horn suggestive of early entrapment. * Head CT (08/02/16): satisfactory postoperative status following craniotomy, evacuation of large extra-axial fluid collection on the right. No new intra- axial abnormalities. Improved edema, mass effect. No evidence of acute infarction. * Head CT (08/04/16) showed acute extra-axial hemorrhage with blood layering in the extra-axial space. Increase in sulcal effacement, mass effect and midline shift. There is no evidence of herniation. This follows removal of the surgical drain identified previously. * Head CT (08/06/16): status post surgical intervention, placement of drainage catheter into the extra-axial space at the site prior subdural hematoma edema, mass effect and midline shift have improved considerably. No new or significant findings identified. * Head CT (08/07/16): status post drainage of right subdural hematoma. Drainage catheter is nora in the extra axial space. Air and fluid in the usbdral space with an average thickeness of 9mm * Head CT (08/10/16): status post removal right sided subdural drainage catheter. Small residual mixed attenuation subdural collection with diminished amount of subdural air. Persistent mild mass effect with compressive effects on the right cerebral hemisphere. Minial right to left midline shift. Dysconjugate gaze and/ or strabismus. 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 status post right sided cataract surgery * Head CT (08/13/16): redemonstrated to small to medium sized hypodense of residual right sided subdural hematoma. Minmindal right to left midline shift. Previously noted small amount of subdural air on prior study has undegone further resoprtion. Persistent mild subjacent mass effect with compression of cerebral sulci and mild compression of right lateral ventricle. No evidence of obstructive hydrocephalus. * POD: s/p Orosi hole and evacuation of subdural hemorrhage with Dang and David drain * POD s/p right frontotemporal craniotomy; evacuation of acute subdural drain present * Removal of drain on 08/03/16 * S/p trach 08/15/16 * Keppra 500mg IVPB Q 12hours for seizure prophylaxis * Per neurosurgery, prefers patient off anticoagulation * continue Neurochecks * on NS 100cc/hr * Recommended by Neurology, for Amantidine and Ritalin, and NS 100cc/hr * now stable for floor per icu/neuro * Neurosurgery: Dr. Bolden on board and has full management-- * Neurology: Dr Bonner on board Status: Acute (2) Acute Respiratory Failure Assessment & Plan: * Multiple intubation/Reintubations during hospitalization * Trach in place * General Surgery (Dr. Levin) on board Status: Acute (3) Hypertension Assessment & Plan: * NS 100c cc/hr * Lisinopril 10mg PO daily * Monitor vitals signs Status: Chronic (4) Diabetes Assessment & Plan: * [id number]: 5.9 * Controlled * Accuchecks Q6 hours * Regular insulin sliding scale subq Q 6hours * on feedings Status: Chronic (5) ESBL+ UTI; Leukocytosis Assessment & Plan: * Blood cultures X2: negative thus far urine culture (08/12/16), blood culture negative (08/17) * Elevated white count in 31-->24-->24-->14-->11.9-->11.3-->13.2 * D/C Cefepime 1 gram Q 12hour, started on Primaxin IV and held Vancomycin 1g IV Q 12hours evening dose; pending trough level * Febrile, leukocytosis * UA: pyuria, hematuria, +esterase; urine culture: gram negative bebo pending speciation * Fever: on hypothermic blanket * Contact isolation (6) Prophylactic measure Assessment & Plan: * Neurosurgery prefers patient off anticoagulation per prior discussion with ICU * Pepcid 20mg PO daily * No benzos * Seizure prophylaxis * s/p trach * PICC line * Feeding tube placed today <Austin Moreau H - Last Filed: 08/20/16 15:50> Objective - Vital Signs/Intake and Output Vital Signs (last 24 hours): Temp Pulse Resp BP Pulse Ox 98.2 F 69 18 157/96 H 100 08/20/16 07:15 08/20/16 07:15 08/20/16 07:15 08/20/16 07:15 08/20/16 07:15 Intake and Output: 08/20/16 08/20/16 06:59 18:59 Intake Total 400 640 Balance 400 640 - Medications Medications: Current Medications Acetaminophen (Tylenol 650mg/20.3ml Solution Ud) 650 mg NG Q6 PRN PRN Reason: Fever >100.4 F Last Admin: 08/16/16 21:12 Dose: 650 mg Amantadine HCl (Amantadine 100 Mg Cap) 100 mg PO BID [facility] Last Admin: 08/20/16 10:01 Dose: 100 mg Famotidine (Pepcid) 20 mg PO DAILY [facility] Last Admin: 08/20/16 10:00 Dose: 20 mg Fluticasone Propionate (Flonase) 1 spr BO BID [facility] Last Admin: 08/20/16 09:55 Dose: 1 spray Home Med (Patient's Own Drops) 1 drop OS BID [facility] Last Admin: 08/20/16 09:56 Dose: 1 drop Imipenem/Cilastatin Sodium 500 (mg/ Sodium Chloride) 100 mls @ 100 mls/hr IVPB Q6H [facility] Last Admin: 08/20/16 05:20 Dose: 100 mls/hr Insulin Human Regular (Novolin R) 0 unit SC Q6H [facility] PRN Reason: Protocol Last Admin: 08/20/16 13:31 Dose: 2 unit Latanoprost (Xalatan Opht) 0 ml OD HS [facility] Last Admin: 08/19/16 21:09 Dose: 2.5 ml Lisinopril (Zestril) 10 mg PO DAILY [facility] Last Admin: 08/20/16 09:59 Dose: 10 mg Lorazepam (Ativan) 0.5 mg IVP Q6H PRN PRN Reason: Anxiety Last Admin: 08/19/16 21:09 Dose: 0.5 mg Methylphenidate HCl (Ritalin) 5 mg PO QAM [facility] Last Admin: 08/20/16 09:59 Dose: 5 mg Senna/Docusate Sodium (Senokot S 50 Mg-8.6 Mg) 1 tab PO HS [facility] Last Admin: 08/19/16 21:10 Dose: 1 tab Sennosides (Senokot Tab) 8.6 mg NG BID [facility] Last Admin: 08/20/16 10:02 Dose: 8.6 mg Timolol Maleate (Timoptic 0.5% Ophth Soln) 0 drop OD DAILY [facility] Last Admin: 08/20/16 09:55 Dose: 1 drop - Labs Labs: 08/19/16 06:34 08/19/16 06:34 PT 12.4 SECONDS (9.7-12.2) H 08/18/16 06:26 INR 1.1 08/18/16 06:26 APTT 29 SECONDS (21-34) 08/18/16 06:26 Attending/Attestation - Attestation I have personally seen and examined this patient.: Yes I have fully participated in the care of the patient.: Yes I have reviewed all pertinent clinical information, including history, physical exam and plan: Yes Notes (Text): 08/20/16 15:47 Medical Attending: Patient was seen and examined by me, Agree with the above note by the resident. Patient had a stat head CT done today after an earlier CODE Star was called when patient was found on the ground out of bed, It did not show worseing of bleeding but will need to monitor. Patient appeared to be confused today, there was a computer translation service brought into the room but it was of minimal help. Later a family member did arrive. He explained that patient does have a large family in home country and they are thinking about getting him back to his country in the future. At this time still on trach and PEG feeding. thank you Austin Moreau
[2016-08-20] MEDS ORDERED: Albuterol-Ipratrop 3 mg / 0.5 (3 ml) UD INH STA (19:26)
[2016-08-20] MEDS ORDERED: Valproate 500 MG in Sodium Chloride 0.9% 100 ML IVPB ONE (19:30)
--- NOTE | 2016-08-20 19:35 | CP.PCM.PN ---
Subjective - Date & Time of Evaluation Date of Evaluation: 08/20/16 Time of Evaluation: 18:10 - Subjective Subjective: Mr. Renee Lopez had an episode of agitation with attempt to remove his trach last night. Apparently, he also fell between the bed. Repeat CT head was stable. He continues to complain of abdominal pain and headache. I spoke with family members and discussed starting depakote to help with seizure prophylaxis , headache and mood stabilization. Objective - Vital Signs/Intake and Output Vital Signs (last 24 hours): Temp Pulse Resp BP Pulse Ox 97.3 F L 79 20 142/85 100 08/20/16 16:06 08/20/16 16:06 08/20/16 16:06 08/20/16 16:06 08/20/16 16:06 Intake and Output: 08/20/16 08/21/16 18:59 06:59 Intake Total 640 Balance 640 - Medications Medications: Current Medications Acetaminophen (Tylenol 650mg/20.3ml Solution Ud) 650 mg NG Q6 PRN PRN Reason: Fever >100.4 F Last Admin: 08/16/16 21:12 Dose: 650 mg Amantadine HCl (Amantadine 100 Mg Cap) 100 mg PO BID [facility] Last Admin: 08/20/16 17:35 Dose: 100 mg Divalproex Sodium (Depakote Er) 500 mg PO DAILY [facility] Famotidine (Pepcid) 20 mg PO DAILY [facility] Last Admin: 08/20/16 10:00 Dose: 20 mg Fluticasone Propionate (Flonase) 1 spr BO BID [facility] Last Admin: 08/20/16 17:35 Dose: 1 spray Home Med (Patient's Own Drops) 1 drop OS BID [facility] Last Admin: 08/20/16 17:36 Dose: 1 drop Imipenem/Cilastatin Sodium 500 (mg/ Sodium Chloride) 100 mls @ 100 mls/hr IVPB Q6H [facility] Last Admin: 08/20/16 17:36 Dose: 100 mls/hr Valproate Sodium 500 mg/ (Sodium Chloride) 105 mls @ 0 mls/hr IVPB ONCE ONE PRN Reason: Per Protocol Stop: 08/20/16 19:31 Insulin Human Regular (Novolin R) 0 unit SC Q6H [facility] PRN Reason: Protocol Last Admin: 08/20/16 18:08 Dose: Not Given Latanoprost (Xalatan Opht) 0 ml OD HS [facility] Last Admin: 08/19/16 21:09 Dose: 2.5 ml Lisinopril (Zestril) 10 mg PO DAILY [facility] Last Admin: 08/20/16 09:59 Dose: 10 mg Lorazepam (Ativan) 0.5 mg IVP Q6H PRN PRN Reason: Anxiety Last Admin: 08/19/16 21:09 Dose: 0.5 mg Senna/Docusate Sodium (Senokot S 50 Mg-8.6 Mg) 1 tab PO HS [facility] Last Admin: 08/19/16 21:10 Dose: 1 tab Sennosides (Senokot Tab) 8.6 mg NG BID [facility] Last Admin: 08/20/16 17:35 Dose: 8.6 mg Timolol Maleate (Timoptic 0.5% Ophth Soln) 0 drop OD DAILY [facility] Last Admin: 08/20/16 09:55 Dose: 1 drop - Labs Labs: 08/19/16 06:34 08/19/16 06:34 PT 12.4 SECONDS (9.7-12.2) H 08/18/16 06:26 INR 1.1 08/18/16 06:26 APTT 29 SECONDS (21-34) 08/18/16 06:26 - Neurological Exam Neurological Exam: Awake Neuro motor strength exam: Left Upper Extremity: 3, Right Upper Extremity: 3, Left Lower Extremity: 3, Right Lower Extremity: 3 Additional comments: Neurologically unchanged from previous examination. Assessment and Plan (1) Subdural hemorrhage following injury Assessment & Plan: Will start Depakote 500 mg daily for headache, seizure prophylaxis and mood stabilization. This may help with his agitation as well. Will stop methylphenidate for now. Status: Acute
[2016-08-20] MEDS: Latanoprost 2.5 ml Opht Soln OD SCH (22:24)
[2016-08-20] MEDS: Docusate-Senna 50 mg-8.6 mg Tab PO SCH (22:24)
[2016-08-21] MEDS: (Novolin R) Insulin Human Regular 100 units/ml vial SC SCH ×4 (00:12→18:57)
[2016-08-21] MEDS: Albuterol-Ipratrop 3 mg / 0.5 (3 ml) UD INH SCH ×4 (01:03→19:16)
[2016-08-21 07:06] LABS: CHLORIDE 100 mmol/L (98-107); POTASSIUM 3.8 mmol/L (3.6-5.2); SODIUM 137 mmol/L (132-148)
[2016-08-21 07:08] LABS: ALB/GLOB RATIO 0.9 (1.0-2.1); ALKALINE PHOSPHATASE 118 U/L (38-126); AST/SGOT 29 U/L (17-59); BILIRUBIN,TOTAL 0.6 mg/dL (0.2-1.3); CARBON DIOXIDE 28 mmol/L (22-30); GFR AFRICAN-AMERICAN > 60; TOTAL PROTEIN 6.2 g/dL (6.3-8.3)
[2016-08-21 07:09] LABS: ALT/SGPT 40 U/L (21-72); BLOOD UREA NITROGEN 11 mg/dL (9-20); CALCIUM 8.5 mg/dl (8.6-10.4); GLUCOSE,RANDOM 133 mg/dL (75-110); MAGNESIUM 2.1 mg/dL (1.6-2.3)
[2016-08-21 07:20] LABS: BASO # 0.1 K/uL (0.0-0.2); BASO % 0.6 % (0.0-2.0); EOS # 0.7 K/uL (0.0-0.7); HEMATOCRIT 28.1 % (35.0-51.0); LYMPH # 2.4 K/uL (1.0-4.3); MEAN CORPUSCULAR HEMOGLOBIN 26.3 pg (27.0-31.0); MEAN CORPUSCULAR HGB CONC 32.8 g/dL (33.0-37.0); MEAN PLATELET VOLUME 8.3 fL (7.2-11.7); MONO # 0.8 K/uL (0.0-0.8); MONO % 7.5 % (0.0-10.0); RED CELL DISTRIBUTION WIDTH 14.1 % (11.5-14.5)
--- NOTE | 2016-08-21 07:32 | CARD ---
APPROVED REPORT EKG Measurement Heart [id number] <Conclusion> Sinus tachycardia with 1st degree AV block Left axis deviation Low voltage QRS Inferior infarct, age undetermined Abnormal ECG
--- NOTE | 2016-08-21 09:46 | CP.PCM.PN ---
<Cortney Arambula - Last Filed: 08/21/16 12:13> Subjective - Date & Time of Evaluation Date of Evaluation: 08/21/16 Time of Evaluation: 09:41 - Subjective Subjective: Patient seen and examined at bedside. Patient is more drowsy today on exam. Cough is noted. Full review of system cannot be obtained as patient has trach. No acute events overnight per nursing and cp. Objective - Vital Signs/Intake and Output Vital Signs (last 24 hours): Temp Pulse Resp BP Pulse Ox 97.5 F L 73 20 140/75 96 08/21/16 08:52 08/21/16 08:52 08/21/16 08:52 08/21/16 08:52 08/21/16 08:52 Intake and Output: 08/21/16 08/21/16 06:59 18:59 Intake Total 500 Balance 500 - Medications Medications: Current Medications Acetaminophen (Tylenol 650mg/20.3ml Solution Ud) 650 mg NG Q6 PRN PRN Reason: Fever >100.4 F Last Admin: 08/16/16 21:12 Dose: 650 mg Albuterol/Ipratropium (Duoneb 3 Mg/0.5 Mg (3 Ml) Ud) 3 ml INH RQ6 [facility] Last Admin: 08/21/16 08:17 Dose: 3 ml Amantadine HCl (Amantadine 100 Mg Cap) 100 mg PO BID [facility] Last Admin: 08/20/16 17:35 Dose: 100 mg Divalproex Sodium (Depakote Er) 500 mg PO DAILY [facility] Famotidine (Pepcid) 20 mg PO DAILY [facility] Last Admin: 08/20/16 10:00 Dose: 20 mg Fluticasone Propionate (Flonase) 1 spr BO BID [facility] Last Admin: 08/20/16 17:35 Dose: 1 spray Home Med (Patient's Own Drops) 1 drop OS BID [facility] Last Admin: 08/20/16 17:36 Dose: 1 drop Imipenem/Cilastatin Sodium 500 (mg/ Sodium Chloride) 100 mls @ 100 mls/hr IVPB Q6H [facility] Last Admin: 08/21/16 05:33 Dose: 100 mls/hr Insulin Human Regular (Novolin R) 0 unit SC Q6H [facility] PRN Reason: Protocol Last Admin: 08/21/16 07:38 Dose: 2 unit Latanoprost (Xalatan Opht) 0 ml OD HS [facility] Last Admin: 08/20/16 22:24 Dose: 2.5 ml Lisinopril (Zestril) 10 mg PO DAILY [facility] Last Admin: 08/20/16 09:59 Dose: 10 mg Lorazepam (Ativan) 0.5 mg IVP Q6H PRN PRN Reason: Anxiety Last Admin: 08/20/16 22:23 Dose: 0.5 mg Senna/Docusate Sodium (Senokot S 50 Mg-8.6 Mg) 1 tab PO HS [facility] Last Admin: 08/20/16 22:24 Dose: 1 tab Sennosides (Senokot Tab) 8.6 mg NG BID [facility] Last Admin: 08/20/16 17:35 Dose: 8.6 mg Timolol Maleate (Timoptic 0.5% Ophth Soln) 0 drop OD DAILY [facility] Last Admin: 08/20/16 09:55 Dose: 1 drop - Labs Labs: 08/21/16 06:52 08/21/16 06:52 PT 12.4 SECONDS (9.7-12.2) H 08/18/16 06:26 INR 1.1 08/18/16 06:26 APTT 29 SECONDS (21-34) 08/18/16 06:26 - Constitutional Appears: Non-toxic, No Acute Distress - Head Exam Head Exam: NORMAL INSPECTION, NORMOCEPHALIC Additional comments: uriel present to right scalp, no surrounding erythema noted - Eye Exam Eye Exam: EOMI. absent: Normal appearance Additional comments: esotropia of left eye - ENT Exam ENT Exam: Mucous Membranes Dry - Neck Exam Neck Exam: Full ROM - Respiratory Exam Respiratory Exam: Rales, Rhonchi. absent: Clear to Ausculation Bilateral - Cardiovascular Exam Cardiovascular Exam: +S1, +S2. absent: Tachycardia - GI/Abdominal Exam GI & Abdominal Exam: Soft, Normal Bowel Sounds. absent: Firm, Guarding, Tenderness Additional comments: PEG in place - Extremities Exam Extremities Exam: Normal Inspection. absent: Pedal Edema, Tenderness - Neurological Exam Neurological Exam: Alert, Awake - Skin Skin Exam: Intact, Normal Color Assessment and Plan - Assessment and Plan (Free Text) Assessment: Cerebral hemorrhage Assessment & Plan: * Depakote started. Ritalin discontinued. * Patient was agitated yesterday. Neurology, Dr. Bonner, discussed with family starting Depakote 500 mg po qd for seizure ppx, headache, and mood stabilization. 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 No midline shaft, herniation or hydrocephalus. * Head CT (07/30/16): CT Head without contrast: 1. The left orbit appears to be rotated 90 degrees to the right while the right orbit appears to be oriented normally. 2. 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 This results in severe mass effect on the underlying brain, including 1.4 cm of leftward midline shift and compression of the right lateral ventricle. Asymmetric enlargement of the right temporal horn suggestive of early entrapment. * Head CT (08/02/16): satisfactory postoperative status following craniotomy, evacuation of large extra-axial fluid collection on the right. No new intra- axial abnormalities. Improved edema, mass effect. No evidence of acute infarction. * Head CT (08/04/16) showed acute extra-axial hemorrhage with blood layering in the extra-axial space. Increase in sulcal effacement, mass effect and midline shift. There is no evidence of herniation. This follows removal of the surgical drain identified previously. * Head CT (08/06/16): status post surgical intervention, placement of drainage catheter into the extra-axial space at the site prior subdural hematoma edema, mass effect and midline shift have improved considerably. No new or significant findings identified. * Head CT (08/07/16): status post drainage of right subdural hematoma. Drainage catheter is nora in the extra axial space. Air and fluid in the usbdral space with an average thickeness of 9mm * Head CT (08/10/16): status post removal right sided subdural drainage catheter. Small residual mixed attenuation subdural collection with diminished amount of subdural air. Persistent mild mass effect with compressive effects on the right cerebral hemisphere. Minial right to left midline shift. Dysconjugate gaze and/ or strabismus. 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 status post right sided cataract surgery * Head CT (08/13/16): redemonstrated to small to medium sized hypodense of residual right sided subdural hematoma. Minmindal right to left midline shift. Previously noted small amount of subdural air on prior study has undegone further resoprtion. Persistent mild subjacent mass effect with compression of cerebral sulci and mild compression of right lateral ventricle. No evidence of obstructive hydrocephalus. * POD: s/p Zoe hole and evacuation of subdural hemorrhage with Dang and David drain * POD s/p right frontotemporal craniotomy; evacuation of acute subdural drain present * Removal of drain on 08/03/16 * S/p trach 08/15/16 * Per neurosurgery, prefers patient off anticoagulation * continue Neurochecks * on NS 100cc/hr * Recommended by Neurology, for Amantidine and Ritalin, and NS 100cc/hr * now stable for floor per icu/neuro * Neurosurgery: Dr. Bolden on board and has full management-- * Neurology: Dr Bonner on board Status: Acute Acute Respiratory Failure Assessment & Plan: * Multiple intubation/Reintubations during hospitalization * Duonebs RQ6 [facility] started * Continue Flonase 1 spr Bo BID * Trach in place * General Surgery (Dr. Levin) on board Status: Acute Hypertension Assessment & Plan: * NS 100c cc/hr * Lisinopril 10mg PO daily * Monitor vitals signs Status: Chronic Diabetes Assessment & Plan: * [id number]: 5.9 * Controlled * Accuchecks Q6 hours * Regular insulin sliding scale subq Q 6hours * on feedings Status: Chronic Cough Assessment & Plan: * Possible pneumonia * f/u CXR ESBL+ UTI; Leukocytosis Assessment & Plan: * Blood cultures X2: negative thus far urine culture (08/12/16), blood culture negative (08/17) * Elevated white count in 31-->24-->24-->14-->11.9-->11.3-->13.2-->11.0 * D/C Cefepime 1 gram Q 12hour, started on Primaxin IV and held Vancomycin 1g IV Q 12hours evening dose; pending trough level * Febrile, leukocytosis * UA: pyuria, hematuria, +esterase; urine culture: gram negative bebo pending speciation * Fever: on hypothermic blanket * Contact isolation Prophylactic measure Assessment & Plan: * Neurosurgery prefers patient off anticoagulation per prior discussion with ICU * Pepcid 20mg PO daily * No benzos * Seizure prophylaxis * s/p trach * PICC line * Feeding tube placed today <Austin Moreau H - Last Filed: 08/21/16 16:42> Objective - Vital Signs/Intake and Output Vital Signs (last 24 hours): Temp Pulse Resp BP Pulse Ox 98.3 F 82 20 155/83 H 100 08/21/16 15:46 08/21/16 15:46 08/21/16 15:46 08/21/16 15:46 08/21/16 15:46 Intake and Output: 08/21/16 08/21/16 06:59 18:59 Intake Total 500 275 Balance 500 275 - Medications Medications: Current Medications Acetaminophen (Tylenol 650mg/20.3ml Solution Ud) 650 mg NG Q6 PRN PRN Reason: Fever >100.4 F Last Admin: 08/16/16 21:12 Dose: 650 mg Albuterol/Ipratropium (Duoneb 3 Mg/0.5 Mg (3 Ml) Ud) 3 ml INH RQ6 [facility] Last Admin: 08/21/16 13:18 Dose: Not Given Amantadine HCl (Amantadine 100 Mg Cap) 100 mg PO BID [facility] Last Admin: 08/21/16 10:02 Dose: 100 mg Divalproex Sodium (Depakote Er) 500 mg PO DAILY [facility] Last Admin: 08/21/16 10:02 Dose: 500 mg Famotidine (Pepcid) 20 mg PO DAILY [facility] Last Admin: 08/21/16 10:02 Dose: 20 mg Fluticasone Propionate (Flonase) 1 spr BO BID [facility] Last Admin: 08/21/16 10:01 Dose: 1 spray Home Med (Patient's Own Drops) 1 drop OS BID [facility] Last Admin: 08/21/16 10:02 Dose: 1 drop Imipenem/Cilastatin Sodium 500 (mg/ Sodium Chloride) 100 mls @ 100 mls/hr IVPB Q6H [facility] Last Admin: 08/21/16 11:18 Dose: 100 mls/hr Insulin Human Regular (Novolin R) 0 unit SC Q6H [facility] PRN Reason: Protocol Last Admin: 08/21/16 12:08 Dose: Not Given Latanoprost (Xalatan Opht) 0 ml OD HS [facility] Last Admin: 08/20/16 22:24 Dose: 2.5 ml Lisinopril (Zestril) 10 mg PO DAILY [facility] Last Admin: 08/21/16 10:02 Dose: 10 mg Lorazepam (Ativan) 0.5 mg IVP Q6H PRN PRN Reason: Anxiety Last Admin: 08/20/16 22:23 Dose: 0.5 mg Senna/Docusate Sodium (Senokot S 50 Mg-8.6 Mg) 1 tab PO HS [facility] Last Admin: 08/20/16 22:24 Dose: 1 tab Sennosides (Senokot Tab) 8.6 mg NG BID [facility] Last Admin: 08/21/16 10:02 Dose: 8.6 mg Timolol Maleate (Timoptic 0.5% Ophth Soln) 0 drop OD DAILY [facility] Last Admin: 08/21/16 10:01 Dose: 1 drop - Labs Labs: 08/21/16 06:52 08/21/16 06:52 PT 12.4 SECONDS (9.7-12.2) H 08/18/16 06:26 INR 1.1 08/18/16 06:26 APTT 29 SECONDS (21-34) 08/18/16 06:26 Attending/Attestation - Attestation I have personally seen and examined this patient.: Yes I have fully participated in the care of the patient.: Yes I have reviewed all pertinent clinical information, including history, physical exam and plan: Yes Notes (Text): Medical attending: Patient was seen and examined by me. Agree with the above note by the resident. When we saw and examined the patient today he seemed a lot more sedated and somnolent than before. The patient was started on depakote yesterday.
[2016-08-21] MEDS: Fluticasone Nasal 50 mcg/Spray NAS SCH ×2 (10:01→18:13)
[2016-08-21] MEDS: Divalproex 500 mg ER Tab PO SCH (10:02)
[2016-08-21] MEDS: [UNRECOGNIZED DRUG - OTHER] OS SCH ×2 (10:02→18:23)
--- NOTE | 2016-08-21 16:31 | RAD ---
HISTORY: leukocytosis, rhonchi COMPARISON: No prior. FINDINGS: LUNGS: No active pulmonary disease. Lung volumes are shallow. The central pulmonary vascular markings and or bronchovascular markings appear top normal -these findings are nonspecific. A mild bronchitis is 1 consideration PLEURA: No significant pleural effusion identified, no pneumothorax apparent. Apparent right hemidiaphragmatic pleural calcification or right hepatic dome calcification -appearance unchanged CARDIOVASCULAR: Normal. OSSEOUS STRUCTURES: No significant abnormalities. VISUALIZED UPPER ABDOMEN: Normal. OTHER FINDINGS: Tracheostomy tube in place No definitive NG tube is appreciated. Right-sided PICC terminates at the expected location of the cavoatrial junction. IMPRESSION: No dense consolidation. A mild central bronchitis under central mid mild pulmonary vascular congestion are differential considerations. Other findings as above. Clinical follow-up recommended
[2016-08-21] MEDS: Docusate-Senna 50 mg-8.6 mg Tab PO SCH (22:21)
[2016-08-21] MEDS: Latanoprost 2.5 ml Opht Soln OD SCH (22:28)
[2016-08-22] MEDS: Albuterol-Ipratrop 3 mg / 0.5 (3 ml) UD INH SCH ×4 (01:09→19:57)
[2016-08-22] MEDS: (Novolin R) Insulin Human Regular 100 units/ml vial SC SCH ×3 (04:39→11:41)
--- NOTE | 2016-08-22 07:50 | CP.PCM.PN ---
<RalfCortney - Last Filed: 08/22/16 13:15> Subjective - Date & Time of Evaluation Date of Evaluation: 08/22/16 Time of Evaluation: 07:48 - Subjective Subjective: Patient seen and examined at bedside. Patient has trach and PEG tube in place. No acute events per nursing. Daughter is present at bedside. She states he continues to try to remove the trach. She also reports excessive mucous production within trach. Patient denies pain. He is able to life his upper and lower extremities. Daughter notes patient was able to walk with physical therapist today. Discussed with daughter that we would need to wait longer before attempting to cap the trach. Family wants to get patient back to [place]. Objective - Vital Signs/Intake and Output Vital Signs (last 24 hours): Temp Pulse Resp BP Pulse Ox 98.2 F 85 20 160/92 H 100 08/21/16 23:25 08/21/16 23:25 08/21/16 23:25 08/21/16 23:25 08/21/16 23:25 - Medications Medications: Current Medications Acetaminophen (Tylenol 650mg/20.3ml Solution Ud) 650 mg NG Q6 PRN PRN Reason: Fever >100.4 F Last Admin: 08/16/16 21:12 Dose: 650 mg Albuterol/Ipratropium (Duoneb 3 Mg/0.5 Mg (3 Ml) Ud) 3 ml INH RQ6 [facility] Last Admin: 08/22/16 01:09 Dose: 3 ml Amantadine HCl (Amantadine 100 Mg Cap) 100 mg PO BID [facility] Last Admin: 08/21/16 18:20 Dose: 100 mg Divalproex Sodium (Depakote Er) 500 mg PO DAILY [facility] Last Admin: 08/21/16 10:02 Dose: 500 mg Famotidine (Pepcid) 20 mg PO DAILY [facility] Last Admin: 08/21/16 10:02 Dose: 20 mg Fluticasone Propionate (Flonase) 1 spr BO BID [facility] Last Admin: 08/21/16 18:13 Dose: 1 spray Home Med (Patient's Own Drops) 1 drop OS BID [facility] Last Admin: 08/21/16 18:23 Dose: 1 drop Imipenem/Cilastatin Sodium 500 (mg/ Sodium Chloride) 100 mls @ 100 mls/hr IVPB Q6H [facility] Last Admin: 08/22/16 06:28 Dose: 100 mls/hr Insulin Human Regular (Novolin R) 0 unit SC Q6H [facility] PRN Reason: Protocol Last Admin: 08/22/16 07:05 Dose: 2 unit Latanoprost (Xalatan Opht) 0 ml OD HS [facility] Last Admin: 08/21/16 22:28 Dose: 2.5 ml Lisinopril (Zestril) 10 mg PO DAILY [facility] Last Admin: 08/21/16 10:02 Dose: 10 mg Lorazepam (Ativan) 0.5 mg IVP Q6H PRN PRN Reason: Anxiety Last Admin: 08/22/16 04:14 Dose: 0.5 mg Senna/Docusate Sodium (Senokot S 50 Mg-8.6 Mg) 1 tab PO HS [facility] Last Admin: 08/21/16 22:21 Dose: 1 tab Sennosides (Senokot Tab) 8.6 mg NG BID [facility] Last Admin: 08/21/16 18:19 Dose: 8.6 mg Timolol Maleate (Timoptic 0.5% Ophth Soln) 0 drop OD DAILY [facility] Last Admin: 08/21/16 10:01 Dose: 1 drop - Labs Labs: 08/21/16 06:52 08/21/16 06:52 PT 12.4 SECONDS (9.7-12.2) H 08/18/16 06:26 INR 1.1 08/18/16 06:26 APTT 29 SECONDS (21-34) 08/18/16 06:26 - Constitutional Appears: Non-toxic, No Acute Distress - Head Exam Head Exam: NORMAL INSPECTION, NORMOCEPHALIC - Eye Exam Eye Exam: absent: EOMI Additional comments: esotropia to left eye - ENT Exam ENT Exam: Mucous Membranes Moist - Neck Exam Neck Exam: Full ROM, Normal Inspection Additional comments: trach in place - Respiratory Exam Respiratory Exam: absent: Clear to Ausculation Bilateral Additional comments: congested on auscultation - Cardiovascular Exam Cardiovascular Exam: +S1, +S2. absent: Bradycardia, Tachycardia - GI/Abdominal Exam GI & Abdominal Exam: Soft, Normal Bowel Sounds. absent: Distended, Firm Additional comments: PEG in place - Extremities Exam Extremities Exam: Normal Inspection. absent: Pedal Edema, Tenderness - Neurological Exam Neurological Exam: Alert, Oriented x3 Neuro motor strength exam: Left Upper Extremity: 4, Right Upper Extremity: 4, Left Lower Extremity: 4, Right Lower Extremity: 4 - Psychiatric Exam Psychiatric exam: Normal Affect, Normal Mood - Skin Skin Exam: Intact, Normal Color Assessment and Plan - Assessment and Plan (Free Text) Assessment: Cerebral hemorrhage Assessment & Plan: * Depakote started. Ritalin discontinued. * Patient was agitated yesterday. Neurology, Dr. Bonner, discussed with family starting Depakote 500 mg po qd for seizure ppx, headache, and mood stabilization. 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 No midline shaft, herniation or hydrocephalus. * Head CT (07/30/16): CT Head without contrast: 1. The left orbit appears to be rotated 90 degrees to the right while the right orbit appears to be oriented normally. 2. 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 This results in severe mass effect on the underlying brain, including 1.4 cm of leftward midline shift and compression of the right lateral ventricle. Asymmetric enlargement of the right temporal horn suggestive of early entrapment. * Head CT (08/02/16): satisfactory postoperative status following craniotomy, evacuation of large extra-axial fluid collection on the right. No new intra- axial abnormalities. Improved edema, mass effect. No evidence of acute infarction. * Head CT (08/04/16) showed acute extra-axial hemorrhage with blood layering in the extra-axial space. Increase in sulcal effacement, mass effect and midline shift. There is no evidence of herniation. This follows removal of the surgical drain identified previously. * Head CT (08/06/16): status post surgical intervention, placement of drainage catheter into the extra-axial space at the site prior subdural hematoma edema, mass effect and midline shift have improved considerably. No new or significant findings identified. * Head CT (08/07/16): status post drainage of right subdural hematoma. Drainage catheter is nora in the extra axial space. Air and fluid in the usbdral space with an average thickeness of 9mm * Head CT (08/10/16): status post removal right sided subdural drainage catheter. Small residual mixed attenuation subdural collection with diminished amount of subdural air. Persistent mild mass effect with compressive effects on the right cerebral hemisphere. Minial right to left midline shift. Dysconjugate gaze and/ or strabismus. 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 status post right sided cataract surgery * Head CT (08/13/16): redemonstrated to small to medium sized hypodense of residual right sided subdural hematoma. Minmindal right to left midline shift. Previously noted small amount of subdural air on prior study has undegone further resoprtion. Persistent mild subjacent mass effect with compression of cerebral sulci and mild compression of right lateral ventricle. No evidence of obstructive hydrocephalus. * POD: s/p [place] hole and evacuation of subdural hemorrhage with [place] and David drain * POD s/p right frontotemporal craniotomy; evacuation of acute subdural drain present * Removal of drain on 08/03/16 * S/p trach 08/15/16 * Per neurosurgery, prefers patient off anticoagulation * continue Neurochecks * on NS 100cc/hr * Recommended by Neurology, for Amantidine and Ritalin, and NS 100cc/hr * now stable for floor per icu/neuro * Neurosurgery: Dr. Bolden on board and has full management-- * Neurology: Dr Bonner on board Status: Acute Acute Respiratory Failure Assessment & Plan: * Multiple intubation/Reintubations during hospitalization * Continue Duonebs RQ6 [facility] * Start Acetylcysteine 4 ml INH Q6h [facility] for thick secretions * Continue suctioning * Continue Flonase 1 spr Bo BID * Trach in place * General Surgery (Dr. Levin) on board Status: Acute Hypertension Assessment & Plan: * NS 100c cc/hr * Lisinopril 10mg PO daily * Monitor vitals signs Status: Chronic Diabetes Assessment & Plan: * [id number]: 5.9 * Controlled * Accuchecks Q6 hours * Regular insulin sliding scale subq Q 6hours * on feedings Status: Chronic Cough Assessment & Plan: * Possible pneumonia * Sent for sputum cx * CXR: No dense consolidation. A mild central bronchitis under central mid mild pulmonary vascular congestion are differential considerations. ESBL+ UTI; Leukocytosis Assessment & Plan: * Blood cultures X2: negative thus far urine culture (08/12/16), blood culture negative (08/17) * Elevated white count in 31-->24-->24-->14-->11.9-->11.3-->13.2-->11.0 * D/C Cefepime 1 gram Q 12hour, started on Primaxin IV and held Vancomycin 1g IV Q 12hours evening dose; pending trough level * Febrile, leukocytosis * UA: pyuria, hematuria, +esterase; urine culture: gram negative bebo pending speciation * Fever: on hypothermic blanket * Contact isolation Prophylactic measure Assessment & Plan: * Neurosurgery prefers patient off anticoagulation per prior discussion with ICU * Pepcid 20mg PO daily * No benzos * Seizure prophylaxis * s/p trach * PICC line * Feeding tube placed today <Austin Moreau H - Last Filed: 08/22/16 14:36> Objective - Vital Signs/Intake and Output Vital Signs (last 24 hours): Temp Pulse Resp BP Pulse Ox 97 F L 83 20 128/70 100 08/22/16 07:10 08/22/16 07:10 08/22/16 07:10 08/22/16 07:10 08/22/16 07:10 - Medications Medications: Current Medications Acetaminophen (Tylenol 650mg/20.3ml Solution Ud) 650 mg NG Q6 PRN PRN Reason: Fever >100.4 F Last Admin: 08/16/16 21:12 Dose: 650 mg Acetylcysteine (Acetylcysteine 20%) 4 ml INH Q6H [facility] Albuterol/Ipratropium (Duoneb 3 Mg/0.5 Mg (3 Ml) Ud) 3 ml INH RQ6 [facility] Last Admin: 08/22/16 13:32 Dose: 3 ml Amantadine HCl (Amantadine 100 Mg Cap) 100 mg PO BID [facility] Last Admin: 08/22/16 10:48 Dose: 100 mg Divalproex Sodium (Depakote Er) 500 mg PO DAILY [facility] Last Admin: 08/22/16 10:55 Dose: 500 mg Famotidine (Pepcid) 20 mg PO DAILY [facility] Last Admin: 08/22/16 10:48 Dose: 20 mg Fluticasone Propionate (Flonase) 1 spr BO BID [facility] Last Admin: 08/22/16 10:59 Dose: 1 spray Home Med (Patient's Own Drops) 1 drop OS BID [facility] Last Admin: 08/22/16 11:00 Dose: 1 drop Imipenem/Cilastatin Sodium 500 (mg/ Sodium Chloride) 100 mls @ 100 mls/hr IVPB Q6H [facility] Last Admin: 08/22/16 11:42 Dose: 100 mls/hr Latanoprost (Xalatan Opht) 0 ml OD HS [facility] Last Admin: 08/21/16 22:28 Dose: 2.5 ml Lisinopril (Zestril) 10 mg PO DAILY [facility] Last Admin: 08/22/16 10:47 Dose: 10 mg Lorazepam (Ativan) 0.5 mg IVP Q6H PRN PRN Reason: Anxiety Last Admin: 08/22/16 04:14 Dose: 0.5 mg Senna/Docusate Sodium (Senokot S 50 Mg-8.6 Mg) 1 tab PO HS [facility] Last Admin: 08/21/16 22:21 Dose: 1 tab Sennosides (Senokot Tab) 8.6 mg NG BID [facility] Last Admin: 08/22/16 10:47 Dose: 8.6 mg Timolol Maleate (Timoptic 0.5% Ophth Soln) 0 drop OD DAILY [facility] Last Admin: 08/22/16 11:00 Dose: 1 drop - Labs Labs: 08/21/16 06:52 08/21/16 06:52 PT 12.4 SECONDS (9.7-12.2) H 08/18/16 06:26 INR 1.1 08/18/16 06:26 APTT 29 SECONDS (21-34) 08/18/16 06:26 Attending/Attestation - Attestation I have personally seen and examined this patient.: Yes I have fully participated in the care of the patient.: Yes I have reviewed all pertinent clinical information, including history, physical exam and plan: Yes Notes (Text): 08/22/16 14:34 Medical attending: Patient was seen and examined by me, agrees the above note by medical staff credentialing coordinator. When we repair his as well as daughter was present in the help translate the patient was able to follow many commands even though he was not able to speak. He is able to shake both my hands bilaterally. The muscle strength was 5 out of 5 he is able to elevate both his arms as well. He is also able to elevate both his legs for greater than 5 seconds. According to family members he earlier had physical therapy and was able to stand up. The family explained to me that their goals are for him to become strong enough to eventually go back to his home country however explained to them that this might take a while. Currently he still has a trach and PEG at this time Thank you very much, Austin Moreau
[2016-08-22] MEDS: Divalproex 500 mg ER Tab PO SCH (10:55)
[2016-08-22] MEDS: Fluticasone Nasal 50 mcg/Spray NAS SCH ×2 (10:59→18:18)
[2016-08-22] MEDS: [UNRECOGNIZED DRUG - OTHER] OS SCH ×2 (11:00→18:18)
[2016-08-22] MEDS: Acetylcysteine 20% Inhal Soln (4ml) INH SCH (19:57)
[2016-08-22] MEDS: Latanoprost 2.5 ml Opht Soln OD SCH (22:45)
[2016-08-22] MEDS: Docusate-Senna 50 mg-8.6 mg Tab PO SCH (22:50)
[2016-08-23] MEDS: Albuterol-Ipratrop 3 mg / 0.5 (3 ml) UD INH SCH ×4 (01:07→21:18)
[2016-08-23] MEDS: Acetylcysteine 20% Inhal Soln (4ml) INH SCH ×4 (01:07→21:18)
--- NOTE | 2016-08-23 07:22 | CP.PCM.PN ---
<Cortney Arambula - Last Filed: 08/23/16 15:37> Subjective - Date & Time of Evaluation Date of Evaluation: 08/23/16 Time of Evaluation: 07:21 - Subjective Subjective: Patient seen and examined at bedside. Patient's family are present at bedside. Family states patient is agitated by the trach. Family wants to know if patient could get speak-easy valve and have repeat swallow evaluation. It was explained to family we will evaluate patient next week to possibly have trach changed to fenestrated. It was re-iterated that an exact date is uncertain. Patient does not appear agitated on exam. He continues to ask if he can drink. Full ROS cannot be obtained. Objective - Vital Signs/Intake and Output Vital Signs (last 24 hours): Temp Pulse Resp BP Pulse Ox 98.8 F 83 20 136/87 97 08/23/16 02:03 08/23/16 02:03 08/23/16 02:03 08/23/16 02:03 08/23/16 02:03 Intake and Output: 08/23/16 08/23/16 06:59 18:59 Intake Total 700 Balance 700 - Medications Medications: Current Medications Acetaminophen (Tylenol 650mg/20.3ml Solution Ud) 650 mg NG Q6 PRN PRN Reason: Fever >100.4 F Last Admin: 08/16/16 21:12 Dose: 650 mg Acetylcysteine (Acetylcysteine 20%) 4 ml INH Q6H [facility] Last Admin: 08/23/16 01:07 Dose: 4 ml Albuterol/Ipratropium (Duoneb 3 Mg/0.5 Mg (3 Ml) Ud) 3 ml INH RQ6 [facility] Last Admin: 08/23/16 01:07 Dose: 3 ml Amantadine HCl (Amantadine 100 Mg Cap) 100 mg PO BID [facility] Last Admin: 08/22/16 18:17 Dose: 100 mg Divalproex Sodium (Depakote Er) 500 mg PO DAILY [facility] Last Admin: 08/22/16 10:55 Dose: 500 mg Famotidine (Pepcid) 20 mg PO DAILY [facility] Last Admin: 08/22/16 10:48 Dose: 20 mg Fluticasone Propionate (Flonase) 1 spr BO BID [facility] Last Admin: 08/22/16 18:18 Dose: 1 spray Home Med (Patient's Own Drops) 1 drop OS BID [facility] Stop: 09/19/16 18:01 Imipenem/Cilastatin Sodium 500 (mg/ Sodium Chloride) 100 mls @ 100 mls/hr IVPB Q6H [facility] Last Admin: 08/23/16 06:48 Dose: 100 mls/hr Latanoprost (Xalatan Opht) 0 ml OD HS [facility] Stop: 09/05/16 18:00 Last Admin: 08/22/16 22:45 Dose: 2.5 ml Lisinopril (Zestril) 10 mg PO DAILY [facility] Last Admin: 08/22/16 10:47 Dose: 10 mg Lorazepam (Ativan) 0.5 mg IVP Q6H PRN PRN Reason: Anxiety Last Admin: 08/23/16 01:25 Dose: 0.5 mg Senna/Docusate Sodium (Senokot S 50 Mg-8.6 Mg) 1 tab PO HS [facility] Last Admin: 08/22/16 22:50 Dose: 1 tab Timolol Maleate (Timoptic 0.5% Ophth Soln) 0 drop OD DAILY [facility] Last Admin: 08/22/16 11:00 Dose: 1 drop - Labs Labs: 08/21/16 06:52 08/21/16 06:52 PT 12.4 SECONDS (9.7-12.2) H 08/18/16 06:26 INR 1.1 08/18/16 06:26 APTT 29 SECONDS (21-34) 08/18/16 06:26 - Constitutional Appears: Non-toxic, No Acute Distress - Head Exam Head Exam: NORMAL INSPECTION, NORMOCEPHALIC - Eye Exam Eye Exam: EOMI Additional comments: esotropia - ENT Exam ENT Exam: Mucous Membranes Moist - Neck Exam Neck Exam: Full ROM - Respiratory Exam Respiratory Exam: Rhonchi, NORMAL BREATHING PATTERN. absent: Clear to Ausculation Bilateral, Rales, Wheezes - Cardiovascular Exam Cardiovascular Exam: +S1, +S2. absent: Tachycardia, Murmur - GI/Abdominal Exam GI & Abdominal Exam: Soft, Normal Bowel Sounds. absent: Tenderness Additional comments: PEG in place - Extremities Exam Extremities Exam: Full ROM, Normal Inspection. absent: Pedal Edema, Tenderness - Neurological Exam Neurological Exam: Alert, Oriented x3 Neuro motor strength exam: Left Upper Extremity: 4, Right Upper Extremity: 4, Left Lower Extremity: 4, Right Lower Extremity: 4 - Psychiatric Exam Psychiatric exam: Normal Affect, Normal Mood - Skin Skin Exam: Intact, Normal Color Assessment and Plan - Assessment and Plan (Free Text) Assessment: Cerebral hemorrhage Assessment & Plan: * Continue Depakote * Ritalin discontinued. * Patient was agitated yesterday. Neurology, Dr. Bonner, discussed with family starting Depakote 500 mg po qd for seizure ppx, headache, and mood stabilization. 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 No midline shaft, herniation or hydrocephalus. * Head CT (07/30/16): CT Head without contrast: 1. The left orbit appears to be rotated 90 degrees to the right while the right orbit appears to be oriented normally. 2. 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 This results in severe mass effect on the underlying brain, including 1.4 cm of leftward midline shift and compression of the right lateral ventricle. Asymmetric enlargement of the right temporal horn suggestive of early entrapment. * Head CT (08/02/16): satisfactory postoperative status following craniotomy, evacuation of large extra-axial fluid collection on the right. No new intra- axial abnormalities. Improved edema, mass effect. No evidence of acute infarction. * Head CT (08/04/16) showed acute extra-axial hemorrhage with blood layering in the extra-axial space. Increase in sulcal effacement, mass effect and midline shift. There is no evidence of herniation. This follows removal of the surgical drain identified previously. * Head CT (08/06/16): status post surgical intervention, placement of drainage catheter into the extra-axial space at the site prior subdural hematoma edema, mass effect and midline shift have improved considerably. No new or significant findings identified. * Head CT (08/07/16): status post drainage of right subdural hematoma. Drainage catheter is nora in the extra axial space. Air and fluid in the usbdral space with an average thickeness of 9mm * Head CT (08/10/16): status post removal right sided subdural drainage catheter. Small residual mixed attenuation subdural collection with diminished amount of subdural air. Persistent mild mass effect with compressive effects on the right cerebral hemisphere. Minial right to left midline shift. Dysconjugate gaze and/ or strabismus. 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 status post right sided cataract surgery * Head CT (08/13/16): redemonstrated to small to medium sized hypodense of residual right sided subdural hematoma. Minmindal right to left midline shift. Previously noted small amount of subdural air on prior study has undegone further resoprtion. Persistent mild subjacent mass effect with compression of cerebral sulci and mild compression of right lateral ventricle. No evidence of obstructive hydrocephalus. * POD: s/p [place] hole and evacuation of subdural hemorrhage with Dang and David drain * POD s/p right frontotemporal craniotomy; evacuation of acute subdural drain present * Removal of drain on 08/03/16 * S/p trach 08/15/16 * Per neurosurgery, prefers patient off anticoagulation * continue Neurochecks * on NS 100cc/hr * Recommended by Neurology, for Amantidine and Ritalin, and NS 100cc/hr * now stable for floor per icu/neuro * Neurosurgery: Dr. Bolden on board and has full management-- * Neurology: Dr Bonner on board Status: Acute Acute Respiratory Failure Assessment & Plan: * Plan to attempt switching to fenestrated trach * Multiple intubation/Reintubations during hospitalization * Continue Duonebs RQ6 [facility] * Start Acetylcysteine 4 ml INH Q6h [facility] for thick secretions * Continue suctioning * Continue Flonase 1 spr Bo BID * Trach in place * General Surgery (Dr. Levin) on board Status: Acute Hypertension Assessment & Plan: * NS 100c cc/hr * Lisinopril 10mg PO daily * Monitor vitals signs Status: Chronic Diabetes Assessment & Plan: * [id number]: 5.9 * Controlled * Accuchecks Q6 hours * Regular insulin sliding scale subq Q 6hours * on feedings Status: Chronic Cough Assessment & Plan: * Possible pneumonia * f/u sputum cx * CXR: No dense consolidation. A mild central bronchitis under central mid mild pulmonary vascular congestion are differential considerations. ESBL+ UTI; Leukocytosis Assessment & Plan: * Blood cultures X2: negative thus far urine culture (08/12/16), blood culture negative (08/17) * Elevated white count in 31-->24-->24-->14-->11.9-->11.3-->13.2-->11.0 * D/C Cefepime 1 gram Q 12hour, started on Primaxin IV and held Vancomycin 1g IV Q 12hours evening dose; pending trough level * Febrile, leukocytosis * UA: pyuria, hematuria, +esterase; urine culture: gram negative bebo pending speciation * Fever: on hypothermic blanket * Contact isolation Prophylactic measure Assessment & Plan: * Neurosurgery prefers patient off anticoagulation per prior discussion with ICU * Pepcid 20mg PO daily * No benzos * Seizure prophylaxis * s/p trach * PICC line * Feeding tube placed today <Austin Moreau H - Last Filed: 08/23/16 15:59> Objective - Vital Signs/Intake and Output Vital Signs (last 24 hours): Temp Pulse Resp BP Pulse Ox 98.8 F 83 20 136/87 97 08/23/16 02:03 08/23/16 02:03 08/23/16 02:03 08/23/16 02:03 08/23/16 02:03 Intake and Output: 08/23/16 08/23/16 06:59 18:59 Intake Total 700 550 Balance 700 550 - Medications Medications: Current Medications Acetaminophen (Tylenol 650mg/20.3ml Solution Ud) 650 mg NG Q6 PRN PRN Reason: Fever >100.4 F Last Admin: 08/16/16 21:12 Dose: 650 mg Acetylcysteine (Acetylcysteine 20%) 4 ml INH Q6H [facility] Last Admin: 08/23/16 13:38 Dose: 4 ml Albuterol/Ipratropium (Duoneb 3 Mg/0.5 Mg (3 Ml) Ud) 3 ml INH RQ6 [facility] Last Admin: 08/23/16 08:19 Dose: 3 ml Amantadine HCl (Amantadine 100 Mg Cap) 100 mg PO BID [facility] Last Admin: 08/23/16 11:07 Dose: 100 mg Divalproex Sodium (Depakote Er) 500 mg PO DAILY [facility] Last Admin: 08/23/16 11:07 Dose: 500 mg Famotidine (Pepcid) 20 mg PO DAILY [facility] Last Admin: 08/23/16 11:07 Dose: 20 mg Fluticasone Propionate (Flonase) 1 spr BO BID [facility] Last Admin: 08/23/16 11:14 Dose: 1 spray Home Med (Patient's Own Drops) 1 drop OS BID [facility] Stop: 09/19/16 18:01 Last Admin: 08/23/16 11:10 Dose: 1 drop Imipenem/Cilastatin Sodium 500 (mg/ Sodium Chloride) 100 mls @ 100 mls/hr IVPB Q6H [facility] Last Admin: 08/23/16 11:23 Dose: 100 mls/hr Latanoprost (Xalatan Opht) 0 ml OD HS [facility] Stop: 09/05/16 18:00 Last Admin: 08/22/16 22:45 Dose: 2.5 ml Lisinopril (Zestril) 10 mg PO DAILY [facility] Last Admin: 08/23/16 11:07 Dose: 10 mg Lorazepam (Ativan) 0.5 mg IVP Q6H PRN PRN Reason: Anxiety Last Admin: 08/23/16 01:25 Dose: 0.5 mg Senna/Docusate Sodium (Senokot S 50 Mg-8.6 Mg) 1 tab PO HS [facility] Last Admin: 08/22/16 22:50 Dose: 1 tab Timolol Maleate (Timoptic 0.5% Oph Soln) 0 drop OD DAILY [facility] Last Admin: 08/23/16 11:10 Dose: 1 drop - Labs Labs: 08/21/16 06:52 08/21/16 06:52 PT 12.4 SECONDS (9.7-12.2) H 08/18/16 06:26 INR 1.1 08/18/16 06:26 APTT 29 SECONDS (21-34) 08/18/16 06:26 Attending/Attestation - Attestation I have personally seen and examined this patient.: Yes I have fully participated in the care of the patient.: Yes I have reviewed all pertinent clinical information, including history, physical exam and plan: Yes Notes (Text): Medical attending: Patient was seen and examined by me, agrees the above note by medical care evaluation specialist. I like yesterday the patient is interactive with us. He's able to grasp my hand on bilaterally. He's also able to plantar and dorsiflex bilateral feet as well as lift his legs up for greater than several seconds. Family members were present and we again answered and discuss questions that they had Hopefully he can be switched a fenestrated trach next week. I did take the liberty of placing my hand over his current trach and he was able to take deep breaths in and out with some coughing without any difficulty. Thank you very much, Austin Moreau
[2016-08-23] MEDS: Divalproex 500 mg ER Tab PO SCH (11:07)
[2016-08-23] MEDS: [UNRECOGNIZED DRUG - OTHER] OS SCH ×2 (11:10→17:31)
[2016-08-23] MEDS: Fluticasone Nasal 50 mcg/Spray NAS SCH ×2 (11:14→17:28)
[2016-08-23] MEDS: Latanoprost 2.5 ml Opht Soln OD SCH (22:36)
[2016-08-23] MEDS: Docusate-Senna 50 mg-8.6 mg Tab PO SCH (22:36)
[2016-08-24] MEDS: Acetylcysteine 20% Inhal Soln (4ml) INH SCH ×4 (01:57→20:07)
[2016-08-24] MEDS: Albuterol-Ipratrop 3 mg / 0.5 (3 ml) UD INH SCH ×4 (01:57→20:07)
--- NOTE | 2016-08-24 07:08 | CP.PCM.PN ---
<Cortney Arambula - Last Filed: 08/24/16 14:24> Subjective - Date & Time of Evaluation Date of Evaluation: 08/24/16 Time of Evaluation: 07:08 - Subjective Subjective: Patient seen and examined at bedside. Patient is in no acute distress. No events overnight per nursing. Family present at bedside. Family continues to inquire regarding exact time frame patient will be switched to fenestrated trach. They also inquire regarding patient being able to speak and discontinuation of PEG tube. Stressed to family that PEG tube will not be removed and we need to take things one step at a time. Full ROS cannot be obtained. Objective - Vital Signs/Intake and Output Vital Signs (last 24 hours): Temp Pulse Resp BP Pulse Ox 98.5 F 81 20 127/80 100 08/23/16 23:10 08/23/16 23:10 08/23/16 23:10 08/24/16 04:45 08/23/16 23:10 - Medications Medications: Current Medications Acetaminophen (Tylenol 650mg/20.3ml Solution Ud) 650 mg NG Q6 PRN PRN Reason: Fever >100.4 F Last Admin: 08/16/16 21:12 Dose: 650 mg Acetylcysteine (Acetylcysteine 20%) 4 ml INH Q6H [facility] Last Admin: 08/24/16 01:57 Dose: 4 ml Albuterol/Ipratropium (Duoneb 3 Mg/0.5 Mg (3 Ml) Ud) 3 ml INH RQ6 [facility] Last Admin: 08/24/16 01:57 Dose: 3 ml Amantadine HCl (Amantadine 100 Mg Cap) 100 mg PO BID [facility] Last Admin: 08/23/16 17:28 Dose: 100 mg Divalproex Sodium (Depakote Er) 500 mg PO DAILY [facility] Last Admin: 08/23/16 11:07 Dose: 500 mg Famotidine (Pepcid) 20 mg PO DAILY [facility] Last Admin: 08/23/16 11:07 Dose: 20 mg Fluticasone Propionate (Flonase) 1 spr BO BID [facility] Last Admin: 08/23/16 17:28 Dose: 1 spray Home Med (Patient's Own Drops) 1 drop OS BID [facility] Stop: 09/19/16 18:01 Last Admin: 08/23/16 17:31 Dose: 1 drop Imipenem/Cilastatin Sodium 500 (mg/ Sodium Chloride) 100 mls @ 100 mls/hr IVPB Q6H [facility] Last Admin: 08/24/16 05:37 Dose: 100 mls/hr Latanoprost (Xalatan Opht) 0 ml OD HS [facility] Stop: 09/05/16 18:00 Last Admin: 08/23/16 22:36 Dose: 2.5 ml Lisinopril (Zestril) 10 mg PO DAILY [facility] Last Admin: 08/23/16 11:07 Dose: 10 mg Lorazepam (Ativan) 0.5 mg IVP Q6H PRN PRN Reason: Anxiety Last Admin: 08/23/16 22:40 Dose: 0.5 mg Senna/Docusate Sodium (Senokot S 50 Mg-8.6 Mg) 1 tab PO HS [facility] Last Admin: 08/23/16 22:36 Dose: 1 tab Timolol Maleate (Timoptic 0.5% Ophth Soln) 0 drop OD DAILY [facility] Last Admin: 08/23/16 11:10 Dose: 1 drop - Labs Labs: 08/21/16 06:52 08/21/16 06:52 PT 12.4 SECONDS (9.7-12.2) H 08/18/16 06:26 INR 1.1 08/18/16 06:26 APTT 29 SECONDS (21-34) 08/18/16 06:26 - Constitutional Appears: Non-toxic, No Acute Distress - Head Exam Head Exam: NORMAL INSPECTION, NORMOCEPHALIC - Eye Exam Additional comments: esotropia - Neck Exam Additional comments: trach in place - Respiratory Exam Respiratory Exam: Rhonchi - Cardiovascular Exam Cardiovascular Exam: +S1, +S2. absent: Bradycardia, Tachycardia - GI/Abdominal Exam GI & Abdominal Exam: Soft, Normal Bowel Sounds Additional comments: PEG in place - Extremities Exam Extremities Exam: Normal Inspection. absent: Pedal Edema, Tenderness - Neurological Exam Neurological Exam: Alert, Awake, Oriented x3 - Psychiatric Exam Psychiatric exam: Normal Affect, Normal Mood - Skin Skin Exam: Intact, Normal Color Assessment and Plan - Assessment and Plan (Free Text) Assessment: Cerebral hemorrhage Assessment & Plan: * Continue Depakote * Ritalin discontinued. * Patient was agitated yesterday. Neurology, Dr. Bonner, discussed with family starting Depakote 500 mg po qd for seizure ppx, headache, and mood stabilization. 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 No midline shaft, herniation or hydrocephalus. * Head CT (07/30/16): CT Head without contrast: 1. The left orbit appears to be rotated 90 degrees to the right while the right orbit appears to be oriented normally. 2. 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 This results in severe mass effect on the underlying brain, including 1.4 cm of leftward midline shift and compression of the right lateral ventricle. Asymmetric enlargement of the right temporal horn suggestive of early entrapment. * Head CT (08/02/16): satisfactory postoperative status following craniotomy, evacuation of large extra-axial fluid collection on the right. No new intra- axial abnormalities. Improved edema, mass effect. No evidence of acute infarction. * Head CT (08/04/16) showed acute extra-axial hemorrhage with blood layering in the extra-axial space. Increase in sulcal effacement, mass effect and midline shift. There is no evidence of herniation. This follows removal of the surgical drain identified previously. * Head CT (08/06/16): status post surgical intervention, placement of drainage catheter into the extra-axial space at the site prior subdural hematoma edema, mass effect and midline shift have improved considerably. No new or significant findings identified. * Head CT (08/07/16): status post drainage of right subdural hematoma. Drainage catheter is nora in the extra axial space. Air and fluid in the usbdral space with an average thickeness of 9mm * Head CT (08/10/16): status post removal right sided subdural drainage catheter. Small residual mixed attenuation subdural collection with diminished amount of subdural air. Persistent mild mass effect with compressive effects on the right cerebral hemisphere. Minial right to left midline shift. Dysconjugate gaze and/ or strabismus. 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 status post right sided cataract surgery * Head CT (08/13/16): redemonstrated to small to medium sized hypodense of residual right sided subdural hematoma. Minmindal right to left midline shift. Previously noted small amount of subdural air on prior study has undegone further resoprtion. Persistent mild subjacent mass effect with compression of cerebral sulci and mild compression of right lateral ventricle. No evidence of obstructive hydrocephalus. * POD: s/p [place] hole and evacuation of subdural hemorrhage with [place]arn[place] and David drain * POD s/p right frontotemporal craniotomy; evacuation of acute subdural drain present * Removal of drain on 08/03/16 * S/p trach 08/15/16 * Per neurosurgery, prefers patient off anticoagulation * continue Neurochecks * on NS 100cc/hr * Recommended by Neurology, for Amantidine and Ritalin, and NS 100cc/hr * now stable for floor per icu/neuro * Neurosurgery: Dr. Bolden on board and has full management-- * Neurology: Dr Bonner on board Status: Acute Acute Respiratory Failure Assessment & Plan: * Plan to attempt switching to fenestrated trach * Multiple intubation/Reintubations during hospitalization * Continue Duonebs RQ6 [facility] * Start Acetylcysteine 4 ml INH Q6h [facility] for thick secretions * Continue suctioning * Continue Flonase 1 spr Bo BID * Trach in place * General Surgery (Dr. Levin) on board Status: Acute Hypertension Assessment & Plan: * NS 100c cc/hr * Lisinopril 10mg PO daily * Monitor vitals signs Status: Chronic Diabetes Assessment & Plan: * [id number]: 5.9 * Controlled * Accuchecks Q6 hours * Regular insulin sliding scale subq Q 6hours * on feedings Status: Chronic Cough Assessment & Plan: * Possible pneumonia * f/u sputum cx * CXR: No dense consolidation. A mild central bronchitis under central mid mild pulmonary vascular congestion are differential considerations. ESBL+ UTI; Leukocytosis Assessment & Plan: * Blood cultures X2: negative thus far urine culture (08/12/16), blood culture negative (08/17) * Elevated white count in 31-->24-->24-->14-->11.9-->11.3-->13.2-->11.0 * D/C Cefepime 1 gram Q 12hour, started on Primaxin IV and held Vancomycin 1g IV Q 12hours evening dose; pending trough level * Febrile, leukocytosis * UA: pyuria, hematuria, +esterase; urine culture: gram negative bebo pending speciation * Fever: on hypothermic blanket * Contact isolation Prophylactic measure Assessment & Plan: * Neurosurgery prefers patient off anticoagulation per prior discussion with ICU * Pepcid 20mg PO daily * No benzos * Seizure prophylaxis * s/p trach * PICC line * Feeding tube placed today <Austin Moreau H - Last Filed: 08/24/16 15:56> Objective - Vital Signs/Intake and Output Vital Signs (last 24 hours): Temp Pulse Resp BP Pulse Ox 98.3 F 77 18 129/85 97 08/24/16 08:00 08/24/16 08:00 08/24/16 08:00 08/24/16 08:00 08/24/16 08:00 Intake and Output: 08/24/16 08/24/16 06:59 18:59 Intake Total 700 Balance 700 - Medications Medications: Current Medications Acetaminophen (Tylenol 650mg/20.3ml Solution Ud) 650 mg NG Q6 PRN PRN Reason: Fever >100.4 F Last Admin: 08/16/16 21:12 Dose: 650 mg Acetylcysteine (Acetylcysteine 20%) 4 ml INH Q6H [facility] Last Admin: 08/24/16 13:42 Dose: 4 ml Albuterol/Ipratropium (Duoneb 3 Mg/0.5 Mg (3 Ml) Ud) 3 ml INH RQ6 [facility] Last Admin: 08/24/16 13:42 Dose: 3 ml Amantadine HCl (Amantadine 100 Mg Cap) 100 mg PO BID [facility] Last Admin: 08/24/16 10:15 Dose: 100 mg Divalproex Sodium (Depakote Er) 500 mg PO DAILY [facility] Last Admin: 08/24/16 10:15 Dose: 500 mg Famotidine (Pepcid) 20 mg PO DAILY [facility] Last Admin: 08/24/16 10:18 Dose: 20 mg Fluticasone Propionate (Flonase) 1 spr BO BID [facility] Last Admin: 08/24/16 10:18 Dose: 1 spray Home Med (Patient's Own Drops) 1 drop OS BID [facility] Stop: 09/19/16 18:01 Last Admin: 08/24/16 10:18 Dose: 1 drop Imipenem/Cilastatin Sodium 500 (mg/ Sodium Chloride) 100 mls @ 100 mls/hr IVPB Q6H [facility] Last Admin: 08/24/16 12:26 Dose: 100 mls/hr Latanoprost (Xalatan Opht) 0 ml OD HS [facility] Stop: 09/05/16 18:00 Last Admin: 08/23/16 22:36 Dose: 2.5 ml Lisinopril (Zestril) 10 mg PO DAILY [facility] Last Admin: 08/24/16 10:15 Dose: 10 mg Lorazepam (Ativan) 0.5 mg IVP Q6H PRN PRN Reason: Anxiety Last Admin: 08/23/16 22:40 Dose: 0.5 mg Senna/Docusate Sodium (Senokot S 50 Mg-8.6 Mg) 1 tab PO HS [facility] Last Admin: 08/23/16 22:36 Dose: 1 tab Timolol Maleate (Timoptic 0.5% Ophth Soln) 0 drop OD DAILY [facility] Last Admin: 08/24/16 10:16 Dose: 1 drop - Labs Labs: 08/24/16 07:56 08/24/16 07:56 PT 12.4 SECONDS (9.7-12.2) H 08/18/16 06:26 INR 1.1 08/18/16 06:26 APTT 29 SECONDS (21-34) 08/18/16 06:26 Attending/Attestation - Attestation I have personally seen and examined this patient.: Yes I have fully participated in the care of the patient.: Yes I have reviewed all pertinent clinical information, including history, physical exam and plan: Yes Notes (Text): Medical attending: Patient was seen and examined by me, agrees the above note by biomedical technician. The the family again was present at bedside and we answered a lot of questions. As mentioned before probably the patient will be ready to have the change in the trach to a fenestrated one sometime next week Thank you very much, Austin Moreau
[2016-08-24 08:13] LABS: BASO # 0.1 K/uL (0.0-0.2); BASO % 0.5 % (0.0-2.0); EOS # 0.5 K/uL (0.0-0.7); HEMATOCRIT 30.7 % (35.0-51.0); LYMPH # 2.4 K/uL (1.0-4.3); LYMPH % 23.2 % (20.0-40.0); MEAN CELL VOLUME 79.8 fL (80.0-94.0); MEAN CORPUSCULAR HEMOGLOBIN 26.1 pg (27.0-31.0); MEAN CORPUSCULAR HGB CONC 32.6 g/dL (33.0-37.0); MEAN PLATELET VOLUME 8.4 fL (7.2-11.7); MONO # 0.8 K/uL (0.0-0.8); MONO % 7.7 % (0.0-10.0); RED CELL DISTRIBUTION WIDTH 14.5 % (11.5-14.5); WHITE BLOOD COUNT 10.2 K/uL (4.8-10.8)
[2016-08-24 09:47] LABS: CHLORIDE 103 mmol/L (98-107); POTASSIUM 3.6 mmol/L (3.6-5.2); SODIUM 138 mmol/L (132-148)
[2016-08-24 09:49] LABS: AST/SGOT 33 U/L (17-59); BILIRUBIN,TOTAL 0.6 mg/dL (0.2-1.3); CARBON DIOXIDE 23 mmol/L (22-30); GFR AFRICAN-AMERICAN > 60
[2016-08-24 09:50] LABS: ALB/GLOB RATIO 0.9 (1.0-2.1); ALKALINE PHOSPHATASE 113 U/L (38-126); ALT/SGPT 49 U/L (21-72); BLOOD UREA NITROGEN 13 mg/dL (9-20); CALCIUM 8.9 mg/dl (8.6-10.4); GLUCOSE,RANDOM 157 mg/dL (75-110); TOTAL PROTEIN 6.8 g/dL (6.3-8.3)
[2016-08-24] MEDS: Divalproex 500 mg ER Tab PO SCH (10:15)
[2016-08-24] MEDS: Fluticasone Nasal 50 mcg/Spray NAS SCH ×2 (10:18→17:08)
[2016-08-24] MEDS: [UNRECOGNIZED DRUG - OTHER] OS SCH ×2 (10:18→17:08)
[2016-08-24] MEDS: Docusate-Senna 50 mg-8.6 mg Tab PO SCH (21:35)
[2016-08-24] MEDS: Latanoprost 2.5 ml Opht Soln OD SCH (21:36)
[2016-08-25] MEDS: Albuterol-Ipratrop 3 mg / 0.5 (3 ml) UD INH SCH ×4 (02:08→20:50)
[2016-08-25] MEDS: Acetylcysteine 20% Inhal Soln (4ml) INH SCH ×4 (02:08→20:50)
--- NOTE | 2016-08-25 03:33 | CP.PCM.PN ---
<Puma Lucas - Last Filed: 08/25/16 03:30> Subjective - Date & Time of Evaluation Date of Evaluation: 08/25/16 Time of Evaluation: :17 - Subjective Subjective: PGY 1 Med Note- Dr. Moreau's service Patient seen and examined at bedside. Patient is in no acute distress. No events overnight per nursing. Clinical partner bedside. Full ROS cannot be obtained at this time due to patient's clinical presentation. Objective - Vital Signs/Intake and Output Vital Signs (last 24 hours): Temp Pulse Resp BP Pulse Ox 98.1 F 80 20 143/84 97 08/24/16 23:20 08/24/16 23:20 08/24/16 23:20 08/24/16 23:20 08/24/16 23:20 Intake and Output: 08/24/16 08/25/16 18:59 06:59 Intake Total 700 600 Output Total 500 Balance 700 100 - Medications Medications: Current Medications Acetaminophen (Tylenol 650mg/20.3ml Solution Ud) 650 mg NG Q6 PRN PRN Reason: Fever >100.4 F Last Admin: 08/16/16 21:12 Dose: 650 mg Acetylcysteine (Acetylcysteine 20%) 4 ml INH Q6H [facility] Last Admin: 08/25/16 02:08 Dose: 4 ml Albuterol/Ipratropium (Duoneb 3 Mg/0.5 Mg (3 Ml) Ud) 3 ml INH RQ6 [facility] Last Admin: 08/25/16 02:08 Dose: 3 ml Amantadine HCl (Amantadine 100 Mg Cap) 100 mg PO BID [facility] Last Admin: 08/24/16 17:07 Dose: 100 mg Divalproex Sodium (Depakote Er) 500 mg PO DAILY [facility] Last Admin: 08/24/16 10:15 Dose: 500 mg Famotidine (Pepcid) 20 mg PO DAILY [facility] Last Admin: 08/24/16 10:18 Dose: 20 mg Fluticasone Propionate (Flonase) 1 spr BO BID [facility] Last Admin: 08/24/16 17:08 Dose: 1 spray Home Med (Patient's Own Drops) 1 drop OS BID [facility] Stop: 09/19/16 18:01 Last Admin: 08/24/16 17:08 Dose: 1 drop Imipenem/Cilastatin Sodium 500 (mg/ Sodium Chloride) 100 mls @ 100 mls/hr IVPB Q6H [facility] Last Admin: 08/25/16 00:44 Dose: 100 mls/hr Latanoprost (Xalatan Opht) 0 ml OD HS [facility] Stop: 09/05/16 18:00 Last Admin: 08/24/16 21:36 Dose: 1 ml Lisinopril (Zestril) 10 mg PO DAILY [facility] Last Admin: 08/24/16 10:15 Dose: 10 mg Lorazepam (Ativan) 0.5 mg IVP Q6H PRN PRN Reason: Anxiety Last Admin: 08/23/16 22:40 Dose: 0.5 mg Senna/Docusate Sodium (Senokot S 50 Mg-8.6 Mg) 1 tab PO HS [facility] Last Admin: 08/24/16 21:35 Dose: 1 tab Timolol Maleate (Timoptic 0.5% Ophth Soln) 0 drop OD DAILY [facility] Last Admin: 08/24/16 10:16 Dose: 1 drop - Labs Labs: 08/24/16 07:56 08/24/16 07:56 PT 12.4 SECONDS (9.7-12.2) H 08/18/16 06:26 INR 1.1 08/18/16 06:26 APTT 29 SECONDS (21-34) 08/18/16 06:26 - Constitutional Appears: Non-toxic, No Acute Distress - Head Exam Head Exam: NORMAL INSPECTION - Eye Exam Additional comments: esotropia of left eye - ENT Exam Additional comments: trach present with some secretions noted - Respiratory Exam Respiratory Exam: NORMAL BREATHING PATTERN. absent: Wheezes - Cardiovascular Exam Cardiovascular Exam: +S1, +S2 - GI/Abdominal Exam GI & Abdominal Exam: Soft, Normal Bowel Sounds Additional comments: PEG in place - Extremities Exam Extremities Exam: Normal Capillary Refill. absent: Joint Swelling - Neurological Exam Neurological Exam: Awake - Psychiatric Exam Psychiatric exam: Normal Affect, Normal Mood - Skin Skin Exam: Intact, Normal Color Assessment and Plan - Assessment and Plan (Free Text) Assessment: Cerebral hemorrhage Assessment & Plan: * Continue Depakote * Ritalin discontinued. * Patient was agitated yesterday. Neurology, Dr. Bonner, discussed with family starting Depakote 500 mg po qd for seizure ppx, headache, and mood stabilization. 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 No midline shaft, herniation or hydrocephalus. * Head CT (07/30/16): CT Head without contrast: 1. The left orbit appears to be rotated 90 degrees to the right while the right orbit appears to be oriented normally. 2. 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 This results in severe mass effect on the underlying brain, including 1.4 cm of leftward midline shift and compression of the right lateral ventricle. Asymmetric enlargement of the right temporal horn suggestive of early entrapment. * Head CT (08/02/16): satisfactory postoperative status following craniotomy, evacuation of large extra-axial fluid collection on the right. No new intra- axial abnormalities. Improved edema, mass effect. No evidence of acute infarction. * Head CT (08/04/16) showed acute extra-axial hemorrhage with blood layering in the extra-axial space. Increase in sulcal effacement, mass effect and midline shift. There is no evidence of herniation. This follows removal of the surgical drain identified previously. * Head CT (08/06/16): status post surgical intervention, placement of drainage catheter into the extra-axial space at the site prior subdural hematoma edema, mass effect and midline shift have improved considerably. No new or significant findings identified. * Head CT (08/07/16): status post drainage of right subdural hematoma. Drainage catheter is nora in the extra axial space. Air and fluid in the usbdral space with an average thickeness of 9mm * Head CT (08/10/16): status post removal right sided subdural drainage catheter. Small residual mixed attenuation subdural collection with diminished amount of subdural air. Persistent mild mass effect with compressive effects on the right cerebral hemisphere. Minial right to left midline shift. Dysconjugate gaze and/ or strabismus. 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 status post right sided cataract surgery * Head CT (08/13/16): redemonstrated to small to medium sized hypodense of residual right sided subdural hematoma. Minmindal right to left midline shift. Previously noted small amount of subdural air on prior study has undegone further resoprtion. Persistent mild subjacent mass effect with compression of cerebral sulci and mild compression of right lateral ventricle. No evidence of obstructive hydrocephalus. * POD: s/p [place] hole and evacuation of subdural hemorrhage with Dang and David drain * POD s/p right frontotemporal craniotomy; evacuation of acute subdural drain present * Removal of drain on 08/03/16 * S/p trach 08/15/16 * Per neurosurgery, prefers patient off anticoagulation * continue Neurochecks * on NS 100cc/hr * Recommended by Neurology, for Amantidine and Ritalin, and NS 100cc/hr * now stable for floor per icu/neuro * Neurosurgery: Dr. Bolden on board and has full management-- * Neurology: Dr Bonner on board Status: Acute Acute Respiratory Failure Assessment & Plan: * Plan to attempt switching to fenestrated trach * Multiple intubation/Reintubations during hospitalization * Continue Duonebs RQ6 [facility] * Start Acetylcysteine 4 ml INH Q6h [facility] for thick secretions * Continue suctioning * Continue Flonase 1 spr Bo BID * Trach in place * General Surgery (Dr. Levin) on board * Cont to monitor Status: Acute Hypertension Assessment & Plan: * NS 100c cc/hr * Lisinopril 10mg PO daily * Monitor vitals signs Status: Chronic Diabetes Assessment & Plan: * [id number]: 5.9 * Controlled * Accuchecks Q6 hours * Regular insulin sliding scale subq Q 6hours * on feedings Status: Chronic Cough Assessment & Plan: * Possible pneumonia * Sputum cx- normal val * CXR: No dense consolidation. A mild central bronchitis under central mid mild pulmonary vascular congestion are differential considerations. ESBL+ UTI; Leukocytosis Assessment & Plan: * Blood cultures X2: negative thus far urine culture (08/12/16), blood culture negative (08/17) * Elevated white count in 31-->24-->24-->14-->11.9-->11.3-->13.2-->11.0 * D/C Cefepime 1 gram Q 12hour, started on Primaxin IV and held Vancomycin 1g IV Q 12hours evening dose; pending trough level * Febrile, leukocytosis * UA: pyuria, hematuria, +esterase; urine culture: gram negative bebo pending speciation * Fever: on hypothermic blanket * Contact isolation Prophylactic measure Assessment & Plan: * Neurosurgery prefers patient off anticoagulation per prior discussion with ICU * Pepcid 20mg PO daily * No benzos * Seizure prophylaxis * s/p trach * PICC line * Feeding tube in place <MoreauAustin can H - Last Filed: 08/25/16 09:06> Objective - Vital Signs/Intake and Output Vital Signs (last 24 hours): Temp Pulse Resp BP Pulse Ox 98.0 F 81 20 131/98 H 100 08/25/16 08:51 08/25/16 08:51 08/25/16 08:51 08/25/16 08:51 08/25/16 08:51 Intake and Output: 08/25/16 08/25/16 06:59 18:59 Intake Total 1200 Output Total 500 Balance 700 - Medications Medications: Current Medications Acetaminophen (Tylenol 650mg/20.3ml Solution Ud) 650 mg NG Q6 PRN PRN Reason: Fever >100.4 F Last Admin: 08/16/16 21:12 Dose: 650 mg Acetylcysteine (Acetylcysteine 20%) 4 ml INH Q6H [facility] Last Admin: 08/25/16 02:08 Dose: 4 ml Albuterol/Ipratropium (Duoneb 3 Mg/0.5 Mg (3 Ml) Ud) 3 ml INH RQ6 [facility] Last Admin: 08/25/16 02:08 Dose: 3 ml Amantadine HCl (Amantadine 100 Mg Cap) 100 mg PO BID [facility] Last Admin: 08/24/16 17:07 Dose: 100 mg Divalproex Sodium (Depakote Er) 500 mg PO DAILY [facility] Last Admin: 08/24/16 10:15 Dose: 500 mg Famotidine (Pepcid) 20 mg PO DAILY [facility] Last Admin: 08/24/16 10:18 Dose: 20 mg Fluticasone Propionate (Flonase) 1 spr BO BID [facility] Last Admin: 08/24/16 17:08 Dose: 1 spray Home Med (Patient's Own Drops) 1 drop OS BID [facility] Stop: 09/19/16 18:01 Last Admin: 08/24/16 17:08 Dose: 1 drop Imipenem/Cilastatin Sodium 500 (mg/ Sodium Chloride) 100 mls @ 100 mls/hr IVPB Q6H [facility] Last Admin: 08/25/16 05:36 Dose: 100 mls/hr Latanoprost (Xalatan Opht) 0 ml OD HS [facility] Stop: 09/05/16 18:00 Last Admin: 08/24/16 21:36 Dose: 1 ml Lisinopril (Zestril) 10 mg PO DAILY [facility] Last Admin: 08/24/16 10:15 Dose: 10 mg Lorazepam (Ativan) 0.5 mg IVP Q6H PRN PRN Reason: Anxiety Last Admin: 08/23/16 22:40 Dose: 0.5 mg Senna/Docusate Sodium (Senokot S 50 Mg-8.6 Mg) 1 tab PO HS [facility] Last Admin: 08/24/16 21:35 Dose: 1 tab Timolol Maleate (Timoptic 0.5% Ophth Soln) 0 drop OD DAILY [facility] Last Admin: 08/24/16 10:16 Dose: 1 drop - Labs Labs: 08/24/16 07:56 08/24/16 07:56 PT 12.4 SECONDS (9.7-12.2) H 08/18/16 06:26 INR 1.1 08/18/16 06:26 APTT 29 SECONDS (21-34) 08/18/16 06:26 Attending/Attestation - Attestation I have personally seen and examined this patient.: Yes I have fully participated in the care of the patient.: Yes I have reviewed all pertinent clinical information, including history, physical exam and plan: Yes Notes (Text): Medical Attending: Patient was seen and examined by me. Agree with the above note by the resident. The patient was awake and alert, he was trying to write something on a paper to communicate with us, but what he wrote appears to be in [place]. Otherwise he did not appear to be in any acute distress. I placed my finger over the trach and he was able to produce a strong cough when I signaled him to. Hopefully can change to a fenestrated trach this week. thank you Austin Moreau
[2016-08-25] MEDS ORDERED: Aluminum Hydroxide/Magnesium Hydroxide Susp (30 mL) PO ONE (04:43)
[2016-08-25] MEDS: Divalproex 500 mg ER Tab PO SCH (09:49)
[2016-08-25] MEDS: Fluticasone Nasal 50 mcg/Spray NAS SCH ×2 (09:50→18:18)
[2016-08-25] MEDS: [UNRECOGNIZED DRUG - OTHER] OS SCH (18:26)
[2016-08-25] MEDS: Latanoprost 2.5 ml Opht Soln OD SCH (21:58)
[2016-08-25] MEDS: Docusate-Senna 50 mg-8.6 mg Tab PO SCH (21:58)
[2016-08-26] MEDS: Acetylcysteine 20% Inhal Soln (4ml) INH SCH ×4 (01:49→20:25)
[2016-08-26] MEDS: Albuterol-Ipratrop 3 mg / 0.5 (3 ml) UD INH SCH ×4 (01:49→20:25)
--- NOTE | 2016-08-26 08:29 | CP.PCM.PN ---
Subjective - Date & Time of Evaluation Date of Evaluation: 08/26/16 Time of Evaluation: 08:00 - Subjective Subjective: Patient was seen and examined by me. His mental status is not different from before He was awake, alert and trying to write things on a paper but in [place]ali. He points a lot to his mouth indicating he wants to eat something. Currently on isosource via peg and also IVF. Moving all extremities as reported before. He is moving air well. When I place a finger over the trach - he is able to produce a strong cough as well as move air in and out well. Objective - Vital Signs/Intake and Output Vital Signs (last 24 hours): Temp Pulse Resp BP Pulse Ox 98 F 87 20 140/82 98 08/25/16 23:00 08/25/16 23:00 08/25/16 23:00 08/25/16 23:00 08/25/16 23:00 Intake and Output: 08/26/16 08/26/16 06:59 18:59 Intake Total 1100 Output Total 300 Balance 800 - Medications Medications: Current Medications Acetaminophen (Tylenol 650mg/20.3ml Solution Ud) 650 mg NG Q6 PRN PRN Reason: Fever >100.4 F Last Admin: 08/16/16 21:12 Dose: 650 mg Acetylcysteine (Acetylcysteine 20%) 4 ml INH Q6H [facility] Last Admin: 08/26/16 01:49 Dose: 4 ml Albuterol/Ipratropium (Duoneb 3 Mg/0.5 Mg (3 Ml) Ud) 3 ml INH RQ6 [facility] Last Admin: 08/26/16 01:49 Dose: 3 ml Amantadine HCl (Amantadine 100 Mg Cap) 100 mg PO BID [facility] Last Admin: 08/25/16 18:25 Dose: 100 mg Divalproex Sodium (Depakote Er) 500 mg PO DAILY [facility] Last Admin: 08/25/16 09:49 Dose: 500 mg Famotidine (Pepcid) 20 mg PO DAILY [facility] Last Admin: 08/25/16 09:49 Dose: 20 mg Fluticasone Propionate (Flonase) 1 spr BO BID [facility] Last Admin: 08/25/16 18:18 Dose: 1 spray Home Med (Patient's Own Drops) 1 drop OS BID [facility] Stop: 09/19/16 18:01 Last Admin: 08/25/16 18:26 Dose: 1 drop Imipenem/Cilastatin Sodium 500 (mg/ Sodium Chloride) 100 mls @ 100 mls/hr IVPB Q6H [facility] Last Admin: 08/26/16 05:21 Dose: 100 mls/hr Latanoprost (Xalatan Opht) 0 ml OD HS [facility] Stop: 09/05/16 18:00 Last Admin: 08/25/16 21:58 Dose: 2.5 ml Lisinopril (Zestril) 10 mg PO DAILY [facility] Last Admin: 08/25/16 09:49 Dose: 10 mg Lorazepam (Ativan) 0.5 mg IVP Q6H PRN PRN Reason: Anxiety Last Admin: 08/23/16 22:40 Dose: 0.5 mg Senna/Docusate Sodium (Senokot S 50 Mg-8.6 Mg) 1 tab PO HS [facility] Last Admin: 08/25/16 21:58 Dose: 1 tab Timolol Maleate (Timoptic 0.5% Ophth Soln) 0 drop OD DAILY [facility] Last Admin: 08/25/16 09:50 Dose: 1 drop - Labs Labs: 08/24/16 07:56 08/24/16 07:56 PT 12.4 SECONDS (9.7-12.2) H 08/18/16 06:26 INR 1.1 08/18/16 06:26 APTT 29 SECONDS (21-34) 08/18/16 06:26 - Constitutional Appears: Well, No Acute Distress - Head Exam Head Exam: NORMAL INSPECTION, NORMOCEPHALIC - Eye Exam Eye Exam: EOMI - ENT Exam ENT Exam: Mucous Membranes Moist - Respiratory Exam Respiratory Exam: Clear to Ausculation Bilateral, NORMAL BREATHING PATTERN. absent: Accessory Muscle Use, Chest Wall Tenderness, Decreased Breath Sounds Additional comments: He is moving air well when I briefly cover the trach - Cardiovascular Exam Cardiovascular Exam: REGULAR RHYTHM - GI/Abdominal Exam GI & Abdominal Exam: Soft, Normal Bowel Sounds - Neurological Exam Neurological Exam: Alert, Awake. absent: Oriented x3 Neuro motor strength exam: Left Upper Extremity: 4, Right Upper Extremity: 4, Left Lower Extremity: 4, Right Lower Extremity: 4 - Psychiatric Exam Psychiatric exam: Depressed, Flat Affect - Skin Skin Exam: Normal Color, Warm Assessment and Plan - Assessment and Plan (Free Text) Assessment: Cerebral hemorrhage Assessment & Plan: 08/26: Stable, he is participating with PT/OT. Next step is to try to change the trach to a fenestrated one. Also continue to monitor the blood pressure as well. * Continue Depakote * Ritalin discontinued. * Patient was agitated yesterday. Neurology, Dr. Bonner, discussed with family starting Depakote 500 mg po qd for seizure ppx, headache, and mood stabilization. 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 No midline shaft, herniation or hydrocephalus. * Head CT (07/30/16): CT Head without contrast: 1. The left orbit appears to be rotated 90 degrees to the right while the right orbit appears to be oriented normally. 2. 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 This results in severe mass effect on the underlying brain, including 1.4 cm of leftward midline shift and compression of the right lateral ventricle. Asymmetric enlargement of the right temporal horn suggestive of early entrapment. * Head CT (08/02/16): satisfactory postoperative status following craniotomy, evacuation of large extra-axial fluid collection on the right. No new intra- axial abnormalities. Improved edema, mass effect. No evidence of acute infarction. * Head CT (08/04/16) showed acute extra-axial hemorrhage with blood layering in the extra-axial space. Increase in sulcal effacement, mass effect and midline shift. There is no evidence of herniation. This follows removal of the surgical drain identified previously. * Head CT (08/06/16): status post surgical intervention, placement of drainage catheter into the extra-axial space at the site prior subdural hematoma edema, mass effect and midline shift have improved considerably. No new or significant findings identified. * Head CT (08/07/16): status post drainage of right subdural hematoma. Drainage catheter is nora in the extra axial space. Air and fluid in the usbdral space with an average thickeness of 9mm * Head CT (08/10/16): status post removal right sided subdural drainage catheter. Small residual mixed attenuation subdural collection with diminished amount of subdural air. Persistent mild mass effect with compressive effects on the right cerebral hemisphere. Minial right to left midline shift. Dysconjugate gaze and/ or strabismus. 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 status post right sided cataract surgery * Head CT (08/13/16): redemonstrated to small to medium sized hypodense of residual right sided subdural hematoma. Minmindal right to left midline shift. Previously noted small amount of subdural air on prior study has undegone further resoprtion. Persistent mild subjacent mass effect with compression of cerebral sulci and mild compression of right lateral ventricle. No evidence of obstructive hydrocephalus. * POD: s/p [place] hole and evacuation of subdural hemorrhage with Dora and David drain * POD s/p right frontotemporal craniotomy; evacuation of acute subdural drain present * Removal of drain on 08/03/16 * S/p trach 08/15/16 * Per neurosurgery, prefers patient off anticoagulation * continue Neurochecks * on NS 100cc/hr * Recommended by Neurology, for Amantidine and Ritalin, and NS 100cc/hr * now stable for floor per icu/neuro * Neurosurgery: Dr. Bolden on board and has full management-- * Neurology: Dr Bonner on board Status: Acute Acute Respiratory Failure Assessment & Plan: 08/26: Plan is to switch to a fenestrated trach. He is moving air well when briefly covering the trach * Plan to attempt switching to fenestrated trach * Multiple intubation/Reintubations during hospitalization * Continue Duonebs RQ6 [facility] * Start Acetylcysteine 4 ml INH Q6h [facility] for thick secretions * Continue suctioning * Continue Flonase 1 spr Bo BID * Trach in place * General Surgery (Dr. Levin) on board * Cont to monitor Status: Acute Hypertension Assessment & Plan: 08/26: Continue to monitor, the highest systolic was in the 140s. * NS 100c cc/hr * Lisinopril 10mg PO daily * Monitor vitals signs Status: Chronic Diabetes Assessment & Plan: * [id number]: 5.9 * Controlled * Accuchecks Q6 hours * Regular insulin sliding scale subq Q 6hours * on feedings Status: Chronic Cough Assessment & Plan: * Possible pneumonia * Sputum cx- normal val * CXR: No dense consolidation. A mild central bronchitis under central mid mild pulmonary vascular congestion are differential considerations. ESBL+ UTI; Leukocytosis Assessment & Plan: 08/26: Today repeat the UA, he has been on primaxin for some time now. * Blood cultures X2: negative thus far urine culture (08/12/16), blood culture negative (08/17) * Elevated white count in 31-->24-->24-->14-->11.9-->11.3-->13.2-->11.0 * D/C Cefepime 1 gram Q 12hour, started on Primaxin IV and held Vancomycin 1g IV Q 12hours evening dose; pending trough level * Febrile, leukocytosis * UA: pyuria, hematuria, +esterase; urine culture: gram negative bebo pending speciation * Contact isolation Prophylactic measure Assessment & Plan: * Neurosurgery prefers patient off anticoagulation per prior discussion with ICU * Pepcid 20mg PO daily * No benzos * Seizure prophylaxis * s/p trach * PICC line * Feeding tube in place
[2016-08-26] MEDS: Divalproex 500 mg ER Tab PO SCH (10:01)
[2016-08-26] MEDS: Fluticasone Nasal 50 mcg/Spray NAS SCH ×2 (10:02→18:13)
[2016-08-26] MEDS: [UNRECOGNIZED DRUG - OTHER] OS SCH ×2 (10:03→18:13)
[2016-08-26 10:51] LABS: RBC URINE 1 /hpf (0-3); URINE BILIRUBIN NEGATIVE (NEGATIVE); URINE BLOOD NEGATIVE (NEGATIVE); URINE COLOR Yellow (YELLOW); URINE GLUCOSE (UA) NORMAL (Normal); URINE KETONE TRACE mg/dL (NEGATIVE); URINE LEUKOCYTE ESTERASE NEG Leu/uL (Negative); URINE PROTEIN NEGATIVE (NEGATIVE); WBC URINE 1 /hpf (0-5)
[2016-08-26] MEDS ORDERED: POLYETHYLENE GLYCOL 3350 17 GM/Dose PACKET PO ONE (16:58)
[2016-08-26] MEDS ORDERED: POLYETHYLENE GLYCOL 3350 17 GM/Dose PACKET PEG ONE (16:58)
[2016-08-26] MEDS: Docusate-Senna 50 mg-8.6 mg Tab PO SCH (21:58)
[2016-08-26] MEDS: Latanoprost 2.5 ml Opht Soln OD SCH (21:59)
[2016-08-27] MEDS: Albuterol-Ipratrop 3 mg / 0.5 (3 ml) UD INH SCH ×4 (01:52→20:20)
[2016-08-27] MEDS: Acetylcysteine 20% Inhal Soln (4ml) INH SCH ×4 (01:52→20:20)
[2016-08-27 07:28] LABS: BASO # 0.1 K/uL (0.0-0.2); BASO % 0.8 % (0.0-2.0); EOS # 0.5 K/uL (0.0-0.7); EOS % 6.4 % (0.0-4.0); HEMATOCRIT 32.4 % (35.0-51.0); LYMPH # 2.5 K/uL (1.0-4.3); LYMPH % 30.1 % (20.0-40.0); MEAN CELL VOLUME 81.1 fL (80.0-94.0); MEAN CORPUSCULAR HEMOGLOBIN 26.2 pg (27.0-31.0); MEAN CORPUSCULAR HGB CONC 32.3 g/dL (33.0-37.0); MEAN PLATELET VOLUME 9.4 fL (7.2-11.7); MONO # 0.9 K/uL (0.0-0.8); MONO % 10.4 % (0.0-10.0); NRBC % 0.1 % (0.0-2.0); RED CELL DISTRIBUTION WIDTH 14.7 % (11.5-14.5); WHITE BLOOD COUNT 8.4 K/uL (4.8-10.8)
[2016-08-27 07:32] LABS: CHLORIDE 104 mmol/L (98-107); SODIUM 138 mmol/L (132-148)
[2016-08-27 07:33] LABS: POTASSIUM 3.9 mmol/L (3.6-5.2)
[2016-08-27 07:35] LABS: ALB/GLOB RATIO 1.1 (1.0-2.1); ALKALINE PHOSPHATASE 104 U/L (38-126); ALT/SGPT 58 U/L (21-72); AST/SGOT 41 U/L (17-59); BILIRUBIN,TOTAL 0.7 mg/dL (0.2-1.3); BLOOD UREA NITROGEN 13 mg/dL (9-20); CARBON DIOXIDE 25 mmol/L (22-30); GFR AFRICAN-AMERICAN > 60; GLUCOSE,RANDOM 134 mg/dL (75-110)
[2016-08-27 07:36] LABS: CALCIUM 9.2 mg/dl (8.6-10.4)
[2016-08-27] MEDS ORDERED: POLYETHYLENE GLYCOL 3350 17 GM/Dose PACKET PO ONE (10:00)
[2016-08-27] MEDS: Divalproex 500 mg ER Tab PO SCH (10:43)
[2016-08-27] MEDS: Fluticasone Nasal 50 mcg/Spray NAS SCH ×2 (11:00→18:00)
[2016-08-27] MEDS: [UNRECOGNIZED DRUG - OTHER] OS SCH ×2 (11:00→18:02)
--- NOTE | 2016-08-27 14:34 | CP.PCM.PN ---
<Marleni Vidal - Last Filed: 08/27/16 19:10> Subjective - Date & Time of Evaluation Date of Evaluation: 08/27/16 Time of Evaluation: 07:40 - Subjective Subjective: PGY 1 Med Note- Dr. Castellon's service Patient seen and examined at bedside. Patient is in no acute distress. Patient able to understand his family at bedside speaking to him in Lithuanian. He is on isosource via peg. Patient was able to ambulate with the roller walker, mild postural sway, requiring frequent rest periods. Objective - Vital Signs/Intake and Output Vital Signs (last 24 hours): Temp Pulse Resp BP Pulse Ox 97.9 F 78 18 148/77 99 08/27/16 07:05 08/27/16 13:08 08/27/16 07:05 08/27/16 07:05 08/27/16 13:08 Intake and Output: 08/27/16 08/27/16 06:59 18:59 Intake Total 1200 Output Total 705 Balance 495 - Medications Medications: Current Medications Acetylcysteine (Acetylcysteine 20%) 4 ml INH Q6H [facility] Last Admin: 08/27/16 08:49 Dose: 4 ml Albuterol/Ipratropium (Duoneb 3 Mg/0.5 Mg (3 Ml) Ud) 3 ml INH RQ6 [facility] Last Admin: 08/27/16 08:49 Dose: 3 ml Amantadine HCl (Amantadine 100 Mg Cap) 100 mg PO BID [facility] Last Admin: 08/27/16 10:43 Dose: 100 mg Divalproex Sodium (Depakote Er) 500 mg PO DAILY [facility] Last Admin: 08/27/16 10:43 Dose: 500 mg Famotidine (Pepcid) 20 mg PO DAILY [facility] Last Admin: 08/27/16 10:43 Dose: 20 mg Fluticasone Propionate (Flonase) 1 spr BO BID [facility] Last Admin: 08/27/16 11:00 Dose: 1 spray Home Med (Patient's Own Drops) 1 drop OS BID [facility] Stop: 09/19/16 18:01 Last Admin: 08/27/16 11:00 Dose: 1 drop Imipenem/Cilastatin Sodium 500 (mg/ Sodium Chloride) 100 mls @ 100 mls/hr IVPB Q6H [facility] Last Admin: 08/27/16 12:35 Dose: 100 mls/hr Latanoprost (Xalatan Opht) 0 ml OD HS [facility] Stop: 09/05/16 18:00 Last Admin: 08/26/16 21:59 Dose: Not Given Lisinopril (Zestril) 10 mg PO DAILY [facility] Last Admin: 08/27/16 11:00 Dose: 10 mg Lorazepam (Ativan) 0.5 mg IVP Q6H PRN PRN Reason: Anxiety Last Admin: 08/23/16 22:40 Dose: 0.5 mg Senna/Docusate Sodium (Senokot S 50 Mg-8.6 Mg) 1 tab PO HS [facility] Last Admin: 08/26/16 21:58 Dose: Not Given Timolol Maleate (Timoptic 0.5% Ophth Soln) 0 drop OD DAILY [facility] Last Admin: 08/27/16 11:00 Dose: 1 drop - Labs Labs: 08/27/16 06:54 08/27/16 06:54 PT 12.4 SECONDS (9.7-12.2) H 08/18/16 06:26 INR 1.1 08/18/16 06:26 APTT 29 SECONDS (21-34) 08/18/16 06:26 - Constitutional Appears: Non-toxic, No Acute Distress - Head Exam Head Exam: NORMAL INSPECTION, NORMOCEPHALIC - Eye Exam Eye Exam: EOMI, PERRL. absent: Normal appearance (L eye estropia) - ENT Exam ENT Exam: Mucous Membranes Moist, Normal Exam - Respiratory Exam Respiratory Exam: Clear to Ausculation Bilateral, NORMAL BREATHING PATTERN - Cardiovascular Exam Cardiovascular Exam: REGULAR RHYTHM, +S1, +S2 - GI/Abdominal Exam GI & Abdominal Exam: Soft, Normal Bowel Sounds - Neurological Exam Neurological Exam: Alert, Awake Neuro motor strength exam: Left Upper Extremity: 4, Right Upper Extremity: 4, Left Lower Extremity: 4, Right Lower Extremity: 4 Assessment and Plan (1) Cerebral hemorrhage Assessment & Plan: Neurosurgery on board- Dr. Rose/Yuan- help appreciated * s/p Kyler hole and evacuation of subdural hemorrhage with Dang and David drain 08/01/16 * s/p right frontotemporal craniotomy; evacuation of acute subdural drain present * Removal of drain on 08/03/16 * Per neurosurgery, prefers patient off anticoagulation Neurology on board- Dr. Bonner- help appreciated * Patient is stable and participating with PT/OT. * Monitor the blood pressure. * Continue Depakote 500 mg po qd for seizure ppx, headache, and mood stabilization. * Continue Amantidine. No methylphenidate as per Dr. Bonner. 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 No midline shaft, herniation or hydrocephalus. * Head CT (08/13/16): redemonstrated to small to medium sized hypodense of residual right sided subdural hematoma. Minmindal right to left midline shift. Previously noted small amount of subdural air on prior study has undegone further resoprtion. Persistent mild subjacent mass effect with compression of cerebral sulci and mild compression of right lateral ventricle. No evidence of obstructive hydrocephalus. Status: Acute (2) Acute respiratory failure Assessment & Plan: S/p trach 08/15/16 Plan is to switch to a fenestrated trach Consider Pulm consult Continue Duonebs RQ6 [facility] Continue Acetylcysteine 4 ml INH Q6h [facility] Continue Flonase 1 spr Bo BID General Surgery (Dr. Levin) on board Cont to monitor Status: Acute (3) Hypertension Assessment & Plan: Continue Lisinopril 10 mg PO Daily Continue to monitor. Status: Chronic (4) Diabetes Assessment & Plan: 08/01/16- Hg A1c-5.9 Accuchecks Q6 hours ISS subq Q6H On tube feedings Status: Chronic (5) Cough Assessment & Plan: Rule out pneumonia Sputum culture 08/22/: normal oral val Cxray 08/27: No significant change. Right kate diaphragmatic pleural calcification or right hepatic dome calcification, appearance unchanged. Trach in place. Biapical pleural thickening with upper lobe granulomatous changes. Hyperinflation suggestive for COPD and or emphysematous changes. Status: Acute (6) ESBL (extended spectrum beta-lactamase) producing bacteria infection Assessment & Plan: Blood culture negative 08/12, urine culture negative 08/17 * white count trending down: 8.4 * Continue Primaxin (day 9) Status: Acute (7) Prophylactic measure Assessment & Plan: * Neurosurgery prefers patient off anticoagulation per prior discussion with ICU * Pepcid 20mg PO daily * No benzos * Seizure prophylaxis * Trach in place * PEG tube in place Status: Acute <Josiah Castellon - Last Filed: 08/28/16 07:31> Objective - Vital Signs/Intake and Output Vital Signs (last 24 hours): Temp Pulse Resp BP Pulse Ox 97.8 F 77 20 125/82 97 08/27/16 23:29 08/27/16 23:29 08/27/16 23:29 08/27/16 23:29 08/27/16 23:29 Intake and Output: 08/28/16 08/28/16 06:59 18:59 Intake Total 700 Output Total 250 Balance 450 - Medications Medications: Current Medications Acetylcysteine (Acetylcysteine 20%) 4 ml INH Q6H [facility] Last Admin: 08/28/16 02:35 Dose: 4 ml Albuterol/Ipratropium (Duoneb 3 Mg/0.5 Mg (3 Ml) Ud) 3 ml INH RQ6 [facility] Last Admin: 08/28/16 02:35 Dose: 3 ml Amantadine HCl (Amantadine 100 Mg Cap) 100 mg GT BID [facility] Last Admin: 08/27/16 18:23 Dose: 100 mg Famotidine (Pepcid) 20 mg PO DAILY [facility] Last Admin: 08/27/16 10:43 Dose: 20 mg Fluticasone Propionate (Flonase) 1 spr BO BID [facility] Last Admin: 08/27/16 18:00 Dose: 1 spray Home Med (Patient's Own Drops) 1 drop OS BID [facility] Stop: 09/19/16 18:01 Last Admin: 08/27/16 18:02 Dose: 1 drop Imipenem/Cilastatin Sodium 500 (mg/ Sodium Chloride) 100 mls @ 100 mls/hr IVPB Q6H [facility] Last Admin: 08/28/16 05:58 Dose: 100 mls/hr Latanoprost (Xalatan Opht) 0 ml OD HS [facility] Stop: 09/05/16 18:00 Last Admin: 08/27/16 21:59 Dose: 2.5 ml Lisinopril (Zestril) 10 mg PO DAILY [facility] Last Admin: 08/27/16 11:00 Dose: 10 mg Lorazepam (Ativan) 0.5 mg IVP Q6H PRN PRN Reason: Anxiety Last Admin: 08/27/16 23:20 Dose: 0.5 mg Senna/Docusate Sodium (Senokot S 50 Mg-8.6 Mg) 1 tab PO HS [facility] Last Admin: 08/27/16 21:59 Dose: 1 tab Timolol Maleate (Timoptic 0.5% Ophth Soln) 0 drop OD DAILY [facility] Last Admin: 08/27/16 11:00 Dose: 1 drop Valproate Sodium (Depakene Oral Soln) 250 mg PO BID [facility] - Labs Labs: 08/27/16 06:54 08/27/16 06:54 PT 12.4 SECONDS (9.7-12.2) H 08/18/16 06:26 INR 1.1 08/18/16 06:26 APTT 29 SECONDS (21-34) 08/18/16 06:26 Attending/Attestation - Attestation I have personally seen and examined this patient.: Yes I have fully participated in the care of the patient.: Yes I have reviewed all pertinent clinical information, including history, physical exam and plan: Yes Notes (Text): 08/28/16 07:29 Patient was seen and examined at bedside with the resident This is a late computer entry Patient participated in physical therapy today. He was able to ambulate with a walker. PT evaluation noted and appreciated Continue current medical management We will request pulmonary evaluation for the patient to ultimately consider decannulation Continue local care of the tracheostomy and PEG site I discussed the plan of care with the resident and agree with the above history and physical and assessment/plan by the resident.
--- NOTE | 2016-08-27 15:47 | RAD ---
Chest x-ray single frontal view History: Cough. Comparison: 08/21/2016 Findings: Again identified is apparent right kate diaphragmatic pleural calcification or right hepatic dome calcification, appearance unchanged. Mammilated right hemidiaphragm. Tracheostomy tube in place. Biapical pleural thickening with upper lobe granulomatous changes. Right central venous catheter with tip extending to the distal right SVC. Hyperinflation suggestive for COPD and or emphysematous changes. Heart size within normal limits. Degenerative changes in the spine and shoulders. Impression: No significant interval change.
--- NOTE | 2016-08-27 17:44 | CP.PCM.PN ---
Subjective - Date & Time of Evaluation Date of Evaluation: 08/27/16 Time of Evaluation: 17:38 - Subjective Subjective: Mr. Renee Lopez was seen and examined today at bedside. He was interactive and asking to eat food and drink tea. He and his family had questions about when the uriel from his surgery that was performed on 2016 would be removed. I said that I would have to defer to neurosurgery. There were no other complaints expressed. Objective - Vital Signs/Intake and Output Vital Signs (last 24 hours): Temp Pulse Resp BP Pulse Ox 98.2 F 72 18 122/78 100 08/27/16 15:53 08/27/16 15:53 08/27/16 15:53 08/27/16 15:53 08/27/16 15:53 Intake and Output: 08/27/16 08/27/16 06:59 18:59 Intake Total 1200 Output Total 705 Balance 495 - Medications Medications: Current Medications Acetylcysteine (Acetylcysteine 20%) 4 ml INH Q6H [facility] Last Admin: 08/27/16 14:54 Dose: 4 ml Albuterol/Ipratropium (Duoneb 3 Mg/0.5 Mg (3 Ml) Ud) 3 ml INH RQ6 [facility] Last Admin: 08/27/16 14:54 Dose: 3 ml Amantadine HCl (Amantadine 100 Mg Cap) 100 mg PO BID [facility] Last Admin: 08/27/16 10:43 Dose: 100 mg Divalproex Sodium (Depakote Er) 500 mg PO DAILY [facility] Last Admin: 08/27/16 10:43 Dose: 500 mg Famotidine (Pepcid) 20 mg PO DAILY [facility] Last Admin: 08/27/16 10:43 Dose: 20 mg Fluticasone Propionate (Flonase) 1 spr BO BID [facility] Last Admin: 08/27/16 11:00 Dose: 1 spray Home Med (Patient's Own Drops) 1 drop OS BID [facility] Stop: 09/19/16 18:01 Last Admin: 08/27/16 11:00 Dose: 1 drop Imipenem/Cilastatin Sodium 500 (mg/ Sodium Chloride) 100 mls @ 100 mls/hr IVPB Q6H [facility] Last Admin: 08/27/16 12:35 Dose: 100 mls/hr Latanoprost (Xalatan Opht) 0 ml OD HS [facility] Stop: 09/05/16 18:00 Last Admin: 08/26/16 21:59 Dose: Not Given Lisinopril (Zestril) 10 mg PO DAILY [facility] Last Admin: 08/27/16 11:00 Dose: 10 mg Lorazepam (Ativan) 0.5 mg IVP Q6H PRN PRN Reason: Anxiety Last Admin: 08/23/16 22:40 Dose: 0.5 mg Senna/Docusate Sodium (Senokot S 50 Mg-8.6 Mg) 1 tab PO HS [facility] Last Admin: 08/26/16 21:58 Dose: Not Given Timolol Maleate (Timoptic 0.5% Ophth Soln) 0 drop OD DAILY [facility] Last Admin: 08/27/16 11:00 Dose: 1 drop - Labs Labs: 08/27/16 06:54 08/27/16 06:54 PT 12.4 SECONDS (9.7-12.2) H 08/18/16 06:26 INR 1.1 08/18/16 06:26 APTT 29 SECONDS (21-34) 08/18/16 06:26 - Cardiovascular Exam Cardiovascular Exam: REGULAR RHYTHM, +S1, +S2. absent: Murmur - GI/Abdominal Exam GI & Abdominal Exam: Soft, Normal Bowel Sounds. absent: Tenderness - Neurological Exam Neurological Exam: Alert, Awake, CN II-XII Intact, Oriented x3, Reflexes Normal Neuro motor strength exam: Left Upper Extremity: 4, Right Upper Extremity: 4, Left Lower Extremity: 4, Right Lower Extremity: 4 Additional comments: Able to sit up without assistance and was able to stand. Full gait testing was not completed, but he was able to ambulate with PT. Assessment and Plan (1) Subdural hemorrhage following injury Assessment & Plan: Clinically improved. I recommend obtaining a speech/swallow eval. Continue current medications, DVT Px, PT/OT. Discuss with neurosurgery the removal of uriel. Status: Acute
[2016-08-27] MEDS: Docusate-Senna 50 mg-8.6 mg Tab PO SCH (21:59)
[2016-08-27] MEDS: Latanoprost 2.5 ml Opht Soln OD SCH (21:59)
[2016-08-28] MEDS: Albuterol-Ipratrop 3 mg / 0.5 (3 ml) UD INH SCH ×4 (02:35→19:50)
[2016-08-28] MEDS: Acetylcysteine 20% Inhal Soln (4ml) INH SCH ×4 (02:35→19:50)
--- NOTE | 2016-08-28 06:56 | CP.PCM.PN ---
Objective - Vital Signs/Intake and Output Vital Signs (last 24 hours): Temp Pulse Resp BP Pulse Ox 97.8 F 77 20 125/82 97 08/27/16 23:29 08/27/16 23:29 08/27/16 23:29 08/27/16 23:29 08/27/16 23:29 - Medications Medications: Current Medications Acetylcysteine (Acetylcysteine 20%) 4 ml INH Q6H [facility] Last Admin: 08/28/16 02:35 Dose: 4 ml Albuterol/Ipratropium (Duoneb 3 Mg/0.5 Mg (3 Ml) Ud) 3 ml INH RQ6 [facility] Last Admin: 08/28/16 02:35 Dose: 3 ml Amantadine HCl (Amantadine 100 Mg Cap) 100 mg GT BID [facility] Last Admin: 08/27/16 18:23 Dose: 100 mg Famotidine (Pepcid) 20 mg PO DAILY [facility] Last Admin: 08/27/16 10:43 Dose: 20 mg Fluticasone Propionate (Flonase) 1 spr BO BID [facility] Last Admin: 08/27/16 18:00 Dose: 1 spray Home Med (Patient's Own Drops) 1 drop OS BID [facility] Stop: 09/19/16 18:01 Last Admin: 08/27/16 18:02 Dose: 1 drop Imipenem/Cilastatin Sodium 500 (mg/ Sodium Chloride) 100 mls @ 100 mls/hr IVPB Q6H [facility] Last Admin: 08/28/16 05:58 Dose: 100 mls/hr Latanoprost (Xalatan Opht) 0 ml OD [facility] Stop: 09/05/16 18:00 Last Admin: 08/27/16 21:59 Dose: 2.5 ml Lisinopril (Zestril) 10 mg PO DAILY [facility] Last Admin: 08/27/16 11:00 Dose: 10 mg Lorazepam (Ativan) 0.5 mg IVP Q6H PRN PRN Reason: Anxiety Last Admin: 08/27/16 23:20 Dose: 0.5 mg Senna/Docusate Sodium (Senokot S 50 Mg-8.6 Mg) 1 tab PO HS [facility] Last Admin: 08/27/16 21:59 Dose: 1 tab Timolol Maleate (Timoptic 0.5% Ophth Soln) 0 drop OD DAILY [facility] Last Admin: 08/27/16 11:00 Dose: 1 drop Valproate Sodium (Depakene Oral Soln) 250 mg PO BID [facility] - Labs Labs: 08/27/16 06:54 08/27/16 06:54 PT 12.4 SECONDS (9.7-12.2) H 08/18/16 06:26 INR 1.1 08/18/16 06:26 APTT 29 SECONDS (21-34) 08/18/16 06:26
[2016-08-28 08:40] LABS: BASO % 0.6 % (0.0-2.0); EOS # 0.4 K/uL (0.0-0.7); EOS % 6.1 % (0.0-4.0); HEMATOCRIT 31.3 % (35.0-51.0); LYMPH # 2.4 K/uL (1.0-4.3); LYMPH % 34.7 % (20.0-40.0); MEAN CELL VOLUME 80.4 fL (80.0-94.0); MEAN CORPUSCULAR HEMOGLOBIN 26.2 pg (27.0-31.0); MEAN CORPUSCULAR HGB CONC 32.6 g/dL (33.0-37.0); MEAN PLATELET VOLUME 9.7 fL (7.2-11.7); MONO # 0.7 K/uL (0.0-0.8); MONO % 10.5 % (0.0-10.0); RED CELL DISTRIBUTION WIDTH 14.7 % (11.5-14.5)
[2016-08-28 08:44] LABS: CHLORIDE 100 mmol/L (98-107)
[2016-08-28 08:45] LABS: SODIUM 137 mmol/L (132-148)
[2016-08-28 08:47] LABS: ALKALINE PHOSPHATASE 99 U/L (38-126); ALT/SGPT 60 U/L (21-72); AST/SGOT 36 U/L (17-59); BILIRUBIN,TOTAL 0.5 mg/dL (0.2-1.3); BLOOD UREA NITROGEN 15 mg/dL (9-20); CARBON DIOXIDE 27 mmol/L (22-30); GFR AFRICAN-AMERICAN > 60; GLUCOSE,RANDOM 135 mg/dL (75-110); TOTAL PROTEIN 6.8 g/dL (6.3-8.3)
[2016-08-28 08:48] LABS: PHOSPHOROUS 4.6 mg/dL (2.5-4.5)
--- NOTE | 2016-08-28 09:56 | CP.PCM.PN ---
<Marleni Vidal - Last Filed: 08/28/16 19:21> Subjective - Date & Time of Evaluation Date of Evaluation: 08/28/16 Time of Evaluation: 07:15 - Subjective Subjective: PGY 1 Med Note- Dr. Castellon's service Patient seen and examined at bedside. Patient is in no acute distress. Patient is alert and oriented. Objective - Vital Signs/Intake and Output Vital Signs (last 24 hours): Temp Pulse Resp BP Pulse Ox 97.8 F 77 20 125/82 97 08/27/16 23:29 08/27/16 23:29 08/27/16 23:29 08/27/16 23:29 08/27/16 23:29 Intake and Output: 08/28/16 08/28/16 06:59 18:59 Intake Total 700 Output Total 250 Balance 450 - Medications Medications: Current Medications Acetylcysteine (Acetylcysteine 20%) 4 ml INH Q6H [facility] Last Admin: 08/28/16 07:40 Dose: 4 ml Albuterol/Ipratropium (Duoneb 3 Mg/0.5 Mg (3 Ml) Ud) 3 ml INH RQ6 [facility] Last Admin: 08/28/16 07:40 Dose: 3 ml Amantadine HCl (Amantadine 100 Mg Cap) 100 mg GT BID [facility] Last Admin: 08/27/16 18:23 Dose: 100 mg Famotidine (Pepcid) 20 mg PO DAILY [facility] Last Admin: 08/27/16 10:43 Dose: 20 mg Fluticasone Propionate (Flonase) 1 spr BO BID [facility] Last Admin: 08/27/16 18:00 Dose: 1 spray Home Med (Patient's Own Drops) 1 drop OS BID [facility] Stop: 09/19/16 18:01 Last Admin: 08/27/16 18:02 Dose: 1 drop Imipenem/Cilastatin Sodium 500 (mg/ Sodium Chloride) 100 mls @ 100 mls/hr IVPB Q6H [facility] Last Admin: 08/28/16 05:58 Dose: 100 mls/hr Latanoprost (Xalatan Opht) 0 ml OD HS [facility] Stop: 09/05/16 18:00 Last Admin: 08/27/16 21:59 Dose: 2.5 ml Lisinopril (Zestril) 10 mg PO DAILY [facility] Last Admin: 08/27/16 11:00 Dose: 10 mg Lorazepam (Ativan) 0.5 mg IVP Q6H PRN PRN Reason: Anxiety Last Admin: 08/27/16 23:20 Dose: 0.5 mg Senna/Docusate Sodium (Senokot S 50 Mg-8.6 Mg) 1 tab PO HS [facility] Last Admin: 08/27/16 21:59 Dose: 1 tab Timolol Maleate (Timoptic 0.5% Ophth Soln) 0 drop OD DAILY [facility] Last Admin: 08/27/16 11:00 Dose: 1 drop Valproate Sodium (Depakene Oral Soln) 250 mg PO BID [facility] - Labs Labs: 08/28/16 08:25 08/28/16 08:25 PT 12.4 SECONDS (9.7-12.2) H 08/18/16 06:26 INR 1.1 08/18/16 06:26 APTT 29 SECONDS (21-34) 08/18/16 06:26 - Constitutional Appears: Non-toxic, No Acute Distress - Head Exam Head Exam: ATRAUMATIC, NORMAL INSPECTION, NORMOCEPHALIC Additional comments: uriel intact from neurosurgery - Eye Exam Eye Exam: EOMI, PERRL. absent: Normal appearance (left eye estropia) - ENT Exam ENT Exam: Mucous Membranes Moist, Normal Exam - Neck Exam Neck Exam: Full ROM, Normal Inspection. absent: Lymphadenopathy - Respiratory Exam Respiratory Exam: Clear to Ausculation Bilateral, NORMAL BREATHING PATTERN. absent: Rales, Rhonchi, Wheezes, Stridor - Cardiovascular Exam Cardiovascular Exam: REGULAR RHYTHM, +S1, +S2. absent: Gallop, Rubs, Murmur - GI/Abdominal Exam GI & Abdominal Exam: Soft, Normal Bowel Sounds. absent: Guarding, Tenderness - Extremities Exam Extremities Exam: Normal Inspection - Back Exam Back Exam: NORMAL INSPECTION - Neurological Exam Neurological Exam: Alert, Awake, Oriented x3 Neuro motor strength exam: Left Upper Extremity: 4, Right Upper Extremity: 4, Left Lower Extremity: 4, Right Lower Extremity: 4 - Skin Skin Exam: Normal Color Assessment and Plan (1) Cerebral hemorrhage Assessment & Plan: Neurosurgery on board- Dr. Rose/Yuan- help appreciated * s/p Harman hole and evacuation of subdural hemorrhage with Dang and David drain 08/01/16 * s/p right frontotemporal craniotomy; evacuation of acute subdural drain present * Removal of drain on 08/03/16 Neurology on board- Dr. Bonenr- help appreciated * Patient is stable and participating with PT/OT. * Monitor the blood pressure. * Continue Depakote 500 mg po qd for seizure ppx, headache, and mood stabilization. * Continue Amantidine. No methylphenidate as per Dr. Bonner. 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 No midline shaft, herniation or hydrocephalus. * Head CT (08/13/16): redemonstrated to small to medium sized hypodense of residual right sided subdural hematoma. Minmindal right to left midline shift. Previously noted small amount of subdural air on prior study has undegone further resoprtion. Persistent mild subjacent mass effect with compression of cerebral sulci and mild compression of right lateral ventricle. No evidence of obstructive hydrocephalus. Status: Acute (2) Acute respiratory failure Assessment & Plan: S/p trach 08/15/16 Pulm consulted- Dr. Kumari, help appreciated. Plan to switch to fenestrated trach. Continue Duonebs RQ6 [facility] Continue Acetylcysteine 4 ml INH Q6h [facility] Continue Flonase 1 spr Bo BID General Surgery (Dr. Levin) on board Cont to monitor Status: Acute (3) Hypertension Assessment & Plan: Continue Lisinopril 10 mg PO Daily. Continue to monitor. Status: Chronic (4) Diabetes Assessment & Plan: 08/01/16- Hg A1c-5.9 Accuchecks Q6 hours ISS subq Q6H On tube feedings. Status: Chronic (5) ESBL (extended spectrum beta-lactamase) producing bacteria infection Assessment & Plan: Blood culture negative 08/12, urine culture negative 08/17 * white count trending down: 8.4 * Primaxin stopped, 10 days given. Status: Acute (6) Cough Assessment & Plan: Rule out pneumonia Sputum culture 08/22/: normal oral val Cxray 08/27: No significant change. Right kate diaphragmatic pleural calcification or right hepatic dome calcification, appearance unchanged. Trach in place. Biapical pleural thickening with upper lobe granulomatous changes. Hyperinflation suggestive for COPD and or emphysematous changes. Status: Resolved (7) Prophylactic measure Assessment & Plan: * Restarting Lovenox 40 mg daily as per neurosurgery * Pepcid 20mg PO daily * No benzos * Seizure prophylaxis * Trach in place * PEG tube in place Status: Acute <Connie Garner V - Last Filed: 08/29/16 00:20> Objective - Vital Signs/Intake and Output Vital Signs (last 24 hours): Temp Pulse Resp BP Pulse Ox 97.3 F L 82 20 125/83 97 08/28/16 15:30 08/28/16 15:30 08/28/16 15:30 08/28/16 15:30 08/28/16 15:30 - Medications Medications: Current Medications Acetylcysteine (Acetylcysteine 20%) 4 ml INH Q6H [facility] Last Admin: 08/28/16 19:50 Dose: 4 ml Albuterol/Ipratropium (Duoneb 3 Mg/0.5 Mg (3 Ml) Ud) 3 ml INH RQ6 [facility] Last Admin: 08/28/16 19:50 Dose: 3 ml Amantadine HCl (Amantadine 100 Mg Cap) 100 mg GT BID [facility] Last Admin: 08/28/16 18:54 Dose: 100 mg Enoxaparin Sodium (Lovenox) 40 mg SC DAILY [facility] Famotidine (Pepcid) 20 mg PO DAILY [facility] Last Admin: 08/28/16 10:15 Dose: 20 mg Fluticasone Propionate (Flonase) 1 spr BO BID [facility] Last Admin: 08/28/16 18:53 Dose: 1 spray Home Med (Patient's Own Drops) 1 drop OS BID [facility] Stop: 09/19/16 18:01 Last Admin: 08/28/16 18:53 Dose: 1 drop Latanoprost (Xalatan Opht) 0 ml OD HS [facility] Stop: 09/05/16 18:00 Last Admin: 08/28/16 22:31 Dose: 1 ml Lisinopril (Zestril) 10 mg PO DAILY [facility] Last Admin: 08/28/16 10:15 Dose: 10 mg Lorazepam (Ativan) 0.5 mg IVP Q6H PRN PRN Reason: Anxiety Last Admin: 08/28/16 22:31 Dose: 0.5 mg Senna/Docusate Sodium (Senokot S 50 Mg-8.6 Mg) 1 tab PO HS [facility] Last Admin: 08/28/16 22:31 Dose: 1 tab Timolol Maleate (Timoptic 0.5% Ophth Soln) 0 drop OD DAILY [facility] Last Admin: 08/28/16 10:17 Dose: 1 drop Valproate Sodium (Depakene Oral Soln) 250 mg PO BID [facility] Last Admin: 08/28/16 18:53 Dose: 250 mg - Labs Labs: 08/28/16 08:25 08/28/16 08:25 PT 12.4 SECONDS (9.7-12.2) H 08/18/16 06:26 INR 1.1 08/18/16 06:26 APTT 29 SECONDS (21-34) 08/18/16 06:26 Assessment and Plan (1) Cerebral hemorrhage Status: Acute (2) Hypertension Status: Chronic (3) Diabetes Status: Chronic (4) Leukocytosis Status: Acute (5) Urinary tract infection Status: Acute (6) ESBL (extended spectrum beta-lactamase) producing bacteria infection Status: Acute (7) Prophylactic measure Status: Acute Attending/Attestation - Attestation I have personally seen and examined this patient.: Yes I have fully participated in the care of the patient.: Yes I have reviewed all pertinent clinical information, including history, physical exam and plan: Yes Notes (Text): Patient seen, examined and case discussed with day-time technical intern. Patient seen this morning; with his at bedside, and discussed with patient' s nephew: Ferny over the phone. Patient is awake, alert, speaks mainly Frisian but very communicative. Patient completed 10 days of IV Primaxin; will discontinue since urine culture shows no growth; white count has normalized and patient is afebrile. Consult: Dr Kumari (pulm talent solutions manager) for weaning protocol and to determine when patient is eligible for fenestrated trach; discussed with Dr. Kumari who is aware Swallow eval came to assess the patient; recommended for dysphagia diet; specifically suggest: Begin pureed diet with honey thick liquids. Pt must be sitting upright for all meals. If any signs of food/liquids coming through trache, feedings should be discontinued Resident spoke with neurosurgery who permitted DVT ppx and reported for the resident to remove the uriel? will follow-up with neurosurgery in the AM.
[2016-08-28] MEDS: Fluticasone Nasal 50 mcg/Spray NAS SCH ×2 (10:17→18:53)
[2016-08-28] MEDS: Valproic Acid 250 mg/5 ml UD Cup PO SCH ×2 (10:18→18:53)
[2016-08-28] MEDS: [UNRECOGNIZED DRUG - OTHER] OS SCH ×2 (10:19→18:53)
[2016-08-28] MEDS: Latanoprost 2.5 ml Opht Soln OD SCH (22:31)
[2016-08-28] MEDS: Docusate-Senna 50 mg-8.6 mg Tab PO SCH (22:31)
[2016-08-29] MEDS: Acetylcysteine 20% Inhal Soln (4ml) INH SCH ×4 (02:31→20:09)
[2016-08-29] MEDS: Albuterol-Ipratrop 3 mg / 0.5 (3 ml) UD INH SCH ×4 (02:31→20:09)
[2016-08-29 07:17] LABS: BASO # 0.1 K/uL (0.0-0.2); BASO % 1.5 % (0.0-2.0); EOS # 0.5 K/uL (0.0-0.7); EOS % 7.4 % (0.0-4.0); HEMATOCRIT 29.8 % (35.0-51.0); LYMPH # 2.2 K/uL (1.0-4.3); MEAN CELL VOLUME 81.2 fL (80.0-94.0); MEAN CORPUSCULAR HEMOGLOBIN 26.5 pg (27.0-31.0); MEAN CORPUSCULAR HGB CONC 32.6 g/dL (33.0-37.0); MEAN PLATELET VOLUME 9.7 fL (7.2-11.7); MONO # 0.7 K/uL (0.0-0.8); MONO % 10.4 % (0.0-10.0); RED CELL DISTRIBUTION WIDTH 14.5 % (11.5-14.5); WHITE BLOOD COUNT 6.5 K/uL (4.8-10.8)
[2016-08-29 07:42] LABS: CHLORIDE 104 mmol/L (98-107); POTASSIUM 3.7 mmol/L (3.6-5.2); SODIUM 138 mmol/L (132-148)
--- NOTE | 2016-08-29 07:42 | CP.PCM.PN ---
<Marleni Vidal - Last Filed: 08/29/16 16:43> Subjective - Date & Time of Evaluation Date of Evaluation: 08/29/16 Time of Evaluation: 07:00 - Subjective Subjective: PGY1- Dr. Garner's Service Patient seen and examined at bedside. Patient is in no acute distress. Patient is alert and oriented. Petient was decanulated and is sitting in chair comfortably. Patient is able to talk and has a dressing over previous site of trach tube which is clean and intact. Neurosurgery removed uriel and scalp is healing well. Patient has not had a bowel movement in 4 days. Objective - Vital Signs/Intake and Output Vital Signs (last 24 hours): Temp Pulse Resp BP Pulse Ox 98.3 F 82 20 123/73 98 08/28/16 23:00 08/28/16 23:00 08/28/16 23:00 08/28/16 23:00 08/28/16 23:00 Intake and Output: 08/29/16 08/29/16 06:59 18:59 Intake Total 500 Balance 500 - Medications Medications: Current Medications Acetylcysteine (Acetylcysteine 20%) 4 ml INH Q6H [facility] Last Admin: 08/29/16 07:40 Dose: 4 ml Albuterol/Ipratropium (Duoneb 3 Mg/0.5 Mg (3 Ml) Ud) 3 ml INH RQ6 [facility] Last Admin: 08/29/16 07:40 Dose: 3 ml Amantadine HCl (Amantadine 100 Mg Cap) 100 mg GT BID [facility] Last Admin: 08/28/16 18:54 Dose: 100 mg Famotidine (Pepcid) 20 mg PO DAILY [facility] Last Admin: 08/28/16 10:15 Dose: 20 mg Fluticasone Propionate (Flonase) 1 spr BO BID [facility] Last Admin: 08/28/16 18:53 Dose: 1 spray Home Med (Patient's Own Drops) 1 drop OS BID [facility] Stop: 09/19/16 18:01 Last Admin: 08/28/16 18:53 Dose: 1 drop Latanoprost (Xalatan Opht) 0 ml OD HS [facility] Stop: 09/05/16 18:00 Last Admin: 08/28/16 22:31 Dose: 1 ml Lisinopril (Zestril) 10 mg PO DAILY [facility] Last Admin: 08/28/16 10:15 Dose: 10 mg Lorazepam (Ativan) 0.5 mg IVP Q6H PRN PRN Reason: Anxiety Last Admin: 08/28/16 22:31 Dose: 0.5 mg Senna/Docusate Sodium (Senokot S 50 Mg-8.6 Mg) 1 tab PO HS [facility] Last Admin: 08/28/16 22:31 Dose: 1 tab Timolol Maleate (Timoptic 0.5% Ophth Soln) 0 drop OD DAILY [facility] Last Admin: 08/28/16 10:17 Dose: 1 drop Valproate Sodium (Depakene Oral Soln) 250 mg PO BID [facility] Last Admin: 08/28/16 18:53 Dose: 250 mg - Labs Labs: 08/29/16 07:05 08/28/16 08:25 PT 12.4 SECONDS (9.7-12.2) H 08/18/16 06:26 INR 1.1 08/18/16 06:26 APTT 29 SECONDS (21-34) 08/18/16 06:26 - Constitutional Appears: Well, Non-toxic, No Acute Distress - Head Exam Head Exam: ATRAUMATIC, NORMAL INSPECTION, NORMOCEPHALIC Additional comments: uriel removed from scalp, healing well - Eye Exam Eye Exam: EOMI, PERRL. absent: Normal appearance Pupil Exam: NORMAL ACCOMODATION, PERRL Additional comments: left eye estropia - ENT Exam ENT Exam: Mucous Membranes Moist, Normal Exam - Neck Exam Neck Exam: Full ROM, Normal Inspection. absent: Lymphadenopathy Additional comments: dressing over trach tube site is clean, intact. - Respiratory Exam Respiratory Exam: Clear to Ausculation Bilateral, NORMAL BREATHING PATTERN. absent: Rales, Rhonchi, Wheezes - Cardiovascular Exam Cardiovascular Exam: REGULAR RHYTHM, RRR, +S1, +S2. absent: Gallop, Rubs, Murmur - GI/Abdominal Exam GI & Abdominal Exam: Soft, Normal Bowel Sounds. absent: Firm, Guarding, Tenderness - Extremities Exam Extremities Exam: Full ROM, Normal Capillary Refill, Normal Inspection. absent : Joint Swelling, Pedal Edema - Back Exam Back Exam: NORMAL INSPECTION - Neurological Exam Neurological Exam: Alert, Awake, Oriented x3 Neuro motor strength exam: Left Upper Extremity: 4, Right Upper Extremity: 4, Left Lower Extremity: 4, Right Lower Extremity: 4 Assessment and Plan (1) Cerebral hemorrhage Assessment & Plan: Neurosurgery on board- Dr. Rose/Yuan- help appreciated * s/p [place] hole and evacuation of subdural hemorrhage with [place] and David drain 08/01/16 * s/p right frontotemporal craniotomy; evacuation of acute subdural drain present * Removal of drain on 08/03/16 * Removal of uriel 08/29/16 Neurology on board- Dr. Bonner- help appreciated * Patient is stable and participating with PT/OT. * Monitor the blood pressure. * Continue Depakote 500 mg po qd for seizure ppx, headache, and mood stabilization. * Continue Amantidine. No methylphenidate as per Dr. Bonner. 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 No midline shaft, herniation or hydrocephalus. * Head CT (08/13/16): redemonstrated to small to medium sized hypodense of residual right sided subdural hematoma. Minmindal right to left midline shift. Previously noted small amount of subdural air on prior study has undegone further resoprtion. Persistent mild subjacent mass effect with compression of cerebral sulci and mild compression of right lateral ventricle. No evidence of obstructive hydrocephalus. Status: Acute (2) Acute respiratory failure Assessment & Plan: S/P trach removal 08/29/16 (trach had been placed 08/15/16) * monitor healing site * tube feedings held, started on dysphagia diet (thin pureed) Pulm consulted- Dr. Kumari, help appreciated. Continue Duonebs RQ6 [facility] Continue Acetylcysteine 4 ml INH Q6h [facility] Continue Flonase 1 spr Bo BID General Surgery (Dr. Levin) on board Cont to monitor Status: Acute (3) Hypertension Assessment & Plan: Continue Lisinopril 10 mg PO Daily. Status: Chronic (4) Diabetes Assessment & Plan: 08/01/16- Hg A1c-5.9 Accuchecks Q6 hours ISS subq Q6H Status: Chronic (5) Constipation Assessment & Plan: Patient has not had BM in 4 days. Miralax ordered once. Colace 100 mg PO BID. Monitor for BM. Tube feeds held. Status: Acute (6) ESBL (extended spectrum beta-lactamase) producing bacteria infection Assessment & Plan: Blood culture negative 08/12, urine culture negative 08/17 * white count trending down: 8.4 * Primaxin stopped 08/28, 10 days given. Status: Acute (7) Cough Assessment & Plan: Rule out pneumonia Sputum culture 08/22/: normal oral val Cxray 08/27: No significant change. Right kate diaphragmatic pleural calcification or right hepatic dome calcification, appearance unchanged. Trach in place. Biapical pleural thickening with upper lobe granulomatous changes. Hyperinflation suggestive for COPD and or emphysematous changes. Status: Resolved (8) Prophylactic measure Assessment & Plan: Restarting Lovenox 40 mg daily as per neurosurgery, also okayed by neurology Pepcid 20mg PO daily No benzos Seizure prophylaxis PEG tube in place Status: Acute <Connie Garner V - Last Filed: 08/30/16 09:26> Objective - Vital Signs/Intake and Output Vital Signs (last 24 hours): Temp Pulse Resp BP Pulse Ox 97.8 F 73 20 113/74 100 08/29/16 15:38 08/29/16 15:38 08/29/16 15:38 08/29/16 15:38 08/29/16 15:38 Intake and Output: 08/29/16 08/29/16 06:59 18:59 Intake Total 500 Balance 500 - Medications Medications: Current Medications Acetylcysteine (Acetylcysteine 20%) 4 ml INH Q6H [facility] Last Admin: 08/29/16 13:33 Dose: 4 ml Albuterol/Ipratropium (Duoneb 3 Mg/0.5 Mg (3 Ml) Ud) 3 ml INH RQ6 [facility] Last Admin: 08/29/16 13:33 Dose: 3 ml Amantadine HCl (Amantadine 100 Mg Cap) 100 mg GT BID [facility] Last Admin: 08/29/16 17:35 Dose: 100 mg Docusate Sodium (Colace) 100 mg PO BID [facility] Last Admin: 08/29/16 17:35 Dose: 100 mg Enoxaparin Sodium (Lovenox) 40 mg SC DAILY [facility] Famotidine (Pepcid) 20 mg PO DAILY [facility] Last Admin: 08/29/16 10:19 Dose: 20 mg Fluticasone Propionate (Flonase) 1 spr BO BID [facility] Last Admin: 08/29/16 17:35 Dose: 1 spray Home Med (Patient's Own Drops) 1 drop OS BID [facility] Stop: 09/19/16 18:01 Last Admin: 08/29/16 17:35 Dose: 1 drop Latanoprost (Xalatan Opht) 0 ml OD HS [facility] Stop: 09/05/16 18:00 Last Admin: 08/28/16 22:31 Dose: 1 ml Lisinopril (Zestril) 10 mg PO DAILY [facility] Last Admin: 08/29/16 10:19 Dose: 10 mg Senna/Docusate Sodium (Senokot S 50 Mg-8.6 Mg) 1 tab PO HS [facility] Last Admin: 08/28/16 22:31 Dose: 1 tab Timolol Maleate (Timoptic 0.5% Ophth Soln) 0 drop OD DAILY [facility] Last Admin: 08/29/16 10:20 Dose: 1 drop Valproate Sodium (Depakene Oral Soln) 250 mg PO BID [facility] Last Admin: 08/29/16 17:34 Dose: 250 mg - Labs Labs: 08/29/16 07:05 08/29/16 07:05 PT 12.4 SECONDS (9.7-12.2) H 08/18/16 06:26 INR 1.1 08/18/16 06:26 APTT 29 SECONDS (21-34) 08/18/16 06:26 Assessment and Plan (1) Cerebral hemorrhage Status: Acute (2) Hypertension Status: Chronic (3) Diabetes Status: Chronic (4) Leukocytosis Status: Acute (5) Urinary tract infection Status: Acute (6) ESBL (extended spectrum beta-lactamase) producing bacteria infection Status: Acute (7) Prophylactic measure Status: Acute Attending/Attestation - Attestation I have personally seen and examined this patient.: Yes I have fully participated in the care of the patient.: Yes I have reviewed all pertinent clinical information, including history, physical exam and plan: Yes Notes (Text): This is late computer entry for 08/29/16. Patient seen, examined and case discussed with day-time resident. Discussed with pulmonary in the morning, patient appropriate for decannulation and saturating oxygen well. Patient is awake, alert, and speaking Georgian at bedside and sitting upright Discussed with swallow eval, dietary changes made to dysphagia diet and held tube feedings. Patient given Miralax X1 dose. Reports patient has not had a bowel movement in 4 days. Will monitor for bowel movement. Patient seen with neurology at bedside. Updates provided to his daughter, Nelia via telephone. patient to continue to work with physical and occupational therapy. Patient to restart DVT ppx, resident spoke with Dr. Gonzalez day prior and I confirmed with neurology today.
[2016-08-29 07:44] LABS: BILIRUBIN,TOTAL 0.5 mg/dL (0.2-1.3); CARBON DIOXIDE 25 mmol/L (22-30); GFR AFRICAN-AMERICAN > 60
[2016-08-29 07:45] LABS: ALKALINE PHOSPHATASE 87 U/L (38-126); ALT/SGPT 48 U/L (21-72); AST/SGOT 26 U/L (17-59); BLOOD UREA NITROGEN 15 mg/dL (9-20); CALCIUM 8.8 mg/dl (8.6-10.4); GLUCOSE,RANDOM 140 mg/dL (75-110); MAGNESIUM 2.1 mg/dL (1.6-2.3); PHOSPHOROUS 4.1 mg/dL (2.5-4.5); TOTAL PROTEIN 6.5 g/dL (6.3-8.3)
[2016-08-29] MEDS ORDERED: Enoxaparin 40 mg Syringe SC SCH (10:00)
[2016-08-29] MEDS: Valproic Acid 250 mg/5 ml UD Cup PO SCH ×2 (10:19→17:34)
[2016-08-29] MEDS: Fluticasone Nasal 50 mcg/Spray NAS SCH ×2 (10:20→17:35)
[2016-08-29] MEDS: [UNRECOGNIZED DRUG - OTHER] OS SCH ×2 (10:21→17:35)
[2016-08-29] MEDS ORDERED: POLYETHYLENE GLYCOL 3350 17 GM/Dose PACKET PO ONE (16:00)
--- NOTE | 2016-08-29 17:00 | CP.PCM.PN ---
Subjective - Date & Time of Evaluation Date of Evaluation: 08/29/16 Time of Evaluation: 14:00 - Subjective Subjective: Mr. Renee Lopez was seen and examined today at bedside. He was sitting up in his chair. His trach was removed and he was doing well, talking relatively normally and interactive. He had no complaints and there were no acute events overnight. I spoke with his and his daughter to discuss his current clinical status and prognosis. Objective - Vital Signs/Intake and Output Vital Signs (last 24 hours): Temp Pulse Resp BP Pulse Ox 97.8 F 73 20 113/74 100 08/29/16 15:38 08/29/16 15:38 08/29/16 15:38 08/29/16 15:38 08/29/16 15:38 Intake and Output: 08/29/16 08/29/16 06:59 18:59 Intake Total 500 Balance 500 - Medications Medications: Current Medications Acetylcysteine (Acetylcysteine 20%) 4 ml INH Q6H [facility] Last Admin: 08/29/16 13:33 Dose: 4 ml Albuterol/Ipratropium (Duoneb 3 Mg/0.5 Mg (3 Ml) Ud) 3 ml INH RQ6 [facility] Last Admin: 08/29/16 13:33 Dose: 3 ml Amantadine HCl (Amantadine 100 Mg Cap) 100 mg GT BID [facility] Last Admin: 08/29/16 10:20 Dose: 100 mg Docusate Sodium (Colace) 100 mg PO BID [facility] Enoxaparin Sodium (Lovenox) 40 mg SC DAILY [facility] Famotidine (Pepcid) 20 mg PO DAILY [facility] Last Admin: 08/29/16 10:19 Dose: 20 mg Fluticasone Propionate (Flonase) 1 spr BO BID [facility] Last Admin: 08/29/16 10:20 Dose: 1 spray Home Med (Patient's Own Drops) 1 drop OS BID [facility] Stop: 09/19/16 18:01 Last Admin: 08/29/16 10:21 Dose: 1 drop Latanoprost (Xalatan Opht) 0 ml OD HS [facility] Stop: 09/05/16 18:00 Last Admin: 08/28/16 22:31 Dose: 1 ml Lisinopril (Zestril) 10 mg PO DAILY [facility] Last Admin: 08/29/16 10:19 Dose: 10 mg Senna/Docusate Sodium (Senokot S 50 Mg-8.6 Mg) 1 tab PO HS [facility] Last Admin: 08/28/16 22:31 Dose: 1 tab Timolol Maleate (Timoptic 0.5% Ophth Soln) 0 drop OD DAILY [facility] Last Admin: 08/29/16 10:20 Dose: 1 drop Valproate Sodium (Depakene Oral Soln) 250 mg PO BID [facility] Last Admin: 08/29/16 10:19 Dose: 250 mg - Labs Labs: 08/29/16 07:05 08/29/16 07:05 PT 12.4 SECONDS (9.7-12.2) H 08/18/16 06:26 INR 1.1 08/18/16 06:26 APTT 29 SECONDS (21-34) 08/18/16 06:26 - Neurological Exam Neurological Exam: Alert, Awake, CN II-XII Intact, Oriented x3, Reflexes Normal Neuro motor strength exam: Left Upper Extremity: 4, Right Upper Extremity: 4, Left Lower Extremity: 4, Right Lower Extremity: 4 Assessment and Plan (1) Subdural hemorrhage following injury Assessment & Plan: Clinically improving. Continue PT/OT, DVT Px, AED medication and follow up with outpatient neurology. An EEG can be obtained in 3 months to evaluate for discontinuation of the Depakote. Continue amantadine at this time. Status: Acute
[2016-08-29] MEDS ORDERED: Acetaminophen 650mg/20.3ml solution UD PO ONE (19:45)
[2016-08-29] MEDS: Latanoprost 2.5 ml Opht Soln OD SCH (22:16)
[2016-08-29] MEDS: Docusate-Senna 50 mg-8.6 mg Tab PO SCH (22:20)
[2016-08-30] MEDS: Albuterol-Ipratrop 3 mg / 0.5 (3 ml) UD INH SCH ×4 (01:26→20:06)
[2016-08-30 07:09] LABS: BASO # 0.1 K/uL (0.0-0.2); BASO % 1.5 % (0.0-2.0); EOS # 0.6 K/uL (0.0-0.7); HEMATOCRIT 30.6 % (35.0-51.0); LYMPH # 2.4 K/uL (1.0-4.3); LYMPH % 31.7 % (20.0-40.0); MEAN CELL VOLUME 80.4 fL (80.0-94.0); MEAN CORPUSCULAR HEMOGLOBIN 26.4 pg (27.0-31.0); MEAN CORPUSCULAR HGB CONC 32.8 g/dL (33.0-37.0); MEAN PLATELET VOLUME 9.8 fL (7.2-11.7); MONO # 0.8 K/uL (0.0-0.8); MONO % 10.6 % (0.0-10.0); RED CELL DISTRIBUTION WIDTH 14.4 % (11.5-14.5); WHITE BLOOD COUNT 7.6 K/uL (4.8-10.8)
[2016-08-30] MEDS: Acetylcysteine 20% Inhal Soln (4ml) INH SCH ×3 (07:25→20:06)
[2016-08-30 07:46] LABS: CHLORIDE 103 mmol/L (98-107); POTASSIUM 3.9 mmol/L (3.6-5.2); SODIUM 138 mmol/L (132-148)
[2016-08-30 07:48] LABS: AST/SGOT 27 U/L (17-59); BILIRUBIN,TOTAL 0.7 mg/dL (0.2-1.3); CARBON DIOXIDE 26 mmol/L (22-30); GFR AFRICAN-AMERICAN > 60; TOTAL PROTEIN 6.6 g/dL (6.3-8.3)
[2016-08-30 07:49] LABS: ALKALINE PHOSPHATASE 88 U/L (38-126); ALT/SGPT 43 U/L (21-72); BLOOD UREA NITROGEN 14 mg/dL (9-20); GLUCOSE,RANDOM 96 mg/dL (75-110); MAGNESIUM 2.1 mg/dL (1.6-2.3); PHOSPHOROUS 4.1 mg/dL (2.5-4.5)
[2016-08-30] MEDS ORDERED: Enoxaparin 40 mg Syringe SC SCH (10:00)
[2016-08-30] MEDS: Fluticasone Nasal 50 mcg/Spray NAS SCH ×2 (10:52→17:34)
[2016-08-30] MEDS: Valproic Acid 250 mg/5 ml UD Cup PO SCH ×2 (10:52→17:33)
[2016-08-30] MEDS: [UNRECOGNIZED DRUG - OTHER] OS SCH ×2 (10:55→17:35)
--- NOTE | 2016-08-30 15:54 | CP.PCM.PN ---
<Marleni Vidal - Last Filed: 08/30/16 18:36> Subjective - Date & Time of Evaluation Date of Evaluation: 08/30/16 Time of Evaluation: 08:00 - Subjective Subjective: PGY-1 Dr. Garner's Service Patient seen and examined at bedside. Patient is in no acute distress. Patient is alert and oriented. Petient was decanulated and is sitting in chair comfortably. Patient is able to talk and has a dressing over previous site of trach tube which is clean and intact. Neurosurgery removed uriel and scalp is healing well. Patient has not had a bowel movement in 5 days. Objective - Vital Signs/Intake and Output Vital Signs (last 24 hours): Temp Pulse Resp BP Pulse Ox 98.1 F 79 20 118/78 100 08/30/16 15:41 08/30/16 15:41 08/30/16 15:41 08/30/16 15:41 08/30/16 15:41 Intake and Output: 08/30/16 08/30/16 06:59 18:59 Output Total 550 Balance -550 - Medications Medications: Current Medications Acetylcysteine (Acetylcysteine 20%) 4 ml INH Q6H [facility] Last Admin: 08/30/16 14:03 Dose: 4 ml Albuterol/Ipratropium (Duoneb 3 Mg/0.5 Mg (3 Ml) Ud) 3 ml INH RQ6 [facility] Last Admin: 08/30/16 14:03 Dose: 3 ml Amantadine HCl (Amantadine 100 Mg Cap) 100 mg GT BID [facility] Last Admin: 08/30/16 10:54 Dose: 100 mg Docusate Sodium (Colace) 100 mg PO BID [facility] Last Admin: 08/30/16 10:52 Dose: 100 mg Famotidine (Pepcid) 20 mg PO DAILY [facility] Last Admin: 08/30/16 10:52 Dose: 20 mg Fluticasone Propionate (Flonase) 1 spr BO BID [facility] Last Admin: 08/30/16 10:52 Dose: 1 spray Heparin Sodium (Porcine) (Heparin) 5,000 units SC Q12 [facility] Last Admin: 08/30/16 10:52 Dose: 5,000 units Home Med (Patient's Own Drops) 1 drop OS BID [facility] Stop: 09/19/16 18:01 Last Admin: 08/30/16 10:55 Dose: 1 drop Latanoprost (Xalatan Opht) 0 ml OD HS [facility] Stop: 09/05/16 18:00 Last Admin: 08/29/16 22:16 Dose: 2.5 ml Lisinopril (Zestril) 10 mg PO DAILY [facility] Last Admin: 08/30/16 10:52 Dose: 10 mg Lorazepam (Ativan) 0.5 mg IVP Q6H PRN PRN Reason: Anxiety Last Admin: 08/29/16 23:42 Dose: 0.5 mg Senna/Docusate Sodium (Senokot S 50 Mg-8.6 Mg) 1 tab PO HS [facility] Last Admin: 08/29/16 22:20 Dose: 1 tab Timolol Maleate (Timoptic 0.5% Ophth Soln) 0 drop OD DAILY [facility] Last Admin: 08/30/16 10:53 Dose: 1 drop Valproate Sodium (Depakene Oral Soln) 250 mg PO BID [facility] Last Admin: 08/30/16 10:52 Dose: 250 mg - Labs Labs: 08/30/16 07:02 08/30/16 07:02 PT 12.4 SECONDS (9.7-12.2) H 08/18/16 06:26 INR 1.1 08/18/16 06:26 APTT 29 SECONDS (21-34) 08/18/16 06:26 - Constitutional Appears: Well, Non-toxic, No Acute Distress - Head Exam Head Exam: ATRAUMATIC, NORMAL INSPECTION, NORMOCEPHALIC Additional comments: incision healing well, clean - Eye Exam Eye Exam: EOMI, PERRL. absent: Normal appearance (left eye estropia) - Neck Exam Neck Exam: Full ROM, Normal Inspection. absent: Lymphadenopathy - Respiratory Exam Respiratory Exam: Clear to Ausculation Bilateral, NORMAL BREATHING PATTERN. absent: Rhonchi - Cardiovascular Exam Cardiovascular Exam: REGULAR RHYTHM, RRR, +S1, +S2. absent: Murmur - GI/Abdominal Exam GI & Abdominal Exam: Soft, Normal Bowel Sounds. absent: Firm, Guarding, Tenderness - Extremities Exam Extremities Exam: Full ROM - Back Exam Back Exam: NORMAL INSPECTION - Neurological Exam Neurological Exam: Alert, Awake, Oriented x3 Neuro motor strength exam: Left Upper Extremity: 4, Right Upper Extremity: 4, Left Lower Extremity: 4, Right Lower Extremity: 4 - Psychiatric Exam Psychiatric exam: Normal Affect, Normal Mood - Skin Skin Exam: Normal Color Assessment and Plan (1) Cerebral hemorrhage Assessment & Plan: Neurosurgery on board- Dr. Rose/Yuan- help appreciated * s/p [place] hole and evacuation of subdural hemorrhage with [place] and David drain 08/01/16 * s/p right frontotemporal craniotomy; evacuation of acute subdural drain present * Removal of drain on 08/03/16 * Removal of uriel 08/29/16 Neurology on board- Dr. Bonner- help appreciated * Patient is stable and participating with PT/OT. * Monitor the blood pressure. * Continue Depakote 500 mg po qd for seizure ppx, headache, and mood stabilization. * Continue Amantidine. No methylphenidate as per Dr. Bonner. 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 No midline shaft, herniation or hydrocephalus. * Head CT (08/13/16): redemonstrated to small to medium sized hypodense of residual right sided subdural hematoma. Minmindal right to left midline shift. Previously noted small amount of subdural air on prior study has undegone further resoprtion. Persistent mild subjacent mass effect with compression of cerebral sulci and mild compression of right lateral ventricle. No evidence of obstructive hydrocephalus. Status: Acute (2) Acute respiratory failure Assessment & Plan: S/P trach removal 08/29/16 (trach had been placed 08/15/16) * monitor healing site * tube feedings restarted as a supplement to dysphagia diet (thin pureed) Pulm consulted- Dr. Kumari, help appreciated. Continue Duonebs RQ6 [facility] Continue Acetylcysteine 4 ml INH Q6h [facility] Continue Flonase 1 spr Bo BID General Surgery (Dr. Levin) on board Cont to monitor Status: Acute (3) Hypertension Assessment & Plan: Continue Lisinopril 10 mg PO Daily. Status: Chronic (4) Diabetes Assessment & Plan: 08/01/16- Hg A1c-5.9 Accuchecks Q6 hours ISS subq Q6H Status: Chronic (5) Constipation Assessment & Plan: Patient has not had BM in 5 days. Lactulose ordered. Monitor for BM. Status: Acute (6) ESBL (extended spectrum beta-lactamase) producing bacteria infection Assessment & Plan: Blood culture negative 08/12, urine culture negative 08/17 * white count trending down: 8.4 * Primaxin stopped 08/28, 10 days given. Status: Resolved (7) Cough Assessment & Plan: Rule out pneumonia Sputum culture 08/22/: normal oral val Cxray 08/27: No significant change. Right kate diaphragmatic pleural calcification or right hepatic dome calcification, appearance unchanged. Trach in place. Biapical pleural thickening with upper lobe granulomatous changes. Hyperinflation suggestive for COPD and or emphysematous changes. Status: Resolved (8) Prophylactic measure Assessment & Plan: Lovenox switched to Heparin 5000 u SC Q12 Pepcid 20mg PO daily No benzos Seizure prophylaxis PEG tube in place Status: Acute <Connie Garner V - Last Filed: 08/31/16 09:23> Objective - Vital Signs/Intake and Output Vital Signs (last 24 hours): Temp Pulse Resp BP Pulse Ox 97.4 F L 90 18 126/84 100 08/31/16 07:40 08/31/16 07:40 08/31/16 07:40 08/31/16 07:40 08/31/16 07:40 - Medications Medications: Current Medications Acetylcysteine (Acetylcysteine 20%) 4 ml INH Q6H [facility] Last Admin: 08/31/16 08:08 Dose: 4 ml Albuterol/Ipratropium (Duoneb 3 Mg/0.5 Mg (3 Ml) Ud) 3 ml INH RQ6 [facility] Last Admin: 08/31/16 08:08 Dose: 3 ml Amantadine HCl (Amantadine 100 Mg Cap) 100 mg GT BID [facility] Last Admin: 08/30/16 17:33 Dose: 100 mg Docusate Sodium (Colace) 100 mg PO BID [facility] Last Admin: 08/30/16 17:31 Dose: 100 mg Famotidine (Pepcid) 20 mg PO DAILY [facility] Last Admin: 08/30/16 10:52 Dose: 20 mg Fluticasone Propionate (Flonase) 1 spr BO BID [facility] Last Admin: 08/30/16 17:34 Dose: 1 spray Heparin Sodium (Porcine) (Heparin) 5,000 units SC Q12 [facility] Last Admin: 08/30/16 22:33 Dose: Not Given Home Med (Patient's Own Drops) 1 drop OS BID [facility] Stop: 09/19/16 18:01 Last Admin: 08/30/16 17:35 Dose: 1 drop Latanoprost (Xalatan Opht) 0 ml OD HS [facility] Stop: 09/05/16 18:00 Last Admin: 08/30/16 22:30 Dose: 2.5 ml Lisinopril (Zestril) 10 mg PO DAILY [facility] Last Admin: 08/30/16 10:52 Dose: 10 mg Lorazepam (Ativan) 0.5 mg IVP Q6H PRN PRN Reason: Anxiety Last Admin: 08/29/16 23:42 Dose: 0.5 mg Senna/Docusate Sodium (Senokot S 50 Mg-8.6 Mg) 1 tab PO HS [facility] Last Admin: 08/30/16 22:36 Dose: Not Given Timolol Maleate (Timoptic 0.5% Ophth Soln) 0 drop OD DAILY [facility] Last Admin: 08/30/16 10:53 Dose: 1 drop Valproate Sodium (Depakene Oral Soln) 250 mg PO BID [facility] Last Admin: 08/30/16 17:33 Dose: 250 mg - Labs Labs: 08/30/16 07:02 08/31/16 08:15 PT 12.4 SECONDS (9.7-12.2) H 08/18/16 06:26 INR 1.1 08/18/16 06:26 APTT 29 SECONDS (21-34) 08/18/16 06:26 Assessment and Plan (1) Cerebral hemorrhage Status: Acute (2) Hypertension Status: Chronic (3) Diabetes Status: Chronic (4) Leukocytosis Status: Acute (5) Urinary tract infection Status: Acute (6) ESBL (extended spectrum beta-lactamase) producing bacteria infection Status: Resolved (7) Prophylactic measure Status: Acute Attending/Attestation - Attestation I have personally seen and examined this patient.: Yes I have fully participated in the care of the patient.: Yes I have reviewed all pertinent clinical information, including history, physical exam and plan: Yes Notes (Text): This is late computer entry for 08/30/16. Patient seen, examined and case discussed with day-time resident. Patient is awake, alert, and speaking Upper Sorbian at bedside and sitting upright and conversing Patient restarted on tube feedings and encourage to eat. Patient ordered for Lactulose X1 dose. Reports patient has not had a bowel movement in 5 days. Ordered for abdomen xray. patient to continue to work with physical and occupational therapy.
[2016-08-30] MEDS: Latanoprost 2.5 ml Opht Soln OD SCH (22:30)
[2016-08-30] MEDS: Docusate-Senna 50 mg-8.6 mg Tab PO SCH ×2 (22:30→22:36)
[2016-08-31] MEDS: Acetylcysteine 20% Inhal Soln (4ml) INH SCH ×4 (01:27→19:39)
[2016-08-31] MEDS: Albuterol-Ipratrop 3 mg / 0.5 (3 ml) UD INH SCH ×4 (01:28→19:39)
[2016-08-31 08:34] LABS: CHLORIDE 98 mmol/L (98-107); POTASSIUM 3.8 mmol/L (3.6-5.2); SODIUM 135 mmol/L (132-148)
[2016-08-31 08:36] LABS: ALKALINE PHOSPHATASE 104 U/L (38-126); ALT/SGPT 60 U/L (21-72); AST/SGOT 39 U/L (17-59); BILIRUBIN,TOTAL 0.8 mg/dL (0.2-1.3); BLOOD UREA NITROGEN 13 mg/dL (9-20); CARBON DIOXIDE 26 mmol/L (22-30); GFR AFRICAN-AMERICAN > 60; TOTAL PROTEIN 7.3 g/dL (6.3-8.3)
[2016-08-31 08:37] LABS: GLUCOSE,RANDOM 101 mg/dL (75-110); MAGNESIUM 2.1 mg/dL (1.6-2.3); PHOSPHOROUS 4.2 mg/dL (2.5-4.5)
--- NOTE | 2016-08-31 11:13 | RAD ---
Abdomen two views History: Evaluate for obstruction. Comparison: None available. Findings: Peg tube in place. Severe fecal retention in the colon. Relative paucity of small bowel gas without evidence of gross obstruction. Impression: Severe fecal retention in the colon.
[2016-08-31] MEDS ORDERED: Magnesium Citrate Oral SOL (300 ml) PO ONE (11:30)
[2016-08-31] MEDS: Valproic Acid 250 mg/5 ml UD Cup PO SCH ×2 (11:50→18:18)
[2016-08-31 11:55] LABS: BASO # 0.1 K/uL (0.0-0.2); EOS # 0.5 K/uL (0.0-0.7); EOS % 8.3 % (0.0-4.0); HEMATOCRIT 29.9 % (35.0-51.0); LYMPH # 1.9 K/uL (1.0-4.3); LYMPH % 30.1 % (20.0-40.0); MEAN CELL VOLUME 81.1 fL (80.0-94.0); MEAN CORPUSCULAR HEMOGLOBIN 26.5 pg (27.0-31.0); MEAN CORPUSCULAR HGB CONC 32.7 g/dL (33.0-37.0); MEAN PLATELET VOLUME 10.2 fL (7.2-11.7); MONO # 0.7 K/uL (0.0-0.8); MONO % 11.1 % (0.0-10.0); RED CELL DISTRIBUTION WIDTH 14.4 % (11.5-14.5); WHITE BLOOD COUNT 6.3 K/uL (4.8-10.8)
[2016-08-31] MEDS: Fluticasone Nasal 50 mcg/Spray NAS SCH ×2 (12:03→18:18)
[2016-08-31] MEDS: [UNRECOGNIZED DRUG - OTHER] OS SCH ×2 (12:06→18:19)
--- NOTE | 2016-08-31 19:25 | CP.PCM.PN ---
<Marleni Vidal - Last Filed: 08/31/16 19:37> Subjective - Date & Time of Evaluation Date of Evaluation: 08/31/16 Time of Evaluation: 07:30 - Subjective Subjective: PGY-1 medicine note- Dr. Garner's Service Patient seen and examined at bedside and in no acute distress. Patient more alert and speaking more. Patient anxious to see and with a big appetite. Patient had no bowel movement today (day 6). Objective - Vital Signs/Intake and Output Vital Signs (last 24 hours): Temp Pulse Resp BP Pulse Ox 98.3 F 83 20 113/76 100 08/31/16 16:36 08/31/16 16:36 08/31/16 16:36 08/31/16 16:36 08/31/16 16:36 Intake and Output: 08/31/16 09/01/16 18:59 06:59 Intake Total 400 Balance 400 - Medications Medications: Current Medications Acetylcysteine (Acetylcysteine 20%) 4 ml INH Q6H [facility] Last Admin: 08/31/16 13:57 Dose: 4 ml Albuterol/Ipratropium (Duoneb 3 Mg/0.5 Mg (3 Ml) Ud) 3 ml INH RQ6 [facility] Last Admin: 08/31/16 13:56 Dose: 3 ml Amantadine HCl (Amantadine 100 Mg Cap) 100 mg GT BID [facility] Last Admin: 08/31/16 18:18 Dose: 100 mg Docusate Sodium (Colace) 100 mg PO BID [facility] Last Admin: 08/31/16 18:18 Dose: 100 mg Famotidine (Pepcid) 20 mg PO DAILY [facility] Last Admin: 08/31/16 12:05 Dose: 20 mg Fluticasone Propionate (Flonase) 1 spr BO BID [facility] Last Admin: 08/31/16 18:18 Dose: 1 spray Heparin Sodium (Porcine) (Heparin) 5,000 units SC Q12 [facility] Last Admin: 08/31/16 10:59 Dose: Not Given Home Med (Patient's Own Drops) 1 drop OS BID [facility] Stop: 09/19/16 18:01 Last Admin: 08/31/16 18:19 Dose: 1 drop Latanoprost (Xalatan Opht) 0 ml OD HS [facility] Stop: 09/05/16 18:00 Last Admin: 08/30/16 22:30 Dose: 2.5 ml Lisinopril (Zestril) 10 mg PO DAILY [facility] Last Admin: 08/31/16 11:50 Dose: 10 mg Lorazepam (Ativan) 0.5 mg IVP Q6H PRN PRN Reason: Anxiety Last Admin: 08/29/16 23:42 Dose: 0.5 mg Senna/Docusate Sodium (Senokot S 50 Mg-8.6 Mg) 1 tab PO HS [facility] Last Admin: 08/30/16 22:36 Dose: Not Given Timolol Maleate (Timoptic 0.5% Ophth Soln) 0 drop OD DAILY [facility] Last Admin: 08/31/16 12:04 Dose: 1 drop Valproate Sodium (Depakene Oral Soln) 250 mg PO BID [facility] Last Admin: 08/31/16 18:18 Dose: 250 mg - Labs Labs: 08/31/16 11:43 08/31/16 08:15 PT 12.4 SECONDS (9.7-12.2) H 08/18/16 06:26 INR 1.1 08/18/16 06:26 APTT 29 SECONDS (21-34) 08/18/16 06:26 - Constitutional Appears: Well, Non-toxic, No Acute Distress - Head Exam Head Exam: ATRAUMATIC, NORMAL INSPECTION, NORMOCEPHALIC - Eye Exam Eye Exam: EOMI, PERRL. absent: Normal appearance Additional comments: left eye estropia - ENT Exam ENT Exam: Mucous Membranes Moist, Normal Exam - Neck Exam Neck Exam: Full ROM - Respiratory Exam Respiratory Exam: Clear to Ausculation Bilateral, NORMAL BREATHING PATTERN. absent: Rales, Rhonchi, Wheezes, Stridor - Cardiovascular Exam Cardiovascular Exam: REGULAR RHYTHM, RRR, +S1, +S2. absent: Gallop, Rubs, Murmur - GI/Abdominal Exam GI & Abdominal Exam: Soft, Normal Bowel Sounds. absent: Distended, Firm, Rigid , Tenderness - Extremities Exam Extremities Exam: Full ROM, Normal Capillary Refill, Normal Inspection. absent : Joint Swelling, Pedal Edema - Back Exam Back Exam: NORMAL INSPECTION - Neurological Exam Neurological Exam: Alert, Awake, Oriented x3 - Psychiatric Exam Psychiatric exam: Normal Affect, Normal Mood - Skin Skin Exam: Normal Color, Warm Assessment and Plan (1) Cerebral hemorrhage Assessment & Plan: Neurosurgery on board- Dr. Rose/Yuan- help appreciated * s/p Radford hole and evacuation of subdural hemorrhage with Dang and David drain 08/01/16 * s/p right frontotemporal craniotomy; evacuation of acute subdural drain present * Removal of drain on 08/03/16 * Removal of uriel 08/29/16 Neurology on board- Dr. Bonner- help appreciated * Patient is stable and participating with PT/OT. * Monitor the blood pressure. * Continue Depakote 500 mg po qd for seizure ppx, headache, and mood stabilization. * Continue Amantidine. No methylphenidate as per Dr. Bonner. 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 No midline shaft, herniation or hydrocephalus. * Head CT (08/13/16): redemonstrated to small to medium sized hypodense of residual right sided subdural hematoma. Minmindal right to left midline shift. Previously noted small amount of subdural air on prior study has undegone further resoprtion. Persistent mild subjacent mass effect with compression of cerebral sulci and mild compression of right lateral ventricle. No evidence of obstructive hydrocephalus. Status: Acute (2) Acute respiratory failure Assessment & Plan: S/P trach removal 08/29/16 (trach had been placed 08/15/16) * monitor healing site * tube feedings supplement to dysphagia diet (thin pureed)-- held due to constipation Pulm consulted- Dr. Kumari, help appreciated. Continue Duonebs RQ6 [facility] Continue Acetylcysteine 4 ml INH Q6h [facility] Continue Flonase 1 spr Bo BID General Surgery (Dr. Levin) on board Cont to monitor. Status: Acute (3) Hypertension Assessment & Plan: Continue Lisinopril 10 mg PO Daily. Status: Chronic (4) Diabetes Assessment & Plan: 08/01/16- Hg A1c-5.9 Accuchecks Q6 hours ISS subq Q6H Status: Chronic (5) Constipation Assessment & Plan: Patient has not had BM in 6 days. Mag Citrate ordered. Abdominal xray 08/31: Severe fecal retention in colon. Diet held. Repeat abdominal xray. D5 1/2 NS at 65ml started. Status: Acute (6) ESBL (extended spectrum beta-lactamase) producing bacteria infection Assessment & Plan: Blood culture negative 08/12, urine culture negative 08/17 * white count trending down: 8.4 * Primaxin stopped 08/28, 10 days given. Status: Resolved (7) Cough Assessment & Plan: Rule out pneumonia Sputum culture 08/22/: normal oral val Cxray 08/27: No significant change. Right kate diaphragmatic pleural calcification or right hepatic dome calcification, appearance unchanged. Trach in place. Biapical pleural thickening with upper lobe granulomatous changes. Hyperinflation suggestive for COPD and or emphysematous changes. Status: Resolved (8) Prophylactic measure Assessment & Plan: Lovenox switched to Heparin 5000 u SC Q12 Pepcid 20mg PO daily No benzos Seizure prophylaxis PEG tube in place Status: Acute <Connie Garner V - Last Filed: 09/01/16 11:19> Objective - Vital Signs/Intake and Output Vital Signs (last 24 hours): Temp Pulse Resp BP Pulse Ox 98.2 F 82 20 124/80 98 09/01/16 07:00 09/01/16 07:00 09/01/16 07:00 09/01/16 07:00 09/01/16 07:00 Intake and Output: 09/01/16 09/01/16 06:59 18:59 Intake Total 1075 Balance 1075 - Medications Medications: Current Medications Acetylcysteine (Acetylcysteine 20%) 4 ml INH Q6H [facility] Last Admin: 09/01/16 07:33 Dose: 4 ml Albuterol/Ipratropium (Duoneb 3 Mg/0.5 Mg (3 Ml) Ud) 3 ml INH RQ6 [facility] Last Admin: 09/01/16 07:33 Dose: 3 ml Amantadine HCl (Amantadine 100 Mg Cap) 100 mg GT BID [facility] Last Admin: 09/01/16 10:49 Dose: 100 mg Docusate Sodium (Colace) 100 mg PO BID [facility] Last Admin: 09/01/16 10:49 Dose: 100 mg Famotidine (Pepcid) 20 mg PO DAILY [facility] Last Admin: 09/01/16 10:50 Dose: 20 mg Fluticasone Propionate (Flonase) 1 spr BO BID [facility] Last Admin: 09/01/16 10:52 Dose: 1 spray Heparin Sodium (Porcine) (Heparin) 5,000 units SC Q12 [facility] Last Admin: 08/31/16 10:59 Dose: Not Given Home Med (Patient's Own Drops) 1 drop OS BID [facility] Stop: 09/19/16 18:01 Last Admin: 09/01/16 10:54 Dose: 1 drop Dextrose/Sodium Chloride (Dextrose 5%/0.45% Ns 1000 Ml) 1,000 mls @ 65 mls/hr IV .[id number] [facility] Last Admin: 08/31/16 20:01 Dose: 65 mls/hr Latanoprost (Xalatan Opht) 0 ml OD HS [facility] Stop: 09/05/16 18:00 Last Admin: 08/31/16 22:19 Dose: 2.5 ml Lisinopril (Zestril) 10 mg PO DAILY [facility] Last Admin: 09/01/16 10:49 Dose: 10 mg Lorazepam (Ativan) 0.5 mg IVP Q6H PRN PRN Reason: Anxiety Last Admin: 08/31/16 23:21 Dose: 0.5 mg Senna/Docusate Sodium (Senokot S 50 Mg-8.6 Mg) 1 tab PO HS [facility] Last Admin: 08/31/16 22:19 Dose: 1 tab Timolol Maleate (Timoptic 0.5% Ophth Soln) 0 drop OD DAILY [facility] Last Admin: 09/01/16 10:56 Dose: 1 drop Valproate Sodium (Depakene Oral Soln) 250 mg PO BID [facility] Last Admin: 09/01/16 10:50 Dose: 250 mg - Labs Labs: 09/01/16 08:37 09/01/16 07:00 PT 12.4 SECONDS (9.7-12.2) H 08/18/16 06:26 INR 1.1 08/18/16 06:26 APTT 29 SECONDS (21-34) 08/18/16 06:26 Assessment and Plan (1) Cerebral hemorrhage Status: Acute (2) Hypertension Status: Chronic (3) Diabetes Status: Chronic (4) Leukocytosis Status: Acute (5) Urinary tract infection Status: Acute (6) ESBL (extended spectrum beta-lactamase) producing bacteria infection Status: Resolved (7) Prophylactic measure Status: Acute Attending/Attestation - Attestation I have personally seen and examined this patient.: Yes I have fully participated in the care of the patient.: Yes I have reviewed all pertinent clinical information, including history, physical exam and plan: Yes Notes (Text): This is late computer entry for 08/31/16. Patient seen, examined and case discussed with day-time resident. Patient seen during rounds. Patient is sitting upright, conversant, alert. Patient completed abdominal xray which showed severe fecal retention. Held feeds by mouth. Ordered for magnesium citrate and follow-up for bowel movement. Patient reports for repeat abdominal xray in the morning. Discussed with patient's daughter, Nelia on the phone regarding updates regarding her father.
[2016-08-31] MEDS: Dextrose 5%/0.45% NS 1,000 ML IV SCH (20:01)
[2016-08-31] MEDS: Docusate-Senna 50 mg-8.6 mg Tab PO SCH (22:19)
[2016-08-31] MEDS: Latanoprost 2.5 ml Opht Soln OD SCH (22:19)
--- NOTE | 2016-09-01 00:49 | CP.PCM.PN ---
<Krissy Tinsley - Last Filed: 09/01/16 07:45> Subjective - Date & Time of Evaluation Date of Evaluation: 09/01/16 Time of Evaluation: 00:40 - Subjective Subjective: PGY-1 medicine note- Dr. Garner's Service Patient seen and examined at bedside in AM and in no acute distress. Patient had no bowel movement today (day 7). Objective - Vital Signs/Intake and Output Vital Signs (last 24 hours): Temp Pulse Resp BP Pulse Ox 98.3 F 83 20 113/76 100 08/31/16 16:36 08/31/16 16:36 08/31/16 16:36 08/31/16 16:36 08/31/16 16:36 Intake and Output: 08/31/16 09/01/16 18:59 06:59 Intake Total 400 Balance 400 - Medications Medications: Current Medications Acetylcysteine (Acetylcysteine 20%) 4 ml INH Q6H [facility] Last Admin: 08/31/16 19:39 Dose: 4 ml Albuterol/Ipratropium (Duoneb 3 Mg/0.5 Mg (3 Ml) Ud) 3 ml INH RQ6 [facility] Last Admin: 08/31/16 19:39 Dose: 3 ml Amantadine HCl (Amantadine 100 Mg Cap) 100 mg GT BID [facility] Last Admin: 08/31/16 18:18 Dose: 100 mg Docusate Sodium (Colace) 100 mg PO BID [facility] Last Admin: 08/31/16 18:18 Dose: 100 mg Famotidine (Pepcid) 20 mg PO DAILY [facility] Last Admin: 08/31/16 12:05 Dose: 20 mg Fluticasone Propionate (Flonase) 1 spr BO BID [facility] Last Admin: 08/31/16 18:18 Dose: 1 spray Heparin Sodium (Porcine) (Heparin) 5,000 units SC Q12 [facility] Last Admin: 08/31/16 10:59 Dose: Not Given Home Med (Patient's Own Drops) 1 drop OS BID [facility] Stop: 09/19/16 18:01 Last Admin: 08/31/16 18:19 Dose: 1 drop Dextrose/Sodium Chloride (Dextrose 5%/0.45% Ns 1000 Ml) 1,000 mls @ 65 mls/hr IV .[id number] [facility] Last Admin: 08/31/16 20:01 Dose: 65 mls/hr Latanoprost (Xalatan Opht) 0 ml OD HS [facility] Stop: 09/05/16 18:00 Last Admin: 08/31/16 22:19 Dose: 2.5 ml Lisinopril (Zestril) 10 mg PO DAILY [facility] Last Admin: 08/31/16 11:50 Dose: 10 mg Lorazepam (Ativan) 0.5 mg IVP Q6H PRN PRN Reason: Anxiety Last Admin: 08/31/16 23:21 Dose: 0.5 mg Senna/Docusate Sodium (Senokot S 50 Mg-8.6 Mg) 1 tab PO HS [facility] Last Admin: 08/31/16 22:19 Dose: 1 tab Timolol Maleate (Timoptic 0.5% Ophth Soln) 0 drop OD DAILY [facility] Last Admin: 08/31/16 12:04 Dose: 1 drop Valproate Sodium (Depakene Oral Soln) 250 mg PO BID [facility] Last Admin: 08/31/16 18:18 Dose: 250 mg - Labs Labs: 08/31/16 11:43 08/31/16 08:15 PT 12.4 SECONDS (9.7-12.2) H 08/18/16 06:26 INR 1.1 08/18/16 06:26 APTT 29 SECONDS (21-34) 08/18/16 06:26 - Constitutional Appears: No Acute Distress - Respiratory Exam Respiratory Exam: Clear to Ausculation Bilateral, NORMAL BREATHING PATTERN - Cardiovascular Exam Cardiovascular Exam: REGULAR RHYTHM, +S1, +S2 - Neurological Exam Neurological Exam: Alert, Awake, Oriented x3 Assessment and Plan - Assessment and Plan (Free Text) Plan: 1.) Cerebral hemorrhage Neurosurgery on board- Dr. Rose/Yuan- help appreciated * s/p Kyelr hole and evacuation of subdural hemorrhage with Dang and David drain 08/01/16 * s/p right frontotemporal craniotomy; evacuation of acute subdural drain present * Removal of drain on 08/03/16 * Removal of uriel 08/29/16 Neurology on board- Dr. Bonner- raymon appreciated * Patient is stable and participating with PT/OT. * Monitor the blood pressure. * Continue Depakote 500 mg po qd for seizure ppx, headache, and mood stabilization. * Continue Amantidine. No methylphenidate as per Dr. Bonner. 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 No midline shaft, herniation or hydrocephalus. * Head CT (08/13/16): redemonstrated to small to medium sized hypodense of residual right sided subdural hematoma. Minmindal right to left midline shift. Previously noted small amount of subdural air on prior study has undegone further resoprtion. Persistent mild subjacent mass effect with compression of cerebral sulci and mild compression of right lateral ventricle. No evidence of obstructive hydrocephalus. 2.) Acute respiratory failure S/P trach removal 08/29/16 (trach had been placed 08/15/16) * monitor healing site * tube feedings supplement to dysphagia diet (thin pureed)-- held due to constipation Pulm consulted- Dr. Kumari, help appreciated. Continue Duonebs RQ6 [facility] Continue Acetylcysteine 4 ml INH Q6h [facility] Continue Flonase 1 spr Bo BID General Surgery (Dr. Levin) on board Cont to monitor. 3.) Hypertension Continue Lisinopril 10 mg PO Daily. 4.) Diabetes 08/01/16- Hg A1c-5.9 Accuchecks Q6 hours ISS subq Q6H 5.) Constipation Patient has not had BM in 7 days. Mag Citrate ordered. Abdominal xray 08/31: Severe fecal retention in colon. Diet held. Repeat abdominal xray. D5 1/2 NS at 65ml started. 6.) ESBL (extended spectrum beta-lactamase) producing bacteria infection Blood culture negative 08/12, urine culture negative 08/17 * white count trending down: 8.4 * Primaxin stopped 08/28, 10 days given. 7.) Cough Rule out pneumonia Sputum culture 08/22/: normal oral val Cxray 08/27: No significant change. Right kate diaphragmatic pleural calcification or right hepatic dome calcification, appearance unchanged. Trach in place. Biapical pleural thickening with upper lobe granulomatous changes. Hyperinflation suggestive for COPD and or emphysematous changes. 8.) Prophylaxis Lovenox switched to Heparin 5000 u SC Q12 Pepcid 20mg PO daily No benzos Seizure prophylaxis PEG tube in place <Connie Garner V - Last Filed: 09/01/16 11:33> Objective - Vital Signs/Intake and Output Vital Signs (last 24 hours): Temp Pulse Resp BP Pulse Ox 98.2 F 82 20 124/80 98 09/01/16 07:00 09/01/16 07:00 09/01/16 07:00 09/01/16 07:00 09/01/16 07:00 Intake and Output: 09/01/16 09/01/16 06:59 18:59 Intake Total 1075 Balance 1075 - Medications Medications: Current Medications Acetylcysteine (Acetylcysteine 20%) 4 ml INH Q6H [facility] Last Admin: 09/01/16 07:33 Dose: 4 ml Albuterol/Ipratropium (Duoneb 3 Mg/0.5 Mg (3 Ml) Ud) 3 ml INH RQ6 [facility] Last Admin: 09/01/16 07:33 Dose: 3 ml Amantadine HCl (Amantadine 100 Mg Cap) 100 mg GT BID [facility] Last Admin: 09/01/16 10:49 Dose: 100 mg Docusate Sodium (Colace) 100 mg PO BID [facility] Last Admin: 09/01/16 10:49 Dose: 100 mg Famotidine (Pepcid) 20 mg PO DAILY [facility] Last Admin: 09/01/16 10:50 Dose: 20 mg Fluticasone Propionate (Flonase) 1 spr BO BID [facility] Last Admin: 09/01/16 10:52 Dose: 1 spray Heparin Sodium (Porcine) (Heparin) 5,000 units SC Q12 [facility] Last Admin: 08/31/16 10:59 Dose: Not Given Home Med (Patient's Own Drops) 1 drop OS BID [facility] Stop: 09/19/16 18:01 Last Admin: 09/01/16 10:54 Dose: 1 drop Dextrose/Sodium Chloride (Dextrose 5%/0.45% Ns 1000 Ml) 1,000 mls @ 65 mls/hr IV .[id number] [facility] Last Admin: 08/31/16 20:01 Dose: 65 mls/hr Latanoprost (Xalatan Opht) 0 ml OD HS [facility] Stop: 09/05/16 18:00 Last Admin: 08/31/16 22:19 Dose: 2.5 ml Lisinopril (Zestril) 10 mg PO DAILY [facility] Last Admin: 09/01/16 10:49 Dose: 10 mg Lorazepam (Ativan) 0.5 mg IVP Q6H PRN PRN Reason: Anxiety Last Admin: 08/31/16 23:21 Dose: 0.5 mg Senna/Docusate Sodium (Senokot S 50 Mg-8.6 Mg) 1 tab PO HS [facility] Last Admin: 08/31/16 22:19 Dose: 1 tab Timolol Maleate (Timoptic 0.5% Ophth Soln) 0 drop OD DAILY [facility] Last Admin: 09/01/16 10:56 Dose: 1 drop Valproate Sodium (Depakene Oral Soln) 250 mg PO BID [facility] Last Admin: 09/01/16 10:50 Dose: 250 mg - Labs Labs: 09/01/16 08:37 09/01/16 07:00 PT 12.4 SECONDS (9.7-12.2) H 08/18/16 06:26 INR 1.1 08/18/16 06:26 APTT 29 SECONDS (21-34) 08/18/16 06:26 Assessment and Plan (1) Cerebral hemorrhage Status: Acute (2) Hypertension Status: Chronic (3) Diabetes Status: Chronic (4) Leukocytosis Status: Acute (5) Urinary tract infection Status: Acute (6) ESBL (extended spectrum beta-lactamase) producing bacteria infection Status: Resolved (7) Prophylactic measure Status: Acute Attending/Attestation - Attestation I have personally seen and examined this patient.: Yes I have fully participated in the care of the patient.: Yes I have reviewed all pertinent clinical information, including history, physical exam and plan: Yes Notes (Text): Patient seen, examined and case discussed with day-time resident. Patient seen with daughterNelia at bedside. Patient is sitting upright, conversant in Danish, alert, awake, eager. Patient is refusing feed via feeding tube. Patient is awaiting results from abdominal xray. Per discussion with daughter, patient has one large bowel movement yesterday and 2 bowel movements when she was here last night. Goal for discharge; per discussion with daughter, patient will live with her in her house, lives on the 2nd floor, and the goal is when he is safe for travel, he will live in [place]. She reports he will be able to have supportive, extensive care with her brothers and other relatives in [place]. 1.) Cerebral hemorrhage Neurosurgery on board- Dr. Rose/Yuan- help appreciated * s/p Kyler hole and evacuation of subdural hemorrhage with Dang and David drain 08/01/16 * s/p right frontotemporal craniotomy; evacuation of acute subdural drain present * Removal of drain on 08/03/16 * Removal of uriel 08/29/16 Neurology on board- Dr. Bonner- help appreciated * Patient is stable and participating with PT/OT. * Monitor the blood pressure. * Continue Depakote 500 mg po qd for seizure ppx, headache, and mood stabilization. * Continue Amantidine 100mg G BID. No methylphenidate as per Dr. Bonner. 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 No midline shaft, herniation or hydrocephalus. * Head CT (08/13/16): redemonstrated to small to medium sized hypodense of residual right sided subdural hematoma. Minmindal right to left midline shift. Previously noted small amount of subdural air on prior study has undegone further resoprtion. Persistent mild subjacent mass effect with compression of cerebral sulci and mild compression of right lateral ventricle. No evidence of obstructive hydrocephalus. 2.) Acute respiratory failure S/P trach removal 08/29/16 (trach had been placed 08/15/16) * monitor healing site * tube feedings supplement to dysphagia diet (thin pureed)-- held due to constipation Pulm consulted- Dr. Kumari, help appreciated. Continue Duonebs RQ6 [facility] Continue Acetylcysteine 4 ml INH Q6h [facility] Continue Flonase 1 spr Bo BID General Surgery (Dr. Levin) on board--for trach GI (Dr. Guallpa) on board-->peg placement Cont to monitor. 3.) Hypertension Continue Lisinopril 10 mg PO Daily. 4.) Diabetes 08/01/16- Hg A1c-5.9 Accuchecks QAC and HS ISS subq Q6H D51/2 NS 50 cc/hr 5.) Constipation Patient has had multiple bowel movements. Awaiting result from repeat Xray to restart diet by mouth. Colace 100mg PO bid Abdominal xray 08/31: Severe fecal retention in colon. Diet held. Repeat abdominal xray. D5 03/12 NS at 65ml started. 6.) ESBL (extended spectrum beta-lactamase) producing bacteria infection Blood culture negative 08/12, urine culture negative 08/17 * white count trending down: 8.4 * Primaxin stopped 08/28, 10 days given. 7.) Cough Resolved Rule out pneumonia Sputum culture 08/22/: normal oral val Cxray 08/27: No significant change. Right kate diaphragmatic pleural calcification or right hepatic dome calcification, appearance unchanged. Trach in place. Biapical pleural thickening with upper lobe granulomatous changes. Hyperinflation suggestive for COPD and or emphysematous changes. 8.) Prophylactic measures Heparin 5000 u SC Q12-->which was discussed with neurosurgery and neurology prior to restarting Physical therapy: Home w/ home PT, RW and possible home O2; discussed with Dr. Kumari-->patient does not need home oxygen Occupational therapy: Pt tolerated treatment w/o any complications; improving in transfers and functional mobility.Mobility of bue remain wfl with good strength. Swallow eval: Suggest: 1. Begin Finely chopped diet for now for safety with thin liquids. 2. APRON OPERATOR to f/u for tolerance and upgrade 3. Aspiration precautions Pepcid 20mg PO daily No benzos Seizure prophylaxis Disposition: * when patient is tolerating diet * When patient is safe for travel, will need to discuss with consultants, per discussion with daughter, the goal is to send the patient back to [place] where there is entensive support available to take care of father
[2016-09-01] MEDS: Albuterol-Ipratrop 3 mg / 0.5 (3 ml) UD INH SCH ×4 (01:19→19:27)
[2016-09-01] MEDS: Acetylcysteine 20% Inhal Soln (4ml) INH SCH ×4 (01:20→19:27)
[2016-09-01 07:23] LABS: CHLORIDE 99 mmol/L (98-107); SODIUM 135 mmol/L (132-148)
[2016-09-01 07:25] LABS: GFR AFRICAN-AMERICAN > 60
[2016-09-01 07:26] LABS: ALB/GLOB RATIO 1.1 (1.0-2.1); ALKALINE PHOSPHATASE 80 U/L (38-126); ALT/SGPT 50 U/L (21-72); AST/SGOT 31 U/L (17-59); BILIRUBIN,TOTAL 0.6 mg/dL (0.2-1.3); BLOOD UREA NITROGEN 8 mg/dL (9-20); CARBON DIOXIDE 28 mmol/L (22-30); GLUCOSE,RANDOM 115 mg/dL (75-110); TOTAL PROTEIN 6.3 g/dL (6.3-8.3)
[2016-09-01 07:27] LABS: CALCIUM 8.4 mg/dl (8.6-10.4); MAGNESIUM 2.4 mg/dL (1.6-2.3)
[2016-09-01 08:48] LABS: BASO # 0.1 K/uL (0.0-0.2); BASO % 0.9 % (0.0-2.0); EOS # 0.5 K/uL (0.0-0.7); EOS % 8.3 % (0.0-4.0); HEMATOCRIT 32.3 % (35.0-51.0); LYMPH # 2.4 K/uL (1.0-4.3); LYMPH % 38.3 % (20.0-40.0); MEAN CELL VOLUME 80.9 fL (80.0-94.0); MEAN CORPUSCULAR HGB CONC 32.2 g/dL (33.0-37.0); MEAN PLATELET VOLUME 10.3 fL (7.2-11.7); MONO # 0.7 K/uL (0.0-0.8); MONO % 11.7 % (0.0-10.0); NRBC % 0.1 % (0.0-2.0); RED CELL DISTRIBUTION WIDTH 14.7 % (11.5-14.5); WHITE BLOOD COUNT 6.1 K/uL (4.8-10.8)
[2016-09-01] MEDS: Valproic Acid 250 mg/5 ml UD Cup PO SCH ×2 (10:50→18:13)
[2016-09-01] MEDS: Fluticasone Nasal 50 mcg/Spray NAS SCH ×2 (10:52→18:13)
[2016-09-01] MEDS: [UNRECOGNIZED DRUG - OTHER] OS SCH ×2 (10:54→18:14)
[2016-09-01] MEDS: Dextrose 5%/0.45% NS 1,000 ML IV SCH (12:06)
--- NOTE | 2016-09-01 12:27 | RAD ---
HISTORY: constipation COMPARISON: 08/31/2016 FINDINGS: BOWEL: No evidence of bowel obstruction. Moderate retained feces. Percutaneous gastrostomy tube noted. No hepatic or splenic enlargement. BONES: Normal. OTHER FINDINGS: None. IMPRESSION: Retained feces. Percutaneous gastrostomy tube.
[2016-09-01] MEDS ORDERED: POLYETHYLENE GLYCOL 3350 17 GM/Dose PACKET PO ONE (15:00)
[2016-09-01] MEDS: Latanoprost 2.5 ml Opht Soln OD SCH (21:23)
[2016-09-01] MEDS: Docusate-Senna 50 mg-8.6 mg Tab PO SCH (21:23)
[2016-09-02] MEDS: Acetylcysteine 20% Inhal Soln (4ml) INH SCH ×4 (01:20→19:38)
[2016-09-02] MEDS: Albuterol-Ipratrop 3 mg / 0.5 (3 ml) UD INH SCH ×3 (01:20→19:38)
--- NOTE | 2016-09-02 03:57 | CP.PCM.PN ---
<Krissy Tinsley - Last Filed: 09/02/16 04:50> Subjective - Date & Time of Evaluation Date of Evaluation: 09/02/16 Time of Evaluation: 00:00 - Subjective Subjective: PGY-1 medicine note- Dr. Garner's Service Patient seen and examined at bedside in AM and in no acute distress. Patient had a bowel movement yesterday 09/01/16. Objective - Vital Signs/Intake and Output Vital Signs (last 24 hours): Temp Pulse Resp BP Pulse Ox 98.3 F 84 20 150/78 98 09/01/16 23:20 09/01/16 23:20 09/01/16 23:20 09/01/16 23:20 09/01/16 23:20 - Medications Medications: Current Medications Acetylcysteine (Acetylcysteine 20%) 4 ml INH Q6H [facility] Last Admin: 09/02/16 01:20 Dose: Not Given Albuterol/Ipratropium (Duoneb 3 Mg/0.5 Mg (3 Ml) Ud) 3 ml INH RQ6 [facility] Last Admin: 09/02/16 01:20 Dose: Not Given Amantadine HCl (Amantadine 100 Mg Cap) 100 mg PO BID [facility] Last Admin: 09/01/16 18:13 Dose: 100 mg Docusate Sodium (Colace) 100 mg PO BID [facility] Last Admin: 09/01/16 18:12 Dose: 100 mg Famotidine (Pepcid) 20 mg PO DAILY [facility] Last Admin: 09/01/16 10:50 Dose: 20 mg Fluticasone Propionate (Flonase) 1 spr OB BID [facility] Last Admin: 09/01/16 18:13 Dose: 1 spray Heparin Sodium (Porcine) (Heparin) 5,000 units SC Q12 [facility] Last Admin: 08/31/16 10:59 Dose: Not Given Home Med (Patient's Own Drops) 1 drop OS BID [facility] Stop: 09/19/16 18:01 Last Admin: 09/01/16 18:14 Dose: 1 drop Latanoprost (Xalatan Opht) 0 ml OD HS [facility] Stop: 09/05/16 18:00 Last Admin: 09/01/16 21:23 Dose: 1 ml Lisinopril (Zestril) 10 mg PO DAILY [facility] Last Admin: 09/01/16 10:49 Dose: 10 mg Lorazepam (Ativan) 0.5 mg IVP Q6H PRN PRN Reason: Anxiety Last Admin: 09/01/16 22:50 Dose: 0.5 mg Senna/Docusate Sodium (Senokot S 50 Mg-8.6 Mg) 1 tab PO HS [facility] Last Admin: 09/01/16 21:23 Dose: 1 tab Timolol Maleate (Timoptic 0.5% Ophth Soln) 0 drop OD DAILY [facility] Last Admin: 09/01/16 10:56 Dose: 1 drop Valproate Sodium (Depakene Oral Soln) 250 mg PO BID [facility] Last Admin: 09/01/16 18:13 Dose: 250 mg - Labs Labs: 09/01/16 08:37 09/01/16 07:00 PT 12.4 SECONDS (9.7-12.2) H 08/18/16 06:26 INR 1.1 08/18/16 06:26 APTT 29 SECONDS (21-34) 08/18/16 06:26 - Constitutional Appears: No Acute Distress - Head Exam Head Exam: NORMAL INSPECTION, NORMOCEPHALIC - Eye Exam Additional comments: left eye estropia - Neck Exam Neck Exam: absent: Tenderness - Respiratory Exam Respiratory Exam: Clear to Ausculation Bilateral, NORMAL BREATHING PATTERN. absent: Rales, Rhonchi, Wheezes, Stridor - Cardiovascular Exam Cardiovascular Exam: REGULAR RHYTHM, RRR, +S1, +S2. absent: JVD - GI/Abdominal Exam GI & Abdominal Exam: Soft, Normal Bowel Sounds. absent: Guarding, Tenderness, Rebound - Extremities Exam Extremities Exam: Normal Capillary Refill. absent: Calf Tenderness, Joint Swelling, Pedal Edema, Tenderness - Neurological Exam Neurological Exam: Alert, Awake, Oriented x3 - Psychiatric Exam Psychiatric exam: Normal Affect, Normal Mood - Skin Skin Exam: Dry, Normal Color, Warm Assessment and Plan - Assessment and Plan (Free Text) Plan: 1.) Cerebral hemorrhage Neurosurgery on board- Dr. Rose/Yuan- help appreciated * s/p [place] hole and evacuation of subdural hemorrhage with Dang and David drain 08/01/16 * s/p right frontotemporal craniotomy; evacuation of acute subdural drain present * Removal of drain on 08/03/16 * Removal of uriel 08/29/16 Neurology on board- Dr. Bonner- help appreciated * Patient is stable and participating with PT/OT. * Monitor the blood pressure. * Continue Depakote 500 mg po qd for seizure ppx, headache, and mood stabilization. * Continue Amantidine. No methylphenidate as per Dr. Bonner. 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 No midline shaft, herniation or hydrocephalus. * Head CT (08/13/16): redemonstrated to small to medium sized hypodense of residual right sided subdural hematoma. Minmindal right to left midline shift. Previously noted small amount of subdural air on prior study has undegone further resoprtion. Persistent mild subjacent mass effect with compression of cerebral sulci and mild compression of right lateral ventricle. No evidence of obstructive hydrocephalus. 2.) Acute respiratory failure S/P trach removal 08/29/16 (trach had been placed 08/15/16) * monitor healing site * tube feedings supplement to dysphagia diet (thin pureed)-- held due to constipation Pulm consulted- Dr. Kumari, help appreciated. Continue Duonebs RQ6 [facility] Continue Acetylcysteine 4 ml INH Q6h [facility] Continue Flonase 1 spr Bo BID General Surgery (Dr. Levin) on board Cont to monitor. 3.) Hypertension Continue Lisinopril 10 mg PO Daily. 4.) Diabetes 08/01/16- Hg A1c-5.9 Accuchecks Q6 hours ISS subq Q6H 5.) Constipation Patient had a bowel movement 09/01/16 Mag Citrate ordered. Abdominal xray 08/31: Severe fecal retention in colon. Diet held. Repeat abdominal xray. D5 1/2 NS at 65ml started. 6.) ESBL (extended spectrum beta-lactamase) producing bacteria infection Blood culture negative 08/12, urine culture negative 08/17 * white count trending down: 8.4 * Primaxin stopped 08/28, 10 days given. 7.) Cough Rule out pneumonia Sputum culture 08/22/: normal oral val Cxray 08/27: No significant change. Right kate diaphragmatic pleural calcification or right hepatic dome calcification, appearance unchanged. Trach in place. Biapical pleural thickening with upper lobe granulomatous changes. Hyperinflation suggestive for COPD and or emphysematous changes. 8.) Prophylaxis Lovenox switched to Heparin 5000 u SC Q12 Pepcid 20mg PO daily No benzos Seizure prophylaxis PEG tube in place <Connie Garner V - Last Filed: 09/03/16 07:35> Objective - Vital Signs/Intake and Output Vital Signs (last 24 hours): Temp Pulse Resp BP Pulse Ox 97.9 F 80 20 134/94 H 97 09/02/16 23:20 09/02/16 23:20 09/02/16 23:20 09/02/16 23:20 09/02/16 23:20 - Medications Medications: Current Medications Acetylcysteine (Acetylcysteine 20%) 4 ml INH Q6H [facility] Last Admin: 09/03/16 07:24 Dose: 4 ml Albuterol/Ipratropium (Duoneb 3 Mg/0.5 Mg (3 Ml) Ud) 3 ml INH RQ6 [facility] Last Admin: 09/03/16 07:24 Dose: 3 ml Amantadine HCl (Amantadine 100 Mg Cap) 100 mg PO BID [facility] Last Admin: 09/02/16 19:30 Dose: 100 mg Docusate Sodium (Colace) 100 mg PO BID [facility] Last Admin: 09/02/16 19:30 Dose: 100 mg Famotidine (Pepcid) 20 mg PO DAILY [facility] Last Admin: 09/02/16 09:58 Dose: 20 mg Fluticasone Propionate (Flonase) 1 spr BO BID [facility] Last Admin: 09/02/16 19:30 Dose: 1 spray Heparin Sodium (Porcine) (Heparin) 5,000 units SC Q12 [facility] Last Admin: 08/31/16 10:59 Dose: Not Given Home Med (Patient's Own Drops) 1 drop OS BID [facility] Stop: 09/19/16 18:01 Last Admin: 09/02/16 19:37 Dose: 1 drop Latanoprost (Xalatan Opht) 0 ml OD HS [facility] Stop: 09/05/16 18:00 Last Admin: 09/02/16 22:39 Dose: 1 ml Lisinopril (Zestril) 10 mg PO DAILY [facility] Last Admin: 09/02/16 09:58 Dose: 10 mg Lorazepam (Ativan) 0.5 mg IVP Q6H PRN PRN Reason: Anxiety Last Admin: 09/02/16 22:30 Dose: 0.5 mg Neomycin/Polymyxin/Bacitracin (Neosporin Triple Antibiotic Oint) 1 gm TOP Q12 [facility] Last Admin: 09/02/16 22:30 Dose: 1 applic Senna/Docusate Sodium (Senokot S 50 Mg-8.6 Mg) 1 tab PO HS [facility] Last Admin: 09/02/16 22:30 Dose: 1 tab Timolol Maleate (Timoptic 0.5% Ophth Soln) 0 drop OD DAILY [facility] Last Admin: 09/02/16 10:02 Dose: 1 drop Valproate Sodium (Depakene Oral Soln) 250 mg PO BID [facility] Last Admin: 09/02/16 19:30 Dose: 250 mg Vitamin A (Vitamin A & D Oint Ud Foilpak) 1 ea TOP BID [facility] Last Admin: 09/02/16 22:31 Dose: 1 ea - Labs Labs: 09/02/16 08:21 09/02/16 08:21 PT 12.4 SECONDS (9.7-12.2) H 08/18/16 06:26 INR 1.1 08/18/16 06:26 APTT 29 SECONDS (21-34) 08/18/16 06:26 Assessment and Plan (1) Cerebral hemorrhage Status: Acute (2) Hypertension Status: Chronic (3) Diabetes Status: Chronic (4) Leukocytosis Status: Acute (5) Urinary tract infection Status: Acute (6) ESBL (extended spectrum beta-lactamase) producing bacteria infection Status: Resolved (7) Prophylactic measure Status: Acute Attending/Attestation - Attestation I have personally seen and examined this patient.: Yes I have fully participated in the care of the patient.: Yes I have reviewed all pertinent clinical information, including history, physical exam and plan: Yes Notes (Text): This is late computer entry for 09/02/16. Patient seen, examined and case discussed with day-time resident. Patient seen with daughterNelia at bedside. Patient is sitting upright, conversant in English, alert, awake, eager. Patient is refusing feed via feeding tube. Restart diet yesterday given abdominal xray. Will need to follow to see how patient tolerates diet Will need to f/u neurosurgery regarding when patient is safe for travel Goal for discharge; per discussion with daughter, patient will live with her in her house, lives on the 2nd floor, and the goal is when he is safe for travel, he will live in [place]. She reports he will be able to have supportive, extensive care with her brothers and other relatives in [place]. 1.) Cerebral hemorrhage Neurosurgery on board- Dr. Rose/Yuan- help appreciated * s/p [place] hole and evacuation of subdural hemorrhage with Dang and David drain 08/01/16 * s/p right frontotemporal craniotomy; evacuation of acute subdural drain present * Removal of drain on 08/03/16 * Removal of uriel 08/29/16 Neurology on board- Dr. Bonner- help appreciated * Patient is stable and participating with PT/OT. * Monitor the blood pressure. * Continue Depakote 500 mg po qd for seizure ppx, headache, and mood stabilization. * Continue Amantidine 100mg G BID. No methylphenidate as per Dr. Bonner. 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 No midline shaft, herniation or hydrocephalus. * Head CT (08/13/16): redemonstrated to small to medium sized hypodense of residual right sided subdural hematoma. Minimal right to left midline shift. Previously noted small amount of subdural air on prior study has undegone further resoprtion. Persistent mild subjacent mass effect with compression of cerebral sulci and mild compression of right lateral ventricle. No evidence of obstructive hydrocephalus. 2.) Acute respiratory failure S/P trach removal 08/29/16 (trach had been placed 08/15/16) * monitor healing site * tube feedings supplement to dysphagia diet (thin pureed)-- held due to constipation; restarted oral diet on 09/01/16 Pulm consulted- Dr. Kumari, help appreciated. Continue Duonebs RQ6 [facility] Continue Acetylcysteine 4 ml INH Q6h [facility] Continue Flonase 1 spr Bo BID General Surgery (Dr. Levin) on board--for trach GI (Dr. Guallpa) on board-->peg placement Cont to monitor. 3.) Hypertension Continue Lisinopril 10 mg PO Daily. 4.) Diabetes 08/01/16- Hg A1c-5.9 Accuchecks QAC and HS ISS subq Q6H D51/2 NS 50 cc/hr 5.) Constipation Patient has had multiple bowel movements. Restarted diet. Colace 100mg PO bid Abdominal xray 08/31: Severe fecal retention in colon. Abdominal xray: 623 improved d/c D5 1/2 NS at 65ml started. 6.) ESBL (extended spectrum beta-lactamase) producing bacteria infection Blood culture negative 08/12, urine culture negative 08/17 * white count trending down: 8.4 * Primaxin stopped 08/28, 10 days given. 7.) Cough Resolved Rule out pneumonia Sputum culture 08/22/: normal oral val Cxray 08/27: No significant change. Right kate diaphragmatic pleural calcification or right hepatic dome calcification, appearance unchanged. Trach in place. Biapical pleural thickening with upper lobe granulomatous changes. Hyperinflation suggestive for COPD and or emphysematous changes. 8.) Prophylactic measures Heparin 5000 u SC Q12-->which was discussed with neurosurgery and neurology prior to restarting Physical therapy: Home w/ home PT, RW and possible home O2; discussed with Dr. Kumari-->patient does not need home oxygen Occupational therapy: Pt tolerated treatment w/o any complications; improving in transfers and functional mobility.Mobility of bue remain wfl with good strength. Swallow eval: Suggest: 1. Begin Finely chopped diet for now for safety with thin liquids. 2. [employer] ARM[employer]ENT to f/u for tolerance and upgrade 3. Aspiration precautions Pepcid 20mg PO daily No benzos Seizure prophylaxis Disposition: * when patient is tolerating diet * When neurosurgery determines patient is safe to travel by air * When patient is safe for travel, will need to discuss with consultants, per discussion with daughter, the goal is to send the patient back to [place] where there is entensive support available to take care of father
[2016-09-02 08:30] LABS: BASO # 0.1 K/uL (0.0-0.2); BASO % 0.8 % (0.0-2.0); EOS # 0.5 K/uL (0.0-0.7); EOS % 7.7 % (0.0-4.0); HEMATOCRIT 31.9 % (35.0-51.0); LYMPH # 2.7 K/uL (1.0-4.3); LYMPH % 38.8 % (20.0-40.0); MEAN CELL VOLUME 81.5 fL (80.0-94.0); MEAN CORPUSCULAR HEMOGLOBIN 26.4 pg (27.0-31.0); MEAN CORPUSCULAR HGB CONC 32.4 g/dL (33.0-37.0); MEAN PLATELET VOLUME 9.7 fL (7.2-11.7); MONO # 0.7 K/uL (0.0-0.8); MONO % 10.1 % (0.0-10.0); RED CELL DISTRIBUTION WIDTH 14.9 % (11.5-14.5); WHITE BLOOD COUNT 6.9 K/uL (4.8-10.8)
[2016-09-02 08:40] LABS: CHLORIDE 102 mmol/L (98-107); POTASSIUM 4.1 mmol/L (3.6-5.2); SODIUM 141 mmol/L (132-148)
[2016-09-02 08:42] LABS: GFR AFRICAN-AMERICAN > 60
[2016-09-02 08:43] LABS: ALB/GLOB RATIO 1.1 (1.0-2.1); ALKALINE PHOSPHATASE 85 U/L (38-126); ALT/SGPT 51 U/L (21-72); AST/SGOT 28 U/L (17-59); BILIRUBIN,TOTAL 0.6 mg/dL (0.2-1.3); BLOOD UREA NITROGEN 6 mg/dL (9-20); CALCIUM 9.1 mg/dl (8.6-10.4); CARBON DIOXIDE 27 mmol/L (22-30); GLUCOSE,RANDOM 105 mg/dL (75-110); TOTAL PROTEIN 6.8 g/dL (6.3-8.3)
[2016-09-02 08:44] LABS: MAGNESIUM 2.4 mg/dL (1.6-2.3)
[2016-09-02] MEDS: Valproic Acid 250 mg/5 ml UD Cup PO SCH ×2 (10:00→19:30)
[2016-09-02] MEDS: Fluticasone Nasal 50 mcg/Spray NAS SCH ×2 (10:00→19:30)
[2016-09-02] MEDS: [UNRECOGNIZED DRUG - OTHER] OS SCH ×2 (10:01→19:37)
[2016-09-02] MEDS: Bacitracin/Neomycin/Polymyxin Oint(30GM) TOP SCH (22:30)
[2016-09-02] MEDS: Docusate-Senna 50 mg-8.6 mg Tab PO SCH (22:30)
[2016-09-02] MEDS: Vitamins A & D Oint UD Foilpak TOP SCH (22:31)
[2016-09-02] MEDS: Latanoprost 2.5 ml Opht Soln OD SCH (22:39)
[2016-09-03] MEDS: Albuterol-Ipratrop 3 mg / 0.5 (3 ml) UD INH SCH ×4 (01:48→19:30)
[2016-09-03] MEDS: Acetylcysteine 20% Inhal Soln (4ml) INH SCH ×4 (01:48→19:30)
[2016-09-03 07:31] LABS: BASO % 0.8 % (0.0-2.0); EOS # 0.5 K/uL (0.0-0.7); EOS % 8.4 % (0.0-4.0); HEMATOCRIT 31.6 % (35.0-51.0); LYMPH # 2.1 K/uL (1.0-4.3); LYMPH % 38.1 % (20.0-40.0); MEAN CELL VOLUME 80.8 fL (80.0-94.0); MEAN CORPUSCULAR HEMOGLOBIN 26.5 pg (27.0-31.0); MEAN CORPUSCULAR HGB CONC 32.8 g/dL (33.0-37.0); MEAN PLATELET VOLUME 9.8 fL (7.2-11.7); MONO # 0.5 K/uL (0.0-0.8); RED CELL DISTRIBUTION WIDTH 14.7 % (11.5-14.5); WHITE BLOOD COUNT 5.5 K/uL (4.8-10.8)
[2016-09-03 07:35] LABS: CHLORIDE 98 mmol/L (98-107); POTASSIUM 3.8 mmol/L (3.6-5.2); SODIUM 136 mmol/L (132-148)
[2016-09-03 07:37] LABS: AST/SGOT 22 U/L (17-59); BILIRUBIN,TOTAL 0.4 mg/dL (0.2-1.3); CARBON DIOXIDE 27 mmol/L (22-30); GFR AFRICAN-AMERICAN > 60
[2016-09-03 07:38] LABS: ALKALINE PHOSPHATASE 78 U/L (38-126); ALT/SGPT 46 U/L (21-72); BLOOD UREA NITROGEN 5 mg/dL (9-20); CALCIUM 8.7 mg/dl (8.6-10.4); GLUCOSE,RANDOM 135 mg/dL (75-110); MAGNESIUM 2.1 mg/dL (1.6-2.3); PHOSPHOROUS 3.8 mg/dL (2.5-4.5); TOTAL PROTEIN 6.5 g/dL (6.3-8.3)
[2016-09-03] MEDS: Vitamins A & D Oint UD Foilpak TOP SCH ×2 (09:46→17:18)
[2016-09-03] MEDS: Fluticasone Nasal 50 mcg/Spray NAS SCH ×2 (09:47→17:18)
[2016-09-03] MEDS: Valproic Acid 250 mg/5 ml UD Cup PO SCH ×2 (09:47→17:18)
[2016-09-03] MEDS: [UNRECOGNIZED DRUG - OTHER] OS SCH ×2 (09:48→17:19)
[2016-09-03] MEDS: Bacitracin/Neomycin/Polymyxin Oint(30GM) TOP SCH ×2 (10:35→22:32)
[2016-09-03 15:27] VITALS: RESP 20
--- NOTE | 2016-09-03 21:13 | CP.PCM.PN ---
Subjective - Date & Time of Evaluation Date of Evaluation: 09/03/16 Time of Evaluation: 09:15 - Subjective Subjective: Medicine Note (PGY1) : Dr. Crowley's Service Patient was seen and examined at bedside. Patient had no acute events overnight. Patient is doing well and had no new complaints. Patient is tolerating diet and not utilizing his PEG tube. Patient denies chest pain, sob, nausea, vomiting, abd pain, diarrhea and constipation Objective - Vital Signs/Intake and Output Vital Signs (last 24 hours): Temp Pulse Resp BP Pulse Ox 97.8 F 85 20 128/82 99 09/03/16 15:22 09/03/16 15:22 09/03/16 15:22 09/03/16 15:22 09/03/16 15:22 Intake and Output: 09/03/16 09/04/16 18:59 06:59 Intake Total 500 Balance 500 - Medications Medications: Current Medications Acetaminophen (Tylenol 325mg Tab) 650 mg PO Q6 PRN PRN Reason: Headache Last Admin: 09/03/16 19:58 Dose: 650 mg Acetylcysteine (Acetylcysteine 20%) 4 ml INH Q6H [facility] Last Admin: 09/03/16 19:30 Dose: Not Given Albuterol/Ipratropium (Duoneb 3 Mg/0.5 Mg (3 Ml) Ud) 3 ml INH RQ6 [facility] Last Admin: 09/03/16 19:30 Dose: Not Given Amantadine HCl (Amantadine 100 Mg Cap) 100 mg PO BID [facility] Last Admin: 09/03/16 17:18 Dose: 100 mg Docusate Sodium (Colace) 100 mg PO BID [facility] Last Admin: 09/03/16 17:18 Dose: 100 mg Famotidine (Pepcid) 20 mg PO DAILY [facility] Last Admin: 09/03/16 09:46 Dose: 20 mg Fluticasone Propionate (Flonase) 1 spr BO BID [facility] Last Admin: 09/03/16 17:18 Dose: 1 spray Heparin Sodium (Porcine) (Heparin) 5,000 units SC Q12 [facility] Last Admin: 08/31/16 10:59 Dose: Not Given Home Med (Patient's Own Drops) 1 drop OS BID [facility] Stop: 09/19/16 18:01 Last Admin: 09/03/16 17:19 Dose: 1 drop Latanoprost (Xalatan Opht) 0 ml OD HS [facility] Stop: 09/05/16 18:00 Last Admin: 09/02/16 22:39 Dose: 1 ml Lisinopril (Zestril) 10 mg PO DAILY [facility] Last Admin: 09/03/16 09:46 Dose: 10 mg Lorazepam (Ativan) 0.5 mg IVP Q6H PRN PRN Reason: Anxiety Last Admin: 09/02/16 22:30 Dose: 0.5 mg Neomycin/Polymyxin/Bacitracin (Neosporin Triple Antibiotic Oint) 1 gm TOP Q12 [facility] Last Admin: 09/03/16 10:35 Dose: 1 applic Senna/Docusate Sodium (Senokot S 50 Mg-8.6 Mg) 1 tab PO HS [facility] Last Admin: 09/02/16 22:30 Dose: 1 tab Timolol Maleate (Timoptic 0.5% Ophth Soln) 0 drop OD DAILY [facility] Last Admin: 09/03/16 09:48 Dose: 1 drop Valproate Sodium (Depakene Oral Soln) 250 mg PO BID [facility] Last Admin: 09/03/16 17:18 Dose: 250 mg Vitamin A (Vitamin A & D Oint Ud Foilpak) 1 ea TOP BID [facility] Last Admin: 09/03/16 17:18 Dose: 1 ea - Labs Labs: 09/03/16 07:14 09/03/16 07:14 PT 12.4 SECONDS (9.7-12.2) H 08/18/16 06:26 INR 1.1 08/18/16 06:26 APTT 29 SECONDS (21-34) 08/18/16 06:26 Assessment and Plan - Assessment and Plan (Free Text) Assessment: 1.) Cerebral hemorrhage Neurosurgery on board- Dr. Rose/Yuan- raymon appreciated * s/p [place] hole and evacuation of subdural hemorrhage with [place] and David drain 08/01/16 * s/p right frontotemporal craniotomy; evacuation of acute subdural drain present * Removal of drain on 08/03/16 * Removal of uriel 08/29/16 Neurology on board- Dr. Bonner- help appreciated * Patient is stable and participating with PT/OT. * Monitor the blood pressure. * Continue Depakote 500 mg po qd for seizure ppx, headache, and mood stabilization. * Continue Amantidine. No methylphenidate as per Dr. Bonner. 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 No midline shaft, herniation or hydrocephalus. * Head CT (08/13/16): redemonstrated to small to medium sized hypodense of residual right sided subdural hematoma. Minmindal right to left midline shift. Previously noted small amount of subdural air on prior study has undegone further resoprtion. Persistent mild subjacent mass effect with compression of cerebral sulci and mild compression of right lateral ventricle. No evidence of obstructive hydrocephalus. 2.) Acute respiratory failure S/P trach removal 08/29/16 (trach had been placed 08/15/16) * monitor healing site, bactrim ointment due to erythema * tube feedings supplement due to dysphagia diet (thin pureed)-- held due to constipation; patient has a peg-tube in place which is now capped 09/03/16 because patient is now able to tolerate diet by mouth. * As per GI (Dr. Saxena): Peg tube should remain in place for month and patient should follow outpatient with him Pulm consulted- Dr. Kumari, help appreciated. Continue Duonebs RQ6 [facility] Continue Acetylcysteine 4 ml INH Q6h [facility] Continue Flonase 1 spr Bo BID General Surgery (Dr. Levin) on board Cont to monitor. 3.) Hypertension Continue Lisinopril 10 mg PO Daily. 4.) Diabetes 08/01/16- Hg A1c-5.9 Accuchecks Q6 hours ISS subq Q6H 5.) Constipation Patient had a bowel movement 09/01/16 Mag Citrate ordered. Abdominal xray 08/31: Severe fecal retention in colon. Diet held. Repeat abdominal xray. D5 1/2 NS at 65ml started. 6.) ESBL (extended spectrum beta-lactamase) producing bacteria infection Blood culture negative 08/12, urine culture negative 08/17 * white count trending down: 8.4 * Primaxin stopped 08/28, 10 days given. 7.) Cough Rule out pneumonia Sputum culture 08/22/: normal oral val Cxray 08/27: No significant change. Right kate diaphragmatic pleural calcification or right hepatic dome calcification, appearance unchanged. Trach in place. Biapical pleural thickening with upper lobe granulomatous changes. Hyperinflation suggestive for COPD and or emphysematous changes. 8.) Prophylaxis Lovenox switched to Heparin 5000 u SC Q12 Pepcid 20mg PO daily No benzos Seizure prophylaxis PEG tube in place---> As per GI, PEG tube should stay in place for a month and patient should follow up with Dr. Cortés outpatient
[2016-09-03] MEDS: Docusate-Senna 50 mg-8.6 mg Tab PO SCH (22:19)
[2016-09-03] MEDS: Latanoprost 2.5 ml Opht Soln OD SCH (22:19)
[2016-09-04] MEDS: Albuterol-Ipratrop 3 mg / 0.5 (3 ml) UD INH SCH ×3 (01:43→14:55)
[2016-09-04] MEDS: Acetylcysteine 20% Inhal Soln (4ml) INH SCH ×3 (01:43→14:56)
[2016-09-04 07:46] LABS: BASO # 0.1 K/uL (0.0-0.2); BASO % 1.1 % (0.0-2.0); EOS # 0.6 K/uL (0.0-0.7); EOS % 8.5 % (0.0-4.0); HEMATOCRIT 32.4 % (35.0-51.0); LYMPH # 2.6 K/uL (1.0-4.3); LYMPH % 39.6 % (20.0-40.0); MEAN CELL VOLUME 80.9 fL (80.0-94.0); MEAN CORPUSCULAR HEMOGLOBIN 26.6 pg (27.0-31.0); MEAN CORPUSCULAR HGB CONC 32.9 g/dL (33.0-37.0); MEAN PLATELET VOLUME 9.9 fL (7.2-11.7); MONO # 0.6 K/uL (0.0-0.8); MONO % 9.6 % (0.0-10.0); RED CELL DISTRIBUTION WIDTH 14.4 % (11.5-14.5); WHITE BLOOD COUNT 6.6 K/uL (4.8-10.8)
[2016-09-04 08:12] LABS: CHLORIDE 102 mmol/L (98-107); SODIUM 139 mmol/L (132-148)
[2016-09-04 08:13] LABS: POTASSIUM 3.8 mmol/L (3.6-5.2)
[2016-09-04 08:15] LABS: ALKALINE PHOSPHATASE 86 U/L (38-126); ALT/SGPT 41 U/L (21-72); AST/SGOT 22 U/L (17-59); BILIRUBIN,TOTAL 0.5 mg/dL (0.2-1.3); BLOOD UREA NITROGEN 6 mg/dL (9-20); CARBON DIOXIDE 27 mmol/L (22-30); GFR AFRICAN-AMERICAN > 60; GLUCOSE,RANDOM 91 mg/dL (75-110); PHOSPHOROUS 4.2 mg/dL (2.5-4.5); TOTAL PROTEIN 6.7 g/dL (6.3-8.3)
[2016-09-04 08:16] LABS: MAGNESIUM 2.2 mg/dL (1.6-2.3)
[2016-09-04] MEDS: Fluticasone Nasal 50 mcg/Spray NAS SCH ×2 (09:17→17:31)
[2016-09-04] MEDS: Vitamins A & D Oint UD Foilpak TOP SCH ×2 (09:17→17:39)
[2016-09-04] MEDS: [UNRECOGNIZED DRUG - OTHER] OS SCH ×2 (09:18→17:32)
[2016-09-04] MEDS: Valproic Acid 250 mg/5 ml UD Cup PO SCH ×2 (09:19→17:30)
[2016-09-04] MEDS: Bacitracin/Neomycin/Polymyxin Oint(30GM) TOP SCH (09:19)
[2016-09-04] MEDS ORDERED: Bisacodyl 5mg EC Tab PO ONE (10:45)
[2016-09-04 12:32] VITALS: O2SAT 96
[2016-09-04 15:42] LABS: ABG ALLEN TEST POS; ARTERIAL BLOOD HGB O2 SAT 95.7 % (95.0-98.0); CARBOXYHEMOGLOBIN 2.5 % (0.5-1.5); DRAW SITE RRA; HHB 0.9 % (0.0-5.0); METHEMOGLOBIN 0.9 % (0.0-3.0)
[2016-09-04 15:51] VITALS: BP 107/67; PULSE 82; TEMP 97.6
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
== END 2016-09-04 20:46 | disposition home or self-care (01) | DRG 3 ==
LOC: SUPCPDRO 22:01 → C.ER 22:01 → C.9E 23:46 → C.9I 07-31 00:56 → C.6T 08-19 16:48
PROVIDERS: ADMIT Family Medicine; ATTEND Hospitalist
PROC: 009430Z Drainage of Intracranial Subdural Space with Drainage Device, Percutaneous Approach (ICD-10-PCS; 2016-08-01)
PROC: 00C43ZZ Extirpation of Matter from Intracranial Subdural Space, Percutaneous Approach (ICD-10-PCS; principal; 2016-08-01 07:45)
PROC: 00C40ZZ Extirpation of Matter from Intracranial Subdural Space, Open Approach (ICD-10-PCS; 2016-08-05)
PROC: 30233N1 Transfusion of Nonautologous Red Blood Cells into Peripheral Vein, Percutaneous Approach (ICD-10-PCS; 2016-08-05)
PROC: 5A1945Z Respiratory Ventilation, 24-96 Consecutive Hours (ICD-10-PCS; 2016-08-08)
PROC: 0BH17EZ Insertion of Endotracheal Airway into Trachea, Via Natural or Artificial Opening (ICD-10-PCS; 2016-08-08)
PROC: 3E0G76Z Introduction of Nutritional Substance into Upper GI, Via Natural or Artificial Opening (ICD-10-PCS; 2016-08-08)
PROC: 5A1955Z Respiratory Ventilation, Greater than 96 Consecutive Hours (ICD-10-PCS; 2016-08-13)
PROC: 0BH17EZ Insertion of Endotracheal Airway into Trachea, Via Natural or Artificial Opening (ICD-10-PCS; 2016-08-13)
PROC: 02HV33Z Insertion of Infusion Device into Superior Vena Cava, Percutaneous Approach (ICD-10-PCS; 2016-08-13)
PROC: 0B113F4 Bypass Trachea to Cutaneous with Tracheostomy Device, Percutaneous Approach (ICD-10-PCS; 2016-08-15)
PROC: 0BJ08ZZ Inspection of Tracheobronchial Tree, Via Natural or Artificial Opening Endoscopic (ICD-10-PCS; 2016-08-15)
PROC: 0DH68UZ Insertion of Feeding Device into Stomach, Via Natural or Artificial Opening Endoscopic (ICD-10-PCS; 2016-08-17)
DX: S06.5X0A Traumatic subdural hemorrhage without loss of consciousness, initial encounter (principal); E87.4 Mixed disorder of acid-base balance; J95.821 Acute postprocedural respiratory failure; N39.0 Urinary tract infection, site not specified; A41.9 Sepsis, unspecified organism; G93.89 Other specified disorders of brain; E11.9 Type 2 diabetes mellitus without complications; I10 Essential (primary) hypertension; B96.20 Unspecified Escherichia coli [E. coli] as the cause of diseases classified elsewhere; J98.11 Atelectasis; F41.9 Anxiety disorder, unspecified; K59.09 Other constipation; E87.6 Hypokalemia; R13.10 Dysphagia, unspecified; K44.9 Diaphragmatic hernia without obstruction or gangrene; K29.70 Gastritis, unspecified, without bleeding; R47.81 Slurred speech; V89.2XXA Person injured in unspecified motor-vehicle accident, traffic, initial encounter; R29.91 Unspecified symptoms and signs involving the musculoskeletal system; W19.XXXA Unspecified fall, initial encounter; V02.90XA Pedestrian on foot injured in collision with two- or three-wheeled motor vehicle, unspecified whether traffic or nontraffic accident, initial encounter